=== PATIENT | female | born 1960 | race Caucasian/White ===

== ENCOUNTER → 2017-09-11 | Outpatient (CLI) | payer BC ==
[~2017-09-11] MED LIST: ADVIN25/60 INH; AMT25 PO; CLON1TAB PO; ERGO50002 PO; FLV1 PO; LXP/20 PO; NALT50TA16 PO; NCDT21 EXT; SNG10 PO; SPIR25TA89 PO; THIA100T14 PO; UMEC1INH PO; VST25HP PO
[2017-09-11 13:24] LABS: BASO % 0.2 %; BASO ABS # 0.01 K/uL (0-0.2); EOS % 0.7 %; EOS ABS # 0.04 K/uL (0-0.5); HEMATOCRIT 40.5 % (37-47); HEMOGLOBIN 13.8 g/dL (12.0-16.0); MEAN CELL VOLUME 95.3 fL (80-100); MEAN CORPUSCULAR HEMOGLOBIN 32.5 pg (25-34); MEAN CORPUSCULAR HGB CONC 34.1 g/dl (32-36); MEAN PLATELET VOLUME 9.2 fL (7.4-10.4); MONO ABS # 0.59 K/uL (0.11-0.59); NEUT % 67.1 %; NEUT ABS # 3.97 K/uL (1.4-6.5); PLATELET COUNT 106 K/uL (130-400); RED CELL DISTRIBUTION WIDTH CV 14.3 % (11.5-14.5); RED CELL DISTRIBUTION WIDTH SD 48.8 fL (36.4-46.3); WHITE BLOOD COUNT 5.91 K/uL (4.8-10.8)
[2017-09-11 13:31] LABS: HEMOGLOBIN A1C 5.1 % (4.5-5.6)
[2017-09-11 13:52] LABS: ALBUMIN 3.2 gm/dl (3.4-5.0); BLOOD UREA NITROGEN 11 mg/dl (7-18); CALCIUM 9.4 mg/dl (8.5-10.1); CARBON DIOXIDE 33 mmol/L (21-32); CREATININE 0.66 mg/dl (0.60-1.20); GLUCOSE 86 mg/dl (70-99); LIPASE 175 U/L (73-393); POTASSIUM 3.8 mmol/L (3.5-5.1); SODIUM 136 mmol/L (136-145)
[2017-09-11 14:03] LABS: ALKALINE PHOSPHATASE 83 U/L (45-117); ALT/SGPT 16 U/L (12-78); AST/SGOT 16 U/L (15-37); TOTAL PROTEIN 7.1 gm/dl (6.4-8.2)
== END | disposition home or self-care (01) ==
LOC: C.LAB 12:11
DX: R73.9 Hyperglycemia, unspecified (principal); E78.5 Hyperlipidemia, unspecified; J44.9 Chronic obstructive pulmonary disease, unspecified; Z79.899 Other long term (current) drug therapy

== ENCOUNTER 2018-08-13 15:14 | Inpatient (IN) ==
[2018-08-13] MEDS ORDERED: FOLIC ACID 1 MG in SYRINGE 9.8 ML IV STA (16:20)
[2018-08-13] MEDS ORDERED: THIAMINE HCL 100 MG in SYRINGE 9 ML IV STA (16:20)
[2018-08-13] MEDS ORDERED: SODIUM CHLORIDE 0.9% 1000ML 2,000 ML IV ONE (16:20)
[2018-08-13] MEDS ORDERED: HYDROCORTISONE SOD SUCCINATE 100 MG/2 ML VIAL IV STA (16:20)
[2018-08-13] MEDS ORDERED: ALBUTEROL 0.083% NEBU SOLN 3 ML VIAL NEB STA (16:22)
[2018-08-13] MEDS ORDERED: LEVOFLOXACIN/D5W 750 MG/150 ML BAG IV SCH (16:30)
[2018-08-13] MEDS ORDERED: MULTIVITAMIN TAB PO SCH (16:30)
[2018-08-13] MEDS ORDERED: VANCOMYCIN HCL 1,500 MG in SODIUM CHLORIDE 0.9% 500 ML IV ONE (16:45)
[2018-08-13] MEDS ORDERED: VANCOMYCIN CONSULT ACTIVE PRN ×2 (16:45→20:12)
[2018-08-13 16:47] LABS: Hematocrit (blood only) 38.9 % (37-47); Hemoglobin 13.5 g/dL (12.0-16.0); Mean Corpuscular Hgb Conc 34.7 g/dL (32-36); Mean Platelet Volume 10.3 fL (7.4-10.4); Platelet Count 154 K/uL (130-400); RDW Coefficient of Variation 13.7 % (11.5-14.5); RDW Standard Deviation 46.4 fL (36.4-46.3); Red Blood Count 4.14 M/uL (4.2-5.4); White Blood Count 23.52 K/uL (4.8-10.8)
[2018-08-13 16:47] LABS: iSTAT Creatinine 1.2 mg/dl (0.6-1.3); iSTAT Ionized Calcium 1.02 mmol/l (1.12-1.32); iSTAT Potassium 5.8 mEq/L (3.3-5.0)
--- NOTE | 2018-08-13 16:48 | XRay Report ---
XR chest 1V portable HISTORY: Sepsis COMPARISON: Chest 05/01/2016. FINDINGS: There is a new left lower lobe consolidation. Small focal consolidation also seen within th e left midlung zone. This likely represents a pneumonia. No pneumothorax. The heart is normal in size . The right lung is clear. IMPRESSION: There are new left mid to lower lung zone airspace opacities consistent with a pneumonia. This could be secondary to aspiration. Electronically signed by: Malvin Garcia M.D. 08/13/2018 4:47 PM
[2018-08-13 16:54] LABS: Base Excess VBG -0.5 mEq/L; HCO3 VBG 26 mmol/L; PCO2 VBG 52 mmHg (38-50); PO2 VBG 28 mmHg; pH VBG 7.32 (7.36-7.41)
[2018-08-13 16:56] LABS: Oxygen Saturation VBG < 60.0 %
[2018-08-13 17:09] LABS: Albumin Globulin Ratio 0.3 (0.9-2); Albumin Level 1.8 gm/dl (3.4-5.0); BUN Creatinine Ratio 24.2 (10-20); Bilirubin,Total 0.8 mg/dl (0.2-1); Calcium 9.1 mg/dl (8.5-10.1); Creatinine Clr Calc Pharmacy 33.3 ml/min; Est GFR (African American) 73.2; Est GFR (Non-African American) 63.1; Globulin 5.6 gm/dl (2.5-4.0); Total Protein 7.4 gm/dl (6.4-8.2)
[2018-08-13] MEDS ORDERED: OPTIRAY 320 125ml IV PRN (17:09)
[2018-08-13 17:14] LABS: Potassium 4.1 mmol/L (3.5-5.1)
[2018-08-13 17:24] LABS: ALC (manual) 1.22 K/uL (1.2-3.4); Lymphocytes # (manual) 1.22 K/uL (1.2-3.4); Lymphocytes % (manual) 5.2 %; Monocytes # (manual) 1.83 K/uL (0.11-0.59); Monocytes % (manual) 7.8 %; Polychromasia 1+; Toxic Granulation 2+
[2018-08-13] MEDS ORDERED: CEFEPIME 1,000 MG in SYRINGE 0 ML IV STA (17:28)
--- NOTE | 2018-08-13 17:40 | CT Scan Report ---
ABDOMEN AND PELVIS CT WITH IV CONTRAST CT DOSE: HISTORY: sepsis TECHNIQUE: Multiaxial CT images of the abdomen and pelvis were performed following the use of intrave nous contrast. A dose lowering technique was utilized adhering to the principles of ALARA. COMPARISON STUDY: Abdomen and pelvis CT 04/22/2014. FINDINGS: Dense consolidation within the lingula and left lower lobe with heterogeneous enhancement. There is a moderate hiatus hernia. Small patchy densities within the base the right lung base. A few small cavitary foci within the dense consolidation within the lingula. Therefore, this may represent a necrotizing pneumonia. No pneumoperitoneum. No pneumatosis. Bilateral femoral head avascular necros is no evidence for femoral head collapse. No suspicious lytic or blastic osseous lesions. Mild hepati c steatosis. Mild nodular contour to the liver consistent with cirrhosis. The spleen, adrenal glands, pancreas, and kidneys appear unremarkable. Of note, there is mild motion artifact within the abdomen resulting in suboptimal evaluation. No retroperitoneal lymphadenopathy. Mild calcified plaque within the normal caliber abdominal aorta. No hydronephrosis. The bladder, uterus, and bilateral adnexa are unremarkable. There is mild pelvic floor collapse. No bowel wall thickening or obstruction. Normal a ppendix. Extensive colonic diverticulosis. IMPRESSION: 1. No bowel wall thickening or obstruction. 2. Normal appendix. 3. Mild hepatic cirrhosis. 4. Dense heterogeneous consolidation within the left lung base containing a few small cavitary foci. This likely represents a necrotizing pneumonia. Follow-up is recommended to ensure resolution and to exclude the possibility of underlying mass. This is better appreciated on the same day chest CT. 5. Moderate hiatus hernia. Electronically signed by: Malvin Garcia M.D. 08/13/2018 5:39 PM
--- NOTE | 2018-08-13 17:45 | CT Scan Report ---
CT ANGIOGRAPHY OF THE CHEST, PULMONARY EMBOLUS PROTOCOL CLINICAL HISTORY: Hypotension. Tachycardia. COMPARISON STUDY: Chest radiograph May 01, 2016 and August 13, 2018. TECHNIQUE: Following IV administration of 117 mL of Optiray-320, helical axial images of the chest we re obtained utilizing the pulmonary embolus protocol. Maximal intensity projections and sagittal and coronal reformats were viewed on an independent 3D workstation. IV contrast was administered withou t complication. Automated exposure control was utilized for the study. A dose lowering technique wa s utilized adhering to the principles of ALARA. CT DOSE: 460.76 mGy.cm FINDINGS: No pulmonary emboli are identified. There is no thoracic aortic dissection. The size of th e heart is normal. There is a moderate sized hiatal hernia. There is dense consolidation within the l ingula and the left lower lobe. Scattered additional airspace opacities throughout the lungs are note d. There is a trace left pleural effusion. There is no pneumothorax. Moderate emphysema is present. S ecretions within the bilateral mainstem bronchi are noted. No suspicious osseous lesions within the b laury thorax are noted. The abdomen and pelvis will be reported separately. Minimally enlarged mediasti nal and left hilar lymph nodes are noted. These measure up to 1 cm in short axis diameter. IMPRESSION: 1. No pulmonary emboli identified. 2. Extensive lingular and left lower lobe consolidation consistent with pneumonia/aspiration pneumoni tis. Scattered airspace opacities throughout the lungs which are likely infectious as well. No centra l obstructing mass. Secretions within the airways. 3. Moderate emphysema. 4. Mildly enlarged mediastinal and left hilar lymph nodes which are likely reactive. However a follow -up chest CT in 2 months to ensure resolution is recommended. 5. Moderate-sized hiatal hernia. Electronically signed by: Jeffry Milian M.D. 08/13/2018 5:44 PM
[2018-08-13] MEDS ORDERED: SODIUM CHLORIDE 0.9% 1000ML 1,000 ML IV ONE (17:48)
[2018-08-13 17:52] LABS: INR 1.2 (0.9-1.1); Partial Thromboplastin Ratio 1.1; Partial Thromboplastin Time 29.2 Seconds (21.0-31.0); Prothrombin Time 11.8 Seconds (9.0-12.0)
[2018-08-13] MEDS ORDERED: cefTRIAXone SODIUM 1000MG/50ML D5W ONE (17:58)
--- NOTE | 2018-08-13 18:17 | Critical Care Consultation ---
Date of Consultation August 13, 2018 Assessment & Plan (1) Pneumonia: Neuro- awake alert. watch for signs of alcohol withdrawal CV- hypotension responded to fluids. still appears volume depleted. continue fluids. recheck lactate Pulmonary- acute hypoxic respiratory failure due to pneumonia. continue to titrate o2 for sat >90. if desatting would try high flow NC. ID- sepsis with evidence of end organ dysfunction due to pneumonia. follow cultures. vancomycin, ceftriaxone and azithromycin. check influenza Renal- cr ok. hyponatremia. potassium high on POC but ok on labs GI- diet as tolerated. LFTS increased likely related to alcohol abuse Heme- leukocytosis. heparin or enoxaparin proph Endocrine- blood sugar controlled Dispo- ok for admission to floor History of Present Illness Reason for Consultation: pneumonia, hypoxic respiratory failure History of Present Illness 58 y/o female with a history of COPD, alcohol abuse who presents with shortness of breath worse over the past 5 days. She says all winter she has been short of breath on and off and was given abx twice by PCP last in June. This time she has had a productive cough. denies fevers but has had chills. no sick contacts. Says has been drinking alcohol and smoking more the past month since she was started on adderal which has since been stopped. she has not been eat ing or drinking well for the last few days. Her last drink of alcohol was this morning. In the ED she was found to be hypotensive and hypoxic. after fluids her BP improved and her sat improved with simple face mask. Allergies Allergy/AdvReac Type Severity Reaction Status Date / Time RACIEL Inhibitors AdvReac Mild COUGH Verified 08/13/18 18:06 naltrexone [From Vivitrol] AdvReac Unknown Unverified 08/13/18 18:06 Home Medications Home Medications Medication Instructions Recorded Confirmed Type acamprosate 0 dose PO UNKNOWN 08/13/18 08/13/18 History budesonide-formoterol [Symbicort] 1 dose INHALATION DAILY 08/13/18 08/13/18 History dextroamphetamine-amphetamine 1.5 mg PO DIRECTED 08/13/18 08/13/18 History [Adderall] divalproex 500 mg PO DAILY 08/13/18 08/13/18 History escitalopram oxalate [Lexapro] 20 mg PO DAILY 08/13/18 08/13/18 History trazodone 0 mg PO DAILY PRN 08/13/18 08/13/18 History Patient History Medical History Tachycardia (Acute 08/17/13) Alcohol withdrawal syndrome (Acute) COPD (chronic obstructive pulmonary disease) (Chronic) Asthma (Chronic) Jaundice (Acute) Leukocytosis (Acute 04/21/14) Liver failure, acute (Acute 04/21/14) ETOH abuse (Resolved 08/17/13) Alcoholic hepatitis (Chronic) Social History marital status: Feels Safe at Home: Yes Smoking Status: Current every day smoker Hx Alcohol Use: Yes Review of Systems Constitutional: no fevers + chills no weight loss Eyes: no blurry or double vision EENT: no sore throat, no congestion Respiratory: + cough + shortness of breath Cardiovascular: + chest pain no palpitations GI: no abdominal pain, no nausea, no vomiting, no diarrhea, no constipation Gu: no dysuria, no frequency MSK: no joint pain, + muscle aches Skin: no rash Neuro: no headache, no dizziness, no focal weakness Endocrine: no heat or cold intolerance heme: no easy bruising, no lymphadenopathy Psych: + depression, no anxiety Physical Exam Vital Signs (Past 24 Hours): Last Vital Signs Temp 36.7 C 08/13/18 16:01 Pulse 99 H 08/13/18 17:53 Resp 22 08/13/18 17:53 BP 92/50 L 08/13/18 17:40 Pulse Ox 90 08/13/18 17:53 Physical Exam: Constitutional: Comfortable NAD on simple mask at 5L HEENT: normocephalic atraumatic. dry mucus membranes. no cervical lymphadenopathy CV: RRR nl s1,s2 no murmurs rubs or gallops Lungs: crackles bilaterally. no accessory muscle use Abd: soft nontender nondistended. normal bowel sounds Ext: no edema. no cyanosis, no clubbing Skin: warm dry Neuro: alert and oriented. moving all extremities Psych: normal mood and affect Results & Data Laboratory Results Laboratory Results - last 24 hr 08/13/18 08/13/18 08/13/18 16:28 16:28 16:28 WBC 23.52 H RBC 4.14 L Hgb 13.5 POC Hgb Hct 38.9 POC Hct MCV 94.0 MCH 32.6 MCHC 34.7 RDW Std Deviation 46.4 H RDW Coeff of Don 13.7 Plt Count 154 MPV 10.3 Neutrophils % (Manual) 87.0 Lymphocytes % (Manual) 5.2 Monocytes % (Manual) 7.8 Neutrophils # (Manual) 20.46 H Total Absolute Neuts 20.46 H Lymphocytes # (Manual) 1.22 Total Abs Lymphocytes 1.22 Monocytes # (Manual) 1.83 H Hyposegmented Neuts 1+ Toxic Granulation 2+ Polychromasia 1+ PT Cancelled INR Cancelled APTT Cancelled PTT Ratio Cancelled VBG pH VBG pCO2 VBG pO2 VBG HCO3 VBG O2 Saturation VBG Base Excess Barometric Pressure POC Sodium Sodium 132 L POC Potassium Potassium 4.1 POC Chloride Chloride 92 L Carbon Dioxide 26 POC Total CO2 Anion Gap 14.0 H POC Anion Gap POC BUN BUN 24 H Creatinine 0.98 POC Creatinine Est Cr Clr Drug Dosing 33.3 Est GFR ( Amer) 73.2 Est GFR (Non-Af Amer) 63.1 BUN/Creatinine Ratio 24.2 H Glucose 95 POC Glucose (other) POC Lactic Acid Amor Lactate Calcium 9.1 POC Ioniz Calcium Yann Total Bilirubin 0.8 AST 109 H ALT 95 H Alkaline Phosphatase 178 H Total Protein 7.4 Albumin 1.8 L Globulin 5.6 H Albumin/Globulin Ratio 0.3 L Specimen Hemolysis Ethyl Alcohol mg/dL 08/13/18 08/13/18 08/13/18 16:28 16:30 16:34 WBC RBC Hgb POC Hgb 15.0 Hct POC Hct 44 MCV MCH MCHC RDW Std Deviation RDW Coeff of Don Plt Count MPV Neutrophils % (Manual) Lymphocytes % (Manual) Monocytes % (Manual) Neutrophils # (Manual) Total Absolute Neuts Lymphocytes # (Manual) Total Abs Lymphocytes Monocytes # (Manual) Hyposegmented Neuts Toxic Granulation Polychromasia PT INR APTT PTT Ratio VBG pH VBG pCO2 VBG pO2 VBG HCO3 VBG O2 Saturation VBG Base Excess Barometric Pressure POC Sodium 129 L Sodium POC Potassium 5.8 H Potassium POC Chloride 92 L Chloride Carbon Dioxide POC Total CO2 28 Anion Gap POC Anion Gap 16.0 POC BUN 34 H BUN Creatinine POC Creatinine 1.2 Est Cr Clr Drug Dosing Est GFR ( Amer) Est GFR (Non-Af Amer) BUN/Creatinine Ratio Glucose POC Glucose (other) 104 H POC Lactic Acid Amor 3.50 H Lactate 3.7 H* Calcium POC Ioniz Calcium Yann 1.02 L Total Bilirubin AST ALT Alkaline Phosphatase Total Protein Albumin Globulin Albumin/Globulin Ratio Specimen Hemolysis Ethyl Alcohol mg/dL 08/13/18 08/13/18 08/13/18 16:36 16:49 17:32 WBC RBC Hgb POC Hgb Hct POC Hct MCV MCH MCHC RDW Std Deviation RDW Coeff of Don Plt Count MPV Neutrophils % (Manual) Lymphocytes % (Manual) Monocytes % (Manual) Neutrophils # (Manual) Total Absolute Neuts Lymphocytes # (Manual) Total Abs Lymphocytes Monocytes # (Manual) Hyposegmented Neuts Toxic Granulation Polychromasia PT 11.8 INR 1.2 H APTT 29.2 PTT Ratio 1.1 VBG pH 7.32 L VBG pCO2 52 H VBG pO2 28 VBG HCO3 26 VBG O2 Saturation < 60.0 VBG Base Excess -0.5 Barometric Pressure 734.4 POC Sodium Sodium POC Potassium Potassium POC Chloride Chloride Carbon Dioxide POC Total CO2 Anion Gap POC Anion Gap POC BUN BUN Creatinine POC Creatinine Est Cr Clr Drug Dosing Est GFR ( Amer) Est GFR (Non-Af Amer) BUN/Creatinine Ratio Glucose POC Glucose (other) POC Lactic Acid Amor Lactate Calcium POC Ioniz Calcium Yann Total Bilirubin AST ALT Alkaline Phosphatase Total Protein Albumin Globulin Albumin/Globulin Ratio Specimen Hemolysis Ethyl Alcohol mg/dL 105.[address] ANGIOGRAPHY OF THE CHEST, PULMONARY EMBOLUS PROTOCOL CLINICAL HISTORY: Hypotension. Tachycardia. COMPARISON STUDY: Chest radiograph May 01, 2016 and August 13, 2018. TECHNIQUE: Following IV administration of 117 mL of Optiray-320, helical axial images of the chest were obtained utilizing the pulmonary embolus protocol. Maximal intensity projections and sagittal and coronal reformats were viewed on an independent 3D workstation. IV contrast was administered without complication. Automated exposure control was utilized for the study. A dose lowering technique was utilized adhering to the principles of ALARA. CT DOSE: 460.76 mGy.cm FINDINGS: No pulmonary emboli are identified. There is no thoracic aortic dissection. The size of the heart is normal. There is a moderate sized hiatal hernia. There is dense consolidation within the lingula and the left lower lobe. Scattered additional airspace opacities throughout the lungs are noted. There is a trace left pleural effusion. There is no pneumothorax. Moderate emphysema is present. Secretions within the bilateral mainstem bronchi are noted. No suspicious osseous lesions within the bony thorax are noted. The abdomen and pelvis will be reported separately. Minimally enlarged mediastinal and left hilar lymph nodes are noted. These measure up to 1 cm in short axis diameter. IMPRESSION: 1. No pulmonary emboli identified. 2. Extensive lingular and left lower lobe consolidation consistent with pneumonia/aspiration pneumonitis. Scattered airspace opacities throughout the lungs which are likely infectious as well. No central obstructing mass. Secretions within the airways. 3. Moderate emphysema. 4. Mildly enlarged mediastinal and left hilar lymph nodes which are likely reactive. However a follow-up chest CT in 2 months to ensure resolution is recommended. 5. Moderate-sized hiatal hernia. Electronically signed by: Jeffry Milian M.D. 08/13/2018 5:44 PM
--- NOTE | 2018-08-13 18:48 | History & Physical Report ---
Date of Service August 13, 2018 Assessment & Plan (1) Left lower lobe pneumonia: Necrotizing pneumonia seen on CTA chest on 08/13. Concerning for aspiration; possibly due to intoxication. - Vanc/Zosyn/azithromycin - Pulmonary consult - MRSA swab - Sputum cx - DuoNebs standing and PRN - Prednisone - Supplemental O2 PRN - Consider high flow if needed - Low threshold for ICU transfer as patient is full code and has increased work of breathing (2) COPD (chronic obstructive pulmonary disease): Wheezing and tightness on exam. Pneumonia likely causing a COPD exacerbation as well. - Treatment as above - Continue home Symbicort (3) Severe sepsis: Hypotension and elevated lactate with known source of infection. SIRS 3/4 and qSOFA 2/3. - BP improved to 100/50 with 30 mL/kg IVF bolus - I performed a sepsis follow up exam at 6:00pm. Good cap refill. BP normalized. (4) Alcoholic hepatitis: AST/ALT were 109/95 on admission. Maddrey's DF was only 4, making steroids unneccesary. Has had multiple alcoholic hepatitis episodes during prior admission. CT a/p on 08/13 indicated possible mild cirrhosis. - Monitor LFTs - Defer GI consult unless LFTs rise or there is other, new concern (5) ETOH abuse: Per , drinks 1.75L/wk of vodka. Prior detox episodes in our hospital. No seizures or DTs per patient and . EtOH level was 106 on admission. - TAVO protocol - Vitamin repletion - Continue divalproex (6) DVT prophylaxis: SCDs - Low risk per calculator History of Present Illness Primary Care Provider: Bentley Childs Jr, DO 58yo F w/ hx of COPD and alcohol abuse who presents for shortness of breath, fevers, and chills and found to have a large left lower lobe pneumonia. Patient reports that she has had respiratory symptoms the entire winter. She has been o n 2 rounds of antibiotics and steroids through her PCP. She reports that over the last 2 weeks she has felt increasing shortness of breath, fevers, chills, and sputum production. She also notes that her sputum has gone from clear to white to dark in the last day. Finally she notes a severe frontal headache which began today, and has not improved with [id number] ibuprofen or aspirin. She went to her PCPs office today and was found to be hypoxemic to the 80s on room air, heart rate was 140, and she was hypotensive in the office. She was sent to the emergency department. After 2 L of IV fluid, her heart rate is down to the 90s and her blood pressure is up to 100/50. She is breathing with good O2 saturation on an oxygen mask. Her reports that she drinks 1.75 L of vodka per week. She has had withdrawals in the past, but denies history of DTs or seizures with alcohol withdrawal. Allergies Allergy/AdvReac Type Severity Reaction Status Date / Time RACIEL Inhibitors AdvReac Mild COUGH Verified 08/13/18 18:06 naltrexone [From Vivitrol] AdvReac Unknown Unverified 08/13/18 18:06 Home Medications Home Medications Medication Instructions Recorded Confirmed Type acamprosate 0 dose PO UNKNOWN 08/13/18 08/13/18 History budesonide-formoterol [Symbicort] 2 puff INHALATION BID 08/13/18 08/13/18 History dextroamphetamine-amphetamine 1.5 mg PO DIRECTED 08/13/18 08/13/18 History [Adderall] divalproex 500 mg PO DAILY 08/13/18 08/13/18 History escitalopram oxalate [Lexapro] 20 mg PO DAILY 08/13/18 08/13/18 History trazodone 0 mg PO DAILY PRN 08/13/18 08/13/18 History Past Med/Surg History Medical History Tachycardia (Acute 08/17/13) Alcohol withdrawal syndrome (Acute) COPD (chronic obstructive pulmonary disease) (Chronic) Asthma (Chronic) Jaundice (Acute) Leukocytosis (Acute 04/21/14) Liver failure, acute (Acute 04/21/14) ETOH abuse (Resolved 08/17/13) Alcoholic hepatitis (Chronic) Left lower lobe pneumonia Surgical History S/P removal of ovarian cyst Family History Father Hypertension Social History marital status: Feels Safe at Home: Yes Smoking Status: Current every day smoker Hx Alcohol Use: Yes Review of Systems Constitutional: + fever, + chills, + body aches, + fatigue and + weakness; no sweats Eyes: no diplopia Ear, Nose, Mouth, Throat: no ear trauma, no nasal discharge and no dental pain Respiratory: + cough, + chest congestion, + dyspnea and + wheezing Cardiovascular: no chest pain, no dyspnea on exertion, no palpitations and no syncope Gastrointestinal: no abdominal pain, no belching, no constipation, no diarrhea/loose stools, no blood in stools and no melena Musculoskeletal: no back pain, no joint pain and no muscle weakness Integumentary: no rash, no skin ulcer and no erythema Neurologic: no generalized weakness, no loss of sensation, no numbness and no paresthesia Psychiatric: no depression and no anxiety Endocrine: no fatigue, no polydipsia and no polyphagia Physical Exam Vital Signs (Past 24 Hours): Last Vital Signs Temp 36.7 C 08/13/18 16:01 Pulse 99 H 08/13/18 17:53 Resp 22 08/13/18 17:53 BP 92/50 L 08/13/18 17:40 Pulse Ox 90 08/13/18 17:53 Constitutional: WD/WN, vitals as above + acute distress, + intoxicated appearing, + frail appearing and cooperative; + not well nourished Eyes: EOM intact bilaterally; no conjunctival abnormality ENMT: external ear and nose normal, oropharynx normal Neck: trachea midline, no thyromegaly normal visual inspection Respiratory: normal respiratory effort, lungs clear to auscultation + respiratory distress, + labored breathing, + uses accessory muscles, + cough and + tachypneic Auscultation: + diminished lung sounds (Poor air movement) and + wheezes Cardiovascular: Rate/Rhythm: + tachycardic Heart Sounds: normal S1 and normal S2 Gastrointestinal (Abdomen): Inspection/Auscultation: abdomen normal to inspection; abdomen not distended Musculoskeletal: no cyanosis or clubbing, extremities motor strength 5/5 Skin: no rashes, warm and dry Neurologic: moves all extremities and awake Psychiatric: Orientation: alert, oriented to person and cooperative
[2018-08-13 19:28] LABS: Appearance Urine Clear (Clear); Bilirubin Urine Negative (Negative); Blood Urine Negative (Negative); Color Urine Yellow; Glucose Urine UA Negative (Negative); Ketones Urine Negative (Negative); Leukocyte Esterase Urine Negative (Negative); Nitrite Urine Negative (Negative); Protein Urine Negative (Negative); Specific Gravity Urine 1.023 (1.000-1.030); Urobilinogen Urine Negative (Negative); pH Urine 5.5 (4.5-7.5)
[2018-08-13] MEDS ORDERED: SODIUM CHLORIDE 0.9% 1000ML 1,000 ML IV SCH (20:12)
[2018-08-13] MEDS ORDERED: PIPERACILLIN/TAZOBACTAM 3.375 GM in DEXTROSE 5% 100 ML IV SCH (20:12)
[2018-08-13] MEDS ORDERED: PIPERACILL/TAZOBAC CONSULT ACTIVE PRN (20:12)
[2018-08-13] MEDS ORDERED: LORazepam 1 MG TAB PO PRN (20:12)
[2018-08-13] MEDS ORDERED: LORazepam 1 MG/2 ML VIAL IV PRN (20:12)
[2018-08-13] MEDS ORDERED: ACETAMINOPHEN 500 MG TAB PO PRN (20:12)
[2018-08-13] MEDS ORDERED: ONDANSETRON INJ 2 MG/ML 2 ML VIAL IV PRN (20:12)
[2018-08-13] MEDS: ALBUT/IPRATROP 3MG/0.5MG NEB 3 ML VIAL NEB SCH ×2 (20:28→23:32)
[2018-08-13] MEDS ORDERED: PIPERACILLIN/TAZOBACTAM 4.5 GM in DEXTROSE 5% 100 ML IV ONE (20:45)
[2018-08-13] MEDS: THIAMINE HCL 100 MG TAB PO SCH (21:02)
[2018-08-13] MEDS: AZITHROMYCIN 500 MG in DEXTROSE 5% 250 ML IV SCH (21:20)
[2018-08-13] MEDS: BUDESONIDE/FORMOTEROL FUMARATE 80/4.5 60 PUFFS/INHALER INH SCH (21:20)
[2018-08-13] MEDS: ESCITALOPRAM OXALATE 20 MG TAB PO SCH (21:21)
--- NOTE | 2018-08-13 22:45 | Emergency Department Note ---
Entered by Azeem Lewis acting as a scribe for Robby Flowers DO History of Present Illness General Chief complaint: Referred by Doctor Stated complaint: LACK OF OXYGEN-POSSIBLE PE Source: patient and family Limitations: no limitations History of Present Illness Provider complaint: SOB/Cough Onset (ago): week(s) (1 week) Location: chest Pain Consistency: + other (worsening) Maximum Pain Intensity: 10 Quality: + other (SOB/COUGH) Associated symptoms: + nausea/vomiting, + shortness of breath and + other (diarrhea); no headaches Treatments prior to arrival: other (steroids antibiotics) The patient is a 58 year old female who presents to the Emergency Room with complaints of an acute exacerbation of shortness of breath. The patient notes a significant history of COPD and bronchitis for "a long time." She states that her current exacerbation began 1 week ago. She has seen her primacy care physician 2-3 times for this exacerbation and notes that she was started on multiple antibiotics and steroids. She adds that she has a tendency to get bronchitis. The patient states that her symptoms started 1 week ago with pain in her left shoulder, which then radiated to the right shoulder as well. After the shoulder pain began she then began to develop the worsening cough and runny nose. She notes that the cough has been producing mucous, and does provoke some abdominal pain. Her abdominal pain is worsened by the cough. The patient adds that she has been having vomiting and diarrhea. She had 3 bouts of diarrhea today. She has not vomited today, but states that she has been "dry-heaving." She denies any additional urinary symptoms. The patient's at bedside adds that she wears 2L of oxygen at night, but does not wear oxygen throughout the day. He also notes that the patient has a history of alcohol abuse and dependancy. The patient admits that she began to drink heavily again about 8 mon ths ago. She adds that she had 2 drinks so far today. Home Medications Home Medications Medication Instructions Recorded Confirmed Type budesonide-formoterol [Symbicort] 2 puff INHALATION BID 08/13/18 08/13/18 History dextroamphetamine-amphetamine 1.5 mg PO DIRECTED 08/13/18 08/13/18 History [Adderall] divalproex 500 mg PO DAILY 08/13/18 08/13/18 History escitalopram oxalate [Lexapro] 20 mg PO DAILY 08/13/18 08/13/18 History trazodone 0 mg PO DAILY PRN 08/13/18 08/13/18 History Allergies Allergy/AdvReac Type Severity Reaction Status Date / Time RACIEL Inhibitors AdvReac Mild COUGH Verified 08/13/18 18:06 naltrexone [From Vivitrol] AdvReac Unknown Unverified 08/13/18 18:06 Past Med/Surg History Medical History Tachycardia (Acute 08/17/13) Alcohol withdrawal syndrome (Acute) COPD (chronic obstructive pulmonary disease) (Chronic) Asthma (Chronic) Jaundice (Acute) Leukocytosis (Acute 04/21/14) Liver failure, acute (Acute 04/21/14) ETOH abuse (Resolved 08/17/13) Alcoholic hepatitis (Chronic) Left lower lobe pneumonia Surgical History S/P removal of ovarian cyst Family History Father Hypertension Social History Preferred Language: Greenlandic Communication Ability: Effective Skewer Up Required: No Beliefs That Will Affect Care: None marital status: Current Living Situation: Spouse Other Information That Helps Us Care for You: No Feels Safe at Home: Yes Safety Concerns: Feels Safe At This Time Smoking Status: Current every day smoker Hx Alcohol Use: Yes Hx Substance Use: Yes Review of Systems See HPI for pertinent positives & negatives. and A total of 10 systems reviewed and were otherwise negative Physical Exam Vital Signs Vital Signs - 24 hr 08/13/18 16:01 08/13/18 16:19 08/13/18 16:20 Temperature 36.7 C Temperature Source Oral Sepsis Recent Fever Within 48 Hours No Sepsis New/Unexplained Change in Mental Status No Sepsis Action Taken by Nursing No Action Required Pulse Rate 141 H 136 H Pulse Rate [Right Finger] Pulse Rate from SpO2 Sensor 136 H Respiratory Rate 28 H 29 H Respiratory Effort / Characteristics Respiratory Depth Respiratory Pattern Blood Pressure 79/54 L 80/56 L Blood Pressure [Left Arm] Blood Pressure Mean 62 64 Blood Pressure Mean [Left Arm] Blood Pressure Position Sitting Blood Pressure Position [Left Arm] Pulse Oximetry 89 L 91 84 L Oxygen Delivery Method Nasal Cannula Nasal Cannula Oxygen Flow Rate 4 2 08/13/18 16:22 08/13/18 16:27 08/13/18 16:30 Temperature Temperature Source Sepsis Recent Fever Within 48 Hours Sepsis New/Unexplained Change in Mental Status Sepsis Action Taken by Nursing Pulse Rate 136 H 134 H 131 H Pulse Rate [Right Finger] Pulse Rate from SpO2 Sensor 137 H 135 H 130 H Respiratory Rate 28 H 30 H 31 H Respiratory Effort / Characteristics Respiratory Depth Respiratory Pattern Blood Pressure 91/52 L 77/60 L Blood Pressure [Left Arm] Blood Pressure Mean 65 65 Blood Pressure Mean [Left Arm] Blood Pressure Position Blood Pressure Position [Left Arm] Pulse Oximetry 90 89 L 91 Oxygen Delivery Method Oxygen Flow Rate 08/13/18 16:31 08/13/18 16:35 08/13/18 16:40 Temperature Temperature Source Sepsis Recent Fever Within 48 Hours Sepsis New/Unexplained Change in Mental Status Sepsis Action Taken by Nursing Pulse Rate 131 H 128 H 94 H Pulse Rate [Right Finger] Pulse Rate from SpO2 Sensor 132 H 127 H 95 H Respiratory Rate 26 H 28 H 25 H Respiratory Effort / Characteristics Respiratory Depth Respiratory Pattern Blood Pressure 76/61 L 91/53 L Blood Pressure [Left Arm] Blood Pressure Mean 66 65 Blood Pressure Mean [Left Arm] Blood Pressure Position Blood Pressure Position [Left Arm] Pulse Oximetry 92 93 89 L Oxygen Delivery Method Oxygen Flow Rate 08/13/18 16:41 08/13/18 16:50 08/13/18 16:52 Temperature Temperature Source Sepsis Recent Fever Within 48 Hours Sepsis New/Unexplained Change in Mental Status Sepsis Action Taken by Nursing Pulse Rate 92 H 97 H 96 H Pulse Rate [Right Finger] Pulse Rate from SpO2 Sensor 92 H 95 H 95 H Respiratory Rate 24 28 H 22 Respiratory Effort / Characteristics Respiratory Depth Respiratory Pattern Blood Pressure 95/72 L Blood Pressure [Left Arm] Blood Pressure Mean 79 Blood Pressure Mean [Left Arm] Blood Pressure Position Blood Pressure Position [Left Arm] Pulse Oximetry 91 73 L 94 Oxygen Delivery Method Oxygen Flow Rate 08/13/18 17:27 08/13/18 17:28 08/13/18 17:30 Temperature Temperature Source Sepsis Recent Fever Within 48 Hours Sepsis New/Unexplained Change in Mental Status Sepsis Action Taken by Nursing Pulse Rate 101 H 101 H 100 H Pulse Rate [Right Finger] Pulse Rate from SpO2 Sensor 102 H 102 H 101 H Respiratory Rate 19 25 H 27 H Respiratory Effort / Characteristics Respiratory Depth Respiratory Pattern Blood Pressure 97/74 L Blood Pressure [Left Arm] Blood Pressure Mean 81 Blood Pressure Mean [Left Arm] Blood Pressure Position Blood Pressure Position [Left Arm] Pulse Oximetry 83 L 83 L 88 L Oxygen Delivery Method Oxygen Flow Rate 08/13/18 17:36 08/13/18 17:40 08/13/18 17:41 Temperature Temperature Source Sepsis Recent Fever Within 48 Hours Sepsis New/Unexplained Change in Mental Status Sepsis Action Taken by Nursing Pulse Rate 101 H 99 H 101 H Pulse Rate [Right Finger] Pulse Rate from SpO2 Sensor 101 H 100 H 101 H Respiratory Rate 32 H 30 H 23 Respiratory Effort / Characteristics Respiratory Depth Respiratory Pattern Blood Pressure 84/61 L 92/50 L Blood Pressure [Left Arm] Blood Pressure Mean 68 64 Blood Pressure Mean [Left Arm] Blood Pressure Position Blood Pressure Position [Left Arm] Pulse Oximetry 88 L 89 L 90 Oxygen Delivery Method Oxygen Flow Rate 08/13/18 17:46 08/13/18 17:48 08/13/18 17:50 Temperature Temperature Source Sepsis Recent Fever Within 48 Hours Sepsis New/Unexplained Change in Mental Status Sepsis Action Taken by Nursing Pulse Rate 100 H 102 H 100 H Pulse Rate [Right Finger] Pulse Rate from SpO2 Sensor 100 H 102 H 100 H Respiratory Rate 29 H 27 H 27 H Respiratory Effort / Characteristics Respiratory Depth Respiratory Pattern Blood Pressure 91/70 L 100/65 98/63 L Blood Pressure [Left Arm] Blood Pressure Mean 77 76 74 Blood Pressure Mean [Left Arm] Blood Pressure Position Blood Pressure Position [Left Arm] Pulse Oximetry 91 91 89 L Oxygen Delivery Method Oxygen Flow Rate 08/13/18 17:51 08/13/18 17:53 08/13/18 17:55 Temperature Temperature Source Sepsis Recent Fever Within 48 Hours Sepsis New/Unexplained Change in Mental Status Sepsis Action Taken by Nursing Pulse Rate 99 H 98 H Pulse Rate [Right Finger] 99 H Pulse Rate from SpO2 Sensor 99 H 97 H Respiratory Rate 28 H 22 27 H Respiratory Effort / Characteristics Spontaneous Short of Breath Respiratory Depth Respiratory Pattern Blood Pressure 96/57 L Blood Pressure [Left Arm] Blood Pressure Mean 70 Blood Pressure Mean [Left Arm] Blood Pressure Position Blood Pressure Position [Left Arm] Pulse Oximetry 88 L 90 96 Oxygen Delivery Method Oxymask Oxygen Flow Rate 5 08/13/18 18:00 08/13/18 18:01 08/13/18 18:06 Temperature Temperature Source Sepsis Recent Fever Within 48 Hours Sepsis New/Unexplained Change in Mental Status Sepsis Action Taken by Nursing Pulse Rate 101 H 100 H 102 H Pulse Rate [Right Finger] Pulse Rate from SpO2 Sensor 100 H 100 H 101 H Respiratory Rate 23 26 H 28 H Respiratory Effort / Characteristics Respiratory Depth Respiratory Pattern Blood Pressure 104/57 L 102/70 Blood Pressure [Left Arm] Blood Pressure Mean 72 80 Blood Pressure Mean [Left Arm] Blood Pressure Position Blood Pressure Position [Left Arm] Pulse Oximetry 98 98 96 Oxygen Delivery Method Oxygen Flow Rate 08/13/18 18:10 08/13/18 18:12 08/13/18 18:20 Temperature Temperature Source Sepsis Recent Fever Within 48 Hours Sepsis New/Unexplained Change in Mental Status Sepsis Action Taken by Nursing Pulse Rate 105 H 105 H 107 H Pulse Rate [Right Finger] Pulse Rate from SpO2 Sensor 104 H 105 H 107 H Respiratory Rate 26 H 26 H 29 H Respiratory Effort / Characteristics Respiratory Depth Respiratory Pattern Blood Pressure 133/64 Blood Pressure [Left Arm] Blood Pressure Mean 87 Blood Pressure Mean [Left Arm] Blood Pressure Position Blood Pressure Position [Left Arm] Pulse Oximetry 98 95 90 Oxygen Delivery Method Oxygen Flow Rate 08/13/18 18:27 08/13/18 18:30 08/13/18 18:31 Temperature Temperature Source Sepsis Recent Fever Within 48 Hours Sepsis New/Unexplained Change in Mental Status Sepsis Action Taken by Nursing Pulse Rate 107 H 107 H 106 H Pulse Rate [Right Finger] Pulse Rate from SpO2 Sensor 107 H 107 H 106 H Respiratory Rate 28 H 28 H 29 H Respiratory Effort / Characteristics Respiratory Depth Respiratory Pattern Blood Pressure 100/54 L 97/56 L Blood Pressure [Left Arm] Blood Pressure Mean 69 69 Blood Pressure Mean [Left Arm] Blood Pressure Position Blood Pressure Position [Left Arm] Pulse Oximetry 90 88 L 87 L Oxygen Delivery Method Oxygen Flow Rate 08/13/18 18:35 08/13/18 18:40 08/13/18 18:41 Temperature Temperature Source Sepsis Recent Fever Within 48 Hours Sepsis New/Unexplained Change in Mental Status Sepsis Action Taken by Nursing Pulse Rate 107 H 106 H 106 H Pulse Rate [Right Finger] Pulse Rate from SpO2 Sensor 107 H 105 H 106 H Respiratory Rate 36 H 24 30 H Respiratory Effort / Characteristics Respiratory Depth Respiratory Pattern Blood Pressure 93/59 L 98/64 L Blood Pressure [Left Arm] Blood Pressure Mean 70 75 Blood Pressure Mean [Left Arm] Blood Pressure Position Blood Pressure Position [Left Arm] Pulse Oximetry 87 L 91 92 Oxygen Delivery Method Oxygen Flow Rate 08/13/18 18:45 08/13/18 18:50 08/13/18 18:52 Temperature Temperature Source Sepsis Recent Fever Within 48 Hours Sepsis New/Unexplained Change in Mental Status Sepsis Action Taken by Nursing Pulse Rate 105 H 106 H 103 H Pulse Rate [Right Finger] Pulse Rate from SpO2 Sensor 105 H 106 H 103 H Respiratory Rate 29 H 31 H 25 H Respiratory Effort / Characteristics Respiratory Depth Respiratory Pattern Blood Pressure 100/58 L 96/62 L Blood Pressure [Left Arm] Blood Pressure Mean 72 73 Blood Pressure Mean [Left Arm] Blood Pressure Position Blood Pressure Position [Left Arm] Pulse Oximetry 90 87 L 91 Oxygen Delivery Method Oxygen Flow Rate 08/13/18 18:56 08/13/18 19:00 08/13/18 19:01 Temperature Temperature Source Sepsis Recent Fever Within 48 Hours Sepsis New/Unexplained Change in Mental Status Sepsis Action Taken by Nursing Pulse Rate 100 H 98 H 100 H Pulse Rate [Right Finger] Pulse Rate from SpO2 Sensor 100 H 99 H 100 H Respiratory Rate 24 28 H 24 Respiratory Effort / Characteristics Respiratory Depth Respiratory Pattern Blood Pressure 83/46 L 79/48 L Blood Pressure [Left Arm] Blood Pressure Mean 58 58 Blood Pressure Mean [Left Arm] Blood Pressure Position Blood Pressure Position [Left Arm] Pulse Oximetry 92 93 93 Oxygen Delivery Method Oxygen Flow Rate 08/13/18 19:05 08/13/18 19:11 08/13/18 19:15 Temperature Temperature Source Sepsis Recent Fever Within 48 Hours Sepsis New/Unexplained Change in Mental Status Sepsis Action Taken by Nursing Pulse Rate 98 H 99 H 99 H Pulse Rate [Right Finger] Pulse Rate from SpO2 Sensor 98 H 100 H 99 H Respiratory Rate 23 26 H 30 H Respiratory Effort / Characteristics Respiratory Depth Respiratory Pattern Blood Pressure 81/50 L 92/57 L 83/46 L Blood Pressure [Left Arm] Blood Pressure Mean 60 68 58 Blood Pressure Mean [Left Arm] Blood Pressure Position Blood Pressure Position [Left Arm] Pulse Oximetry 92 86 L 93 Oxygen Delivery Method Oxygen Flow Rate 08/13/18 19:20 08/13/18 20:12 08/13/18 20:14 Temperature 36.7 C Temperature Source Oral Sepsis Recent Fever Within 48 Hours Sepsis New/Unexplained Change in Mental Status Sepsis Action Taken by Nursing Pulse Rate 98 H Pulse Rate [Right Finger] 96 H Pulse Rate from SpO2 Sensor 98 H Respiratory Rate 29 H 24 Respiratory Effort / Characteristics Spontaneous Grunting Labored SOB on Exertion Respiratory Depth Shallow Respiratory Pattern Tachypnea Blood Pressure 82/45 L Blood Pressure [Left Arm] 111/67 Blood Pressure Mean 57 Blood Pressure Mean [Left Arm] 81 Blood Pressure Position Blood Pressure Position [Left Arm] Lying Pulse Oximetry 94 92 92 Oxygen Delivery Method Oxymask Oxymask Oxygen Flow Rate 5 5 08/13/18 20:15 08/13/18 20:28 Temperature Temperature Source Sepsis Recent Fever Within 48 Hours Sepsis New/Unexplained Change in Mental Status Sepsis Action Taken by Nursing Pulse Rate Pulse Rate [Right Finger] 92 H Pulse Rate from SpO2 Sensor Respiratory Rate 20 Respiratory Effort / Characteristics Spontaneous Grunting Labored SOB on Exertion Non-Labored Spontaneous Respiratory Depth Normal Respiratory Pattern Tachypnea Blood Pressure Blood Pressure [Left Arm] Blood Pressure Mean Blood Pressure Mean [Left Arm] Blood Pressure Position Blood Pressure Position [Left Arm] Pulse Oximetry 90 Oxygen Delivery Method Oxymask Oxymask Oxygen Flow Rate 5 6 GENERAL: Sitting up in bed, ill and disheveled appearing, smell of alcohol on breath, non-toxic EYE EXAM: normal conjunctiva. OROPHARYNX: no exudate, no erythema, lips, buccal mucosa, and tongue normal and mucous membranes are dry. NECK: supple, no nuchal rigidity, no adenopathy, non-tender LUNGS: Diminished with bilateral wheezing. Normal chest wall mechanics HEART: Tachycardic. no murmurs, S1 normal and S2 normal ABDOMEN: abdomen soft, non-tender, normo-active bowel, sounds, no masses, no rebound or guarding. BACK: Back is symmetrical on inspection and there is no deformity, no midline tenderness, no CVA tenderness. SKIN: no rashes and no bruising UPPER EXTREMITIES: upper extremities are grossly normal. LOWER EXTREMITIES: No pitting edema. Calves equal bilaterally. NEURO EXAM: Normal sensorium, cranial nerves II-XII grossly intact, normal spee ch, no gross weakness of arms, no gross weakness of legs. Course ED COURSE: Vital signs were reviewed and showed hypotension, tachycardia, and hypoxia. The patients medical record was reviewed The above diagnostic studies were performed and reviewed. ED treatments and interventions as stated above. 1613: The patient was evaluated in room D9. A complete history and physical examination was performed. 1649: I checked on the patient. Her heart rate is down into the 90s. Blood pressure is 97/60. 1728: I discussed the case with Dr. Cool - [facility]. He will evaluate the patient for possible placement to ICU. 1732: I updated the patient at this time. Her blood pressure is 89 systolic. Will start a 3rd bag of fluid. 1741: Dr. Cool is at bedside at this time. 1751: I discussed the case with Dr. Cool, he suggests admitting to medicine. 1758: I reviewed the patient's case with Dr. Urias [facility]. He will evaluate the patient for further management. 1800: Upon reevaluation, the patient is resting in bed. I discussed my findings with the patient and she understands and agrees with the treatment plan. Based on the patients age, coexisting illnesses, exam and lab findings the decision to treat as an inpatient was made. The patient remained stable while under my care. The patient will be evaluated for further management. Administered Medications Albuterol (Duoneb) 3 ml NEB QIDR YASMANI Stop: 09/12/18 20:11 Last Admin: 08/13/18 20:28 Dose: 3 ml Documented by: [id number] Budesonide/Formoterol Fumarate (Symbicort 80mcg/4.5mcg) 2 puffs INH BID YASMANI Stop: 09/12/18 20:59 Last Admin: 08/13/18 21:20 Dose: 2 puffs Documented by: [id number] Divalproex Sodium (Depakote Extended Release) 500 mg PO DAILY YASMANI Stop: 09/13/18 08:59 Last Admin: 08/13/18 21:21 Dose: 500 mg Documented by: [id number] Escitalopram Oxalate (Lexapro) 20 mg PO DAILY YASMANI Stop: 09/13/18 08:59 Last Admin: 08/13/18 21:21 Dose: 20 mg Documented by: [id number] Azithromycin 500 mg/ Dextrose 255 mls @ 125 mls/hr IV DAILY@2100 YASMANI Stop: 08/20/18 20:59 Last Admin: 08/13/18 21:20 Dose: 125 mls/hr Documented by: [id number] Sodium Chloride (Nss 1000ml) 1,000 mls @ 80 mls/hr IV .[id number] YASMANI Stop: 09/12/18 20:11 Last Admin: 08/13/18 20:39 Dose: 80 mls/hr Documented by: [id number] Thiamine HCl (Vitamin B-1) 100 mg PO QAM YASMANI Stop: 09/12/18 20:44 Last Admin: 08/13/18 21:02 Dose: Not Given Documented by: [id number] Discontinued Medications Albuterol (Ventolin 0.083% 2.5mg/3ml) 7.5 mg NEB NOW STA Stop: 08/13/18 16:23 Last Admin: 08/13/18 17:51 Dose: 7.5 mg Documented by: [id number] Ceftriaxone Sodium (Rocephin) Confirm Administered Dose 1,000 mg .ROUTE .STK-MED ONE Stop: 08/13/18 17:59 Last Admin: 08/13/18 18:01 Dose: Not Given Documented by: [id number] Hydrocortisone Sodium Succinate (Solu-Cortef) 100 mg IV NOW STA Stop: 08/13/18 16:21 Last Admin: 08/13/18 17:59 Dose: 100 mg Documented by: [id number] Folic Acid 1 mg/ Syringe 10 mls @ 5 mls/min IV NOW STA Stop: 08/13/18 16:21 Last Admin: 08/13/18 19:11 Dose: 5 mls/min Documented by: [id number] Sodium Chloride (Nss 1000ml) 2,000 mls @ 999 mls/hr IV .Q2H1M ONE Stop: 08/13/18 18:20 Last Infusion: 08/13/18 18:00 Dose: 0 mls/hr Documented by: [id number] Admin: 08/13/18 16:20 Dose: 999 mls/hr Documented by: [id number] Thiamine HCl 100 mg/ Syringe 10 mls @ 2 mls/min IV NOW STA Stop: 08/13/18 16:24 Last Admin: 08/13/18 19:11 Dose: 2 mls/min Documented by: [id number] Levofloxacin/Dextrose (Levaquin/D5w) 750 mg in 150 mls @ 100 mls/hr IV Q24H YASMANI Stop: 08/27/18 16:29 Last Infusion: 08/13/18 19:37 Dose: 0 mls/hr Documented by: [id number] Admin: 08/13/18 17:59 Dose: 100 mls/hr Documented by: [id number] Vancomycin HCl 1,500 mg/ (Sodium Chloride) 530 mls @ 200 mls/hr IV NOW ONE Stop: 08/13/18 19:23 Last Infusion: 08/13/18 20:30 Dose: 0 mls/hr Documented by: [id number] Admin: 08/13/18 17:44 Dose: 200 mls/hr Documented by: [id number] Cefepime HCl 1,000 mg/ Syringe 11.3 mls @ 5.5 mls/min IV NOW STA Stop: 08/13/18 17:30 Last Admin: 08/13/18 18:10 Dose: 5.5 mls/min Documented by: [id number] Sodium Chloride (Nss 1000ml) 1,000 mls @ 999 mls/hr IV .Q1H1M ONE Stop: 08/13/18 18:48 Last Infusion: 08/13/18 18:51 Dose: 0 mls/hr Documented by: [id number] Admin: 08/13/18 18:01 Dose: 999 mls/hr Documented by: [id number] Piperacillin Sod/Tazobactam (Sod 4.5 gm/ Dextrose) 120 mls @ 200 mls/hr IV NOW ONE; Protocol Stop: 08/13/18 21:20 Last Infusion: 08/13/18 22:02 Dose: 0 mls/hr Documented by: [id number] Admin: 08/13/18 21:20 Dose: 200 mls/hr Documented by: [id number] Ioversol (Optiray 320 125ml) 117 ml IV ONCE PRN PRN Reason: Interaction Checking Stop: 08/17/18 17:08 Last Admin: 08/13/18 17:10 Dose: 1 ml Documented by: [id number] Multivitamins (Multivitamin Tab) 1 tab PO QAM YASMANI Stop: 09/12/18 16:29 Last Admin: 08/13/18 19:11 Dose: 1 tab Documented by: [id number] Medical Decision Making Differential Diagnosis Differential diagnosis: Etiologies such as sepsis, UTI, pneumonia, bacteremia, metabolic process, electrolyte abnormalities, cardiac sources, intracerebral event, intra-abdominal process, toxicological process, neurologic process, as well as others were entertained. Medical Records Attestation: I reviewed the patient's medical records. Home Medications Current Medication List: was personally reviewed by me Laboratory Data Attestation: I reviewed the patient's lab results. Result diagrams: 08/13/18 16:28 08/13/18 16:28 Lab Results 04/03/19 04/03/19 04/03/19 Range/Units 16:28 16:28 16:28 WBC 23.52 H (4.8-10.8) K/uL RBC 4.14 L (4.2-5.4) M/uL Hgb 13.5 (12.0-16.0) g/dL POC Hgb (12.0-16.0) g/dl Hct 38.9 (37-47) % POC Hct (37-47) % MCV 94.0 (80-100) fL MCH 32.6 (25-34) pg MCHC 34.7 (32-36) g/dL RDW Std Deviation 46.4 H (36.4-46.3) fL RDW Coeff of Don 13.7 (11.5-14.5) % Plt Count 154 (130-400) K/uL MPV 10.3 (7.4-10.4) fL Neutrophils % (Manual) 87.0 % Lymphocytes % (Manual) 5.2 % Monocytes % (Manual) 7.8 % Neutrophils # (Manual) 20.46 H (1.4-6.5) K/uL Total Absolute Neuts 20.46 H (1.4-6.5) K/uL Lymphocytes # (Manual) 1.22 (1.2-3.4) K/uL Total Abs Lymphocytes 1.22 (1.2-3.4) K/uL Monocytes # (Manual) 1.83 H (0.11-0.59) K/uL Hyposegmented Neuts 1+ Toxic Granulation 2+ Polychromasia 1+ PT Cancelled INR Cancelled APTT Cancelled PTT Ratio Cancelled VBG pH (7.36-7.41) VBG pCO2 (38-50) mmHg VBG pO2 mmHg VBG HCO3 mmol/L VBG O2 Saturation % VBG Base Excess mEq/L Barometric Pressure mm/Hg POC Sodium (135-144) mEq/L Sodium 132 L (136-145) mmol/L POC Potassium (3.3-5.0) mEq/L Potassium 4.1 (3.5-5.1) mmol/L POC Chloride (101-112) mEq/L Chloride 92 L (98-107) mmol/L Carbon Dioxide 26 (21-32) mmol/L POC Total CO2 (24-31) mEq/l Anion Gap 14.0 H (3-11) POC Anion Gap (16-25) mmol/L POC BUN (7-18) mg/dl BUN 24 H (7-18) mg/dl Creatinine 0.98 (0.6-1.2) mg/dl POC Creatinine (0.6-1.3) mg/dl Est Cr Clr Drug Dosing 33.3 ml/min Est GFR ( Amer) 73.2 Est GFR (Non-Af Amer) 63.1 BUN/Creatinine Ratio 24.2 H (10-20) Glucose 95 (70-99) mg/dl POC Glucose (other) (70-99) mg/dl POC Lactic Acid Amor (0.90-1.70) mmol/L Lactate (0.4-2.0) mmol/L Calcium 9.1 (8.5-10.1) mg/dl POC Ioniz Calcium Yann (1.12-1.32) mmol/l Total Bilirubin 0.8 (0.2-1) mg/dl AST 109 H (15-37) U/L ALT 95 H (12-78) U/L Alkaline Phosphatase 178 H (45-117) U/L Total Protein 7.4 (6.4-8.2) gm/dl Albumin 1.8 L (3.4-5.0) gm/dl Globulin 5.6 H (2.5-4.0) gm/dl Albumin/Globulin Ratio 0.3 L (0.9-2) Specimen Hemolysis Urine Color Urine Appearance (Clear) Urine pH (4.5-7.5) Ur Specific [place] (1.000-1.030) Urine Protein (Negative) Urine Glucose (UA) (Negative) Urine Ketones (Negative) Urine Blood (Negative) Urine Nitrite (Negative) Urine Bilirubin (Negative) Urine Urobilinogen (Negative) Ur Leukocyte Esterase (Negative) Nasal Screen MRSA (PCR) (Negative) Ethyl Alcohol mg/dL (0-3) mg/dl 08/13/18 08/13/18 08/13/18 Range/Units 16:28 16:30 16:34 WBC (4.8-10.8) K/uL RBC (4.2-5.4) M/uL Hgb (12.0-16.0) g/dL POC Hgb 15.0 (12.0-16.0) g/dl Hct (37-47) % POC Hct 44 (37-47) % MCV (80-100) fL MCH (25-34) pg MCHC (32-36) g/dL RDW Std Deviation (36.4-46.3) fL RDW Coeff of Don (11.5-14.5) % Plt Count (130-400) K/uL MPV (7.4-10.4) fL Neutrophils % (Manual) % Lymphocytes % (Manual) % Monocytes % (Manual) % Neutrophils # (Manual) (1.4-6.5) K/uL Total Absolute Neuts (1.4-6.5) K/uL Lymphocytes # (Manual) (1.2-3.4) K/uL Total Abs Lymphocytes (1.2-3.4) K/uL Monocytes # (Manual) (0.11-0.59) K/uL Hyposegmented Neuts Toxic Granulation Polychromasia PT INR APTT PTT Ratio VBG pH (7.36-7.41) VBG pCO2 (38-50) mmHg VBG pO2 mmHg VBG HCO3 mmol/L VBG O2 Saturation % VBG Base Excess mEq/L Barometric Pressure mm/Hg POC Sodium 129 L (135-144) mEq/L Sodium (136-145) mmol/L POC Potassium 5.8 H (3.3-5.0) mEq/L Potassium (3.5-5.1) mmol/L POC Chloride 92 L (101-112) mEq/L Chloride (98-107) mmol/L Carbon Dioxide (21-32) mmol/L POC Total CO2 28 (24-31) mEq/l Anion Gap (3-11) POC Anion Gap 16.0 (16-25) mmol/L POC BUN 34 H (7-18) mg/dl BUN (7-18) mg/dl Creatinine (0.6-1.2) mg/dl POC Creatinine 1.2 (0.6-1.3) mg/dl Est Cr Clr Drug Dosing ml/min Est GFR ( Amer) Est GFR (Non-Af Amer) BUN/Creatinine Ratio (10-20) Glucose (70-99) mg/dl POC Glucose (other) 104 H (70-99) mg/dl POC Lactic Acid Amor 3.50 H (0.90-1.70) mmol/L Lactate 3.7 H* (0.4-2.0) mmol/L Calcium (8.5-10.1) mg/dl POC Ioniz Calcium Yann 1.02 L (1.12-1.32) mmol/l Total Bilirubin (0.2-1) mg/dl AST (15-37) U/L ALT (12-78) U/L Alkaline Phosphatase (45-117) U/L Total Protein (6.4-8.2) gm/dl Albumin (3.4-5.0) gm/dl Globulin (2.5-4.0) gm/dl Albumin/Globulin Ratio (0.9-2) Specimen Hemolysis Urine Color Urine Appearance (Clear) Urine pH (4.5-7.5) Ur Specific [place] (1.000-1.030) Urine Protein (Negative) Urine Glucose (UA) (Negative) Urine Ketones (Negative) Urine Blood (Negative) Urine Nitrite (Negative) Urine Bilirubin (Negative) Urine Urobilinogen (Negative) Ur Leukocyte Esterase (Negative) Nasal Screen MRSA (PCR) (Negative) Ethyl Alcohol mg/dL (0-3) mg/dl 08/13/18 08/13/18 08/13/18 Range/Units 16:36 16:49 17:32 WBC (4.8-10.8) K/uL RBC (4.2-5.4) M/uL Hgb (12.0-16.0) g/dL POC Hgb (12.0-16.0) g/dl Hct (37-47) % POC Hct (37-47) % MCV (80-100) fL MCH (25-34) pg MCHC (32-36) g/dL RDW Std Deviation (36.4-46.3) fL RDW Coeff of Don (11.5-14.5) % Plt Count (130-400) K/uL MPV (7.4-10.4) fL Neutrophils % (Manual) % Lymphocytes % (Manual) % Monocytes % (Manual) % Neutrophils # (Manual) (1.4-6.5) K/uL Total Absolute Neuts (1.4-6.5) K/uL Lymphocytes # (Manual) (1.2-3.4) K/uL Total Abs Lymphocytes (1.2-3.4) K/uL Monocytes # (Manual) (0.11-0.59) K/uL Hyposegmented Neuts Toxic Granulation Polychromasia PT 11.8 INR 1.2 H APTT 29.2 PTT Ratio 1.1 VBG pH 7.32 L (7.36-7.41) VBG pCO2 52 H (38-50) mmHg VBG pO2 28 mmHg VBG HCO3 26 mmol/L VBG O2 Saturation < 60.0 % VBG Base Excess -0.5 mEq/L Barometric Pressure 734.4 mm/Hg POC Sodium (135-144) mEq/L Sodium (136-145) mmol/L POC Potassium (3.3-5.0) mEq/L Potassium (3.5-5.1) mmol/L POC Chloride (101-112) mEq/L Chloride (98-107) mmol/L Carbon Dioxide (21-32) mmol/L POC Total CO2 (24-31) mEq/l Anion Gap (3-11) POC Anion Gap (16-25) mmol/L POC BUN (7-18) mg/dl BUN (7-18) mg/dl Creatinine (0.6-1.2) mg/dl POC Creatinine (0.6-1.3) mg/dl Est Cr Clr Drug Dosing ml/min Est GFR ( Amer) Est GFR (Non-Af Amer) BUN/Creatinine Ratio (10-20) Glucose (70-99) mg/dl POC Glucose (other) (70-99) mg/dl POC Lactic Acid Amor (0.90-1.70) mmol/L Lactate (0.4-2.0) mmol/L Calcium (8.5-10.1) mg/dl POC Ioniz Calcium Yann (1.12-1.32) mmol/l Total Bilirubin (0.2-1) mg/dl AST (15-37) U/L ALT (12-78) U/L Alkaline Phosphatase (45-117) U/L Total Protein (6.4-8.2) gm/dl Albumin (3.4-5.0) gm/dl Globulin (2.5-4.0) gm/dl Albumin/Globulin Ratio (0.9-2) Specimen Hemolysis Urine Color Urine Appearance (Clear) Urine pH (4.5-7.5) Ur Specific [place] (1.000-1.030) Urine Protein (Negative) Urine Glucose (UA) (Negative) Urine Ketones (Negative) Urine Blood (Negative) Urine Nitrite (Negative) Urine Bilirubin (Negative) Urine Urobilinogen (Negative) Ur Leukocyte Esterase (Negative) Nasal Screen MRSA (PCR) (Negative) Ethyl Alcohol mg/dL 105.9 H (0-3) mg/dl 08/13/18 08/13/18 Range/Units 18:55 20:45 WBC (4.8-10.8) K/uL RBC (4.2-5.4) M/uL Hgb (12.0-16.0) g/dL POC Hgb (12.0-16.0) g/dl Hct (37-47) % POC Hct (37-47) % MCV (80-100) fL MCH (25-34) pg MCHC (32-36) g/dL RDW Std Deviation (36.4-46.3) fL RDW Coeff of Don (11.5-14.5) % Plt Count (130-400) K/uL MPV (7.4-10.4) fL Neutrophils % (Manual) % Lymphocytes % (Manual) % Monocytes % (Manual) % Neutrophils # (Manual) (1.4-6.5) K/uL Total Absolute Neuts (1.4-6.5) K/uL Lymphocytes # (Manual) (1.2-3.4) K/uL Total Abs Lymphocytes (1.2-3.4) K/uL Monocytes # (Manual) (0.11-0.59) K/uL Hyposegmented Neuts Toxic Granulation Polychromasia PT INR APTT PTT Ratio VBG pH (7.36-7.41) VBG pCO2 (38-50) mmHg VBG pO2 mmHg VBG HCO3 mmol/L VBG O2 Saturation % VBG Base Excess mEq/L Barometric Pressure mm/Hg POC Sodium (135-144) mEq/L Sodium (136-145) mmol/L POC Potassium (3.3-5.0) mEq/L Potassium (3.5-5.1) mmol/L POC Chloride (101-112) mEq/L Chloride (98-107) mmol/L Carbon Dioxide (21-32) mmol/L POC Total CO2 (24-31) mEq/l Anion Gap (3-11) POC Anion Gap (16-25) mmol/L POC BUN (7-18) mg/dl BUN (7-18) mg/dl Creatinine (0.6-1.2) mg/dl POC Creatinine (0.6-1.3) mg/dl Est Cr Clr Drug Dosing ml/min Est GFR ( Amer) Est GFR (Non-Af Amer) BUN/Creatinine Ratio (10-20) Glucose (70-99) mg/dl POC Glucose (other) (70-99) mg/dl POC Lactic Acid Amor (0.90-1.70) mmol/L Lactate (0.4-2.0) mmol/L Calcium (8.5-10.1) mg/dl POC Ioniz Calcium Yann (1.12-1.32) mmol/l Total Bilirubin (0.2-1) mg/dl AST (15-37) U/L ALT (12-78) U/L Alkaline Phosphatase (45-117) U/L Total Protein (6.4-8.2) gm/dl Albumin (3.4-5.0) gm/dl Globulin (2.5-4.0) gm/dl Albumin/Globulin Ratio (0.9-2) Specimen Hemolysis Urine Color Yellow Urine Appearance Clear (Clear) Urine pH 5.5 (4.5-7.5) Ur Specific [place] 1.023 (1.000-1.030) Urine Protein Negative (Negative) Urine Glucose (UA) Negative (Negative) Urine Ketones Negative (Negative) Urine Blood Negative (Negative) Urine Nitrite Negative (Negative) Urine Bilirubin Negative (Negative) Urine Urobilinogen Negative (Negative) Ur Leukocyte Esterase Negative (Negative) Nasal Screen MRSA (PCR) Negative (Negative) Ethyl Alcohol mg/dL (0-3) mg/dl Imaging Data Attestation: I personally reviewed and interpreted this imaging study as follows: Radiologist's Impression: ABDOMEN AND PELVIS CT WITH IV CONTRAST CT DOSE: HISTORY: sepsis TECHNIQUE: Multiaxial CT images of the abdomen and pelvis were performed following the use of intravenous contrast. A dose lowering technique was utilized adhering to the principles of ALARA. COMPARISON STUDY: Abdomen and pelvis CT 04/22/2014. FINDINGS: Dense consolidation within the lingula and left lower lobe with heterogeneous enhancement. There is a moderate hiatus hernia. Small patchy densities within the base the right lung base. A few small cavitary foci within the dense consolidation within the lingula. Therefore, this may represent a necrotizing pneumonia. No pneumoperitoneum. No pneumatosis. Bilateral femoral head avascular necrosis no evidence for femoral head collapse. No suspicious lytic or blastic osseous lesions. Mild hepatic steatosis. Mild nodular contour to the liver consistent with cirrhosis. The spleen, adrenal glands, pancreas, a nd kidneys appear unremarkable. Of note, there is mild motion artifact within the abdomen resulting in suboptimal evaluation. No retroperitoneal lymphadenopathy. Mild calcified plaque within the normal caliber abdominal aorta. No hydronephrosis. The bladder, uterus, and bilateral adnexa are unremark able. There is mild pelvic floor collapse. No bowel wall thickening or obstruction. Normal appendix. Extensive colonic diverticulosis. IMPRESSION: 1. No bowel wall thickening or obstruction. 2. Normal appendix. 3. Mild hepatic cirrhosis. 4. Dense heterogeneous consolidation within the left lung base containing a few small cavitary foci. This likely represents a necrotizing pneumonia. Follow-up is recommended to ensure resolution and to exclude the possibility of underlying mass. This is better appreciated on the same day chest CT. 5. Moderate hiatus hernia. Electronically signed by: Malvin Garcia M.D. 08/13/2018 5:[address] ANGIOGRAPHY OF THE CHEST, PULMONARY EMBOLUS PROTOCOL CLINICAL HISTORY: Hypotension. Tachycardia. COMPARISON STUDY: Chest radiograph May 01, 2016 and August 13, 2018. TECHNIQUE: Following IV administration of 117 mL of Optiray-320, helical axial images of the chest were obtained utilizing the pulmonary embolus protocol. Maximal intensity projections and sagittal and coronal reformats were viewed on an independent 3D workstation. IV contrast was administered without complication. Automated exposure control was utilized for the study. A dose lowering technique was utilized adhering to the principles of ALARA. CT DOSE: 460.76 mGy.cm FINDINGS: No pulmonary emboli are identified. There is no thoracic aortic dissection. The size of the heart is normal. There is a moderate sized hiatal hernia. There is dense consolidation within the lingula and the left lower lobe. Scattered additional airspace opacities throughout the lungs are noted. There is a trace left pleural effusion. There is no pneumothorax. Moderate emphysema is present. Secretions within the bilateral mainstem bronchi are noted. No suspic ious osseous lesions within the bony thorax are noted. The abdomen and pelvis will be reported separately. Minimally enlarged mediastinal and left hilar lymph nodes are noted. These measure up to 1 cm in short axis diameter. IMPRESSION: 1. No pulmonary emboli identified. 2. Extensive lingular and left lower lobe consolidation consistent with pneumonia/aspiration pneumonitis. Scattered airspace opacities throughout the lungs which are likely infectious as well. No central obstructing mass. S ecretions within the airways. 3. Moderate emphysema. 4. Mildly enlarged mediastinal and left hilar lymph nodes which are likely reactive. However a follow-up chest CT in 2 months to ensure resolution is recommended. 5. Moderate-sized hiatal hernia. Electronically signed by: Jeffry Milian M.D. 08/13/2018 5:44 PM XR chest 1V portable HISTORY: Sepsis COMPARISON: Chest 05/01/2016. FINDINGS: There is a new left lower lobe consolidation. Small focal conso lidation also seen within the left midlung zone. This likely represents a pneumonia. No pneumothorax. The heart is normal in size. The right lung is clear. IMPRESSION: There are new left mid to lower lung zone airspace opacities consistent with a pneumonia. This could be secondary to aspiration. Electronically signed by: Malvin Garcia M.D. 08/13/2018 4:47 PM ECG Data Attestation: I personally reviewed and interpreted this ECG as follows: Indication: SOB/dyspnea Rate (beats per minute): 100 Rhythm: sinus tachycardia Findings: + other (Normal axis) and + Q waves (septal); no PVC Blood Pressure Blood Pressure Findings: Low blood pressure Blood Pressure Disposition: further management by hospitalist BERNARDA Narrative Patient is a 58-year-old female who presents the ER for weakness and shortness of breath. Upon presentation blood pressures systolic are in the 60s-70s. Heart rate was in the 140s. Pulse ox was in the high 70s. Sepsis alert was called. IVs were established. Labs show leukocytosis of 23.5 thousand. No significant anemia. INR was unremarkable. VBG shows a pH of 7.3. CO2 slightly elevated at 52. Mild hyponatremia. Creatinine was unremarkable. Lactate was 3.7. Mild transaminitis. UA was unremarkable. Alcohol was positive. Chest x- ray showed a left lower lobe infiltrate. CT of the chest and abdomen confirms a necrotizing pneumonia. 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 Patient was updated bedside. Patient was given 3 L IV normal saline. She was given IV Levaquin, cefepime and vancomycin. He was updated and admitted on 6 L nasal cannula. Heart rate trended down from the 140s to the high 90s. Systolic blood pressures increased from the 60s to the low 100s. Impression & Plan Sepsis, Pneumonia, Hypoxia Critical Care Time I have personally spent greater than 75 minutes of critical care time in the direct management of this patient. This includes bedside care, interpretation of diagnostic studies, and testing, discussion with consultants, patient, and family members, and other required patient management activities. This 75 minutes is in excess of all separately billable procedures. Critical Care Time: Yes Total Critical Care Time: 75 Discharge Plan Visit Data *Final* Discharge Date/Time: 08/13/18 20:12 Chief Complaint: Referred by Doctor Stated Complaint: LACK OF OXYGEN-POSSIBLE PE ED Provider: Robby Flowers Discharge Problem: Sepsis, Pneumonia, Hypoxia Patient Disposition: Admitted As Inpatient Discharge Instructions Interventions: ED Discharge Assessment Last Done: 08/13/18 20:12 Discharge Problem: Sepsis Qualifiers: Sepsis type: sepsis due to unspecified organism Qualified Code(s): A41.9 - Sepsis, unspecified organism Pneumonia Qualifiers: Pneumonia type: due to unspecified organism Laterality: unspecified laterality Lung location: unspecified part of lung Qualified Code(s): J18.9 - Pneumonia, unspecified organism The scribe's documentation has been prepared under my direction and personally reviewed by me in its entirety. I confirm that the note above accurately reflects all work, treatment, procedures, and medical decision making performed by me.
[2018-08-14] MEDS ORDERED: PIPERACILLIN/TAZOBACTAM 4.5 GM in DEXTROSE 5% 100 ML IV SCH (02:00)
[2018-08-14] MEDS ORDERED: PNEUMOCOCCAL ADMINISTRATION CHARGE ONE (02:15)
[2018-08-14] MEDS ORDERED: PNEUMOCOCCAL POLYSACCHARIDES 25 MCG/0.5 ML VIAL/SYR IM ONE (02:15)
[2018-08-14] MEDS: PIPERACILLIN/TAZOBACTAM 3.375 GM in DEXTROSE 5% 100 ML IV SCH ×3 (02:55→17:59)
[2018-08-14 06:41] LABS: Hematocrit (blood only) 32.5 % (37-47); Hemoglobin 10.8 g/dL (12.0-16.0); Mean Corpuscular Hgb Conc 33.2 g/dL (32-36); Mean Corpuscular Volume 95.6 fL (80-100); Mean Platelet Volume 9.4 fL (7.4-10.4); Nucleated RBC # (auto) 0.03 K/uL (0-0); Nucleated RBC % (auto) 0.2 %; Platelet Count 110 K/uL (130-400); RDW Coefficient of Variation 13.9 % (11.5-14.5); RDW Standard Deviation 48.5 fL (36.4-46.3)
[2018-08-14 07:05] LABS: Albumin Level 1.4 gm/dl (3.4-5.0); BUN Creatinine Ratio 31.1 (10-20); Calcium 7.5 mg/dl (8.5-10.1); Creatinine Clr Calc Pharmacy 83.4 ml/min; Est GFR (African American) 115.6; Est GFR (Non-African American) 99.8; Magnesium 1.7 mg/dl (1.8-2.4)
[2018-08-14 07:09] LABS: Albumin Globulin Ratio 0.3 (0.9-2); Bilirubin,Total 0.5 mg/dl (0.2-1); Globulin 4.1 gm/dl (2.5-4.0); Total Protein 5.5 gm/dl (6.4-8.2)
[2018-08-14] MEDS: ALBUT/IPRATROP 3MG/0.5MG NEB 3 ML VIAL NEB SCH ×4 (07:13→19:11)
[2018-08-14 07:25] LABS: Basophils # (auto) 0.02 K/uL (0-0.2); Basophils % (auto) 0.1 %; Immature Granulocytes # (auto) 0.23 K/uL (0.00-0.02); Immature Granulocytes % (auto) 1.4 %; Lymphocytes % (auto) 4.4 %; Monocytes # (auto) 0.92 K/uL (0.11-0.59); Monocytes % (auto) 5.8 %; Neutrophils # (auto) 14.03 K/uL (1.4-6.5); Neutrophils % (auto) 88.3 %; Rouleaux 1+
[2018-08-14] MEDS: POTASSIUM CHLORIDE 40 MEQ in SODIUM CHLORIDE 0.9% 1000ML 1,000 ML IV SCH ×2 (08:17→20:37)
[2018-08-14] MEDS: BUDESONIDE/FORMOTEROL FUMARATE 80/4.5 60 PUFFS/INHALER INH SCH ×2 (08:19→20:23)
[2018-08-14] MEDS: predniSONE 50 MG TAB PO SCH (08:24)
[2018-08-14] MEDS: THIAMINE HCL 100 MG TAB PO SCH (08:24)
[2018-08-14] MEDS ORDERED: Nursing to Pharmacy Communication ONE (08:42)
[2018-08-14] MEDS ORDERED: DIVALPROEX EXTENDED RELEASE 500 MG TAB PO SCH (09:00)
[2018-08-14] MEDS ORDERED: VANCOMYCIN HCL 1,000 MG in SODIUM CHLORIDE 0.9% 250 ML IV SCH (10:00)
--- NOTE | 2018-08-14 10:58 | Pulmonology Progress Note ---
Date of Service August 14, 2018 Assessment & Plan (1) Pneumonia: Neuro- awake alert. watch for signs of alcohol withdrawal. has mild tremor CV- hypotension responded to fluids. continue fluids. Pulmonary- acute hypoxic respiratory failure due to pneumonia. continue to titrate o2 for sat >90. if desatting would try high flow NC. COPD on albuterol, symbicort, prednisone ID- sepsis with evidence of end organ dysfunction due to pneumonia and gram + bacteremia await speciation and sensitivities. continue abx. ok to stop azithromycin Renal- cr ok. hyponatremia improved with fluids. hypokalemia replace GI- diet as tolerated. LFTS increased likely related to alcohol abuse Heme- leukocytosis improved. SCD proph Endocrine- blood sugar controlled Subjective improving shortness of breath Physical Exam Vital Signs (Past 24 Hours): Last Vital Signs Temp 36.5 C 08/14/18 06:51 Pulse 75 08/14/18 07:13 Resp 18 08/14/18 07:13 BP 103/65 08/14/18 06:51 Pulse Ox 96 08/14/18 08:57 Physical Exam: Constitutional: Comfortable NAD on NC HEENT: normocephalic atraumatic. dry mucus membranes. no cervical lymphadenopathy CV: RRR nl s1,s2 no murmurs rubs or gallops Lungs: slight crackles bilaterally improved. no accessory muscle use Abd: soft nontender nondistended. normal bowel sounds Ext: no edema. no cyanosis, no clubbing Skin: warm dry Neuro: alert and oriented. moving all extremities. mild tremor Psych: normal mood and affect
--- NOTE | 2018-08-14 12:42 | Hospitalist Progress Note ---
Date of Service August 14, 2018 Assessment & Plan (1) Left lower lobe pneumonia: Necrotizing pneumonia seen on CTA chest on 08/13. Concerning for aspiration; possibly due to intoxication. - continue Zosyn, stop Vanco due to MRSA swab negative, stop Zithromax - blood cultures growing gram positive cocci, repeat tomorrow - Sputum cx shows no growth at this time - DuoNebs standing and PRN - Prednisone for COPD breathing much improved, down to 3L nasal canula WBC down to 15k keep on tele (2) COPD (chronic obstructive pulmonary disease): Wheezing and tightness on exam. Pneumonia likely causing a COPD exacerbation as well. - Treatment as above - Continue home Symbicort continue Prednisone, consider taper on discharge (3) Severe sepsis: Hypotension and elevated lactate with known source of infection. SIRS 3/4 and qSOFA 2/3 at time of admission BP responded well to IV fluid boluses, continue NSS at 80cc/hr, still with poor oral intake follow up on final results of blood cultures, preliminary growth shows gram positive cocci (4) Alcoholic hepatitis: AST/ALT were 109/95 on admission. Maddrey's DF was only 4, making steroids unneccesary. Has had multiple alcoholic hepatitis episodes during prior admission. CT a/p on 08/13 indicated possible mild cirrhosis. - AST and ALT normal today continue to follow (5) ETOH abuse: Per , drinks 1.75L/wk of vodka. Prior detox episodes in our hospital. No seizures or DTs per patient and . EtOH level was 106 on admission. - TAVO protocol - Vitamin repletion - Continue divalproex mild hand tremor today, feeling okay (6) Hypokalemia: low at 3.0, added 40mEq of K to IV fluids, repeat tomorrow (7) DVT prophylaxis: SCDs - Low risk per calculator Subjective patient feeling better this morning after fluids and antibiotics sleeping well appetite is not great but a little better having some mild hand tremors, no signs of significant withdrawal says she drinks 4-5 glasses of Vodka every night says she needs to be in [place] by Saturday morning for her disability hearing reviewed labs, WBC down to 15k, Hb 10 K low at 3.0, Cr stable at 0.6 blood cultures growing gram positive cocci, both sets discussed with Dr. Cool, appreciate his input Review of Systems All systems reviewed & are unremarkable except as noted in HPI & below Constitutional: + chills, + fatigue and + weakness Respiratory: + cough, + pain with cough and + sputum production Cardiovascular: no chest pain Physical Exam Vital Signs (Past 24 Hours): Last Vital Signs Temp 37.1 C 08/14/18 11:48 Pulse 83 08/14/18 11:48 Resp 24 08/14/18 11:48 BP 99/61 L 08/14/18 11:48 Pulse Ox 96 08/14/18 11:48 Constitutional: WD/WN, vitals as above Eyes: PERRL, conjunctivae normal, anicteric sclerae ENMT: external ear and nose normal, oropharynx normal Neck: trachea midline, no thyromegaly Respiratory: normal respiratory effort and + cough; no respiratory distress Auscultation: + crackles (left base) and + rhonchi (left side); no wheezes Cardiovascular: RRR, no murmur, no edema Gastrointestinal (Abdomen): normal bowel sounds, soft, nontender, no hepatosplenomegaly Musculoskeletal: no cyanosis or clubbing, extremities motor strength 5/5 Skin: no rashes, warm and dry Neurologic: patellar DTR's 2+ bilat, sensation intact and PERRL, EOMI, accommodation nl, no face palsy, no dysarthria Motor/Sensory: + tremor (hands bilaterally, mild) Psychiatric: A+Ox3, euthymic affect Lymphatic: no cervical or axillary lymphadenopathy Results & Data Laboratory Results Microbiology 08/14/18 08:35 Sputum, Expectorated Gram Stain - Final 08/13/18 16:34 Blood Blood Culture - Preliminary Gram positive cocci 08/13/18 16:28 Blood Blood Culture - Preliminary Gram positive cocci Laboratory Results - last 24 hr 08/13/18 08/13/18 08/13/18 16:28 16:28 16:28 WBC 23.52 H RBC 4.14 L Hgb 13.5 POC Hgb Hct 38.9 POC Hct MCV 94.0 MCH 32.6 MCHC 34.7 RDW Std Deviation 46.4 H RDW Coeff of Don 13.7 Plt Count 154 MPV 10.3 Immature Gran % (Auto) Neut % (Auto) Lymph % (Auto) [place] % (Auto) Eos % (Auto) Baso % (Auto) Immature Gran # (Auto) Neut # (Auto) Lymph # (Auto) [place] # (Auto) Eos # (Auto) Baso # (Auto) Absolute Nucleated RBC Nucleated RBC % (auto) Neutrophils % (Manual) 87.0 Lymphocytes % (Manual) 5.2 Monocytes % (Manual) 7.8 Neutrophils # (Manual) 20.46 H Total Absolute Neuts 20.46 H Lymphocytes # (Manual) 1.22 Total Abs Lymphocytes 1.22 Monocytes # (Manual) 1.83 H Hyposegmented Neuts 1+ Toxic Granulation 2+ Polychromasia 1+ Rouleaux PT Cancelled INR Cancelled APTT Cancelled PTT Ratio Cancelled VBG pH VBG pCO2 VBG pO2 VBG HCO3 VBG O2 Saturation VBG Base Excess Barometric Pressure POC Sodium Sodium 132 L POC Potassium Potassium 4.1 POC Chloride Chloride 92 L Carbon Dioxide 26 POC Total CO2 Anion Gap 14.0 H POC Anion Gap POC BUN BUN 24 H Creatinine 0.98 POC Creatinine Est Cr Clr Drug Dosing 33.3 Est GFR ( Amer) 73.2 Est GFR (Non-Af Amer) 63.1 BUN/Creatinine Ratio 24.2 H Glucose 95 POC Glucose (other) POC Lactic Acid Amor Lactate Calcium 9.1 POC Ioniz Calcium Yann Magnesium Total Bilirubin 0.8 AST 109 H ALT 95 H Alkaline Phosphatase 178 H Total Protein 7.4 Albumin 1.8 L Globulin 5.6 H Albumin/Globulin Ratio 0.3 L Folate Specimen Hemolysis Urine Color Urine Appearance Urine pH Ur Specific [place] Urine Protein Urine Glucose (UA) Urine Ketones Urine Blood Urine Nitrite Urine Bilirubin Urine Urobilinogen Ur Leukocyte Esterase Nasal Screen MRSA (PCR) Ethyl Alcohol mg/dL Hepatitis C Ab Screen 08/13/18 08/13/18 08/13/18 16:28 16:30 16:34 WBC RBC Hgb POC Hgb 15.0 Hct POC Hct 44 MCV MCH MCHC RDW Std Deviation RDW Coeff of Don Plt Count MPV Immature Gran % (Auto) Neut % (Auto) Lymph % (Auto) [place] % (Auto) Eos % (Auto) Baso % (Auto) Immature Gran # (Auto) Neut # (Auto) Lymph # (Auto) [place] # (Auto) Eos # (Auto) Baso # (Auto) Absolute Nucleated RBC Nucleated RBC % (auto) Neutrophils % (Manual) Lymphocytes % (Manual) Monocytes % (Manual) Neutrophils # (Manual) Total Absolute Neuts Lymphocytes # (Manual) Total Abs Lymphocytes Monocytes # (Manual) Hyposegmented Neuts Toxic Granulation Polychromasia Rouleaux PT INR APTT PTT Ratio VBG pH VBG pCO2 VBG pO2 VBG HCO3 VBG O2 Saturation VBG Base Excess Barometric Pressure POC Sodium 129 L Sodium POC Potassium 5.8 H Potassium POC Chloride 92 L Chloride Carbon Dioxide POC Total CO2 28 Anion Gap POC Anion Gap 16.0 POC BUN 34 H BUN Creatinine POC Creatinine 1.2 Est Cr Clr Drug Dosing Est GFR ( Amer) Est GFR (Non-Af Amer) BUN/Creatinine Ratio Glucose POC Glucose (other) 104 H POC Lactic Acid Amor 3.50 H Lactate 3.7 H* Calcium POC Ioniz Calcium Yann 1.02 L Magnesium Total Bilirubin AST ALT Alkaline Phosphatase Total Protein Albumin Globulin Albumin/Globulin Ratio Folate Specimen Hemolysis Urine Color Urine Appearance Urine pH Ur Specific [place] Urine Protein Urine Glucose (UA) Urine Ketones Urine Blood Urine Nitrite Urine Bilirubin Urine Urobilinogen Ur Leukocyte Esterase Nasal Screen MRSA (PCR) Ethyl Alcohol mg/dL Hepatitis C Ab Screen 08/13/18 08/13/18 08/13/18 16:36 16:49 17:32 WBC RBC Hgb POC Hgb Hct POC Hct MCV MCH MCHC RDW Std Deviation RDW Coeff of Don Plt Count MPV Immature Gran % (Auto) Neut % (Auto) Lymph % (Auto) [place] % (Auto) Eos % (Auto) Baso % (Auto) Immature Gran # (Auto) Neut # (Auto) Lymph # (Auto) [place] # (Auto) Eos # (Auto) Baso # (Auto) Absolute Nucleated RBC Nucleated RBC % (auto) Neutrophils % (Manual) Lymphocytes % (Manual) Monocytes % (Manual) Neutrophils # (Manual) Total Absolute Neuts Lymphocytes # (Manual) Total Abs Lymphocytes Monocytes # (Manual) Hyposegmented Neuts Toxic Granulation Polychromasia Rouleaux PT 11.8 INR 1.2 H APTT 29.2 PTT Ratio 1.1 VBG pH 7.32 L VBG pCO2 52 H VBG pO2 28 VBG HCO3 26 VBG O2 Saturation < 60.0 VBG Base Excess -0.5 Barometric Pressure 734.4 POC Sodium Sodium POC Potassium Potassium POC Chloride Chloride Carbon Dioxide POC Total CO2 Anion Gap POC Anion Gap POC BUN BUN Creatinine POC Creatinine Est Cr Clr Drug Dosing Est GFR ( Amer) Est GFR (Non-Af Amer) BUN/Creatinine Ratio Glucose POC Glucose (other) POC Lactic Acid Amor Lactate Calcium POC Ioniz Calcium Yann Magnesium Total Bilirubin AST ALT Alkaline Phosphatase Total Protein Albumin Globulin Albumin/Globulin Ratio Folate Specimen Hemolysis Urine Color Urine Appearance Urine pH Ur Specific [place] Urine Protein Urine Glucose (UA) Urine Ketones Urine Blood Urine Nitrite Urine Bilirubin Urine Urobilinogen Ur Leukocyte Esterase Nasal Screen MRSA (PCR) Ethyl Alcohol mg/dL 105.9 H Hepatitis C Ab Screen 08/13/18 08/13/18 08/14/18 18:55 20:45 05:47 WBC 15.90 H RBC 3.40 L Hgb 10.8 L POC Hgb Hct 32.5 L POC Hct MCV 95.6 MCH 31.8 MCHC 33.2 RDW Std Deviation 48.5 H RDW Coeff of Don 13.9 Plt Count 110 L MPV 9.4 Immature Gran % (Auto) 1.4 Neut % (Auto) 88.3 Lymph % (Auto) 4.4 [place] % (Auto) 5.8 Eos % (Auto) 0.0 Baso % (Auto) 0.1 Immature Gran # (Auto) 0.23 H Neut # (Auto) 14.03 H Lymph # (Auto) 0.70 L [place] # (Auto) 0.92 H Eos # (Auto) 0.00 Baso # (Auto) 0.02 Absolute Nucleated RBC 0.03 H Nucleated RBC % (auto) 0.2 Neutrophils % (Manual) Lymphocytes % (Manual) Monocytes % (Manual) Neutrophils # (Manual) Total Absolute Neuts Lymphocytes # (Manual) Total Abs Lymphocytes Monocytes # (Manual) Hyposegmented Neuts Toxic Granulation Polychromasia Rouleaux 1+ PT INR APTT PTT Ratio VBG pH VBG pCO2 VBG pO2 VBG HCO3 VBG O2 Saturation VBG Base Excess Barometric Pressure POC Sodium Sodium POC Potassium Potassium POC Chloride Chloride Carbon Dioxide POC Total CO2 Anion Gap POC Anion Gap POC BUN BUN Creatinine POC Creatinine Est Cr Clr Drug Dosing Est GFR ( Amer) Est GFR (Non-Af Amer) BUN/Creatinine Ratio Glucose POC Glucose (other) POC Lactic Acid Amor Lactate Calcium POC Ioniz Calcium Yann Magnesium Total Bilirubin AST ALT Alkaline Phosphatase Total Protein Albumin Globulin Albumin/Globulin Ratio Folate Specimen Hemolysis Urine Color Yellow Urine Appearance Clear Urine pH 5.5 Ur Specific [place] 1.023 Urine Protein Negative Urine Glucose (UA) Negative Urine Ketones Negative Urine Blood Negative Urine Nitrite Negative Urine Bilirubin Negative Urine Urobilinogen Negative Ur Leukocyte Esterase Negative Nasal Screen MRSA (PCR) Negative Ethyl Alcohol mg/dL Hepatitis C Ab Screen 08/14/18 08/14/18 08/14/18 05:47 05:47 05:47 WBC RBC Hgb POC Hgb Hct POC Hct MCV MCH MCHC RDW Std Deviation RDW Coeff of Don Plt Count MPV Immature Gran % (Auto) Neut % (Auto) Lymph % (Auto) [place] % (Auto) Eos % (Auto) Baso % (Auto) Immature Gran # (Auto) Neut # (Auto) Lymph # (Auto) [place] # (Auto) Eos # (Auto) Baso # (Auto) Absolute Nucleated RBC Nucleated RBC % (auto) Neutrophils % (Manual) Lymphocytes % (Manual) Monocytes % (Manual) Neutrophils # (Manual) Total Absolute Neuts Lymphocytes # (Manual) Total Abs Lymphocytes Monocytes # (Manual) Hyposegmented Neuts Toxic Granulation Polychromasia Rouleaux PT INR APTT PTT Ratio VBG pH VBG pCO2 VBG pO2 VBG HCO3 VBG O2 Saturation VBG Base Excess Barometric Pressure POC Sodium Sodium 141 D POC Potassium Potassium 3.0 L D POC Chloride Chloride 107 Carbon Dioxide 27 POC Total CO2 Anion Gap 7.0 POC Anion Gap POC BUN BUN 19 H Creatinine 0.60 D POC Creatinine Est Cr Clr Drug Dosing 83.4 Est GFR ( Amer) 115.6 Est GFR (Non-Af Amer) 99.8 BUN/Creatinine Ratio 31.1 H Glucose 144 H POC Glucose (other) POC Lactic Acid Amor Lactate Calcium 7.5 L D POC Ioniz Calcium Yann Magnesium 1.7 L Total Bilirubin 0.5 AST 57 H ALT 57 Alkaline Phosphatase 125 H Total Protein 5.5 L D Albumin 1.4 L Globulin 4.1 H Albumin/Globulin Ratio 0.3 L Folate 4.73 L Specimen Hemolysis Urine Color Urine Appearance Urine pH Ur Specific [place] Urine Protein Urine Glucose (UA) Urine Ketones Urine Blood Urine Nitrite Urine Bilirubin Urine Urobilinogen Ur Leukocyte Esterase Nasal Screen MRSA (PCR) Ethyl Alcohol mg/dL Hepatitis C Ab Screen Neg Medications Administered Current Inpatient Medications Acetaminophen (Tylenol) 500 mg PO Q4H PRN PRN Reason: pain/fever Stop: 09/12/18 20:11 Albuterol (Duoneb) 3 ml NEB QIDR YASMANI Stop: 09/12/18 20:11 Last Admin: 08/14/18 11:17 Dose: 3 ml Documented by: Budesonide/Formoterol Fumarate (Symbicort 80mcg/4.5mcg) 2 puffs INH BID [facility] Stop: 09/12/18 20:59 Last Admin: 08/14/18 08:19 Dose: 2 puffs Documented by: Divalproex Sodium (Depakote Extended Release) 500 mg PO HS [facility] Stop: 09/13/18 20:59 Escitalopram Oxalate (Lexapro) 20 mg PO HS [facility] Stop: 09/13/18 20:59 Azithromycin 500 mg/ Dextrose 255 mls @ 125 mls/hr IV DAILY@2100 [facility] Stop: 08/20/18 20:59 Last Infusion: 08/13/18 23:23 Dose: Infused Documented by: Lorazepam (Ativan) 1 mg in 2 mls @ 2 mls/min IV ONE PRN; Protocol PRN Reason: EtoH Withdrawal AWSS 6-10 Stop: 09/12/18 20:11 Piperacillin Sod/Tazobactam (Sod 3.375 gm/ Dextrose) 115 mls @ 28.75 mls/hr IV Q8H [facility]; Protocol Stop: 08/21/18 01:59 Last Admin: 08/14/18 10:00 Dose: 28.8 mls/hr Documented by: Potassium Chloride 40 meq/ (Sodium Chloride) 1,020 mls @ 80 mls/hr IV .[id number] [facility] Stop: 09/13/18 07:59 Last Admin: 08/14/18 08:17 Dose: 80 mls/hr Documented by: Lorazepam (Ativan) 1 mg PO ONE PRN; Protocol PRN Reason: EtoH Withdrawal AWSS 6-10 Miscellaneous Information (Consult) 1 ea N/A UD PRN PRN Reason: Consult Stop: 09/12/18 20:11 Ondansetron HCl (Zofran) 4 mg IV Q4H PRN PRN Reason: Nausea Stop: 09/12/18 20:11 Prednisone (Prednisone) 50 mg PO DAILY [facility] Stop: 09/13/18 08:59 Last Admin: 08/14/18 08:24 Dose: 50 mg Documented by: Thiamine HCl (Vitamin B-1) 100 mg PO QAM [facility] Stop: 09/12/18 20:44 Last Admin: 08/14/18 08:24 Dose: 100 mg Documented by:
[2018-08-14] MEDS: ESCITALOPRAM OXALATE 20 MG TAB PO SCH (20:24)
[2018-08-14] MEDS: DIVALPROEX EXTENDED RELEASE 500 MG TAB PO SCH (20:26)
[2018-08-14] MEDS: AZITHROMYCIN 500 MG in DEXTROSE 5% 250 ML IV SCH (20:37)
[2018-08-15] MEDS: PIPERACILLIN/TAZOBACTAM 3.375 GM in DEXTROSE 5% 100 ML IV SCH ×2 (03:03→10:22)
[2018-08-15] MEDS: ALBUT/IPRATROP 3MG/0.5MG NEB 3 ML VIAL NEB SCH ×4 (06:56→19:04)
[2018-08-15] MEDS: THIAMINE HCL 100 MG TAB PO SCH (08:12)
[2018-08-15] MEDS: BUDESONIDE/FORMOTEROL FUMARATE 80/4.5 60 PUFFS/INHALER INH SCH ×2 (08:12→20:25)
[2018-08-15] MEDS: predniSONE 50 MG TAB PO SCH (08:12)
[2018-08-15 08:53] LABS: Basophils # (auto) 0.03 K/uL (0-0.2); Basophils % (auto) 0.2 %; Hematocrit (blood only) 32.3 % (37-47); Hemoglobin 10.7 g/dL (12.0-16.0); Immature Granulocytes # (auto) 0.34 K/uL (0.00-0.02); Immature Granulocytes % (auto) 2.5 %; Lymphocytes # (auto) 0.77 K/uL (1.2-3.4); Lymphocytes % (auto) 5.7 %; Mean Corpuscular Hgb Conc 33.1 g/dL (32-36); Mean Corpuscular Volume 95.8 fL (80-100); Mean Platelet Volume 9.9 fL (7.4-10.4); Monocytes # (auto) 0.97 K/uL (0.11-0.59); Monocytes % (auto) 7.2 %; Neutrophils # (auto) 11.43 K/uL (1.4-6.5); Neutrophils % (auto) 84.4 %; Nucleated RBC # (auto) 0.07 K/uL (0-0); Nucleated RBC % (auto) 0.5 %; Platelet Count 126 K/uL (130-400); RDW Coefficient of Variation 14.4 % (11.5-14.5); RDW Standard Deviation 50.1 fL (36.4-46.3); Red Blood Count 3.37 M/uL (4.2-5.4); White Blood Count 13.54 K/uL (4.8-10.8)
[2018-08-15 09:31] LABS: BUN Creatinine Ratio 39.4 (10-20); Calcium 8.5 mg/dl (8.5-10.1); Creatinine Clr Calc Pharmacy 94.5 ml/min; Est GFR (African American) 119.7; Est GFR (Non-African American) 103.3; Potassium 3.5 mmol/L (3.5-5.1)
[2018-08-15] MEDS: POTASSIUM CHLORIDE 40 MEQ in SODIUM CHLORIDE 0.9% 1000ML 1,000 ML IV SCH ×2 (10:22→20:24)
[2018-08-15] MEDS ORDERED: GABAPENTIN 1200MG ALCOHOL WITHDRAWAL LOAD PO STA (11:30)
--- NOTE | 2018-08-15 11:36 | Hospitalist Progress Note ---
Date of Service August 15, 2018 Assessment & Plan (1) Left lower lobe pneumonia: Necrotizing pneumonia seen on CTA chest on 08/13. Concerning for aspiration; possibly due to intoxication. - treated with Zosyn, stop Vanco due to MRSA swab negative, stop Zithromax change to Rocephin 2gm IV daily with blood cultures positive for Strep pneumo - blood cultures growing Strep pneumo consistent with necrotizing pneumonia repeat blood cultures drawn on 08/15/18 - Sputum cx shows no growth at this time - DuoNebs standing and PRN - Prednisone for COPD breathing much improved, down to 1L nasal canula WBC down to 13k keep on tele for today, consider transfer tomorrow (2) COPD (chronic obstructive pulmonary disease): less wheezing on exam continue Prednisone and nebulizers (3) Severe sepsis: Hypotension and elevated lactate with known source of infection. SIRS 3/4 and qSOFA 2/3 at time of admission BP responded well to IV fluid boluses, continue NSS at 80cc/hr, still with poor oral intake likely stop fluids tomorrow blood culture: Strep pneumo, repeat cultures drawn on 08/15 (4) Alcoholic hepatitis: AST and ALT now normal, no signs of hepatitie (5) ETOH abuse: Per , drinks 1.75L/wk of vodka. Prior detox episodes in our hospital. No seizures or DTs per patient and . EtOH level was 106 on admission. - TAVO protocol, start Gabapentin today since she has more symptoms - Vitamin repletion - Continue divalproex Ativan PRN (6) Hypokalemia: K is 3.5 today (7) DVT prophylaxis: SCDs - Low risk per calculator Subjective patient feeling okay, less short of breath, still coughing, has left sided chest pain with cough appetite is a little improved WBC down to 13k, BMP is stable patient with increased tremors, some sweats, increased signs of withdrawal d/w RN, will start Gabapentin now discussed with patient's Social Security energy attorney to get her hearing on Saturday pushed back blood cultures from admission now growing Strep pneumo, awaiting sensitivities Review of Systems All systems reviewed & are unremarkable except as noted in HPI & below Constitutional: + fatigue and + weakness Respiratory: + cough, + dyspnea and + dyspnea on exertion Physical Exam Vital Signs (Past 24 Hours): Last Vital Signs Temp 36.6 C 08/15/18 10:55 Pulse 82 08/15/18 10:55 Resp 24 08/15/18 10:55 BP 129/77 08/15/18 10:55 Pulse Ox 90 08/15/18 10:55 Constitutional: WD/WN, vitals as above Eyes: PERRL, conjunctivae normal, anicteric sclerae ENMT: external ear and nose normal, oropharynx normal Neck: trachea midline, no thyromegaly Respiratory: normal respiratory effort and + cough; no respiratory distress Auscultation: + crackles (left base) and + rhonchi (left side); no wheezes Cardiovascular: RRR, no murmur, no edema Gastrointestinal (Abdomen): normal bowel sounds, soft, nontender, no hepatosplenomegaly Musculoskeletal: no cyanosis or clubbing, extremities motor strength 5/5 Skin: no rashes, warm and dry Neurologic: patellar DTR's 2+ bilat, sensation intact and PERRL, EOMI, accommodation nl, no face palsy, no dysarthria Motor/Sensory: + tremor (hands bilaterally, mild) Psychiatric: A+Ox3, euthymic affect Lymphatic: no cervical or axillary lymphadenopathy Results & Data Laboratory Results Laboratory Results - last 24 hr 08/15/18 08/15/18 08:28 08:28 WBC 13.54 H RBC 3.37 L Hgb 10.7 L Hct 32.3 L MCV 95.8 MCH 31.8 MCHC 33.1 RDW Std Deviation 50.1 H RDW Coeff of Don 14.4 Plt Count 126 L MPV 9.9 Immature Gran % (Auto) 2.5 Neut % (Auto) 84.4 Lymph % (Auto) 5.7 [place] % (Auto) 7.2 Eos % (Auto) 0.0 Baso % (Auto) 0.2 Immature Gran # (Auto) 0.34 H Neut # (Auto) 11.43 H Lymph # (Auto) 0.77 L [place] # (Auto) 0.97 H Eos # (Auto) 0.00 Baso # (Auto) 0.03 Absolute Nucleated RBC 0.07 H Nucleated RBC % (auto) 0.5 Sodium 144 Potassium 3.5 D Chloride 112 H Carbon Dioxide 27 Anion Gap 5.0 BUN 21 H Creatinine 0.54 L Est Cr Clr Drug Dosing 94.5 Est GFR ( Amer) 119.7 Est GFR (Non-Af Amer) 103.3 BUN/Creatinine Ratio 39.4 H Glucose 110 H Calcium 8.5 Microbiology 08/13/18 16:34 Blood Blood Culture - Preliminary Streptococcus pneumoniae 08/13/18 16:28 Blood Blood Culture - Preliminary Streptococcus pneumoniae 08/14/18 08:35 Sputum, Expectorated Gram Stain - Final Medications Administered Current Inpatient Medications Acetaminophen (Tylenol) 500 mg PO Q4H PRN PRN Reason: pain/fever Stop: 09/12/18 20:11 Albuterol (Duoneb) 3 ml NEB QIDR YASMANI Stop: 09/12/18 20:11 Last Admin: 08/15/18 06:56 Dose: 3 ml Documented by: Budesonide/Formoterol Fumarate (Symbicort 80mcg/4.5mcg) 2 puffs INH BID [facility] Stop: 09/12/18 20:59 Last Admin: 08/15/18 08:12 Dose: 2 puffs Documented by: Divalproex Sodium (Depakote Extended Release) 500 mg PO [facility] Stop: 09/13/18 20:59 Last Admin: 08/14/18 20:26 Dose: 500 mg Documented by: Escitalopram Oxalate (Lexapro) 20 mg PO [facility] Stop: 09/13/18 20:59 Last Admin: 08/14/18 20:24 Dose: 20 mg Documented by: Gabapentin (Gabapentin 1200mg Alcohol Withdrawal Load) 1 ea PO NOW STA; Protocol Stop: 08/15/18 11:31 Gabapentin (Neurontin) 1,200 mg PO TODAY@ [facility] Stop: 08/15/18 11:31 Gabapentin (Neurontin) 600 mg PO Q12H [facility] Stop: 08/17/18 23:32 Gabapentin (Neurontin) 600 mg PO Q24H [facility] Stop: 08/18/18 23:32 Gabapentin (Neurontin) 600 mg PO Q6H [facility] Stop: 08/15/18 23:32 Gabapentin (Neurontin) 600 mg PO Q8H [facility] Stop: 08/16/18 23:32 Azithromycin 500 mg/ Dextrose 255 mls @ 125 mls/hr IV DAILY@2100 [facility] Stop: 08/20/18 20:59 Last Infusion: 08/14/18 22:59 Dose: Infused Documented by: Piperacillin Sod/Tazobactam (Sod 3.375 gm/ Dextrose) 115 mls @ 28.75 mls/hr IV Q8H [facility]; Protocol Stop: 08/21/18 01:59 Last Admin: 08/15/18 10:22 Dose: 28.8 mls/hr Documented by: Potassium Chloride 40 meq/ (Sodium Chloride) 1,020 mls @ 80 mls/hr IV .[id number] [facility] Stop: 09/13/18 07:59 Last Admin: 08/15/18 10:22 Dose: 80 mls/hr Documented by: Lorazepam (Ativan) 1 mg PO ONE PRN; Protocol PRN Reason: EtoH Withdrawal AWSS 6-10 Miscellaneous Information (Consult) 1 ea N/A UD PRN PRN Reason: Consult Stop: 09/12/18 20:11 Ondansetron HCl (Zofran) 4 mg IV Q4H PRN PRN Reason: Nausea Stop: 09/12/18 20:11 Prednisone (Prednisone) 50 mg PO DAILY [facility] Stop: 09/13/18 08:59 Last Admin: 08/15/18 08:12 Dose: 50 mg Documented by: Thiamine HCl (Vitamin B-1) 100 mg PO QAM [facility] Stop: 09/12/18 20:44 Last Admin: 08/15/18 08:12 Dose: 100 mg Documented by:
--- NOTE | 2018-08-15 11:51 | Pulmonology Progress Note ---
Date of Service August 15, 2018 Assessment & Plan (1) Pneumonia: Neuro- awake alert. watch for signs of alcohol withdrawal. has mild tremor CV- HD stable Pulmonary- acute hypoxic respiratory failure due to pneumonia. continue to titrate o2 for sat >90. COPD on albuterol, symbicort, prednisone ID- sepsis with evidence of end organ dysfunction due to pneumonia and strep pneumonia bacteremia await sensitivities. can change to ceftriaxone Renal- cr ok. hyponatremia improved with fluids. hypokalemia replace GI- diet as tolerated. LFTS increased likely related to alcohol abuse Heme- leukocytosis improved. SCD proph Subjective improving shortness of breath Physical Exam Vital Signs (Past 24 Hours): Last Vital Signs Temp 36.6 C 08/15/18 03:01 Pulse 63 08/15/18 06:56 Resp 16 08/15/18 06:56 BP 121/72 08/15/18 03:01 Pulse Ox 93 08/15/18 06:56 Physical Exam: Constitutional: Comfortable NAD on NC HEENT: normocephalic atraumatic. MMM CV: RRR nl s1,s2 no murmurs rubs or gallops Lungs: slight crackles bilaterally improved. no accessory muscle use Abd: soft nontender nondistended. normal bowel sounds Ext: no edema. no cyanosis, no clubbing Skin: warm dry Neuro: alert and oriented. moving all extremities. mild tremor Psych: normal mood and affect
[2018-08-15] MEDS ORDERED: GABAPENTIN 600 MG TAB PO SCH (12:15)
[2018-08-15] MEDS: cefTRIAXone SODIUM 2,000 MG in DEXTROSE 5% 50 ML IV SCH (13:51)
[2018-08-15] MEDS: GABAPENTIN 600 MG TAB PO SCH (17:45)
[2018-08-15] MEDS: ESCITALOPRAM OXALATE 20 MG TAB PO SCH (20:25)
[2018-08-15] MEDS: DIVALPROEX EXTENDED RELEASE 500 MG TAB PO SCH (20:25)
[2018-08-16] MEDS: GABAPENTIN 600 MG TAB PO SCH ×3 (00:11→17:42)
[2018-08-16 05:53] LABS: Hematocrit (blood only) 33.4 % (37-47); Hemoglobin 11.1 g/dL (12.0-16.0); Mean Corpuscular Hgb Conc 33.2 g/dL (32-36); Mean Corpuscular Volume 96.5 fL (80-100); Mean Platelet Volume 9.7 fL (7.4-10.4); Nucleated RBC # (auto) 0.06 K/uL (0-0); Nucleated RBC % (auto) 0.5 %; Platelet Count 137 K/uL (130-400); RDW Coefficient of Variation 14.7 % (11.5-14.5); RDW Standard Deviation 51.7 fL (36.4-46.3); Red Blood Count 3.46 M/uL (4.2-5.4); White Blood Count 12.72 K/uL (4.8-10.8)
[2018-08-16 06:16] LABS: BUN Creatinine Ratio 42.3 (10-20); Calcium 8.4 mg/dl (8.5-10.1); Est GFR (African American) 126.2; Est GFR (Non-African American) 108.9; Potassium 4.7 mmol/L (3.5-5.1)
[2018-08-16 06:36] LABS: Basophils # (auto) 0.21 K/uL (0-0.2); Basophils % (auto) 1.7 %; Eosinophils # (auto) 0.01 K/uL (0-0.5); Eosinophils % (auto) 0.1 %; Immature Granulocytes % (auto) 6.3 %; Lymphocytes # (auto) 1.31 K/uL (1.2-3.4); Lymphocytes % (auto) 10.3 %; Monocytes # (auto) 1.25 K/uL (0.11-0.59); Monocytes % (auto) 9.8 %; Neutrophils # (auto) 9.14 K/uL (1.4-6.5); Neutrophils % (auto) 71.8 %
[2018-08-16] MEDS: ALBUT/IPRATROP 3MG/0.5MG NEB 3 ML VIAL NEB SCH ×4 (07:04→19:13)
[2018-08-16] MEDS ORDERED: Nursing to Pharmacy Communication ONE (08:22)
[2018-08-16] MEDS: predniSONE 50 MG TAB PO SCH (08:39)
[2018-08-16] MEDS: THIAMINE HCL 100 MG TAB PO SCH (08:40)
[2018-08-16] MEDS: BUDESONIDE/FORMOTEROL FUMARATE 80/4.5 60 PUFFS/INHALER INH SCH ×2 (08:41→20:19)
--- NOTE | 2018-08-16 09:16 | Hospitalist Progress Note ---
Date of Service August 16, 2018 Assessment & Plan (1) Left lower lobe pneumonia: Necrotizing pneumonia seen on CTA chest on 08/13. Concerning for aspiration; possibly due to intoxication. - treated with Zosyn, stop Vanco due to MRSA swab negative, stop Zithromax change to Rocephin 2gm IV daily with blood cultures positive for Strep pneumo - blood cultures growing Strep pneumo, sensitivities pending consistent with necrotizing pneumonia repeat blood cultures drawn on 08/15/18, these show no growth thus far - Sputum cx shows no growth at this time - DuoNebs standing and PRN - Prednisone for COPD, taper to 40mg daily breathing much improved, down to 1L nasal canula WBC down to 12k will transfer to medical floor encourage OOB in chair, ambulate in the hallway (2) COPD (chronic obstructive pulmonary disease): no wheezing on exam continue Prednisone and nebulizers taper Prednisone from 50mg to 40mg daily (3) Severe sepsis: Hypotension and elevated lactate with known source of infection. SIRS 3/4 and qSOFA 2/3 at time of admission BP responded well to IV fluid boluses, continue NSS at 80cc/hr, still with poor oral intake stop fluids today, K is stable, Na high blood culture: Strep pneumo, repeat cultures drawn on 08/15 (4) Alcoholic hepatitis: AST and ALT now normal, no signs of hepatitis (5) ETOH abuse: Per , drinks 1.75L/wk of vodka. Prior detox episodes in our hospital. No seizures or DTs per patient and . EtOH level was 106 on admission. - TAVO protocol, start Gabapentin on 08/15 since she has more symptoms slightly more lethargic today but no withdrawal symptoms - Vitamin repletion - Continue divalproex Ativan PRN (6) Hypokalemia: resolved today (7) DVT prophylaxis: SCDs - Low risk per calculator transfer to medical floor, PT/OT Subjective patient says she feels fatigued, wants to sleep a lot explained that it is likely the Gabapentin breathing is stable, cough is productive trying to sit up more often, she ambulated in the hallway WBC down to 12k, Cr stable, K is now normal still awaiting sensitivities on the Strep pneumo blood cultures Review of Systems All systems reviewed & are unremarkable except as noted in HPI & below Constitutional: + fatigue, + malaise and + weakness Respiratory: + cough, + dyspnea and + dyspnea on exertion Physical Exam Vital Signs (Past 24 Hours): Last Vital Signs Temp 37.0 C 08/16/18 07:25 Pulse 88 08/16/18 07:25 Resp 21 08/16/18 07:25 BP 127/77 08/16/18 07:25 Pulse Ox 88 L 08/16/18 08:00 Constitutional: WD/WN, vitals as above Eyes: PERRL, conjunctivae normal, anicteric sclerae ENMT: external ear and nose normal, oropharynx normal Neck: trachea midline, no thyromegaly Respiratory: normal respiratory effort and + cough; no respiratory distress Auscultation: + crackles (left base); no wheezes Cardiovascular: RRR, no murmur, no edema Gastrointestinal (Abdomen): normal bowel sounds, soft, nontender, no hepatosplenomegaly Musculoskeletal: no cyanosis or clubbing, extremities motor strength 5/5 Skin: no rashes, warm and dry Neurologic: patellar DTR's 2+ bilat, sensation intact and PERRL, EOMI, accommodation nl, no face palsy, no dysarthria Motor/Sensory: + tremor (hands bilaterally, mild) Psychiatric: A+Ox3, euthymic affect Lymphatic: no cervical or axillary lymphadenopathy Results & Data Laboratory Results Laboratory Results - last 24 hr 08/15/18 08/16/18 08/16/18 08:28 05:22 05:22 WBC 12.72 H RBC 3.46 L Hgb 11.1 L Hct 33.4 L MCV 96.5 MCH 32.1 MCHC 33.2 RDW Std Deviation 51.7 H RDW Coeff of Don 14.7 H Plt Count 137 MPV 9.7 Immature Gran % (Auto) 6.3 Neut % (Auto) 71.8 Lymph % (Auto) 10.3 [place] % (Auto) 9.8 Eos % (Auto) 0.1 Baso % (Auto) 1.7 Immature Gran # (Auto) 0.80 H Neut # (Auto) 9.14 H Lymph # (Auto) 1.31 [place] # (Auto) 1.25 H Eos # (Auto) 0.01 Baso # (Auto) 0.21 H Absolute Nucleated RBC 0.06 H Nucleated RBC % (auto) 0.5 Sodium 144 143 Potassium 3.5 D 4.7 D Chloride 112 H 111 H Carbon Dioxide 27 28 Anion Gap 5.0 4.0 BUN 21 H 19 H Creatinine 0.54 L 0.46 L Est Cr Clr Drug Dosing 94.5 112.0 Est GFR ( Amer) 119.7 126.2 Est GFR (Non-Af Amer) 103.3 108.9 BUN/Creatinine Ratio 39.4 H 42.3 H Glucose 110 H 71 Calcium 8.5 8.4 L Medications Administered Current Inpatient Medications Acetaminophen (Tylenol) 500 mg PO Q4H PRN PRN Reason: pain/fever Stop: 09/12/18 20:11 Albuterol (Duoneb) 3 ml NEB QIDR [facility] Stop: 09/12/18 20:11 Last Admin: 08/16/18 07:04 Dose: 3 ml Documented by: Budesonide/Formoterol Fumarate (Symbicort 80mcg/4.5mcg) 2 puffs INH BID [facility] Stop: 09/12/18 20:59 Last Admin: 08/16/18 08:41 Dose: 2 puffs Documented by: Divalproex Sodium (Depakote Extended Release) 500 mg PO [facility] Stop: 09/13/18 20:59 Last Admin: 08/15/18 20:25 Dose: 500 mg Documented by: Escitalopram Oxalate (Lexapro) 20 mg PO [facility] Stop: 09/13/18 20:59 Last Admin: 08/15/18 20:25 Dose: 20 mg Documented by: Gabapentin (Neurontin) 600 mg PO Q12H [facility] Stop: 08/18/18 00:01 Gabapentin (Neurontin) 600 mg PO Q24H [facility] Stop: 08/19/18 00:01 Gabapentin (Neurontin) 600 mg PO Q8H [facility] Stop: 08/17/18 00:01 Last Admin: 08/16/18 08:41 Dose: 600 mg Documented by: Ceftriaxone Sodium 2,000 mg/ (Dextrose) 70 mls @ 100 mls/hr IV Q24H [facility] Stop: 08/22/18 13:59 Last Infusion: 08/15/18 14:38 Dose: Infused Documented by: Lorazepam (Ativan) 1 mg PO ONE PRN; Protocol PRN Reason: EtoH Withdrawal AWSS 6-10 Ondansetron HCl (Zofran) 4 mg IV Q4H PRN PRN Reason: Nausea Stop: 09/12/18 20:11 Prednisone (Prednisone) 50 mg PO DAILY [facility] Stop: 09/13/18 08:59 Last Admin: 08/16/18 08:39 Dose: 50 mg Documented by: Thiamine HCl (Vitamin B-1) [facility] [place] Stop: 09/12/18 20:44 Last Admin: 08/16/18 08:40 Dose: 100 mg Documented by:
[2018-08-16] MEDS: cefTRIAXone SODIUM 2,000 MG in DEXTROSE 5% 50 ML IV SCH (14:48)
[2018-08-16] MEDS: ESCITALOPRAM OXALATE 20 MG TAB PO SCH (20:18)
[2018-08-16] MEDS: DIVALPROEX EXTENDED RELEASE 500 MG TAB PO SCH (20:18)
[2018-08-17] MEDS: GABAPENTIN 600 MG TAB PO SCH ×2 (00:09→12:26)
[2018-08-17] MEDS: ALBUT/IPRATROP 3MG/0.5MG NEB 3 ML VIAL NEB SCH ×4 (07:28→20:18)
[2018-08-17 07:29] LABS: Hematocrit (blood only) 36.7 % (37-47); Hemoglobin 12.3 g/dL (12.0-16.0); Mean Corpuscular Hgb Conc 33.5 g/dL (32-36); Mean Corpuscular Volume 95.6 fL (80-100); Mean Platelet Volume 9.6 fL (7.4-10.4); Nucleated RBC # (auto) 0.07 K/uL (0-0); Nucleated RBC % (auto) 0.6 %; Platelet Count 134 K/uL (130-400); RDW Coefficient of Variation 14.7 % (11.5-14.5); RDW Standard Deviation 51.2 fL (36.4-46.3); Red Blood Count 3.84 M/uL (4.2-5.4); White Blood Count 12.25 K/uL (4.8-10.8)
[2018-08-17 07:44] LABS: BUN Creatinine Ratio 33.3 (10-20); Creatinine Clr Calc Pharmacy 114.5 ml/min; Est GFR (African American) 127.1; Est GFR (Non-African American) 109.7; Potassium 4.6 mmol/L (3.5-5.1)
[2018-08-17] MEDS: BUDESONIDE/FORMOTEROL FUMARATE 80/4.5 60 PUFFS/INHALER INH SCH ×2 (08:05→20:29)
[2018-08-17] MEDS: predniSONE 20 MG TAB PO SCH (08:05)
[2018-08-17] MEDS: THIAMINE HCL 100 MG TAB PO SCH (08:05)
[2018-08-17 08:20] LABS: ALC (manual) 3.06 K/uL (1.2-3.4); Basophils # (manual) 0.11 K/uL (0-0.2); Basophils % (manual) 0.9 %; Giant Platelets 1+; Lymphocytes # (manual) 3.06 K/uL (1.2-3.4); Metamyelocytes # (manual) 0.21 K/uL (0-0); Metamyelocytes % (manual) 1.7 %; Monocytes # (manual) 0.21 K/uL (0.11-0.59); Monocytes % (manual) 1.7 %; Myelocytes # (manual) 0.64 K/uL (0-0); Myelocytes % (manual) 5.2 %; Neutrophils % (manual) 63.8 %; Promyelocytes # (manual) 0.21 K/uL (0-0); Promyelocytes % (manual) 1.7 %; Target Cells 1+; Toxic Granulation 1+
[2018-08-17] MEDS: ACETYLCYSTEINE 20% INHAL SOLN ***DISPENSED BY RESP. INH SCH ×3 (08:27→20:18)
--- NOTE | 2018-08-17 11:10 | Hospitalist Progress Note ---
Date of Service August 17, 2018 Assessment & Plan (1) Left lower lobe pneumonia: Necrotizing pneumonia seen on CTA chest on 08/13. Concerning for aspiration; possibly due to intoxication. - treated with Zosyn, stop Vanco due to MRSA swab negative, stop Zithromax change to Rocephin 2gm IV daily with blood cultures positive for Strep pneumo - blood cultures growing Strep pneumo, sensitivities pending consistent with necrotizing pneumonia repeat blood cultures drawn on 08/15/18, these show no growth thus far - Sputum cx shows no growth at this time - DuoNebs standing and PRN - Prednisone for COPD, taper to 40mg daily breathing a little worse this morning, difficult time coughing up sputum ordered Mucomyst 5mL TID and percussion therapy with flutter valve patient reported breathing a lot better after treatment consult infectious disease for guidance on duration on abx, also whether she should have IV antibiotics on discharge (2) Parapneumonic effusion: evident on repeat CXR on 08/17 there was small effusion at time of admission pulmonology plans to perform thoracentesis today (3) COPD (chronic obstructive pulmonary disease): no wheezing on exam continue Prednisone and nebulizers taper Prednisone from 50mg to 40mg daily can likely taper Prednisone quickly on discharge consider down by 10mg every 2 days (4) Severe sepsis: Hypotension and elevated lactate with known source of infection. SIRS 3/4 and qSOFA 2/3 at time of admission BP responded well to IV fluid boluses stop fluids on 08/16 blood culture: Strep pneumo, repeat cultures drawn on 08/15 (5) Alcoholic hepatitis: AST and ALT now normal, no signs of hepatitis (6) ETOH abuse: Per , drinks 1.75L/wk of vodka. Prior detox episodes in our hospital. No seizures or DTs per patient and . EtOH level was 106 on admission. - TAVO protocol, start Gabapentin on 08/15 since she has more symptoms patient is responding well to Gabapentin, no tremors, she is calm - Vitamin repletion - Continue divalproex Ativan PRN (7) Hypokalemia: resolved (8) DVT prophylaxis: SCDs - Low risk per calculator PT/OT ordered thoracentesis today anticipate her requiring IV antibiotics on discharge, consult ID for recomm endations likely here for a few more days, might be ready by Saturday Subjective woke up this morning and felt warm, had some diarrhea had a bad coughing spell, her chest hurt a lot getting up some sputum, less yellow than before, it is now more white with bubbles no hemoptysis eating well, breathing a little easier discussed getting chest PT with respiratory therapy as well as Mucomyst will get repeat CXR CXR with increased left sided effusion, d/w Dr. Cool, will get thoracentesis discussed with patient, she agrees with thoracentesis she reported that her breathing was a lot better after mucomyst, cough was more productive Review of Systems All systems reviewed & are unremarkable except as noted in HPI & below Constitutional: + fatigue, + malaise and + weakness Respiratory: + cough, + dyspnea, + dyspnea on exertion, + pain with cough and + sputum production; no hemoptysis Cardiovascular: + chest pain (with coughing) Gastrointestinal: + diarrhea/loose stools; no abdominal pain, no nausea, no vomiting and no constipation Neurologic: + tremor(s) (minimal) Physical Exam Vital Signs (Past 24 Hours): Last Vital Signs Temp 36.2 C L 08/17/18 07:28 Pulse 76 08/17/18 07:28 Resp 18 08/17/18 07:28 BP 133/79 08/17/18 07:28 Pulse Ox 93 08/17/18 07:28 Constitutional: WD/WN, vitals as above Eyes: PERRL, conjunctivae normal, anicteric sclerae ENMT: external ear and nose normal, oropharynx normal Neck: trachea midline, no thyromegaly Respiratory: normal respiratory effort and + cough; no respiratory distress Auscultation: + diminished lung sounds (left base), + crackles (left base) and + rhonchi (left side); no wheezes Cardiovascular: RRR, no murmur, no edema Gastrointestinal (Abdomen): normal bowel sounds, soft, nontender, no hepatosplenomegaly Musculoskeletal: no cyanosis or clubbing, extremities motor strength 5/5 Skin: no rashes, warm and dry Neurologic: patellar DTR's 2+ bilat, sensation intact and PERRL, EOMI, accommodation nl, no face palsy, no dysarthria Motor/Sensory: + tremor (hands bilaterally, mild) Psychiatric: A+Ox3, euthymic affect Lymphatic: no cervical or axillary lymphadenopathy Results & Data Laboratory Results Laboratory Results - last 24 hr 08/17/18 08/17/18 08/17/18 06:35 07:17 07:17 WBC 12.25 H RBC 3.84 L Hgb 12.3 Hct 36.7 L MCV 95.6 MCH 32.0 MCHC 33.5 RDW Std Deviation 51.2 H RDW Coeff of Don 14.7 H Plt Count 134 MPV 9.6 Absolute Nucleated RBC 0.07 H Nucleated RBC % (auto) 0.6 Neutrophils % (Manual) 63.8 Lymphocytes % (Manual) 25.0 Monocytes % (Manual) 1.7 Basophils % (Manual) 0.9 Metamyelocytes % (Man) 1.7 Myelocytes % (Man) 5.2 Promyelocytes % (Man) 1.7 Neutrophils # (Manual) 7.82 H Total Absolute Neuts 7.82 H Lymphocytes # (Manual) 3.06 Total Abs Lymphocytes 3.06 Monocytes # (Manual) 0.21 Basophils # (Manual) 0.11 Metamyelocytes # (Man) 0.21 H Myelocytes # (Manual) 0.64 H Promyelocytes # (Man) 0.21 H Toxic Granulation 1+ Giant Platelets 1+ Target Cells 1+ Sodium 138 Potassium 4.6 Chloride 104 Carbon Dioxide 30 Anion Gap 4.0 BUN 15 Creatinine 0.45 L Est Cr Clr Drug Dosing 114.5 Est GFR ( Amer) 127.1 Est GFR (Non-Af Amer) 109.7 BUN/Creatinine Ratio 33.3 H Glucose 80 POC Glucose 84 Calcium 9.0 Diagnostic Findings XR chest 2V routine CLINICAL HISTORY: 58 years-old Female presenting with Hypoxia. TECHNIQUE: PA and lateral views of the chest were obtained. COMPARISON: CTA and chest x-ray 08/13/2018. FINDINGS: Atherosclerosis of the aortic arch. Cardiac silhouette mildly enlarged. Mild hyperinflation of the right lung. Moderate left pleural effusion with poor aeration of the left lung base. Previously noted left basilar opacity persists with increased size of the effusion is increased. Several calcified granulomata noted bilaterally. Trace right pleural effusion. Osseous structures normal. Moderate hiatal hernia. IMPRESSION: 1. Increased size of the now moderate left pleural effusion with left basilar infiltrate. Worsening parapneumonic effusion suspected. 2. Trace right pleural effusion. Medications Administered Current Inpatient Medications Acetaminophen (Tylenol) 500 mg PO Q4H PRN PRN Reason: pain/fever Stop: 09/12/18 20:11 Acetylcysteine (Mucomyst 20%) 5 ml INH TIDR [facility] Stop: 09/16/18 08:59 Last Admin: 08/17/18 11:05 Dose: 5 ml Documented by: Albuterol (Duoneb) 3 ml NEB QIDR [facility] Stop: 09/12/18 20:11 Last Admin: 08/17/18 11:05 Dose: 3 ml Documented by: Budesonide/Formoterol Fumarate (Symbicort 80mcg/4.5mcg) 2 puffs INH BID [facility] Stop: 09/12/18 20:59 Last Admin: 08/17/18 08:05 Dose: 2 puffs Documented by: Divalproex Sodium (Depakote Extended Release) 500 mg PO HS [facility] Stop: 09/13/18 20:59 Last Admin: 08/16/18 20:18 Dose: 500 mg Documented by: Escitalopram Oxalate (Lexapro) 20 mg PO HS [facility] Stop: 09/13/18 20:59 Last Admin: 08/16/18 20:18 Dose: 20 mg Documented by: Gabapentin (Neurontin) 600 mg PO Q12H [facility] Stop: 08/18/18 00:01 Gabapentin (Neurontin) 600 mg PO Q24H [facility] Stop: 08/19/18 00:01 Ceftriaxone Sodium 2,000 mg/ (Dextrose) 70 mls @ 100 mls/hr IV Q24H [facility] Stop: 08/22/18 13:59 Last Infusion: 08/16/18 16:05 Dose: Infused Documented by: Lorazepam (Ativan) 1 mg PO ONE PRN; Protocol PRN Reason: EtoH Withdrawal AWSS 6-10 Ondansetron HCl (Zofran) 4 mg IV Q4H PRN PRN Reason: Nausea Stop: 09/12/18 20:11 Prednisone (Prednisone) 40 mg PO DAILY [facility] Stop: 09/16/18 08:59 Last Admin: 08/17/18 08:05 Dose: 40 mg Documented by: Thiamine HCl (Vitamin B-1) 100 mg PO QAM [facility] Stop: 09/12/18 20:44 Last Admin: 08/17/18 08:05 Dose: 100 mg Documented by:
--- NOTE | 2018-08-17 12:32 | XRay Report ---
XR chest 2V routine CLINICAL HISTORY: 58 years-old Female presenting with Hypoxia. TECHNIQUE: PA and lateral views of the chest were obtained. COMPARISON: CTA and chest x-ray 08/13/2018. FINDINGS: Atherosclerosis of the aortic arch. Cardiac silhouette mildly enlarged. Mild hyperinflation of the ri ght lung. Moderate left pleural effusion with poor aeration of the left lung base. Previously noted l eft basilar opacity persists with increased size of the effusion is increased. Several calcified gran ulomata noted bilaterally. Trace right pleural effusion. Osseous structures normal. Moderate hiatal h ernia. IMPRESSION: 1. Increased size of the now moderate left pleural effusion with left basilar infiltrate. Worsening parapneumonic effusion suspected. 2. Trace right pleural effusion. Electronically signed by: Akil Butcher M.D. 08/17/2018 12:31 PM
[2018-08-17] MEDS: cefTRIAXone SODIUM 2,000 MG in DEXTROSE 5% 50 ML IV SCH (14:08)
--- NOTE | 2018-08-17 15:29 | Pulmonology Progress Note ---
Date of Service August 17, 2018 Assessment & Plan (1) Pneumonia: acute hypoxic respiratory failure due to pneumonia. continue to titrate o2 for sat >90. COPD on albuterol, symbicort, prednisone sepsis with evidence of end organ dysfunction due to pneumonia and strep pneumonia bacteremia ceftriaxone new pleural effusion thoracentesis today 600 ml of slightly cloudy yellow fluid. by appearance not empyema. await studies Subjective more sob and coughing this morning better now Physical Exam Vital Signs (Past 24 Hours): Last Vital Signs Temp 36.2 C L 08/17/18 07:28 Pulse 84 08/17/18 14:25 Resp 18 08/17/18 14:25 BP 133/79 08/17/18 07:28 Pulse Ox 91 08/17/18 14:25 Physical Exam: Constitutional: Comfortable NAD HEENT: normocephalic atraumatic. MMM. CV: RRR nl s1,s2 no murmurs rubs or gallops Lungs: crackles bilaterally L>R. no accessory muscle use Abd: soft nontender nondistended. Ext: no edema. no cyanosis, no clubbing Skin: warm dry Neuro: alert and oriented. moving all extremities Psych: normal mood and affect
--- NOTE | 2018-08-17 15:36 | Procedure Note ---
Procedure Note Date of Service August 17, 2018 L thoracentesis after informed consent fluid pocket identified using ultrasound area anesthetized with lidocaine thoracentesis catheter inserted without difficulty and 600 ml of slightly cloudy yellow fluid obtained patient tolerated procedure well fluid sent for culture cell count, LDH glucose protein and cytology
[2018-08-17 16:07] LABS: Glucose Pleural Fluid 237 mg/dl
[2018-08-17 16:12] LABS: LDH Pleural Fluid 125 U/L; Total Protein Pleural Fluid 1.9 g/dl
[2018-08-17 16:33] LABS: Appearance Pleural Fluid CLOUDY; Color Pleural Fluid PALE YELLOW; Mononuclear WBC Pleural 7.9 %; Polynuclear WBC Pleural 92.1 %; RBC Pleural Fluid (A) < 3000 /uL; Source Pleural Fluid LEFT LUNG; WBC Pleural Fluid (A) 2700 /uL
[2018-08-17] MEDS: DIVALPROEX EXTENDED RELEASE 500 MG TAB PO SCH (20:29)
[2018-08-17] MEDS: ESCITALOPRAM OXALATE 20 MG TAB PO SCH (20:29)
[2018-08-18] MEDS: GABAPENTIN 600 MG TAB PO SCH
--- NOTE | 2018-08-18 03:46 | Infectious Disease Consult ---
Date of Consultation August 17, 2018 Assessment & Plan (1) Sepsis due to Streptococcus pneumoniae: 58-year-old female with strep pneumoniae sepsis with pneumonia and effusion now status post thoracentesis. Ceftriaxone appropriate antibiotics pending cultures from pleural fluid. Length of IV antibiotics yet to be determined, will be based on clinical response. Will follow. (2) Pneumonia: (3) Parapneumonic effusion: History of Present Illness Reason for Consultation: Necrotizing pneumonia, strep pneumoniae bacteremia Attending Physician: Dann Sanchez DO History of Present Illness 8-year-old female with history of COPD, alcohol abuse, prior history of alcoholic hepatitis, who states that she has been ill since winter with recurrent and persistent respiratory symptoms with cough, shortness of breath, sputum production, and occasional fevers. Is received courses of antibiotics and steroids with some improvement but with subsequent worsening. Over the last 1-2 weeks prior to her admission, she noted progressively worsening shortness of breath along with weakness, fatigue, fever and chills, and thick sputum production or with some blood tingeing. Was seen by primary care physician and sent to the emergency room where had evidence of sepsis. Chest x-ray showed what appeared to be necrotizing left lower lobe pneumonia with effusion. Has now been found to have positive blood cultures for Streptococcus pneumoniae. Currently on IV ceftriaxone with some clinical improvement. Was noted to have worsening effusion, and yesterday underwent left-sided thoracentesis with finding of 600 cc of slightly cloudy fluid. Gram stain is negative, cultures are pending. Follow-up blood cultures have been no growth. Currently complaining of some diarrhea. Allergies Allergy/AdvReac Type Severity Reaction Status Date / Time RACIEL Inhibitors AdvReac Mild COUGH Verified 08/13/18 18:06 naltrexone [From Vivitrol] AdvReac Unknown Unverified 08/13/18 18:06 Home Medications Home Medications Medication Instructions Recorded Confirmed Type budesonide-formoterol [Symbicort] 2 puff INHALATION BID 08/13/18 08/13/18 History dextroamphetamine-amphetamine 1.5 mg PO DIRECTED 08/13/18 08/13/18 History [Adderall] divalproex 500 mg PO DAILY 08/13/18 08/13/18 History escitalopram oxalate [Lexapro] 20 mg PO DAILY 08/13/18 08/13/18 History trazodone 0 mg PO DAILY PRN 08/13/18 08/13/18 History Patient History Medical History Tachycardia (Acute 08/17/13) Alcohol withdrawal syndrome (Acute) COPD (chronic obstructive pulmonary disease) (Chronic) Asthma (Chronic) Jaundice (Acute) Leukocytosis (Acute 04/21/14) Liver failure, acute (Acute 04/21/14) ETOH abuse (Resolved 08/17/13) Alcoholic hepatitis (Chronic) Left lower lobe pneumonia Surgical History S/P removal of ovarian cyst Family History Father Hypertension Social History Preferred Language: Tajik Communication Ability: Effective 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 Beliefs That Will Affect Care: None marital status: Current Living Situation: Spouse Other Information That Helps Us Care for You: No Feels Safe at Home: Yes Safety Concerns: Feels Safe At This Time Smoking Status: Current every day smoker Hx Alcohol Use: Yes Hx Substance Use: Yes Review of Systems All systems were reviewed and are negative except as per HPI Physical Exam Vital Signs (Past 24 Hours): Last Vital Signs Temp 37.0 C 08/17/18 23:56 Pulse 70 08/17/18 23:56 Resp 18 08/17/18 23:56 BP 105/66 08/17/18 23:56 Pulse Ox 95 08/17/18 23:56 Constitutional: WD/WN, vitals as above comfortable; no acute distress Eyes: PERRL, conjunctivae normal, anicteric sclerae ENMT: external ear and nose normal, oropharynx normal Neck: trachea midline, no thyromegaly neck nontender Respiratory: no respiratory distress and does not use accessory muscles Auscultation: + rhonchi (Left base) Cardiovascular: Rate/Rhythm: regular rate and regular rhythm Heart Sounds: normal S1 and normal S2; no gallop, no murmur and no cardiac rub Vessels: normal peripheral pulses; no JVD Gastrointestinal (Abdomen): normal bowel sounds, soft, nontender, no hepatosplenomegaly Musculoskeletal: no cyanosis or clubbing, extremities motor strength 5/5 Spine: thoracic spine normal to inspection and lumbar spine normal to inspection; no cervical spinal tenderness Skin: no rashes, warm and dry normal turgor; no lesions Neurologic: patellar DTR's 2+ bilat, sensation intact no focal motor deficits Psychiatric: A+Ox3, euthymic affect Orientation: cooperative Lymphatic: no cervical or axillary lymphadenopathy no inguinal lymphadenopathy Results & Data Laboratory Results Short CBC 08/17/18 Range/Units 07:17 WBC 12.25 H (4.8-10.8) K/uL Hgb 12.3 (12.0-16.0) g/dL Hct 36.7 L (37-47) % Plt Count 134 (130-400) K/uL BMP 08/17/18 07:17 Sodium 138 Potassium 4.6 Chloride 104 Carbon Dioxide 30 BUN 15 Creatinine 0.45 L Glucose 80 Calcium 9.0 Diagnostic Findings Microbiology 08/17/18 Unknown Pleural Fluid Gram Stain - Preliminary 08/13/18 16:28 Blood Blood Culture - Final Streptococcus pneumoniae 08/15/18 08:33 Blood Blood Culture - Preliminary No growth to date. 08/15/18 08:28 Blood Blood Culture - Preliminary No growth to date. 08/14/18 08:35 Sputum, Expectorated Gram Stain - Final 08/14/18 08:35 Sputum, Expectorated Sputum Culture - Final Moderate normal miguel. 08/13/18 16:34 Blood Blood Culture - Final Streptococcus pneumoniae XR chest 2V routine CLINICAL HISTORY: 58 years-old Female presenting with Hypoxia. TECHNIQUE: PA and lateral views of the chest were obtained. COMPARISON: CTA and chest x-ray 08/13/2018. FINDINGS: Atherosclerosis of the aortic arch. Cardiac silhouette mildly enlarged. Mild hyperinflation of the right lung. Moderate left pleural effusion with poor aeration of the left lung base. Previously noted left basilar opacity persists with increased size of the effusion is increased. Several calcified granulomata noted bilaterally. Trace right pleural effusion. Osseous structures normal. Moderate hiatal hernia. IMPRESSION: 1. Increased size of the now moderate left pleural effusion with left basilar infiltrate. Worsening parapneumonic effusion suspected. 2. Trace right pleural effusion. Electronically signed by: Akil Butcher M.D. 08/17/2018 12:31 PM (1) Pneumonia Laterality: unspecified laterality Lung location: unspecified part of lung Pneumonia type: due to unspecified organism Qualified Code(s): J18.9 - Pneumonia, unspecified organism
[2018-08-18] MEDS: ACETYLCYSTEINE 20% INHAL SOLN ***DISPENSED BY RESP. INH SCH ×3 (07:32→19:15)
[2018-08-18] MEDS: ALBUT/IPRATROP 3MG/0.5MG NEB 3 ML VIAL NEB SCH ×4 (07:32→19:15)
[2018-08-18] MEDS: BUDESONIDE/FORMOTEROL FUMARATE 80/4.5 60 PUFFS/INHALER INH SCH ×2 (08:21→20:28)
[2018-08-18] MEDS: predniSONE 20 MG TAB PO SCH (08:21)
[2018-08-18] MEDS: THIAMINE HCL 100 MG TAB PO SCH (08:21)
[2018-08-18] MEDS: cefTRIAXone SODIUM 2,000 MG in DEXTROSE 5% 50 ML IV SCH (13:26)
--- NOTE | 2018-08-18 16:36 | Progress Note ---
DATE: 08/18/2018 PULMONARY MEDICINE PROGRESS NOTE Chart reviewed, patient examined. SUBJECTIVE: [place] much improved following the left-sided thoracentesis performed by Dr. Cool yesterday, which was 600 mL, slightly cloudy, yellow, turbid fluid which was sent off for analysis. Dr. Simon has seen patient in consultation, but felt patient's presentation was consistent with sepsis from streptococcal pneumonia. The patient is currently on IV ceftriaxone and was felt to have a parapneumonic effusion. She has some right-sided pleuritic pain and prior to the thoracentesis had difficulty lying on either side without extreme dyspnea. She feels that there has been improvement in her breathing since the thoracentesis. OBJECTIVE: VITAL SIGNS: Current temperature 37, pulse 70 and regular, respiratory rate 18, blood pressure 105/66, pulse ox 95%. SKIN: Without lesion. HEENT: Atraumatic, normocephalic. PERRLA. LUNGS: Decreased breath sounds at left base greater than right. CARDIAC: Regular rate and rhythm. No murmurs or gallops. ABDOMEN: Soft, protuberant. EXTREMITIES: Trace pedal edema. No clubbing. Peripheral cyanosis. NEUROLOGIC: Intact. No lateralizing signs. LABORATORY DATA: CT scan on 08/13/2018 showed no evidence of pulmonary thromboembolic disease, but extensive lingular left lower lobe consolidation, possible aspiration. Moderate emphysema with mildly enlarged mediastinal and left hilar lymph nodes, and moderate size hiatal hernia. Chest x-ray yesterday shows a moderate left-sided pleural effusion. Blood cultures grew out strep pneumonia x2. So far, the pleural fluid was sterile. White count yesterday 12,000, H and H 12 and 36. White count on admission was 23,000 with a leftward shift. Fluids, pH was 7.45, 27,100 white count, positive on polymorphonuclear leukocytes. LDH is 125, protein was 1.9, surprised at the level of the protein and LDH in the fluid which suggested a transudate. OVERALL ASSESSMENT: A 58-year-old with severe chronic obstructive pulmonary disease, strep pneumonia with lingula, left lower lobe consolidation and effusion, presumptive diagnosis of left parapneumonic effusion. I have reviewed the CT scan, the level of consolidation is impressive and the patient may very well require bronchoscopic intervention. I see very little to virtually absent fluid on the right side. Will reimage patient and make additional recommendations.
--- NOTE | 2018-08-18 19:32 | Infectious Disease Progress Nt ---
Date of Service August 18, 2018 Assessment & Plan (1) Sepsis due to Streptococcus pneumoniae: 58-year-old female with strep pneumoniae sepsis with pneumonia and effusion now status post thoracentesis. Ceftriaxone appropriate antibiotics pending cultures from pleural fluid. Length of IV antibiotics yet to be determined, will be based on clinical response. Will follow. (2) Pneumonia: (3) Parapneumonic effusion: Subjective Patient seen in follow-up for pneumococcal sepsis and pneumonia. Feels slightly better today, breathing somewhat improved. No hemoptysis. Remains afebrile. Tolerating antibiotics without apparent difficulty. Review of Systems All systems reviewed & are unremarkable except as noted in HPI & below Physical Exam Vital Signs (Past 24 Hours): Last Vital Signs Temp 37.0 C 08/18/18 14:58 Pulse 88 08/18/18 19:16 Resp 14 08/18/18 19:16 BP 104/68 08/18/18 14:58 Pulse Ox 90 08/18/18 19:16 Constitutional: WD/WN, vitals as above comfortable; no acute distress Eyes: PERRL, conjunctivae normal, anicteric sclerae ENMT: external ear and nose normal, oropharynx normal Neck: trachea midline, no thyromegaly neck nontender Respiratory: no respiratory distress and does not use accessory muscles Auscultation: + rhonchi (Left base) Cardiovascular: Rate/Rhythm: regular rate and regular rhythm Heart Sounds: normal S1 and normal S2; no gallop, no murmur and no cardiac rub Vessels: normal peripheral pulses; no JVD Gastrointestinal (Abdomen): normal bowel sounds, soft, nontender, no hepatosplenomegaly Musculoskeletal: no cyanosis or clubbing, extremities motor strength 5/5 Spine: thoracic spine normal to inspection and lumbar spine normal to inspection; no cervical spinal tenderness Skin: no rashes, warm and dry normal turgor; no lesions Neurologic: patellar DTR's 2+ bilat, sensation intact no focal motor deficits Psychiatric: A+Ox3, euthymic affect Orientation: cooperative Lymphatic: no cervical or axillary lymphadenopathy no inguinal lymphadenopathy Results & Data Laboratory Results Laboratory Results - last 48 hr 08/17/18 08/17/18 08/17/18 06:35 07:17 07:17 WBC 12.25 H RBC 3.84 L Hgb 12.3 Hct 36.7 L MCV 95.6 MCH 32.0 MCHC 33.5 RDW Std Deviation 51.2 H RDW Coeff of Don 14.7 H Plt Count 134 MPV 9.6 Absolute Nucleated RBC 0.07 H Nucleated RBC % (auto) 0.6 Neutrophils % (Manual) 63.8 Lymphocytes % (Manual) 25.0 Monocytes % (Manual) 1.7 Basophils % (Manual) 0.9 Metamyelocytes % (Man) 1.7 Myelocytes % (Man) 5.2 Promyelocytes % (Man) 1.7 Neutrophils # (Manual) 7.82 H Total Absolute Neuts 7.82 H Lymphocytes # (Manual) 3.06 Total Abs Lymphocytes 3.06 Monocytes # (Manual) 0.21 Basophils # (Manual) 0.11 Metamyelocytes # (Man) 0.21 H Myelocytes # (Manual) 0.64 H Promyelocytes # (Man) 0.21 H Blood Smear Review Toxic Granulation 1+ Giant Platelets 1+ Target Cells 1+ Sodium 138 Potassium 4.6 Chloride 104 Carbon Dioxide 30 Anion Gap 4.0 BUN 15 Creatinine 0.45 L Est Cr Clr Drug Dosing 114.5 Est GFR ( Amer) 127.1 Est GFR (Non-Af Amer) 109.7 BUN/Creatinine Ratio 33.3 H Glucose 80 POC Glucose 84 Calcium 9.0 Lactate Dehydrogenase Total Protein Fluid Slide Review Pleural Fluid Source Pleural Color Pleural Appearance Pleural pH Pleural WBC Pleural RBC Pleural Polynuclear % Pleural Mononuclear % Pleural Total Protein Pleural LDH Pleural Glucose 08/17/18 08/17/18 08/17/18 15:54 15:54 Unknown WBC RBC Hgb Hct MCV MCH MCHC RDW Std Deviation RDW Coeff of Don Plt Count MPV Absolute Nucleated RBC Nucleated RBC % (auto) Neutrophils % (Manual) Lymphocytes % (Manual) Monocytes % (Manual) Basophils % (Manual) Metamyelocytes % (Man) Myelocytes % (Man) Promyelocytes % (Man) Neutrophils # (Manual) Total Absolute Neuts Lymphocytes # (Manual) Total Abs Lymphocytes Monocytes # (Manual) Basophils # (Manual) Metamyelocytes # (Man) Myelocytes # (Manual) Promyelocytes # (Man) Blood Smear Review Toxic Granulation Giant Platelets Target Cells Sodium Potassium Chloride Carbon Dioxide Anion Gap BUN Creatinine Est Cr Clr Drug Dosing Est GFR ( Amer) Est GFR (Non-Af Amer) BUN/Creatinine Ratio Glucose POC Glucose Calcium Lactate Dehydrogenase 182 Total Protein 5.6 L Fluid Slide Review Pleural Fluid Source LEFT LUNG Pleural Color PALE YELLOW Pleural Appearance CLOUDY Pleural pH Pleural WBC 2700 Pleural RBC < 3000 Pleural Polynuclear % 92.1 Pleural Mononuclear % 7.9 Pleural Total Protein 1.9 Pleural LDH 125 Pleural Glucose 237 08/17/18 Unknown WBC RBC Hgb Hct MCV MCH MCHC RDW Std Deviation RDW Coeff of Don Plt Count MPV Absolute Nucleated RBC Nucleated RBC % (auto) Neutrophils % (Manual) Lymphocytes % (Manual) Monocytes % (Manual) Basophils % (Manual) Metamyelocytes % (Man) Myelocytes % (Man) Promyelocytes % (Man) Neutrophils # (Manual) Total Absolute Neuts Lymphocytes # (Manual) Total Abs Lymphocytes Monocytes # (Manual) Basophils # (Manual) Metamyelocytes # (Man) Myelocytes # (Manual) Promyelocytes # (Man) Blood Smear Review Toxic Granulation Giant Platelets Target Cells Sodium Potassium Chloride Carbon Dioxide Anion Gap BUN Creatinine Est Cr Clr Drug Dosing Est GFR ( Amer) Est GFR (Non-Af Amer) BUN/Creatinine Ratio Glucose POC Glucose Calcium Lactate Dehydrogenase Total Protein Fluid Slide Review Pleural Fluid Source Pleural Color Pleural Appearance Pleural pH 7.45 H Pleural WBC Pleural RBC Pleural Polynuclear % Pleural Mononuclear % Pleural Total Protein Pleural LDH Pleural Glucose Diagnostic Findings Microbiology 08/17/18 Unknown Pleural Fluid Gram Stain - Final 08/17/18 Unknown Pleural Fluid Aerobic and Anaerobic Culture - Preliminary No growth to date. 08/13/18 16:28 Blood Blood Culture - Final Streptococcus pneumoniae 08/15/18 08:33 Blood Blood Culture - Preliminary No growth to date. 08/15/18 08:28 Blood Blood Culture - Preliminary No growth to date. 08/14/18 08:35 Sputum, Expectorated Gram Stain - Final 08/14/18 08:35 Sputum, Expectorated Sputum Culture - Final Moderate normal miguel. 08/13/18 16:34 Blood Blood Culture - Final Streptococcus pneumoniae (1) Pneumonia Laterality: unspecified laterality Lung location: unspecified part of lung Pneumonia type: due to unspecified organism Qualified Code(s): J18.9 - Pneumonia, unspecified organism
[2018-08-18] MEDS: ESCITALOPRAM OXALATE 20 MG TAB PO SCH (20:27)
[2018-08-18] MEDS: DIVALPROEX EXTENDED RELEASE 500 MG TAB PO SCH (20:27)
--- NOTE | 2018-08-18 22:52 | Hospitalist Progress Note ---
Date of Service August 18, 2018 Assessment & Plan (1) Left lower lobe pneumonia: Necrotizing pneumonia seen on CTA chest on 08/13. Concerning for aspiration; possibly due to intoxication. - treated with Zosyn, stop Vanco due to MRSA swab negative, stop Zithromax change to Rocephin 2gm IV daily with blood cultures positive for Strep pneumo - blood cultures growing Strep pneumo, sensitivities pending consistent with necrotizing pneumonia repeat blood cultures drawn on 08/15/18, these show no growth thus far - Sputum cx shows no growth at this time - DuoNebs standing and PRN - Prednisone for COPD, taper to 40mg daily Breathing better after thoracocenthesis. Awaiting patholgy. ordered Mucomyst 5mL TID and percussion therapy with flutter valve consult infectious disease for guidance on duration on abx, also whether she should have IV antibiotics on discharge (2) Parapneumonic effusion: evident on repeat CXR on 08/17 there was small effusion at time of admission thoracocenthesis was completed. (3) COPD (chronic obstructive pulmonary disease): no wheezing on exam continue Prednisone and nebulizers taper Prednisone from 50mg to 40mg daily can likely taper Prednisone quickly on discharge consider down by 10mg every 2 days (4) Severe sepsis: Hypotension and elevated lactate with known source of infection. SIRS 3/4 and qSOFA 2/3 at time of admission BP responded well to IV fluid boluses stop fluids on 08/16 blood culture: Strep pneumo, repeat cultures drawn on 08/15 (5) Alcoholic hepatitis: AST and ALT now normal, no signs of hepatitis (6) ETOH abuse: Per , drinks 1.75L/wk of vodka. Prior detox episodes in our hospital. No seizures or DTs per patient and . EtOH level was 106 on admission. - TAVO protocol, start Gabapentin on 08/15 since she has more symptoms patient is responding well to Gabapentin, no tremors, she is calm - Vitamin repletion - Continue divalproex Ativan PRN (7) Hypokalemia: resolved (8) DVT prophylaxis: SCDs - Low risk per calculator PT/OT ordered Spent 35 minutes in management of patient. anticipate her requiring IV antibiotics on discharge, consult ID for recommendations likely here for a few more days, might be ready by Saturday Subjective Patient reports breathing better and feeling better today. She also reports eating well. Constitutional: + fatigue, + malaise and + weakness Respiratory: + cough, + dyspnea, + dyspnea on exertion, + pain with cough and + sputum production; no hemoptysis Cardiovascular: + chest pain (with coughing) Gastrointestinal: + diarrhea/loose stools; no abdominal pain, no nausea, no vomiting and no constipation Neurologic: + tremor(s) (minimal) Physical Exam Vital Signs (Past 24 Hours): Last Vital Signs Temp 37.0 C 08/18/18 14:58 Pulse 88 08/18/18 19:16 Resp 14 08/18/18 19:16 BP 104/68 08/18/18 14:58 Pulse Ox 90 08/18/18 19:16 Physical Exam: Constitutional: WD/WN, vitals as above Eyes: PERRL, conjunctivae normal, anicteric sclerae ENMT: external ear and nose normal, oropharynx normal Neck: trachea midline, no thyromegaly Respiratory: normal respiratory effort and + cough; no respiratory distress Auscultation: + diminished lung sounds (left base); no wheezes Cardiovascular: RRR, no murmur, no edema Gastrointestinal (Abdomen): normal bowel sounds, soft, nontender, no hepatosplenomegaly Musculoskeletal: no cyanosis or clubbing, extremities motor strength 5/5 Skin: no rashes, warm and dry Neurologic: patellar DTR's 2+ bilat, sensation intact and PERRL, EOMI, accommodation nl, no face palsy, no dysarthria Motor/Sensory: + tremor (hands bilaterally, mild) Psychiatric: A+Ox3, euthymic affect Lymphatic: no cervical or axillary lymphadenopathy
[2018-08-19] MEDS ORDERED: GABAPENTIN 600 MG TAB PO SCH
[2018-08-19] MEDS: ALBUT/IPRATROP 3MG/0.5MG NEB 3 ML VIAL NEB SCH ×4 (07:20→19:40)
[2018-08-19] MEDS: ACETYLCYSTEINE 20% INHAL SOLN ***DISPENSED BY RESP. INH SCH ×3 (07:21→19:41)
[2018-08-19] MEDS: BUDESONIDE/FORMOTEROL FUMARATE 80/4.5 60 PUFFS/INHALER INH SCH ×2 (08:07→20:50)
[2018-08-19] MEDS: predniSONE 20 MG TAB PO SCH (08:07)
[2018-08-19] MEDS: THIAMINE HCL 100 MG TAB PO SCH (08:07)
--- NOTE | 2018-08-19 09:06 | XRay Report ---
XR chest 2V routine CLINICAL HISTORY: pneumonia dyspnea COMPARISON STUDY: 08/17/2018 FINDINGS: Parenchymal infiltrative change left base combined with a small left effusion. This appeara nce is similar as compared to the prior study. Unchanged trace effusion right base. Lungs otherwise a ppear clear. Scattered calcified granulomas are stable. IMPRESSION: 1. No change from the prior study. 2. Unchanging left basilar infiltrate and effusion. 3. Unchanging minimal right effusion. 4. Unchanging hiatal hernia. The above report was generated using voice recognition software. It may contain grammatical, syntax or spelling errors. Electronically signed by: Danny Aguillon M.D. 08/19/2018 9:04 AM
[2018-08-19] MEDS ORDERED: SODIUM CHLORIDE 0.9% 1000ML 1,000 ML IV SCH (09:45)
--- NOTE | 2018-08-19 09:58 | Progress Note ---
DATE: 08/19/2018 PULMONARY MEDICINE PROGRESS NOTE Chart reviewed, patient examined. SUBJECTIVE: The patient is improved today, can sleep on her left side, less dyspneic, not producing much phlegm. Pleuritic pain has improved. OBJECTIVE: VITAL SIGNS: Blood pressure 110/69, pulse 87 and regular, respiratory rate 18, temperature 37, O2 sat 97% on 4 liters. SKIN: Without lesion. HEENT: Atraumatic, normocephalic, PERRLA, EOMI. Conjunctivae pale. Sclerae nonicteric. Fundi poorly visualized. NECK: Neck veins are not distended at 45 degrees. No adenopathy in the supra or infraclavicular areas. LUNGS: Scattered rhonchi with egophony, left mid lung, left base. CARDIAC: Regular rate and rhythm. No murmurs or gallops. ABDOMEN: Soft, scaphoid. No evidence of hepatosplenomegaly. EXTREMITIES: No pedal edema, clubbing or cyanosis. NEUROLOGIC: Intact. No lateralizing signs. ASSESSMENT: A 58-year-old white female presents with strep pneumonia sepsis, bronchopneumonia involving the lingula and left lower lobe with probable parapneumonic effusion with persistent consolidation scheduled for bronchoscopic intervention tomorrow. We will re-ultrasound the residual left pleural fluid. I suspect it is not enough to warrant repeat thoracentesis, but will reevaluate. MTDD
--- NOTE | 2018-08-19 10:51 | Infectious Disease Progress Nt ---
Date of Service August 19, 2018 Assessment & Plan (1) Sepsis due to Streptococcus pneumoniae: 58-year-old female with strep pneumoniae sepsis with pneumonia and effusion now status post thoracentesis. Ceftriaxone appropriate for now, could consider transition to oral levofloxacin after bronchoscopy to complete course of therapy. Will follow. (2) Pneumonia: (3) Parapneumonic effusion: Subjective Patient seen in follow-up for pneumococcal sepsis and pneumonia. Feels slightly better today, breathing somewhat improved. No hemoptysis. Remains afebrile. Tolerating antibiotics without apparent difficulty. Plans for bronchoscopy noted. Review of Systems All systems reviewed & are unremarkable except as noted in HPI & below Physical Exam Vital Signs (Past 24 Hours): Last Vital Signs Temp 37.0 C 08/19/18 07:19 Pulse 87 08/19/18 10:44 Resp 18 08/19/18 10:44 BP 110/69 08/19/18 07:19 Pulse Ox 97 08/19/18 10:44 Constitutional: WD/WN, vitals as above comfortable; no acute distress Eyes: PERRL, conjunctivae normal, anicteric sclerae ENMT: external ear and nose normal, oropharynx normal Neck: trachea midline, no thyromegaly neck nontender Respiratory: no respiratory distress and does not use accessory muscles Auscultation: + rhonchi (Left base) Cardiovascular: Rate/Rhythm: regular rate and regular rhythm Heart Sounds: normal S1 and normal S2; no gallop, no murmur and no cardiac rub Vessels: normal peripheral pulses; no JVD Gastrointestinal (Abdomen): normal bowel sounds, soft, nontender, no hepatosplenomegaly Musculoskeletal: no cyanosis or clubbing, extremities motor strength 5/5 Spine: thoracic spine normal to inspection and lumbar spine normal to inspection; no cervical spinal tenderness Skin: no rashes, warm and dry normal turgor; no lesions Neurologic: patellar DTR's 2+ bilat, sensation intact no focal motor deficits Psychiatric: A+Ox3, euthymic affect Orientation: cooperative Lymphatic: no cervical or axillary lymphadenopathy no inguinal lymphadenopathy Results & Data Laboratory Results Laboratory Results - last 48 hr 08/17/18 08/17/18 08/17/18 07:17 15:54 15:54 Blood Smear Review Lactate Dehydrogenase 182 Total Protein 5.6 L Fluid Slide Review Pleural Fluid Source Pleural Color Pleural Appearance Pleural pH Pleural WBC Pleural RBC Pleural Polynuclear % Pleural Mononuclear % Pleural Total Protein Pleural LDH Pleural Glucose 08/17/18 08/17/18 Unknown Unknown Blood Smear Review Lactate Dehydrogenase Total Protein Fluid Slide Review Pleural Fluid Source LEFT LUNG Pleural Color PALE YELLOW Pleural Appearance CLOUDY Pleural pH 7.45 H Pleural WBC 2700 Pleural RBC < 3000 Pleural Polynuclear % 92.1 Pleural Mononuclear % 7.9 Pleural Total Protein 1.9 Pleural LDH 125 Pleural Glucose 237 Diagnostic Findings Microbiology 08/17/18 Unknown Pleural Fluid Gram Stain - Final 08/17/18 Unknown Pleural Fluid Aerobic and Anaerobic Culture - Preliminary No growth to date. 08/13/18 16:28 Blood Blood Culture - Final Streptococcus pneumoniae 08/15/18 08:33 Blood Blood Culture - Preliminary No growth to date. 08/15/18 08:28 Blood Blood Culture - Preliminary No growth to date. 08/14/18 08:35 Sputum, Expectorated Gram Stain - Final 08/14/18 08:35 Sputum, Expectorated Sputum Culture - Final Moderate normal miguel. 08/13/18 16:34 Blood Blood Culture - Final Streptococcus pneumoniae cc: ~ XR chest 2V routine CLINICAL HISTORY: pneumonia dyspnea COMPARISON STUDY: 08/17/2018 FINDINGS: Parenchymal infiltrative change left base combined with a small left effusion. This appearance is similar as compared to the prior study. Unchanged trace effusion right base. Lungs otherwise appear clear. Scattered calcified granulomas are stable. IMPRESSION: 1. No change from the prior study. 2. Unchanging left basilar infiltrate and effusion. 3. Unchanging minimal right effusion. 4. Unchanging hiatal hernia. The above report was generated using voice recognition software. (1) Pneumonia Laterality: unspecified laterality Lung location: unspecified part of lung Pneumonia type: due to unspecified organism Qualified Code(s): J18.9 - Pneumonia, unspecified organism
[2018-08-19] MEDS: cefTRIAXone SODIUM 2,000 MG in DEXTROSE 5% 50 ML IV SCH (13:35)
[2018-08-19] MEDS: ESCITALOPRAM OXALATE 20 MG TAB PO SCH (20:49)
[2018-08-19] MEDS: DIVALPROEX EXTENDED RELEASE 500 MG TAB PO SCH (20:50)
[2018-08-19] MEDS ORDERED: TRAZODONE HCL 50 MG TAB PO PRN (21:52)
--- NOTE | 2018-08-19 23:48 | Hospitalist Progress Note ---
Date of Service August 19, 2018 Assessment & Plan (1) Left lower lobe pneumonia: Necrotizing pneumonia seen on CTA chest on 08/13. Concerning for aspiration; possibly due to intoxication. - treated with Zosyn, stop Vanco due to MRSA swab negative, stop Zithromax change to Rocephin 2gm IV daily with blood cultures positive for Strep pneumo - blood cultures growing Strep pneumo, sensitivities pending consistent with necrotizing pneumonia repeat blood cultures drawn on 08/15/18, these show no growth thus far - Sputum cx shows no growth at this time - DuoNebs standing and PRN - Prednisone for COPD, taper to 40mg daily Breathing better after thoracocenthesis. Awaiting pathology. ordered Mucomyst 5mL TID and percussion therapy with flutter valve Patient is scheduled for bronchoscopy in AM. consult infectious disease for guidance on duration on abx, also whether she should have IV antibiotics on discharge. She has been on antibiotics for 7 days. (2) Parapneumonic effusion: evident on repeat CXR on 08/17 there was small effusion at time of admission thoracocenthesis was completed. (3) COPD (chronic obstructive pulmonary disease): no wheezing on exam continue Prednisone and nebulizers taper Prednisone from 50mg to 40mg daily can likely taper Prednisone quickly on discharge consider down by 10mg every 2 days (4) Severe sepsis: Hypotension and elevated lactate with known source of infection. SIRS 3/4 and qSOFA 2/3 at time of admission BP responded well to IV fluid boluses stop fluids on 08/16 blood culture: Strep pneumo, repeat cultures drawn on 08/15 (5) Alcoholic hepatitis: AST and ALT now normal, no signs of hepatitis (6) ETOH abuse: Per , drinks 1.75L/wk of vodka. Prior detox episodes in our hospital. No seizures or DTs per patient and . EtOH level was 106 on admission. - TAVO protocol, start Gabapentin on 08/15 since she has more symptoms patient is responding well to Gabapentin, no tremors, she is calm - Vitamin repletion - Continue divalproex Ativan PRN (7) Hypokalemia: resolved (8) DVT prophylaxis: SCDs - Low risk per calculator PT/OT ordered Spent 25 minutes in management of patient. May not need antibiotics IV on discharge as she has 7 days of antibiotics Subjective Patient reports feeling well. She wanted to be discharged however she understands she will be having a bronch tomorrow She also reports eating well. Review of Systems All systems reviewed & are unremarkable except as noted in HPI & below Respiratory: + cough, + dyspnea, + dyspnea on exertion, + pain with cough and + sputum production; no hemoptysis Gastrointestinal: no abdominal pain, no nausea, no vomiting and no constipation Physical Exam Vital Signs (Past 24 Hours): Last Vital Signs Temp 36.8 C 08/19/18 23:40 Pulse 79 08/19/18 23:40 Resp 17 08/19/18 23:40 BP 108/63 08/19/18 23:40 Pulse Ox 97 08/19/18 23:40 Physical Exam: Constitutional: WD/WN, vitals as above Eyes: PERRL, conjunctivae normal, anicteric sclerae ENMT: external ear and nose normal, oropharynx normal Neck: trachea midline, no thyromegaly Respiratory: normal respiratory effort and + cough; no respiratory distress Auscultation: + diminished lung sounds (left base); no wheezes Cardiovascular: RRR, no murmur, no edema Gastrointestinal (Abdomen): normal bowel sounds, soft, nontender, no hepatosplenomegaly Musculoskeletal: no cyanosis or clubbing, extremities motor strength 5/5 Skin: no rashes, warm and dry Neurologic: patellar DTR's 2+ bilat, sensation intact and PERRL, EOMI, accommodation nl, no face palsy, no dysarthria Motor/Sensory: + tremor (hands bilaterally, mild) Psychiatric: A+Ox3, euthymic affect Lymphatic: no cervical or axillary lymphadenopathy
[2018-08-20] MEDS: ACETYLCYSTEINE 20% INHAL SOLN ***DISPENSED BY RESP. INH SCH (07:29)
[2018-08-20] MEDS: ALBUT/IPRATROP 3MG/0.5MG NEB 3 ML VIAL NEB SCH ×2 (07:29→11:08)
[2018-08-20] MEDS: BUDESONIDE/FORMOTEROL FUMARATE 80/4.5 60 PUFFS/INHALER INH SCH (08:31)
[2018-08-20] MEDS ORDERED: SODIUM CHLORIDE 0.9% 1000ML 1,000 ML IV SCH (09:00)
[2018-08-20] MEDS ORDERED: OXYMETAZOLINE 0.05% 30 ML BTL ONE (12:21)
--- NOTE | 2018-08-20 12:26 | History & Physical Bridge Note ---
Date of Service August 20, 2018 History & Physical Bridge Note I have examined the patient, reviewed the History & Physical and in the interval since the performance of the History & Physical I have noted the following changes of clinical significance: no changes noted
--- NOTE | 2018-08-20 12:27 | Pre Anesthesia Assessment ---
Date of Service August 20, 2018 Pre Sedation Assessment Vital Signs Temp Pulse Pulse Pulse Resp BP BP 08/20/18 12:20 72 20 117/67 08/20/18 12:15 73 16 115/68 08/20/18 12:10 72 20 115/72 08/20/18 12:05 69 24 115/69 08/20/18 11:08 89 18 08/20/18 07:51 36.7 C 77 16 126/85 08/20/18 07:32 85 18 08/19/18 23:40 36.8 C 79 17 108/63 08/19/18 19:44 83 20 08/19/18 15:45 36.7 C 86 20 109/69 08/19/18 14:23 83 18 Pulse Ox 08/20/18 12:20 98 08/20/18 12:15 98 08/20/18 12:10 97 08/20/18 12:05 96 08/20/18 11:08 95 08/20/18 07:51 90 08/20/18 07:32 97 08/19/18 23:40 97 08/19/18 19:44 93 08/19/18 15:45 92 08/19/18 14:23 93 Cardiovascular RRR, no murmur, no edema + peripheral pulses normal Respiratory normal respiratory effort, lungs clear to auscultation Pre-Sedation Airway Assessment Smoking Status: Current every day smoker Hx Sleep Apnea: No Short, Thick Neck: No Thyromental Distance: > or= 3.5 Finger Breadths Oral Cavity: + WNL Mallampati Class: II ASA: ASA2 NPO Status Date of Last Intake of Fluids: 08/19/18 Time of Last Intake of Fluids: 23:00 Date of Last Intake of Solid Food: 08/19/18 Time of Last Intake of Solid Foods: 23:00 Notes The planned sedation has been discussed with the patient. Informed Consent was obtained. I have identified the patient, determined the appropriateness of sedation and have assessed the patient immediately prior to the procedure. All medicine(s) and interventions are by my order.
[2018-08-20] MEDS ORDERED: LIDOCAINE 4% INH SOLN 4 ML BTL INH SCH (12:30)
--- NOTE | 2018-08-20 12:49 | Post Anesthesia Assessment ---
Date of Service August 20, 2018 Post Sedation Assessment Vital Signs Temp Pulse Pulse Pulse Resp BP BP 08/20/18 12:44 88 24 118/76 08/20/18 12:39 88 24 96/71 L 08/20/18 12:35 88 18 128/81 08/20/18 12:30 74 18 115/73 08/20/18 12:25 69 18 123/77 08/20/18 12:20 72 20 117/67 08/20/18 12:15 73 16 115/68 08/20/18 12:10 72 20 115/72 08/20/18 12:05 69 24 115/69 08/20/18 11:08 89 18 08/20/18 07:51 36.7 C 77 16 126/85 08/20/18 07:32 85 18 08/19/18 23:40 36.8 C 79 17 108/63 08/19/18 19:44 83 20 08/19/18 15:45 36.7 C 86 20 109/69 08/19/18 14:23 83 18 Pulse Ox 08/20/18 12:44 93 08/20/18 12:39 90 08/20/18 12:35 96 08/20/18 12:30 95 08/20/18 12:25 98 08/20/18 12:20 98 08/20/18 12:15 98 08/20/18 12:10 97 08/20/18 12:05 96 08/20/18 11:08 95 08/20/18 07:51 90 08/20/18 07:32 97 08/19/18 23:40 97 08/19/18 19:44 93 08/19/18 15:45 92 08/19/18 14:23 93 Recovery Score Activity: Moves 4 extremities Respiration: Deep Breath/Cough Circulation: +/-20% PreAnes Value Consciousness: Fully Awake Oxygen Saturation: O2 needed for >90% Post Anesthesia Score: 9 Discharge Sedation Level of Care: Fast Track Phase II Post Sedation Plan On clinical assessment, the patient appears to have tolerated the sedation without complications. Patient is recovering as anticipated. Patient will continue to be monitored by nursing and may be discharged when sedation discharge criteria are met per below protocol. Upon Completions of procedure and additional 15 minutes continue every 5 minute vital signs and the P.A.R. score; then discharge to a Phase I or Fast Track to Phase II per the following guidelines: * Discharge Patient to appropriate Phase II area if PAR is 8 or greater or return to pre- procedure baseline. The post - procedure orders will be as directed. * If PAR score is less than 8 or not return to pre-procedure baseline then patient will follow Phase I monitoring till PAR is reached for Phase II. The Phase I may be done in procedure room or may call to secure a Phase I area. * If naloxone or flumazenil are used for reversal, hold in Phase I for continued monitoring from when last reversal dose was given for a minimum of 60 minutes or longer pending the nurse and/or physician discretion of patient condition before discharge to Phase II. Please call the Sedation Physician to re-evaluate and complete post-note for discharge to Phase II area. Do NOT discharge from procedure sedation or Phase 1 until post- sedation evaluation note is complete by procedure /sedation MD Sedation Discharge Instructions to be given to the patient at discharge to home.
--- NOTE | 2018-08-20 12:49 | Post Operative Brief Note ---
Immediate Post Op Note v1 Date of Surgery August 20, 2018 Pre & Post Diagnosis Operation Date: 08/20/18 11:00 Pre-Op Diagnosis: bronchopneumonia Post-Op Diagnosis: bronchopneumonia Procedure Operation Date: 08/20/18 11:00 Actual Procedures p Bronchoscopy (Bilateral) - Wilman Monreal MD Surgeon Wilman Monreal MD Clinical Manager Home Care none Estimated Blood Loss 0 Findings Consistent with Post-Op Diagnosis Multifocal pneumonia Complications none Disposition Accompanied Patient To Recovery: No Overlapping Procedure I was present for: the critical portions of procedure. I was immediately available: during the entire case. Back up surgeon: was not required during procedure.
[2018-08-20] MEDS ORDERED: LEVALBUTEROL HCL 1.25 MG/3 ML NEB NEB STA (12:50)
[2018-08-20] MEDS ORDERED: LIDOCAINE HCL VISCOUS SOLN 2% 15 ML UDC EXT ONE (12:50)
[2018-08-20] MEDS ORDERED: fentaNYL citrate 100 MCG/2 ML VIAL IV ONE (12:50)
[2018-08-20] MEDS ORDERED: MIDAZOLAM HCL 1 MG/ML 2ML VIAL IV ONE (12:52)
[2018-08-20] MEDS ORDERED: LIDOCAINE HCL 2% (LOCAL) INJ 50 ML VIAL INSTIL SCH (13:00)
--- NOTE | 2018-08-20 13:06 | XRay Report ---
XR chest 1V not portable HISTORY: 58 years-old Female bronchoscopy status post bronchoscopy. Follow-up study in a patient wit h reported pneumonia COMPARISON: Chest radiograph 08/19/2017, CTA chest 08/13/2017 TECHNIQUE: Portable AP view of the chest FINDINGS: Cardiac mediastinal and hilar silhouettes are unchanged. Emphysema with chronic interstitial coarseni ng. Scattered calcified granulomata redemonstrated. Small left and trace right pleural effusions with persistent bibasilar opacities. No postprocedural pneumothorax. No overt pulmonary edema. Degenerati ve changes of the shoulders and spine. IMPRESSION: 1. No postprocedural pneumothorax. 2. Persistent bibasilar opacities, left greater than right. 3. Emphysema. 4. Small left and trace right pleural effusions. 5. Prior granulomatous disease. The above report was generated using voice recognition software. It may contain grammatical, syntax o r spelling errors. Electronically signed by: Idris Lawrence M.D. 08/20/2018 1:05 PM
[2018-08-20] MEDS: cefTRIAXone SODIUM 2,000 MG in DEXTROSE 5% 50 ML IV SCH (13:41)
[2018-08-20] MEDS: THIAMINE HCL 100 MG TAB PO SCH (14:28)
[2018-08-20] MEDS: predniSONE 20 MG TAB PO SCH (14:28)
--- NOTE | 2018-08-20 17:47 | Progress Note ---
DATE: 08/20/2018 TIME: 14:00. Chart reviewed and the patient examined. SUBJECTIVE: The patient was seen post bronchoscopy, much less dyspneic than she was immediately post procedure. No endobronchial lesions were seen (see report) with inflammatory mucosal change seen at the takeoff of the lingula orifice and left lower lobe. These regions and lobar as well as segmental bronchi were copiously lavaged with Normosol and the aspirate sent for appropriate studies. I did speak with Dr. Garcia after the procedure and plans were made to discharge the patient this evening on a prednisone taper. A 6-minute ambulation study was to be done on room air to see if she qualifies for O2 supplementation. She was advised to try to curtail and hopefully cease smoking as there is no doubt contributed to this feeling necrotizing pneumonia. Certainly, the possibility of aspiration is there and there may be a significant alcohol consumption history. Strep pneumococcus was grown from the blood on time of admission and the patient was placed on appropriate antibiotic intravenously. The parapneumonic effusion was drained. The repeat ultrasound showed only minimal left pleural fluid residual. We will be happy to follow the patient as in the office and in the clinic in several weeks in followup to make sure that the infiltrate and pneumonitis has significantly cleared.
--- NOTE | 2018-08-20 23:21 | Operative Report ---
DATE OF OPERATION: 08/20/2018 PROCEDURE: Fiberoptic bronchoscopy with and without biopsy. INDICATIONS: Persistent left lingula and left lower lobe consolidation in a patient with severe chronic obstructive pulmonary disease and active smoking history. ANESTHESIA PREOPERATIVELY: None. ANESTHESIA DURING PROCEDURE: IV Versed 5 mg, IV fentanyl 100 mcg, 20 mL 2% Xylocaine spray above and below the cords, 4% viscous Xylocaine intranasally. DESCRIPTION OF PROCEDURE: Moderate conscious sedation was utilized implemented at 1229 and completed at 1242. Fiberoptic bronchoscope was inserted into the left naris with minimal difficulty and passed to the level of the true vocal cords. The cords appeared to approximate normally with phonation without evidence for lesions or paralysis. The area was anesthetized with 2% Xylocaine spray and the scope was introduced into the trachea and right and left tracheobronchial tree. The anirudh was sharp. The right main stem bronchus was explored initially and no endobronchial lesions were seen. Right upper lobe, the apical posterior and anterior segments, bronchus intermedius, right middle lobe, medial lateral segments and all basilar segments right lower lobe were found to be free of endobronchial lesions. A small amount of mucopurulent secretion was lavaged from right lower lobe to clear bronchial crypts and clefts, was seen throughout the right tracheobronchial tree consistent with diagnosis of chronic bronchitis. The scope was withdrawn to the anirudh and entered into the left mainstem bronchus. No endobronchial lesions were seen. Left lower lobe with all basilar segments were free of endobronchial lesions. The lingula subdivision and left upper lobe were explored. Left upper lobe, the apical posterior, anterior segments, lingual subdivision superior and inferior segments showed no endobronchial lesions, but they were copiously lavaged with normosol and the aspirate sent for appropriate studies. A moderate amount of mucopurulent secretion was lavaged until clear, moderately-severe inflammatory mucosal change was seen at the takeoff of the lingula orifice as well as on the left lower lobe orifice. Changes of mucus pitting consistent with chronic bronchitis were seen throughout the left tracheobronchial tree. No brushings or biopsies were attempted. Fluoroscopy was not utilized. The procedure was terminated. The patient did become mildly hypoxemic and mildly bronchospastic and did respond to a nebulizer treatment with Xopenex 1.25 mg and then was transferred back to the medical floor, hemodynamically stable, no signs of respiratory compromise. We will await microbiological and cytologic examination of the bronchial washings. I attest to the content of the Intraoperative Record and any orders documented therein. Any exception s are noted below.
[2018-08-24 20:32] LABS: CMV DNA Qnt Real Time PCR <200 IU/mL (<200); CMV DNA Quant PCR <2.30 log IU/mL (<2.30)
--- NOTE | 2018-08-26 21:25 | Discharge Summary ---
Date of Service August 20, 2018 Admission HPI Per Admitting Provider 58yo F w/ hx of COPD and alcohol abuse who presents for shortness of breath, fevers, and chills and found to have a large left lower lobe pneumonia. Patient reports that she has had respiratory symptoms the entire winter. She has been on 2 rounds of antibiotics and steroids through her PCP. She reports that over the last 2 weeks she has felt increasing shortness of breath, fevers, chills, and sputum production. She also notes that her sputum has gone from clear to white to dark in the last day. Finally she notes a severe frontal headache which began today, and has not improved with [id number] ibuprofen or aspirin. She went to her PCPs office today and was found to be hypoxemic to the 80s on room air, heart rate was 140, and she was hypotensive in the office. She was sent to the emergency department. After 2 L of IV fluid, her heart rate is down to the 90s and her blood pressure is up to 100/50. She is breathing with good O2 saturation on an oxygen mask. Her reports that she drinks 1.75 L of vodka per week. She has had withdrawals in the past, but denies history of DTs or seizures with alcohol withdrawal. Principal Diagnosis left lower lobe pneumonia Discharge Exam Constitutional: WD/WN, vitals as above Eyes: PERRL, conjunctivae normal, anicteric sclerae ENMT: external ear and nose normal, oropharynx normal Neck: trachea midline, no thyromegaly Respiratory: normal respiratory effort and + cough; no respiratory distress Auscultation: + diminished lung sounds (left base); no wheezes Cardiovascular: RRR, no murmur, no edema Gastrointestinal (Abdomen): normal bowel sounds, soft, nontender, no hepatosplenomegaly Musculoskeletal: no cyanosis or clubbing, extremities motor strength 5/5 Skin: no rashes, warm and dry Neurologic: patellar DTR's 2+ bilat, sensation intact and PERRL, EOMI, accommodation nl, no face palsy, no dysarthria Motor/Sensory: + tremor (hands bilaterally, mild) Psychiatric: A+Ox3, euthymic affect Lymphatic: no cervical or axillary lymphadenopathy Discharge Data Allergies Allergy/AdvReac Type Severity Reaction Status Date / Time RACIEL Inhibitors AdvReac Mild COUGH Verified 08/13/18 18:06 naltrexone [From Vivitrol] AdvReac Unknown Unverified 08/13/18 18:06 Consultations 08/13/18 17:48 ED Decision to Admit Stat 08/13/18 20:12 Consult Pulmonology Routine 08/17/18 10:59 Consult Infectious Diseases Routine Procedures Performed Operation Date: 08/20/18 11:00 Actual Procedures p Bronchoscopy (Bilateral) - Wilman Monreal MD Ordered Studies 08/13/18 16:33 CT angio chest PE protocol Stat 08/13/18 16:37 CT abd pelvis IV con only Stat 08/19/18 09:40 US point of care ultrasound Routine 08/20/18 10:01 US point of care ultrasound Routine Hospital Course (1) Left lower lobe pneumonia: Necrotizing pneumonia seen on CTA chest on 08/13. Concerning for aspiration; possibly due to intoxication. - treated with Zosyn, stop Vanco due to MRSA swab negative, stop Zithromax change to Rocephin 2gm IV daily with blood cultures positive for Strep pneumo - blood cultures growing Strep pneumo, sensitivities pending consistent with necrotizing pneumonia repeat blood cultures drawn on 08/15/18, these show no growth thus far - Sputum cx shows no growth at this time - DuoNebs standing and PRN - Prednisone for COPD, taper to 40mg daily Breathing better after thoracocenthesis. Awaiting pathology. ordered Mucomyst 5mL TID and percussion therapy with flutter valve Patient HAD bronchoscopy in AM. consult infectious disease for guidance on duration on abx, also whether she should have IV antibiotics on discharge. She has been on antibiotics for 8 days. I.D. states she completed her course. will conitnue prednisone taper as an outpatient. (2) Parapneumonic effusion: evident on repeat CXR on 08/17 there was small effusion at time of admission thoracocenthesis was completed. (3) COPD (chronic obstructive pulmonary disease): no wheezing on exam continue Prednisone and nebulizers taper Prednisone from 50mg to 40mg daily can likely taper Prednisone quickly on discharge consider down by 10mg every 2 days (4) Severe sepsis: Hypotension and elevated lactate with known source of infection. SIRS 3/4 and qSOFA 2/3 at time of admission BP responded well to IV fluid boluses stop fluids on 08/16 blood culture: Strep pneumo, repeat cultures drawn on 08/15 (5) Alcoholic hepatitis: AST and ALT now normal, no signs of hepatitis (6) ETOH abuse: Per , drinks 1.75L/wk of vodka. Prior detox episodes in our hospital. No seizures or DTs per patient and . EtOH level was 106 on admission. - TAVO protocol, start Gabapentin on 08/15 since she has more symptoms patient is responding well to Gabapentin, no tremors, she is calm - Vitamin repletion - Continue divalproex Ativan PRN (7) Hypokalemia: resolved (8) DVT prophylaxis: SCDs - Low risk per calculator PT/OT ordered Spent 25 minutes in management of patient. May not need antibiotics IV on discharge as she has 7 days of antibiotics Total Time Total Time Spent Total Time Spent (In Minutes): 31 Total Time Includes: Examination of the Patient, Discharge Planning and Medication Reconciliation Discharge Plan Discharge Items Patient Disposition: Home - Self-Care Reason For Visit: PNEUMONIA Discharge Diagnosis: Community acquired pneumonia Discharge Goals: Decrease discomfort and Diagnostic testing Activity: Resume your previous activity Non-emergency contact: Primary Care Provider Call non-emergency contact if: you have any medication questions Follow-up/Referrals: Bentley Childs Jr, DO [Primary Care Provider] - 08/26/18 11:00 am (Please, follow up with Dr. Childs on SaturdayAugust 26 at 11:00 am. *If you need to change this appointment, call the office at [phone].) Diet: Regular Addtl Provider Instructions: Followup wtih PCP in 1-2 weeks and followup with pulmonary in 1-2 weeks. Prescriptions: New prednisone 10 mg tablet 10 mg PO DAILY Qty: 20 RF: 0 thiamine HCl (vitamin B1) [Vitamin B-1] 100 mg Tablet 100 mg PO QAM Qty: 30 RF: 0 albuterol sulfate 90 mcg/actuation HFA aerosol inhaler 2 inha INH Q6H PRN (Reason: shortness of breath or wheezing) Qty: 8 RF: 0 nicotine 21 mg/24 hr patch 24 hour 1 patch TD DAILY Qty: 28 RF: 0 Continued trazodone 100 mg tablet PO DAILY PRN (Reason: Unknown) RF: 0 divalproex 500 mg tablet extended release 24 hr 500 mg PO DAILY RF: 0 dextroamphetamine-amphetamine [Adderall] 5 mg tablet 1.5 mg PO DIRECTED RF: 0 escitalopram oxalate [Lexapro] 20 mg tablet 20 mg PO DAILY RF: 0 Symbicort 80-4.5 mcg/actuation Hfa Aerosol Inhaler 2 puff INHALATION BID RF: 0 Stand-Alone Forms: [facility] Discharge Orders: Discharge Order (Routine); Ordered 08/20/18 Ordered By: Jonh Garcia Admission Data Admit Date/Time: 08/13/18 18:40 Attending Provider: Jonh Garcia Admit Provider: Leonel Urias Primary Care Provider: Bentley Childs Jr Other Providers: Toño Cool ; Freddy Simon Service: Telemetry Other Interventions: Discharge Summary Assessment (RN) Last Done: 08/20/18 15:13 DC Date/Time DO NOT enter until pt leaves facility: 08/20/18 17:51
== END 2018-08-20 17:51 | disposition home or self-care (01) | DRG 853 ==
LOC: ED 15:14 → SUATTDRO 18:40 → 2S 18:40 → 4E 08-16 10:24
DX: J44.1 Chronic obstructive pulmonary disease with (acute) exacerbation; A40.3 Sepsis due to Streptococcus pneumoniae; Z79.899 Other long term (current) drug therapy; J18.1 Lobar pneumonia, unspecified organism; J96.01 Acute respiratory failure with hypoxia; K70.10 Alcoholic hepatitis without ascites; F17.200 Nicotine dependence, unspecified, uncomplicated; R65.20 Severe sepsis without septic shock; E87.6 Hypokalemia; J44.0 Chronic obstructive pulmonary disease with (acute) lower respiratory infection

== ENCOUNTER 2018-11-24 21:38 | Inpatient (IN) ==
--- OUTSIDE RECORDS SUMMARY | 2018-11-24 21:40 | External Medical Summary | Continuity of Care Document ---
:1960 Author Name Vaibhav Caceres, Provider Address Unavailable Unavailable , Care Team Providers Name Role Phone Unavailable Unavailable Unavailable Wilman Barclay DO Unavailable [email or web address] Unavailable Unavailable Unavailable Unavailable Unavailable Problems Shortness of breath (786.05) (R06.02) Depression (311) (F32.9) Chronic obstructive pulmonary disease (496) (J44.9) Tricuspid regurgitation (397.0) (I07.1) Alcoholism (303.90) (F10.20) Cor pulmonale (416.9) (I27.81) Hypertension (401.9) (I10) Anxiety (300.00) (F41.9) Allergies and Adverse Reactions RACIEL Inhibitors (Allergy) Medications CeleXA 40 MG Oral Tablet; TAKE 1 TABLET DAILY. , M.D. Refills: 0 Spiriva HandiHaler 18 MCG Inhalation Capsule , M.D. Refills: 0 Ativan 1 MG Oral Tablet , M.D. Refills: 0 Nicoderm CQ 21 MG/24HR Transdermal Patch 24 Hour , M.D. Refills: 0 Spectazole 1 % CREA , M.D. Refills: 0 Proventil HFA AERS , M.D. Refills: 0 Advair Diskus 250-50 MCG/DOSE Inhalation Aerosol Powder Breath Activated; INHALE 1 PUFFS Twice daily , M.D. Refills: 0 Aldactone 25 MG Oral Tablet; TAKE 1 TABLET TWICE DAILY. , M. D. Refills: 0 Furosemide 20 MG Oral Tablet; TAKE 1 TABLET DAILY. DO Wilman Barclay Start: 09-Apr-2011 Quantity: 30 Refills: 12 Ergocalciferol CAPS , M.D. Refills: 0 cloNIDine HCl - 0.1 MG Oral Tablet , M.D. Refills: 0 Simvastatin 20 MG Oral Tablet , M.D. Refills: 0 Procedures History of Ovarian Cystectomy Status: Co mpleted Immunizations Immunizations not documented Family History Father Family history of Father At Age ___ Status: Active Mother Family history of Mother At Age ___ Status: Active Social History - Smoking Status Smoker. current status unknown Plan of Treatment Planned Observations Planned Goals not documented Results No Known Results Results not documented
[2018-11-24] MEDS ORDERED: ALBUT/IPRATROP 3MG/0.5MG NEB 3 ML VIAL NEB STA (22:21)
[2018-11-24] MEDS ORDERED: SODIUM CHLORIDE 0.9% 1000ML 1,000 ML IV SCH (22:30)
[2018-11-24 23:18] LABS: Basophils # (auto) 0.03 K/uL (0-0.2); Basophils % (auto) 0.6 %; Eosinophils # (auto) 0.07 K/uL (0-0.5); Eosinophils % (auto) 1.5 %; Hematocrit (blood only) 39.7 % (37-47); Hemoglobin 13.1 g/dL (12.0-16.0); Lymphocytes # (auto) 1.94 K/uL (1.2-3.4); Lymphocytes % (auto) 41.4 %; Mean Corpuscular Volume 91.9 fL (80-100); Mean Platelet Volume 9.5 fL (7.4-10.4); Monocytes # (auto) 0.53 K/uL (0.11-0.59); Monocytes % (auto) 11.3 %; Neutrophils # (auto) 2.12 K/uL (1.4-6.5); Neutrophils % (auto) 45.2 %; Platelet Count 132 K/uL (130-400); RDW Coefficient of Variation 13.5 % (11.5-14.5); RDW Standard Deviation 45.3 fL (36.4-46.3); Red Blood Count 4.32 M/uL (4.2-5.4); White Blood Count 4.69 K/uL (4.8-10.8)
[2018-11-24 23:29] LABS: INR 0.9 (0.9-1.1); Partial Thromboplastin Ratio 0.9; Partial Thromboplastin Time 24.4 Seconds (21.0-31.0); Prothrombin Time 9.6 Seconds (9.0-12.0)
[2018-11-24 23:35] LABS: Alanine Aminotransferase 71 U/L (12-78); Albumin Level 3.8 gm/dl (3.4-5.0); Aspartate Aminotransferase 139 U/L (15-37); BUN Creatinine Ratio 15.8 (10-20); Blood Urea Nitrogen 10 mg/dl (7-18); Calcium 9.5 mg/dl (8.5-10.1); Carbon Dioxide 27 mmol/L (21-32); Chloride 97 mmol/L (98-107); Creatinine Clr Calc Pharmacy 82.7 ml/min; Est GFR (African American) 115.6; Est GFR (Non-African American) 99.8; Glucose 82 mg/dl (70-99); Magnesium 1.7 mg/dl (1.8-2.4); Potassium 3.5 mmol/L (3.5-5.1); Sodium 136 mmol/L (136-145)
[2018-11-24 23:45] LABS: Albumin Globulin Ratio 0.9 (0.9-2); Alkaline Phosphatase 216 U/L (45-117); Bilirubin,Total 0.4 mg/dl (0.2-1); Globulin 4.4 gm/dl (2.5-4.0); NT Pro B Type Natriuretic Pept 45 pg/ml (0-900); Total Protein 8.2 gm/dl (6.4-8.2); Troponin I < 0.015 ng/ml (0-0.045)
[2018-11-24 23:56] LABS: Base Excess VBG 1.5 mEq/L; HCO3 VBG 27 mmol/L; PCO2 VBG 48 mmHg (38-50); PO2 VBG 56 mmHg; pH VBG 7.38 (7.36-7.41)
[2018-11-25] MEDS ORDERED: LEVOFLOXACIN/D5W 750 MG/150 ML BAG IV STA
[2018-11-25] MEDS ORDERED: PIPERACILLIN/TAZOBACTAM 4.5 GM/120 ML BAG IV ONE
[2018-11-25] MEDS ORDERED: OPTIRAY 320 125ml IV PRN (00:29)
--- NOTE | 2018-11-25 01:51 | Emergency Department Note ---
History of Present Illness General Chief complaint: Shortness of Breath/Dyspnea Stated complaint: SOB, LUNGS FILLING WITH FLUID Time Seen by Provider: 11/24/18 22:07 History of Present Illness This is a 58-year-old female presenting to the emergency department for evaluation of worsening shortness of breath over the past week. The patient was admitted to this facility roughly 3 months ago for a large left lower lobe pneumonia, where she stayed for 9 days. The patient was septic with strep pneumoniae, and ultimately improved with IV antibiotics. The patient states that she feels similar now to that episode of pneumonia. She is unsure if she has had a fever but has had chills. The patient does not use oxygen throughout the day, but does have a pulse ox at home, that has been reading in the low 80s for the past 2 days. The patient does have an oxygen concentrator at home that she uses to sleep, and she admits to needing to use this throughout the day because of her dyspnea. She does not have distinct chest pain, but has developed a worsening cough the past 48 hours. She does not report recent travel history, abdominal pain, nausea, vomiting, or lower extremity edema. She admits to being an alcoholic, and has been drinking all day, which is normal. She does smoke tobacco at least one pack per day "since I was a little girl". She rates her current discomfort a 4/10. Home Medications Home Medications Medication Instructions Recorded Confirmed Type Symbicort 2 puff INHALATION BID 08/13/18 11/24/18 History dextroamphetamine-amphetamine 7.5 mg PO BID 08/13/18 11/24/18 History [Adderall] divalproex 500 mg PO DAILY 08/13/18 11/24/18 History escitalopram oxalate [Lexapro] 20 mg PO DAILY 08/13/18 11/24/18 History trazodone 0 mg PO DAILY PRN 08/13/18 11/24/18 History albuterol sulfate 2 inha INH Q6H PRN #8 gm 08/20/18 11/24/18 Rx Allergies Allergy/AdvReac Type Severity Reaction Status Date / Time RACIEL Inhibitors AdvReac Mild COUGH Verified 11/24/18 22:37 naltrexone [From Vivitrol] AdvReac Unknown Unverified 11/24/18 22:37 Past Med/Surg History Medical History Tachycardia (Acute 08/17/13) Alcohol withdrawal syndrome (Acute) COPD (chronic obstructive pulmonary disease) (Chronic) Asthma (Chronic) Jaundice (Acute) Leukocytosis (Acute 04/21/14) Liver failure, acute (Acute 04/21/14) ETOH abuse (Resolved 08/17/13) Alcoholic hepatitis (Chronic) Left lower lobe pneumonia Surgical History S/P removal of ovarian cyst Social History Preferred Language: Pakistani Communication Ability: Effective Beliefs That Will Affect Care: None marital status: Current Living Situation: Spouse Feels Safe at Home: Yes Smoking Status: Current every day smoker Tobacco Type: cigarettes Cigarettes Per Day: 30 Hx Alcohol Use: Yes Alcohol type: hard liquor Alcohol Intake Frequency Comment: Drinking heavily for past 8 months, former alcohol dependent Hx Substance Use: No Review of Systems A total of 10 systems reviewed and were otherwise negative Physical Exam Vital Signs Vital Signs - 24 hr 11/24/18 21:38 11/24/18 21:40 11/24/18 21:51 Temperature 36.5 C Temperature Source Oral Sepsis Recent Fever Within 48 Hours No Sepsis New/Unexplained Change in Mental Status No Sepsis Action Taken by Nursing No Action Required Oxygen Flow Rate - Titration Pulse Oximetry Post Tiitration Pulse Rate 114 H 110 H Pulse Rate [Right Ear Lobe] Pulse Rate from SpO2 Sensor 101 H Pulse Rhythm Regular Pulse Strength Normal Respiratory Rate 30 H 25 H Respiratory Effort / Characteristics Spontaneous Accessory Muscle Use Labored Respiratory Depth Normal Respiratory Pattern Regular Blood Pressure 164/113 H Blood Pressure Mean 130 Blood Pressure Position Sitting Pulse Oximetry 93 87 L Oxygen Delivery Method Room Air Room Air Oxygen Flow Rate Fraction of Inspired Oxygen 11/24/18 22:00 11/24/18 22:21 11/24/18 23:00 Temperature Temperature Source Sepsis Recent Fever Within 48 Hours Sepsis New/Unexplained Change in Mental Status Sepsis Action Taken by Nursing Oxygen Flow Rate - Titration Pulse Oximetry Post Tiitration Pulse Rate 103 H 93 H Pulse Rate [Right Ear Lobe] Pulse Rate from SpO2 Sensor 104 H Pulse Rhythm Pulse Strength Respiratory Rate 22 20 Respiratory Effort / Characteristics Respiratory Depth Respiratory Pattern Blood Pressure Blood Pressure Mean Blood Pressure Position Pulse Oximetry 91 90 Oxygen Delivery Method Room Air Oxygen Flow Rate Fraction of Inspired Oxygen 11/24/18 23:02 11/24/18 23:11 11/24/18 23:15 Temperature Temperature Source Sepsis Recent Fever Within 48 Hours Sepsis New/Unexplained Change in Mental Status Sepsis Action Taken by Nursing Oxygen Flow Rate - Titration 3 Pulse Oximetry Post Tiitration 99 Pulse Rate 97 H Pulse Rate [Right Ear Lobe] Pulse Rate from SpO2 Sensor 97 H Pulse Rhythm Pulse Strength Respiratory Rate 23 Respiratory Effort / Characteristics Spontaneous Accessory Muscle Use Short of Breath SOB on Exertion Respiratory Depth Deep Respiratory Pattern Gasping Blood Pressure 134/96 Blood Pressure Mean 108 Blood Pressure Position Pulse Oximetry 88 L 88 L Oxygen Delivery Method Room Air Room Air Oxygen Flow Rate Fraction of Inspired Oxygen 11/24/18 23:18 11/24/18 23:30 11/25/18 00:00 Temperature Temperature Source Sepsis Recent Fever Within 48 Hours Sepsis New/Unexplained Change in Mental Status Sepsis Action Taken by Nursing Oxygen Flow Rate - Titration Pulse Oximetry Post Tiitration Pulse Rate 95 H 94 H Pulse Rate [Right Ear Lobe] 92 H Pulse Rate from SpO2 Sensor 91 H 94 H Pulse Rhythm Pulse Strength Respiratory Rate 20 27 H 21 Respiratory Effort / Characteristics Spontaneous Respiratory Depth Respiratory Pattern Blood Pressure Blood Pressure Mean Blood Pressure Position Pulse Oximetry 99 90 91 Oxygen Delivery Method Nasal Cannula Oxygen Flow Rate 3 Fraction of Inspired Oxygen 3 11/25/18 00:01 11/25/18 00:02 11/25/18 00:30 Temperature Temperature Source Sepsis Recent Fever Within 48 Hours Sepsis New/Unexplained Change in Mental Status Sepsis Action Taken by Nursing Oxygen Flow Rate - Titration Pulse Oximetry Post Tiitration Pulse Rate 94 H 91 H 88 Pulse Rate [Right Ear Lobe] Pulse Rate from SpO2 Sensor 93 H 91 H 89 Pulse Rhythm Pulse Strength Respiratory Rate 28 H 30 H 25 H Respiratory Effort / Characteristics Respiratory Depth Respiratory Pattern Blood Pressure 126/83 136/78 Blood Pressure Mean 97 97 Blood Pressure Position Pulse Oximetry 92 92 95 Oxygen Delivery Method Oxygen Flow Rate Fraction of Inspired Oxygen 11/25/18 00:31 11/25/18 01:00 11/25/18 01:01 Temperature Temperature Source Sepsis Recent Fever Within 48 Hours Sepsis New/Unexplained Change in Mental Status Sepsis Action Taken by Nursing Oxygen Flow Rate - Titration Pulse Oximetry Post Tiitration Pulse Rate 87 83 82 Pulse Rate [Right Ear Lobe] Pulse Rate from SpO2 Sensor 87 83 82 Pulse Rhythm Pulse Strength Respiratory Rate 24 24 18 Respiratory Effort / Characteristics Respiratory Depth Respiratory Pattern Blood Pressure 127/80 Blood Pressure Mean 95 Blood Pressure Position Pulse Oximetry 94 97 96 Oxygen Delivery Method Oxygen Flow Rate Fraction of Inspired Oxygen 11/25/18 01:30 11/25/18 01:31 11/25/18 01:32 Temperature Temperature Source Sepsis Recent Fever Within 48 Hours Sepsis New/Unexplained Change in Mental Status Sepsis Action Taken by Nursing Oxygen Flow Rate - Titration Pulse Oximetry Post Tiitration Pulse Rate 79 89 91 H Pulse Rate [Right Ear Lobe] Pulse Rate from SpO2 Sensor 82 88 91 H Pulse Rhythm Pulse Strength Respiratory Rate 19 21 18 Respiratory Effort / Characteristics Respiratory Depth Respiratory Pattern Blood Pressure 132/72 Blood Pressure Mean 92 Blood Pressure Position Pulse Oximetry 96 100 100 Oxygen Delivery Method Oxygen Flow Rate Fraction of Inspired Oxygen 11/25/18 02:00 11/25/18 02:01 11/25/18 02:30 Temperature Temperature Source Sepsis Recent Fever Within 48 Hours Sepsis New/Unexplained Change in Mental Status Sepsis Action Taken by Nursing Oxygen Flow Rate - Titration Pulse Oximetry Post Tiitration Pulse Rate 90 89 80 Pulse Rate [Right Ear Lobe] Pulse Rate from SpO2 Sensor 90 89 78 Pulse Rhythm Pulse Strength Respiratory Rate 21 22 22 Respiratory Effort / Characteristics Respiratory Depth Respiratory Pattern Blood Pressure 120/68 134/73 Blood Pressure Mean 85 93 Blood Pressure Position Pulse Oximetry 98 98 100 Oxygen Delivery Method Oxygen Flow Rate Fraction of Inspired Oxygen 11/25/18 03:00 11/25/18 03:01 Temperature Temperature Source Sepsis Recent Fever Within 48 Hours Sepsis New/Unexplained Change in Mental Status Sepsis Action Taken by Nursing Oxygen Flow Rate - Titration Pulse Oximetry Post Tiitration Pulse Rate 92 H 87 Pulse Rate [Right Ear Lobe] Pulse Rate from SpO2 Sensor 92 H 88 Pulse Rhythm Pulse Strength Respiratory Rate 22 22 Respiratory Effort / Characteristics Respiratory Depth Respiratory Pattern Blood Pressure 132/85 Blood Pressure Mean 100 Blood Pressure Position Pulse Oximetry 98 97 Oxygen Delivery Method Oxygen Flow Rate Fraction of Inspired Oxygen VITALS: Vitals are noted on the nurse's note and reviewed by myself. Vital signs with tachypnea and hypoxia GENERAL: Chronically ill-appearing female who appears older than stated age. She does smell of alcohol. HEAD: Normocephalic atraumatic. MOUTH: Mucous membranes moist. Tonsils are not enlarged. Pharynx without erythema, blood, or exudate. Uvula midline. Airway patent. NECK: Supple without nuchal rigidity. No lymphadenopathy. No thyromegaly. Cervical spine is nontender. HEART: Regular rate and rhythm without murmurs gallops or rubs. LUNGS: Scattered wheezing and rhonchi throughout without distinct crackles ABDOMEN: Positive normal bowel sounds x 4. Soft, nontender, without masses or organomegaly. No guarding or rebound tenderness. MUSCULOSKELETAL: No muscle atrophy, erythema, or edema noted. Full range of motion in all extremities. NEURO: Patient was alert and oriented to person place and time. CN II through XII grossly intact. SKIN: The skin was without rashes, erythema, edema, or bruising. Capillary refill less than 2 seconds. Course Administered Medications Ioversol (Optiray 320 125ml) 125 ml IV ONCE PRN PRN Reason: Interaction Checking Stop: 11/29/18 00:28 Last Admin: 11/25/18 00:29 Dose: 111 ml Documented by: [id number] Discontinued Medications Albuterol (Duoneb) 3 ml NEB NOW STA Stop: 11/24/18 22:22 Last Admin: 11/24/18 23:18 Dose: 3 ml Documented by: [id number] Sodium Chloride (Nss 1000ml) 1,000 mls @ 999 mls/hr IV .Q1H1M YASMANI Stop: 11/24/18 23:30 Last Infusion: 11/25/18 01:18 Dose: 0 mls/hr Documented by: [id number] Admin: 11/25/18 00:13 Dose: 999 mls/hr Documented by: [id number] Levofloxacin/Dextrose (Levaquin/D5w) 750 mg in 150 mls @ 100 mls/hr IV NOW STA Stop: 11/25/18 01:29 Last Admin: 11/25/18 01:17 Dose: 100 mls/hr Documented by: [id number] Multivitamins 10 ml/ Thiamine HCl 100 mg/ Folic Acid 1 mg/Sodium Chloride 1,011.2 mls @ 1,011.2 mls/hr IV .Q1H YASMANI Stop: 11/25/18 00:59 Last Admin: 11/25/18 01:17 Dose: 1,011.2 mls/hr Documented by: [id number] Piperacillin Sod/Tazobactam Sod (Zosyn) 4.5 gm in 120 mls @ 240 mls/hr IV NOW ONE Stop: 11/25/18 00:29 Last Infusion: 11/25/18 01:18 Dose: 0 mls/hr Documented by: [id number] Admin: 11/25/18 00:32 Dose: 240 mls/hr Documented by: [id number] Medical Decision Making Differential Diagnosis Differential diagnosis: Etiologies such as infections, reactive airway disease, COPD, pneumonia, pleural effusion, pulmonary edema, ARDS, pneumothorax, CHF, cardiac ischemia, cardiac tamponade, dysrhythmia, anemia, pulmonary embolism, musculoskeletal, gastrointestinal process, as well as others were entertained. Laboratory Data Result diagrams: 11/24/18 23:08 11/24/18 23:08 Lab Results 11/24/18 11/24/18 11/24/18 Range/Units 23:08 23:08 23:08 WBC 4.69 L (4.8-10.8) K/uL RBC 4.32 (4.2-5.4) M/uL Hgb 13.1 (12.0-16.0) g/dL Hct 39.7 (37-47) % MCV 91.9 (80-100) fL MCH 30.3 (25-34) pg MCHC 33.0 (32-36) g/dL RDW Std Deviation 45.3 (36.4-46.3) fL RDW Coeff of Don 13.5 (11.5-14.5) % Plt Count 132 (130-400) K/uL MPV 9.5 (7.4-10.4) fL Immature Gran % (Auto) 0.0 % Neut % (Auto) 45.2 % Lymph % (Auto) 41.4 % Prentiss % (Auto) 11.3 % Eos % (Auto) 1.5 % Baso % (Auto) 0.6 % Immature Gran # (Auto) 0.00 (0.00-0.02) K/uL Neut # (Auto) 2.12 (1.4-6.5) K/uL Lymph # (Auto) 1.94 (1.2-3.4) K/uL Prentiss # (Auto) 0.53 (0.11-0.59) K/uL Eos # (Auto) 0.07 (0-0.5) K/uL Baso # (Auto) 0.03 (0-0.2) K/uL PT (9.0-12.0) Seconds INR (0.9-1.1) APTT (21.0-31.0) Seconds PTT Ratio VBG pH (7.36-7.41) VBG pCO2 (38-50) mmHg VBG pO2 mmHg VBG HCO3 mmol/L VBG O2 Saturation % VBG Base Excess mEq/L Sodium 136 (136-145) mmol/L Potassium 3.5 (3.5-5.1) mmol/L Chloride 97 L (98-107) mmol/L Carbon Dioxide 27 (21-32) mmol/L Anion Gap 12.0 H (3-11) BUN 10 (7-18) mg/dl Creatinine 0.60 (0.6-1.2) mg/dl Est Cr Clr Drug Dosing 82.7 ml/min Est GFR ( Amer) 115.6 Est GFR (Non-Af Amer) 99.8 BUN/Creatinine Ratio 15.8 (10-20) Glucose 82 (70-99) mg/dl Lactate 3.2 H* (0.4-2.0) mmol/L Calcium 9.5 (8.5-10.1) mg/dl Magnesium 1.7 L (1.8-2.4) mg/dl Total Bilirubin 0.4 (0.2-1) mg/dl AST 139 H (15-37) U/L ALT 71 (12-78) U/L Alkaline Phosphatase 216 H (45-117) U/L Troponin I < 0.015 (0-0.045) ng/ml NT-Pro-B Natriuret Pep 45 (0-900) pg/ml Total Protein 8.2 (6.4-8.2) gm/dl Albumin 3.8 (3.4-5.0) gm/dl Globulin 4.4 H (2.5-4.0) gm/dl Albumin/Globulin Ratio 0.9 (0.9-2) Lipase 269 (73-393) U/L Procalcitonin (0-0.5) ng/ml TSH 1.970 (0.300-4.500) uIu/ml Ethyl Alcohol mg/dL (0-3) mg/dl 11/24/18 11/24/18 11/24/18 Range/Units 23:08 23:08 23:33 WBC (4.8-10.8) K/uL RBC (4.2-5.4) M/uL Hgb (12.0-16.0) g/dL Hct (37-47) % MCV (80-100) fL MCH (25-34) pg MCHC (32-36) g/dL RDW Std Deviation (36.4-46.3) fL RDW Coeff of Don (11.5-14.5) % Plt Count (130-400) K/uL MPV (7.4-10.4) fL Immature Gran % (Auto) % Neut % (Auto) % Lymph % (Auto) % Prentiss % (Auto) % Eos % (Auto) % Baso % (Auto) % Immature Gran # (Auto) (0.00-0.02) K/uL Neut # (Auto) (1.4-6.5) K/uL Lymph # (Auto) (1.2-3.4) K/uL Prentiss # (Auto) (0.11-0.59) K/uL Eos # (Auto) (0-0.5) K/uL Baso # (Auto) (0-0.2) K/uL PT 9.6 (9.0-12.0) Seconds INR 0.9 (0.9-1.1) APTT 24.4 (21.0-31.0) Seconds PTT Ratio 0.9 VBG pH (7.36-7.41) VBG pCO2 (38-50) mmHg VBG pO2 mmHg VBG HCO3 mmol/L VBG O2 Saturation % VBG Base Excess mEq/L Sodium (136-145) mmol/L Potassium (3.5-5.1) mmol/L Chloride (98-107) mmol/L Carbon Dioxide (21-32) mmol/L Anion Gap (3-11) BUN (7-18) mg/dl Creatinine (0.6-1.2) mg/dl Est Cr Clr Drug Dosing ml/min Est GFR ( Amer) Est GFR (Non-Af Amer) BUN/Creatinine Ratio (10-20) Glucose (70-99) mg/dl Lactate (0.4-2.0) mmol/L Calcium (8.5-10.1) mg/dl Magnesium (1.8-2.4) mg/dl Total Bilirubin (0.2-1) mg/dl AST (15-37) U/L ALT (12-78) U/L Alkaline Phosphatase (45-117) U/L Troponin I (0-0.045) ng/ml NT-Pro-B Natriuret Pep (0-900) pg/ml Total Protein (6.4-8.2) gm/dl Albumin (3.4-5.0) gm/dl Globulin (2.5-4.0) gm/dl Albumin/Globulin Ratio (0.9-2) Lipase (73-393) U/L Procalcitonin < 0.05 (0-0.5) ng/ml TSH (0.300-4.500) uIu/ml Ethyl Alcohol mg/dL 295.7 H (0-3) mg/dl 11/24/18 Range/Units 23:33 WBC (4.8-10.8) K/uL RBC (4.2-5.4) M/uL Hgb (12.0-16.0) g/dL Hct (37-47) % MCV (80-100) fL MCH (25-34) pg MCHC (32-36) g/dL RDW Std Deviation (36.4-46.3) fL RDW Coeff of Dno (11.5-14.5) % Plt Count (130-400) K/uL MPV (7.4-10.4) fL Immature Gran % (Auto) % Neut % (Auto) % Lymph % (Auto) % Prentiss % (Auto) % Eos % (Auto) % Baso % (Auto) % Immature Gran # (Auto) (0.00-0.02) K/uL Neut # (Auto) (1.4-6.5) K/uL Lymph # (Auto) (1.2-3.4) K/uL Prentiss # (Auto) (0.11-0.59) K/uL Eos # (Auto) (0-0.5) K/uL Baso # (Auto) (0-0.2) K/uL PT (9.0-12.0) Seconds INR (0.9-1.1) APTT (21.0-31.0) Seconds PTT Ratio VBG pH 7.38 (7.36-7.41) VBG pCO2 48 (38-50) mmHg VBG pO2 56 mmHg VBG HCO3 27 mmol/L VBG O2 Saturation 85.0 % VBG Base Excess 1.5 mEq/L Sodium (136-145) mmol/L Potassium (3.5-5.1) mmol/L Chloride (98-107) mmol/L Carbon Dioxide (21-32) mmol/L Anion Gap (3-11) BUN (7-18) mg/dl Creatinine (0.6-1.2) mg/dl Est Cr Clr Drug Dosing ml/min Est GFR ( Amer) Est GFR (Non-Af Amer) BUN/Creatinine Ratio (10-20) Glucose (70-99) mg/dl Lactate (0.4-2.0) mmol/L Calcium (8.5-10.1) mg/dl Magnesium (1.8-2.4) mg/dl Total Bilirubin (0.2-1) mg/dl AST (15-37) U/L ALT (12-78) U/L Alkaline Phosphatase (45-117) U/L Troponin I (0-0.045) ng/ml NT-Pro-B Natriuret Pep (0-900) pg/ml Total Protein (6.4-8.2) gm/dl Albumin (3.4-5.0) gm/dl Globulin (2.5-4.0) gm/dl Albumin/Globulin Ratio (0.9-2) Lipase (73-393) U/L Procalcitonin (0-0.5) ng/ml TSH (0.300-4.500) uIu/ml Ethyl Alcohol mg/dL (0-3) mg/dl Imaging Data Radiologist's Impression: Preliminary Findings Only See Final Report For Complete Findings CTA CHEST: Comparison /3 Mild artifact. No evidence for PE. Hiatal hernia again noted. Small nodes, decreased in size compared to the previous. Emphysematous changes again noted. Improved aeration compared to the previous. No pleural effusions on the current examination. Secretions with some airways, example trachea and anirudh/left mainstem bronchus. There is some persistent lung opacity most confluent in the lingula. A component of mild pneumonia, possibly residual from the previous exam not excluded, though aeration is significantly improved compared to the prior with no significant consolidation seen in the left lower lobe on current examination. Emphysema, calcified granulomas, similar-appearing micronodules without definite calcification, prominent size liver with suspected hepatic steatosis, adrenal thickening and other nonemergent/incidental findings. See final report. MDM Narrative Physical exam and history were performed. Nursing notes, EMR, and Medication List were personally reviewed. Patient appears to have shortness of breath worsening over the past several days. On my arrival to the room the patient does appear short of breath. She does drop to 84 to 85% on room air with simple conversation. She is mildly tachycardic but afebrile. IV access was established and labs were obtained. The patient was given a DuoNeb and started on nasal cannula oxygen. Blood cultures were gathered. The patient's blood work is as above and was reviewed. She does not have a significantly elevated white blood cell count, gross anemia, bandemia, or s ignificant electrolyte imbalance. INR is 0.9. Lactic acid is elevated at 3.2. Magnesium is 1.7. Troponin x1 is negative. Procalcitonin is negative. Blood cultures are pending. Alcohol is 295 and she does not appear in withdrawal. The patient was given a banana bag. The case was discussed with my attending physician, Dr. Riggins, and following review of her previous cultures from a few months ago we did start her on Levaquin and Zosyn IV. The patient chest x-ray does not appear with gross infection as it has in the past, however it is also somewhat atypical appearing. Because of her symptoms and ill appearance, CT scan of the chest was performed. CT scan does not show acute PE, but does suggest possible persistent pneumonia. Overall the patient does not appear well for discharge home. I suspect that she does have a blossoming pneumonia contributing to her feeling poorly. The case was discussed with the on-call hospitalist, who agreed to evaluate the patient here in the department. Please see their dictation for further patient course, plan, and disposition The chart was completed utilizing [employer] Voice Recognition Software. Grammatical errors, random word insertions, pronoun errors, and incomplete sentences are an occasional consequence of this system due to software limitations, ambient noise, and hardware issues. Any formal questions or concerns about the content, text, or information contained within the body of this dictation should be directly addressed to the provider for clarification. . Impression & Plan Pneumonia, Shortness of breath, Alcohol use with intoxication Discharge Plan Visit Data Chief Complaint: Shortness of Breath/Dyspnea Stated Complaint: SOB, LUNGS FILLING WITH FLUID ED Provider: Nico Riggins ED Midlevel Provider: Wily Rivera Discharge Problem: Pneumonia, Shortness of breath, Alcohol use with intoxication Discharge Problem: Pneumonia Qualifiers: Pneumonia type: due to unspecified organism Laterality: unspecified laterality Lung location: unspecified part of lung Qualified Code(s): J18.9 - Pneumonia, unspecified organism
--- NOTE | 2018-11-25 03:53 | History & Physical Report ---
Date of Service November 25, 2018 Assessment & Plan (1) Pneumonia: 58 y/o F Hx ETOH abuse, COPD, smoker, depression. Presents with progressive SOB and a productive cough for 2-3 weeks. The pt was hypoxic on arrival to the ER, requiring 3L 02. Initial labs are notable for an elevated lactic acid, low magnesium and an alcohol level of 247. A CT of the chest shows lingular and left lower lobe opacities. On 08/13/18 she was admitted to the ICU with strep pneumonia and severe sepsis. It is not clear how much of the current findings on imaging are residual. 1) PNM - as her symptoms began lesss than 3 month out from her critical strep pnm admission, we will place her on Vanc, Zosyn, Doxy penidng culture results. 2) COPD exacerbation - 02 protocol, scheduled nebs, IV steroids provided. 3) ETOH intoxication - expects to withdraw - IVF, thiamine, folic - ringers + glu, lorazepam 4) Depression - cont Depakote, Lexapro 5) Has not shown initerest in cessation Full code - SCDs Total time for this admit including review of labs, meds, imaging, records - discussion with pt and ER attending - 38 min (2) Shortness of breath: (3) Alcohol use with intoxication: History of Present Illness Chief Complaint: SOB, productive cough Primary Care Provider: Bentley Childs Jr, DO 58 y/o F Hx ETOH abuse, COPD, smoker, depression. Presents with progressive SOB and a productive cough for 2-3 weeks. The pt was hypoxic on arrival to the ER, requiring 3L 02. Initial labs are notable for an elevated lactic acid, low magnesium and an alcohol level of 247. A CT of the chest shows lingular and left lower lobe opacities. On 08/13/18 she was admitted to the ICU with strep pneumonia and severe sepsis. It is not clear how much of the current findings on imaging are residual. PMH: 1) ETOH abuse 2) COPD 3) Depression 4) Smoker 5) Alcoholic hepatitis 6) Strep pneumonia Surgical: 1) Ovarian cyst 2) Surgery for retained placenta Social: Smokes a pack of cigarettes daily. Drinks Vodka daily - 2L/wk reported previously Family: Father due to an DC Mother at age 94 Allergies Allergy/AdvReac Type Severity Reaction Status Date / Time RACIEL Inhibitors AdvReac Mild COUGH Verified 11/24/18 22:37 naltrexone [From Vivitrol] AdvReac Unknown Unverified 11/24/18 22:37 Home Medications Home Medications Medication Instructions Recorded Confirmed Type Symbicort 2 puff INHALATION BID 08/13/18 11/24/18 History dextroamphetamine-amphetamine 7.5 mg PO BID 08/13/18 11/24/18 History [Adderall] divalproex 500 mg PO DAILY 08/13/18 11/24/18 History escitalopram oxalate [Lexapro] 20 mg PO DAILY 08/13/18 11/24/18 History trazodone 0 mg PO DAILY PRN 08/13/18 11/24/18 History albuterol sulfate 2 inha INH Q6H PRN #8 gm 08/20/18 11/24/18 Rx Past Med/Surg History Medical History Tachycardia (Acute 08/17/13) Alcohol withdrawal syndrome (Acute) COPD (chronic obstructive pulmonary disease) (Chronic) Asthma (Chronic) Jaundice (Acute) Leukocytosis (Acute 04/21/14) Liver failure, acute (Acute 04/21/14) ETOH abuse (Resolved 08/17/13) Alcoholic hepatitis (Chronic) Left lower lobe pneumonia Surgical History S/P removal of ovarian cyst Social History Preferred Language: [place] Communication Ability: Effective Beliefs That Will Affect Care: None marital status: Current Living Situation: Spouse Feels Safe at Home: Yes Smoking Status: Current every day smoker Tobacco Type: cigarettes Cigarettes Per Day: 30 Hx Alcohol Use: Yes Alcohol type: hard liquor Alcohol Intake Frequency Comment: Drinking heavily for past 8 months, former alcohol dependent Hx Substance Use: No Review of Systems Review of Systems: Gen: Denies fevers, night sweats, rigors, fatigue, malaise, weight loss/gain ENT: Denies congestion, throat pain, hearing loss Eyes: Denies acute visual changes CV: Denies CP, palpitations Pulmonary: SOB and productive cough x 2-3 weeks GI: Denies N/V, diarrhea, constipation Neuro: Denies acute or unilateral weakness, acute gait impairment, headache or acute visual changes Musculoskeletal: Denies joint pain, inflammation Endocrine: Denies polydipsia, polyuria Skin: Denies acute rashes or ulcers Physical Exam Physical Exam: General: AAO x 3, no distress ENT: No erythema or exudates, no thrush Eyes: ALEXIS, EOMI Head and neck: Normocephalic, atraumatic, No JVD, neck is supple. Chest/heart: Nontender, S1,2, RRR, no murmurs, no gallops Lungs: Very poor BL air movement - cannot discern crackles or wheezing Abdomen: Nontender, nondistended, BS+ Neuro: AAO x 3, speech is clear, no unilateral weakness or loss of sensation, coordination intact Musculoskeletal: No joint inflammation, muscle tenderness, FROM Skin: No acute rashes or ulcers Extremities: No clubbing, cyanosis, edema Results & Data Vital Signs (Past 12 Hours) Vital Signs Temp Pulse Pulse Resp BP Pulse Ox 11/25/18 02:30 80 22 134/73 100 11/25/18 02:01 89 22 98 11/25/18 02:00 90 21 120/68 98 11/25/18 01:32 91 H 18 100 11/25/18 01:31 89 21 132/72 100 11/25/18 01:30 79 19 96 11/25/18 01:01 82 18 96 11/25/18 01:00 83 24 127/80 97 11/25/18 00:31 87 24 94 11/25/18 00:30 88 25 H 136/78 95 11/25/18 00:02 91 H 30 H 92 11/25/18 00:01 94 H 28 H 126/83 92 11/25/18 00:00 94 H 21 91 11/24/18 23:30 95 H 27 H 90 11/24/18 23:18 92 H 20 99 11/24/18 23:15 88 L 11/24/18 23:11 97 H 23 134/96 88 L 11/24/18 23:00 93 H 20 11/24/18 22:21 90 11/24/18 22:00 103 H 22 91 11/24/18 21:51 110 H 25 H 87 L 11/24/18 21:40 97.7 F 114 H 30 H 164/[address] H [address] chest: opacities in the lingula and LLL EKG: NSR PG Care Time/CCT Total # of Minutes Spent Total Time Spent with Patient: Total time spent is greater than 50% in coordination of care (as documented) at patient's floor/unit and/or counseling patient: (1) Pneumonia Laterality: unspecified laterality Lung location: unspecified part of lung Pneumonia type: due to unspecified organism Qualified Code(s): J18.9 - Pneumonia, unspecified organism
[2018-11-25] MEDS ORDERED: PIPERACILL/TAZOBAC CONSULT ACTIVE PRN ×3 (04:15→04:48)
[2018-11-25] MEDS ORDERED: ALBUTEROL 0.083% NEBU SOLN 3 ML VIAL NEB PRN (04:15)
[2018-11-25] MEDS ORDERED: MAGNESIUM SULFATE / D5W 1 GM/100 ML BAG IV ONE (04:17)
[2018-11-25] MEDS ORDERED: ALUMINUM/MAGNESIUM SUSP 30 ML UDC PO PRN (04:48)
[2018-11-25] MEDS ORDERED: POLYETHYLENE (MIRALAX) 17 GM PACK PO PRN (04:48)
[2018-11-25] MEDS ORDERED: MAGNESIUM HYDROXIDE SUSP 30 ML UDC PO PRN (04:48)
[2018-11-25] MEDS ORDERED: ONDANSETRON INJ 2 MG/ML 2 ML VIAL IV PRN (04:48)
[2018-11-25] MEDS ORDERED: LORazepam 2 MG/4 ML VIAL IV PRN (04:48)
[2018-11-25] MEDS ORDERED: PIPERACILLIN/TAZOBACTAM 3.375 GM in DEXTROSE 5% 100 ML IV SCH (04:48)
[2018-11-25] MEDS ORDERED: ACETAMINOPHEN 325 MG TAB PO PRN (04:48)
[2018-11-25] MEDS ORDERED: VANCOMYCIN CONSULT ACTIVE PRN (04:48)
[2018-11-25] MEDS ORDERED: LORazepam 1 MG/2 ML VIAL IV PRN (04:48)
[2018-11-25] MEDS ORDERED: VANCOMYCIN HCL 1,500 MG in SODIUM CHLORIDE 0.9% 500 ML IV ONE (05:00)
[2018-11-25] MEDS: methylPREDNISolone 60 MG in SYRINGE 0 ML IV SCH ×4 (05:43→22:16)
[2018-11-25] MEDS: PIPERACILLIN/TAZOBACTAM 3.375 GM in DEXTROSE 5% 100 ML IV SCH ×3 (06:01→19:51)
[2018-11-25] MEDS: D5W AND LACTATED RINGERS 1,000 ML IV SCH ×2 (06:13→12:00)
[2018-11-25 06:46] LABS: Appearance Urine Clear (Clear); Bacteria Urine Automated 1+ (Negative); Bilirubin Urine Negative (Negative); Blood Urine Negative (Negative); Color Urine Yellow; Epithelial Cell Urine Auto >30 /lpf (0-5); Glucose Urine UA Negative (Negative); Ketones Urine Negative (Negative); Leukocyte Esterase Urine Negative (Negative); Nitrite Urine Negative (Negative); Protein Urine Trace (Negative); RBC Urine Automated 0-4 /hpf (0-4); Specific Gravity Urine > 1.045 (1.000-1.030); Urobilinogen Urine Negative (Negative); pH Urine 5.5 (4.5-7.5)
--- NOTE | 2018-11-25 06:48 | CT Scan Report ---
CT ANGIOGRAM OF THE CHEST CLINICAL HISTORY: Shortness of breath COUGH. POSSIBLE PULMONARY EMBOLISM. COMPARISON STUDY: August 13, 2018 TECHNIQUE: Following the IV administration of 111 mL of Optiray-320, CT angiogram of the thorax was p erformed from the thoracic inlet to the lung bases utilizing the pulmonary embolus protocol. Images a re reviewed in the axial, sagittal, and coronal planes. IV contrast was administered without complica tion. MIP imaging was performed. A dose lowering technique was utilized adhering to the principles o f ALARA. CT DOSE: 257.06 mGy.cm FINDINGS: There is hepatic steatosis. There is a moderate to large hiatal hernia. No pathologically enlarged axillary mediastinal or hilar lymph nodes were visualized. There was no evidence of thoracic aortic dilatation. There were no pulmonary artery filling defects to indicate acute pulmonary embolism. There are no pleural effusions. There is pulmonary emphysema. There are multiple scattered granulomatous calcifications. There are ai rspace opacities within the lingula, likely atelectatic. There are small amount of secretions within the trachea and left mainstem bronchus IMPRESSION: 1. No evidence of acute pulmonary embolism 2. Small amount of secretions within the trachea and left mainstem bronchus 3. Emphysema 4. Multiple calcified granulomas 5. Lingular airspace opacities, likely atelectatic 6. Hiatal hernia 7. Hepatic steatosis Electronically signed by: Dariel Rangel M.D. 11/25/2018 6:46 AM
[2018-11-25 07:03] LABS: Amphetamines+Metham, Urine Pos (Neg); Barbiturates, Urine Neg (Neg); Benzodiazepine, Urine Neg (Neg); Cocaine, Urine Neg (Neg); MDMA (Ecstacy), Urine Neg (Neg); Methadone, Urine Neg (Neg); Opiate, Urine Neg (Neg); Phencyclidine, Urine Neg (Neg)
--- NOTE | 2018-11-25 07:13 | XRay Report ---
XR chest 2V routine CLINICAL HISTORY: SOB. Cough. COMPARISON STUDY: 08/20/2018 FINDINGS: There is radiographic evidence of emphysema. The patient is hyperinflated. There are scatte red postinflammatory granulomas present. There is no acute parenchymal consolidation. There is no dinorah lure. There are no pleural effusions. There is a retrocardiac opacity consistent with a hiatal hernia . Left infrahilar opacities, likely represent atelectasis versus residual pneumonitis. [ IMPRESSION: Emphysema and postinflammatory changes. Left infrahilar opacities, statistically atelecta tic Electronically signed by: Dariel Rangel M.D. 11/25/2018 7:11 AM
[2018-11-25] MEDS: ALBUT/IPRATROP 3MG/0.5MG NEB 3 ML VIAL NEB SCH ×4 (07:23→19:04)
[2018-11-25 08:17] LABS: Creatinine Clr Calc Pharmacy 81.2 ml/min; Est GFR (African American) 114.4; Est GFR (Non-African American) 98.7
[2018-11-25] MEDS: DOXYCYCLINE HYCLATE 100 MG in DEXTROSE 5% 100 ML IV SCH ×2 (08:44→19:51)
[2018-11-25] MEDS: DIVALPROEX EXTENDED RELEASE 500 MG TAB PO SCH (08:45)
[2018-11-25] MEDS: THIAMINE HCL 100 MG in SYRINGE 9 ML IV SCH (08:45)
[2018-11-25] MEDS: ESCITALOPRAM OXALATE 20 MG TAB PO SCH (08:45)
[2018-11-25] MEDS: FOLIC ACID 1 MG TAB PO SCH (08:47)
--- NOTE | 2018-11-25 08:56 | Family Medicine Progress Note ---
Date of Service November 25, 2018 Assessment & Plan (1) Pneumonia: 58 y/o F Hx ETOH abuse, COPD, smoker, depression. Presents with progressive SOB and a productive cough for 2-3 weeks. The pt was hypoxic on arrival to the ER, requiring 3L 02. Initial labs are notable for an elevated lactic acid, low magnesium and an alcohol level of 247. A CT of the chest shows lingular and left lower lobe opacities. On 08/13/18 she was admitted to the ICU with strep pneumonia and severe sepsis. It is not clear how much of the current findings on imaging are residual. #)Pneumonia. Patient recently admitted to the ICU with strep pneumonia and severe sepsis approximately 3 months ago. Initially in the ED she was given Vanco Zosyn, doxy pending culture results and out of concern for H CAP MRSA results came back negative DC'd Vanco is doxy will cover MRSA as well. Continue Zosyn and doxy pending culture results out of concern for H CAP Trend daily CBC Follow-up cultures #) COPD exacerbation Patient is a history of COPD not on oxygen at home. Continue O2 protocol Continue scheduled nebs Continue IV methylprednisolone 60 mgs every 6 hours plan to taper tomorrow versus quick pulse dose depending on clinical improvement #) Alcohol withdrawal Patient is a history of chronic alcoholism, has been admitted to [facility] for this several times before. Patient does appear motivated to change this time. Will continue counseling over the coming week Placed on AW SS protocol, with gabapentin, and PRN Ativan for severe withdrawal symptoms Provided multivitamin with thiamine folic acid Monitor for signs and symptoms of seizure development Continue positive reinforcement and encouragement #) Depression Continue home meds Diet: Normal Full code DVT PPX lovenox Dispo: medsurg (2) Shortness of breath: (3) Alcohol use with intoxication: Supervising Physician Co-Signing Physician Notes Patient seen and examined independently of Dr. Hernandez. Agree with history, exam findings, assessment and plan of care as outlined. In brief, Ms Aguirre is a 58 year old female with hx of recent pneumonia admission, COPD, ETOH abuse with hx of DTs, depression admitted for pneumonia with new O2 requirement. Tremulous today. At times tearful. Breathing comfortably on room air. Crackles in the left lower lobe. Minimal end expiratory wheeze, fair air movement throughout. 1. pneumonia with hypoxia - no longer needs supplemental O2 - continue IV vanc, zosyn - CCM 2. COPD exacerbation - continue doxy, methylpred, and duonebs 3. ETOH withdrawal with prior hx of DTs - AWAS protocol. gabapentin, ativan PRN. - careful monitoring of vital signs, CCM - not interested in going to rehab for ETOH after hospital stay. CM consult for assistance with other community resources to help her maintain her sobriety following discharge. Dispo: clinical improvement Subjective Patient laying in bed this morning in no acute distress. Patient reports doing well overnight, reporting increasing withdrawal symptoms as she gets further and further away from her alcohol use. Patient reports significant improvement in her breathing. I question the patient about what where the symptoms of brought her into the hospital. She was unable to recall what these were however was aware that she was in the hospital for pneumonia and that she was not feeling very well yesterday. Patient's breathing is increased significantly, she was shaky for me. Patient reports tolerating her diet, voiding, stooling, sleeping. Patient did endorse a strong desire to stop drinking alcohol. She stated "I need to change or I will "we had us a quick discussion regarding strategies and think she is tried the past and potential strategies for the future. Unfortunately her current office the patient had to go to the bathroom. We will continue counseling over the course of her admission All questions answered no acute concerns Physical Exam Physical Exam: General: Female who appears older than stated age, shaky, tremor, and the beginning of alcohol withdrawal HEENT: Normocephalic atraumatic Neck: Normal to visual inspection Cardiac: Regular rate and rhythm, I did not appreciate any murmurs rubs or gallops, normal S1, normal S2, negative calf tenderness Respiratory: Restricted air movement bilaterally, coarse breath sounds, rhonchi clear with coughing GI: Obese abdomen, soft, nontender, nondistended MSK: Moves all extremities no current complaints Neuro: Alert and oriented x4 Psych: calm, cooperative, appears motivated to change Results & Data Vital Signs (Past 12 Hours) Vital Signs Temp Pulse Pulse Pulse Pulse Resp BP 11/25/18 07:36 37.0 C 91 H 20 11/25/18 07:25 92 H 18 11/25/18 05:11 91 H 11/25/18 04:48 11/25/18 04:25 36.7 C 84 22 11/25/18 04:01 90 23 11/25/18 04:00 86 16 126/70 11/25/18 03:31 91 H 22 11/25/18 03:30 94 H 16 110/63 11/25/18 03:01 87 22 11/25/18 03:00 92 H 22 132/85 11/25/18 02:30 80 22 134/73 11/25/18 02:01 89 22 11/25/18 02:00 90 21 120/68 11/25/18 01:32 91 H 18 11/25/18 01:31 89 21 132/72 11/25/18 01:30 79 19 11/25/18 01:01 82 18 11/25/18 01:00 83 24 127/80 11/25/18 00:31 87 24 11/25/18 00:30 88 25 H 136/78 11/25/18 00:02 91 H 30 H 11/25/18 00:01 94 H 28 H 126/83 11/25/18 00:00 94 H 21 11/24/18 23:30 95 H 27 H 11/24/18 23:18 92 H 20 11/24/18 23:15 11/24/18 23:11 97 H 23 134/96 11/24/18 23:00 93 H 20 11/24/18 22:21 11/24/18 22:00 103 H 22 11/24/18 21:51 110 H 25 H 11/24/18 21:40 36.5 C 114 H 30 H 164/113 H BP Pulse Ox Pulse Ox 11/25/18 07:36 155/99 H 95 11/25/18 07:25 95 11/25/18 05:11 11/25/18 04:48 94 11/25/18 04:25 139/83 94 11/25/18 04:01 95 11/25/18 04:00 93 11/25/18 03:31 92 11/25/18 03:30 93 11/25/18 03:01 97 11/25/18 03:00 98 11/25/18 02:30 100 11/25/18 02:01 98 11/25/18 02:00 98 11/25/18 01:32 100 11/25/18 01:31 100 11/25/18 01:30 96 11/25/18 01:01 96 11/25/18 01:00 97 11/25/18 00:31 94 11/25/18 00:30 95 11/25/18 00:02 92 11/25/18 00:01 92 11/25/18 00:00 91 11/24/18 23:30 90 11/24/18 23:18 99 11/24/18 23:15 88 L 11/24/18 23:11 88 L 11/24/18 23:00 11/24/18 22:21 90 11/24/18 22:00 91 11/24/18 21:51 87 L 11/24/18 21:40 93 Laboratory Results 11/25/18 11/25/18 11/24/18 Range/Units 05:24 05:24 23:33 WBC (4.8-10.8) K/uL RBC (4.2-5.4) M/uL Hgb (12.0-16.0) g/dL Hct (37-47) % MCV (80-100) fL MCH (25-34) pg MCHC (32-36) g/dL RDW Std Deviation (36.4-46.3) fL RDW Coeff of Don (11.5-14.5) % Plt Count (130-400) K/uL MPV (7.4-10.4) fL Immature Gran % (Auto) % Neut % (Auto) % Lymph % (Auto) % [place] % (Auto) % Eos % (Auto) % Baso % (Auto) % Immature Gran # (Auto) (0.00-0.02) K/uL Neut # (Auto) (1.4-6.5) K/uL Lymph # (Auto) (1.2-3.4) K/uL [place] # (Auto) (0.11-0.59) K/uL Eos # (Auto) (0-0.5) K/uL Baso # (Auto) (0-0.2) K/uL PT (9.0-12.0) Seconds INR (0.9-1.1) APTT (21.0-31.0) Seconds PTT Ratio VBG pH 7.38 (7.36-7.41) VBG pCO2 48 (38-50) mmHg VBG pO2 56 mmHg VBG HCO3 27 mmol/L VBG O2 Saturation 85.0 % VBG Base Excess 1.5 mEq/L Sodium (136-145) mmol/L Potassium (3.5-5.1) mmol/L Chloride (98-107) mmol/L Carbon Dioxide (21-32) mmol/L Anion Gap (3-11) BUN (7-18) mg/dl Creatinine 0.62 (0.6-1.2) mg/dl Est Cr Clr Drug Dosing 81.2 ml/min Est GFR ( Amer) 114.4 Est GFR (Non-Af Amer) 98.7 BUN/Creatinine Ratio (10-20) Glucose (70-99) mg/dl Lactate 3.2 H* (0.4-2.0) mmol/L Calcium (8.5-10.1) mg/dl Magnesium (1.8-2.4) mg/dl Total Bilirubin (0.2-1) mg/dl AST (15-37) U/L ALT (12-78) U/L Alkaline Phosphatase (45-117) U/L Troponin I (0-0.045) ng/ml NT-Pro-B Natriuret Pep (0-900) pg/ml Total Protein (6.4-8.2) gm/dl Albumin (3.4-5.0) gm/dl Globulin (2.5-4.0) gm/dl Albumin/Globulin Ratio (0.9-2) Lipase (73-393) U/L Procalcitonin (0-0.5) ng/ml TSH (0.300-4.500) uIu/ml Urine Color Urine Appearance (Clear) Urine pH (4.5-7.5) Ur Specific [place] (1.000-1.030) Urine Protein (Negative) Urine Glucose (UA) (Negative) Urine Ketones (Negative) Urine Blood (Negative) Urine Nitrite (Negative) Urine Bilirubin (Negative) Urine Urobilinogen (Negative) Ur Leukocyte Esterase (Negative) Urine WBC (Auto) (0-5) /hpf Urine RBC (Auto) (0-4) /hpf U Hyaline Cast (Auto) (0-5) /lpf U Epithel Cells (Auto) (0-5) /lpf Urine Bacteria (Auto) (Negative) Urine Opiates Screen (Neg) Ur Methadone, Qual (Neg) Urine Barbiturates (Neg) Ur Phencyclidine (PCP) (Neg) U Amphetamines Confirm U Amphetamin/Meth Scrn (Neg) U Methamphetamin Confrm MDMA (Ecstasy) Screen (Neg) U Benzodiazepines Scrn (Neg) Ur Cocaine Metabolite (Neg) U Marijuana (THC) Screen (Neg) Ethyl Alcohol mg/dL (0-3) mg/dl 11/24/18 11/24/18 11/24/18 Range/Units 23:33 23:08 23:08 WBC (4.8-10.8) K/uL RBC (4.2-5.4) M/uL Hgb (12.0-16.0) g/dL Hct (37-47) % MCV (80-100) fL MCH (25-34) pg MCHC (32-36) g/dL RDW Std Deviation (36.4-46.3) fL RDW Coeff of Don (11.5-14.5) % Plt Count (130-400) K/uL MPV (7.4-10.4) fL Immature Gran % (Auto) % Neut % (Auto) % Lymph % (Auto) % [place] % (Auto) % Eos % (Auto) % Baso % (Auto) % Immature Gran # (Auto) (0.00-0.02) K/uL Neut # (Auto) (1.4-6.5) K/uL Lymph # (Auto) (1.2-3.4) K/uL [place] # (Auto) (0.11-0.59) K/uL Eos # (Auto) (0-0.5) K/uL Baso # (Auto) (0-0.2) K/uL PT 9.6 (9.0-12.0) Seconds INR 0.9 (0.9-1.1) APTT 24.4 (21.0-31.0) Seconds PTT Ratio 0.9 VBG pH (7.36-7.41) VBG pCO2 (38-50) mmHg VBG pO2 mmHg VBG HCO3 mmol/L VBG O2 Saturation % VBG Base Excess mEq/L Sodium (136-145) mmol/L Potassium (3.5-5.1) mmol/L Chloride (98-107) mmol/L Carbon Dioxide (21-32) mmol/L Anion Gap (3-11) BUN (7-18) mg/dl Creatinine (0.6-1.2) mg/dl Est Cr Clr Drug Dosing ml/min Est GFR ( Amer) Est GFR (Non-Af Amer) BUN/Creatinine Ratio (10-20) Glucose (70-99) mg/dl Lactate (0.4-2.0) mmol/L Calcium (8.5-10.1) mg/dl Magnesium (1.8-2.4) mg/dl Total Bilirubin (0.2-1) mg/dl AST (15-37) U/L ALT (12-78) U/L Alkaline Phosphatase (45-117) U/L Troponin I (0-0.045) ng/ml NT-Pro-B Natriuret Pep (0-900) pg/ml Total Protein (6.4-8.2) gm/dl Albumin (3.4-5.0) gm/dl Globulin (2.5-4.0) gm/dl Albumin/Globulin Ratio (0.9-2) Lipase (73-393) U/L Procalcitonin < 0.05 (0-0.5) ng/ml TSH (0.300-4.500) uIu/ml Urine Color Urine Appearance (Clear) Urine pH (4.5-7.5) Ur Specific [place] (1.000-1.030) Urine Protein (Negative) Urine Glucose (UA) (Negative) Urine Ketones (Negative) Urine Blood (Negative) Urine Nitrite (Negative) Urine Bilirubin (Negative) Urine Urobilinogen (Negative) Ur Leukocyte Esterase (Negative) Urine WBC (Auto) (0-5) /hpf Urine RBC (Auto) (0-4) /hpf U Hyaline Cast (Auto) (0-5) /lpf U Epithel Cells (Auto) (0-5) /lpf Urine Bacteria (Auto) (Negative) Urine Opiates Screen (Neg) Ur Methadone, Qual (Neg) Urine Barbiturates (Neg) Ur Phencyclidine (PCP) (Neg) U Amphetamines Confirm U Amphetamin/Meth Scrn (Neg) U Methamphetamin Confrm MDMA (Ecstasy) Screen (Neg) U Benzodiazepines Scrn (Neg) Ur Cocaine Metabolite (Neg) U Marijuana (THC) Screen (Neg) Ethyl Alcohol mg/dL 295.7 H (0-3) mg/dl 11/24/18 11/24/18 11/24/18 Range/Units 23:08 23:08 23:08 WBC 4.69 L (4.8-10.8) K/uL RBC 4.32 (4.2-5.4) M/uL Hgb 13.1 (12.0-16.0) g/dL Hct 39.7 (37-47) % MCV 91.9 (80-100) fL MCH 30.3 (25-34) pg MCHC 33.0 (32-36) g/dL RDW Std Deviation 45.3 (36.4-46.3) fL RDW Coeff of Don 13.5 (11.5-14.5) % Plt Count 132 (130-400) K/uL MPV 9.5 (7.4-10.4) fL Immature Gran % (Auto) 0.0 % Neut % (Auto) 45.2 % Lymph % (Auto) 41.4 % [place] % (Auto) 11.3 % Eos % (Auto) 1.5 % Baso % (Auto) 0.6 % Immature Gran # (Auto) 0.00 (0.00-0.02) K/uL Neut # (Auto) 2.12 (1.4-6.5) K/uL Lymph # (Auto) 1.94 (1.2-3.4) K/uL [place] # (Auto) 0.53 (0.11-0.59) K/uL Eos # (Auto) 0.07 (0-0.5) K/uL Baso # (Auto) 0.03 (0-0.2) K/uL PT (9.0-12.0) Seconds INR (0.9-1.1) APTT (21.0-31.0) Seconds PTT Ratio VBG pH (7.36-7.41) VBG pCO2 (38-50) mmHg VBG pO2 mmHg VBG HCO3 mmol/L VBG O2 Saturation % VBG Base Excess mEq/L Sodium 136 (136-145) mmol/L Potassium 3.5 (3.5-5.1) mmol/L Chloride 97 L (98-107) mmol/L Carbon Dioxide 27 (21-32) mmol/L Anion Gap 12.0 H (3-11) BUN 10 (7-18) mg/dl Creatinine 0.60 (0.6-1.2) mg/dl Est Cr Clr Drug Dosing 82.7 ml/min Est GFR ( Amer) 115.6 Est GFR (Non-Af Amer) 99.8 BUN/Creatinine Ratio 15.8 (10-20) Glucose 82 (70-99) mg/dl Lactate 3.2 H* (0.4-2.0) mmol/L Calcium 9.5 (8.5-10.1) mg/dl Magnesium 1.7 L (1.8-2.4) mg/dl Total Bilirubin 0.4 (0.2-1) mg/dl AST 139 H (15-37) U/L ALT 71 (12-78) U/L Alkaline Phosphatase 216 H (45-117) U/L Troponin I < 0.015 (0-0.045) ng/ml NT-Pro-B Natriuret Pep 45 (0-900) pg/ml Total Protein 8.2 (6.4-8.2) gm/dl Albumin 3.8 (3.4-5.0) gm/dl Globulin 4.4 H (2.5-4.0) gm/dl Albumin/Globulin Ratio 0.9 (0.9-2) Lipase 269 (73-393) U/L Procalcitonin (0-0.5) ng/ml TSH 1.970 (0.300-4.500) uIu/ml Urine Color Urine Appearance (Clear) Urine pH (4.5-7.5) Ur Specific [place] (1.000-1.030) Urine Protein (Negative) Urine Glucose (UA) (Negative) Urine Ketones (Negative) Urine Blood (Negative) Urine Nitrite (Negative) Urine Bilirubin (Negative) Urine Urobilinogen (Negative) Ur Leukocyte Esterase (Negative) Urine WBC (Auto) (0-5) /hpf Urine RBC (Auto) (0-4) /hpf U Hyaline Cast (Auto) (0-5) /lpf U Epithel Cells (Auto) (0-5) /lpf Urine Bacteria (Auto) (Negative) Urine Opiates Screen (Neg) Ur Methadone, Qual (Neg) Urine Barbiturates (Neg) Ur Phencyclidine (PCP) (Neg) U Amphetamines Confirm U Amphetamin/Meth Scrn (Neg) U Methamphetamin Confrm MDMA (Ecstasy) Screen (Neg) U Benzodiazepines Scrn (Neg) Ur Cocaine Metabolite (Neg) U Marijuana (THC) Screen (Neg) Ethyl Alcohol mg/dL (0-3) mg/dl 11/24/18 11/24/18 11/24/18 Range/Units 05:30 05:30 05:30 WBC (4.8-10.8) K/uL RBC (4.2-5.4) M/uL Hgb (12.0-16.0) g/dL Hct (37-47) % MCV (80-100) fL MCH (25-34) pg MCHC (32-36) g/dL RDW Std Deviation (36.4-46.3) fL RDW Coeff of Don (11.5-14.5) % Plt Count (130-400) K/uL MPV (7.4-10.4) fL Immature Gran % (Auto) % Neut % (Auto) % Lymph % (Auto) % [place] % (Auto) % Eos % (Auto) % Baso % (Auto) % Immature Gran # (Auto) (0.00-0.02) K/uL Neut # (Auto) (1.4-6.5) K/uL Lymph # (Auto) (1.2-3.4) K/uL [place] # (Auto) (0.11-0.59) K/uL Eos # (Auto) (0-0.5) K/uL Baso # (Auto) (0-0.2) K/uL PT (9.0-12.0) Seconds INR (0.9-1.1) APTT (21.0-31.0) Seconds PTT Ratio VBG pH (7.36-7.41) VBG pCO2 (38-50) mmHg VBG pO2 mmHg VBG HCO3 mmol/L VBG O2 Saturation % VBG Base Excess mEq/L Sodium (136-145) mmol/L Potassium (3.5-5.1) mmol/L Chloride (98-107) mmol/L Carbon Dioxide (21-32) mmol/L Anion Gap (3-11) BUN (7-18) mg/dl Creatinine (0.6-1.2) mg/dl Est Cr Clr Drug Dosing ml/min Est GFR ( Amer) Est GFR (Non-Af Amer) BUN/Creatinine Ratio (10-20) Glucose (70-99) mg/dl Lactate (0.4-2.0) mmol/L Calcium (8.5-10.1) mg/dl Magnesium (1.8-2.4) mg/dl Total Bilirubin (0.2-1) mg/dl AST (15-37) U/L ALT (12-78) U/L Alkaline Phosphatase (45-117) U/L Troponin I (0-0.045) ng/ml NT-Pro-B Natriuret Pep (0-900) pg/ml Total Protein (6.4-8.2) gm/dl Albumin (3.4-5.0) gm/dl Globulin (2.5-4.0) gm/dl Albumin/Globulin Ratio (0.9-2) Lipase (73-393) U/L Procalcitonin (0-0.5) ng/ml TSH (0.300-4.500) uIu/ml Urine Color Yellow Urine Appearance Clear (Clear) Urine pH 5.5 (4.5-7.5) Ur Specific [place] > 1.045 H (1.000-1.030) Urine Protein Trace H (Negative) Urine Glucose (UA) Negative (Negative) Urine Ketones Negative (Negative) Urine Blood Negative (Negative) Urine Nitrite Negative (Negative) Urine Bilirubin Negative (Negative) Urine Urobilinogen Negative (Negative) Ur Leukocyte Esterase Negative (Negative) Urine WBC (Auto) 1-5 (0-5) /hpf Urine RBC (Auto) 0-4 (0-4) /hpf U Hyaline Cast (Auto) 1-5 (0-5) /lpf U Epithel Cells (Auto) >30 H (0-5) /lpf Urine Bacteria (Auto) 1+ H (Negative) Urine Opiates Screen Neg (Neg) Ur Methadone, Qual Neg (Neg) Urine Barbiturates Neg (Neg) Ur Phencyclidine (PCP) Neg (Neg) U Amphetamines Confirm Pending U Amphetamin/Meth Scrn Pos H (Neg) U Methamphetamin Confrm Pending MDMA (Ecstasy) Screen Neg (Neg) U Benzodiazepines Scrn Neg (Neg) Ur Cocaine Metabolite Neg (Neg) U Marijuana (THC) Screen Neg (Neg) Ethyl Alcohol mg/dL (0-3) mg/dl Medications Administered Current Inpatient Medications Acetaminophen (Tylenol) 650 mg PO Q4H PRN PRN Reason: Pain or Fever Stop: 12/25/18 04:47 Al Hydrox/Mg Hydrox/Simethicone (Maalox) 15 ml PO Q4H PRN PRN Reason: Dyspepsia Stop: 12/25/18 04:47 Albuterol (Ventolin 0.083% 2.5mg/3ml) 2.5 mg NEB Q4H PRN PRN Reason: Dyspnea Stop: 12/25/18 04:14 Albuterol (Duoneb) 3 ml NEB QIDR [facility] Stop: 12/25/18 07:59 Last Admin: 11/25/18 07:23 Dose: 3 ml Documented by: Divalproex Sodium (Depakote Extended Release) 500 mg PO DAILY [facility] Stop: 12/25/18 08:59 Last Admin: 11/25/18 08:45 Dose: 500 mg Documented by: Escitalopram Oxalate (Lexapro Tab) 20 mg PO DAILY [facility] Stop: 12/25/18 08:59 Last Admin: 11/25/18 08:45 Dose: 20 mg Documented by: Folic Acid (Folvite) 1 mg PO QAM [facility] Stop: 12/25/18 08:59 Last Admin: 11/25/18 08:47 Dose: 1 mg Documented by: Methylprednisolone 60 mg/ (Syringe) 0.96 mls @ 1.5 mls/min IV Q6H [facility] Stop: 12/25/18 04:59 Last Admin: 11/25/18 05:43 Dose: 1.5 mls/min Documented by: Piperacillin Sod/Tazobactam (Sod 3.375 gm/ Dextrose) 115 mls @ 28.75 mls/hr IV Q8H [facility]; Protocol Stop: 12/02/18 05:59 Last Infusion: 11/25/18 08:52 Dose: Infused Documented by: Dextrose/Lactated Ringer's (D5w And Lactated Ringers) 1,000 mls @ 150 mls/hr IV .[id number] [facility] Stop: 11/25/18 18:07 Last Admin: 11/25/18 06:13 Dose: 150 mls/hr Documented by: Lorazepam (Ativan) 1 mg in 2 mls @ 2 mls/min IV Q4H PRN PRN Reason: moderate withdrawal Stop: 12/25/18 04:47 Lorazepam (Ativan) 2 mg in 4 mls @ 4 mls/min IV Q4H PRN PRN Reason: severe withdrawal Stop: 12/25/18 04:47 Last Admin: 11/25/18 08:41 Dose: 4 mls/min Documented by: Doxycycline Hyclate 100 mg/ (Dextrose) 110 mls @ 50 mls/hr IV BID YASMANI; Protocol Stop: 12/02/18 08:59 Last Admin: 11/25/18 08:44 Dose: 50 mls/hr Documented by: Thiamine HCl 100 mg/ Syringe 10 mls @ 2 mls/min IV QAM [facility]ASMANI Stop: 12/25/18 08:59 Last Admin: 11/25/18 08:45 Dose: 2 mls/min Documented by: Ioversol (Optiray 320 125ml) 125 ml IV ONCE PRN PRN Reason: Interaction Checking Stop: 11/29/18 00:28 Last Admin: 11/25/18 00:29 Dose: 111 ml Documented by: Magnesium Hydroxide (Milk Of Magnesia) 30 ml PO Q12H PRN PRN Reason: Constipation Stop: 12/25/18 04:47 Miscellaneous Information (Consult) 1 ea N/A UD PRN PRN Reason: Consult Stop: 12/25/18 04:14 Miscellaneous Information (Consult) 1 ea N/A UD PRN PRN Reason: Consult Stop: 12/25/18 04:47 Ondansetron HCl (Zofran) 4 mg IV Q6H PRN PRN Reason: Nausea Stop: 12/25/18 04:47 Polyethylene Glycol (Miralax Powder Packet) 17 gm PO DAILY PRN PRN Reason: Constipation Stop: 12/25/18 04:47 PG Care Time/CCT Total # of Minutes Spent Total Time Spent with Patient: Total time spent is greater than 50% in coordination of care (as documented) at patient's floor/unit and/or counseling patient: Resident Activity Tracking Resident Involvement: Resident Care Provided Care Provided: Adult Hospital Medicine (1) Pneumonia Laterality: unspecified laterality Lung location: unspecified part of lung Pneumonia type: due to unspecified organism Qualified Code(s): J18.9 - Pneumonia, unspecified organism
[2018-11-25] MEDS ORDERED: LORazepam 1 MG TAB PO PRN (10:24)
[2018-11-25] MEDS ORDERED: GABAPENTIN 1200MG ALCOHOL WITHDRAWAL LOAD PO STA (10:28)
[2018-11-25] MEDS ORDERED: MULTI-VITAMIN INFUSION 10 ML, THIAMINE HCL 100 MG, FOLIC ACID 1 MG in SODIUM CHLORIDE 0... IV SCH ×2 (10:45)
[2018-11-25] MEDS ORDERED: GABAPENTIN 600 MG TAB PO SCH (11:00)
[2018-11-25] MEDS: GABAPENTIN 600 MG TAB PO SCH ×2 (18:14→22:16)
[2018-11-25] MEDS: ENOXAPARIN INJ 40 MG/0.4 ML SYR SQ SCH (19:51)
[2018-11-25] MEDS: LORazepam 1 MG/2 ML VIAL IV PRN (20:05)
[2018-11-26] MEDS: PIPERACILLIN/TAZOBACTAM 3.375 GM in DEXTROSE 5% 100 ML IV SCH ×3 (05:11→22:33)
[2018-11-26] MEDS: LORazepam 1 MG/2 ML VIAL IV PRN ×3 (05:35→20:31)
[2018-11-26] MEDS: methylPREDNISolone 60 MG in SYRINGE 0 ML IV SCH ×3 (05:35→15:50)
[2018-11-26] MEDS: ALBUT/IPRATROP 3MG/0.5MG NEB 3 ML VIAL NEB SCH ×4 (06:58→19:40)
[2018-11-26 07:31] LABS: Creatinine Clr Calc Pharmacy 79.5 ml/min; Est GFR (African American) 113.2; Est GFR (Non-African American) 97.7
[2018-11-26 07:40] LABS: Hematocrit (blood only) 34.5 % (37-47); Hemoglobin 10.9 g/dL (12.0-16.0); Immature Granulocytes # (auto) 0.01 K/uL (0.00-0.02); Immature Granulocytes % (auto) 0.3 %; Lymphocytes # (auto) 0.31 K/uL (1.2-3.4); Lymphocytes % (auto) 7.8 %; Mean Corpuscular Hgb Conc 31.6 g/dL (32-36); Mean Corpuscular Volume 93.5 fL (80-100); Monocytes # (auto) 0.29 K/uL (0.11-0.59); Monocytes % (auto) 7.3 %; Neutrophils # (auto) 3.38 K/uL (1.4-6.5); Neutrophils % (auto) 84.6 %; Platelet Count 104 K/uL (130-400); RDW Coefficient of Variation 13.5 % (11.5-14.5); RDW Standard Deviation 46.4 fL (36.4-46.3); Red Blood Count 3.69 M/uL (4.2-5.4); White Blood Count 3.99 K/uL (4.8-10.8)
--- NOTE | 2018-11-26 07:44 | Family Medicine Progress Note ---
Date of Service November 26, 2018 Assessment & Plan (1) Pneumonia: 58 y/o F Hx ETOH abuse, COPD, smoker, depression. Presents with progressive SOB and a productive cough for 2-3 weeks. The pt was hypoxic on arrival to the ER, requiring 3L 02. Initial labs are notable for an elevated lactic acid, low magnesium and an alcohol level of 247. A CT of the chest shows lingular and left lower lobe opacities. On 08/13/18 she was admitted to the ICU with strep pneumonia and severe sepsis. It is not clear how much of the current findings on imaging are residual. #)Pneumonia. Patient recently admitted to the ICU with strep pneumonia and severe sepsis approximately 3 months ago. Initially in the ED she was given Vanco Zosyn, doxy pending culture results and out of concern for H CAP MRSA results came back negative DC'd Vanco is doxy will cover MRSA as well. Continue Zosyn and doxy pending culture results out of concern for H CAP -> plan to DC Zosyn and transition to oral doxy over the next day or 2 Trend daily CBC Follow-up cultures no growth to date #) COPD exacerbation Patient is a history of COPD not on oxygen at home. Continue O2 protocol Continue scheduled nebs Continue IV methylprednisolone 60 mgs every 6 hours plan to taper tomorrow versus quick pulse dose depending on clinical improvement #) Alcohol withdrawal Patient is a history of chronic alcoholism, has been admitted to [facility] for this several times before. Patient does appear motivated to change this time. Will continue counseling over the coming week Placed on AW SS protocol, with gabapentin, and PRN Ativan for severe withdrawal symptoms Provided multivitamin with thiamine folic acid Monitor for signs and symptoms of seizure development the next 2 days is when delirium tremens would traditionally present Continue positive reinforcement and encouragement #) Depression Continue home meds #)DVT prophylaxis Initiated Lovenox yesterday, overnight patient required increasing oxygen and her hemoglobin decreased. Temporarily held Lovenox and obtain repeat hemoglobin demonstrating stabilized being at 10.8, upon review of her records this appears to be her normal. No longer requiring additional oxygen satting 90% on room air Resumed Lovenox for DVT prophylaxis Diet: Normal Full code DVT PPX lovenox Dispo: medsurg (2) Shortness of breath: (3) Alcohol use with intoxication: Subjective Patient sleeping this morning when I arrived for examination. Patient reports no significant interval history overnight, reporting that her shaking has been decreasing and that she believes she is getting over the withdrawal. We had a lengthy discussion about what her plans were after discharge. She stated that she does not believe the rehab would be of significant help I do not necessarily disagree with this. However I did explicitly state of the patient that I believe it is important that she removes herself from the current pathological environment that she sent. We discussed her friends and how the vast majority of them drinking, how her sister drinks. We also discussed that if she goes back to the same environment around these individuals is only setting herself up for failure. Patient appeared to be understanding of this this morning, however this afternoon was asking for discharge. Given the fact that she is close to delirium tremens we will continue monitoring her for the next day or 2 and continue our counseling. No acute concerns at present, all questions answered. Physical Exam Physical Exam: General: Female who appears older than stated age, shaky, tremor, and the beginning of alcohol withdrawal HEENT: Normocephalic atraumatic Neck: Normal to visual inspection Cardiac: Regular rate and rhythm, I did not appreciate any murmurs rubs or gallops, normal S1, normal S2, negative calf tenderness Respiratory: Restricted air movement bilaterally, coarse breath sounds, no longer rhonchorous GI: Obese abdomen, soft, nontender, nondistended MSK: Moves all extremities no current complaints Neuro: Alert and oriented x4 Psych: calm, cooperative, Results & Data Vital Signs (Past 12 Hours) Vital Signs Temp Pulse Pulse Resp BP Pulse Ox 11/26/18 07:20 36.7 C 73 20 138/88 93 11/26/18 06:58 66 18 90 11/26/18 03:10 36.4 C L 80 16 160/97 H 92 11/25/18 23:39 93 H 11/25/18 23:14 36.4 C L 100 H 18 160/90 H 93 11/25/18 19:53 37.4 C 92 H 18 137/86 92 Laboratory Results 11/26/18 11/26/18 11/26/18 Range/Units 14:03 06:38 06:38 WBC (4.8-10.8) K/uL RBC (4.2-5.4) M/uL Hgb 10.8 L (12.0-16.0) g/dL Hct 33.9 L (37-47) % MCV (80-100) fL MCH (25-34) pg MCHC (32-36) g/dL RDW Std Deviation (36.4-46.3) fL RDW Coeff of Don (11.5-14.5) % Plt Count (130-400) K/uL MPV (7.4-10.4) fL Immature Gran % (Auto) % Neut % (Auto) % Lymph % (Auto) % [place] % (Auto) % Eos % (Auto) % Baso % (Auto) % Immature Gran # (Auto) (0.00-0.02) K/uL Neut # (Auto) (1.4-6.5) K/uL Lymph # (Auto) (1.2-3.4) K/uL [place] # (Auto) (0.11-0.59) K/uL Eos # (Auto) (0-0.5) K/uL Baso # (Auto) (0-0.2) K/uL Giant Platelets Sodium 139 (136-145) mmol/L Potassium 3.5 (3.5-5.1) mmol/L Chloride 102 (98-107) mmol/L Carbon Dioxide 30 (21-32) mmol/L Anion Gap 7.0 (3-11) BUN 11 (7-18) mg/dl Creatinine 0.64 (0.6-1.2) mg/dl Est Cr Clr Drug Dosing 79.5 ml/min Est GFR ( Amer) 113.2 Est GFR (Non-Af Amer) 97.7 BUN/Creatinine Ratio 16.7 (10-20) Glucose 167 H (70-99) mg/dl Calcium 9.1 (8.5-10.1) mg/dl Magnesium 1.7 L (1.8-2.4) mg/dl Total Bilirubin 0.4 (0.2-1) mg/dl AST 114 H (15-37) U/L ALT 59 (12-78) U/L Alkaline Phosphatase 190 H (45-117) U/L Total Protein 6.8 (6.4-8.2) gm/dl Albumin 3.0 L (3.4-5.0) gm/dl Globulin 3.8 (2.5-4.0) gm/dl Albumin/Globulin Ratio 0.8 L (0.9-2) 11/26/18 11/26/18 Range/Units 06:38 06:33 WBC 3.99 L (4.8-10.8) K/uL RBC 3.69 L (4.2-5.4) M/uL Hgb 10.9 L (12.0-16.0) g/dL Hct 34.5 L (37-47) % MCV 93.5 (80-100) fL MCH 29.5 (25-34) pg MCHC 31.6 L (32-36) g/dL RDW Std Deviation 46.4 H (36.4-46.3) fL RDW Coeff of Don 13.5 (11.5-14.5) % Plt Count 104 L (130-400) K/uL MPV 10.0 (7.4-10.4) fL Immature Gran % (Auto) 0.3 % Neut % (Auto) 84.6 % Lymph % (Auto) 7.8 % [place] % (Auto) 7.3 % Eos % (Auto) 0.0 % Baso % (Auto) 0.0 % Immature Gran # (Auto) 0.01 (0.00-0.02) K/uL Neut # (Auto) 3.38 (1.4-6.5) K/uL Lymph # (Auto) 0.31 L (1.2-3.4) K/uL [place] # (Auto) 0.29 (0.11-0.59) K/uL Eos # (Auto) 0.00 (0-0.5) K/uL Baso # (Auto) 0.00 (0-0.2) K/uL [place] Plate[place] 1+ Sodium (136-145) mmol/L Potassium (3.5-5.1) mmol/L Chloride (98-107) mmol/L Carbon Dioxide (21-32) mmol/L Anion Gap (3-11) BUN (7-18) mg/dl Creatinine 0.64 (0.6-1.2) mg/dl Est Cr Clr Drug Dosing 79.5 ml/min Est GFR ( Amer) 113.2 Est GFR (Non-Af Amer) 97.7 BUN/Creatinine Ratio (10-20) Glucose (70-99) mg/dl Calcium (8.5-10.1) mg/dl Magnesium (1.8-2.4) mg/dl Total Bilirubin (0.2-1) mg/dl AST (15-37) U/L ALT (12-78) U/L Alkaline Phosphatase (45-117) U/L Total Protein (6.4-8.2) gm/dl Albumin (3.4-5.0) gm/dl Globulin (2.5-4.0) gm/dl Albumin/Globulin Ratio (0.9-2) Medications Administered Current Inpatient Medications Acetaminophen (Tylenol) 650 mg PO Q4H PRN PRN Reason: Pain or Fever Stop: 12/25/18 04:47 Al Hydrox/Mg Hydrox/Simethicone (Maalox) 15 ml PO Q4H PRN PRN Reason: Dyspepsia Stop: 12/25/18 04:47 Albuterol (Ventolin 0.083% 2.5mg/3ml) 2.5 mg NEB Q4H PRN PRN Reason: Dyspnea Stop: 12/25/18 04:14 Albuterol (Duoneb) 3 ml NEB QIDR [facility] Stop: 12/25/18 07:59 Last Admin: 11/26/18 15:03 Dose: 3 ml Documented by: Divalproex Sodium (Depakote Extended Release) 500 mg PO DAILY [facility] Stop: 12/25/18 08:59 Last Admin: 11/26/18 07:46 Dose: 500 mg Documented by: Enoxaparin Sodium (Lovenox) 40 mg SQ Q24H [facility] Stop: 12/25/18 20:59 Last Admin: 11/25/18 19:51 Dose: 40 mg Documented by: Escitalopram Oxalate (Lexapro Tab) 20 mg PO DAILY [facility] Stop: 12/25/18 08:59 Last Admin: 11/26/18 07:46 Dose: 20 mg Documented by: Folic Acid (Folvite) 1 mg PO QAM [facility] Stop: 12/25/18 08:59 Last Admin: 11/26/18 07:46 Dose: 1 mg Documented by: Gabapentin (Neurontin) 600 mg PO Q12H [facility] Stop: 11/27/18 23:01 Gabapentin (Neurontin) 600 mg PO Q24H [facility] Stop: 11/28/18 23:01 Gabapentin (Neurontin) 600 mg PO Q8H [facility] Stop: 11/26/18 23:01 Last Admin: 11/26/18 15:50 Dose: 600 mg Documented by: Methylprednisolone 60 mg/ (Syringe) 0.96 mls @ 1.5 mls/min IV Q6H [facility] Stop: 12/25/18 04:59 Last Admin: 11/26/18 15:50 Dose: 1.5 mls/min Documented by: Piperacillin Sod/Tazobactam (Sod 3.375 gm/ Dextrose) 115 mls @ 28.75 mls/hr IV Q8H [facility]; Protocol Stop: 12/02/18 05:59 Last Admin: 11/26/18 14:03 Dose: 28.8 mls/hr Documented by: Doxycycline Hyclate 100 mg/ (Dextrose) 110 mls @ 50 mls/hr IV BID [facility]; Protocol Stop: 12/02/18 08:59 Last Infusion: 11/26/18 10:01 Dose: Infused Documented by: Thiamine HCl 100 mg/ Syringe 10 mls @ 2 mls/min IV QAM [facility] Stop: 12/25/18 08:59 Last Admin: 11/26/18 07:46 Dose: 2 mls/min Documented by: Lorazepam (Ativan) 1 mg in 2 mls @ 2 mls/min IV ONE PRN; Protocol PRN Reason: EtoH Withdrawal AWSS 6-10 Stop: 12/25/18 19:29 Last Admin: 11/26/18 14:09 Dose: 2 mls/min Documented by: Ioversol (Optiray 320 125ml) 125 ml IV ONCE PRN PRN Reason: Interaction Checking Stop: 11/29/18 00:28 Last Admin: 11/25/18 00:29 Dose: 111 ml Documented by: Magnesium Hydroxide (Milk Of Magnesia) 30 ml PO Q12H PRN PRN Reason: Constipation Stop: 12/25/18 04:47 Miscellaneous Information (Consult) 1 ea N/A UD PRN PRN Reason: Consult Stop: 12/25/18 04:14 Ondansetron HCl (Zofran) 4 mg IV Q6H PRN PRN Reason: Nausea Stop: 12/25/18 04:47 Polyethylene Glycol (Miralax Powder Packet) 17 gm PO DAILY PRN PRN Reason: Constipation Stop: 12/25/18 04:47 PG Care Time/CCT Total # of Minutes Spent Total Time Spent with Patient: Total time spent is greater than 50% in coordination of care (as documented) at patient's floor/unit and/or counseling patient: Resident Activity Tracking Resident Involvement: Resident Care Provided Care Provided: Adult Hospital Medicine (1) Pneumonia Laterality: unspecified laterality Lung location: unspecified part of lung Pneumonia type: due to unspecified organism Qualified Code(s): J18.9 - Pneumonia, unspecified organism
[2018-11-26] MEDS: DIVALPROEX EXTENDED RELEASE 500 MG TAB PO SCH (07:46)
[2018-11-26] MEDS: FOLIC ACID 1 MG TAB PO SCH (07:46)
[2018-11-26] MEDS: THIAMINE HCL 100 MG in SYRINGE 9 ML IV SCH (07:46)
[2018-11-26] MEDS: GABAPENTIN 600 MG TAB PO SCH ×3 (07:46→22:33)
[2018-11-26] MEDS: ESCITALOPRAM OXALATE 20 MG TAB PO SCH (07:46)
[2018-11-26] MEDS: DOXYCYCLINE HYCLATE 100 MG in DEXTROSE 5% 100 ML IV SCH ×2 (07:50→20:30)
[2018-11-26 07:51] LABS: BUN Creatinine Ratio 16.7 (10-20); Calcium 9.1 mg/dl (8.5-10.1); Creatinine Clr Calc Pharmacy 79.5 ml/min; Est GFR (African American) 113.2; Est GFR (Non-African American) 97.7; Potassium 3.5 mmol/L (3.5-5.1)
[2018-11-26 08:00] LABS: Albumin Globulin Ratio 0.8 (0.9-2); Bilirubin,Total 0.4 mg/dl (0.2-1); Globulin 3.8 gm/dl (2.5-4.0); Total Protein 6.8 gm/dl (6.4-8.2)
[2018-11-26 08:14] LABS: Giant Platelets 1+
[2018-11-26] MEDS: POTASSIUM CHLORIDE 20 MEQ TABCR PO SCH ×2 (08:51→11:59)
[2018-11-26] MEDS: MAGNESIUM SULFATE / D5W 1 GM/100 ML BAG IV SCH ×2 (10:01→11:04)
[2018-11-26 14:19] LABS: Hematocrit (blood only) 33.9 % (37-47); Hemoglobin 10.8 g/dL (12.0-16.0)
[2018-11-26] MEDS ORDERED: methylPREDNISolone 60 MG in SYRINGE 0 ML IV SCH (21:00)
[2018-11-26] MEDS: ENOXAPARIN INJ 40 MG/0.4 ML SYR SQ SCH (22:33)
[2018-11-27] MEDS: PIPERACILLIN/TAZOBACTAM 3.375 GM in DEXTROSE 5% 100 ML IV SCH ×2 (05:51→14:14)
[2018-11-27 06:22] LABS: Hematocrit (blood only) 31.9 % (37-47); Hemoglobin 10.4 g/dL (12.0-16.0); Immature Granulocytes # (auto) 0.04 K/uL (0.00-0.02); Immature Granulocytes % (auto) 0.5 %; Lymphocytes # (auto) 0.44 K/uL (1.2-3.4); Lymphocytes % (auto) 5.8 %; Mean Corpuscular Hgb Conc 32.6 g/dL (32-36); Mean Corpuscular Volume 93.8 fL (80-100); Mean Platelet Volume 10.2 fL (7.4-10.4); Monocytes # (auto) 0.48 K/uL (0.11-0.59); Monocytes % (auto) 6.3 %; Neutrophils # (auto) 6.62 K/uL (1.4-6.5); Neutrophils % (auto) 87.4 %; Platelet Count 107 K/uL (130-400); RDW Coefficient of Variation 13.6 % (11.5-14.5); White Blood Count 7.58 K/uL (4.8-10.8)
[2018-11-27] MEDS: LORazepam 1 MG/2 ML VIAL IV PRN ×2 (06:28→21:47)
[2018-11-27 07:01] LABS: BUN Creatinine Ratio 30.3 (10-20); Calcium 8.8 mg/dl (8.5-10.1); Creatinine Clr Calc Pharmacy 74.6 ml/min; Est GFR (Non-African American) 95.7; Potassium 3.9 mmol/L (3.5-5.1)
[2018-11-27] MEDS: ALBUT/IPRATROP 3MG/0.5MG NEB 3 ML VIAL NEB SCH ×4 (07:07→19:29)
[2018-11-27 07:33] LABS: Amphetamine Urine, Confirm 7570 NG/ML (CUTOFF=250); Methamphetamine, Ur Confirm NEGATIVE NG/ML (CUTOFF=250)
--- NOTE | 2018-11-27 07:57 | Family Medicine Progress Note ---
Date of Service November 27, 2018 Assessment & Plan (1) Pneumonia: 58 y/o F Hx ETOH abuse, COPD, smoker, depression. Presents with progressive SOB and a productive cough for 2-3 weeks. The pt was hypoxic on arrival to the ER, requiring 3L 02. Initial labs are notable for an elevated lactic acid, low magnesium and an alcohol level of 247. A CT of the chest shows lingular and left lower lobe opacities. On 08/13/18 she was admitted to the ICU with strep pneumonia and severe sepsis. It is not clear how much of the current findings on imaging are residual. #)Pneumonia. Patient recently admitted to the ICU with strep pneumonia and severe sepsis approximately 3 months ago. Initially in the ED she was given Vanco Zosyn, doxy pending culture results and out of concern for H CAP MRSA results came back negative DC'd Vanco is doxy will cover MRSA as well. Discontinued Zosyn -> transitioned to oral doxy Trend daily CBC Follow-up cultures no growth to date #) COPD exacerbation Patient is a history of COPD not on oxygen at home. Continue O2 protocol Continue scheduled nebs Continue IV methylprednisolone 40 mgs BID #) Alcohol withdrawal Patient is a history of chronic alcoholism, has been admitted to [facility] for this several times before. Patient does appear motivated to change this time. Will continue counseling over the coming week Placed on AW SS protocol, with gabapentin, and PRN Ativan for severe withdrawal symptoms Provided multivitamin with thiamine folic acid Monitor for signs and symptoms of seizure development the next 2 days is when delirium tremens would traditionally present Continue positive reinforcement and encouragement -Clinically appears to be doing better #) Depression Continue home meds #)DVT prophylaxis Initiated Lovenox yesterday, overnight patient required increasing oxygen and her hemoglobin decreased. Temporarily held Lovenox and obtain repeat hemoglobin demonstrating stabilized being at 10.8, upon review of her records this appears to be her normal. No longer requiring additional oxygen satting 90% on room air Resumed Lovenox for DVT prophylaxis Diet: Normal Full code DVT PPX: lovenox Dispo: Discharge pending clinical improvement (2) Shortness of breath: (3) Alcohol use with intoxication: Supervising Physician Co-Signing Physician Notes Patient seen and examined independently of Dr. Hernandez. Agree with history, exam findings, assessment and plan of care as outlined. In brief, Ms Aguirre is a 58 year old female with hx of recent pneumonia admission, COPD, ETOH abuse with hx of DTs, depression admitted for pneumonia with new O2 requirement. Breathing comfortably on 2L. Crackles in the left lower lobe. Minimal end expiratory wheeze, fair air movement throughout. 1. pneumonia with hypoxia -wean O2 and if unable, 2-step - continue IV zosyn - CCM 2. COPD exacerbation - continue doxy, methylpred, and duonebs 3. ETOH withdrawal with prior hx of DTs - AWAS protocol. gabapentin, ativan PRN. - careful monitoring of vital signs, CCM - not interested in going to rehab for ETOH after hospital stay. CM consult for assistance with other community resources to help her maintain her sobriety following discharge. Dispo: clinical improvement Subjective Patient's sitting up in bed this morning in no acute distress. Patient reports doing better and her withdrawal symptoms are subsiding. Decreased tremor, decreased tachycardia, not as anxious. We continued to have a discussion regarding the patient's alcohol addiction today. Her plan is upon discharge to go home and "make changes". When I asked her what specific changes she was referring to she could not identify them. I continue to encourage her to change her home environment and her social contacts. I am concerned if she goes back to the same home environment with the same social contacts history of self and that she will return to alcohol use. Patient reports pulmonary symptoms are improved as well. During the exam the patient was not on oxygen and her room was satting 87% on room air. She likely requires oxygen [id number] now. We will need 2 step prior to discharge. We will continue to monitor her withdr awal out of concurrent concern for delirium tremens likely for discharge over the next day or 2. Patient is tolerating her diet, voiding, stooling, sleeping. No acute concerns, all questions answered. Physical Exam Physical Exam: General: Female who appears older than stated age, shaky, tremor, and the beginning of alcohol withdrawal although improving when compared to yesterday HEENT: Normocephalic atraumatic Neck: Normal to visual inspection Cardiac: Regular rate and rhythm, I did not appreciate any murmurs rubs or gallops, normal S1, normal S2, negative calf tenderness Respiratory: Restricted air movement bilaterally, coarse breath sounds, no longer rhonchorous GI: Obese abdomen, soft, nontender, nondistended MSK: Moves all extremities no current complaints Neuro: Alert and oriented x4 Psych: calm, cooperative, Results & Data Vital Signs (Past 12 Hours) Vital Signs Temp Pulse Resp BP BP Pulse Ox 11/27/18 07:07 78 17 95 11/27/18 07:00 36.7 C 70 22 132/75 94 11/27/18 02:56 36.3 C L 78 20 136/81 92 11/26/18 23:38 37 C 92 H 22 138/77 94 Laboratory Results 11/27/18 11/27/18 11/26/18 Range/Units 05:47 05:47 14:03 WBC 7.58 (4.8-10.8) K/uL RBC 3.40 L (4.2-5.4) M/uL Hgb 10.4 L 10.8 L (12.0-16.0) g/dL Hct 31.9 L 33.9 L (37-47) % MCV 93.8 (80-100) fL MCH 30.6 (25-34) pg MCHC 32.6 (32-36) g/dL RDW Std Deviation 47.0 H (36.4-46.3) fL RDW Coeff of Don 13.6 (11.5-14.5) % Plt Count 107 L (130-400) K/uL MPV 10.2 (7.4-10.4) fL Immature Gran % (Auto) 0.5 % Neut % (Auto) 87.4 % Lymph % (Auto) 5.8 % [place] % (Auto) 6.3 % Eos % (Auto) 0.0 % Baso % (Auto) 0.0 % Immature Gran # (Auto) 0.04 H (0.00-0.02) K/uL Neut # (Auto) 6.62 H (1.4-6.5) K/uL Lymph # (Auto) 0.44 L (1.2-3.4) K/uL [place] # (Auto) 0.48 (0.11-0.59) K/uL Eos # (Auto) 0.00 (0-0.5) K/uL Baso # (Auto) 0.00 (0-0.2) K/uL Giant Platelets Sodium 138 (136-145) mmol/L Potassium 3.9 (3.5-5.1) mmol/L Chloride 102 (98-107) mmol/L Carbon Dioxide 32 (21-32) mmol/L Anion Gap 4.0 (3-11) BUN 21 H D (7-18) mg/dl Creatinine 0.68 (0.6-1.2) mg/dl Est Cr Clr Drug Dosing 74.6 ml/min Est GFR ( Amer) 111.0 Est GFR (Non-Af Amer) 95.7 BUN/Creatinine Ratio 30.3 H (10-20) Glucose 173 H (70-99) mg/dl Calcium 8.8 (8.5-10.1) mg/dl Magnesium (1.8-2.4) mg/dl Total Bilirubin (0.2-1) mg/dl Alkaline Phosphatase (45-117) U/L Total Protein (6.4-8.2) gm/dl Globulin (2.5-4.0) gm/dl Albumin/Globulin Ratio (0.9-2) U Amphetamines Confirm (ECEYOB=252) NG/ML U Methamphetamin Confrm (RJXKNI=594) NG/ML 11/26/18 11/26/18 11/26/18 Range/Units 06:38 06:38 06:38 WBC (4.8-10.8) K/uL RBC (4.2-5.4) M/uL Hgb (12.0-16.0) g/dL Hct (37-47) % MCV (80-100) fL MCH (25-34) pg MCHC (32-36) g/dL RDW Std Deviation (36.4-46.3) fL RDW Coeff of Don (11.5-14.5) % Plt Count (130-400) K/uL MPV (7.4-10.4) fL Immature Gran % (Auto) % Neut % (Auto) % Lymph % (Auto) % [place] % (Auto) % Eos % (Auto) % Baso % (Auto) % Immature Gran # (Auto) (0.00-0.02) K/uL Neut # (Auto) (1.4-6.5) K/uL Lymph # (Auto) (1.2-3.4) K/uL [place] # (Auto) (0.11-0.59) K/uL Eos # (Auto) (0-0.5) K/uL Baso # (Auto) (0-0.2) K/uL Giant Platelets 1+ Sodium (136-145) mmol/L Potassium (3.5-5.1) mmol/L Chloride (98-107) mmol/L Carbon Dioxide (21-32) mmol/L Anion Gap (3-11) BUN (7-18) mg/dl Creatinine (0.6-1.2) mg/dl Est Cr Clr Drug Dosing ml/min Est GFR ( Amer) Est GFR (Non-Af Amer) BUN/Creatinine Ratio (10-20) Glucose (70-99) mg/dl Calcium (8.5-10.1) mg/dl Magnesium 1.7 L (1.8-2.4) mg/dl Total Bilirubin 0.4 (0.2-1) mg/dl Alkaline Phosphatase 190 H (45-117) U/L Total Protein 6.8 (6.4-8.2) gm/dl Globulin 3.8 (2.5-4.0) gm/dl Albumin/Globulin Ratio 0.8 L (0.9-2) U Amphetamines Confirm (FFVIDX=667) NG/ML U Methamphetamin Confrm (BKAZBT=424) NG/ML 11/24/18 Range/Units 05:30 WBC (4.8-10.8) K/uL RBC (4.2-5.4) M/uL Hgb (12.0-16.0) g/dL Hct (37-47) % MCV (80-100) fL MCH (25-34) pg MCHC (32-36) g/dL RDW Std Deviation (36.4-46.3) fL RDW Coeff of Don (11.5-14.5) % Plt Count (130-400) K/uL MPV (7.4-10.4) fL Immature Gran % (Auto) % Neut % (Auto) % Lymph % (Auto) % [place] % (Auto) % Eos % (Auto) % Baso % (Auto) % Immature Gran # (Auto) (0.00-0.02) K/uL Neut # (Auto) (1.4-6.5) K/uL Lymph # (Auto) (1.2-3.4) K/uL [place] # (Auto) (0.11-0.59) K/uL Eos # (Auto) (0-0.5) K/uL Baso # (Auto) (0-0.2) K/uL Giant Platelets Sodium (136-145) mmol/L Potassium (3.5-5.1) mmol/L Chloride (98-107) mmol/L Carbon Dioxide (21-32) mmol/L Anion Gap (3-11) BUN (7-18) mg/dl Creatinine (0.6-1.2) mg/dl Est Cr Clr Drug Dosing ml/min Est GFR ( Amer) Est GFR (Non-Af Amer) BUN/Creatinine Ratio (10-20) Glucose (70-99) mg/dl Calcium (8.5-10.1) mg/dl Magnesium (1.8-2.4) mg/dl Total Bilirubin (0.2-1) mg/dl Alkaline Phosphatase (45-117) U/L Total Protein (6.4-8.2) gm/dl Globulin (2.5-4.0) gm/dl Albumin/Globulin Ratio (0.9-2) U Amphetamines Confirm 7570 A (UTPQUV=708) NG/ML U Methamphetamin Confrm NEGATIVE (LJTDHD=277) NG/ML Medications Administered Current Inpatient Medications Acetaminophen (Tylenol) 650 mg PO Q4H PRN PRN Reason: Pain or Fever Stop: 12/25/18 04:47 Al Hydrox/Mg Hydrox/Simethicone (Maalox) 15 ml PO Q4H PRN PRN Reason: Dyspepsia Stop: 12/25/18 04:47 Albuterol (Ventolin 0.083% 2.5mg/3ml) 2.5 mg NEB Q4H PRN PRN Reason: Dyspnea Stop: 12/25/18 04:14 Albuterol (Duoneb) 3 ml NEB QIDR [facility] Stop: 12/25/18 07:59 Last Admin: 11/27/18 07:07 Dose: 3 ml Documented by: Divalproex Sodium (Depakote Extended Release) 500 mg PO DAILY [facility] Stop: 12/25/18 08:59 Last Admin: 11/26/18 07:46 Dose: 500 mg Documented by: Enoxaparin Sodium (Lovenox) 40 mg SQ Q24H [facility] Stop: 12/25/18 20:59 Last Admin: 11/26/18 22:33 Dose: 40 mg Documented by: Escitalopram Oxalate (Lexapro Tab) 20 mg PO DAILY [facility] Stop: 12/25/18 08:59 Last Admin: 11/26/18 07:46 Dose: 20 mg Documented by: Folic Acid (Folvite) 1 mg PO QAM [facility] Stop: 12/25/18 08:59 Last Admin: 11/26/18 07:46 Dose: 1 mg Documented by: Gabapentin (Neurontin) 600 mg PO Q12H [facility] Stop: 11/27/18 23:01 Gabapentin (Neurontin) 600 mg PO Q24H [facility] Stop: 11/28/18 23:01 Piperacillin Sod/Tazobactam (Sod 3.375 gm/ Dextrose) 115 mls @ 28.75 mls/hr IV Q8H [facility]; Protocol Stop: 12/02/18 05:59 Last Admin: 11/27/18 05:51 Dose: 28.8 mls/hr Documented by: Doxycycline Hyclate 100 mg/ (Dextrose) 110 mls @ 50 mls/hr IV BID [facility]; Protocol Stop: 12/02/18 08:59 Last Infusion: 11/26/18 22:35 Dose: Infused Documented by: Thiamine HCl 100 mg/ Syringe 10 mls @ [facility] Stop: 12/25/18 08:59 Last Admin: 11/26/18 07:46 Dose: 2 mls/min Documented by: Lorazepam (Ativan) 1 mg in 2 mls @ 2 mls/min IV ONE PRN; Protocol PRN Reason: EtoH Withdrawal AWSS 6-10 Stop: 12/25/18 19:29 Last Admin: 11/27/18 06:28 Dose: 2 mls/min Documented by: Methylprednisolone 40 mg/ (Syringe) 0.64 mls @ 1.5 mls/min IV BID [facility] Stop: 12/27/18 08:59 Ioversol (Optiray 320 125ml) 125 ml IV ONCE PRN PRN Reason: Interaction Checking Stop: 11/29/18 00:28 Last Admin: 11/25/18 00:29 Dose: 111 ml Documented by: Magnesium Hydroxide (Milk Of Magnesia) 30 ml PO Q12H PRN PRN Reason: Constipation Stop: 12/25/18 04:47 Miscellaneous Information (Consult) 1 ea N/A UD PRN PRN Reason: Consult Stop: 12/25/18 04:14 Ondansetron HCl (Zofran) 4 mg IV Q6H PRN PRN Reason: Nausea Stop: 12/25/18 04:47 Polyethylene Glycol (Miralax Powder Packet) 17 gm PO DAILY PRN PRN Reason: Constipation Stop: 12/25/18 04:47 Potassium Chloride (Klor-Con M20) 20 meq PO Q2H [facility] Stop: 11/27/18 10:01 PG Care Time/CCT Total # of Minutes Spent Total Time Spent with Patient: Total time spent is greater than 50% in coordination of care (as documented) at patient's floor/unit and/or counseling patient: Resident Activity Tracking Resident Involvement: Resident Care Provided Care Provided: Adult Hospital Medicine (1) Pneumonia Laterality: unspecified laterality Lung location: unspecified part of lung Pneumonia type: due to unspecified organism Qualified Code(s): J18.9 - Pneumonia, unspecified organism
[2018-11-27] MEDS: ESCITALOPRAM OXALATE 20 MG TAB PO SCH (08:24)
[2018-11-27] MEDS: DIVALPROEX EXTENDED RELEASE 500 MG TAB PO SCH (08:24)
[2018-11-27] MEDS: FOLIC ACID 1 MG TAB PO SCH (08:24)
[2018-11-27] MEDS: POTASSIUM CHLORIDE 20 MEQ TABCR PO SCH ×2 (08:28→10:49)
[2018-11-27] MEDS: DOXYCYCLINE HYCLATE 100 MG in DEXTROSE 5% 100 ML IV SCH (08:28)
[2018-11-27] MEDS: THIAMINE HCL 100 MG in SYRINGE 9 ML IV SCH (08:29)
[2018-11-27] MEDS: methylPREDNISolone 40 MG in SYRINGE 0 ML IV SCH ×2 (08:29→20:06)
[2018-11-27] MEDS: GABAPENTIN 600 MG TAB PO SCH ×2 (10:49→23:41)
[2018-11-27] MEDS: ENOXAPARIN INJ 40 MG/0.4 ML SYR SQ SCH (20:05)
[2018-11-27] MEDS: DOXYCYCLINE HYCLATE 100 MG CAP PO SCH (20:06)
[2018-11-27] MEDS ORDERED: TRAZODONE HCL 100 MG TAB PO PRN (23:52)
[2018-11-28 05:47] LABS: Hematocrit (blood only) 32.3 % (37-47); Hemoglobin 10.4 g/dL (12.0-16.0); Mean Corpuscular Hgb Conc 32.2 g/dL (32-36); Mean Corpuscular Volume 94.7 fL (80-100); RDW Coefficient of Variation 13.7 % (11.5-14.5); RDW Standard Deviation 47.4 fL (36.4-46.3); Red Blood Count 3.41 M/uL (4.2-5.4)
[2018-11-28 06:18] LABS: BUN Creatinine Ratio 38.6 (10-20); Calcium 8.9 mg/dl (8.5-10.1); Creatinine Clr Calc Pharmacy 89.4 ml/min; Est GFR (African American) 117.6; Est GFR (Non-African American) 101.5; Potassium 4.2 mmol/L (3.5-5.1)
[2018-11-28 06:32] LABS: Basophils # (auto) 0.01 K/uL (0-0.2); Basophils % (auto) 0.2 %; Giant Platelets 2+; Immature Granulocytes # (auto) 0.03 K/uL (0.00-0.02); Immature Granulocytes % (auto) 0.6 %; Lymphocytes # (auto) 0.56 K/uL (1.2-3.4); Lymphocytes % (auto) 11.9 %; Monocytes # (auto) 0.38 K/uL (0.11-0.59); Monocytes % (auto) 8.1 %; Neutrophils # (auto) 3.72 K/uL (1.4-6.5); Neutrophils % (auto) 79.2 %; Platelet Count 94 K/uL (130-400); Platelet Estimate Decreased (Normal)
[2018-11-28] MEDS: ALBUT/IPRATROP 3MG/0.5MG NEB 3 ML VIAL NEB SCH ×4 (07:12→18:51)
--- NOTE | 2018-11-28 07:46 | Family Medicine Progress Note ---
Date of Service November 28, 2018 Assessment & Plan (1) Pneumonia: 58 y/o F Hx ETOH abuse, COPD, smoker, depression. Presents with progressive SOB and a productive cough for 2-3 weeks. The pt was hypoxic on arrival to the ER, requiring 3L 02. Initial labs are notable for an elevated lactic acid, low magnesium and an alcohol level of 247. A CT of the chest shows lingular and left lower lobe opacities. On 08/13/18 she was admitted to the ICU with strep pneumonia and severe sepsis. It is not clear how much of the current findings on imaging are residual. #)Pneumonia. Patient recently admitted to the ICU with strep pneumonia and severe sepsis approximately 3 months ago. Initially in the ED she was given Vanco Zosyn, doxy pending culture results and out of concern for H CAP MRSA results came back negative DC'd Vanco is doxy will cover MRSA as well. Discontinued Zosyn -> transitioned to oral doxy Trend daily CBC Follow-up cultures no growth to date #) COPD exacerbation Patient is a history of COPD not on oxygen at home. Continue O2 protocol Continue scheduled nebs Continue IV methylprednisolone 40 mgs BID #) Alcohol withdrawal Patient is a history of chronic alcoholism, has been admitted to [facility] for this several times before. Patient does appear motivated to change this time. Will continue counseling over the coming week Placed on AW SS protocol, with gabapentin, and PRN Ativan for severe withdrawal symptoms Provided multivitamin with thiamine folic acid Monitor for signs and symptoms of seizure development the next 2 days is when delirium tremens would traditionally present Continue positive reinforcement and encouragement -Clinically appears to be doing better #) Depression Continue home meds #)DVT prophylaxis Initiated Lovenox yesterday, overnight patient required increasing oxygen and her hemoglobin decreased. Temporarily held Lovenox and obtain repeat hemoglobin demonstrating stabilized being at 10.8, upon review of her records this appears to be her normal. No longer requiring additional oxygen satting 90% on room air Resumed Lovenox for DVT prophylaxis Diet: Normal Full code DVT PPX: lovenox Dispo: Discharge pending clinical improvement (2) Shortness of breath: (3) Alcohol use with intoxication: Supervising Physician Co-Signing Physician Notes Attending attestation Pt seen and examined in concert with Dr. Hernandez. In agreement with the documented findings as noted in the resident documentation with any exceptions or additions as noted here. Gradually improving shortness of breath subjectively, tolerating NC at rest well with desaturation with ambulation. Fair air movement on exmaination with scattered wheezing throughout Pneumonia with acute hypoxic respiratory failure in the setting of COPD with exacerbation - complete course of PO doxycycline and prednisone with taper. Continue outpatient albuterol therapy. Alcohol abuse with withdrawal and h/o DT - despite counseling, defers rehab referral inpatient. Case management resources provided. Else see resident documentation as noted. Results & Data Vital Signs (Past 12 Hours) Vital Signs Temp Pulse Resp BP BP Pulse Ox 11/28/18 07:27 36.4 C L 77 19 117/74 94 11/28/18 07:12 70 16 90 11/28/18 04:37 36.4 C L 88 24 133/80 90 11/27/18 23:39 36.8 C 86 20 125/72 94 PG Care Time/CCT Total # of Minutes Spent Total Time Spent with Patient: Total time spent is greater than 50% in coordination of care (as documented) at patient's floor/unit and/or counseling patient: (1) Pneumonia Laterality: unspecified laterality Lung location: unspecified part of lung Pneumonia type: due to unspecified organism Qualified Code(s): J18.9 - Pneumonia, unspecified organism
[2018-11-28] MEDS ORDERED: predniSONE 20 MG TAB PO SCH (09:00)
[2018-11-28] MEDS: FOLIC ACID 1 MG TAB PO SCH (11:53)
[2018-11-28] MEDS: ESCITALOPRAM OXALATE 20 MG TAB PO SCH (11:53)
[2018-11-28] MEDS: DOXYCYCLINE HYCLATE 100 MG CAP PO SCH (11:53)
[2018-11-28] MEDS: DIVALPROEX EXTENDED RELEASE 500 MG TAB PO SCH (11:53)
[2018-11-28] MEDS: THIAMINE HCL 100 MG in SYRINGE 9 ML IV SCH (11:54)
[2018-11-28] MEDS: LORazepam 1 MG/2 ML VIAL IV PRN (17:00)
--- NOTE | 2018-11-28 18:53 | Discharge Summary ---
Date of Service November 28, 2018 Admission HPI Per Admitting Provider 58 y/o F Hx ETOH abuse, COPD, smoker, depression. Presents with progressive SOB and a productive cough for 2-3 weeks. The pt was hypoxic on arrival to the ER, requiring 3L 02. Initial labs are notable for an elevated lactic acid, low magnesium and an alcohol level of 247. A CT of the chest shows lingular and left lower lobe opacities. On 08/13/18 she was admitted to the ICU with strep pneumonia and severe sepsis. It is not clear how much of the current findings on imaging are residual. PMH: 1) ETOH abuse 2) COPD 3) Depression 4) Smoker 5) Alcoholic hepatitis 6) Strep pneumonia Surgical: 1) Ovarian cyst 2) Surgery for retained placenta Social: Smokes a pack of cigarettes daily. Drinks Vodka daily - 2L/wk reported previously Family: Father due to an [place] Mother at age 94 Admission Exam Per Admitting Provider Gen: Denies fevers, night sweats, rigors, fatigue, malaise, weight loss/gain ENT: Denies congestion, throat pain, hearing loss Eyes: Denies acute visual changes CV: Denies CP, palpitations Pulmonary: SOB and productive cough x 2-3 weeks GI: Denies N/V, diarrhea, constipation Neuro: Denies acute or unilateral weakness, acute gait impairment, headache or acute visual changes Musculoskeletal: Denies joint pain, inflammation Endocrine: Denies polydipsia, polyuria Skin: Denies acute rashes or ulcers Principal Diagnosis Acute on chronic COPD exacerbation, alcohol withdrawal, pneumonia Discharge Exam General: Female who appears older than stated age, no longer shaking appears to have made it through withdrawal HEENT: Normocephalic atraumatic Neck: Normal to visual inspection Cardiac: Regular rate and rhythm, I did not appreciate any murmurs rubs or gallops, normal S1, normal S2, negative calf tenderness Respiratory: Restricted air movement bilaterally, coarse breath sounds, GI: Obese abdomen, soft, nontender, nondistended MSK: Moves all extremities no current complaints Neuro: Alert and oriented x4 Psych: calm, cooperative, Discharge Data Allergies Allergy/AdvReac Type Severity Reaction Status Date / Time RACIEL Inhibitors AdvReac Mild COUGH Verified 11/24/18 22:37 naltrexone [From Vivitrol] AdvReac Unknown Unverified 11/24/18 22:37 Consultations 11/25/18 01:46 ED Decision to Admit Stat 11/25/18 10:30 Consult Case Management - Discharge Planning Routine Ordered Studies 11/25/18 00:00 CT angio chest PE protocol Urgent Hospital Course (1) Pneumonia: 58 y/o F Hx ETOH abuse, COPD, smoker, depression. Presents with progressive SOB and a productive cough for 2-3 weeks. The pt was hypoxic on arrival to the ER, requiring 3L 02. Initial labs are notable for an elevated lactic acid, low magnesium and an alcohol level of 247. A CT of the chest shows lingular and left lower lobe opacities. On 08/13/18 she was admitted to the ICU with strep pneumonia and severe sepsis. It is not clear how much of the current findings on imaging are residual. #)Pneumonia. Patient recently admitted to the ICU with strep pneumonia and severe sepsis approximately 3 months ago. Initially in the ED she was given Vanco Zosyn, doxy pending culture results and out of concern for H CAP. MRSA results came back negative DC'd Vanco is doxy will cover MRSA as well. Discontinued Zosyn -> transitioned to oral doxy to complete the remaining 4 days as an outpatient Daily CBC was trended unremarkable Follow-up cultures no growth to date #) COPD exacerbation Patient is a history of COPD not on oxygen at home. Continue O2 protocol Continue scheduled nebs Continue IV methylprednisolone 40 mgs BID converted to po for d/c -Utilize had increasing oxygen requirements, two-step was performed. Patient now on continuous 2 L O2 as outpatient #) Alcohol withdrawal Patient is a history of chronic alcoholism, has been admitted to [facility] for this several times before. Patient does appear motivated to change this time. Will continue counseling over the coming week Placed on AW SS protocol, with gabapentin, and PRN Ativan for severe withdrawal symptoms Provided multivitamin with thiamine folic acid Patient was monitored for signs and symptoms of seizure development/delirium tremens Continue positive reinforcement and encouragement -Throughout her admission we spent a great deal of time counseling on alcohol addiction, strategies to avoid relapse. We strongly advised the patient be discharged directly to rehab, the patient firmly denied this. She stated she had to go home first. She states after going home she will then proceed to rehab #) Depression Continue home meds #)DVT prophylaxis Initiated Lovenox day 2 of hospitalization, overnight patient required increasing oxygen and her hemoglobin decreased. Temporarily held Lovenox and obtain repeat hemoglobin demonstrating stabilized being at 10.8, upon review of her records this appears to be her normal. No longer requiring additional oxygen satting 90% on room air Resumed Lovenox for DVT prophylaxis Diet: Normal Full code DVT PPX: lovenox Dispo: Discharge pending clinical improvement Total Time Total Time Spent Total Time Spent (In Minutes): >30 Discharge Plan Discharge Items Patient Disposition: Home - Self-Care Reason For Visit: PNM, INTOXICATION Discharge Diagnosis: Acute on chronic COPD exacerbation, pneumonia, and alcohol withdrawal Discharge Goals: Therapeutic intervention Activity: As commented below Activity Comment: Do not drink alcohol!!!! Non-emergency contact: Primary Care Provider Call non-emergency contact if: you have any medication questions, your symptoms worsen and your temperature is above 101.5 Follow-up/Referrals: Bentley Childs Jr, [Primary Care Provider] - 12/02/18 10:30 am (Please, follow up with Dr. Childs on SaturdayDecember 02 at 10:30 am. If you have any questions, call the office at [phone].) Diet: Heart Healthy Addtl Provider Instructions: Care instructions: You were admitted to [facility] for treatment of COPD exacerbation, pneumonia, alcohol withdrawal. I congratulate you on making it through alcohol withdrawal, and strongly urged you to avoid the people and situations that led to drinking initially. Please do not consume alcohol!!! A discharge summary will be sent to your primary care physician to ensure continuity of care.Please bring this discharge summary with you to your next office appointment so that your provider can review it at that time. Follow-up appointments: - Keep all your follow-up appointments as already scheduled. If you cannot make an appointment, notify your provider. - Please call to request a follow-up appointment with your primary care physician within one week of discharge. Please let us know if you are unable to obtain an appointment Medications: - Your medication list has been reviewed and reconciled upon discharge to ensure accuracy and continuity of care. - You are provided with a list of all your current medications at this time. Please review this list closely and make note of any changes. - Please take all of your medications exactly as prescribed. - Tell your primary care provider if you cannot afford your medications. - Call your primary care provider if you are having any side effects or any other problems. - Call your primary care provider before taking any over the counter medications or supplements, including herbals and vitamins, because some of these may interact with your current medications and/or make your symptoms worse. Your medications have been called into the [facility] Please continue to take doxycycline for 4 more days 2 times per day Please continue to take prednisone for 4 more days 20 mg 2 times a day You have been prescribed Combivent is the equivalent of DuoNeb's which she received in the hospital, please take this up to 4 times a day and spaced evenly throughout the day Her oxygen requirements have been increased to 2 L continuously throughout the day please use oxygen. Do not smoke while using oxygen the oxygen tank will blow up and you could be seriously harmed Symptoms: Please call your primary care provider for symptoms including, but not limited to: fevers (temperatures greater than 100.4), chills, intractable nausea or vomiting, diarrhea, rash, shortness of breath, bleeding, pain, or if you experience any worsening of the symptoms that brought you to the hospital. For EMERGENCY and VERY SERIOUS health-related issues, such as chest pain, shortness of breath, or sudden onset of the symptoms that brought you to the hospital, you may need to call 911 or go directly to the Emergency Room It has been our privilege to take care of you during your hospital stay. And Above All Else Fell Better! Best Wishes, Juan Hernandez MD PGY1 Resident, Family & Community Medicine [facility] Residency at [facility] - [address], [address] : [place] [address] Prescriptions: New doxycycline hyclate 100 mg Capsule 100 mg PO BID 4 Days Qty: 8 RF: 0 Combivent Respimat 20-100 mcg/actuation mist 1 puffs INH QID Qty: 4 RF: 3 prednisone 20 mg Tablet 20 mg PO BID 4 Days Qty: 8 RF: 0 Continued trazodone 100 mg tablet PO DAILY PRN (Reason: Unknown) RF: 0 divalproex 500 mg tablet extended release 24 hr 500 mg PO DAILY RF: 0 dextroamphetamine-amphetamine [Adderall] 5 mg tablet 7.5 mg PO BID RF: 0 escitalopram oxalate [Lexapro] 20 mg tablet 20 mg PO DAILY RF: 0 Symbicort 80-4.5 mcg/actuation Hfa Aerosol Inhaler 2 puff INHALATION BID RF: 0 albuterol sulfate 90 mcg/actuation HFA aerosol inhaler 2 inha INH Q6H PRN (Reason: shortness of breath or wheezing) Qty: 8 RF: 0 Stand-Alone Forms: [employer]/Other Patient Handouts: Addiction Alcohol, Quit Smoking Get Support Discharge Orders: Discharge Order (Routine); Ordered 11/28/18 Ordered By: Juan Hernandez Admission Data Admit Date/Time: 11/25/18 03:24 Attending Provider: Abel Bean Admit Provider: Ezequiel Karimi Primary Care Provider: Bentley Childs Jr Other Providers: Ezequiel Karimi Service: Telemetry Other Interventions: Discharge Summary Assessment (RN) Last Done: 11/28/18 19:32 DC Date/Time DO NOT enter until pt leaves facility: 11/28/18 19:55 Supervising Physician Co-Signing Physician Notes Attending attestation Pt seen and examined in concert with Dr. Hernandez. In agreement with the documented findings as noted in the resident documentation with any exceptions or additions as noted here. Shortness of breath persists but is improved at rest on 2L NC with mild nonproductive cough. On examination, diffusely decreased breath sounds with fair air movement and mild wheeze without rales. Pneumonia in the setting of COPD with exacerbation - complete course of doxycycline and prednisone with continued home Combivent and ICS therapy. Home on 2LNC (now continuous from qHS) Alcohol abuse with withdrawal - thiamine/MVI replete with hydration and treatment for withdrawal with ativan and gabapentin with resolution. Deferred rehabilitation services after extensive counseling. Else see resident documentation as noted. Resident Activity Tracking Resident Involvement: Resident Care Provided Care Provided: Adult Hospital Medicine
[2018-11-28] MEDS ORDERED: GABAPENTIN 600 MG TAB PO SCH (23:00)
== END 2018-11-28 19:55 | disposition home or self-care (01) | DRG 194 ==
LOC: ED 21:38 → SUATTDRO 11-25 03:24 → 2S 11-25 03:24

== ENCOUNTER 2019-01-21 19:36 | Inpatient (IN) ==
[2019-01-21] MEDS ORDERED: ALBUT/IPRATROP 3MG/0.5MG NEB 3 ML VIAL NEB ONE (19:50)
[2019-01-21] MEDS ORDERED: MAGNESIUM SULFATE / D5W 1 GM/100 ML BAG IV ONE (19:50)
[2019-01-21] MEDS ORDERED: methylPREDNISolone 60 MG in SYRINGE 1 ML IV STA (19:50)
[2019-01-21] MEDS ORDERED: MULTI-VITAMIN INFUSION 10 ML, THIAMINE HCL 100 MG, FOLIC ACID 1 MG in SODIUM CHLORIDE 0... IV ONE (19:50)
[2019-01-21 20:37] LABS: Alanine Aminotransferase 28 U/L (12-78); Albumin Level 3.1 gm/dl (3.4-5.0); Aspartate Aminotransferase 38 U/L (15-37); BUN Creatinine Ratio 15.4 (10-20); Blood Urea Nitrogen 9 mg/dl (7-18); Calcium 9.5 mg/dl (8.5-10.1); Carbon Dioxide 31 mmol/L (21-32); Chloride 102 mmol/L (98-107); Est GFR (African American) 116.3; Est GFR (Non-African American) 100.3; Glucose 88 mg/dl (70-99); Potassium 3.9 mmol/L (3.5-5.1); Sodium 142 mmol/L (136-145)
[2019-01-21 20:42] LABS: Albumin Globulin Ratio 0.7 (0.9-2); Alkaline Phosphatase 158 U/L (45-117); Bilirubin,Total 0.3 mg/dl (0.2-1); Creatine Kinase 30 U/L (26-192); Creatine Kinase MB < 1.0 ng/ml (0.5-3.6); Globulin 4.7 gm/dl (2.5-4.0); Hematocrit (blood only) 35.2 % (37-47); Hemoglobin 11.1 g/dL (12.0-16.0); Mean Corpuscular Hgb Conc 31.5 g/dL (32-36); Mean Platelet Volume 9.4 fL (7.4-10.4); Platelet Count 197 K/uL (130-400); RDW Coefficient of Variation 14.2 % (11.5-14.5); RDW Standard Deviation 46.8 fL (36.4-46.3); Red Blood Count 3.87 M/uL (4.2-5.4); Total Protein 7.8 gm/dl (6.4-8.2); Troponin I < 0.015 ng/ml (0-0.045); White Blood Count 8.96 K/uL (4.8-10.8)
[2019-01-21 20:44] LABS: Basophils # (auto) 0.02 K/uL (0-0.2); Basophils % (auto) 0.2 %; Eosinophils # (auto) 0.03 K/uL (0-0.5); Eosinophils % (auto) 0.3 %; Immature Granulocytes # (auto) 0.03 K/uL (0.00-0.02); Immature Granulocytes % (auto) 0.3 %; Lymphocytes # (auto) 1.88 K/uL (1.2-3.4); Monocytes # (auto) 0.67 K/uL (0.11-0.59); Monocytes % (auto) 7.5 %; Neutrophils # (auto) 6.33 K/uL (1.4-6.5); Neutrophils % (auto) 70.7 %; Platelet Estimate Normal (Normal)
[2019-01-21] MEDS ORDERED: methylPREDNISolone 125 MG/2 ML VIAL ONE (20:45)
--- NOTE | 2019-01-21 21:36 | XRay Report ---
XR chest 1V portable CLINICAL HISTORY: 58 years-old Female presenting with Chest Pain. TECHNIQUE: Portable upright AP view of the chest was obtained. COMPARISON: 11/24/2018. FINDINGS: Atherosclerosis of the aortic arch. Cardiac silhouette borderline enlarged. Numerous calcified granul omata. Left basilar opacity suggested, new from prior. No pleural effusion or pneumothorax. Degenerat germania changes of the thoracic spine. Upper abdomen normal. IMPRESSION: 1. Findings suspicious for a left basilar or lingular pneumonia. Consider PA and lateral views for b traci assessment and localization. 2. Borderline cardiomegaly. No volume overload. Electronically signed by: Akil Butcher M.D. 01/21/2019 9:35 PM
[2019-01-21] MEDS ORDERED: LEVOFLOXACIN/D5W 750 MG/150 ML BAG IV STA (21:40)
[2019-01-21] MEDS ORDERED: VANCOMYCIN HCL 1,000 MG/270 ML BAG IV STA (21:40)
[2019-01-21] MEDS ORDERED: PIPERACILLIN/TAZOBACTAM 4.5 GM/120 ML BAG IV ONE (21:40)
[2019-01-21] MEDS ORDERED: PIPERACILL/TAZOBAC CONSULT ACTIVE PRN (21:40)
[2019-01-21] MEDS ORDERED: VANCOMYCIN CONSULT ACTIVE PRN (21:40)
--- NOTE | 2019-01-21 22:30 | History & Physical Report ---
Date of Service January 21, 2019 Assessment & Plan (1) Shortness of breath: Ms. Aguirre is a 58yo with a PMHx significant for alcohol abuse, COPD, ADHD, Anxiety/Depression and sleep disturbance who presents with SOB for the past few days and was found to have a pneumonia. Aspiration Pneumonia -pt with SOB of 4 days duration with increasing use of oxygen concentrator of 4L during the day -At baseline uses oxygen concentrator at home at night. -Noted home pulse ox <90 with activity, afebrile, no WBC but chest XR with left basilar/lingular opacity suggestive of an aspiration pneumonia. -pt on admission requiring 5L of oxygen, currently on biPAP. -will treat with Unasyn 1.5g q6h. -Pt s/p doses of Levaquin, vancomycin and zosyn in the ED. Can consider treating for HAP/HCAP given recent November hosp. -will get a speech therapy eval -will trend CBC, monitor oxygen requirements. COPD exacerbation -Pt with increased cough and sputum production -will hold home albuterol; start on scheduled nebs here -will start on methylpred 80mg q8h -can consider adding azithromycin for antiinflammatory effect and further atypical coverage -continue home symbicort, combivent -continue to monitor Alcohol abuse -Pt ambivalent about whether she will be going to rehab upon discharge -However, opts for AWSS instead of alcohol while hospitalized -Last drink tonight before admission; drinks about 1/2L vodka per day. -Placed on AWSS protocol with Ativan -Daily banana bags with thiamine and folate -Case management consulted for discharge planning Hx of ADHD -continue home adderall Hx of Depression -continue home Lexapro, depakote Hx of sleep disturbance -continue home trazodone FEN/GI: Regular diet CODE STATUS: Full DVT prophylaxis: Lovenox, SCDs Dispo: Med/Surg with tele History of Present Illness Primary Care Provider: Bentley Childs Jr, DO Ms. Aguirre is a 58yo with a PMHx significant for alcohol abuse, COPD, ADHD, Anxiety/Depression and sleep disturbance who presents with SOB for the past few days and was found to have a pneumonia. Pt's also in the room and states she started having this SOB about 3-4 days ago where he noted the increased need for the oxygen concentrator during the day. States she usually uses it only at night. Her SOB has also been associated with an increase in cough and clear sputum production. Has also been having fevers, chills and night sweats at home. States that her breathing is better when she lays down and worse on exertion as noted by the home pulse ox which gave readings less than 90 with exertion. also noted that she was a bit confused at home as well. PMHx: COPD, depression, alcohol abuse, ADHD, sleep disturbance. Allergies: RACIEL inhibitors SH: lives at home with in [address] home; smoked for 44years 1.5ppd at her heaviest. Drinks 0.5L of vodka a day. No recreational drug use. Not sure if she would like to go to rehab after this hospital stay. Allergies Allergy/AdvReac Type Severity Reaction Status Date / Time RACIEL Inhibitors AdvReac Mild COUGH Verified 11/24/18 22:37 naltrexone [From Vivitrol] AdvReac Unknown Unverified 11/24/18 22:37 Home Medications Home Medications Medication Instructions Recorded Confirmed Type Symbicort 2 puff INHALATION BID 08/13/18 01/21/19 History dextroamphetamine-amphetamine 7.5 mg PO BID 08/13/18 01/21/19 History [Adderall] divalproex 500 mg PO DAILY 08/13/18 01/21/19 History escitalopram oxalate [Lexapro] 20 mg PO HS 08/13/18 01/21/19 History trazodone 100 mg PO DAILY PRN 08/13/18 01/21/19 History albuterol sulfate 2 inha INH Q6H PRN #8 gm 08/20/18 01/21/19 Rx ipratropium-albuterol [Combivent 1 puffs INH QID #4 gm 11/28/18 01/21/19 Rx Respimat] Past Med/Surg History Medical History Tachycardia (Acute 08/17/13) Alcohol withdrawal syndrome (Acute) COPD (chronic obstructive pulmonary disease) (Chronic) Asthma (Chronic) Jaundice (Acute) Leukocytosis (Acute 04/21/14) Liver failure, acute (Acute 04/21/14) ETOH abuse (Resolved 08/17/13) Alcoholic hepatitis (Chronic) Left lower lobe pneumonia Surgical History S/P removal of ovarian cyst Family History Father Hypertension Social History Preferred Language: Slovenian Communication Ability: Effective Experience Designer Required: No Beliefs That Will Affect Care: None marital status: Current Living Situation: Spouse Other Information That Helps Us Care for You: No Feels Safe at Home: Yes Safety Concerns: Feels Safe At This Time Smoking Status: Current every day smoker Tobacco Type: cigarettes ; Cigarettes Per Day: 20 ; Second Hand Exposure: Yes ; Tobacco Cessation Education Requested by Patient: No Hx Alcohol Use: Yes Alcohol type: hard liquor Alcohol Intake Frequency Comment: Drinking heavily for past 8 months, former alcohol dependent Hx Substance Use: Yes substance use type: marijuana Last Used Substance: Days (ago) Review of Systems Constitutional: + fever, + chills, + sweats and + fatigue Eyes: no worsening vision Ear, Nose, Mouth, Throat: no nasal congestion and no sore throat Respiratory: + cough, + dyspnea, + dyspnea on exertion and + wheezing Cardiovascular: + dyspnea and + dyspnea on exertion; no chest pain, no palpitations, no lightheadedness, no edema and no calf pain Gastrointestinal: no abdominal pain, no nausea, no vomiting, no constipation and no diarrhea/loose stools Genitourinary: no dysuria and no hematuria Integumentary: no rash Neurologic: + confusion; no headache(s) Physical Exam Constitutional: cooperative and + in distress Eyes: PERRL, conjunctivae normal, anicteric sclerae ENMT: external ear and nose normal, oropharynx normal Neck: normal visual inspection Respiratory: + labored breathing (with oxygen mask on face) Auscultation: + diminished lung sounds (and coarse) Cardiovascular: Rate/Rhythm: regular rate and regular rhythm Heart Sounds: normal S1 and normal S2 Gastrointestinal (Abdomen): normal bowel sounds, soft, nontender, no hepatosplenomegaly Musculoskeletal: no cyanosis or clubbing, extremities motor strength 5/5 Skin: no rashes, warm and dry Neurologic: PERRL, EOMI, accommodation nl, no face palsy, no dysarthria (AAOx3) Results & Data Vital Signs (Past 12 Hours) Vital Signs Temp Pulse Pulse Resp BP Pulse Ox 01/21/19 21:30 92 H 37 H 135/62 99 01/21/19 21:00 91 H 18 126/63 100 01/21/19 20:59 96 H 18 100 01/21/19 20:56 98 H 16 121/79 100 01/21/19 20:32 100 H 25 H 100 01/21/19 20:08 92 H 22 93 01/21/19 19:45 89 L 01/21/19 19:41 37 C 103 H 28 H 131/72 83 L Laboratory Results Laboratory Results - last 24 hr 01/21/19 01/21/19 01/21/19 19:57 19:57 20:03 WBC 8.96 RBC 3.87 L Hgb 11.1 L Hct 35.2 L MCV 91.0 MCH 28.7 MCHC 31.5 L RDW Std Deviation 46.8 H RDW Coeff of Don 14.2 Plt Count 197 MPV 9.4 Immature Gran % (Auto) 0.3 Neut % (Auto) 70.7 Lymph % (Auto) 21.0 [place] % (Auto) 7.5 Eos % (Auto) 0.3 Baso % (Auto) 0.2 Immature Gran # (Auto) 0.03 H Neut # (Auto) 6.33 Lymph # (Auto) 1.88 [place] # (Auto) 0.67 H Eos # (Auto) 0.03 Baso # (Auto) 0.02 Platelet Estimate Normal Sodium 142 Potassium 3.9 Chloride 102 Carbon Dioxide 31 Anion Gap 9.0 BUN 9 Creatinine 0.59 L Est Cr Clr Drug Dosing Not Reportable Est GFR ( Amer) 116.3 Est GFR (Non-Af Amer) 100.3 BUN/Creatinine Ratio 15.4 Glucose 88 Calcium 9.5 Total Bilirubin 0.3 AST 38 H ALT 28 Alkaline Phosphatase 158 H Total Creatine Kinase 30 CK-MB (CK-2) < 1.0 CK/CKMB % Calc TNP Troponin I < 0.015 Total Protein 7.8 Albumin 3.1 L Globulin 4.7 H Albumin/Globulin Ratio 0.7 L Lipase 243 Ethyl Alcohol mg/dL 176.0 H Medications Administered Home Medications Symbicort 2 puff INHALATION BID 08/13/18 [History Confirmed 01/21/19] dextroamphetamine-amphetamine [Adderall] 7.5 mg PO BID 08/13/18 [History Confirmed 01/21/19] divalproex 500 mg PO DAILY 08/13/18 [History Confirmed 01/21/19] escitalopram oxalate [Lexapro] 20 mg PO HS 08/13/18 [History Confirmed 01/21/19] trazodone 100 mg PO DAILY PRN 08/13/18 [History Confirmed 01/21/19] albuterol sulfate 2 inha INH Q6H PRN #8 gm 08/20/18 [Rx Confirmed 01/21/19] ipratropium-albuterol [Combivent Respimat] 1 puffs INH QID #4 gm 11/28/18 [Rx Confirmed 01/21/19] Active Medications Vancomycin HCl (Vancomycin Hcl) 1,000 mg in 270 mls @ 125 mls/hr IV NOW STA Stop: 01/21/19 23:49 Miscellaneous Information (Consult) 1 ea N/A UD PRN PRN Reason: Consult Stop: 02/20/19 21:39 Miscellaneous Information (Consult) 1 ea N/A UD PRN PRN Reason: Consult Stop: 02/20/19 21:39 Supervising Physician Co-Signing Physician Notes Patient was seen and examined by me personally. I reviewed the chart, the orders and discussed the case in detail with Dr. Melissa Meneses MD. I read this H&P and agree with its contents to entirety. PG Care Time/CCT Total # of Minutes Spent Total Time Spent with Patient: Total time spent is greater than 50% in coordination of care (as documented) at patient's floor/unit and/or counseling patient: Resident Activity Tracking Resident Involvement: Resident Care Provided Care Provided: Adult Hospital Medicine
[2019-01-21] MEDS ORDERED: ATIVAN IV ALCOHOL WITHDRAWL IV SCH (23:58)
[2019-01-21] MEDS ORDERED: MULTI-VITAMIN INFUSION 10 ML, THIAMINE HCL 100 MG, FOLIC ACID 1 MG in SODIUM CHLORIDE 0... IV SCH (23:58)
[2019-01-21] MEDS ORDERED: LORazepam 2 MG/4 ML VIAL IV PRN (23:58)
[2019-01-21] MEDS ORDERED: LORazepam 3 MG/6 ML VIAL IV PRN (23:58)
[2019-01-22 00:57] LABS: Folate (Folic Acid) > 24.00 ng/ml (>5.38); Vitamin B12 500 pg/ml (211-911)
[2019-01-22] MEDS: PATIENT'S HEIGHT AND/OR WEIGHT NEEDED SCH ×2 (01:25→02:57)
--- NOTE | 2019-01-22 01:36 | Emergency Department Note ---
Entered by Italia Sahni acting as a scribe for Bright Morrison MD History of Present Illness General Chief complaint: Respiratory Problems Stated complaint: can't breathe Time Seen by Provider: 01/21/19 19:45 Source: patient History of Present Illness Provider complaint: Respiratory problems Onset (ago): week(s) 2 Location: chest Pain Consistency: + constant Maximum Pain Intensity: 5 Quality: + constant Associated symptoms: + cough, + shortness of breath and + other (Positive: trouble breathing) The patient is a 58 year old female with past medical history of pneumonia, sepsis, SOB, hypoxia, DVT prophylaxis, who presents to the ED with complaints of constant trouble breathing that started two weeks ago. The patient reports she has shortness of breath and cough. She notes this is what happens when she drinks. The patient states her last alcoholic drink was this morning. Home Medications Home Medications Medication Instructions Recorded Confirmed Type Symbicort 2 puff INHALATION BID 08/13/18 01/21/19 History dextroamphetamine-amphetamine 7.5 mg PO BID 08/13/18 01/21/19 History [Adderall] divalproex 500 mg PO DAILY 08/13/18 01/21/19 History escitalopram oxalate [Lexapro] 20 mg PO HS 08/13/18 01/21/19 History trazodone 100 mg PO DAILY PRN 08/13/18 01/21/19 History albuterol sulfate 2 inha INH Q6H PRN #8 gm 08/20/18 01/21/19 Rx ipratropium-albuterol [Combivent 1 puffs INH QID #4 gm 11/28/18 01/21/19 Rx Respimat] Allergies Allergy/AdvReac Type Severity Reaction Status Date / Time RACIEL Inhibitors AdvReac Mild COUGH Verified 11/24/18 22:37 naltrexone [From Vivitrol] AdvReac Unknown Unverified 11/24/18 22:37 Past Med/Surg History Medical History Tachycardia (Acute 08/17/13) Alcohol withdrawal syndrome (Acute) COPD (chronic obstructive pulmonary disease) (Chronic) Asthma (Chronic) Jaundice (Acute) Leukocytosis (Acute 04/21/14) Liver failure, acute (Acute 04/21/14) ETOH abuse (Resolved 08/17/13) Alcoholic hepatitis (Chronic) Left lower lobe pneumonia Surgical History S/P removal of ovarian cyst Family History Father Hypertension Social History Preferred Language: Croatian Communication Ability: Effective Marketing Agent Required: No Beliefs That Will Affect Care: None marital status: Current Living Situation: Spouse Other Information That Helps Us Care for You: No Feels Safe at Home: Yes Safety Concerns: Feels Safe At This Time Smoking Status: Current every day smoker Tobacco Type: cigarettes ; Cigarettes Per Day: 20 ; Second Hand Exposure: Yes ; Tobacco Cessation Education Requested by Patient: No Hx Alcohol Use: Yes Alcohol type: hard liquor Alcohol Intake Frequency Comment: Drinking heavily for past 8 months, former alcohol dependent Hx Substance Use: Yes substance use type: marijuana Last Used Substance: Days (ago) Review of Systems See HPI for pertinent positives & negatives. and A total of 10 systems reviewed and were otherwise negative Physical Exam Vital Signs Vital Signs - 24 hr 01/21/19 19:41 01/21/19 19:45 01/21/19 20:08 Temperature 37 C Temperature Source Oral Sepsis Recent Fever Within 48 Hours No Sepsis Action Taken by Nursing No Action Required Pulse Rate 103 H Pulse Rate [Right Finger] 92 H Pulse Rate from SpO2 Sensor Respiratory Rate 28 H 22 Respiratory Effort / Characteristics Spontaneous Labored Spontaneous Short of Breath SOB on Exertion Respiratory Depth Normal Respiratory Pattern Blood Pressure 131/72 Blood Pressure Mean 91 Pulse Oximetry 83 L 89 L 93 Oxygen Delivery Method Room Air Nasal Cannula Nasal Cannula Oxygen Flow Rate 4 5 Fraction of Inspired Oxygen 01/21/19 20:32 01/21/19 20:56 01/21/19 20:59 Temperature Temperature Source Sepsis Recent Fever Within 48 Hours Sepsis Action Taken by Nursing Pulse Rate 100 H 98 H 96 H Pulse Rate [Right Finger] Pulse Rate from SpO2 Sensor 96 H 96 H Respiratory Rate 25 H 16 18 Respiratory Effort / Characteristics Spontaneous SOB on Exertion Respiratory Depth Normal Respiratory Pattern Regular Blood Pressure 121/79 Blood Pressure Mean 93 Pulse Oximetry 100 100 100 Oxygen Delivery Method Oxygen Flow Rate Fraction of Inspired Oxygen 40 01/21/19 21:00 01/21/19 21:30 01/21/19 22:00 Temperature Temperature Source Sepsis Recent Fever Within 48 Hours Sepsis Action Taken by Nursing Pulse Rate 91 H 92 H 90 Pulse Rate [Right Finger] Pulse Rate from SpO2 Sensor 92 H 92 H 91 H Respiratory Rate 18 37 H 16 Respiratory Effort / Characteristics Respiratory Depth Respiratory Pattern Blood Pressure 126/63 135/62 120/73 Blood Pressure Mean 84 86 88 Pulse Oximetry 100 99 100 Oxygen Delivery Method BiPAP Oxygen Flow Rate Fraction of Inspired Oxygen GENERAL: Awake, alert, well-appearing, in no acute distress HENT: Normocephalic, atraumatic. Oropharynx unremarkable. EYES: Normal conjunctiva. Sclera non-icteric. NECK: Supple. No nuchal rigidity. FROM. No JVD. RESPIRATORY: Bilateral wheezing present. CARDIAC: Regular rate, normal rhythm. Extremities warm and well perfused. Pulses equal. ABDOMEN: Soft, non-distended. No tenderness to palpation. No rebound or guarding. No masses. RECTAL: Deferred. MUSCULOSKELETAL: Chest examination reveals no tenderness. The back is symmetrical on inspection without obvious abnormality. There is no CVA tenderness to palpation. No joint edema. LOWER EXTREMITIES: Calves are equal size bilaterally and non-tender. No edema. No discoloration. NEURO: Normal sensorium. No sensory or motor deficits noted. SKIN: No rash or jaundice noted. Course 1944: The patient was evaluated in room C10. A complete history and physical exam was performed. 2134: I discussed the patient's case with Dr. Wadsworth, [facility] Hospitalist. He will evaluate the patient for further management. 2139: Upon reevaluation, the patient is resting comfortably. I discussed laboratory and radiographic results with her. The patient verbalized agreement of the treatment plan. The patient will be evaluated for further management and care. Administered Medications Miscellaneous (Patient's Height And/Or Weight Needed) 1 ea N/A Q2H YASMANI Stop: 01/22/19 06:00 Last Admin: 01/22/19 01:25 Dose: 1 ea Documented by: [id number] Discontinued Medications Albuterol (Duoneb) 12 ml NEB ONE ONE Stop: 01/21/19 19:51 Last Admin: 01/21/19 20:00 Dose: 12 ml Documented by: [id number] Magnesium Sulfate/Dextrose (Magnesium Sulfate / D5w) 1 gm in 100 mls @ 100 mls/hr IV ONE ONE Stop: 01/21/19 20:49 Last Infusion: 01/21/19 21:46 Dose: 0 mls/hr Documented by: [id number] Admin: 01/21/19 20:46 Dose: 100 mls/hr Documented by: [id number] Methylprednisolone 60 mg/ (Syringe) 1.96 mls @ 1.5 mls/min IV NOW STA Stop: 01/21/19 19:51 Last Admin: 01/21/19 20:46 Dose: Not Given Documented by: [id number] Multivitamins 10 ml/ Thiamine HCl 100 mg/ Folic Acid 1 mg/Sodium Chloride 1,011.2 mls @ 1,011.2 mls/hr IV .Q1H ONE Stop: 01/21/19 20:49 Last Infusion: 01/21/19 22:30 Dose: 0 mls/hr Documented by: [id number] Admin: 01/21/19 21:24 Dose: 1,011.2 mls/hr Documented by: [id number] Levofloxacin/Dextrose (Levaquin/D5w) 750 mg in 150 mls @ 100 mls/hr IV NOW STA Stop: 01/21/19 23:09 Last Infusion: 01/22/19 01:25 Dose: 0 mls/hr Documented by: [id number] Admin: 01/21/19 22:37 Dose: 100 mls/hr Documented by: [id number] Piperacillin Sod/Tazobactam Sod (Zosyn) 4.5 gm in 120 mls @ 240 mls/hr IV NOW ONE Stop: 01/21/19 22:09 Last Infusion: 01/21/19 22:32 Dose: 0 mls/hr Documented by: [id number] Admin: 01/21/19 22:01 Dose: 240 mls/hr Documented by: [id number] Vancomycin HCl (Vancomycin Hcl) 1,000 mg in 270 mls @ 125 mls/hr IV NOW STA Stop: 01/21/19 23:49 Last Admin: 01/22/19 01:25 Dose: Not Given Documented by: [id number] Methylprednisolone (Solumedrol) Confirm Administered Dose 125 mg .ROUTE .STK-MED ONE Stop: 01/21/19 20:46 Last Admin: 01/21/19 20:46 Dose: 60 mg Documented by: [id number] Medical Decision Making Differential Diagnosis Differential diagnosis: Etiologies such as infections, reactive airway disease, pneumonia, pneumothorax, COPD, CHF, cardiac ischemia, pulmonary embolism, musculoskeletal, gastrointestinal, as well as others were entertained. Medical Records Attestation: I reviewed the patient's medical records. Home Medications Current Medication List: was personally reviewed by me Laboratory Data Attestation: I reviewed the patient's lab results. Result diagrams: 01/21/19 19:57 01/21/19 19:57 Lab Results 01/21/19 01/21/19 01/21/19 Range/Units 19:57 19:57 20:03 WBC 8.96 (4.8-10.8) K/uL RBC 3.87 L (4.2-5.4) M/uL Hgb 11.1 L (12.0-16.0) g/dL Hct 35.2 L (37-47) % MCV 91.0 (80-100) fL MCH 28.7 (25-34) pg MCHC 31.5 L (32-36) g/dL RDW Std Deviation 46.8 H (36.4-46.3) fL RDW Coeff of Don 14.2 (11.5-14.5) % Plt Count 197 (130-400) K/uL MPV 9.4 (7.4-10.4) fL Immature Gran % (Auto) 0.3 % Neut % (Auto) 70.7 % Lymph % (Auto) 21.0 % [place] % (Auto) 7.5 % Eos % (Auto) 0.3 % Baso % (Auto) 0.2 % Immature Gran # (Auto) 0.03 H (0.00-0.02) K/uL Neut # (Auto) 6.33 (1.4-6.5) K/uL Lymph # (Auto) 1.88 (1.2-3.4) K/uL [place] # (Auto) 0.67 H (0.11-0.59) K/uL Eos # (Auto) 0.03 (0-0.5) K/uL Baso # (Auto) 0.02 (0-0.2) K/uL Platelet Estimate Normal (Normal) Sodium 142 (136-145) mmol/L Potassium 3.9 (3.5-5.1) mmol/L Chloride 102 (98-107) mmol/L Carbon Dioxide 31 (21-32) mmol/L Anion Gap 9.0 (3-11) BUN 9 (7-18) mg/dl Creatinine 0.59 L (0.6-1.2) mg/dl Est Cr Clr Drug Dosing Not Reportable Est GFR ( Amer) 116.3 Est GFR (Non-Af Amer) 100.3 BUN/Creatinine Ratio 15.4 (10-20) Glucose 88 (70-99) mg/dl Calcium 9.5 (8.5-10.1) mg/dl Total Bilirubin 0.3 (0.2-1) mg/dl AST 38 H (15-37) U/L ALT 28 (12-78) U/L Alkaline Phosphatase 158 H (45-117) U/L Total Creatine Kinase 30 (26-192) U/L CK-MB (CK-2) < 1.0 (0.5-3.6) ng/ml CK/CKMB % Calc TNP Troponin I < 0.015 (0-0.045) ng/ml Total Protein 7.8 (6.4-8.2) gm/dl Albumin 3.1 L (3.4-5.0) gm/dl Globulin 4.7 H (2.5-4.0) gm/dl Albumin/Globulin Ratio 0.7 L (0.9-2) Lipase 243 (73-393) U/L Ethyl Alcohol mg/dL 176.0 H (0-3) mg/dl Imaging Data Radiologist's Impression: Radiology results as stated below per my review and the radiologist's interpretation: XR chest 1V portable CLINICAL HISTORY: 58 years-old Female presenting with Chest Pain. TECHNIQUE: Portable upright AP view of the chest was obtained. COMPARISON: 11/24/2018. FINDINGS: Atherosclerosis of the aortic arch. Cardiac silhouette borderline enlarged. Numerous calcified granulomata. Left basilar opacity suggested, new from prior. No pleural effusion or pneumothorax. Degenerative changes of the thoracic spine. Upper abdomen normal. IMPRESSION: 1. Findings suspicious for a left basilar or lingular pneumonia. Consider PA and lateral views for better assessment and localization. 2. Borderline cardiomegaly. No volume overload. Electronically signed by: Akil Butcher M.D. 01/21/2019 9:35 PM ECG Data Attestation: I personally reviewed and interpreted this ECG as follows: Indication: SOB/dyspnea Rate (beats per minute): 94 Rhythm: normal sinus Findings: + other (Normal axis and intervals ); no ST depression and no ST elevation Blood Pressure Blood Pressure Findings: Low blood pressure Blood Pressure Disposition: further management by hospitalist BERNARDA Narrative This is a 58-year-old female who presents emergency department complaining of hypoxia. The patient is not normally on oxygen at home. The patient reports she was drinking alcohol today and reports that she normally has issues breathing after drinking. I strongly suspect that the patient may have aspirated. Her chest x-ray is concerning for pneumonia. She was given an hour- long breathing treatment here in the emergency department and started on BiPAP. She was also started on Solu-Medrol. She was pancultured and started on Zosyn Levaquin as well as vancomycin. I did discuss the case with the hospitalist service who agreed to admit the patient. Patient was given a banana bag in the emergency department her alcohol levels found to be elevated at 0.170. Patient family were in agreement with the treatment plan. Impression & Plan Alcohol use with intoxication, Hypokalemia, Pneumonia Critical Care Time I have personally spent greater than 30 minutes of critical care time in the direct management of this patient. This includes bedside care, interpretation of diagnostic studies, and testing, discussion with consultants, patient, and family members, and other required patient management activities. This 30 minutes is in excess of all separately billable procedures. Discharge Plan Visit Data *Final* Discharge Date/Time: 01/21/19 22:43 Chief Complaint: Respiratory Problems Stated Complaint: can't breathe ED Provider: Bright Morrison Discharge Problem: Alcohol use with intoxication, Hypokalemia, Pneumonia Patient Disposition: Admitted As Inpatient Discharge Instructions Interventions: ED Discharge Assessment Last Done: 01/21/19 22:43 Discharge Problem: Pneumonia Qualifiers: Pneumonia type: due to unspecified organism Laterality: left Lung location: lower lobe of lung Qualified Code(s): J18.1 - Lobar pneumonia, unspecified organism The scribe's documentation has been prepared under my direction and personally reviewed by me in its entirety. I confirm that the note above accurately reflects all work, treatment, procedures, and medical decision making performed by me.
[2019-01-22] MEDS: methylPREDNISolone 80 MG in SYRINGE 0 ML IV SCH ×3 (03:55→20:18)
[2019-01-22] MEDS ORDERED: PNEUMOCOCCAL ADMINISTRATION CHARGE ONE (04:45)
[2019-01-22] MEDS ORDERED: PNEUMOCOCCAL POLYSACCHARIDES 25 MCG/0.5 ML VIAL/SYR IM ONE (04:45)
[2019-01-22] MEDS: AMPICILLIN/SULBACTAM SOD 1,500 MG in 0.9 % SODIUM CHLORIDE 100 ML IV SCH ×4 (04:48→21:45)
[2019-01-22] MEDS: ENOXAPARIN INJ 40 MG/0.4 ML SYR SQ SCH (06:10)
[2019-01-22] MEDS: ALBUT/IPRATROP 3MG/0.5MG NEB 3 ML VIAL NEB SCH ×4 (07:10→19:25)
[2019-01-22 07:17] LABS: Immature Granulocytes # (auto) 0.01 K/uL (0.00-0.02); Immature Granulocytes % (auto) 0.2 %; Lymphocytes % (auto) 7.1 %; Mean Corpuscular Hgb Conc 31.3 g/dL (32-36); Mean Corpuscular Volume 91.7 fL (80-100); Mean Platelet Volume 9.2 fL (7.4-10.4); Monocytes # (auto) 0.07 K/uL (0.11-0.59); Monocytes % (auto) 1.7 %; Neutrophils # (auto) 3.82 K/uL (1.4-6.5); Platelet Count 151 K/uL (130-400); RDW Coefficient of Variation 14.2 % (11.5-14.5); RDW Standard Deviation 47.5 fL (36.4-46.3); Red Blood Count 3.49 M/uL (4.2-5.4)
[2019-01-22] MEDS: DIVALPROEX EXTENDED RELEASE 500 MG TAB PO SCH (07:49)
[2019-01-22] MEDS: BUDESONIDE/FORMOTEROL FUMARATE 80/4.5 60 PUFFS/INHALER INH SCH ×2 (07:50→20:19)
[2019-01-22] MEDS: IPRATROPIUM BROMIDE/ALBUTEROL respimat INH INH SCH ×4 (07:51→20:18)
[2019-01-22 07:52] LABS: Albumin Level 2.7 gm/dl (3.4-5.0); BUN Creatinine Ratio 17.6 (10-20); Calcium 8.6 mg/dl (8.5-10.1); Creatinine Clr Calc Pharmacy 80.2 ml/min; Est GFR (African American) 113.8; Est GFR (Non-African American) 98.2; Potassium 4.1 mmol/L (3.5-5.1)
[2019-01-22 07:55] LABS: Albumin Globulin Ratio 0.6 (0.9-2); Bilirubin,Total 0.4 mg/dl (0.2-1); Globulin 4.3 gm/dl (2.5-4.0)
[2019-01-22] MEDS: LORazepam 1 MG/2 ML VIAL IV PRN ×3 (08:02→16:35)
--- NOTE | 2019-01-22 08:52 | Family Medicine Progress Note ---
Date of Service January 22, 2019 Assessment & Plan (1) Pneumonia: CAP vs. Aspiration PNA - covering G-/G+ with Zosyn 1.5g Q6 - s/p 1 dose of levaquin vanc, zosyn in ED - CBC shows low white count (4.82) - ED CXR showed L basilar/lingula PNA. Reordered 2 view CXR. - Blood Cx pending. - Speech therapy eval pending for aspiration, if significant will add unasyn. Present on Admission?: Yes (2) Shortness of breath: Like COPD exacerbation 2/2 PNA. - Home symbicort, combivent continued - methylprednisolone IV Q8 to reduce bronchiole inflammation - ipra/alb duonebs ordered Q2 - monitoring O2 sats and oxygen requirements; currently improving. Present on Admission?: Yes (3) COPD (chronic obstructive pulmonary disease): (4) Alcohol withdrawal syndrome: - Last drink yesterday - TAVO of 6 this morning - received ativan once this AM - daily banana bags with Thiamine 100mg, Folate 1 g - B12 and Folate levels in ED were normal - blood alcohol in ED was 176 FEN/GI: regular diet DVT PPX: lovenox, SCDs Code status: full code Dispo: med/surg with tele. To go home. Present on Admission?: Yes (5) Orthostatic hypotension: - describes being dizzy upon rising out of bed quickly (6) ADHD: Holding adderall while in hospital (7) Sleep disturbance: continue home dose of trazodone (8) Depression: Questionable Depression vs. Bipolar II considering patient is on depakote and lexapro continue home doses Supervising Physician Co-Signing Physician Notes Attending attestation Pt seen and examined in concert with Dr. Chao. In agreement with the documented findings as noted in the resident documentation with any exceptions or additions as noted here. Patient reports feeling tremulous and intermittently chilled but with improvement in overall SOB and chest tightness. On examination, S1/S2 nl RRR no MCG. CTAB. Abd NT/ND BS+ve, visible resting tremor. Aspiration pneumonitis v. aPNA in the setting of COPD - responding well to neds, steroids and unasyn. Would taper solumedrol quickly starting in AM. Continue inhaler regimen. f/u BCx. Concur that pt's aspiration is likely etOH related. Avoid oversedation. Alcohol withdrawal - ativan protocol to avoid oversedation in the setting of potential aspiration. Daily banana bag/folate x 5 day total Else see resident documentation as noted. Subjective Pt is a 58 yo F with a PMH of alcoholism (0.5 L vodka/day), COPD, ADHD, Anxiety /depression here for SOB for the past few days. Found to have PNA of L lingula/L lower lobe on CXR. This morning is breathing better, denies pleurisy, breathing comfortably on 3L NC which is down from 6L overnight. Pt is also being treated for alcohol withdrawal. Last drink was yesterday. Review of Systems Constitutional: + fever and + chills Respiratory: + cough (nonproductive, worse than normal COPD cough); no change in sputum, no dyspnea, no pain on inspiration and no pain with cough Cardiovascular: no chest pain, no dyspnea, no palpitations and no edema Gastrointestinal: no abdominal pain, no nausea, no vomiting, no constipation and no diarrhea/loose stools Physical Exam Constitutional: + ill appearing, + physical limitations, + disheveled, + let hargic and + overweight Eyes: PERRL, reactive pupils, + pinpoint pupils and + EOM movement deficit (mild horizontal nystagmus on exam, no vertical nystagmus); no photophobia Respiratory: normal respiratory effort and + cough; no respiratory distress and no audible wheezes Auscultation: no crackles, no rhonchi and no wheezes Cardiovascular: Rate/Rhythm: regular rate and regular rhythm Heart Sounds: no click, no gallop, no murmur and no cardiac rub Extremities: no edema Gastrointestinal (Abdomen): Inspection/Auscultation: abdomen normal to inspection and normal bowel sounds; abdomen not distended Percussion/Palpation: abdomen soft; abdomen nontender and no guarding Neurologic: Motor/Sensory: + tremor (resting tremor of hands and arms); no pronator drift and no asterixis Psychiatric: A+Ox3, euthymic affect Results & Data Vital Signs (Past 12 Hours) Vital Signs Temp Pulse Pulse Resp BP BP Pulse Ox 01/22/19 07:44 72 01/22/19 07:30 37.0 C 72 21 116/72 97 01/22/19 07:11 81 20 98 09/12/19 05:17 18 96 01/22/19 04:00 37.0 C 83 21 109/63 100 01/22/19 01:56 97 01/22/19 01:49 97 01/22/19 00:15 99 H 01/21/19 23:40 37.1 C 96 H 22 132/77 92 01/21/19 22:30 94 H 12 106/57 L 96 01/21/19 22:00 90 16 120/73 100 01/21/19 21:30 92 H 37 H 135/62 99 01/21/19 21:00 91 H 18 126/63 100 01/21/19 20:59 96 H 18 100 01/21/19 20:56 98 H 16 121/79 100 Laboratory Results WBC 4.20 K/uL (4.8-10.8) L 01/22/19 06:57 RBC 3.49 M/uL (4.2-5.4) L 01/22/19 06:57 Hgb 10.0 g/dL (12.0-16.0) L 01/22/19 06:57 Hct 32.0 % (37-47) L 01/22/19 06:57 MCV 91.7 fL (80-100) 01/22/19 06:57 MCH 28.7 pg (25-34) 01/22/19 06:57 MCHC 31.3 g/dL (32-36) L 01/22/19 06:57 RDW Std Deviation 47.5 fL (36.4-46.3) H 01/22/19 06:57 RDW Coeff of Don 14.2 % (11.5-14.5) 01/22/19 06:57 Plt Count 151 K/uL (130-400) 01/22/19 06:57 MPV 9.2 fL (7.4-10.4) 01/22/19 06:57 Immature Gran % (Auto) 0.2 % 01/22/19 06:57 Neut % (Auto) 91.0 % 01/22/19 06:57 Lymph % (Auto) 7.1 % 01/22/19 06:57 [place] % (Auto) 1.7 % 01/22/19 06:57 Eos % (Auto) 0.0 % 01/22/19 06:57 Baso % (Auto) 0.0 % 01/22/19 06:57 Immature Gran # (Auto) 0.01 K/uL (0.00-0.02) 01/22/19 06:57 Neut # (Auto) 3.82 K/uL (1.4-6.5) 01/22/19 06:57 Lymph # (Auto) 0.30 K/uL (1.2-3.4) L 01/22/19 06:57 [place] # (Auto) 0.07 K/uL (0.11-0.59) L 01/22/19 06:57 Eos # (Auto) 0.00 K/uL (0-0.5) 01/22/19 06:57 Baso # (Auto) 0.00 K/uL (0-0.2) 01/22/19 06:57 Platelet Estimate Normal (Normal) 01/21/19 19:57 PT 10.0 Seconds (9.0-12.0) 01/22/19 06:57 INR 1.0 (0.9-1.1) 01/22/19 06:57 Sodium 141 mmol/L (136-145) 01/22/19 06:57 Potassium 4.1 mmol/L (3.5-5.1) 01/22/19 06:57 Chloride 103 mmol/L (98-107) 01/22/19 06:57 Carbon Dioxide 30 mmol/L (21-32) 01/22/19 06:57 Anion Gap 8.0 (3-11) 01/22/19 06:57 BUN 11 mg/dl (7-18) 01/22/19 06:57 Creatinine 0.63 mg/dl (0.6-1.2) 01/22/19 06:57 Est Cr Clr Drug Dosing 80.2 ml/min 01/22/19 06:57 Est GFR ( Amer) 113.8 01/22/19 06:57 Est GFR (Non-Af Amer) 98.2 01/22/19 06:57 BUN/Creatinine Ratio 17.6 (10-20) 01/22/19 06:57 Glucose 187 mg/dl (70-99) H 01/22/19 06:57 Calcium 8.6 mg/dl (8.5-10.1) 01/22/19 06:57 Total Bilirubin 0.4 mg/dl (0.2-1) 01/22/19 06:57 AST 30 U/L (15-37) 01/22/19 06:57 ALT 24 U/L (12-78) 01/22/19 06:57 Alkaline Phosphatase 132 U/L (45-117) H 01/22/19 06:57 Total Creatine Kinase 30 U/L (26-192) 01/21/19 19:57 CK-MB (CK-2) < 1.0 ng/ml (0.5-3.6) 01/21/19 19:57 CK/CKMB % Calc TNP 01/21/19 19:57 Troponin I < 0.015 ng/ml (0-0.045) 01/21/19 19:57 Total Protein 7.0 gm/dl (6.4-8.2) 01/22/19 06:57 Albumin 2.7 gm/dl (3.4-5.0) L 01/22/19 06:57 Globulin 4.3 gm/dl (2.5-4.0) H 01/22/19 06:57 Albumin/Globulin Ratio 0.6 (0.9-2) L 01/22/19 06:57 Lipase 243 U/L (73-393) 01/21/19 19:57 Vitamin B12 500 pg/ml (211-911) 01/22/19 00:08 Folate > 24.00 ng/ml (>5.38) 01/22/19 00:08 Ethyl Alcohol mg/dL 176.0 mg/dl (0-3) H 01/21/19 20:03 Hepatitis C Ab Screen Neg (Neg) 01/22/19 06:57 PG Care Time/CCT Total # of Minutes Spent Total Time Spent with Patient: Total time spent is greater than 50% in coordination of care (as documented) at patient's floor/unit and/or counseling patient: Resident Activity Tracking Resident Involvement: Resident Care Provided Care Provided: Adult Hospital Medicine (1) Pneumonia Laterality: left Lung location: lower lobe of lung Pneumonia type: due to unspecified organism Qualified Code(s): J18.1 - Lobar pneumonia, unspecified organism
[2019-01-22] MEDS ORDERED: AMPHETAMINE ASP/SULF/DEXTRAMPH 5 MG TAB PO SCH (09:00)
--- NOTE | 2019-01-22 09:20 | XRay Report ---
XR chest 2V routine CLINICAL HISTORY: Pneumonia. COMPARISON STUDY: Chest CT November 25, 2018. Chest radiograph January 21, 2019. FINDINGS: Lung volumes are normal. There is no pneumothorax or pleural effusion. There is no evidence for pulmonary edema. Calcified granulomas within the lungs are incidentally noted. Mild left basilar opacity is noted. This is similar to prior exam. Cardiomediastinal silhouette is stable. A hiatal he rnia is again noted. IMPRESSION: No change in left lower lung opacity which may reflect atelectasis or pneumonia. Electronically signed by: Jeffry Milian M.D. 01/22/2019 9:19 AM
[2019-01-22] MEDS: MULTI-VITAMIN INFUSION 10 ML, THIAMINE HCL 100 MG, FOLIC ACID 1 MG in SODIUM CHLORIDE 0... IV SCH (10:49)
[2019-01-22] MEDS: NICOTINE 21 MG/24 HR TDSY TD SCH (20:18)
[2019-01-22] MEDS: ESCITALOPRAM OXALATE 20 MG TAB PO SCH (20:43)
[2019-01-22] MEDS: TRAZODONE HCL 100 MG TAB PO PRN (20:43)
[2019-01-23] MEDS: methylPREDNISolone 80 MG in SYRINGE 0 ML IV SCH (04:13)
[2019-01-23] MEDS: AMPICILLIN/SULBACTAM SOD 1,500 MG in 0.9 % SODIUM CHLORIDE 100 ML IV SCH ×4 (04:14→21:46)
[2019-01-23] MEDS: ENOXAPARIN INJ 40 MG/0.4 ML SYR SQ SCH (05:57)
[2019-01-23 07:00] LABS: Hemoglobin 8.5 g/dL (12.0-16.0); Immature Granulocytes # (auto) 0.02 K/uL (0.00-0.02); Immature Granulocytes % (auto) 0.3 %; Lymphocytes # (auto) 0.31 K/uL (1.2-3.4); Lymphocytes % (auto) 4.5 %; Mean Corpuscular Hgb Conc 31.5 g/dL (32-36); Mean Corpuscular Volume 91.2 fL (80-100); Mean Platelet Volume 9.1 fL (7.4-10.4); Monocytes # (auto) 0.28 K/uL (0.11-0.59); Monocytes % (auto) 4.1 %; Neutrophils # (auto) 6.24 K/uL (1.4-6.5); Neutrophils % (auto) 91.1 %; Platelet Count 152 K/uL (130-400); RDW Coefficient of Variation 14.4 % (11.5-14.5); RDW Standard Deviation 47.9 fL (36.4-46.3); Red Blood Count 2.96 M/uL (4.2-5.4); White Blood Count 6.85 K/uL (4.8-10.8)
[2019-01-23] MEDS: ALBUT/IPRATROP 3MG/0.5MG NEB 3 ML VIAL NEB SCH ×2 (07:02→11:17)
[2019-01-23 07:35] LABS: Albumin Level 2.3 gm/dl (3.4-5.0); BUN Creatinine Ratio 26.6 (10-20); Creatinine Clr Calc Pharmacy 87.3 ml/min; Est GFR (African American) 116.3; Est GFR (Non-African American) 100.3
[2019-01-23 07:45] LABS: Albumin Globulin Ratio 0.7 (0.9-2); Bilirubin,Total 0.1 mg/dl (0.2-1); Globulin 3.5 gm/dl (2.5-4.0); Total Protein 5.8 gm/dl (6.4-8.2)
--- NOTE | 2019-01-23 07:59 | Family Medicine Progress Note ---
Date of Service January 23, 2019 Assessment & Plan (1) Acute respiratory failure with hypoxia: CAP vs. Aspiration Pneumonitis - covering G-/G+ with Unasyn 1.5g Q6 - s/p 1 dose of levaquin vanc, zosyn in ED - CBC shows normal white count - ED CXR showed L basilar/lingula PNA. Reordered 2 view CXR which wasn't impressive for lobar pneumonia. Some diffuse infiltrative changes more suggestive of COPD exacerbation or aspiration pneumonitis. - Blood Cx pending. - Speech therapy commented patient is low risk for aspiration while in hospital, is more likely to aspirate while intoxicated. (2) COPD exacerbation: Likely COPD exacerbation 2/2 pneumonitis. - Home symbicort, combivent continued - Reduced methylpred to 60 IV Q8H today. Patient is improving quickly with oxygenation and breathing status, will consider changing dosage to 40 IV tonight and conversion to PO tomorrow morning. - ipra/alb duonebs ordered; has been taking every 4 hours. - monitoring O2 sats and oxygen requirements; currently improving. On oxygen concentrator at home of 2L. (3) Alcohol withdrawal syndrome: - Last drink yesterday - TAVO of 6 this morning - received ativan twice yesterday (noon and 4 pm) - daily banana bags with Thiamine 100mg, Folate 1 g - B12 and Folate levels in ED were normal - blood alcohol in ED was 176 FEN/GI: regular diet DVT PPX: lovenox, SCDs Code status: full code Dispo: med/surg with tele. To go home. (4) Orthostatic hypotension: - describes being dizzy upon rising out of bed quickly (5) ADHD: Holding adderall while in hospital (6) Sleep disturbance: continue home dose of trazodone (7) Depression: Questionable Depression vs. Bipolar II considering patient is on depakote and lexapro continue home doses Supervising Physician Co-Signing Physician Notes Attending attestation I saw the patient with the resident physician and confirmed l[place]ardo portions of the history and physical exam. I agree with the impression and plan as noted above with the following additions. Overall, the patient reports feeling better. She denies any shortness of breath - she is maintaining oxygen saturations on room air. She denies abdominal pain. Denies any gastric reflux type symptoms. She denies a history of black or tarry stools. She does tell me that she has a remote history of anemia requiring iron transfusion, although this was in the setting of an obstetrical bleed secondary to a retained placenta nearly 30 years ago. On examination, she is alert and oriented. She does not appear anxious. She has a mild tremor. Heart is regular rate and rhythm. Lungs are fairly clear; good air exchange. Lab work shows hemoglobin of 8.5 PLAN 1) continue current care. Can likely transition to Augmentin. 2) convert to p.o. steroids tomorrow. This may help her tremors as well. 3) recheck hemoglobin in a.m. and heme check stools. Also check iron studies. Subjective 58 yo F feeling well this morning. Was able to sleep all night without nasal cannula. No complaints of shortness of breath, trouble breathing, chest pain, chest tightness at this time. Cough still present, no change in productivity. Feels like she is in control of withdrawal, but wants to go home sooner rather than later so she can start attending school again. Review of Systems Constitutional: + sweats; no fever and no chills Eyes: no diplopia and no worsening vision Respiratory: + cough; no change in sputum, no dyspnea, no hemoptysis and no pain on inspiration Cardiovascular: no chest pain, no dyspnea on exertion, no palpitations and no edema Gastrointestinal: no abdominal pain, no nausea, no vomiting, no constipation and no diarrhea/loose stools Neurologic: no gait abnormality, no localized weakness and no headache(s) Physical Exam Constitutional: + ill appearing, + disheveled, cooperative and + overweight comfortable sitting in bed but diaphoretic with a baseline tremor of the hands at rest. Respiratory: normal respiratory effort, + cough and able to speak in complete sentences; no respiratory distress Auscultation: no crackles, no rales and no wheezes Cardiovascular: Rate/Rhythm: regular rate and regular rhythm Heart Sounds: no click, no gallop, no murmur and no cardiac rub Extremities: normal capillary refill; no calf tenderness Gastrointestinal (Abdomen): normal bowel sounds, soft, nontender, no hepatosplenomegaly Results & Data Vital Signs (Past 12 Hours) Vital Signs Temp Pulse Pulse Resp BP BP Pulse Ox 01/23/19 07:49 83 01/23/19 07:27 37.2 C 76 18 122/76 90 01/23/19 07:03 82 16 97 01/23/19 03:49 36.8 C 89 23 131/69 93 01/23/19 00:00 101 H 01/22/19 23:13 36.5 C 94 H 18 132/70 95 Laboratory Results WBC 6.85 K/uL (4.8-10.8) 01/23/19 06:51 RBC 2.96 M/uL (4.2-5.4) L 01/23/19 06:51 Hgb 8.5 g/dL (12.0-16.0) L 01/23/19 06:51 Hct 27.0 % (37-47) L 01/23/19 06:51 MCV 91.2 fL (80-100) 01/23/19 06:51 MCH 28.7 pg (25-34) 01/23/19 06:51 MCHC 31.5 g/dL (32-36) L 01/23/19 06:51 RDW Std Deviation 47.9 fL (36.4-46.3) H 01/23/19 06:51 RDW Coeff of Don 14.4 % (11.5-14.5) 01/23/19 06:51 Plt Count 152 K/uL (130-400) 01/23/19 06:51 MPV 9.1 fL (7.4-10.4) 01/23/19 06:51 Immature Gran % (Auto) 0.3 % 01/23/19 06:51 Neut % (Auto) 91.1 % 01/23/19 06:51 Lymph % (Auto) 4.5 % 01/23/19 06:51 [place] % (Auto) 4.1 % 01/23/19 06:51 Eos % (Auto) 0.0 % 01/23/19 06:51 Baso % (Auto) 0.0 % 01/23/19 06:51 Immature Gran # (Auto) 0.02 K/uL (0.00-0.02) 01/23/19 06:51 Neut # (Auto) 6.24 K/uL (1.4-6.5) 01/23/19 06:51 Lymph # (Auto) 0.31 K/uL (1.2-3.4) L 01/23/19 06:51 [place] # (Auto) 0.28 K/uL (0.11-0.59) 01/23/19 06:51 Eos # (Auto) 0.00 K/uL (0-0.5) 01/23/19 06:51 Baso # (Auto) 0.00 K/uL (0-0.2) 01/23/19 06:51 Platelet Estimate Normal (Normal) 01/21/19 19:57 PT 10.0 Seconds (9.0-12.0) 01/22/19 06:57 INR 1.0 (0.9-1.1) 01/22/19 06:57 Sodium 145 mmol/L (136-145) 01/23/19 06:51 Potassium 4.0 mmol/L (3.5-5.1) 01/23/19 06:51 Chloride 110 mmol/L (98-107) H 01/23/19 06:51 Carbon Dioxide 31 mmol/L (21-32) 01/23/19 06:51 Anion Gap 4.0 (3-11) 01/23/19 06:51 BUN 16 mg/dl (7-18) 01/23/19 06:51 Creatinine 0.59 mg/dl (0.6-1.2) L 01/23/19 06:51 Est Cr Clr Drug Dosing 87.3 ml/min 01/23/19 06:51 Est GFR ( Amer) 116.3 01/23/19 06:51 Est GFR (Non-Af Amer) 100.3 01/23/19 06:51 BUN/Creatinine Ratio 26.6 (10-20) H 01/23/19 06:51 Glucose 188 mg/dl (70-99) H 01/23/19 06:51 Calcium 9.0 mg/dl (8.5-10.1) 01/23/19 06:51 Total Bilirubin 0.1 mg/dl (0.2-1) L 01/23/19 06:51 AST 35 U/L (15-37) 01/23/19 06:51 ALT 27 U/L (12-78) 01/23/19 06:51 Alkaline Phosphatase 120 U/L (45-117) H 01/23/19 06:51 Total Creatine Kinase 30 U/L (26-192) 09/11/19 19:57 CK-MB (CK-2) < 1.0 ng/ml (0.5-3.6) 01/21/19 19:57 CK/CKMB % Calc TNP 01/21/19 19:57 Troponin I < 0.015 ng/ml (0-0.045) 01/21/19 19:57 Total Protein 5.8 gm/dl (6.4-8.2) L 01/23/19 06:51 Albumin 2.3 gm/dl (3.4-5.0) L 01/23/19 06:51 Globulin 3.5 gm/dl (2.5-4.0) 01/23/19 06:51 Albumin/Globulin Ratio 0.7 (0.9-2) L 01/23/19 06:51 Lipase 243 U/L (73-393) 01/21/19 19:57 Vitamin B12 500 pg/ml (211-911) 01/22/19 00:08 Folate > 24.00 ng/ml (>5.38) 01/22/19 00:08 Ethyl Alcohol mg/dL 176.0 mg/dl (0-3) H 01/21/19 20:03 Hepatitis C Ab Screen Neg (Neg) 01/22/19 06:57 PG Care Time/CCT Total # of Minutes Spent Total Time Spent with Patient: Total time spent is greater than 50% in coordination of care (as documented) at patient's floor/unit and/or counseling patient: Resident Activity Tracking Resident Involvement: Resident Care Provided Care Provided: Adult Hospital Medicine
[2019-01-23] MEDS: IPRATROPIUM BROMIDE/ALBUTEROL respimat INH INH SCH ×4 (09:30→20:50)
[2019-01-23] MEDS: BUDESONIDE/FORMOTEROL FUMARATE 80/4.5 60 PUFFS/INHALER INH SCH ×2 (09:30→20:50)
[2019-01-23] MEDS: DIVALPROEX EXTENDED RELEASE 500 MG TAB PO SCH (09:31)
[2019-01-23] MEDS: NICOTINE 21 MG/24 HR TDSY TD SCH (09:31)
[2019-01-23 10:18] LABS: iSTAT Creatinine 0.8 mg/dl (0.6-1.3); iSTAT Potassium 3.9 mEq/L (3.3-5.0)
[2019-01-23 10:19] LABS: iSTAT Hemoglobin 11.9 g/dl (12.0-16.0); iSTAT Ionized Calcium 1.1 mmol/l (1.12-1.32)
[2019-01-23 10:20] LABS: iSTAT Arterial Blood Gas HCO3 31 meg/L (19-24); iSTAT Arterial Blood Gas pCO2 50 mmHg (35-46); iSTAT Carbon Dioxide 32 mEq/l (24-31)
[2019-01-23] MEDS: MULTI-VITAMIN INFUSION 10 ML, THIAMINE HCL 100 MG, FOLIC ACID 1 MG in SODIUM CHLORIDE 0... IV SCH (10:38)
[2019-01-23] MEDS ORDERED: ALBUT/IPRATROP 3MG/0.5MG NEB 3 ML VIAL NEB PRN (11:07)
[2019-01-23] MEDS ORDERED: methylPREDNISolone 60 MG in SYRINGE 0 ML IV SCH (12:00)
[2019-01-23] MEDS: LORazepam 1 MG/2 ML VIAL IV PRN (16:02)
[2019-01-23] MEDS: ESCITALOPRAM OXALATE 20 MG TAB PO SCH (20:50)
[2019-01-23] MEDS: TRAZODONE HCL 100 MG TAB PO PRN (21:16)
[2019-01-24] MEDS: AMPICILLIN/SULBACTAM SOD 1,500 MG in 0.9 % SODIUM CHLORIDE 100 ML IV SCH ×2 (03:26→10:34)
[2019-01-24] MEDS: ENOXAPARIN INJ 40 MG/0.4 ML SYR SQ SCH (05:48)
[2019-01-24] MEDS ORDERED: predniSONE 20 MG TAB PO SCH (06:00)
[2019-01-24 06:05] LABS: Basophils # (auto) 0.01 K/uL (0-0.2); Basophils % (auto) 0.1 %; Hematocrit (blood only) 30.3 % (37-47); Hemoglobin 9.3 g/dL (12.0-16.0); Immature Granulocytes # (auto) 0.06 K/uL (0.00-0.02); Immature Granulocytes % (auto) 0.9 %; Lymphocytes # (auto) 0.94 K/uL (1.2-3.4); Mean Corpuscular Hgb Conc 30.7 g/dL (32-36); Mean Corpuscular Volume 92.7 fL (80-100); Mean Platelet Volume 9.1 fL (7.4-10.4); Monocytes # (auto) 0.59 K/uL (0.11-0.59); Monocytes % (auto) 8.8 %; Neutrophils # (auto) 5.11 K/uL (1.4-6.5); Neutrophils % (auto) 76.2 %; Platelet Count 156 K/uL (130-400); RDW Coefficient of Variation 14.6 % (11.5-14.5); RDW Standard Deviation 49.3 fL (36.4-46.3); Red Blood Count 3.27 M/uL (4.2-5.4); White Blood Count 6.71 K/uL (4.8-10.8)
[2019-01-24 06:35] LABS: BUN Creatinine Ratio 24.7 (10-20); Calcium 8.5 mg/dl (8.5-10.1); Creatinine Clr Calc Pharmacy 85.8 ml/min; Est GFR (African American) 115.6; Est GFR (Non-African American) 99.8; Potassium 3.5 mmol/L (3.5-5.1)
[2019-01-24] MEDS: BUDESONIDE/FORMOTEROL FUMARATE 80/4.5 60 PUFFS/INHALER INH SCH (08:58)
[2019-01-24] MEDS: DIVALPROEX EXTENDED RELEASE 500 MG TAB PO SCH (08:58)
[2019-01-24] MEDS: NICOTINE 21 MG/24 HR TDSY TD SCH (08:58)
[2019-01-24] MEDS: IPRATROPIUM BROMIDE/ALBUTEROL respimat INH INH SCH ×2 (09:00→12:14)
--- NOTE | 2019-01-24 10:43 | Family Medicine Progress Note ---
Date of Service January 24, 2019 Assessment & Plan (1) Acute respiratory failure with hypoxia: Patient is a 58 year old female presenting initially with shortness of breath and increasing O2 requirements. Acute Respiratory Failure with Hypoxia - CAP vs. Aspiration Pneumonitis - covering G-/G+ with Unasyn 1.5g Q6h - s/p 1 dose of levaquin vanc, zosyn while in ED - ED CXR showed L basilar/lingula PNA. Reordered 2 view CXR was not impressive for lobar pneumonia. Some diffuse infiltrative changes more suggestive of COPD exacerbation or aspiration pneumonitis. - CBC continues to show normal white count - Blood cultures negative. - Speech therapy commented patient is low risk for aspiration while in hospital, is more likely to aspirate while intoxicated. COPD Exacerbation - Likely COPD exacerbation 2/2 pneumonitis. - Home symbicort, combivent continued - Steroid use at Prednisone 40mg PO Q8H, will continue to monitor patient as steroids reduced. - ipra/alb duonebs ordered; has been taking every 4 hours. - monitoring O2 sats and oxygen requirements -On oxygen concentrator at home of 2L. -On Room Air throughout the day and 2L at night currently. Alcohol Withdrawal Syndrome - TAVO of 3 this morning - No need for Ativan at this time. - daily banana bags with Thiamine 100mg, Folate 1 g - B12 and Folate levels in ED were normal - blood alcohol in ED was 176 ADHD -Has home Adderall, currently holding while inpatient Sleep Disturbance -Continue home dose Trazodone Depression - Questionable Depression vs. Bipolar II considering patient is on depakote and lexapro - continue home doses FEN/GI: regular diet DVT PPX: lovenox, SCDs Code status: full code Dispo: med/surg with tele. (2) COPD exacerbation: (3) Alcohol withdrawal syndrome: (4) ADHD: (5) Sleep disturbance: (6) Depression: Supervising Physician Co-Signing Physician Notes Please see my attestation in the discharge summary of the same date. Subjective Patient is a 58 year old female PMHx Alcohol abuse syndrome, COPD, ADHD who presented with SOB and increasing O2 needs. Patient states that she is feeling much better today and is requesting to go home. 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 She does state that if she is unable to go back to school due to missing too much time, that she would seek rehab on her own. She notes she has a counselor and psychiatrist that would both assist her. She has no other complaints at this time. Review of Systems Constitutional: no fever and no chills Eyes: no eye pain and no worsening vision Ear, Nose, Mouth, Throat: no ear pain, no tinnitus, no dizziness, no nasal congestion and no nasal discharge Respiratory: + cough and + dyspnea on exertion; no change in sputum, no dyspnea, no hemoptysis, no pain on inspiration and no wheezing Cardiovascular: + dyspnea on exertion; no chest pain, no chest pain at rest, no dyspnea and no palpitations Gastrointestinal: no abdominal pain, no nausea, no vomiting, no constipation and no diarrhea/loose stools Genitourinary: no dysuria and no hematuria Integumentary: no rash Physical Exam Constitutional: WD/WN, vitals as above Eyes: normal visual partida by confrontation, + anicteric sclerae, EOM intact bilaterally and reactive pupils; no photophobia ENMT: Ears: no hearing impairment Neck: normal visual inspection Respiratory: normal respiratory effort and + cough; not tachypneic and no audible wheezes Auscultation: lungs clear to auscultation bilaterally; no crackles, no rales, no rhonchi and no wheezes Cardiovascular: RRR, no murmur, no edema Heart Sounds: normal S1 and normal S2 Gastrointestinal (Abdomen): normal bowel sounds, soft, nontender, no hepatosplenomegaly Skin: no rashes, warm and dry no jaundice Results & Data Vital Signs (Past 12 Hours) Vital Signs Temp Pulse Pulse Resp BP BP Pulse Ox 01/24/19 08:48 76 01/24/19 07:40 37.1 C 84 20 154/91 H 98 01/24/19 05:46 36.7 C 79 16 167/95 H 96 01/24/19 04:00 36.7 C 73 18 131/74 98 01/24/19 02:00 36.9 C 82 18 137/72 92 01/23/19 23:33 36.8 C 82 20 129/74 96 01/23/19 23:25 91 H Laboratory Results Abnormal lab results 01/24/19 01/24/19 Range/Units 05:39 05:39 RBC 3.27 L (4.2-5.4) M/uL Hgb 9.3 L (12.0-16.0) g/dL Hct 30.3 L (37-47) % MCHC 30.7 L (32-36) g/dL RDW Std Deviation 49.3 H (36.4-46.3) fL RDW Coeff of Don 14.6 H (11.5-14.5) % Immature Gran # (Auto) 0.06 H (0.00-0.02) K/uL Lymph # (Auto) 0.94 L (1.2-3.4) K/uL Chloride 109 H (98-107) mmol/L Carbon Dioxide 33 H (21-32) mmol/L BUN/Creatinine Ratio 24.7 H (10-20) Glucose 102 H (70-99) mg/dl Medications Administered Current Inpatient Medications Albuterol (Combivent Respimat) 1 puffs INH QID YASMANI Stop: 02/21/19 08:59 Last Admin: 01/24/19 09:00 Dose: 1 puffs Documented by: Albuterol (Duoneb) 3 ml NEB QIDR PRN PRN Reason: Shortness Of Breath Stop: 02/21/19 06:59 Amphetamine/Dextroamphetamine (Adderall) 7.5 mg PO BID [facility] Stop: 02/21/19 08:59 Budesonide/Formoterol Fumarate (Symbicort 80mcg/4.5mcg) 2 puffs INH BID YASMANI Stop: 02/21/19 08:59 Last Admin: 01/24/19 08:58 Dose: 2 puffs Documented by: Divalproex Sodium (Depakote Extended Release) 500 mg PO DAILY YASMANI Stop: 02/21/19 08:59 Last Admin: 01/24/19 08:58 Dose: 500 mg Documented by: Enoxaparin Sodium (Lovenox) 40 mg SQ Q24H YASMANI Stop: 02/21/19 05:59 Last Admin: 01/24/19 05:48 Dose: 40 mg Documented by: Escitalopram Oxalate (Lexapro Tab) 20 mg PO HS YASMANI Stop: 02/21/19 20:59 Last Admin: 01/23/19 20:50 Dose: 20 mg Documented by: Ampicillin Sodium/Sulbactam Sodium 1,500 mg/ Sodium Chloride 104 mls @ 200 mls/hr IV Q6H [facility]; Protocol Stop: 01/29/19 03:59 Last Admin: 01/24/19 10:34 Dose: 200 mls/hr Documented by: Lorazepam (Ativan) 1 mg in 2 mls @ 2 mls/min IV ONE PRN; Protocol PRN Reason: EtoH Withdrawal AWSS 6-10 Stop: 02/20/19 23:57 Last Admin: 01/22/19 12:24 Dose: 2 mls/min Documented by: Lorazepam (Ativan) 1 mg in 2 mls @ 2 mls/min IV UD PRN; Protocol PRN Reason: EtOH Withdrawl AWSS Score 6,7 Stop: 02/20/19 23:57 Last Admin: 01/23/19 16:02 Dose: 2 mls/min Documented by: Lorazepam (Ativan) 2 mg in 4 mls @ 4 mls/min IV UD PRN; Protocol PRN Reason: EtOH Withdrawl AWSS Score 8,9 Stop: 02/20/19 23:57 Lorazepam (Ativan) 3 mg in 6 mls @ 4 mls/min IV ONCE PRN; Protocol PRN Reason: EtOH Withdrawl AWSS Score >=10 Stop: 02/20/19 23:57 Multivitamins 10 ml/ Thiamine HCl 100 mg/ Folic Acid 1 mg/Sodium Chloride 1,011.2 mls @ 1,011.2 mls/hr IV Q24H [facility] Stop: 01/26/19 11:59 Last Infusion: 01/23/19 12:07 Dose: Infused Documented by: Miscellaneous (Remove Nicoderm Patch) 1 ea N/A HS [facility] Stop: 02/22/19 20:59 Last Admin: 01/23/19 20:51 Dose: 1 ea Documented by: Nicotine (Nicoderm Cq) 21 mg TD QAM [facility] Stop: 02/21/19 19:59 Last Admin: 01/24/19 08:58 Dose: 21 mg Documented by: Prednisone (Prednisone) 40 mg PO Q8H [facility] Stop: 01/25/19 22:14 Last Admin: 01/24/19 05:48 Dose: 40 mg Documented by: Trazodone HCl (Desyrel) 100 mg PO DAILY PRN PRN Reason: Unknown Stop: 02/20/19 23:57 Last Admin: 01/23/19 21:16 Dose: 100 mg Documented by: PG Care Time/CCT Total # of Minutes Spent Total Time Spent with Patient: Total time spent is greater than 50% in coordination of care (as documented) at patient's floor/unit and/or counseling patient: Resident Activity Tracking Resident Involvement: Resident Care Provided Care Provided: Adult Hospital Medicine
[2019-01-24] MEDS: MULTI-VITAMIN INFUSION 10 ML, THIAMINE HCL 100 MG, FOLIC ACID 1 MG in SODIUM CHLORIDE 0... IV SCH (11:07)
--- NOTE | 2019-01-24 13:35 | Discharge Summary ---
Date of Service January 24, 2019 Admission HPI Per Admitting Provider Ms. Aguirre is a 58yo with a PMHx significant for alcohol abuse, COPD, ADHD, Anxiety/Depression and sleep disturbance who presents with SOB for the past few days and was found to have a pneumonia. Pt's also in the room and states she started having this SOB about 3-4 days ago where he noted the increased need for the oxygen concentrator during the day. States she usually uses it only at night. Her SOB has also been associated with an increase in cough and clear sputum production. Has also been having fevers, chills and night sweats at home. States that her breathing is better when she lays down and worse on exertion as noted by the home pulse ox which gave readings less than 90 with exertion. also noted that she was a bit confused at home as well. PMHx: COPD, depression, alcohol abuse, ADHD, sleep disturbance. Allergies: RACIEL inhibitors SH: lives at home with in 1 shadia home; smoked for 44years 1.5ppd at her heaviest. Drinks 0.5L of vodka a day. No recreational drug use. Not sure if she would like to go to rehab after this hospital stay. Admission Exam Per Admitting Provider Constitutional: cooperative and + in distress Eyes: PERRL, conjunctivae normal, anicteric sclerae ENMT: external ear and nose normal, oropharynx normal Neck: normal visual inspection Respiratory: + labored breathing (with oxygen mask on face) Auscultation: + diminished lung sounds (and coarse) Cardiovascular: Rate/Rhythm: regular rate and regular rhythm Heart Sounds: normal S1 and normal S2 Gastrointestinal (Abdomen): normal bowel sounds, soft, nontender, no hepatosplenomegaly Musculoskeletal: no cyanosis or clubbing, extremities motor strength 5/5 Skin: no rashes, warm and dry Neurologic: PERRL, EOMI, accommodation nl, no face palsy, no dysarthria (AAOx3) Principal Diagnosis Aspiration Pneumonia Discharge Exam Constitutional WD/WN, vitals as above Eyes normal visual partida by confrontation, + anicteric sclerae, EOM intact b ilaterally and reactive pupils; no photophobia ENMT Ears: no hearing impairment Neck normal visual inspection Respiratory normal respiratory effort and + cough; not tachypneic and no audible wheezes Auscultation: lungs clear to auscultation bilaterally; no crackles, no rales, no rhonchi and no wheezes Cardiovascular RRR, no murmur, no edema Heart Sounds: normal S1 and normal S2 Gastrointestinal (Abdomen) normal bowel sounds, soft, nontender, no hepatosplenomegaly Skin no rashes, warm and dry no jaundice Discharge Data Allergies Allergy/AdvReac Type Severity Reaction Status Date / Time RACIEL Inhibitors AdvReac Mild COUGH Verified 11/24/18 22:37 naltrexone [From Vivitrol] AdvReac Unknown Unverified 11/24/18 22:37 Consultations 01/21/19 21:40 ED Decision to Admit Stat 01/21/19 23:58 Consult Case Management - Discharge Planning Routine Hospital Course (1) Acute respiratory failure with hypoxia: Patient is a 58 year old female presenting initially with shortness of breath and increasing O2 requirements. Acute Respiratory Failure with Hypoxia - CAP vs. Aspiration Pneumonitis - Covered G-/G+ with Unasyn 1.5g Q6h - s/p 1 dose of levaquin vanc, zosyn while in ED - ED CXR showed L basilar/lingula PNA. Reordered 2 view CXR was not impressive for lobar pneumonia. Some diffuse infiltrative changes more suggestive of COPD exacerbation or aspiration pneumonitis. - CBC continued to show normal white count - Blood cultures were negative. - Speech therapy commented patient is low risk for aspiration while in hospital, is more likely to aspirate while intoxicated. COPD Exacerbation - Likely COPD exacerbation 2/2 pneumonitis. - Home symbicort, combivent continued - Initially IV steroids, patient was converted to oral Prednisone and will be discharged on a Prednisone taper. - ipra/alb duonebs q4h - monitored O2 sats and oxygen requirements -On oxygen concentrator at home of 2L. -On Room Air throughout the day and 2L at night. Alcohol Withdrawal Syndrome - TAVO of 3 this morning prior to discharge. - No need for Ativan at this time. - daily banana bags with Thiamine 100mg, Folate 1 g were given - B12 and Folate levels in ED were normal - blood alcohol in ED was 176 ADHD -Has home Adderall, was held while inpatient Sleep Disturbance -Continued home dose Trazodone Depression -Continued Home Lexapro and Depakote (2) COPD exacerbation: (3) Alcohol withdrawal syndrome: (4) ADHD: (5) Sleep disturbance: (6) Depression: Total Time Total Time Spent Total Time Spent (In Minutes): >30 Discharge Plan Discharge Items Patient Disposition: Home - Self-Care Reason For Visit: SOB Discharge Diagnosis: Respiratory failure secondary to Aspiration Pneumonitis COPD Exacerbation Condition on Discharge: Good Activity: Resume your previous activity Non-emergency contact: Primary Care Provider Call non-emergency contact if: you have any medication questions, your symptoms worsen and your rectal temperature is above 100.4 Follow-up/Referrals: Bentley Childs Jr, [Primary Care Provider] - Diet: Regular Addtl Attending Provider Instructions: Ms. Aguirre you were seen in the hospital when you started to notice increasing difficulty breathing and required more Oxygen than usual for yourself. While in the hospital you had imaging studies completed which indicated that you may have had a pneumonia caused by aspiration (swallowing food/fluids down the wrong tube) which also led to an exacerbation of your COPD. You were treated with IV antibiotics and IV steroids, including your home inhalers and you improved to require oxygen only while sleeping. You were also under an alcohol withdrawal protocol while in the hospital to prevent you from going into alcohol withdrawal and having symptoms that could complicate your situation. We had discussed the option of discharging you to a alcohol rehab facility, but you stated you would prefer to go home so that you could figure out your schooling situation and would seek rehab on your own in the near future. You are being discharged today due to your improved respiratory status and baseline oxygen use. Please do the following upon discharge today: -Follow up with your PCP within the next 1-3 days -Please take your antibiotic as prescribed: Augmentin 875mg 1 tablet by mouth two times a day for the next 6 days. -Please take your Prednisone (steroid) as prescribed: 40mg (2 tab) by mouth daily for 4 days followed by 20mg (1 tab) by mouth daily for 4 more days. -If you have any questions or concerns please notify your PCP or return to the ED. Pending Studies at Discharge: No Stand-Alone Forms: My [facility] Medications and DC Order Prescriptions: New amoxicillin-pot clavulanate 875-125 mg tablet 1 tab PO BID 6 Days Qty: 12 RF: 0 prednisone 20 mg tablet 20 mg PO DAILY 8 Days Qty: 12 RF: 0 Continued trazodone 100 mg tablet 100 mg PO DAILY PRN (Reason: Unknown) RF: 0 divalproex 500 mg tablet extended release 24 hr 500 mg PO DAILY RF: 0 dextroamphetamine-amphetamine [Adderall] 5 mg tablet 7.5 mg PO BID RF: 0 escitalopram oxalate [Lexapro] 20 mg tablet 20 mg PO HS RF: 0 Symbicort 80-4.5 mcg/actuation Hfa Aerosol Inhaler 2 puff INHALATION BID RF: 0 albuterol sulfate 90 mcg/actuation HFA aerosol inhaler 2 inha INH Q6H PRN (Reason: shortness of breath or wheezing) Qty: 8 RF: 0 Combivent Respimat 20-100 mcg/actuation mist 1 puffs INH QID Qty: 4 RF: 3 Discharge Orders: Discharge Order (Routine); Ordered 01/24/19 Ordered By: Daniel Calles Admission Data Admit Date/Time: 01/21/19 22:20 Attending Provider: Palomo Livingston Admit Provider: Melissa Meneses Primary Care Provider: Bentley Childs Jr Other Providers: Kevin Ochoa ; Janet Chao Other Interventions: Discharge Summary Assessment (RN) Last Done: 01/24/19 13:23 DC Date/Time DO NOT enter until pt leaves facility: 01/24/19 14:12 Supervising Physician Co-Signing Physician Notes I saw the patient with the resident physician and confirmed lombardo portions of the history and physical exam. I agree with the impression and plan as noted above with the following additions. Overall, the patient reports feeling well. She denies chest pain, shortness of breath, nausea vomiting, or abdominal pain. On examination, she is alert and oriented. She does not appear anxious. She again has a mild tremor. Heart is regular rate and rhythm. Lungs are clear; good air exchange. Lab work shows hemoglobin of 9.3. She is afebrile. PLAN 1) discharged on Augmentin and p.o. prednisone 2) follow-up with PCP for further evaluation of anemia. 3) discussed rehabilitation for her alcoholism; she declines; discussed cessation of alcohol will improve her health. Resident Activity Tracking Resident Involvement: Resident Care Provided Care Provided: Adult [facility] Medicine
== END 2019-01-24 14:12 | disposition home or self-care (01) | DRG 177 ==
LOC: ED 19:36 → SUATTDRO 22:20 → 2W 22:20

== ENCOUNTER 2019-03-31 10:17 | Inpatient (IN) ==
[2019-03-31] MEDS ORDERED: THIAMINE HCL 100 MG in SYRINGE 9 ML IV STA (10:43)
[2019-03-31] MEDS ORDERED: MULTI-VITAMIN INFUSION 10 ML, THIAMINE HCL 100 MG, FOLIC ACID 1 MG in SODIUM CHLORIDE 0... IV ONE ×2 (10:43→14:32)
[2019-03-31] MEDS ORDERED: ALBUT/IPRATROP 3MG/0.5MG NEB 3 ML VIAL NEB ONE (10:43)
[2019-03-31] MEDS ORDERED: PROCHLORPERAZINE 1 ML IV ONE (10:47)
[2019-03-31] MEDS ORDERED: FAMOTIDINE 20MG IV PUSH 20 MG/5 ML SYR IV STA (10:47)
[2019-03-31] MEDS ORDERED: methylPREDNISolone 125 MG/2 ML VIAL IV STA (10:48)
[2019-03-31] MEDS ORDERED: SODIUM CHLORIDE 0.9% 500 ML IV ONE (10:48)
--- NOTE | 2019-03-31 11:09 | XRay Report ---
XR chest 1V portable CLINICAL HISTORY: Sepsis dyspnea COMPARISON STUDY: 03/25/2019 FINDINGS: Emphysematous change considered unaltered. Slight accentuation of the basilar parenchymal m arkings considered improved from the prior exam. No current evidence for an acute infiltrate. Upper lungs are considered clear. No significant cardiac enlargement. Scattered small benign calcified granulomas bilaterally unchanged. IMPRESSION: Improved exam compared to the prior study. Emphysematous change. No acute process. The above report was generated using voice recognition software. It may contain grammatical, syntax or spelling errors. Electronically signed by: Danny Aguillon M.D. 03/31/2019 11:07 AM
[2019-03-31 11:13] LABS: iSTAT Creatinine 1.1 mg/dl (0.6-1.3); iSTAT Hemoglobin 12.2 g/dl (12.0-16.0); iSTAT Ionized Calcium 1.03 mmol/l (1.12-1.32); iSTAT Potassium 4.3 mEq/L (3.3-5.0)
[2019-03-31 11:21] LABS: Basophils # (auto) 0.04 K/uL (0-0.2); Basophils % (auto) 0.7 %; Eosinophils # (auto) 0.12 K/uL (0-0.5); Hemoglobin 10.5 g/dL (12.0-16.0); Immature Granulocytes # (auto) 0.01 K/uL (0.00-0.02); Immature Granulocytes % (auto) 0.2 %; Lymphocytes # (auto) 1.56 K/uL (1.2-3.4); Lymphocytes % (auto) 25.7 %; Mean Corpuscular Hemoglobin 26.3 pg (25-34); Mean Corpuscular Hgb Conc 29.2 g/dL (32-36); Mean Platelet Volume 9.6 fL (7.4-10.4); Monocytes # (auto) 0.76 K/uL (0.11-0.59); Monocytes % (auto) 12.5 %; Neutrophils # (auto) 3.59 K/uL (1.4-6.5); Neutrophils % (auto) 58.9 %; Platelet Count 193 K/uL (130-400); RDW Standard Deviation 51.2 fL (36.4-46.3); White Blood Count 6.08 K/uL (4.8-10.8)
[2019-03-31] MEDS ORDERED: DOXYCYCLINE HYCLATE 100 MG in DEXTROSE 5% 100 ML IV STA (11:28)
[2019-03-31 11:30] LABS: Base Excess VBG 3.2 mEq/L; pH VBG 7.44 (7.36-7.41)
[2019-03-31 11:35] LABS: Alanine Aminotransferase 35 U/L (12-78); Albumin Level 3.3 gm/dl (3.4-5.0); Aspartate Aminotransferase 68 U/L (15-37); Bilirubin Direct 0.1 mg/dl (0-0.2); Blood Urea Nitrogen 10 mg/dl (7-18); Calcium 8.9 mg/dl (8.5-10.1); Carbon Dioxide 36 mmol/L (21-32); Chloride 91 mmol/L (98-107); Est GFR (Non-African American) 102.7; Glucose 76 mg/dl (70-99); Magnesium 1.9 mg/dl (1.8-2.4); Potassium 4.2 mmol/L (3.5-5.1); Sodium 134 mmol/L (136-145)
[2019-03-31 11:36] LABS: INR 0.9 (0.9-1.1); Partial Thromboplastin Ratio 0.8; Partial Thromboplastin Time 22.7 Seconds (21.0-31.0); Prothrombin Time 9.4 Seconds (9.0-12.0)
[2019-03-31 11:46] LABS: Albumin Globulin Ratio 0.7 (0.9-2); Alkaline Phosphatase 153 U/L (45-117); Bilirubin,Total 0.2 mg/dl (0.2-1); Globulin 4.4 gm/dl (2.5-4.0); NT Pro B Type Natriuretic Pept 33 pg/ml (0-900); Phosphorus 3.4 mg/dl (2.5-4.9); Thyroid Stimulating Hormone 0.673 uIu/ml (0.300-4.500); Total Protein 7.7 gm/dl (6.4-8.2)
--- NOTE | 2019-03-31 13:33 | History & Physical Report ---
Date of Service March 31, 2019 Assessment & Plan (1) Acute respiratory failure with hypoxia: As noted below Has home O2 monitor Baseline home O2 use is 2L HS only via NC Noted on sleep study (2) Pneumonia: CXR noted for L sided PNA on 03/16, neg CXR on 03/25 and 03/31 Pt finished a course of omnicef and azithro several days prior to admission, however sx have been worse since that time Started on doxy in the ED, will continue for now given pt's risk and worsening sx s/p abx course WBC WNL, afebrile Desats requiring BIPAP Blood cx pending Lactic acid WNL (3) COPD exacerbation: Improved with nebs Will continue with mucomyst for upper airway congestion Prednisone, likely short course Does not have a home neb, CM to assist (4) Alcohol dependence: Last EtOH was prior to ED, around 9a Hx of tremors around 12 hours s/p last drink, no hx of seizures AWAS protocol with proph gabapentin Banana bag, thiamine, folate Pt is accepted to [facility] rehab, however cannot go if she needs continuous O2 (5) Alcohol use with intoxication: EtOH level + in ED (6) Hyponatremia: 134 on admission, has been WNL recently Monitor (7) Liver failure, acute: Hx of elevated LFTs WNL on admission Monitor (8) Anemia: Hb is not consistent Has been 8.5-11 over the last few months Monitor B12 pending, although likely to be elevated given banana bag in the ED (9) Depression: continue home meds (10) DVT prophylaxis: SCDs History of Present Illness Primary Care Provider: Bentley Childs Jr, DO 58 y/o F c/o worsening SOB and EtOH detox. Pt has been having issues with her breathing for the last few weeks. She was seen in the ED on 03/16 and dx with L PNA. She was started on omnicef and azithro at that time. She initially felt much better, but then states that she plateaued towards the end of the abx. She was seen in the ED again on 03/25 for similar sx. CXR neg at that time. No further abx prescribed. Since finishing abx about 3 days ago, pt has had worsening of her sx. She is SOB, both at rest and with activity. Her nausea w/o emesis has returned. She had been having diarrhea prior, however this stopped once she started taking Immodium. Pt uses HS only O2 2L via NC at baseline. She has been using it continuous at 4L for the last few weeks. Pt denies fever, chest pain, abd pain, v/c, LE pain or swelling. Pt does not have a home neb. She has not been eating much due to nausea and decreased appetite. She does feel like should would like to try PO now. Pt has been trying to d/c alcohol use for some time. She was accepted to [facility] recently, but they could not take her over the last few weeks due to the increased O2 requirement. She can go there with HS only use, but not if she needs the O2 to ambulate. Per , if she needs to have a higher O2 requirement, she could go to [place], however her preference is [place]. Pt's last alcohol was around 9a today, prior to coming to the ED. She has a hx of tremors as soon as the next day after alcohol use. She drinks a 500ml bottle of vodka daily generally. No certain hx of seizures related to withdrawal, however she states that she might have had "a small one" many years ago at work. Pt has been trying to quit smoking as well using nicotine patches. Allergies Allergy/AdvReac Type Severity Reaction Status Date / Time RACIEL Inhibitors AdvReac Mild COUGH Verified 03/31/19 12:00 naltrexone [From Vivitrol] AdvReac Unknown Unverified 03/31/19 12:00 Home Medications Home Medications Medication Instructions Recorded Confirmed Type Symbicort 2 puff INHALATION BID 08/13/18 03/31/19 History divalproex 500 mg PO DAILY 08/13/18 03/31/19 History escitalopram oxalate [Lexapro] 20 mg PO HS 08/13/18 03/31/19 History trazodone 100 mg PO DAILY PRN 08/13/18 03/31/19 History albuterol sulfate 2 inha INH Q6H PRN #8 gm 08/20/18 03/31/19 Rx Combivent Respimat 1 puffs INH QID #4 gm 11/28/18 03/31/19 Rx Past Med/Surg History Medical History Alcohol withdrawal syndrome (Acute) Alcoholic hepatitis (Chronic) Ascites (Acute) Asthma (Chronic) Constipation (Acute) COPD (chronic obstructive pulmonary disease) (Chronic) Depression Emphysema of lung ETOH abuse (Resolved 08/17/13) Jaundice (Acute) Left lower lobe pneumonia Leukocytosis (Acute 04/21/14) Liver failure, acute (Acute 04/21/14) Parapneumonic effusion Pneumonia (Acute) Sepsis due to Streptococcus pneumoniae Tachycardia (Acute 08/17/13) Surgical History S/P removal of ovarian cyst Family History (Updated 03/31/19 @ 13:30 by Herlinda Gruber DO) Father Hypertension Myocardial infarction Social History Preferred Language: Mongolian Communication Ability: Effective Gas Pipe Layer Required: No Beliefs That Will Affect Care: None marital status: Current Living Situation: Spouse Feels Safe at Home: Yes Smoking Status: Current every day smoker Tobacco Type: cigarettes ; Cigarettes Per Day: 20 ; Second Hand Exposure: Yes ; Hx Alcohol Use: Yes Alcohol type: hard liquor Alcohol Intake Frequency Comment: 500 ml a day Hx Substance Use: Yes substance use type: marijuana Last Used Substance: Days (ago) Review of Systems Review of Systems: Pertinent positives and negatives reviewed in HPI--all others negative Physical Exam Constitutional: WD/WN, vitals as above + ill appearing, + disheveled and cooperative Eyes: normal visual partida by confrontation and + anicteric sclerae Neck: normal visual inspection and trachea midline Respiratory: normal respiratory effort; no respiratory distress Auscultation: + diminished lung sounds; no crackles and no wheezes upper airway congestion noted Cardiovascular: Rate/Rhythm: regular rhythm and + tachycardic Gastrointestinal (Abdomen): Inspection/Auscultation: abdomen not distended Percussion/Palpation: abdomen soft; abdomen nontender Musculoskeletal: Head/Neck/Chest: normocephalic and head atraumatic negative for edema, peripheral pulses intact Skin: no rashes, warm and dry Neurologic: awake; not confused Speech / Cognition: normal speech Psychiatric: A+Ox3, euthymic affect Results & Data Vital Signs (Past 12 Hours) Vital Signs Temp Pulse Pulse Resp BP BP Pulse Ox 03/31/19 12:15 102 H 22 131/74 92 03/31/19 10:51 89 22 98 03/31/19 10:22 36.7 C 92 H 22 126/78 92 Diagnostic Findings CXR: neg for acute ECG Rhythm: normal sinus Code Status & VTE Plan Code Status Full code, although pt states no prolonged mechanical life support, feeding tu bes, etc VTE Prophylaxis Plan VTE Prophylaxis will be ordered: Yes PG Care Time/CCT Total # of Minutes Spent Total Time Spent with Patient: Total time spent is greater than 50% in coordination of care (as documented) at patient's floor/unit and/or counseling patient: (1) Pneumonia Laterality: unspecified laterality Lung location: unspecified part of lung Pneumonia type: due to unspecified organism Qualified Code(s): J18.9 - Pneumonia, unspecified organism (2) Alcohol dependence Substance use status: unspecified alcohol-induced disorder Qualified Code(s): F10.29 - Alcohol dependence with unspecified alcohol-induced disorder (3) Anemia Anemia type: unspecified type Qualified Code(s): D64.9 - Anemia, unspecified
[2019-03-31 13:43] LABS: Appearance Urine Clear (Clear); Bilirubin Urine Negative (Negative); Blood Urine Negative (Negative); Color Urine Yellow; Glucose Urine UA Negative (Negative); Ketones Urine 1+ (Negative); Leukocyte Esterase Urine Negative (Negative); Nitrite Urine Negative (Negative); Protein Urine Negative (Negative); Specific Gravity Urine 1.011 (1.000-1.030); Urobilinogen Urine Negative (Negative)
[2019-03-31] MEDS ORDERED: ONDANSETRON INJ 2 MG/ML 2 ML VIAL IV PRN (14:32)
[2019-03-31] MEDS ORDERED: GABAPENTIN 1200MG ALCOHOL WITHDRAWAL LOAD PO STA (14:32)
[2019-03-31] MEDS ORDERED: MAGNESIUM HYDROXIDE SUSP 30 ML UDC PO PRN (14:32)
[2019-03-31] MEDS ORDERED: ACETAMINOPHEN 325 MG TAB PO PRN (14:32)
[2019-03-31] MEDS ORDERED: LORazepam 1 MG TAB PO PRN (14:32)
[2019-03-31] MEDS ORDERED: ALBUTEROL HFA 8 GM INHALER INH PRN (14:45)
[2019-03-31] MEDS: ALBUT/IPRATROP 3MG/0.5MG NEB 3 ML VIAL NEB SCH ×3 (15:02→23:17)
[2019-03-31 15:25] LABS: Folate (Folic Acid) > 24.00 ng/ml (>5.38); Vitamin B12 883 pg/ml (211-911)
[2019-03-31] MEDS: THIAMINE HCL 100 MG TAB PO SCH (15:49)
[2019-03-31] MEDS ORDERED: GABAPENTIN 600 MG TAB PO SCH (16:00)
[2019-03-31] MEDS ORDERED: IPRATROPIUM BROMIDE/ALBUTEROL respimat INH INH SCH (17:00)
--- NOTE | 2019-03-31 18:54 | Emergency Department Note ---
Entered by Marlena Montes acting as a scribe for Toy Escobar MD History of Present Illness General Chief complaint: Detox Request Stated complaint: ALCOHOL DETOX, BREATHING ISSUE, DOUBLE VISION Time Seen by Provider: 03/31/19 10:42 Source: patient History of Present Illness Onset (ago): day(s) (today) Location: chest Pain Consistency: + other (episode) Maximum Pain Intensity: 4 Quality: + other (request for detox) Associated symptoms: + cough, + loss of appetite, + nausea/vomiting (nausea), + shortness of breath, + weakness and + other (random bleeding sores on her skin, dark brown stool) The patient is a 58 year old female who presents to the Emergency Room with complaints of an episode of a request for detox occurring today. The patient states 2 weeks ago she came to the ED for an increased cough. She states that it was making her short of breath, but they sent her home as her pneumonia had cleared from her previous stay of 8 days. She notes that they diagnosed her with emphysema at that time. She states that since then she has continued to be short of breath and had to bump her oxygen from what she is typically on at 2L up to 5L. She notes that she has also been using her inhalers with no relief. The pa rizwan states that she wanted to come to the ED though for a detox as she drinks about 500 ml of vodka a day. She notes that she last drank right before coming. She reports that she starts to withdraw after 8 hours and gets the shakes. She notes that she has been to rehab for her alcoholism 4 times in the past. The patient complains of nausea, loss of appetite, weakness, random bleeding sores on her skin, and dark, dark brown stool. Home Medications Home Medications Medication Instructions Recorded Confirmed Type Symbicort 2 puff INHALATION BID 08/13/18 03/31/19 History divalproex 500 mg PO DAILY 08/13/18 03/31/19 History escitalopram oxalate [Lexapro] 20 mg PO HS 08/13/18 03/31/19 History trazodone 100 mg PO DAILY PRN 08/13/18 03/31/19 History albuterol sulfate 2 inha INH Q6H PRN #8 gm 08/20/18 03/31/19 Rx Combivent Respimat 1 puffs INH QID #4 gm 11/28/18 03/31/19 Rx Allergies Allergy/AdvReac Type Severity Reaction Status Date / Time RACIEL Inhibitors AdvReac Mild COUGH Verified 03/31/19 12:00 naltrexone [From Vivitrol] AdvReac Unknown Unverified 03/31/19 12:00 Past Med/Surg History Medical History Alcohol withdrawal syndrome (Acute) Alcoholic hepatitis (Chronic) Ascites (Acute) Asthma (Chronic) Constipation (Acute) COPD (chronic obstructive pulmonary disease) (Chronic) Depression Emphysema of lung ETOH abuse (Resolved 08/17/13) Jaundice (Acute) Left lower lobe pneumonia Leukocytosis (Acute 04/21/14) Liver failure, acute (Acute 04/21/14) Parapneumonic effusion Pneumonia (Acute) Sepsis due to Streptococcus pneumoniae Tachycardia (Acute 08/17/13) Surgical History S/P removal of ovarian cyst Family History Father Hypertension Myocardial infarction Social History Preferred Language: Italian Communication Ability: Effective Theater Manager Required: No Beliefs That Will Affect Care: None marital status: Current Living Situation: Spouse Feels Safe at Home: Yes Smoking Status: Current every day smoker Tobacco Type: cigarettes ; Cigarettes Per Day: 20 ; Second Hand Exposure: Yes ; Hx Alcohol Use: Yes Alcohol type: hard liquor Alcohol Intake Frequency Comment: 500 ml a day Hx Substance Use: Yes substance use type: marijuana Last Used Substance: Days (ago) Review of Systems See HPI for pertinent positives & negatives. and A total of 10 systems reviewed and were otherwise negative Physical Exam Vital Signs Vital Signs - 24 hr 03/31/19 10:22 03/31/19 10:51 03/31/19 12:15 Temperature 36.7 C Temperature Source Oral Pulse Rate 92 H 89 Pulse Rate [Right Finger] 102 H Respiratory Rate 22 22 22 Respiratory Effort / Characteristics Spontaneous Short of Breath Respiratory Depth Normal Respiratory Pattern Regular Blood Pressure 126/78 Blood Pressure [Right Arm] 131/74 Blood Pressure Mean 94 Blood Pressure Mean [Right Arm] 93 Blood Pressure Position Sitting Blood Pressure Position [Right Arm] Lying Pulse Oximetry 92 98 92 Oxygen Delivery Method Room Air BiPAP Nasal Cannula Oxygen Flow Rate 3 Fraction of Inspired Oxygen 40 Sepsis Recent Fever Within 48 Hours No Sepsis New/Unexplained Change in Mental Status No Sepsis Action Taken by Nursing No Action Required GENERAL: Awake, alert, ill-appearing, in moderate respiratory distress HENT: Normocephalic, atraumatic. Oropharynx with dry mucous membranes and otherwise unremarkable. EYES: Normal conjunctiva. Sclera non-icteric. NECK: Supple. No nuchal rigidity. FROM. No JVD. RESPIRATORY: Moderate respiratory distress. Scattered wheezes. CARDIAC: Regular rate, normal rhythm. Extremities warm and well perfused. Pulses equal. ABDOMEN: Soft, non-distended. No tenderness to palpation. No rebound or guardi ng. No masses. RECTAL: Deferred. MUSCULOSKELETAL: Chest examination reveals no tenderness. The back is symmetrical on inspection without obvious abnormality. There is no CVA tenderness to palpation. No joint edema. LOWER EXTREMITIES: Calves are equal size bilaterally and non-tender. No edema. No discoloration. NEURO: Normal sensorium. No sensory or motor deficits noted. SKIN: No rash or jaundice noted. Course Course 1040: The patient was evaluated in room C7. A complete history and physical exam was performed. 1043: I paged respiratory at this time. 1049: The patient was started on Bi-PAP at this time. 1143: I discussed the patient's case with Dr. Gruber- [facility]. She will evaluate the patient for further management. 1236: I reevaluated the patient and updated her and her on her test results. I discussed the treatment plan with her. She verbally agrees and understands. Administered Medications Acetylcysteine (Mucomyst 20%) 5 ml INH BIDR [facility] Stop: 04/30/19 18:59 Last Admin: 03/31/19 20:03 Dose: 5 ml Documented by: [id number] Albuterol (Duoneb) 3 ml NEB Q4R [facility] Stop: 04/30/19 14:59 Last Admin: 03/31/19 20:03 Dose: 3 ml Documented by: [id number] Admin: 03/31/19 15:02 Dose: 3 ml Documented by: [id number] Budesonide/Formoterol Fumarate (Symbicort 80mcg/4.5mcg) 2 puffs INH BID [facility] Stop: 04/30/19 20:59 Last Admin: 03/31/19 21:11 Dose: 2 puffs Documented by: [id number] Escitalopram Oxalate (Lexapro Tab) 20 mg PO HS [facility] Stop: 04/30/19 20:59 Last Admin: 03/31/19 21:11 Dose: 20 mg Documented by: [id number] Gabapentin (Neurontin) 600 mg PO Q6H [facility]MAN[facility] Stop: 04/01/19 06:01 Last Admin: 03/31/19 21:11 Dose: 600 mg Documented by: [id number] Doxycycline Hyclate 100 mg/ (Dextrose) 110 mls @ 50 mls/hr IV BID [facility] Stop: 04/07/19 20:59 Last Admin: 03/31/19 21:13 Dose: 50 mls/hr Documented by: [id number] Prednisone (Prednisone) 40 mg PO BID [facility] Stop: 04/30/19 20:59 Last Admin: 03/31/19 21:11 Dose: 40 mg Documented by: [id number] Thiamine HCl (Vitamin B-1) 100 mg PO QAM [facility]MAN[facility] Stop: 04/30/19 14:59 Last Admin: 03/31/19 15:49 Dose: 100 mg Documented by: [id number] Discontinued Medications Albuterol (Duoneb) 12 ml NEB ONE ONE Stop: 03/31/19 10:44 Last Admin: 03/31/19 10:50 Dose: 12 ml Documented by: [id number] Gabapentin (Neurontin) 1,200 mg PO TODAY@1600 [facility]MANI Stop: 03/31/19 16:01 Last Admin: 03/31/19 15:48 Dose: 1,200 mg Documented by: [id number] Multivitamins 10 ml/ Thiamine HCl 100 mg/ Folic Acid 1 mg/Sodium Chloride 1,011.2 mls @ 1,011.2 mls/hr IV .Q1H ONE Stop: 03/31/19 11:42 Last Infusion: 03/31/19 13:00 Dose: 0 mls/hr Documented by: [id number] Admin: 03/31/19 11:38 Dose: 1,011.2 mls/hr Documented by: [id number] Thiamine HCl 100 mg/ Syringe 10 mls @ 2 mls/min IV NOW STA Stop: 03/31/19 10:47 Last Admin: 03/31/19 11:38 Dose: 2 mls/min Documented by: [id number] Prochlorperazine (Compazine) 1 mls @ 1 mls/min IV ONE ONE Stop: 03/31/19 10:48 Last Admin: 03/31/19 11:05 Dose: 1 mls/min Documented by: [id number] Famotidine (Pepcid 20mg Iv Push) 20 mg in 5 mls @ 2.5 mls/min IV NOW STA Stop: 03/31/19 10:48 Last Admin: 03/31/19 11:05 Dose: 2.5 mls/min Documented by: [id number] Sodium Chloride (Nss) 500 mls @ 999 mls/hr IV .Q31M ONE Stop: 03/31/19 11:18 Last Infusion: 03/31/19 11:39 Dose: 0 mls/hr Documented by: [id number] Admin: 03/31/19 11:05 Dose: 999 mls/hr Documented by: [id number] Doxycycline Hyclate 100 mg/ (Dextrose) 110 mls @ 50 mls/hr IV NOW STA Stop: 03/31/19 13:39 Last Infusion: 03/31/19 14:43 Dose: 0 mls/hr Documented by: [id number] Admin: 03/31/19 12:27 Dose: 50 mls/hr Documented by: [id number] Methylprednisolone (Solumedrol) 125 mg IV NOW STA Stop: 03/31/19 10:49 Last Admin: 03/31/19 11:05 Dose: 125 mg Documented by: [id number] Critical Care Time Critical Care Time: Yes Total Critical Care Time: 45 I have personally spent greater than 45 minutes of critical care time in the direct management of this patient. This includes bedside care, interpretation of diagnostic studies, and testing, discussion with consultants, patient, and family members, and other required patient management activities. This 45 minutes is in excess of all separately billable procedures. Medical Decision Making Differential Diagnosis Differential diagnoses includes but is not limited to pneumonia, bronchitis, COPD/Asthma exacerbation, pneumothorax, pulmonary embolism, congestive heart failure, acute coronary syndrome Medical Records Attestation: I reviewed the patient's medical records. Home Medications Current Medication List: was personally reviewed by me Laboratory Data Attestation: I reviewed the patient's lab results. Result diagrams: 03/31/19 10:48 03/31/19 10:48 Lab Results 03/31/19 03/31/19 03/31/19 Range/Units 10:48 10:48 10:48 WBC 6.08 (4.8-10.8) K/uL RBC 4.00 L (4.2-5.4) M/uL Hgb 10.5 L (12.0-16.0) g/dL POC Hgb (12.0-16.0) g/dl Hct 36.0 L (37-47) % POC Hct (37-47) % MCV 90.0 (80-100) fL MCH 26.3 (25-34) pg MCHC 29.2 L (32-36) g/dL RDW Std Deviation 51.2 H (36.4-46.3) fL RDW Coeff of Don 16.0 H (11.5-14.5) % Plt Count 193 (130-400) K/uL MPV 9.6 (7.4-10.4) fL Immature Gran % (Auto) 0.2 % Neut % (Auto) 58.9 % Lymph % (Auto) 25.7 % [place] % (Auto) 12.5 % Eos % (Auto) 2.0 % Baso % (Auto) 0.7 % Immature Gran # (Auto) 0.01 (0.00-0.02) K/uL Neut # (Auto) 3.59 (1.4-6.5) K/uL Lymph # (Auto) 1.56 (1.2-3.4) K/uL [place] # (Auto) 0.76 H (0.11-0.59) K/uL Eos # (Auto) 0.12 (0-0.5) K/uL Baso # (Auto) 0.04 (0-0.2) K/uL PT 9.4 (9.0-12.0) Seconds INR 0.9 (0.9-1.1) APTT 22.7 (21.0-31.0) Seconds PTT Ratio 0.8 VBG pH (7.36-7.41) VBG pCO2 (38-50) mmHg VBG pO2 mmHg VBG HCO3 mmol/L VBG O2 Saturation % VBG Base Excess mEq/L Barometric Pressure mm/Hg POC Sodium (135-144) mEq/L Sodium 134 L (136-145) mmol/L POC Potassium (3.3-5.0) mEq/L Potassium 4.2 (3.5-5.1) mmol/L POC Chloride (101-112) mEq/L Chloride 91 L (98-107) mmol/L Carbon Dioxide 36 H (21-32) mmol/L POC Total CO2 (24-31) mEq/l Anion Gap 7.0 (3-11) POC Anion Gap (16-25) mmol/L POC BUN (7-18) mg/dl BUN 10 (7-18) mg/dl Creatinine 0.55 L (0.6-1.2) mg/dl POC Creatinine (0.6-1.3) mg/dl Est Cr Clr Drug Dosing Not Reportable Est GFR ( Amer) 119.0 Est GFR (Non-Af Amer) 102.7 BUN/Creatinine Ratio 18.0 (10-20) Glucose 76 (70-99) mg/dl POC Glucose (other) (70-99) mg/dl Lactate (0.4-2.0) mmol/L Calcium 8.9 (8.5-10.1) mg/dl POC Ioniz Calcium Yann (1.12-1.32) mmol/l Phosphorus 3.4 (2.5-4.9) mg/dl Magnesium 1.9 (1.8-2.4) mg/dl Total Bilirubin 0.2 (0.2-1) mg/dl Direct Bilirubin 0.1 (0-0.2) mg/dl AST 68 H (15-37) U/L ALT 35 (12-78) U/L Alkaline Phosphatase 153 H (45-117) U/L NT-Pro-B Natriuret Pep 33 (0-900) pg/ml Total Protein 7.7 (6.4-8.2) gm/dl Albumin 3.3 L (3.4-5.0) gm/dl Globulin 4.4 H (2.5-4.0) gm/dl Albumin/Globulin Ratio 0.7 L (0.9-2) TSH 0.673 (0.300-4.500) uIu/ml Urine Color Urine Appearance (Clear) Urine pH (4.5-7.5) Ur Specific [place] (1.000-1.030) Urine Protein (Negative) Urine Glucose (UA) (Negative) Urine Ketones (Negative) Urine Blood (Negative) Urine Nitrite (Negative) Urine Bilirubin (Negative) Urine Urobilinogen (Negative) Ur Leukocyte Esterase (Negative) Ethyl Alcohol mg/dL (0-3) mg/dl Blood Type Antibody Screen 03/31/19 03/31/19 03/31/19 Range/Units 11:00 11:16 11:16 WBC (4.8-10.8) K/uL RBC (4.2-5.4) M/uL Hgb (12.0-16.0) g/dL POC Hgb 12.2 (12.0-16.0) g/dl Hct (37-47) % POC Hct 36 L (37-47) % MCV (80-100) fL MCH (25-34) pg MCHC (32-36) g/dL RDW Std Deviation (36.4-46.3) fL RDW Coeff of Don (11.5-14.5) % Plt Count (130-400) K/uL MPV (7.4-10.4) fL Immature Gran % (Auto) % Neut % (Auto) % Lymph % (Auto) % [place] % (Auto) % Eos % (Auto) % Baso % (Auto) % Immature Gran # (Auto) (0.00-0.02) K/uL Neut # (Auto) (1.4-6.5) K/uL Lymph # (Auto) (1.2-3.4) K/uL [place] # (Auto) (0.11-0.59) K/uL Eos # (Auto) (0-0.5) K/uL Baso # (Auto) (0-0.2) K/uL PT (9.0-12.0) Seconds INR (0.9-1.1) APTT (21.0-31.0) Seconds PTT Ratio VBG pH (7.36-7.41) VBG pCO2 (38-50) mmHg VBG pO2 mmHg VBG HCO3 mmol/L VBG O2 Saturation % VBG Base Excess mEq/L Barometric Pressure mm/Hg POC Sodium 134 L (135-144) mEq/L Sodium (136-145) mmol/L POC Potassium 4.3 (3.3-5.0) mEq/L Potassium (3.5-5.1) mmol/L POC Chloride 88 L (101-112) mEq/L Chloride (98-107) mmol/L Carbon Dioxide (21-32) mmol/L POC Total CO2 37 H (24-31) mEq/l Anion Gap (3-11) POC Anion Gap 15.0 L (16-25) mmol/L POC BUN 9 (7-18) mg/dl BUN (7-18) mg/dl Creatinine (0.6-1.2) mg/dl POC Creatinine 1.1 (0.6-1.3) mg/dl Est Cr Clr Drug Dosing Est GFR ( Amer) Est GFR (Non-Af Amer) BUN/Creatinine Ratio (10-20) Glucose (70-99) mg/dl POC Glucose (other) 79 (70-99) mg/dl Lactate 2.0 (0.4-2.0) mmol/L Calcium (8.5-10.1) mg/dl POC Ioniz Calcium Yann 1.03 L (1.12-1.32) mmol/l Phosphorus (2.5-4.9) mg/dl Magnesium (1.8-2.4) mg/dl Total Bilirubin (0.2-1) mg/dl Direct Bilirubin (0-0.2) mg/dl AST (15-37) U/L ALT (12-78) U/L Alkaline Phosphatase (45-117) U/L NT-Pro-B Natriuret Pep (0-900) pg/ml Total Protein (6.4-8.2) gm/dl Albumin (3.4-5.0) gm/dl Globulin (2.5-4.0) gm/dl Albumin/Globulin Ratio (0.9-2) TSH (0.300-4.500) uIu/ml Urine Color Urine Appearance (Clear) Urine pH (4.5-7.5) Ur Specific [place] (1.000-1.030) Urine Protein (Negative) Urine Glucose (UA) (Negative) Urine Ketones (Negative) Urine Blood (Negative) Urine Nitrite (Negative) Urine Bilirubin (Negative) Urine Urobilinogen (Negative) Ur Leukocyte Esterase (Negative) Ethyl Alcohol mg/dL (0-3) mg/dl Blood Type B Positive Antibody Screen NEGATIVE 03/31/19 03/31/19 03/31/19 Range/Units 11:16 11:16 13:15 WBC (4.8-10.8) K/uL RBC (4.2-5.4) M/uL Hgb (12.0-16.0) g/dL POC Hgb (12.0-16.0) g/dl Hct (37-47) % POC Hct (37-47) % MCV (80-100) fL MCH (25-34) pg MCHC (32-36) g/dL RDW Std Deviation (36.4-46.3) fL RDW Coeff of Don (11.5-14.5) % Plt Count (130-400) K/uL MPV (7.4-10.4) fL Immature Gran % (Auto) % Neut % (Auto) % Lymph % (Auto) % [place] % (Auto) % Eos % (Auto) % Baso % (Auto) % Immature Gran # (Auto) (0.00-0.02) K/uL Neut # (Auto) (1.4-6.5) K/uL Lymph # (Auto) (1.2-3.4) K/uL [place] # (Auto) (0.11-0.59) K/uL Eos # (Auto) (0-0.5) K/uL Baso # (Auto) (0-0.2) K/uL PT (9.0-12.0) Seconds INR (0.9-1.1) APTT (21.0-31.0) Seconds PTT Ratio VBG pH 7.44 H (7.36-7.41) VBG pCO2 42 (38-50) mmHg VBG pO2 64 mmHg VBG HCO3 28 mmol/L VBG O2 Saturation 91.0 % VBG Base Excess 3.2 mEq/L Barometric Pressure 726.3 mm/Hg POC Sodium (135-144) mEq/L Sodium (136-145) mmol/L POC Potassium (3.3-5.0) mEq/L Potassium (3.5-5.1) mmol/L POC Chloride (101-112) mEq/L Chloride (98-107) mmol/L Carbon Dioxide (21-32) mmol/L POC Total CO2 (24-31) mEq/l Anion Gap (3-11) POC Anion Gap (16-25) mmol/L POC BUN (7-18) mg/dl BUN (7-18) mg/dl Creatinine (0.6-1.2) mg/dl POC Creatinine (0.6-1.3) mg/dl Est Cr Clr Drug Dosing Est GFR ( Amer) Est GFR (Non-Af Amer) BUN/Creatinine Ratio (10-20) Glucose (70-99) mg/dl POC Glucose (other) (70-99) mg/dl Lactate (0.4-2.0) mmol/L Calcium (8.5-10.1) mg/dl POC Ioniz Calcium Yann (1.12-1.32) mmol/l Phosphorus (2.5-4.9) mg/dl Magnesium (1.8-2.4) mg/dl Total Bilirubin (0.2-1) mg/dl Direct Bilirubin (0-0.2) mg/dl AST (15-37) U/L ALT (12-78) U/L Alkaline Phosphatase (45-117) U/L NT-Pro-B Natriuret Pep (0-900) pg/ml Total Protein (6.4-8.2) gm/dl Albumin (3.4-5.0) gm/dl Globulin (2.5-4.0) gm/dl Albumin/Globulin Ratio (0.9-2) TSH (0.300-4.500) uIu/ml Urine Color Yellow Urine Appearance Clear (Clear) Urine pH 6.0 (4.5-7.5) Ur Specific [place] 1.011 (1.000-1.030) Urine Protein Negative (Negative) Urine Glucose (UA) Negative (Negative) Urine Ketones 1+ H (Negative) Urine Blood Negative (Negative) Urine Nitrite Negative (Negative) Urine Bilirubin Negative (Negative) Urine Urobilinogen Negative (Negative) Ur Leukocyte Esterase Negative (Negative) Ethyl Alcohol mg/dL 243.7 H (0-3) mg/dl Blood Type Antibody Screen Imaging Data Radiologist's Impression: Radiology results as stated below per my review and the radiologist's interpretation: XR chest 1V portable CLINICAL HISTORY: Sepsis dyspnea COMPARISON STUDY: 03/25/2019 FINDINGS: Emphysematous change considered unaltered. Slight accentuation of the basilar parenchymal markings considered improved from the prior exam. No current evidence for an acute infiltrate. Upper lungs are considered clear. N o significant cardiac enlargement. Scattered small benign calcified granulomas bilaterally unchanged. IMPRESSION: Improved exam compared to the prior study. Emphysematous change. No acute process. The above report was generated using voice recognition software. It may contain grammatical, syntax or spelling errors. Electronically signed by: Danny Aguillon M.D. 03/31/2019 11:07 AM ECG Data Attestation: I personally reviewed and interpreted this ECG as follows: Indication: + SOB/dyspnea Rate (beats per minute): 88 Rhythm: + normal sinus ECG [place]: + Normal ECG ST segments: no ST depression and no ST elevation ECG Findings: + Other (QT-c 459, QRS 72); no PACs and no PVCs Blood Pressure Blood Pressure Findings: Elevated blood pressure Blood Pressure Disposition: further management by hospitalist [facility] Narrative The patient is a pleasant 58-year-old woman with a past medical history of alcohol abuse, COPD on home O2 who presents emergency department with respiratory failure in the setting of having progressive worsening respiratory symptoms over the past 2 weeks per hpi. On arrival the patient is in moderate to severe respiratory distress with tachypnea and pursed lip/increased work of breathing with scattered wheezes and diminished breath sounds throughout. Patient was placed on BiPAP and provided continuous nebulizer with improvement/stabilization and respiratory status. Patient given steroids and treated with doxycycline for likely component of his COPD flare. The patient reports history of alcohol dependence and starts to withdrawal after 8 hours. Her alcohol today was 248 with her last drink this morning. Patient was given IV thiamine and banana bag. WBC and platelets wnl. H/H 10.5/36 similar to prior. Lactate 2.0. Chemistry without acidosis. VBG with pH 7.44. LFTs and electrolytes unremarkable. BNP wnl. UA negative for infection. Case was discussed with Dr. Herlinda Gruber, [facility] hospitalist, who evaluate the patient for admission. Impression & Plan Acute and chronic respiratory failure with hypoxia, Alcohol dependence, COPD exacerbation, Nausea Discharge Plan Visit Data *Final* Discharge Date/Time: 03/31/19 14:03 Chief Complaint: Detox Request Stated Complaint: ALCOHOL DETOX, BREATHING ISSUE, DOUBLE VISION ED Provider: Toy Escobar Discharge Problem: Acute and chronic respiratory failure with hypoxia, Alcohol dependence, COPD exacerbation, Nausea Patient Disposition: Admitted As Inpatient Discharge Instructions Interventions: ED Discharge Assessment Last Done: 03/31/19 14:03 The scribe's documentation has been prepared under my direction and personally reviewed by me in its entirety. I confirm that the note above accurately re flects all work, treatment, procedures, and medical decision making performed by me.
[2019-03-31] MEDS: ACETYLCYSTEINE 20% INHAL SOLN ***DISPENSED BY RESP. INH SCH (20:03)
[2019-03-31] MEDS: ESCITALOPRAM OXALATE 20 MG TAB PO SCH (21:11)
[2019-03-31] MEDS: BUDESONIDE/FORMOTEROL FUMARATE 80/4.5 60 PUFFS/INHALER INH SCH (21:11)
[2019-03-31] MEDS: GABAPENTIN 600 MG TAB PO SCH (21:11)
[2019-03-31] MEDS: predniSONE 20 MG TAB PO SCH (21:11)
[2019-03-31] MEDS: DOXYCYCLINE HYCLATE 100 MG in DEXTROSE 5% 100 ML IV SCH (21:13)
[2019-04-01] MEDS: ALBUT/IPRATROP 3MG/0.5MG NEB 3 ML VIAL NEB SCH ×6 (02:44→22:57)
[2019-04-01] MEDS: GABAPENTIN 600 MG TAB PO SCH ×3 (05:52→20:59)
[2019-04-01] MEDS: ACETYLCYSTEINE 20% INHAL SOLN ***DISPENSED BY RESP. INH SCH ×2 (07:09→18:55)
[2019-04-01 07:34] LABS: Albumin Level 2.8 gm/dl (3.4-5.0); Aspartate Aminotransferase 44 U/L (15-37); BUN Creatinine Ratio 23.9 (10-20); Bilirubin Direct < 0.1 mg/dl (0-0.2); Blood Urea Nitrogen 15 mg/dl (7-18); Calcium 9.3 mg/dl (8.5-10.1); Carbon Dioxide 36 mmol/L (21-32); Chloride 97 mmol/L (98-107); Creatinine Clr Calc Pharmacy 79.9 ml/min; Est GFR (African American) 113.8; Est GFR (Non-African American) 98.2; Glucose 203 mg/dl (70-99); Magnesium 1.9 mg/dl (1.8-2.4); Potassium 4.2 mmol/L (3.5-5.1); Sodium 137 mmol/L (136-145)
[2019-04-01 07:37] LABS: Alanine Aminotransferase 28 U/L (12-78); Alkaline Phosphatase 144 U/L (45-117); Bilirubin,Total 0.2 mg/dl (0.2-1); Phosphorus 3.3 mg/dl (2.5-4.9); Total Protein 6.9 gm/dl (6.4-8.2)
[2019-04-01] MEDS: NICOTINE 21 MG/24 HR TDSY TD SCH (08:58)
[2019-04-01] MEDS: DIVALPROEX EXTENDED RELEASE 500 MG TAB PO SCH (08:59)
[2019-04-01] MEDS ORDERED: FOLIC ACID 1 MG in SYRINGE 9.8 ML IV SCH (09:00)
[2019-04-01] MEDS: predniSONE 20 MG TAB PO SCH ×2 (09:00→20:45)
[2019-04-01] MEDS: FOLIC ACID 1 MG TAB PO SCH (09:01)
[2019-04-01] MEDS: BUDESONIDE/FORMOTEROL FUMARATE 80/4.5 60 PUFFS/INHALER INH SCH ×2 (09:02→20:45)
[2019-04-01] MEDS: THIAMINE HCL 100 MG TAB PO SCH (09:02)
[2019-04-01] MEDS: DOXYCYCLINE HYCLATE 100 MG in DEXTROSE 5% 100 ML IV SCH ×2 (09:07→20:46)
[2019-04-01] MEDS ORDERED: LORazepam 1 MG/2 ML VIAL IV PRN (09:19)
[2019-04-01] MEDS ORDERED: LORazepam 3 MG/6 ML VIAL IV PRN (09:19)
[2019-04-01] MEDS ORDERED: ATIVAN IV ALCOHOL WITHDRAWL IV PRN (09:19)
[2019-04-01] MEDS ORDERED: LORazepam 2 MG/4 ML VIAL IV PRN (09:19)
[2019-04-01] MEDS ORDERED: MULTI-VITAMIN INFUSION 10 ML, THIAMINE HCL 100 MG, FOLIC ACID 1 MG in SODIUM CHLORIDE 0... IV ONE (10:00)
[2019-04-01] MEDS: cefTRIAXone SODIUM 2,000 MG in DEXTROSE 5% 50 ML IV SCH (16:10)
--- NOTE | 2019-04-01 18:26 | Hospitalist Progress Note ---
Date of Service April 01, 2019 Assessment & Plan (1) Acute respiratory failure with hypoxia: As noted below Has home O2 monitor Baseline home O2 use is 2L HS only via NC Noted on sleep study (2) Pneumonia: CXR noted for L sided PNA on 03/16, neg CXR on 03/25 and 03/31 Pt finished a course of omnicef and azithro several days prior to admission, however sx have been worse since that time Started on doxy in the ED, will continue for now given pt's risk and worsening sx s/p abx course WBC WNL, afebrile Desats requiring BIPAP Blood cx pending Lactic acid WNL (3) COPD exacerbation: Improved with nebs Will continue with mucomyst for upper airway congestion Prednisone, likely short course Does not have a home neb, CM to assist (4) Alcohol dependence: Last EtOH was prior to ED, around 9a Hx of tremors around 12 hours s/p last drink, no hx of seizures AWAS protocol with proph gabapentin Banana bag, thiamine, folate Pt is accepted to [facility], however cannot go if she needs continuous O2 (5) Alcohol use with intoxication: EtOH level + in ED (6) Hyponatremia: 134 on admission, has been WNL recently Monitor (7) Liver failure, acute: Hx of elevated LFTs WNL on admission Monitor (8) Anemia: Hb is not consistent Has been 8.5-11 over the last few months Monitor B12 pending, although likely to be elevated given banana bag in the ED (9) Depression: continue home meds (10) DVT prophylaxis: SCDs Subjective Patient seen and examined at the bedside. Patient is going to go to [facility] for rehabilitation for alcohol abuse. She is right now on 2 L of oxygen due to COPD exacerbation and requirement to be accepted there is only oxygen during the night. Patient still requires oxygen during the day approximately 2 L. She accepted nicotine patch. She is willing to quit smoking. Patient denies fever, chills, chest pain, abdominal pain, frequency, urgency. Review of Systems Review of Systems: All systems reviewed & are unremarkable except as noted in HPI & below Results & Data Vital Signs (Past 12 Hours) Vital Signs Temp Pulse Resp BP Pulse Ox 04/01/19 16:00 37.4 C 114 H 20 122/64 91 04/01/19 15:12 109 H 20 94 04/01/19 11:45 37.4 C 106 H 18 150/75 H 89 L 04/01/19 11:10 101 H 18 89 L 04/01/19 07:45 36.7 C 80 19 149/83 H 93 04/01/19 07:11 76 18 94 PG Care Time/CCT Total # of Minutes Spent Total Time Spent with Patient: Total time spent is greater than 50% in coordination of care (as documented) at patient's floor/unit and/or counseling patient: (1) Pneumonia Laterality: unspecified laterality Lung location: unspecified part of lung Pneumonia type: due to unspecified organism Qualified Code(s): J18.9 - Pneumonia, unspecified organism (2) Alcohol dependence Substance use status: unspecified alcohol-induced disorder Qualified Code(s): F10.29 - Alcohol dependence with unspecified alcohol-induced disorder (3) Anemia Anemia type: unspecified type Qualified Code(s): D64.9 - Anemia, unspecified
[2019-04-01] MEDS: ESCITALOPRAM OXALATE 20 MG TAB PO SCH (20:44)
[2019-04-01] MEDS: TRAZODONE HCL 100 MG TAB PO PRN (22:42)
[2019-04-02] MEDS: ALBUT/IPRATROP 3MG/0.5MG NEB 3 ML VIAL NEB SCH ×6 (02:57→23:09)
[2019-04-02] MEDS: GABAPENTIN 600 MG TAB PO SCH ×2 (05:31→18:05)
[2019-04-02] MEDS: ACETYLCYSTEINE 20% INHAL SOLN ***DISPENSED BY RESP. INH SCH ×2 (06:48→19:39)
[2019-04-02 07:22] LABS: Hematocrit (blood only) 30.8 % (37-47); Hemoglobin 9.2 g/dL (12.0-16.0); Immature Granulocytes # (auto) 0.02 K/uL (0.00-0.02); Immature Granulocytes % (auto) 0.4 %; Lymphocytes # (auto) 0.32 K/uL (1.2-3.4); Lymphocytes % (auto) 5.6 %; Mean Corpuscular Hemoglobin 26.5 pg (25-34); Mean Corpuscular Hgb Conc 29.9 g/dL (32-36); Mean Corpuscular Volume 88.8 fL (80-100); Mean Platelet Volume 9.2 fL (7.4-10.4); Monocytes # (auto) 0.44 K/uL (0.11-0.59); Monocytes % (auto) 7.7 %; Neutrophils # (auto) 4.93 K/uL (1.4-6.5); Neutrophils % (auto) 86.3 %; Platelet Count 153 K/uL (130-400); RDW Coefficient of Variation 17.3 % (11.5-14.5); RDW Standard Deviation 55.5 fL (36.4-46.3); Red Blood Count 3.47 M/uL (4.2-5.4); White Blood Count 5.71 K/uL (4.8-10.8)
[2019-04-02 07:33] LABS: Partial Thromboplastin Ratio 0.7; Partial Thromboplastin Time 20.3 Seconds (21.0-31.0); Prothrombin Time 9.9 Seconds (9.0-12.0)
[2019-04-02] MEDS: DIVALPROEX EXTENDED RELEASE 500 MG TAB PO SCH (08:26)
[2019-04-02] MEDS: BUDESONIDE/FORMOTEROL FUMARATE 80/4.5 60 PUFFS/INHALER INH SCH ×2 (08:27→20:25)
[2019-04-02] MEDS: FOLIC ACID 1 MG TAB PO SCH (08:27)
[2019-04-02] MEDS: NICOTINE 21 MG/24 HR TDSY TD SCH (08:27)
[2019-04-02] MEDS: THIAMINE HCL 100 MG TAB PO SCH (08:27)
[2019-04-02] MEDS: predniSONE 20 MG TAB PO SCH ×2 (08:27→20:23)
[2019-04-02] MEDS ORDERED: FOLIC ACID 1 MG TAB PO SCH (09:00)
[2019-04-02] MEDS: cefTRIAXone SODIUM 2,000 MG in DEXTROSE 5% 50 ML IV SCH (10:00)
[2019-04-02] MEDS: DOXYCYCLINE HYCLATE 100 MG in DEXTROSE 5% 100 ML IV SCH (10:48)
--- NOTE | 2019-04-02 11:17 | Hospitalist Progress Note ---
Date of Service April 02, 2019 Assessment & Plan (1) Acute respiratory failure with hypoxia: Patient feels better. Will do ambulatory pulse oximetry. The patient does not need oxygen during the day she can be discharged to [facility] and use oxygen only at night. Has home O2 monitor Noted on sleep study (2) Pneumonia: CXR noted for L sided PNA on 03/16, neg CXR on 03/25 and 03/31 Pt finished a course of omnicef and azithro several days prior to admission, however sx have been worse since that time Continue doxycycline for COPD exacerbation for 7 more days. Blood cx pending Lactic acid WNL (3) COPD exacerbation: Improving with nebs Will continue with mucomyst for upper airway congestion Prednisone, likely short course Does not have a home neb, CM to assist Pt now insisting to be discharged home. (4) Alcohol dependence: Last EtOH was prior to ED, around 9a Hx of tremors around 12 hours s/p last drink, no hx of seizures AWAS protocol with proph gabapentin Banana bag, thiamine, folate Pt is accepted to [facility], however cannot go if she needs continuous O2 (5) Alcohol use with intoxication: EtOH level + in ED (6) Hyponatremia: 134 on admission, has been WNL recently Monitor (7) Liver failure, acute: Hx of elevated LFTs WNL on admission Monitor (8) Anemia: Hb is not consistent Has been 8.5-11 over the last few months Monitor B12 pending, although likely to be elevated given banana bag in the ED (9) Depression: continue home meds (10) DVT prophylaxis: SCDs Subjective Patient seen and examined at the bedside. Patient is doing much better today she was with out of oxygen in the morning and above 92%. Patient is now back to 1 L of nasal cannula and she is above 93%. Home patient usually uses oxygen only at night. She continued nicotine patch. She is willing to quit smoking. Patient denies fever, chills, chest pain, abdominal pain, frequency, urgency. Review of Systems Review of Systems: All systems reviewed & are unremarkable except as noted in HPI & below Physical Exam Constitutional: WD/WN, vitals as above + ill appearing, + disheveled and cooperative Eyes: normal visual partida by confrontation and + anicteric sclerae Neck: normal visual inspection and trachea midline Respiratory: normal respiratory effort; no respiratory distress Auscultation: + diminished lung sounds; no crackles and no wheezes Cardiovascular: Rate/Rhythm: regular rhythm and + tachycardic Gastrointestinal (Abdomen): Inspection/Auscultation: abdomen not distended Percussion/Palpation: abdomen soft; abdomen nontender Musculoskeletal: Head/Neck/Chest: normocephalic and head atraumatic Skin: no rashes, warm and dry Neurologic: awake; not confused Speech / Cognition: normal speech Psychiatric: A+Ox3, euthymic affect Results & Data Vital Signs (Past 12 Hours) Vital Signs Temp Pulse Pulse Resp BP Pulse Ox 04/02/19 11:07 97 H 20 88 L 04/02/19 07:42 36.5 C 92 H 18 161/92 H 93 04/02/19 06:49 22 98 04/02/19 03:37 37 C 83 18 148/83 H 94 04/02/19 03:29 81 81 20 91 04/02/19 01:39 83 20 93 04/02/19 00:29 93 H 04/01/19 23:41 36.9 C 95 H 20 161/80 H 91 04/01/19 23:21 99 H 24 92 PG Care Time/CCT Total # of Minutes Spent Total Time Spent with Patient: Total time spent is greater than 50% in coordination of care (as documented) at patient's floor/unit and/or counseling patient: (1) Alcohol dependence Substance use status: unspecified alcohol-induced disorder Qualified Code(s): F10.29 - Alcohol dependence with unspecified alcohol-induced disorder (2) Anemia Anemia type: unspecified type Qualified Code(s): D64.9 - Anemia, unspecified (3) Pneumonia Laterality: unspecified laterality Lung location: unspecified part of lung Pneumonia type: due to unspecified organism Qualified Code(s): J18.9 - Pneumonia, unspecified organism
[2019-04-02] MEDS: LORazepam 1 MG/2 ML VIAL IV PRN ×3 (13:57→20:12)
[2019-04-02] MEDS: DOXYCYCLINE HYCLATE 100 MG CAP PO SCH (20:25)
[2019-04-02] MEDS: ESCITALOPRAM OXALATE 20 MG TAB PO SCH (20:25)
[2019-04-02] MEDS: TRAZODONE HCL 100 MG TAB PO PRN (21:58)
[2019-04-03] MEDS: ALBUT/IPRATROP 3MG/0.5MG NEB 3 ML VIAL NEB SCH ×6 (03:03→22:59)
[2019-04-03] MEDS: GABAPENTIN 600 MG TAB PO SCH (06:01)
[2019-04-03] MEDS: ACETYLCYSTEINE 20% INHAL SOLN ***DISPENSED BY RESP. INH SCH ×2 (07:10→19:15)
[2019-04-03 07:25] LABS: Hematocrit (blood only) 29.7 % (37-47); Hemoglobin 8.7 g/dL (12.0-16.0); Immature Granulocytes # (auto) 0.03 K/uL (0.00-0.02); Immature Granulocytes % (auto) 0.7 %; Lymphocytes # (auto) 0.39 K/uL (1.2-3.4); Mean Corpuscular Hemoglobin 26.4 pg (25-34); Mean Corpuscular Hgb Conc 29.3 g/dL (32-36); Mean Corpuscular Volume 90.3 fL (80-100); Mean Platelet Volume 9.5 fL (7.4-10.4); Monocytes # (auto) 0.24 K/uL (0.11-0.59); Monocytes % (auto) 5.5 %; Neutrophils # (auto) 3.68 K/uL (1.4-6.5); Neutrophils % (auto) 84.8 %; Platelet Count 149 K/uL (130-400); RDW Coefficient of Variation 17.4 % (11.5-14.5); RDW Standard Deviation 56.9 fL (36.4-46.3); Red Blood Count 3.29 M/uL (4.2-5.4); White Blood Count 4.34 K/uL (4.8-10.8)
[2019-04-03 07:38] LABS: Partial Thromboplastin Ratio 0.7; Partial Thromboplastin Time < 20.0 Seconds (21.0-31.0); Prothrombin Time 10.3 Seconds (9.0-12.0)
[2019-04-03] MEDS: DOXYCYCLINE HYCLATE 100 MG CAP PO SCH ×2 (08:12→20:33)
[2019-04-03] MEDS: predniSONE 20 MG TAB PO SCH ×2 (08:12→20:32)
[2019-04-03] MEDS: DIVALPROEX EXTENDED RELEASE 500 MG TAB PO SCH (08:13)
[2019-04-03] MEDS: BUDESONIDE/FORMOTEROL FUMARATE 80/4.5 60 PUFFS/INHALER INH SCH ×2 (08:13→20:32)
[2019-04-03] MEDS: NICOTINE 21 MG/24 HR TDSY TD SCH (08:13)
[2019-04-03] MEDS: THIAMINE HCL 100 MG TAB PO SCH (08:13)
[2019-04-03] MEDS: FOLIC ACID 1 MG TAB PO SCH (08:13)
[2019-04-03] MEDS ORDERED: LORazepam 1 MG/2 ML VIAL IV STA (18:37)
--- NOTE | 2019-04-03 19:07 | Hospitalist Progress Note ---
Date of Service April 03, 2019 Assessment & Plan (1) Acute respiratory failure with hypoxia: Slowly improving. Patient now requires 2 L of oxygen to be above 93%.While she was ambulating she was dropping to 86% without oxygen Has supplemental home O2 monitor. Noted on sleep study Recent is now resistant to going to [facility] for alcohol dependence rehabilitation. She wants to be discharged home when she is clinically improved. Anticipate discharge in 1 to 2 days. I would recommend family meeting with her on her discharge. (2) Pneumonia: CXR noted for L sided PNA on 03/16, neg CXR on 03/25 and 03/31 Pt finished a course of omnicef and azithro several days prior to admission, however sx have been worse since that time Continue doxycycline for COPD exacerbation for 7 more days. Blood cx negative in 48 hours x 2 Lactic acid WNL (3) COPD exacerbation: Improving with nebs Will continue with mucomyst for upper airway congestion Prednisone, likely short course Does not have a home neb, CM to assist (4) Alcohol dependence: Last EtOH was prior to ED, around 9a Hx of tremors around 12 hours s/p last drink, no hx of seizures AWAS protocol with proph gabapentin Banana bag, thiamine, folate Pt is accepted to [facility] rehab, however cannot go if she needs continuous O2 Now patient change her mind about going back to [facility]. (5) Alcohol use with intoxication: EtOH level + in ED (6) Hyponatremia: 134 on admission, has been WNL recently Today 137 Continue monitoring (7) Liver failure, acute: Hx of elevated LFTs WNL on admission Monitor (8) Anemia: Hb is not consistent Has been 8.5-11 over the last few months Monitor B12 833 within normal limits, folate over 24. (9) Depression: continue home meds (10) DVT prophylaxis: SCDs Subjective Patient seen and examined at the bedside. Patient is slowly improving. She requires 2 L of supplemental oxygen to be above 93%. She is hemodynamically stable. Home patient usually uses oxygen only at night. She continued nicotine patch. She is willing to quit smoking. Patient denies fever, chills, chest pain, abdominal pain, frequency, urgency. Review of Systems Review of Systems: All systems reviewed & are unremarkable except as noted in HPI & below Physical Exam Constitutional: WD/WN, vitals as above + ill appearing, + disheveled and cooperative Eyes: normal visual partida by confrontation and + anicteric sclerae Neck: normal visual inspection and trachea midline Respiratory: normal respiratory effort; no respiratory distress Auscultation: + diminished lung sounds; no crackles and no wheezes Cardiovascular: Rate/Rhythm: regular rhythm and + tachycardic Gastrointestinal (Abdomen): Inspection/Auscultation: abdomen not distended Percussion/Palpation: abdomen soft; abdomen nontender Musculoskeletal: Head/Neck/Chest: normocephalic and head atraumatic Skin: no rashes, warm and dry Neurologic: awake; not confused Speech / Cognition: normal speech Psychiatric: A+Ox3, euthymic affect Results & Data Vital Signs (Past 12 Hours) Vital Signs Temp Pulse Pulse Resp BP BP Pulse Ox 04/03/19 18:52 36.8 C 93 H 22 152/82 H 93 04/03/19 15:45 36.7 C 89 20 125/71 90 04/03/19 15:03 81 18 97 04/03/19 11:39 37.1 C 89 20 144/80 H 96 04/03/19 11:06 89 18 96 04/03/19 08:03 36.6 C 70 18 125/76 97 04/03/19 08:00 77 04/03/19 07:18 72 20 97 PG Care Time/CCT Total # of Minutes Spent Total Time Spent with Patient: Total time spent is greater than 50% in coordination of care (as documented) at patient's floor/unit and/or counseling patient: (1) Pneumonia Laterality: unspecified laterality Lung location: unspecified part of lung Pneumonia type: due to unspecified organism Qualified Code(s): J18.9 - Pneumonia, unspecified organism (2) Alcohol dependence Substance use status: unspecified alcohol-induced disorder Qualified Code(s): F10.29 - Alcohol dependence with unspecified alcohol-induced disorder (3) Anemia Anemia type: unspecified type Qualified Code(s): D64.9 - Anemia, unspecified
[2019-04-03] MEDS: ESCITALOPRAM OXALATE 20 MG TAB PO SCH (20:32)
[2019-04-03] MEDS: TRAZODONE HCL 100 MG TAB PO PRN (23:30)
[2019-04-04] MEDS: ALBUT/IPRATROP 3MG/0.5MG NEB 3 ML VIAL NEB SCH ×6 (03:20→22:54)
[2019-04-04] MEDS ORDERED: GABAPENTIN 600 MG TAB PO SCH (06:00)
[2019-04-04 06:42] LABS: Basophils # (auto) 0.01 K/uL (0-0.2); Basophils % (auto) 0.2 %; Hematocrit (blood only) 30.4 % (37-47); Hemoglobin 9.1 g/dL (12.0-16.0); Immature Granulocytes # (auto) 0.02 K/uL (0.00-0.02); Immature Granulocytes % (auto) 0.4 %; Lymphocytes # (auto) 0.55 K/uL (1.2-3.4); Lymphocytes % (auto) 12.4 %; Mean Corpuscular Hemoglobin 26.5 pg (25-34); Mean Corpuscular Hgb Conc 29.9 g/dL (32-36); Mean Corpuscular Volume 88.4 fL (80-100); Mean Platelet Volume 9.1 fL (7.4-10.4); Monocytes # (auto) 0.24 K/uL (0.11-0.59); Monocytes % (auto) 5.4 %; Neutrophils # (auto) 3.63 K/uL (1.4-6.5); Neutrophils % (auto) 81.6 %; Platelet Count 131 K/uL (130-400); RDW Coefficient of Variation 17.6 % (11.5-14.5); RDW Standard Deviation 56.4 fL (36.4-46.3); Red Blood Count 3.44 M/uL (4.2-5.4); White Blood Count 4.45 K/uL (4.8-10.8)
[2019-04-04 06:52] LABS: Partial Thromboplastin Ratio 0.7; Partial Thromboplastin Time < 20.0 Seconds (21.0-31.0); Prothrombin Time 10.3 Seconds (9.0-12.0)
[2019-04-04] MEDS: ACETYLCYSTEINE 20% INHAL SOLN ***DISPENSED BY RESP. INH SCH ×2 (07:04→20:25)
[2019-04-04] MEDS: THIAMINE HCL 100 MG TAB PO SCH (07:53)
[2019-04-04] MEDS: DOXYCYCLINE HYCLATE 100 MG CAP PO SCH ×2 (07:53→20:05)
[2019-04-04] MEDS: predniSONE 20 MG TAB PO SCH (07:53)
[2019-04-04] MEDS: NICOTINE 21 MG/24 HR TDSY TD SCH (07:53)
[2019-04-04] MEDS: FOLIC ACID 1 MG TAB PO SCH (07:53)
[2019-04-04] MEDS: BUDESONIDE/FORMOTEROL FUMARATE 80/4.5 60 PUFFS/INHALER INH SCH ×2 (07:54→20:05)
[2019-04-04] MEDS: DIVALPROEX EXTENDED RELEASE 500 MG TAB PO SCH (07:54)
[2019-04-04] MEDS: guaiFENesin 600 MG TABCR PO SCH ×2 (12:33→20:06)
[2019-04-04] MEDS: LORazepam 1 MG/2 ML VIAL IV PRN ×2 (12:34→16:57)
--- NOTE | 2019-04-04 17:35 | Hospitalist Progress Note ---
Date of Service April 04, 2019 Assessment & Plan (1) Acute respiratory failure with hypoxia: 2nd to COPD exacerbation. Improving. Attempting to d/c or at least wean the NC O2. Cont steroids - wean today. Cont pulmonary toilet, nebs, abx, etc. (2) COPD exacerbation: Improving. Wean steroids today. Add flutter valve. Cont inhalers and nebs. Add mucinex. Cont mucomyst mixed in w/ nebs. Wean NC O2 as tolerated. Finish doxycycline course. (3) Pneumonia: Recent left-sided community-acquired pneumonia earlier this month. Radiographically resolved. (4) Alcohol dependence: Likely mild alcohol withdrawal at this time. Cont AWAS protocol with prophylactic gabapentin. Cont thiamine, folate supplementation. Pt initially was interested in going to [facility] alcohol rehab however she has changed her mind - she confirmed again today she wishes to return home with her at discharge instead. (5) Alcohol use with intoxication: Intoxication was at admission. Resolved. Now in etoh withdrawal. (6) Hyponatremia: resolved (7) Anemia: H/H stable since admission. 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 (8) Depression: continue home meds no issues (9) Acute alcoholic hepatitis: recent LFTs elevated but on last check were improving. repeat the LFTs prior to discharge to ensure normalization. (10) Pancytopenia: Likely due to direct effects of etoh on bone marrow and liver. TSH, B12, Folate levels all wnl. CBC in 1-2 days for stability. (11) DVT prophylaxis: SCDs updated at bedside anticipated d/c date - next 48 hours? Subjective Overall feeling better. at bedside and agrees she is much improved on all levels. Cough is minimal. No sputum production. No orthopnea. Some JARVIS but improved from admission. Walked multiple laps in hallway yesterday without significant limitation. Still requiring NC O2 - only uses such at HS at home. Etoh dependence - last drink was on Saturday of this week. Has some shakes but improved relative to a few days ago. Denies significant anxiety. Telemetry normal overnight. Review of Systems Constitutional: no fever, no chills and no anorexia Respiratory: + wheezing; no hemoptysis and no sputum production Cardiovascular: no chest pain Gastrointestinal: no abdominal pain, no nausea and no vomiting Physical Exam Constitutional: average body habitus; no acute distress and no altered mental status Eyes: no EOM movement deficit and no nystagmus ENMT: external ear and nose normal, oropharynx normal Respiratory: no respiratory distress, no labored breathing and not tachypneic Auscultation: + rales (fine, bases - posteriorly) and + wheezes (anteriorly but none posteriorly) Cardiovascular: Rate/Rhythm: regular rate and regular rhythm Heart Sounds: normal S1 and normal S2; no murmur Vessels: posterior tibial pulses present and dorsalis pedis pulses present; no JVD Extremities: no edema Gastrointestinal (Abdomen): normal bowel sounds, soft, nontender, no hepatosplenomegaly Neurologic: Motor/Sensory: + tremor Psychiatric: Orientation: alert and oriented x 3 Results & Data Vital Signs (Past 12 Hours) Vital Signs Temp Pulse Pulse Resp BP BP Pulse Ox 04/04/19 16:35 37.3 C 100 H 22 141/84 H 96 04/04/19 15:56 100 H 04/04/19 15:07 92 H 16 90 04/04/19 11:42 78 18 91 04/04/19 08:40 36.3 C L 78 20 147/87 H 93 04/04/19 08:00 81 04/04/19 07:11 73 16 94 04/04/19 07:09 73 16 95 Laboratory Results Laboratory Results - last 24 hr 04/04/19 04/04/19 06:27 06:27 WBC 4.45 L RBC 3.44 L Hgb 9.1 L Hct 30.4 L MCV 88.4 MCH 26.5 MCHC 29.9 L RDW Std Deviation 56.4 H RDW Coeff of Don 17.6 H Plt Count 131 MPV 9.1 Immature Gran % (Auto) 0.4 Neut % (Auto) 81.6 Lymph % (Auto) 12.4 [place] % (Auto) 5.4 Eos % (Auto) 0.0 Baso % (Auto) 0.2 Immature Gran # (Auto) 0.02 Neut # (Auto) 3.63 Lymph # (Auto) 0.55 L [place] # (Auto) 0.24 Eos # (Auto) 0.00 Baso # (Auto) 0.01 PT 10.3 INR 1.0 APTT < 20.0 L PTT Ratio 0.7 PG Care Time/CCT Total # of Minutes Spent Total Time Spent with Patient: Total time spent is greater than 50% in coordination of care (as documented) at patient's floor/unit and/or counseling patient: (1) Pneumonia Laterality: unspecified laterality Lung location: unspecified part of lung Pneumonia type: due to unspecified organism Qualified Code(s): J18.9 - Pneumonia, unspecified organism (2) Alcohol dependence Substance use status: unspecified alcohol-induced disorder Qualified Code(s): F10.29 - Alcohol dependence with unspecified alcohol-induced disorder (3) Anemia Anemia type: unspecified type Qualified Code(s): D64.9 - Anemia, unspecified (4) Depression Depression Type: other depression Qualified Code(s): F32.89 - Other specified depressive episodes
[2019-04-04] MEDS: predniSONE 10 MG TABLET PO SCH (20:04)
[2019-04-04] MEDS: ESCITALOPRAM OXALATE 20 MG TAB PO SCH (20:06)
[2019-04-04] MEDS: TRAZODONE HCL 100 MG TAB PO PRN (22:37)
[2019-04-05] MEDS: ALBUT/IPRATROP 3MG/0.5MG NEB 3 ML VIAL NEB SCH ×6 (02:13→23:04)
[2019-04-05] MEDS: ACETYLCYSTEINE 20% INHAL SOLN ***DISPENSED BY RESP. INH SCH ×2 (07:27→20:10)
[2019-04-05 07:35] LABS: BUN Creatinine Ratio 50.9 (10-20); Calcium 8.9 mg/dl (8.5-10.1); Creatinine Clr Calc Pharmacy 97.3 ml/min; Est GFR (Non-African American) 102.7; Potassium 4.3 mmol/L (3.5-5.1)
[2019-04-05] MEDS: BUDESONIDE/FORMOTEROL FUMARATE 80/4.5 60 PUFFS/INHALER INH SCH ×2 (08:13→20:56)
[2019-04-05] MEDS: guaiFENesin 600 MG TABCR PO SCH ×2 (08:13→20:56)
[2019-04-05] MEDS: predniSONE 10 MG TABLET PO SCH ×2 (08:14→20:56)
[2019-04-05] MEDS: DOXYCYCLINE HYCLATE 100 MG CAP PO SCH ×2 (08:14→20:57)
[2019-04-05] MEDS: DIVALPROEX EXTENDED RELEASE 500 MG TAB PO SCH (08:14)
[2019-04-05] MEDS: THIAMINE HCL 100 MG TAB PO SCH (08:14)
[2019-04-05] MEDS: NICOTINE 21 MG/24 HR TDSY TD SCH (08:14)
[2019-04-05] MEDS: FOLIC ACID 1 MG TAB PO SCH (08:14)
[2019-04-05] MEDS ORDERED: chlordiazePOXIDE HCl 25 MG CAP PO ONE (13:16)
--- NOTE | 2019-04-05 20:12 | Hospitalist Progress Note ---
Date of Service April 05, 2019 Assessment & Plan (1) Acute respiratory failure with hypoxia: 2nd to COPD exacerbation. Resolved. She states she ambulated multiple laps in hallway (without O2) and upon return to the room her O2 sats were >90%. With that said she needs 2-step prior to discharge (she already has O2 at home, but doesn't use during the day or outside the home). Cont steroids 30mg BID; would cut dose to 50mg/day starting tomorrow. Cont pulmonary toilet, nebs, abx, etc. (2) COPD exacerbation: Improving. Wean steroids tomorrow from 30mg BID to 50mg/day. Cont to wean every 2 days or so. Cont flutter valve. Cont inhalers and nebs. Cont mucinex. Stop mucomyst. Change nebs from q4h dosing to q6h dosing. Finish doxycycline course (last dose tomorrow). 2-step prior to d/c home. (3) Pneumonia: Recent left-sided community-acquired pneumonia earlier this month. Radiographically resolved. (4) Alcohol dependence: Conts with alcohol withdrawal at this time. Cont AWAS protocol. She received gabapentin protocol previously but that has completed. She continues with severe tremors, anxiety, tachycardia, etc. She has needed IV ativan. To help transition her home - start librium today. She drinks 1/5 vodka each day. Go with librium 50mg BID. If this keeps her comfortable overnight and she uses no IV ativan then would consider d/c home on Saturday with librium taper. Last etoh beverage was 6 days ago; thus, suspect we have 3-4 more days of mild withdrawal ahead. Cont thiamine, folate supplementation. Pt initially was interested in going to [facility] alcohol rehab however she has changed her mind - she confirmed again today she wishes to return home with her at discharge instead. He is supportive of that. (5) Alcohol use with intoxication: Intoxication was at admission. Resolved. Now in etoh withdrawal. (6) Hyponatremia: resolved (7) Anemia: H/H stable since admission. 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 (8) Depression: continue home meds no issues (9) Acute alcoholic hepatitis: LFTs cont to improve. (10) Pancytopenia: Likely due to direct effects of etoh on bone marrow and liver. TSH, B12, Folate levels all wnl. Would check another CBC prior to discharge home for stability. (11) DVT prophylaxis: SCDs updated at bedside again today anticipated d/c date - tomorrow depending on status of etoh withdrawal (see above) Subjective tele stable overnight; occasional episode of tachycardia. she is walking the hallways with minimal JARVIS. cough is minimal. breathing "Feels 100% better." she needed 2 doses of IV ativan yesterday for etoh withdrawal symptoms. she remains very shaky with tremors. she mentions she has had "pheno" (phenobarbital) and librium in the past for etoh withdrawal with good success. she continues to remain focused on the plan of returning home rather than going to [facility] rehab. - who was at bedside today - supports that plan. he agrees her breathing is MUCH better. Review of Systems Constitutional: no fever, no chills and no anorexia Respiratory: + dyspnea on exertion; no cough, no dyspnea and no wheezing Cardiovascular: no chest pain Gastrointestinal: no abdominal pain, no nausea, no vomiting and no constipation Physical Exam Constitutional: average body habitus; no acute distress and no altered mental status ENMT: external ear and nose normal, oropharynx normal Respiratory: no respiratory distress, no labored breathing and not tachypneic Auscultation: + wheezes (minimal today ); no rales Cardiovascular: Rate/Rhythm: regular rate and regular rhythm Heart Sounds: normal S1 and normal S2; no murmur Vessels: posterior tibial pulses present and dorsalis pedis pulses present; no JVD Extremities: no edema Gastrointestinal (Abdomen): normal bowel sounds, soft, nontender, no hepatosplenomegaly Neurologic: Motor/Sensory: + tremor Psychiatric: Orientation: alert and oriented x 3 Affect: + tearful affect (started crying when she realized d/c would not happen today) Results & Data Vital Signs (Past 12 Hours) Vital Signs Temp Pulse Pulse Resp BP Pulse Ox 04/05/19 19:51 36.9 C 89 18 131/76 92 04/05/19 15:40 36.6 C 100 H 18 164/84 H 90 04/05/19 15:14 77 19 97 04/05/19 12:35 37.0 C 101 H 16 163/94 H 90 04/05/19 11:13 87 18 97 Laboratory Results Laboratory Results - last 24 hr 04/05/19 06:27 Sodium 141 Potassium 4.3 Chloride 106 Carbon Dioxide 32 Anion Gap 3.0 BUN 28 H Creatinine 0.55 L Est Cr Clr Drug Dosing 97.3 Est GFR ( Amer) 119.0 Est GFR (Non-Af Amer) 102.7 BUN/Creatinine Ratio 50.9 H Glucose 138 H Calcium 8.9 PG Care Time/CCT Total # of Minutes Spent Total Time Spent with Patient: Total time spent is greater than 50% in coordination of care (as documented) at patient's floor/unit and/or counseling patient: (1) Alcohol dependence Substance use status: unspecified alcohol-induced disorder Qualified Code(s): F10.29 - Alcohol dependence with unspecified alcohol-induced disorder (2) Anemia Anemia type: unspecified type Qualified Code(s): D64.9 - Anemia, unspecified (3) Depression Depression Type: other depression Qualified Code(s): F32.89 - Other specified depressive episodes (4) Pneumonia Laterality: unspecified laterality Lung location: unspecified part of lung Pneumonia type: due to unspecified organism Qualified Code(s): J18.9 - Pneumonia, unspecified organism
[2019-04-05] MEDS: chlordiazePOXIDE HCl 25 MG CAP PO SCH (20:55)
[2019-04-05] MEDS: ESCITALOPRAM OXALATE 20 MG TAB PO SCH (20:58)
[2019-04-05] MEDS: TRAZODONE HCL 100 MG TAB PO PRN (22:04)
[2019-04-06] MEDS: ALBUT/IPRATROP 3MG/0.5MG NEB 3 ML VIAL NEB SCH ×3 (02:20→13:54)
[2019-04-06 06:40] LABS: Hematocrit (blood only) 28.1 % (37-47); Hemoglobin 8.7 g/dL (12.0-16.0); Mean Corpuscular Hemoglobin 27.2 pg (25-34); Mean Corpuscular Volume 87.8 fL (80-100); Mean Platelet Volume 9.1 fL (7.4-10.4); Platelet Count 150 K/uL (130-400); RDW Coefficient of Variation 17.4 % (11.5-14.5); RDW Standard Deviation 55.8 fL (36.4-46.3); White Blood Count 4.67 K/uL (4.8-10.8)
[2019-04-06 07:14] LABS: Albumin Level 2.6 gm/dl (3.4-5.0); Creatinine Clr Calc Pharmacy 99.2 ml/min; Est GFR (African American) 119.7; Est GFR (Non-African American) 103.3; Potassium 4.2 mmol/L (3.5-5.1)
[2019-04-06 07:17] LABS: Albumin Globulin Ratio 0.8 (0.9-2); Bilirubin,Total 0.1 mg/dl (0.2-1); Globulin 3.3 gm/dl (2.5-4.0); Total Protein 5.9 gm/dl (6.4-8.2)
[2019-04-06] MEDS: THIAMINE HCL 100 MG TAB PO SCH (08:42)
[2019-04-06] MEDS: chlordiazePOXIDE HCl 25 MG CAP PO SCH (08:42)
[2019-04-06] MEDS: DIVALPROEX EXTENDED RELEASE 500 MG TAB PO SCH (08:42)
[2019-04-06] MEDS: guaiFENesin 600 MG TABCR PO SCH (08:43)
[2019-04-06] MEDS: DOXYCYCLINE HYCLATE 100 MG CAP PO SCH (08:43)
[2019-04-06] MEDS: FOLIC ACID 1 MG TAB PO SCH (08:43)
[2019-04-06] MEDS: BUDESONIDE/FORMOTEROL FUMARATE 80/4.5 60 PUFFS/INHALER INH SCH (08:44)
[2019-04-06] MEDS: NICOTINE 21 MG/24 HR TDSY TD SCH (08:44)
[2019-04-06] MEDS ORDERED: predniSONE 50 MG TAB PO SCH (09:00)
[2019-04-06] MEDS ORDERED: INFLUENZA ADMINISTRATION CHARGE ONE (11:59)
[2019-04-06] MEDS ORDERED: PNEUMOCOCCAL ADMINISTRATION CHARGE ONE (11:59)
[2019-04-06] MEDS ORDERED: PNEUMOCOCCAL POLYSACCHARIDES 25 MCG/0.5 ML VIAL/SYR IM ONE (11:59)
[2019-04-06] MEDS ORDERED: INFLUENZA VACCINE HIGH DOSE 65+ 0.5 ML SYR IM ONE (11:59)
[2019-04-06] MEDS ORDERED: Nursing to Pharmacy Communication ONE (13:43)
[2019-04-06] MEDS ORDERED: chlordiazePOXIDE HCl 25 MG CAP PO SCH (14:00)
--- NOTE | 2019-04-06 15:29 | Discharge Summary ---
Date of Service April 06, 2019 Admission HPI Per Admitting Provider 58 y/o F c/o worsening SOB and EtOH detox. Pt has been having issues with her breathing for the last few weeks. She was seen in the ED on 03/16 and dx with L PNA. She was started on omnicef and azithro at that time. She initially felt much better, but then states that she plateaued towards the end of the abx. She was seen in the ED again on 03/25 for similar sx. CXR neg at that time. No further abx prescribed. Since finishing abx about 3 days ago, pt has had worsening of her sx. She is SOB, both at rest and with activity. Her nausea w/o emesis has returned. She had been having diarrhea prior, however this stopped once she started taking Immodium. Pt uses HS only O2 2L via NC at baseline. She has been using it continuous at 4L for the last few weeks. Pt denies fever, chest pain, abd pain, v/c, LE pain or swelling. Pt does not have a home neb. She has not been eating much due to nausea and decreased appetite. She does feel like should would like to try PO now. Pt has been trying to d/c alcohol use for some time. She was accepted to [facility] recently, but they could not take her over the last few weeks due to the increased O2 requirement. She can go there with HS only use, but not if she needs the O2 to ambulate. Per , if she needs to have a higher O2 requirement, she could go to [place], however her preference is . Pt's last alcohol was around 9a today, prior to coming to the ED. She has a hx of tremors as soon as the next day after alcohol use. She drinks a 500ml bottle of vodka daily generally. No certain hx of seizures related to withdrawal, however she states that she might have had "a small one" many years ago at work. Pt has been trying to quit smoking as well using nicotine patches. Principal Diagnosis COPD exacerbation Discharge Exam Constitutional WD/WN, vitals as above Eyes PERRL, conjunctivae normal, anicteric sclerae ENMT external ear and nose normal, oropharynx normal Neck trachea midline, no thyromegaly Respiratory normal respiratory effort, lungs clear to auscultation (decreased breath sounds overall) Cardiovascular RRR, no murmur, no edema Gastrointestinal (Abdomen) normal bowel sounds, soft, nontender, no hepatosplenomegaly Musculoskeletal no cyanosis or clubbing, extremities motor strength 5/5 Skin no rashes, warm and dry Neurologic patellar DTR's 2+ bilat, sensation intact and PERRL, EOMI, accommodation nl, no face palsy, no dysarthria Psychiatric Orientation: alert and oriented x 3 Affect: + anxious affect and + tearful affect Lymphatic no cervical or axillary lymphadenopathy Discharge Data Allergies Allergy/AdvReac Type Severity Reaction Status Date / Time RACIEL Inhibitors AdvReac Mild COUGH Verified 03/31/19 12:00 naltrexone [From Vivitrol] AdvReac Unknown Unverified 03/31/19 12:00 Consultations 03/31/19 11:51 ED Decision to Admit Stat 03/31/19 14:32 Consult Case Management - Discharge Planning Routine 04/01/19 09:21 Consult Case Management - Discharge Planning Routine Hospital Course (1) Acute respiratory failure with hypoxia: 2nd to COPD exacerbation. Resolved. 2 step performed, no need for home oxygen (2) COPD exacerbation: Improved dramatically with Prednsione, nebulizers finished course of Doxycycline while admitted will d/c on Prednisone, 40mg daily, taper by 10mg every 3 days Cont inhalers and nebs. Cont mucinex. (3) Pneumonia: Recent left-sided community-acquired pneumonia earlier this month. Radiographically resolved. completed 7 days of Doxycycline while admitted for COPD exacerbation (4) Alcohol dependence: Conts with alcohol withdrawal at this time. Cont AWAS protocol. She received gabapentin protocol previously but that has completed. She continues with severe tremors, anxiety, tachycardia, etc. she needed several dose of Ativan IV but none within 24 hours of discharge will d/c home on prolonged Librium taper as the Librium helped her greatly she has been to alcohol / drug rehab several times, she knows all the recommendations she has a supportive family, confirmed there is no alcohol in her home, her does not drink she has information on AA group meetings locally Cont thiamine, folate supplementation. follow up with PCP (5) Alcohol use with intoxication: Intoxication was at admission. Resolved. Now in etoh withdrawal. (6) Hyponatremia: resolved (7) Anemia: H/H stable since admission. 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 (8) Depression: continue home meds no issues (9) Acute alcoholic hepatitis: LFTs improved dramatically, no further signs of hepatitis (10) Pancytopenia: Likely due to direct effects of etoh on bone marrow and liver. TSH, B12, Folate levels all wnl. can be followed outpatient (11) DVT prophylaxis: SCDs (12) Tobacco abuse: smokes 1 ppd motivated to quit will prescribe Nicoderm 21mcg x week, 14mcg x week, 7mcg x week then stop Total Time Total Time Spent Total Time Spent (In Minutes): 45 minutes Total Time Includes: Examination of the Patient, Discharge Planning and Medication Reconciliation Discharge Plan Discharge Items Patient Disposition: Home - Self-Care Reason For Visit: COPD EXCERBATION Discharge Diagnosis: COPD Exacerbation Alcohol dependency with signs of withdrawal Tobacco dependency Hypoxia Condition on Discharge: Good Goals: complete treatment of COPD exacerbation continue to abstain from alcohol and tobacco utilize family, support groups, counseling and psychiatry to help stay sober Activity: Resume your previous activity Non-emergency contact: Primary Care Provider Call non-emergency contact if: you have any medication questions, your symptoms worsen and you have a fever Follow-up/Referrals: Bentley Childs Jr, [Primary Care Provider] - 04/13/19 11:00 am (Please, follow up with Dr. Childs on SaturdayApril 13 at 11:00 am. *If you need to change this appointment, call the office at [phone].) Diet: Regular Addtl Attending Provider Instructions: Medications: - PREDNISONE: taper as instructed, starting tomorrow, 40mg daily x 3, 30mg daily x 3, 20mg daily x 3, 10mg daily x 3 then stop - LIBRIUM: 50mg (2 caps) twice a day for a week, 25mg twice a day for a week, 25mg daily for a week then stop - NICODERM CQ: 21mcg patch for a week, 14mcg patch for a week, 7mcg patch for a week then stop - FOLIC ACID and THIAMINE: take for the next month as prescribed - MUCINEX: take for the next week to help mobilize sputum COPD exacerbation: resolving with steroids and you completed course of antibiotics complete Prednisone taper as prescribed Alcohol abuse, withdrawal use Librium as prescribed, taper slowly over next three weeks, DO NOT DRINK WITH LIBRIUM you have the information for support groups such as AA you know the importance of self help, healthy life choices, family supports, avoiding triggers for alcohol do not keep alcohol in the house follow up with counseling, psychiatry as needed Tobacco abuse: use Nicoderm patches as prescribed FOLLOW UP - call for appointment with Dr. Childs next week Pending Studies at Discharge: No Stand-Alone Forms: My [facility], Smoking Cessation, Suicide Prevention Resources Medications and DC Order Prescriptions: New nicotine [Nicoderm CQ] 21 mg/24 hr Patch 24 Hour 21 mg transdermal QAM 7 Days Qty: 7 RF: 0 thiamine HCl (vitamin B1) [Vitamin B-1] 100 mg Tablet 100 mg PO QAM 30 Days Qty: 30 RF: 0 chlordiazepoxide HCl 25 mg Capsule 50 mg PO UD 21 Days Qty: 42 RF: 0 folic acid 1 mg Tablet 1 mg PO QAM 30 Days Qty: 30 RF: 0 guaifenesin [Mucinex] 600 mg Tablet Extended Release 12hr 1,200 mg PO Q12 7 Days Qty: 28 RF: 0 prednisone 10 mg tablet 10 mg PO UD 12 Days Qty: 30 RF: 0 nicotine [Nicoderm CQ] 7 mg/24 hr patch 24 hour 1 patch TD DAILY Qty: 7 RF: 0 nicotine [Nicoderm CQ] 14 mg/24 hr patch 24 hour 1 patch TD DAILY Qty: 7 RF: 0 Continued trazodone 100 mg tablet 100 mg PO DAILY PRN (Reason: Unknown) RF: 0 divalproex 500 mg tablet extended release 24 hr 500 mg PO DAILY RF: 0 escitalopram oxalate [Lexapro] 20 mg tablet 20 mg PO HS RF: 0 Symbicort 80-4.5 mcg/actuation Hfa Aerosol Inhaler 2 puff INHALATION BID RF: 0 albuterol sulfate 90 mcg/actuation HFA aerosol inhaler 2 inha INH Q6H PRN (Reason: shortness of breath or wheezing) Qty: 8 RF: 0 Combivent Respimat 20-100 mcg/actuation mist 1 puffs INH QID Qty: 4 RF: 3 Discharge Orders: Discharge Order (Routine); Ordered 04/06/19 Ordered By: Dann Sanchez Admission Data Admit Date/Time: 03/31/19 13:22 Attending Provider: Dann Sanchez Admit Provider: Herlinda Gruber Primary Care Provider: Bentley Childs Jr Other Providers: Herlinda Gruber Other Interventions: Discharge Summary Assessment (RN) Last Done: 04/06/19 13:02 DC Date/Time DO NOT enter until pt leaves facility: 04/06/19 14:36
== END 2019-04-06 14:36 | disposition home or self-care (01) | DRG 193 ==
LOC: ED 10:17 → 2N 13:22 → SUATTDRO 13:22 → 2N 14:03

== ENCOUNTER 2019-07-16 18:49 | Inpatient (IN) ==
[2019-07-16] MEDS ORDERED: ALBUT/IPRATROP 3MG/0.5MG NEB 3 ML VIAL INH STA (19:06)
--- NOTE | 2019-07-16 19:20 | XRay Report ---
XR chest 1V portable HISTORY: 59 years-old Female Dyspnea acute shortness of breath COMPARISON: Chest radiograph 03/31/2019, CTA chest 11/25/2018 TECHNIQUE: Portable AP view of the chest FINDINGS: Cardiomediastinal and hilar silhouettes are unchanged. Emphysema with chronic fibrotic changes. Scatt ered calcified granulomata redemonstrated. Reticular nodular densities of the left lung base redemons trated with 8 mm nodular opacity. There is no pneumothorax, pleural effusion or overt pulmonary edema . Hiatal hernia. Bones of the chest appear grossly intact. IMPRESSION: 1. Mild reticular nodular opacities of the left lung base are unchanged suggestive of atelectasis/sca rring with chronic pneumonitis considered less likely. 2. Emphysema. 3. Chronic granulomatous disease. 4. Hiatal hernia. ACT 112: Negative or not required by law. The above report was generated using voice recognition software. It may contain grammatical, syntax o r spelling errors. Results electronically sent 07/16/2019 7:19 PM to: Bright Augustine DO Electronically signed by: Idris Lawrence M.D. 07/16/2019 7:19 PM
--- NOTE | 2019-07-16 19:31 | Emergency Department Note ---
Entered by Sloane Lee acting as a scribe for Bright Augustine DO History of Present Illness General Chief complaint: Detox Request Stated complaint: DETOX, COPD Time Seen by Provider: 07/16/19 18:57 Source: patient and family () Limitations: no limitations History of Present Illness Onset (ago): hour(s) 1 Location: chest Severity: similar to prior episodes Pain Consistency: + other (constant) Maximum Pain Intensity: 0 Quality: + other (SOB) Associated symptoms: + denies other symptoms (abdominal pain) The patient is a 59 year old female who presents to the Emergency Room with complaints of constant SOB that began about one hour ago. Her , at bedside, states that this is similar to her past episodes of COPD exacerbation. The patient's notes that she had vodka to drink about one hour ago. She denies any abdominal pain. Her notes that she smokes cigarettes when she drinks, causing the COPD exacerbation. The patient requested a detox, stating that she has done that at this hospital before. The patient notes a history of COPD, alcoholism, and alcohol withdrawal. She states that she uses an inhaler at home. Home Medications Home Medications Medication Instructions Recorded Confirmed Type budesonide-formoterol [Symbicort] 2 puff INHALATION BID 08/13/18 07/16/19 History trazodone 100 mg PO HS PRN 08/13/18 07/16/19 History Combivent Respimat 1 puffs INH QID #4 gm 11/28/18 07/16/19 Rx albuterol sulfate 2 puff INH Q6H PRN 07/16/19 07/16/19 History Allergies Allergy/AdvReac Type Severity Reaction Status Date / Time RACIEL Inhibitors AdvReac Mild COUGH Verified 07/16/19 20:39 naltrexone [From Vivitrol] AdvReac Hair Verified 07/16/19 20:39 loss/ingrown hairs over body Past Med/Surg History Medical History Alcohol withdrawal syndrome (Acute) Alcoholic hepatitis (Chronic) Ascites (Acute) Asthma (Chronic) Constipation (Acute) COPD (chronic obstructive pulmonary disease) (Chronic) Depression Emphysema of lung ETOH abuse (Resolved 08/17/13) Jaundice (Acute) Left lower lobe pneumonia Leukocytosis (Acute 04/21/14) Liver failure, acute (04/21/14) Parapneumonic effusion Pneumonia Sepsis due to Streptococcus pneumoniae Tachycardia (Acute 08/17/13) Surgical History S/P removal of ovarian cyst Family History Father Hypertension Myocardial infarction Social History Preferred Language: Slovak Communication Ability: Effective Food Safety Coordinator Required: No Beliefs That Will Affect Care: None marital status: Current Living Situation: Spouse Feels Safe at Home: Yes Smoking Status: Current every day smoker Tobacco Type: cigarettes ; Cigarettes Per Day: 20 ; Second Hand Exposure: Yes ; Hx Alcohol Use: Yes Alcohol type: hard liquor Alcohol Intake Frequency Comment: 500 ml a day Hx Substance Use: Yes substance use type: marijuana Last Used Substance: Days (ago) Review of Systems See HPI for pertinent positives & negatives. and A total of 10 systems reviewed and were otherwise negative Physical Exam Vital Signs Vital Signs - 24 hr 07/16/19 18:53 07/16/19 19:46 07/16/19 19:50 Temperature 36.5 C Temperature Source Oral Pulse Rate 102 H 106 H Pulse Rate [Apical] 106 H Pulse Rhythm Regular Pulse Rhythm [Apical] Regular Respiratory Rate 30 H 20 20 Respiratory Effort / Characteristics SOB on Exertion Respiratory Depth Shallow Respiratory Pattern Regular Blood Pressure 116/84 Blood Pressure [Right Arm] 122/88 Blood Pressure Mean 94 Blood Pressure Mean [Right Arm] 99 Blood Pressure Position Sitting Blood Pressure Position [Right Arm] Lying Pulse Oximetry 100 91 91 Oxygen Delivery Method Nasal Cannula Nasal Cannula Nasal Cannula Oxygen Flow Rate 3 2 2 Sepsis Recent Fever Within 48 Hours No Sepsis New/Unexplained Change in Mental Status No Sepsis Action Taken by Nursing No Action Required 07/16/19 19:51 07/16/19 20:44 07/16/19 21:10 Temperature Temperature Source Pulse Rate Pulse Rate [Apical] 94 H 106 H 104 H Pulse Rhythm Pulse Rhythm [Apical] Regular Respiratory Rate 20 20 18 Respiratory Effort / Characteristics Non-Labored Spontaneous Respiratory Depth Respiratory Pattern Blood Pressure Blood Pressure [Right Arm] 122/68 119/62 Blood Pressure Mean Blood Pressure Mean [Right Arm] 86 81 Blood Pressure Position Blood Pressure Position [Right Arm] Sitting Pulse Oximetry 92 100 95 Oxygen Delivery Method Nasal Cannula Nebulizer Nasal Cannula Oxygen Flow Rate 1 2 Sepsis Recent Fever Within 48 Hours Sepsis New/Unexplained Change in Mental Status Sepsis Action Taken by Nursing CONSTITUTIONAL/VITAL SIGNS: Reviewed / noted above. GENERAL: Non-toxic in appearance. INTEGUMENTARY: Warm, dry, and [place]. HEAD: Normocephalic. EYES: without scleral icterus or trauma. ENT/OROPHARYNX: clear and moist. LYMPHADENOPATHY/NECK: Is supple without lymphadenopathy or meningismus. RESPIRATORY: Lungs clear and equal. Diminished breaths sounds bilaterally. Increased work of breathing. Conversational dyspnea. CARDIOVASCULAR: Regular rate and rhythm. GI/ABDOMEN: Soft and nontender. No organomegaly or pulsatile mass. No rebound or guarding. Normal bowel sounds. EXTREMITIES: Warm and well perfused. BACK: No CVA tenderness. NEUROLOGICAL: Intact without focal deficits. PSYCHIATRIC: normal affect. MUSCULOSKELETAL: Normally developed with good muscle tone. Course Course 1858: The patient was evaluated in room C09. A complete history and physical exam was performed. 1935: I updated the patient on her results and she was in agreement with the treatment plan. 2119: I spoke with Dr. Mederos, [facility] hospitalist, about the patient's case. He will further evaluate the patient. Administered Medications Discontinued Medications Albuterol (Duoneb) 12 ml INH ONE STA Stop: 07/16/19 19:07 Last Admin: 07/16/19 19:51 Dose: 12 ml Documented by: [id number] Medical Decision Making Differential Diagnosis Differential diagnoses includes but is not limited to pneumonia, bronchitis, COPD/Asthma exacerbation, pneumothorax, pulmonary embolism, congestive heart failure, acute coronary syndrome Medical Records Attestation: I reviewed the patient's medical records. Home Medications Current Medication List: was personally reviewed by me Laboratory Data Attestation: I reviewed the patient's lab results. Result diagrams: 07/16/19 19:26 07/16/19 19:26 Lab Results 07/16/19 07/16/19 07/16/19 Range/Units 19:26 19:26 19:26 WBC 5.44 (4.8-10.8) K/uL RBC 4.04 L (4.2-5.4) M/uL Hgb 8.9 L (12.0-16.0) g/dL Hct 31.9 L (37-47) % MCV 79.0 L (80-100) fL MCH 22.0 L (25-34) pg MCHC 27.9 L (32-36) g/dL RDW Std Deviation 52.0 H (36.4-46.3) fL RDW Coeff of Don 18.0 H (11.5-14.5) % Plt Count 220 (130-400) K/uL MPV 9.4 (7.4-10.4) fL Immature Gran % (Auto) 0.2 % Neut % (Auto) 53.8 % Lymph % (Auto) 34.2 % Clarke % (Auto) 9.9 % Eos % (Auto) 1.3 % Baso % (Auto) 0.6 % Immature Gran # (Auto) 0.01 (0.00-0.02) K/uL Neut # (Auto) 2.93 (1.4-6.5) K/uL Lymph # (Auto) 1.86 (1.2-3.4) K/uL Clarke # (Auto) 0.54 (0.11-0.59) K/uL Eos # (Auto) 0.07 (0-0.5) K/uL Baso # (Auto) 0.03 (0-0.2) K/uL PT 9.6 (9.0-12.0) Seconds INR 0.9 (0.9-1.1) APTT 22.5 (21.0-31.0) Seconds PTT Ratio 0.8 VBG pH (7.36-7.41) VBG pCO2 (38-50) mmHg VBG pO2 mmHg VBG HCO3 mmol/L VBG O2 Saturation % VBG Base Excess mEq/L Barometric Pressure mm/Hg Sodium 138 (136-145) mmol/L Potassium 3.5 (3.5-5.1) mmol/L Chloride 98 (98-107) mmol/L Carbon Dioxide 30 (21-32) mmol/L Anion Gap 10.0 (3-11) BUN 7 (7-18) mg/dl Creatinine 0.55 L (0.6-1.2) mg/dl Est Cr Clr Drug Dosing Not Reportable Est GFR ( Amer) 118.2 Est GFR (Non-Af Amer) 101.9 BUN/Creatinine Ratio 12.7 (10-20) Glucose 96 (70-99) mg/dl Calcium 9.3 (8.5-10.1) mg/dl Magnesium 1.7 L (1.8-2.4) mg/dl Total Bilirubin 0.2 (0.2-1) mg/dl AST 41 H (15-37) U/L ALT 22 (12-78) U/L Alkaline Phosphatase 153 H (45-117) U/L Troponin I < 0.015 (0-0.045) ng/ml Total Protein 7.9 (6.4-8.2) gm/dl Albumin 3.5 (3.4-5.0) gm/dl Globulin 4.4 H (2.5-4.0) gm/dl Albumin/Globulin Ratio 0.8 L (0.9-2) Ethyl Alcohol mg/dL (0-3) mg/dl Influenza Type A (PCR) (Neg) Influenza Type B (PCR) (Neg) 07/16/19 07/16/19 07/16/19 Range/Units 19:26 19:26 19:40 WBC (4.8-10.8) K/uL RBC (4.2-5.4) M/uL Hgb (12.0-16.0) g/dL Hct (37-47) % MCV (80-100) fL MCH (25-34) pg MCHC (32-36) g/dL RDW Std Deviation (36.4-46.3) fL RDW Coeff of Don (11.5-14.5) % Plt Count (130-400) K/uL MPV (7.4-10.4) fL Immature Gran % (Auto) % Neut % (Auto) % Lymph % (Auto) % Clarke % (Auto) % Eos % (Auto) % Baso % (Auto) % Immature Gran # (Auto) (0.00-0.02) K/uL Neut # (Auto) (1.4-6.5) K/uL Lymph # (Auto) (1.2-3.4) K/uL Clarke # (Auto) (0.11-0.59) K/uL Eos # (Auto) (0-0.5) K/uL Baso # (Auto) (0-0.2) K/uL PT (9.0-12.0) Seconds INR (0.9-1.1) APTT (21.0-31.0) Seconds PTT Ratio VBG pH 7.42 H (7.36-7.41) VBG pCO2 51 H (38-50) mmHg VBG pO2 44 mmHg VBG HCO3 32 mmol/L VBG O2 Saturation 75.0 % VBG Base Excess 6.9 mEq/L Barometric Pressure 731.4 mm/Hg Sodium (136-145) mmol/L Potassium (3.5-5.1) mmol/L Chloride (98-107) mmol/L Carbon Dioxide (21-32) mmol/L Anion Gap (3-11) BUN (7-18) mg/dl Creatinine (0.6-1.2) mg/dl Est Cr Clr Drug Dosing Est GFR ( Amer) Est GFR (Non-Af Amer) BUN/Creatinine Ratio (10-20) Glucose (70-99) mg/dl Calcium (8.5-10.1) mg/dl Magnesium (1.8-2.4) mg/dl Total Bilirubin (0.2-1) mg/dl AST (15-37) U/L ALT (12-78) U/L Alkaline Phosphatase (45-117) U/L Troponin I (0-0.045) ng/ml Total Protein (6.4-8.2) gm/dl Albumin (3.4-5.0) gm/dl Globulin (2.5-4.0) gm/dl Albumin/Globulin Ratio (0.9-2) Ethyl Alcohol mg/dL 329.5 H (0-3) mg/dl Influenza Type A (PCR) Neg for Influ A (Neg) Influenza Type B (PCR) Neg for Influ B (Neg) Imaging Data Radiologist's Impression: Radiology results as stated below per my review and the radiologist's interpretation: XR chest 1V portable HISTORY: 59 years-old Female Dyspnea acute shortness of breath COMPARISON: Chest radiograph 03/31/2019, CTA chest 11/25/2018 TECHNIQUE: Portable AP view of the chest FINDINGS: Cardiomediastinal and hilar silhouettes are unchanged. Emphysema with chronic fibrotic changes. Scattered calcified granulomata redemonstrated. Reticular nodular densities of the left lung base redemonstrated with 8 mm nodular opacity. There is no pneumothorax, pleural effusion or overt pulmonary edema. Hiatal hernia. Bones of the chest appear grossly intact. IMPRESSION: 1. Mild reticular nodular opacities of the left lung base are unchanged suggestive of atelectasis/scarring with chronic pneumonitis considered less likely. 2. Emphysema. 3. Chronic granulomatous disease. 4. Hiatal hernia. ACT 112: Negative or not required by law. The above report was generated using voice recognition software. It may contain grammatical, syntax or spelling errors. Results electronically sent 07/16/2019 7:19 PM to: Bright Augustine DO Electronically signed by: Idris Lawrence M.D. 07/16/2019 7:19 PM ECG Data Attestation: I personally reviewed and interpreted this ECG as follows: Indication: + SOB/dyspnea Rate (beats per minute): 92 Rhythm: + normal sinus ECG Intervals/blocks: + Normal QT-c ECG ST segments: no ST elevation ECG Findings: no PVCs Blood Pressure Blood Pressure Findings: Elevated blood pressure Blood Pressure Disposition: further management by hospitalist MDM Narrative This is a 59-year-old female who presents to the ED with a chief complaint of "detox". The patient states that she is an alcoholic. She smokes heavily when she drinks. She recently has been drinking vodka. Her last drink was 1 hour ago. She presents short of breath. The patient states that she has been adm itted for detox in the past, however, reviewing the records it appears she has been admitted for pneumonia and respiratory issues and hypoxia. The patient has conversational dyspnea. She has increased work of breathing. She does use oxygen at home at 2 L but is requiring 3 L here. She appears weak and tired. She is afebrile. Her heart rate was 102. Respiratory rate is 30. She is diminished breath sounds bilaterally. The patient's chest x-ray reveals findings suggesting COPD. Complete metabolic panel was unremarkable. CBC reveals chronic anemia. Alcohol level is 329. Flu swab was negative. A VBG shows a normal acid-base status with a PCO2 of 51 and a PO2 of 44. The patient was told the results. Because of her increased work of breathing, COPD history, the patient will be seen by the hospitalist for further evaluation and care. Impression & Plan COPD exacerbation Discharge Plan Visit Data Chief Complaint: Detox Request Stated Complaint: DETOX, COPD ED Provider: Bright Augustine Discharge Problem: COPD exacerbation Patient Disposition: Being Evaluated by Hospitalist Forms Stand Alone Forms: [facility], Suicide Prevention Resources Prescriptions Prescriptions: No Action trazodone 100 mg tablet 100 mg PO HS PRN (Reason: Sleep) RF: 0 budesonide-formoterol [Symbicort] 80-4.5 mcg/actuation Hfa Aerosol Inhaler 2 puff INHALATION BID RF: 0 Combivent Respimat 20-100 mcg/actuation mist 1 puffs INH QID Qty: 4 RF: 3 albuterol sulfate 90 mcg/actuation HFA aerosol inhaler 2 puff INH Q6H PRN (Reason: Shortness Of Breath Or Wheezing) RF: 0 Referrals Referrals: Bentley Childs Jr, DO [Primary Care Provider] - The scribe's documentation has been prepared under my direction and personally reviewed by me in its entirety. I confirm that the note above accurately reflects all work, treatment, procedures, and medical decision making performed by me.
[2019-07-16 19:52] LABS: Base Excess VBG 6.9 mEq/L; pH VBG 7.42 (7.36-7.41)
[2019-07-16 20:04] LABS: Alanine Aminotransferase 22 U/L (12-78); Albumin Level 3.5 gm/dl (3.4-5.0); Aspartate Aminotransferase 41 U/L (15-37); BUN Creatinine Ratio 12.7 (10-20); Blood Urea Nitrogen 7 mg/dl (7-18); Calcium 9.3 mg/dl (8.5-10.1); Carbon Dioxide 30 mmol/L (21-32); Chloride 98 mmol/L (98-107); Est GFR (African American) 118.2; Est GFR (Non-African American) 101.9; Glucose 96 mg/dl (70-99); Magnesium 1.7 mg/dl (1.8-2.4); Potassium 3.5 mmol/L (3.5-5.1); Sodium 138 mmol/L (136-145)
[2019-07-16 20:08] LABS: Albumin Globulin Ratio 0.8 (0.9-2); Alkaline Phosphatase 153 U/L (45-117); Bilirubin,Total 0.2 mg/dl (0.2-1); Globulin 4.4 gm/dl (2.5-4.0); INR 0.9 (0.9-1.1); Partial Thromboplastin Ratio 0.8; Partial Thromboplastin Time 22.5 Seconds (21.0-31.0); Prothrombin Time 9.6 Seconds (9.0-12.0); Total Protein 7.9 gm/dl (6.4-8.2); Troponin I < 0.015 ng/ml (0-0.045)
[2019-07-16 20:22] LABS: Influenza A virus by PCR Neg for Influ A (Neg); Influenza B virus by PCR Neg for Influ B (Neg)
[2019-07-16 20:44] LABS: Basophils # (auto) 0.03 K/uL (0-0.2); Basophils % (auto) 0.6 %; Eosinophils # (auto) 0.07 K/uL (0-0.5); Eosinophils % (auto) 1.3 %; Hematocrit (blood only) 31.9 % (37-47); Hemoglobin 8.9 g/dL (12.0-16.0); Immature Granulocytes # (auto) 0.01 K/uL (0.00-0.02); Immature Granulocytes % (auto) 0.2 %; Lymphocytes # (auto) 1.86 K/uL (1.2-3.4); Lymphocytes % (auto) 34.2 %; Mean Corpuscular Hgb Conc 27.9 g/dL (32-36); Mean Platelet Volume 9.4 fL (7.4-10.4); Monocytes # (auto) 0.54 K/uL (0.11-0.59); Monocytes % (auto) 9.9 %; Neutrophils # (auto) 2.93 K/uL (1.4-6.5); Neutrophils % (auto) 53.8 %; Platelet Count 220 K/uL (130-400); Red Blood Count 4.04 M/uL (4.2-5.4); White Blood Count 5.44 K/uL (4.8-10.8)
[2019-07-16] MEDS ORDERED: ACETAMINOPHEN 325 MG TAB PO PRN (22:39)
[2019-07-16] MEDS ORDERED: MAGNESIUM HYDROXIDE SUSP 30 ML UDC PO PRN (22:39)
[2019-07-16] MEDS ORDERED: ONDANSETRON INJ 2 MG/ML 2 ML VIAL IV PRN (22:39)
[2019-07-16] MEDS ORDERED: POLYETHYLENE (MIRALAX) 17 GM PACK PO PRN (22:39)
[2019-07-16] MEDS ORDERED: TRAZODONE HCL 100 MG TAB PO PRN (22:39)
[2019-07-16] MEDS ORDERED: ALUMINUM/MAGNESIUM SUSP 30 ML UDC PO PRN (22:39)
--- NOTE | 2019-07-16 22:40 | History & Physical Report ---
Date of Service July 16, 2019 Assessment & Plan (1) COPD exacerbation: Admit to monitored bed. Solu-Medrol 40 mg IV every 8 hours Duonebs every 4 hours while awake and every 2 hours when necessary. Doxycycline 100 mg p.o. twice daily Guaifenesin extended release 600 mg p.o. twice daily Nasal cannula 2 L oxygen as which she wears at home, titrate to keep pulse ox 92 to 94%. Present on Admission?: Yes (2) Tobacco abuse: Tobacco cessation counseling. NicoDerm patch Present on Admission?: Yes (3) Alcohol withdrawal syndrome: AWSS protocol. Counseling Present on Admission?: Yes (4) Depression: Depression/sleep disturbance- Continue trazodone 100 mg p.o. at bedtime as needed Present on Admission?: Yes (5) Sleep disturbance: See above Present on Admission?: Yes History of Present Illness Chief Complaint: The patient presents to the emergency department with complaint of worsening shortness of breath, that initially began 4 days ago, and is worsened over the past few hours prior to arrival. Primary Care Provider: Bentley Childs Jr, DO Patient is a 59-year-old female with a past medical history including COPD, alcohol dependence, alcohol withdrawal, ascites, parapneumonic effusion, sepsis due to strep pneumoniae, depression, ADHD, sepsis, left lower lobe pneumonia, jaundice, alcohol abuse, alcoholic hepatitis and bronchitis. She presents to [facility] emergency department with worsening shortness of breath over the past 4 days, which she notes is aggravated by her tobacco use, and her recent resumption of alcohol use. She is concerned about her alcohol use, and is afraid to go through withdrawal. Allergies Allergy/AdvReac Type Severity Reaction Status Date / Time RACIEL Inhibitors AdvReac Mild COUGH Verified 07/16/19 20:39 naltrexone [From Vivitrol] AdvReac Hair Verified 07/16/19 20:39 loss/ingrown hairs over body Home Medications Home Medications Medication Instructions Recorded Confirmed Type budesonide-formoterol [Symbicort] 2 puff INHALATION BID 08/13/18 07/16/19 History trazodone 100 mg PO HS PRN 08/13/18 07/16/19 History Combivent Respimat 1 puffs INH QID #4 gm 11/28/18 07/16/19 Rx albuterol sulfate 2 puff INH Q6H PRN 07/16/19 07/16/19 History Past Med/Surg History Medical History Alcohol withdrawal syndrome (Acute) Alcoholic hepatitis (Chronic) Ascites (Acute) Asthma (Chronic) Constipation (Acute) COPD (chronic obstructive pulmonary disease) (Chronic) Depression Emphysema of lung ETOH abuse (Resolved 08/17/13) Jaundice (Acute) Left lower lobe pneumonia Leukocytosis (Acute 04/21/14) Liver failure, acute (04/21/14) Parapneumonic effusion Pneumonia Sepsis due to Streptococcus pneumoniae Tachycardia (Acute 08/17/13) Surgical History S/P removal of ovarian cyst Family History Father Hypertension Myocardial infarction Social History Preferred Language: Serbian Communication Ability: Effective Youth Nutritional Monitor Required: No Beliefs That Will Affect Care: None marital status: Current Living Situation: Spouse Feels Safe at Home: Yes Smoking Status: Current every day smoker Tobacco Type: cigarettes ; Cigarettes Per Day: 20 ; Second Hand Exposure: Yes ; Tobacco Cessation Education Requested by Patient: No Hx Alcohol Use: Yes Alcohol type: hard liquor Alcohol Intake Frequency Comment: 500 ml a day Hx Substance Use: No Review of Systems Review of Systems: The patient denies chest pain, palpitations, lower extremity swelling, sore throat, fevers, chills, sweats, fatigue, nausea, vomiting, diarrhea , constipation, abdominal pain, pelvic pain, blood in urine or stool, dysuria, urinary frequency or urgency, loss of consciousness, rash, abnormal bruising or bleeding, imbalance, focal or generalized weakness, numbness or tingling in arms or legs, generalized arthralgias or myalgias, back or neck pain, or night sweats. The review of systems is otherwise negative other than for that already noted above, and at least 10 systems have been reviewed. Physical Exam Physical Exam: The patient is awake, alert and oriented 3, normocephalic and atraumatic, lying in bed and in no acute distress. HEENT--PERRL, EOMI, mucous membranes and oropharynx dry. Neck--supple. No JVD. No bruits. Thyroid normal, trachea midline, no adenopathy. Heart--normal S1 and S2. No murmurs, rubs or gallops. Lungs--coarse breath sounds with wheezes bilaterally. No respiratory distress, no accessory muscle use. Abdomen--normal bowel sounds and soft. Nontender. Nondistended. Extremities--no cyanosis or clubbing. No edema. There are good distal pulses b/l. Dermatologic--normal skin turgor, normal color, no abnormal lymph nodes, no rash. Neurologic--cranial nerves II through XII grossly intact. Rheumatologic--normal range of motion. Psychiatric--normal affect. Results & Data Vital Signs (Past 12 Hours) Vital Signs Temp Pulse Pulse Resp BP BP Pulse Ox 07/16/19 22:23 110 H 20 108/60 91 07/16/19 21:10 104 H 18 119/62 95 07/16/19 20:44 106 H 20 122/68 100 07/16/19 19:51 94 H 20 92 07/16/19 19:50 106 H 20 122/88 91 07/16/19 19:46 106 H 20 91 07/16/19 18:53 97.7 F 102 H 30 H 116/84 100 Laboratory Results Laboratory Results WBC 5.44 K/uL (4.8-10.8) 07/16/19 19: RBC 4.04 M/uL (4.2-5.4) L 07/16/19 19:26 Hgb 8.9 g/dL (12.0-16.0) L 07/16/19 19: Hct 31.9 % (37-47) L 07/16/19 19: MCV 79.0 fL (80-100) L 07/16/19 19: MCH 22.0 pg (25-34) L 07/16/19 19: MCHC 27.9 g/dL (32-36) L 07/16/19 19: RDW Std Deviation 52.0 fL (36.4-46.3) H 07/16/19 19: RDW Coeff of Don 18.0 % (11.5-14.5) H 07/16/19 19: Plt Count 220 K/uL (130-400) 07/16/19 19: MPV 9.4 fL (7.4-10.4) 07/16/19: Immature Gran % (Auto) 0.2 % 07/16/19 19: Neut % (Auto) 53.8 % 07/16/19 19: Lymph % (Auto) 34.2 % 07/16/19 19: Newton % (Auto) 9.9 % 07/16/19: Eos % (Auto) 1.3 % 07/16/19: Baso % (Auto) 0.6 % 07/16/19: Immature Gran # (Auto) 0.01 K/uL (0.00-0.02) 07/16/19: Neut # (Auto) 2.93 K/uL (1.4-6.5) 07/16/19: Lymph # (Auto) 1.86 K/uL (1.2-3.4) 07/16/19: Newton # (Auto) 0.54 K/uL (0.11-0.59) 07/16/19: Eos # (Auto) 0.07 K/uL (0-0.5) 07/16/19: Baso # (Auto) 0.03 K/uL (0-0.2) 07/16/19: PT 9.6 Seconds (9.0-12.0) 07/16/19: INR 0.9 (0.9-1.1) 07/16/19: APTT 22.5 Seconds (21.0-31.0) 07/16/19: PTT Ratio 0.8 07/16/19: VBG pH 7.42 (7.36-7.41) H 07/16/19: VBG pCO2 51 mmHg (38-50) H 07/16/19: VBG pO2 44 mmHg 07/16/19: VBG HCO3 32 mmol/L 07/16/19: VBG O2 Saturation 75.0 % 07/16/19: VBG Base Excess 6.9 mEq/L 07/16/19: Barometric Pressure 731.4 mm/Hg 07/16/19: Sodium 138 mmol/L (136-145) 07/16/19:26 Potassium 3.5 mmol/L (3.5-5.1) 07/16/19 19:26 Chloride 98 mmol/L (98-107) 07/16/19 19:26 Carbon Dioxide 30 mmol/L (21-32) 07/16/19 19:26 Anion Gap 10.0 (3-11) 07/16/19 19:26 BUN 7 mg/dl (7-18) 07/16/19 19:26 Creatinine 0.55 mg/dl (0.6-1.2) L 07/16/19 19:26 Est Cr Clr Drug Dosing Not Reportable 07/16/19 19:26 Est GFR ( Amer) 118.2 07/16/19 19:26 Est GFR (Non-Af Amer) 101.9 07/16/19 19:26 BUN/Creatinine Ratio 12.7 (10-20) 07/16/19 19:26 Glucose 96 mg/dl (70-99) 07/16/19 19:26 Calcium 9.3 mg/dl (8.5-10.1) 07/16/19 19:26 Magnesium 1.7 mg/dl (1.8-2.4) L 07/16/19 19:26 Total Bilirubin 0.2 mg/dl (0.2-1) 07/16/19 19:26 AST 41 U/L (15-37) H 07/16/19 19:26 ALT 22 U/L (12-78) 07/16/19 19:26 Alkaline Phosphatase 153 U/L (45-117) H 07/16/19 19:26 Troponin I < 0.015 ng/ml (0-0.045) 07/16/19 19:26 Total Protein 7.9 gm/dl (6.4-8.2) 07/16/19 19:26 Albumin 3.5 gm/dl (3.4-5.0) 07/16/19 19:26 Globulin 4.4 gm/dl (2.5-4.0) H 07/16/19 19:26 Albumin/Globulin Ratio 0.8 (0.9-2) L 07/16/19 19:26 Ethyl Alcohol mg/dL 329.5 mg/dl (0-3) H 07/16/19 19:26 Influenza Type A (PCR) Neg for Influ A (Neg) 03/05/20 19:40 Influenza Type B (PCR) Neg for Influ B (Neg) 07/16/19 19:40 Diagnostic Findings [place], [place] [phone] XRay Report Patient: CHET ZAVALETA Date: 07/16/19 MR#: [id number] [facility] Acct ID:[id number]: Date: 1960City Zip: [place] [address] Age: 59Location: ED Sex: F Room/Bed: Att Phy:Diagnosis: ALCOHOL DETOX REQUEST, COPD Rajani Phy: Bentley Childs Jr, DOService Date: 07/16/19 Fam Phy:Interpreting Phy: Bk Lawrence Admit Phy: Ordering Phy: Bright Augustine D.O. cc: ~ XR chest 1V portable HISTORY: 59 years-old Female Dyspnea acute shortness of breath COMPARISON: Chest radiograph 03/31/2019, CTA chest 11/25/2018 TECHNIQUE: Portable AP view of the chest FINDINGS: Cardiomediastinal and hilar silhouettes are unchanged. Emphysema with chronic fibrotic changes. Scattered calcified granulomata redemonstrated. Reticular nodular densities of the left lung base redemonstrated with 8 mm nodular opacity. There is no pneumothorax, pleural effusion or overt pulmonary edema. Hiatal hernia. Bones of the chest appear grossly intact. IMPRESSION: 1. Mild reticular nodular opacities of the left lung base are unchanged suggestive of atelectasis/scarring with chronic pneumonitis considered less likely. 2. Emphysema. 3. Chronic granulomatous disease. 4. Hiatal hernia. ACT 112: Negative or not required by law. The above report was generated using voice recognition software. It may contain grammatical, syntax or spelling errors. Results electronically sent 07/16/2019 7:19 PM to: Bright Augustine DO Electronically signed by: Idris Lawrence M.D. 07/16/2019 7:19 PM Dictated: 07/16/191915 Transcribed: 07/16/191915 Code Status & VTE Plan Code Status Full code VTE Prophylaxis Plan VTE Prophylaxis will be ordered: Yes PG Care Time/CCT Total # of Minutes Spent Total Time Spent with Patient: Total time spent is greater than 50% in coordination of care (as documented) at patient's floor/unit and/or counseling patient: Coding Level of Care Code 88695 Initial Inpt Care Lvl 3 Diagnoses COPD exacerbation J44.1 Tobacco abuse Z72.0 Alcohol withdrawal syndrome F10.239 Depression F32.89 Depression Type: other depression Sleep disturbance G47.9 (1) Depression Depression Type: other depression Qualified Code(s): F32.89 - Other specified depressive episodes
[2019-07-16] MEDS ORDERED: PATIENT'S HEIGHT AND/OR WEIGHT NEEDED SCH (23:00)
[2019-07-17] MEDS: FOLIC ACID 1 MG TAB PO SCH ×2 (00:23→08:01)
[2019-07-17] MEDS: THIAMINE HCL 100 MG TAB PO SCH ×2 (00:23→08:01)
[2019-07-17] MEDS: NICOTINE 14 MG/24 HR PATCH TD SCH ×2 (01:32→08:00)
[2019-07-17] MEDS: TRAZODONE HCL 50 MG TAB PO PRN (01:46)
[2019-07-17] MEDS ORDERED: VANCOMYCIN TROUGH ONE (03:30)
[2019-07-17] MEDS: LORazepam 1 MG TAB PO PRN ×4 (05:40→20:09)
--- NOTE | 2019-07-17 06:52 | CT Scan Report ---
CT chest wo con CLINICAL HISTORY: 59 years-old Female presenting with abnormal CXR, tobacco use. TECHNIQUE: Multidetector CT imaging of the chest was performed without the use of intravenous contras t. IV contrast: None. One or more dose lowering techniques were used consistent with the principles o f ALARA (as low as reasonably achievable), including automatic exposure control, mA or kV adjustment to individual patient size, and/or use of iterative reconstruction. COMPARISON: 11/25/2018. CT DOSE (mGy.cm): The estimated cumulative dose is 229.19 mGy.cm. FINDINGS: [employer] topogram: Unremarkable. Soft tissues: Normal thyroid and thoracic inlet. No axillary, supraclavicular, or mediastinal lymphad enopathy. Evaluation of the fatou limited without intravenous contrast. Atherosclerosis of the aorta. Normal heart size. Trace aortic valve calcification. No pericardial or pleural effusion. Severe hepat ic steatosis. Moderate sliding type hiatal hernia. Lungs and airways: No pneumothorax. Layering secretions or debris in the mid to lower trachea and lef t mainstem bronchus. Trace central necrosis may be present diffusely as well as minimal bronchial wal l thickening. Scattered calcified granulomata. Cicatrizing atelectasis in the medial segment of the r ight middle lobe and lingula. Mild upper lobe predominant centrilobular emphysema. Pulmonary arteries are not significantly enlarged relative to adjacent bronchi. No interlobular septal thickening. No o ther focal infiltrate or nodule. Musculoskeletal: Degenerative changes of the spine. IMPRESSION: 1. Extensive secretions or debris in the mid to lower trachea and left mainstem bronchus. 2. No other evidence of acute intrathoracic pathology. 3. Emphysema and bronchitis, evidence of smoking related lung injury. 4. Evidence of old granulomatous disease. 5. Moderate hiatal hernia. ACT 112: Negative or not required by law. Results electronically sent 07/17/2019 6:50 AM to: Zev Mederos MD Electronically signed by: Akil Butcher M.D. 07/17/2019 6:50 AM
[2019-07-17] MEDS: NEPHROCAPS PO SCH (08:01)
[2019-07-17] MEDS: FERROUS SULFATE 325 MG TAB PO SCH ×2 (08:01→17:34)
[2019-07-17] MEDS: ENOXAPARIN INJ 40 MG/0.4 ML SYR SQ SCH (08:03)
[2019-07-17] MEDS ORDERED: NICOTINE 14 MG/24 HR PATCH TD SCH (09:00)
[2019-07-17] MEDS ORDERED: chlordiazePOXIDE ALCOHOL WITHDRAWL 25MG PO STA (10:32)
[2019-07-17] MEDS ORDERED: methylPREDNISolone 40 MG in SYRINGE 0 ML IV SCH (11:00)
[2019-07-17] MEDS ORDERED: chlordiazePOXIDE HCl 25 MG CAP PO SCH (12:00)
[2019-07-17] MEDS: ALBUT/IPRATROP 3MG/0.5MG NEB 3 ML VIAL NEB SCH ×3 (13:07→20:19)
[2019-07-17] MEDS: chlordiazePOXIDE HCl 25 MG CAP PO SCH ×2 (14:52→17:34)
--- NOTE | 2019-07-17 15:48 | Electrocardiogram Report ---
Test Reason : Blood Pressure : / mmHG Vent. Rate : 092 BPM Atrial Rate : 092 BPM P-R Int : 152 ms QRS Dur : 084 ms QT Int : 368 ms P-R-T Axes : 067 063 053 degrees QTc Int : 455 ms Normal sinus rhythm Nonspecific T wave abnormality Abnormal ECG When compared with ECG of 31-MAR-2019 11:18, No significant change was found Confirmed by Wilman De La Rosa ([id number]) on 07/17/2019 3:47:57 PM Referred By: REFERRED SELF Confirmed By:Wilman De La Rosa
--- NOTE | 2019-07-17 16:02 | Hospitalist Progress Note ---
Date of Service July 17, 2019 Assessment & Plan (1) COPD exacerbation: - Mild - possibly some from bronchitis/smoking - but also anxious/concern for withdrawal - H/O parapneumonic effusion/sepsis from strep pneumoniae - Reports she has been using 2 L NC at baseline - was requiring 3 L in ED but currently back at baseline - can wean as tolerated - CT - extensive secretions or debris in mid to lower trachea/left mainstem bronchus; emphysema and bronchitis; old granulomatous disease; moderate hiatal hernia - Appears on previous CT scans there were secretions in the bronchus as well - but remains afebrile and no leukocytosis - but also given hiatal hernia could be at risk for aspiration -- CT also mentions trace central necrosis may be present? review of abd/pelvis CT from Aug 2018 suggested possible necrotizing pneumonia then - similar findings? will discuss with Pulm - Will implement Prednisone 40 mg daily and monitor; hold on antibiotics at this current time; Duonebs YASMANI and PRN - She states she tried to [facility] after a previous hospital stay but wasn't able to get an appointment - would benefit from establishment (2) Alcohol withdrawal syndrome: - H/O Alcoholic hepatitis/cirrhosis - CT shows mild hepatic cirrhosis in August 2018 - AWSS protocol; No history of withdrawal seizure per patient report; last drink was prior to coming to the hospital; ETOH level 329 on arrival - Tremors/anxiety noted; mentation is appropriate; mildly tachy - Librium taper and monitor; Folic acid/thiamine supplementation - Appreciate case management assistance in rehab options; limitations due to insurance and O2 needs -- She does see a weekly counselor (3) Tobacco abuse: - Continue to encourage cessation; Nicotine patch (4) Depression: - Depression/sleep disturbance- - Continue trazodone 100 mg HS PRN Admission and Anticipated Discharge Date Admission Date: July 16, 2019 Subjective Reports feeling okay today. Just having a lot of tremors and anxiety. She feels that her breathing is doing okay and that she normally utilizes about 2 L O2 continuously. She states she is trying to quit drinking but having difficulty finding a place because of her oxygen. Review of previous admissions for detox and seems Librium helped the most. Will institute with PRN Ativan if needed. She denies H/O withdrawal seizure. Will de-escalate steroids and try to taper quickly given this can add to tremors/anxiety. Review of Systems Constitutional: no fever and no chills Ear, Nose, Mouth, Throat: no sore throat and no dysphagia Respiratory: + cough; no dyspnea Cardiovascular: no chest pain, no palpitations and no lightheadedness Gastrointestinal: no abdominal pain, no nausea, no vomiting, no constipation and no diarrhea/loose stools Genitourinary: no dysuria Integumentary: no rash Neurologic: + tremor(s) Psychiatric: + anxiety Physical Exam Constitutional: no acute distress and no altered mental status Eyes: + anicteric sclerae ENMT: Ears: no hearing impairment Neck: trachea midline Respiratory: normal respiratory effort Auscultation: + diminished lung sounds Cardiovascular: Rate/Rhythm: regular rate and + tachycardic Heart Sounds: no murmur Vessels: no JVD Extremities: no edema Gastrointestinal (Abdomen): Inspection/Auscultation: normal bowel sounds Percussion/Palpation: abdomen soft; abdomen nontender Musculoskeletal: Head/Neck/Chest: normocephalic and head atraumatic Skin: no rashes, warm and dry Neurologic: moves all extremities Motor/Sensory: + tremor Psychiatric: Orientation: alert and oriented x 3 Motor Behavior: + tremor Affect: + anxious affect Results & Data ([facility]) Vital Signs (Past 12 Hours) Vital Signs Temp Pulse Pulse Resp BP BP Pulse Ox 07/17/19 15:55 106 H 07/17/19 15:31 37.4 C 78 19 132/80 97 07/17/19 15:01 79 20 96 07/17/19 13:07 106 H 18 96 07/17/19 11:22 37.0 C 111 H 20 139/83 99 07/17/19 07:37 37.3 C 103 H 20 111/69 93 07/17/19 07:07 86 07/17/19 04:05 37 C 111 H 18 108/63 93 PG Care Time/CCT Total # of Minutes Spent Total Time Spent with Patient: Total time spent is greater than 50% in coordination of care (as documented) at patient's floor/unit and/or counseling patient: Coding Level of Care Code 78218 Subseq Hosp Care Lvl 3 Diagnoses COPD exacerbation J44.1 Alcohol withdrawal syndrome F10.239 Tobacco abuse Z72.0 Depression F32.89 Depression Type: other depression (1) Depression Depression Type: other depression Qualified Code(s): F32.89 - Other specified depressive episodes
[2019-07-17] MEDS ORDERED: VANCOMYCIN CONSULT ACTIVE PRN (18:31)
[2019-07-17] MEDS ORDERED: VANCOMYCIN HCL 1,500 MG in SODIUM CHLORIDE 0.9% 500 ML IV ONE (19:00)
--- NOTE | 2019-07-17 19:32 | Pharmacy Report ---
Pharmacy Abx Initial Consult - Date of Service July 17, 2019 - Pharmacy Dosing Scope Date of Consult: 07/17/19 Consultation requested by: Tierra Iniguez PA-C Pharmacy is consulted to initiate vancomycin IV dosing therapy, order appropriate labs and adjust drug dose/frequency. - Subjective The patient is a 59 year old F admitted on 07/16/19 22:06. - Objective Height: 5 ft Weight: 62.3 kg Vital Signs (Past 12hrs): Vital Signs Temp Pulse Pulse Resp BP Pulse Ox 07/17/19 17:19 37.4 C 113 H 18 128/70 93 07/17/19 15:55 106 H 07/17/19 15:31 37.4 C 78 19 132/80 97 07/17/19 15:01 79 20 96 07/17/19 13:07 106 H 18 96 07/17/19 11:22 37.0 C 111 H 20 139/83 99 07/17/19 07:37 37.3 C 103 H 20 111/69 93 Lab Results (24hrs): Laboratory Tests (24 Hours) 07/16/19 07/16/19 19:26 19:26 WBC 5.44 Neut # (Auto) 2.93 Creatinine 0.55 L Est Cr Clr Drug Dosing Not Reportable Micro Results: 07/16/19 19:30 Aerobic Blood Culture - Pending Blood 07/16/19 19:26 Aerobic Blood Culture - Pending Blood Anaerobic Blood Culture - Pending - Assessment & Plan Assessment 59 year old F ordered empiric vancomycin for 1 of 2 positive blood cultures (gram positive cocci - probable skin contaminant, but will cover with antibiotics for now). Currently receiving treatment for COPD exacerbation with history of possible necrotizing pneumonia in August 2018. Patient currently afebrile, WBC of 5.4, SCr: 0.55 mg/dL. Will follow renal function and vital signs Plan Vancomycin for treatment of possible bacteremia (unknown source) Vancomycin IV * Estimated PK Parameters: Vd 0.7 L/kg, Jaret 0.079 hr-1, t1/2 8.8 hr * Loading dose: 1500 mg (24 mg/kg) * Maintenance dose: 750 mg IV (12 mg/kg) every 8 hours * Goal trough level empirically : 15 to 20 mcg/mL * Trough level ordered for 07/19/19 Pharmacy will continue to follow and will adjust dose/frequency as necessary. Thank you.
[2019-07-18] MEDS: chlordiazePOXIDE HCl 25 MG CAP PO SCH ×4 (02:03→21:15)
[2019-07-18] MEDS ORDERED: VANCOMYCIN HCL 750 MG in SODIUM CHLORIDE 0.9% 250 ML IV SCH (03:00)
[2019-07-18] MEDS: VANCOMYCIN HCL 750 MG in SODIUM CHLORIDE 0.9% 250 ML IV SCH ×3 (03:43→20:21)
[2019-07-18] MEDS: ALBUT/IPRATROP 3MG/0.5MG NEB 3 ML VIAL NEB SCH ×4 (07:27→19:13)
[2019-07-18] MEDS: THIAMINE HCL 100 MG TAB PO SCH (07:46)
[2019-07-18] MEDS: FOLIC ACID 1 MG TAB PO SCH (07:46)
[2019-07-18] MEDS: NEPHROCAPS PO SCH (07:47)
[2019-07-18] MEDS: PANTOprazole 40 MG TAB PO SCH (07:47)
[2019-07-18] MEDS: NICOTINE 14 MG/24 HR PATCH TD SCH (07:48)
[2019-07-18] MEDS: ENOXAPARIN INJ 40 MG/0.4 ML SYR SQ SCH (07:49)
[2019-07-18] MEDS: FERROUS SULFATE 325 MG TAB PO SCH ×2 (08:18→17:38)
[2019-07-18] MEDS ORDERED: predniSONE 20 MG TAB PO SCH (09:00)
[2019-07-18 09:38] LABS: Creatinine Clr Calc Pharmacy 69.6 ml/min; Est GFR (African American) 107.3; Est GFR (Non-African American) 92.6
[2019-07-18] MEDS ORDERED: LORazepam 0.5 MG TAB PO STA (10:59)
--- NOTE | 2019-07-18 16:17 | Hospitalist Progress Note ---
Date of Service July 18, 2019 Assessment & Plan (1) COPD exacerbation: - Mild - possibly some from bronchitis/smoking - but also anxious/concern for withdrawal - H/O parapneumonic effusion/sepsis from strep pneumoniae - Reports she has been using 2 L NC at baseline - was requiring 3 L in ED but currently back at baseline - can wean as tolerated/has had moments without O2 but mostly needing it when exerting or anxious - CT - extensive secretions or debris in mid to lower trachea/left mainstem bronchus; emphysema and bronchitis; old granulomatous disease; moderate hiatal hernia -- Appears on previous CT scans there were secretions in the bronchus as well - but remains afebrile and no leukocytosis - but also given hiatal hernia could be at risk for aspiration -- CT also mentions trace central necrosis may be present? review of abd/pelvis CT from Aug 2018 suggested possible necrotizing pneumonia then - similar findings? discussed with pulm and feels this can be monitored without active treatment - Prednisone 20 mg daily and monitor; hold on antibiotics at this current time; Duonebs YASMANI and PRN - She states she tried to [facility] after a previous hospital stay but wasn't able to get an appointment - would benefit from establishment (2) Alcohol withdrawal syndrome: - H/O Alcoholic hepatitis/cirrhosis - CT shows mild hepatic cirrhosis in August 2018 - AWSS protocol; No history of withdrawal seizure per patient report; last drink was prior to coming to the hospital; ETOH level 329 on arrival - Tremors/anxiety noted; mentation is appropriate; mildly tachy - Librium taper and monitor; Folic acid/thiamine supplementation - Appreciate case management assistance in rehab options; limitations due to insurance and O2 needs -- She does see a weekly counselor (3) Positive blood culture: - Suspect skin contamination - coag neg staph; awaiting gram pos bacilli identification - Will cover with empiric Vanc but low suspicion for true infection; new BCx are pending (4) Tobacco abuse: - Continue to encourage cessation; Nicotine patch - will increase dosing (5) Depression: - Depression/sleep disturbance- - Continue trazodone 100 mg HS PRN Admission and Anticipated Discharge Date Admission Date: July 16, 2019 Subjective Visited on a couple occasions today. Was more anxious and tearful this morning but seemed to improve later in the morning/early afternoon. Discussed with at bedside with patient permission. Will continue librium taper. Can use PRN Ativan as needed. Mentation continues to be stable. She does verbalize some anxiety from not being able to smoke and drink which is a lot to quit at once. She has been ambulating the halls with her and she states that helps to keep her mind occupied. Review of Systems Constitutional: no fever and no chills Respiratory: + cough; no dyspnea States she only gets SOB when anxious Cardiovascular: no chest pain, no palpitations and no lightheadedness Gastrointestinal: no abdominal pain, no nausea, no vomiting, no constipation and no diarrhea/loose stools Genitourinary: no dysuria Integumentary: no rash Neurologic: + tremor(s) Psychiatric: + anxiety and + substance abuse; no hallucinations Physical Exam Constitutional: no acute distress and no altered mental status Eyes: + anicteric sclerae ENMT: Ears: no hearing impairment Neck: trachea midline Respiratory: normal respiratory effort Auscultation: + diminished lung sounds Cardiovascular: Rate/Rhythm: regular rate and + tachycardic Heart Sounds: no murmur Vessels: no JVD Extremities: no edema Gastrointestinal (Abdomen): Inspection/Auscultation: normal bowel sounds Percussion/Palpation: abdomen soft; abdomen nontender Musculoskeletal: Head/Neck/Chest: normocephalic and head atraumatic Skin: no rashes, warm and dry Neurologic: moves all extremities Motor/Sensory: + tremor Psychiatric: Orientation: alert and oriented x 3 Motor Behavior: + tremor Affect: + anxious affect Results & Data ([facility]) Vital Signs (Past 12 Hours) Vital Signs Temp Pulse Pulse Resp BP Pulse Ox 07/18/19 15:28 37.1 C 103 H 20 144/81 H 97 07/18/19 15:24 97 H 16 99 07/18/19 14:53 110 H 07/18/19 11:49 36.8 C 96 H 18 111/68 96 07/18/19 11:30 103 H 22 95 07/18/19 10:22 75 07/18/19 08:00 36.8 C 87 18 99/63 L 95 07/18/19 07:27 83 18 94 07/18/19 04:13 36.8 C 20 115/69 90 PG Care Time/CCT Total # of Minutes Spent Total Time Spent with Patient: Total time spent is greater than 50% in coordination of care (as documented) at patient's floor/unit and/or counseling patient: Coding Level of Care Code 04852 Subseq Hosp Care Lvl 3 Diagnoses COPD exacerbation J44.1 Alcohol withdrawal syndrome F10.239 Positive blood culture R78.81 Tobacco abuse Z72.0 Depression F32.89 Depression Type: other depression (1) Depression Depression Type: other depression Qualified Code(s): F32.89 - Other specified depressive episodes
[2019-07-18] MEDS: LORazepam 0.5 MG TAB PO PRN (18:28)
[2019-07-18] MEDS: TRAZODONE HCL 50 MG TAB PO PRN (22:34)
[2019-07-19] MEDS ORDERED: VANCOMYCIN TROUGH ONE ×2 (03:30→04:30)
[2019-07-19 03:53] LABS: Creatinine Clr Calc Pharmacy 70.6 ml/min; Est GFR (African American) 109.1; Est GFR (Non-African American) 94.2
[2019-07-19] MEDS: VANCOMYCIN HCL 750 MG in SODIUM CHLORIDE 0.9% 250 ML IV SCH (04:00)
[2019-07-19] MEDS ORDERED: COUGH DROP (SUGAR FREE) LOZ 24 LOZ/1 BOX BUCCAL ONE (04:15)
[2019-07-19] MEDS: LORazepam 0.5 MG TAB PO PRN ×2 (04:17→13:02)
[2019-07-19] MEDS: chlordiazePOXIDE HCl 25 MG CAP PO SCH (06:32)
[2019-07-19] MEDS: ALBUT/IPRATROP 3MG/0.5MG NEB 3 ML VIAL NEB SCH ×3 (07:26→15:10)
[2019-07-19] MEDS: NEPHROCAPS PO SCH (08:42)
[2019-07-19] MEDS: THIAMINE HCL 100 MG TAB PO SCH (08:42)
[2019-07-19] MEDS: FOLIC ACID 1 MG TAB PO SCH (08:42)
[2019-07-19] MEDS: FERROUS SULFATE 325 MG TAB PO SCH (08:43)
[2019-07-19] MEDS: ENOXAPARIN INJ 40 MG/0.4 ML SYR SQ SCH (08:43)
[2019-07-19] MEDS: PANTOprazole 40 MG TAB PO SCH (08:43)
[2019-07-19] MEDS ORDERED: predniSONE 20 MG TAB PO SCH (09:00)
[2019-07-19] MEDS ORDERED: NICOTINE 21 MG/24 HR TDSY TD SCH (09:00)
--- NOTE | 2019-07-19 16:28 | Discharge Summary ---
Date of Service July 19, 2019 Admission HPI Per Admitting Provider Patient is a 59-year-old female with a past medical history including COPD, alcohol dependence, alcohol withdrawal, ascites, parapneumonic effusion, sepsis due to strep pneumoniae, depression, ADHD, sepsis, left lower lobe pneumonia, jaundice, alcohol abuse, alcoholic hepatitis and bronchitis. She presents to the emergency department with worsening shortness of breath over the past 4 days, which she notes is aggravated by her tobacco use, and her recent resumption of alcohol use. She is concerned about her alcohol use, and is afraid to go through withdrawal. Principal Diagnosis Mild COPD Exacerbation; Alcohol Withdrawal; Anxiety Discharge Exam Constitutional no acute distress and no altered mental status Eyes + anicteric sclerae ENMT Ears: no hearing impairment Neck trachea midline Respiratory normal respiratory effort Auscultation: + diminished lung sounds Cardiovascular Rate/Rhythm: regular rate and regular rhythm Heart Sounds: no murmur Vessels: no JVD Extremities: no edema Gastrointestinal (Abdomen) Inspection/Auscultation: normal bowel sounds Percussion/Palpation: abdomen soft; abdomen nontender Musculoskeletal Head/Neck/Chest: normocephalic and head atraumatic Skin no rashes, warm and dry Neurologic moves all extremities Motor/Sensory: + tremor (reducing) Psychiatric Orientation: alert and oriented x 3 Motor Behavior: + tremor Affect: + anxious affect Discharge Data Allergies Allergy/AdvReac Type Severity Reaction Status Date / Time RACIEL Inhibitors AdvReac Mild COUGH Verified 07/16/19 20:39 naltrexone [From Vivitrol] AdvReac Hair Verified 07/16/19 20:39 loss/ingrown hairs over body Consultations 07/16/19 20:59 ED Decision to Admit Stat 07/16/19 22:39 Consult Case Management - Discharge Planning Routine Ordered Studies 07/16/19 22:39 CT chest wo con Urgent Hospital Course (1) COPD exacerbation: - Mild - possibly some from bronchitis/smoking - but also anxious/concern for withdrawal - H/O parapneumonic effusion/sepsis from strep pneumoniae - Reports she has been using 2 L NC at baseline at home - was requiring 3 L in ED but currently back at baseline - can wean as tolerated/has had moments without O2 but mostly needing it when exerting or anxious but no actual documented desaturations - CT - extensive secretions or debris in mid to lower trachea/left mainstem bronchus; emphysema and bronchitis; old granulomatous disease; moderate hiatal hernia -- Appears on previous CT scans there were secretions in the bronchus as well - but remains afebrile and no leukocytosis - but also given hiatal hernia could be at risk for aspiration -- CT also mentions trace central necrosis may be present? review of abd/pelvis CT from Aug 2018 suggested possible necrotizing pneumonia then - similar findings? discussed with pulm and feels this can be monitored without active treatment - Prednisone 20 mg daily x 2 more days; hold on antibiotics at this current time - She states she tried to F/U with [facility] after a previous hospital stay but wasn't able to get an appointment - would benefit from establishment - Suspect her SOB was more acutely related to anxiety (2) Alcohol withdrawal syndrome: - H/O Alcoholic hepatitis/cirrhosis - CT shows mild hepatic cirrhosis in August 2018 - AWSS protocol ordered; No history of withdrawal seizure per patient report; last drink was prior to coming to the hospital; ETOH level 329 on arrival - Tremors/anxiety noted but improved today; mentation is appropriate; mildly tachy but HRs improving - Folic acid/thiamine supplementation; Utilized Librium taper and will complete a 7 day taper -- is a non-drinker and supportive and this was discussed with him - Appreciate case management assistance in rehab options; limitations due to insurance and O2 needs? -- She does see a weekly counselor - Patient and family will continue to seek treatment options - Rx given for Thiamine and Folic acid supplementation (3) Positive blood culture: - Coag neg staph and Cornebacterium - suspect skin contamination as this one 1 of 2; did obtain a new set which again 1 of 2 with gram + cocci - Covered with Vanc empircally when first obtained - afebrile and no leukocystosis; Skin looks well and no obvious concerning infectious findings - Do suspect this is skin contamination but did advise verbally and in writing signs and symptoms to monitor for and to come back if this would be an issue (4) Tobacco abuse: - Continue to encourage cessation; Nicotine patch used in house - Discussed with her whether to send her with a patch - she feels that she will likely smoke when she goes home -- Given her presentation and her anxiety expressed by quitting both it may be more successful to focus on when and slowly tapering the other. Of course it was discussed that cessation of both are important however it may ultimately be too bothersome resulting in failure quitting either substance -- Recommend to continue abstaining from alcohol; advised to try to cut down each day on cigarette use and avoid places/activities that she associates with smoking (5) Depression: - Depression/sleep disturbance- - Continue trazodone 100 mg HS PRN (6) Hiatal hernia: - Found on imaging - Discussed with patient as she does endorse reflux issues - granted with alcohol use this is not helping. Also discussed how this plays a role in sphincter relaxation. Especially if drinking she would be at higher risk of aspiration - Rx given for Protonix 40 mg daily and advised to sit upright for meals and at least 30 minutes after meals. Total Time Total Time Spent Total Time Spent (In Minutes): Greater than 30 minutes Discharge Plan Discharge Items Patient Disposition: Home - Self-Care Reason For Visit: COPD EXACERBATION,ALCOHOL WITHDRAWAL Discharge Diagnosis: COPD Exacerbation and Alcohol Withdrawal Activity: Resume your previous activity Non-emergency contact: Primary Care Provider Call non-emergency contact if: you have any medication questions and your symptoms worsen Follow-up/Referrals: Bentley Childs Jr, DO [Primary Care Provider] - Diet: Regular Addtl Attending Provider Instructions: COPD Exacerbation: - This seems rather mild and may have more been caused by anxiety. It seems when you are calm your breathing is better and your oxygen levels stay well. - Recommend to continue your oxygen checks at home and maybe if you are more relaxed at home that will allow you to be off oxygen even longer. - Will finish out a couple more days of a steroid to make sure the bronchitis is taken care of - you had a dose today so you can start this tomorrow -- Prednisone 20 mg x 2 more days - Continue your inhalers. Alcohol Withdrawal: - Recommend to stay away from alcohol. This can be difficult to do but you can do it. You have a very supportive spouse and a counselor that can help. - Keep doing your part on trying to get into a rehab. We can discuss with case management on saturday to have a follow-up call to see if there is anything we can help arrange. Also talk with your family doctor about this as well. - Will continue to taper down on Librium to help with feelings of alcohol withdrawal. It is important to not drink alcohol when taking this medication as it can be life threatening due to sedation (sleepiness) and affects on your breathing Blood Culture: - Your blood culture is growing two skin bacteria. This is only in one blood culture. We did treat you with some antibiotics temporarily but again this is skin organisms. - No other signs of infection noted. Just keep an eye out for fevers, chills, or feeling like your getting sick. If you do please get evaluated. As well, it is flu time and other respiratory illnesses are going around so if you feel like you are getting worse, please see a doctor. Tobacco Use: - Recommend ultimately to quit smoking. As we discussed today it may be hard to quit drinking and smoking at the same time. If you feel you can do it that is great, if not the best approach to try try and cut down. - Maybe jot down how many cigarettes you have and then try the next day to have one or two less. Distraction can help so try and keep busy and avoid the typical things that would make you want to have a cigarrette. Again like anything quitting is hard but you can definitely do it. Anxiety: - Some of your anxiety may be from alcohol or not having cigarettes. However, you may benefit from medications to help reduce your anxiety. - The best approach is actually using anti-depressants as they can also reduce your anxiety. These medications take a few weeks to work and sometimes you have to try a couple different ones to see what works for you. However, it is important to not be drinking if you would go onto these medications. Given that they also take time and need monitoring, it may be best to discuss with your family doctor on which one to use or what the best approach may be for you. You may even benefit from getting established with a psychiatrist to help get a good plan in place. Hiatal Hernia/Reflux - You have a hiatal hernia on imaging. This is when the stomach pushes up into the lung areas and can cause a lot of reflux or heartburn. It can also put you at risk for stomach acids to come up and possibly aspirate (inhale the contents into the lungs). - Recommend to take a daily acid reducing medication to reduce the amount of stomach acid. - Also recommend to sit up for all meals and to remain in an upright position f or at least 30 minutes after meals to prevent reflux issues. - Ultimately the only way to fix a hiatal hernia is surgery but that is quite extensive and its avoided when possible. Pending Studies at Discharge: No Stand-Alone Forms: [facility], Smoking Cessation, Suicide Prevention Resources Medications and DC Order Prescriptions: New prednisone 20 mg Tablet 20 mg PO DAILY 2 Days Qty: 2 RF: 0 thiamine HCl (vitamin B1) [Vitamin B-1] 100 mg Tablet 100 mg PO QAM 30 Days Qty: 30 RF: 0 pantoprazole 40 mg Tablet,Delayed Release (Dr/Ec) 40 mg PO QAM 30 Days Qty: 30 RF: 0 folic acid 1 mg Tablet 1 mg PO QAM 30 Days Qty: 30 RF: 0 chlordiazepoxide HCl 5 mg capsule 5 mg PO UD Qty: 18 RF: 0 Continued trazodone 100 mg tablet 100 mg PO HS PRN (Reason: Sleep) RF: 0 budesonide-formoterol [Symbicort] 80-4.5 mcg/actuation Hfa Aerosol Inhaler 2 puff INHALATION BID RF: 0 Combivent Respimat 20-100 mcg/actuation mist 1 puffs INH QID Qty: 4 RF: 3 albuterol sulfate 90 mcg/actuation HFA aerosol inhaler 2 puff INH Q6H PRN (Reason: Shortness Of Breath Or Wheezing) RF: 0 Discharge Orders: Discharge Order (Routine); Ordered 07/19/19 Ordered By: Tierra Iniguez Admission Data Admit Date/Time: 07/16/19 22:06 Attending Provider: Dann Sanchez Admit Provider: Zev Mederos Primary Care Provider: Bentley Childs Jr Other Providers: Zev Mederos Other Interventions: Discharge Summary Assessment (RN) Last Done: 07/19/19 15:15 DC Date/Time DO NOT enter until pt leaves facility: 07/19/19 16:02 Supervising Physician Co-Signing Physician Notes Attending note: patient seen and examined with Tierra Iniguez PA-C. I agree with her discharge summary. I personally reviewed the labs and imaging findings. patient is breathing better, says she is ready to go home, can't stay here a minute longer she is eating okay, thinks she'll eat better at home minimal cough, non-productive on her home level of oxygen she is requesting to be on the Librium for a taper on discharge, helps her anxiety incredibly - COPD exacerbation: resolved, d/c on a few more days of Prednisone, no antibiotics indicated - Alcohol withdrawal, anxiety will d/c on Librium taper over 7 days she is committed to not drinking, no interest in alcohol rehab, they won't accept her anyway due to oxygen needs Coding Level of Care Code D/C Day Management >30 mins Diagnoses COPD exacerbation J44.1 Alcohol withdrawal syndrome F10.239 Positive blood culture R78.81 Tobacco abuse Z72.0 Depression F32.89 Depression Type: other depression Hiatal hernia K44.9
[2019-07-20] MEDS ORDERED: chlordiazePOXIDE HCl 5 MG CAP PO SCH (18:00)
== END 2019-07-19 16:02 | disposition home or self-care (01) | DRG 191 ==
LOC: ED 18:49 → 2W 22:06 → SUATTDRO 22:06 → 2W 22:23

== ENCOUNTER 2019-11-22 18:31 | Inpatient (IN) ==
[~2019-11-22 18:31] MED LIST changes: -ADVIN25/60 INH; -AMT25 PO; -CLON1TAB PO; -ERGO50002 PO; -FLV1 PO; -LXP/20 PO; -NALT50TA16 PO; -NCDT21 EXT; -SNG10 PO; -SPIR25TA89 PO; +SUCCINYLCHOLINE CHLORIDE 20 MG/ML 10 ML VIAL IV ONE; -THIA100T14 PO; -UMEC1INH PO; +VECURONIUM BROMIDE 10 MG VIAL IV ONE; -VST25HP PO
[2019-11-22] MEDS ORDERED: FOLIC ACID 1 MG in SYRINGE 9.8 ML IV STA (18:54)
[2019-11-22] MEDS ORDERED: THIAMINE HCL 100 MG in SYRINGE 9 ML IV STA (18:54)
--- NOTE | 2019-11-22 18:59 | Emergency Department Note ---
History of Present Illness General Chief complaint: Unresponsive Stated complaint: UNRESPONSIVE, IN THE MIDDLE OF DETOX Time Seen by Provider: 11/22/19 18:45 Source: patient and family Limitations: altered mental status History of Present Illness Provider complaint: Change in mental status Onset (ago): hour(s) Location: head Severity: severe Pain Consistency: + constant Maximum Pain Intensity: 7 Quality: + other (Confusion) Relieved By: + none Associated symptoms: + cough (Chronic cough) and + shortness of breath; no chest pain, no fever/chills, no headaches and no nausea/vomiting This is a 59-year-old female who presents with change in mental status. I did obtain history from the patient as well as her who is at the bedside. The patient has been trying to detox off of alcohol since November 12. She has been taking Librium which was prescribed by her PCP. Today she seemed very confused per her . She got up this morning and then sat down on a [place] basket where her found her confused. She had an O2 saturation of 87% on her regular oxygen although the states that she has trouble keeping it on. Her pulse was high at the time as well. He states that she did not fall or have any recent injury. She complains of pain to her legs where she has swelling. Her states that her swelling started 5 days ago. She had an ultrasound of the right leg the day after which showed no evidence of DVT. She was placed on spironolactone by her doctor. The patient denies any headache, chest pain or fever. She has had a chronic cough which is normal for her due to her COPD. She states that she has had intermittent abdominal pain. She is not vomiting. Home Medications Home Medications Medication Instructions Recorded Confirmed Type budesonide-formoterol [Symbicort] 2 puff INHALATION BID 08/13/18 11/22/19 His tory Combivent Respimat 1 puffs INH QID #4 gm 11/28/18 11/22/19 Rx ergocalciferol (vitamin D2) 50,000 unit PO MONTHLY 11/03/19 11/22/19 History prednisone 5 mg PO DAILY 11/03/19 11/22/19 History chlordiazepoxide HCl See Rx Instructions .ROUTE .COMPLEX 11/22/19 11/22/19 History clonidine 1 patch TOPICAL WK 11/22/19 11/22/19 History spironolactone 25 mg PO BID 11/22/19 11/22/19 History Allergies Allergy/AdvReac Type Severity Reaction Status Date / Time RACIEL Inhibitors AdvReac Mild COUGH Verified 07/16/19 20:39 naltrexone [From Vivitrol] AdvReac Hair Verified 07/16/19 20:39 loss/ingrown hairs over body Past Med/Surg History Medical History Alcohol withdrawal syndrome Alcoholic hepatitis (Chronic) Ascites (Acute) Asthma (Chronic) Constipation (Acute) COPD (chronic obstructive pulmonary disease) (Chronic) Depression Emphysema of lung ETOH abuse (Resolved 08/17/13) Jaundice (Acute) Left lower lobe pneumonia Leukocytosis (Acute 04/21/14) Liver failure, acute (04/21/14) Parapneumonic effusion Pneumonia Sepsis due to Streptococcus pneumoniae Tachycardia (Acute 08/17/13) Surgical History S/P removal of ovarian cyst Family History Father Hypertension Myocardial infarction Social History Preferred Language: Turkmen Communication Ability: Effective 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 and A total of 10 systems reviewed and were otherwise negative (Somewhat limited reliability due to altered mental status) Physical Exam Vital Signs Vital Signs - 24 hr 11/22/19 18:33 11/22/19 18:54 11/22/19 18:57 Temperature 37.1 C Temperature Source Oral Pulse Rate 101 H 96 H 102 H Pulse Rate from SpO2 Sensor 95 H 94 H Respiratory Rate 30 H 43 H 43 H Respiratory Effort / Characteristics Non-Labored Spontaneous Respiratory Depth Normal Respiratory Pattern Regular Blood Pressure 136/79 124/92 Blood Pressure Mean 98 103 Pulse Oximetry 92 93 93 Oxygen Delivery Method Nasal Cannula Oxygen Flow Rate 5 Fraction of Inspired Oxygen Sepsis Recent Fever Within 48 Hours No Sepsis New/Unexplained Change in Mental Status No Sepsis Action Taken by Nursing No Action Required End-Tidal CO2 11/22/19 19:00 11/22/19 19:03 11/22/19 19:05 Temperature Temperature Source Pulse Rate 107 H 100 H Pulse Rate from SpO2 Sensor 107 H 105 H Respiratory Rate 34 H 39 H Respiratory Effort / Characteristics Respiratory Depth Respiratory Pattern Blood Pressure 154/75 H Blood Pressure Mean 96 Pulse Oximetry 94 94 89 L Oxygen Delivery Method Nasal Cannula Oxygen Flow Rate 2 Fraction of Inspired Oxygen Sepsis Recent Fever Within 48 Hours Sepsis New/Unexplained Change in Mental Status Sepsis Action Taken by Nursing End-Tidal CO2 11/22/19 19:10 11/22/19 19:15 11/22/19 19:17 Temperature Temperature Source Pulse Rate 116 H 107 H 108 H Pulse Rate from SpO2 Sensor 110 H 109 H Respiratory Rate 39 H 41 H 41 H Respiratory Effort / Characteristics Respiratory Depth Respiratory Pattern Blood Pressure 186/105 H Blood Pressure Mean 129 Pulse Oximetry 83 L 97 Oxygen Delivery Method Oxygen Flow Rate Fraction of Inspired Oxygen Sepsis Recent Fever Within 48 Hours Sepsis New/Unexplained Change in Mental Status Sepsis Action Taken by Nursing End-Tidal CO2 11/22/19 19:20 11/22/19 19:25 11/22/19 19:26 Temperature Temperature Source Pulse Rate 102 H 95 H 105 H Pulse Rate from SpO2 Sensor 103 H 97 H 105 H Respiratory Rate 31 H 14 19 Respiratory Effort / Characteristics Respiratory Depth Respiratory Pattern Blood Pressure 189/131 H Blood Pressure Mean 147 Pulse Oximetry 100 99 96 Oxygen Delivery Method Oxygen Flow Rate Fraction of Inspired Oxygen Sepsis Recent Fever Within 48 Hours Sepsis New/Unexplained Change in Mental Status Sepsis Action Taken by Nursing End-Tidal CO2 11/22/19 19:30 11/22/19 19:31 11/22/19 19:35 Temperature Temperature Source Pulse Rate 99 H 97 H Pulse Rate from SpO2 Sensor 99 H 99 H 98 H Respiratory Rate 17 23 Respiratory Effort / Characteristics Respiratory Depth Respiratory Pattern Blood Pressure 157/85 H Blood Pressure Mean 126 Pulse Oximetry 100 100 97 Oxygen Delivery Method Oxygen Flow Rate Fraction of Inspired Oxygen Sepsis Recent Fever Within 48 Hours Sepsis New/Unexplained Change in Mental Status Sepsis Action Taken by Nursing End-Tidal CO2 76 11/22/19 19:36 11/22/19 19:53 11/22/19 19:55 Temperature Temperature Source Pulse Rate 99 H 93 H Pulse Rate from SpO2 Sensor 99 H 96 H 93 H Respiratory Rate Respiratory Effort / Characteristics Respiratory Depth Respiratory Pattern Blood Pressure 117/69 157/73 H Blood Pressure Mean 99 105 Pulse Oximetry 97 89 L 97 Oxygen Delivery Method Oxygen Flow Rate Fraction of Inspired Oxygen Sepsis Recent Fever Within 48 Hours Sepsis New/Unexplained Change in Mental Status Sepsis Action Taken by Nursing End-Tidal CO2 73 58 71 11/22/19 19:57 11/22/19 20:00 11/22/19 20:01 Temperature Temperature Source Pulse Rate 92 H 90 Pulse Rate from SpO2 Sensor 92 H 91 H Respiratory Rate Respiratory Effort / Characteristics Respiratory Depth Respiratory Pattern Blood Pressure 136/87 Blood Pressure Mean 114 Pulse Oximetry 97 94 96 Oxygen Delivery Method Mechanical Vent Oxygen Flow Rate Fraction of Inspired Oxygen Sepsis Recent Fever Within 48 Hours Sepsis New/Unexplained Change in Mental Status Sepsis Action Taken by Nursing End-Tidal CO2 71 71 11/22/19 20:05 11/22/19 20:10 11/22/19 20:15 Temperature Temperature Source Pulse Rate 92 H 92 H 93 H Pulse Rate from SpO2 Sensor 92 H 92 H 93 H Respiratory Rate Respiratory Effort / Characteristics Respiratory Depth Respiratory Pattern Blood Pressure 170/97 H Blood Pressure Mean 115 Pulse Oximetry 97 97 97 Oxygen Delivery Method Oxygen Flow Rate Fraction of Inspired Oxygen Sepsis Recent Fever Within 48 Hours Sepsis New/Unexplained Change in Mental Status Sepsis Action Taken by Nursing End-Tidal CO2 62 57 57 11/22/19 20:16 11/22/19 20:20 11/22/19 20:25 Temperature Temperature Source Pulse Rate 91 H 88 88 Pulse Rate from SpO2 Sensor 91 H 89 87 Respiratory Rate Respiratory Effort / Characteristics Respiratory Depth Respiratory Pattern Blood Pressure Blood Pressure Mean Pulse Oximetry 96 94 87 L Oxygen Delivery Method Oxygen Flow Rate Fraction of Inspired Oxygen Sepsis Recent Fever Within 48 Hours Sepsis New/Unexplained Change in Mental Status Sepsis Action Taken by Nursing End-Tidal CO2 66 63 63 11/22/19 20:30 11/22/19 20:31 11/22/19 20:35 Temperature Temperature Source Pulse Rate 91 H 88 87 Pulse Rate from SpO2 Sensor 90 92 H Respiratory Rate Respiratory Effort / Characteristics Respiratory Depth Respiratory Pattern Blood Pressure 127/89 Blood Pressure Mean 109 Pulse Oximetry 93 92 Oxygen Delivery Method Oxygen Flow Rate Fraction of Inspired Oxygen 60 Sepsis Recent Fever Within 48 Hours Sepsis New/Unexplained Change in Mental Status Sepsis Action Taken by Nursing End-Tidal CO2 66 62 59 11/22/19 20:40 11/22/19 20:45 11/22/19 20:50 Temperature Temperature Source Pulse Rate 88 90 90 Pulse Rate from SpO2 Sensor 88 90 90 Respiratory Rate Respiratory Effort / Characteristics Respiratory Depth Respiratory Pattern Blood Pressure 133/92 Blood Pressure Mean 101 Pulse Oximetry 96 94 92 Oxygen Delivery Method Oxygen Flow Rate Fraction of Inspired Oxygen Sepsis Recent Fever Within 48 Hours Sepsis New/Unexplained Change in Mental Status Sepsis Action Taken by Nursing End-Tidal CO2 56 61 55 11/22/19 20:55 11/22/19 21:00 11/22/19 21:01 Temperature Temperature Source Pulse Rate 88 88 87 Pulse Rate from SpO2 Sensor 88 88 87 Respiratory Rate Respiratory Effort / Characteristics Respiratory Depth Respiratory Pattern Blood Pressure 104/77 Blood Pressure Mean 92 Pulse Oximetry 92 94 91 Oxygen Delivery Method Oxygen Flow Rate Fraction of Inspired Oxygen Sepsis Recent Fever Within 48 Hours Sepsis New/Unexplained Change in Mental Status Sepsis Action Taken by Nursing End-Tidal CO2 54 53 55 11/22/19 21:05 11/22/19 21:10 11/22/19 21:15 Temperature Temperature Source Pulse Rate 85 85 85 Pulse Rate from SpO2 Sensor 86 85 85 Respiratory Rate Respiratory Effort / Characteristics Respiratory Depth Respiratory Pattern Blood Pressure 88/66 L Blood Pressure Mean 72 Pulse Oximetry 92 92 92 Oxygen Delivery Method Oxygen Flow Rate Fraction of Inspired Oxygen Sepsis Recent Fever Within 48 Hours Sepsis New/Unexplained Change in Mental Status Sepsis Action Taken by Nursing End-Tidal CO2 49 50 48 11/22/19 21:20 Temperature Temperature Source Pulse Rate 83 Pulse Rate from SpO2 Sensor 83 Respiratory Rate Respiratory Effort / Characteristics Respiratory Depth Respiratory Pattern Blood Pressure Blood Pressure Mean Pulse Oximetry 92 Oxygen Delivery Method Oxygen Flow Rate Fraction of Inspired Oxygen Sepsis Recent Fever Within 48 Hours Sepsis New/Unexplained Change in Mental Status Sepsis Action Taken by Nursing End-Tidal CO2 50 The physical exam is limited due to the patient's condition. Constitutional: Vital signs reviewed. Eyes: Pupils are equal round reactive to light. Conjunctiva are noninjected. HENT: Normocephalic atraumatic. Mucous membranes are dry. Respiratory: Scattered rhonchi bilaterally. Breath sounds are equal bilaterally. Tachypneic. Cardiovascular: Regular rate and rhythm. No murmurs, rubs or gallops. GI: Soft, nondistended and nontender. Bowel sounds are present. Musculoskeletal: Bilateral lower extremity edema greater on the right side. Mild tenderness anteriorly to the ankles without erythema or increased warmth. Integumentary: No cyanosis. Neurological: The patient is somnolent but arousable. Speech is very slurred. She does follow commands and moves all extremities. Psychiatric: Unable to assess. Procedures Intubation Time out performed: Yes sedative: none paralytic: Succinylcholine Mg Given: 140 Laryngoscope: fiber optic video scope ET Tube Size: 8 ET Tube Uncuffed: No Tube Secured Depth (cm): 25 Tube Secured Location: lips Tube Placement Confirmation: visualized tube passing through cords, equal breath sounds bilaterally and no breath sounds over epigastrium Patient Tolerated Procedure: well Additional Comments: Chest x-ray/CT scan reveals the ET tube is in the right mainstem bronchus. It was pulled back 2-1/2 cm Course Administered Medications Ioversol (Optiray 320 125ml) 101 ml IV ONCE PRN PRN Reason: Interaction Checking Stop: 11/26/19 19:51 Last Admin: 11/22/19 19:53 Dose: 101 ml Documented by: [id number] Discontinued Medications Albuterol (Duoneb) 12 ml NEB ONE ONE Stop: 11/22/19 20:09 Last Admin: 11/22/19 20:17 Dose: 12 ml Documented by: [id number] Folic Acid 1 mg/ Syringe 10 mls @ 5 mls/min IV NOW STA Stop: 11/22/19 18:55 Last Admin: 11/22/19 20:17 Dose: 5 mls/min Documented by: [id number] Thiamine HCl 100 mg/ Syringe 10 mls @ 2 mls/min IV NOW STA Stop: 11/22/19 18:58 Last Admin: 11/22/19 20:16 Dose: 2 mls/min Documented by: [id number] Methylprednisolone (Solumedrol) 125 mg IV NOW STA Stop: 11/22/19 20:09 Last Admin: 11/22/19 20:13 Dose: 125 mg Documented by: [id number] Miscellaneous () Confirm Administered Dose 1 ea .ROUTE .STK-MED ONE Stop: 11/22/19 19:18 Last Admin: 11/22/19 20:24 Dose: Not Given Documented by: [id number] Propofol (Diprivan) Confirm Administered Dose 1,000 mg IV .STK-MED ONE Stop: 11/22/19 20:54 Last Admin: 11/22/19 20:54 Dose: 1,000 mg Documented by: [id number] Cosigned by: [id number] Critical Care Time Critical Care Time: Yes Total Critical Care Time: 50 I have personally spent approximately 50 minutes of critical care time in the direct management of this patient. This includes bedside care, interpretation of diagnostic studies, and testing, discussion with consultants, patient, and family members, and other required patient management activities. These minutes are in excess of all separately billable procedures. Medical Decision Making Differential Diagnosis Alcohol intoxication, alcohol withdrawal syndrome, ICH, COPD exacerbation, hypercapnia, hepatic encephalopathy, pneumonia, benzodiazepine overdose, CHF Medical Records Attestation: I reviewed the patient's medical records. I did perform a limited focused review of portions of the patient's old chart on the electronic medical record. The patient was seen here late last month for COPD exacerbation. Home Medications Current Medication List: was personally reviewed by me Laboratory Data Attestation: I reviewed the patient's lab results. Result diagrams: 11/22/19 19:26 11/22/19 19:26 Lab Results 11/22/19 11/22/19 11/22/19 Range/Units 19:26 19:26 19:26 WBC (4.8-10.8) K/uL RBC (4.2-5.4) M/uL Hgb (12.0-16.0) g/dL POC Hgb (12.0-16.0) g/dl Hct (37-47) % POC Hct (37-47) % MCV (80-100) fL MCH (25-34) pg MCHC (32-36) g/dL RDW Std Deviation (36.4-46.3) fL RDW Coeff of Don (11.5-14.5) % Plt Count (130-400) K/uL MPV (7.4-10.4) fL Immature Gran % (Auto) % Neut % (Auto) % Lymph % (Auto) % Coal % (Auto) % Eos % (Auto) % Baso % (Auto) % Neut # (Auto) (1.4-6.5) K/uL Lymph # (Auto) (1.2-3.4) K/uL Coal # (Auto) (0.11-0.59) K/uL Eos # (Auto) (0-0.5) K/uL Baso # (Auto) (0-0.2) K/uL Immature Gran # (Auto) (0.00-0.02) K/uL Absolute Nucleated RBC (0-0) K/uL Nucleated RBC % (auto) % Polychromasia Hypochromasia Basophilic Stippling Anisocytosis Macrocytosis PT INR APTT PTT Ratio POC pH (7.35-7.45) POC pCO2 (35-46) mmHg POC pO2 (80-95) mmHg POC HCO3 (19-24) rissa/L POC Total CO2 (24-31) mmol/L POC Base Excess (-9-1.8) rissa/L POC ABG O2 Sat (90-95) % POC Sodium (135-144) mmol/L Sodium (136-145) mmol/L POC Potassium (3.3-5.0) mmol/L Potassium (3.5-5.1) mmol/L Chloride (98-107) mmol/L Carbon Dioxide (21-32) mmol/L Anion Gap (3-11) BUN (7-18) mg/dl Creatinine (0.6-1.2) mg/dl Est Cr Clr Drug Dosing ml/min Est GFR ( Amer) Est GFR (Non-Af Amer) BUN/Creatinine Ratio (10-20) Glucose (70-99) mg/dl Calcium (8.5-10.1) mg/dl Magnesium (1.8-2.4) mg/dl Total Bilirubin (0.2-1) mg/dl AST (15-37) U/L ALT (12-78) U/L Alkaline Phosphatase (45-117) U/L Ammonia 31.0 (11-32) umol/L Troponin I 0.267 H* (0-0.045) ng/ml NT-Pro-B Natriuret Pep 2005 H (0-900) pg/ml Total Protein (6.4-8.2) gm/dl Albumin (3.4-5.0) gm/dl Globulin (2.5-4.0) gm/dl Albumin/Globulin Ratio (0.9-2) Folate (>5.38) ng/ml Specimen Hemolysis Urine Color Urine Appearance (Clear) Urine pH (4.5-7.5) Ur Specific R[place] (1.000-1.030) Urine Protein (Negative) Urine Glucose (UA) (Negative) Urine Ketones (Negative) Urine Blood (Negative) Urine Nitrite (Negative) Urine Bilirubin (Negative) Urine Urobilinogen (Negative) Ur Leukocyte Esterase (Negative) Urine WBC (Auto) (0-5) /hpf Urine RBC (Auto) (0-4) /hpf U Hyaline Cast (Auto) (0-5) /lpf U Epithel Cells (Auto) (0-5) /lpf Urine Bacteria (Auto) (Negative) Urine Opiates Screen (Neg) Ur Methadone, Qual (Neg) Urine Barbiturates (Neg) Ur Phencyclidine (PCP) (Neg) U Amphetamin/Meth Scrn (Neg) MDMA (Ecstasy) Screen (Neg) U Benzodiazepines Scrn (Neg) Ur Cocaine Metabolite (Neg) U Marijuana (THC) Screen (Neg) Ethyl Alcohol mg/dL < 3.0 (0-3) mg/dl 11/22/19 11/22/19 11/22/19 Range/Units 19:26 19:26 19:26 WBC 8.41 (4.8-10.8) K/uL RBC 3.35 L (4.2-5.4) M/uL Hgb 9.1 L (12.0-16.0) g/dL POC Hgb (12.0-16.0) g/dl Hct 35.1 L (37-47) % POC Hct (37-47) % MCV 104.8 H (80-100) fL MCH 27.2 (25-34) pg MCHC 25.9 L (32-36) g/dL RDW Std Deviation 76.7 H (36.4-46.3) fL RDW Coeff of Don 19.8 H (11.5-14.5) % Plt Count 308 (130-400) K/uL MPV 9.4 (7.4-10.4) fL Immature Gran % (Auto) 1.7 % Neut % (Auto) 65.3 % Lymph % (Auto) 17.4 % Coal % (Auto) 12.8 % Eos % (Auto) 1.1 % Baso % (Auto) 1.7 % Neut # (Auto) 5.50 (1.4-6.5) K/uL Lymph # (Auto) 1.46 (1.2-3.4) K/uL Coal # (Auto) 1.08 H (0.11-0.59) K/uL Eos # (Auto) 0.09 (0-0.5) K/uL Baso # (Auto) 0.14 (0-0.2) K/uL Immature Gran # (Auto) 0.14 H (0.00-0.02) K/uL Absolute Nucleated RBC 0.15 H (0-0) K/uL Nucleated RBC % (auto) 1.8 % Polychromasia 1+ Hypochromasia Present Basophilic Stippling 1+ Anisocytosis Present Macrocytosis Present PT Cancelled INR Cancelled APTT Cancelled PTT Ratio Cancelled POC pH (7.35-7.45) POC pCO2 (35-46) mmHg POC pO2 (80-95) mmHg POC HCO3 (19-24) rissa/L POC Total CO2 (24-31) mmol/L POC Base Excess (-9-1.8) rissa/L POC ABG O2 Sat (90-95) % POC Sodium (135-144) mmol/L Sodium 142 (136-145) mmol/L POC Potassium (3.3-5.0) mmol/L Potassium 5.2 H (3.5-5.1) mmol/L Chloride 100 (98-107) mmol/L Carbon Dioxide 40 H (21-32) mmol/L Anion Gap 2.0 L (3-11) BUN 14 (7-18) mg/dl Creatinine 0.54 L (0.6-1.2) mg/dl Est Cr Clr Drug Dosing 98.0 ml/min Est GFR ( Amer) 118.9 Est GFR (Non-Af Amer) 102.6 BUN/Creatinine Ratio 26.6 H (10-20) Glucose 111 H (70-99) mg/dl Calcium 9.1 (8.5-10.1) mg/dl Magnesium 1.7 L (1.8-2.4) mg/dl Total Bilirubin 0.3 (0.2-1) mg/dl AST 214 H (15-37) U/L ALT 171 H (12-78) U/L Alkaline Phosphatase 291 H (45-117) U/L Ammonia (11-32) umol/L Troponin I (0-0.045) ng/ml NT-Pro-B Natriuret Pep (0-900) pg/ml Total Protein 6.6 (6.4-8.2) gm/dl Albumin 2.5 L (3.4-5.0) gm/dl Globulin 4.1 H (2.5-4.0) gm/dl Albumin/Globulin Ratio 0.6 L (0.9-2) Folate (>5.38) ng/ml Specimen Hemolysis Urine Color Urine Appearance (Clear) Urine pH (4.5-7.5) Ur Specific R[place] (1.000-1.030) Urine Protein (Negative) Urine Glucose (UA) (Negative) Urine Ketones (Negative) Urine Blood (Negative) Urine Nitrite (Negative) Urine Bilirubin (Negative) Urine Urobilinogen (Negative) Ur Leukocyte Esterase (Negative) Urine WBC (Auto) (0-5) /hpf Urine RBC (Auto) (0-4) /hpf U Hyaline Cast (Auto) (0-5) /lpf U Epithel Cells (Auto) (0-5) /lpf Urine Bacteria (Auto) (Negative) Urine Opiates Screen (Neg) Ur Methadone, Qual (Neg) Urine Barbiturates (Neg) Ur Phencyclidine (PCP) (Neg) U Amphetamin/Meth Scrn (Neg) MDMA (Ecstasy) Screen (Neg) U Benzodiazepines Scrn (Neg) Ur Cocaine Metabolite (Neg) U Marijuana (THC) Screen (Neg) Ethyl Alcohol mg/dL (0-3) mg/dl 11/22/19 11/22/19 11/22/19 Range/Units 19:26 19:26 19:26 WBC (4.8-10.8) K/uL RBC (4.2-5.4) M/uL Hgb (12.0-16.0) g/dL POC Hgb (12.0-16.0) g/dl Hct (37-47) % POC Hct (37-47) % MCV (80-100) fL MCH (25-34) pg MCHC (32-36) g/dL RDW Std Deviation (36.4-46.3) fL RDW Coeff of Don (11.5-14.5) % Plt Count (130-400) K/uL MPV (7.4-10.4) fL Immature Gran % (Auto) % Neut % (Auto) % Lymph % (Auto) % Coal % (Auto) % Eos % (Auto) % Baso % (Auto) % Neut # (Auto) (1.4-6.5) K/uL Lymph # (Auto) (1.2-3.4) K/uL Coal # (Auto) (0.11-0.59) K/uL Eos # (Auto) (0-0.5) K/uL Baso # (Auto) (0-0.2) K/uL Immature Gran # (Auto) (0.00-0.02) K/uL Absolute Nucleated RBC (0-0) K/uL Nucleated RBC % (auto) % Polychromasia Hypochromasia Basophilic Stippling Anisocytosis Macrocytosis PT INR APTT PTT Ratio POC pH (7.35-7.45) POC pCO2 (35-46) mmHg POC pO2 (80-95) mmHg POC HCO3 (19-24) rissa/L POC Total CO2 (24-31) mmol/L POC Base Excess (-9-1.8) rissa/L POC ABG O2 Sat (90-95) % POC Sodium (135-144) mmol/L Sodium (136-145) mmol/L POC Potassium (3.3-5.0) mmol/L Potassium (3.5-5.1) mmol/L Chloride (98-107) mmol/L Carbon Dioxide (21-32) mmol/L Anion Gap (3-11) BUN (7-18) mg/dl Creatinine (0.6-1.2) mg/dl Est Cr Clr Drug Dosing ml/min Est GFR ( Amer) Est GFR (Non-Af Amer) BUN/Creatinine Ratio (10-20) Glucose (70-99) mg/dl Calcium (8.5-10.1) mg/dl Magnesium (1.8-2.4) mg/dl Total Bilirubin (0.2-1) mg/dl AST (15-37) U/L ALT (12-78) U/L Alkaline Phosphatase (45-117) U/L Ammonia (11-32) umol/L Troponin I (0-0.045) ng/ml NT-Pro-B Natriuret Pep (0-900) pg/ml Total Protein (6.4-8.2) gm/dl Albumin (3.4-5.0) gm/dl Globulin (2.5-4.0) gm/dl Albumin/Globulin Ratio (0.9-2) Folate 21.02 (>5.38) ng/ml Specimen Hemolysis Urine Color Dark Yellow Urine Appearance Clear (Clear) Urine pH 5.5 (4.5-7.5) Ur Specific [place] 1.022 (1.000-1.030) Urine Protein 1+ H (Negative) Urine Glucose (UA) Negative (Negative) Urine Ketones Negative (Negative) Urine Blood Negative (Negative) Urine Nitrite Negative (Negative) Urine Bilirubin Negative (Negative) Urine Urobilinogen Negative (Negative) Ur Leukocyte Esterase Negative (Negative) Urine WBC (Auto) 1-5 (0-5) /hpf Urine RBC (Auto) 0-4 (0-4) /hpf U Hyaline Cast (Auto) 1-5 (0-5) /lpf U Epithel Cells (Auto) 5-10 H (0-5) /lpf Urine Bacteria (Auto) Negative (Negative) Urine Opiates Screen Neg (Neg) Ur Methadone, Qual Neg (Neg) Urine Barbiturates Neg (Neg) Ur Phencyclidine (PCP) Neg (Neg) U Amphetamin/Meth Scrn Neg (Neg) MDMA (Ecstasy) Screen Neg (Neg) U Benzodiazepines Scrn Pos H (Neg) Ur Cocaine Metabolite Neg (Neg) U Marijuana (THC) Screen Pos H (Neg) Ethyl Alcohol mg/dL (0-3) mg/dl 11/22/19 11/22/19 Range/Units 20:02 20:23 WBC (4.8-10.8) K/uL RBC (4.2-5.4) M/uL Hgb (12.0-16.0) g/dL POC Hgb 9.9 L (12.0-16.0) g/dl Hct (37-47) % POC Hct 29 L (37-47) % MCV (80-100) fL MCH (25-34) pg MCHC (32-36) g/dL RDW Std Deviation (36.4-46.3) fL RDW Coeff of Don (11.5-14.5) % Plt Count (130-400) K/uL MPV (7.4-10.4) fL Immature Gran % (Auto) % Neut % (Auto) % Lymph % (Auto) % Coal % (Auto) % Eos % (Auto) % Baso % (Auto) % Neut # (Auto) (1.4-6.5) K/uL Lymph # (Auto) (1.2-3.4) K/uL Coal # (Auto) (0.11-0.59) K/uL Eos # (Auto) (0-0.5) K/uL Baso # (Auto) (0-0.2) K/uL Immature Gran # (Auto) (0.00-0.02) K/uL Absolute Nucleated RBC (0-0) K/uL Nucleated RBC % (auto) % Polychromasia Hypochromasia Basophilic Stippling Anisocytosis Macrocytosis PT 10.3 INR 1.0 APTT 20.3 L PTT Ratio 0.7 POC pH 7.28 L (7.35-7.45) POC pCO2 90 H (35-46) mmHg POC pO2 76 L (80-95) mmHg POC HCO3 42 H (19-24) rissa/L POC Total CO2 > 40 H* (24-31) mmol/L POC Base Excess 15.0 H (-9-1.8) rissa/L POC ABG O2 Sat 92.0 (90-95) % POC Sodium 139 (135-144) mmol/L Sodium (136-145) mmol/L POC Potassium 4.3 (3.3-5.0) mmol/L Potassium (3.5-5.1) mmol/L Chloride (98-107) mmol/L Carbon Dioxide (21-32) mmol/L Anion Gap (3-11) BUN (7-18) mg/dl Creatinine (0.6-1.2) mg/dl Est Cr Clr Drug Dosing ml/min Est GFR ( Amer) Est GFR (Non-Af Amer) BUN/Creatinine Ratio (10-20) Glucose (70-99) mg/dl Calcium (8.5-10.1) mg/dl Magnesium (1.8-2.4) mg/dl Total Bilirubin (0.2-1) mg/dl AST (15-37) U/L ALT (12-78) U/L Alkaline Phosphatase (45-117) U/L Ammonia (11-32) umol/L Troponin I (0-0.045) ng/ml NT-Pro-B Natriuret Pep (0-900) pg/ml Total Protein (6.4-8.2) gm/dl Albumin (3.4-5.0) gm/dl Globulin (2.5-4.0) gm/dl Albumin/Globulin Ratio (0.9-2) Folate (>5.38) ng/ml Specimen Hemolysis Urine Color Urine Appearance (Clear) Urine pH (4.5-7.5) Ur Specific [place] (1.000-1.030) Urine Protein (Negative) Urine Glucose (UA) (Negative) Urine Ketones (Negative) Urine Blood (Negative) Urine Nitrite (Negative) Urine Bilirubin (Negative) Urine Urobilinogen (Negative) Ur Leukocyte Esterase (Negative) Urine WBC (Auto) (0-5) /hpf Urine RBC (Auto) (0-4) /hpf U Hyaline Cast (Auto) (0-5) /lpf U Epithel Cells (Auto) (0-5) /lpf Urine Bacteria (Auto) (Negative) Urine Opiates Screen (Neg) Ur Methadone, Qual (Neg) Urine Barbiturates (Neg) Ur Phencyclidine (PCP) (Neg) U Amphetamin/Meth Scrn (Neg) MDMA (Ecstasy) Screen (Neg) U Benzodiazepines Scrn (Neg) Ur Cocaine Metabolite (Neg) U Marijuana (THC) Screen (Neg) Ethyl Alcohol mg/dL (0-3) mg/dl Imaging Data Radiologist's Impression: CT ANGIOGRAM OF THE CHEST CLINICAL HISTORY: Shortness of breath. Possible acute pulmonary embolism. COMPARISON STUDY: Chest x-ray dated 11/22/2019 TECHNIQUE: Following the IV administration of 101 mL of Optiray-320, CT angiogram of the thorax was performed from the thoracic inlet to the lung bases utilizing the pulmonary embolus protocol. Images are reviewed in the axial, sagittal, and coronal planes. IV contrast was administered without complication. MIP imaging was performed. A dose lowering technique was utilized adhering to the principles of ALARA. CT DOSE: 1026.63 mGy.cm FINDINGS: There is hepatic steatosis. There is a hiatal hernia. No pathologically enlarged axillary mediastinal or hilar lymph nodes were visualized. There was no evidence of thoracic aortic dilatation. There were no pulmonary artery filling defects to indicate acute pulmonary embolism. No pleural effusions are visualized. There is an endotracheal tube within the right mainstem bronchus orifice. There is left lung volume loss and parenchymal opacity likely secondary to atelectatic change given the endotracheal tube position. There is fluid within the left yady nstem bronchus, and proximal left upper lobe and left lower lobe bronchi. Reevaluation of the left lung can be performed on subsequent chest x-rays following endotracheal tube repositioning. There are multiple scattered calcified granulomas. IMPRESSION: 1. No evidence of acute pulmonary embolism 2. Endotracheal tube positioned with its tip just distal to the level of the right mainstem bronchus orifice. Endotracheal tube repositioning is recommended. This finding was called to Dr. Patterson at 7:52 PM 3. Left lung volume loss. Fluid within the distal left mainstem bronchus and proximal left upper lobe and left lower lobe bronchi. 3. Hepatic steatosis 4. Hiatal hernia ACT 112: Negative or not required by law. Electronically signed by: Dariel Rangel M.D. 11/22/2019 7:[address] head/brain wo con CLINICAL HISTORY: Acute change in mental status. COMPARISON STUDY: May 10, 2014 TECHNIQUE: Axial CT of the brain is performed from the vertex to the skull base. IV contrast was not administered for this examination. A dose lowering technique was utilized adhering to the principles of ALARA. CT DOSE: FINDINGS: No intra or extra-axial mass lesions are visualized. There is no CT evidence of acute cortical infarction. There is no evidence of midline shift. There is no acute hemorrhage. No calvarial fractures are visualized. There are minor white matter hypodensities likely on a small vessel basis. There is no evidence of pathologic ventricular dilatation. There is no evidence of acute sinusitis IMPRESSION: No acute intracranial findings ACT 112: Negative or not required by law. Electronically signed by: Dariel Rangel M.D. 11/22/2019 7:56 PM XR chest 1V portable CLINICAL HISTORY: Dyspnea COMPARISON STUDY: 11/03/2019 FINDINGS: Study is rotated. There is an endotracheal tube at the level of the anirudh. There is mild left lung volume loss and there are left lower lung zone airspace opacities. There is no overt failure.[ IMPRESSION: 1. Endotracheal tube at the level the anirudh. This should be repositioned. 2. Left lung volume loss with left lower lung zone airspace opacities ACT 112: Negative or not required by law. Electronically signed by: Dariel Rangel M.D. 11/22/2019 7:41 PM ECG Data Attestation: I personally reviewed and interpreted this ECG as follows: Indication: + SOB/dyspnea Rate (beats per minute): 98 Rhythm: + normal sinus ECG Intervals/blocks: no Left bundle branch block ECG ST segments: no ST elevation ECG Findings: no PVCs Blood Pressure Blood Pressure Findings: Elevated blood pressure Blood Pressure Disposition: further management by hospitalist BERNARDA Fields I did evaluate the patient as noted above. I did obtain history from the patient as well as her due to her mental status. IV access was established. I did treat her with IV folate and thiamine. I did place an order for continuous cardiac monitoring. The monitor showed normal sinus rhythm at a rate of 99. I did order and personally review the patient's 12-lead EKG as described above. After initial evaluation of the patient the nurses came back to me and stated that the patient was in significant respiratory distress. She was no longer conscious and had agonal breathing with a drop in her pulse ox into the 50s. An oral airway was placed. She was ventilated using a bag valve mask. I talked to the who was agreeable to rapid sequence intubation. I did perform RSI as described above. I did order and personally reviewed the images of the patient's chest x-ray as described above. The ET tube is advanced too far. I did order a CT of the head and CT angiogram of the chest. I did r eview the images myself as well as the radiology report as described above. She has no evidence of PE or consolidation. The ET tube is in the right mainstem bronchus. It was pulled back 2-1/2 cm. I did order a urine analysis. There is no evidence of pneumonia. I did order and review the patient's blood work as noted in the electronic medical record. Blood gas shows a respiratory acidosis with a PaCO2 of 90 and a PaO2 of 26. LFTs are abnormal consistent with alcoholic hepatitis. Her bilirubin is within normal limits. Ammonia is 31. Troponin is elevated as well but she does not have any acute ischemia on her twelve-lead EKG. I did reassess her multiple times. I did discuss the results with her . I did treat her with Solu-Medrol 125 mg IV and an hour-long continuous DuoNeb. I did discuss the case with the hospitalist and wrapper caser for admission to the ICU. Impression & Plan Respiratory failure, Abnormal LFTs, Acute alteration in mental status, Elevated troponin Discharge Plan Visit Data Chief Complaint: Unresponsive Stated Complaint: UNRESPONSIVE, IN THE MIDDLE OF DETOX ED Provider: Daniel Ann Discharge Problem: Respiratory failure, Abnormal LFTs, Acute alteration in mental status, Elevated troponin Patient Disposition: Admitted As Inpatient Discharge Instructions Interventions: ED Discharge Assessment Last Done: 11/22/19 21:42 Discharge Problem: Respiratory failure Qualifiers: Chronicity: acute Respiratory failure complication: hypoxia and hypercapnia Qualified Code(s): J96.01 - Acute respiratory failure with hypoxia
[2019-11-22] MEDS ORDERED: RAPID SEQUENCE INDUCTION BAG ONE (19:17)
--- NOTE | 2019-11-22 19:42 | XRay Report ---
XR chest 1V portable CLINICAL HISTORY: Dyspnea COMPARISON STUDY: 11/03/2019 FINDINGS: Study is rotated. There is an endotracheal tube at the level of the anirudh. There is mild l eft lung volume loss and there are left lower lung zone airspace opacities. There is no overt failure .[ IMPRESSION: 1. Endotracheal tube at the level the anirudh. This should be repositioned. 2. Left lung volume loss with left lower lung zone airspace opacities ACT 112: Negative or not required by law. Electronically signed by: Dariel Rangel M.D. 11/22/2019 7:41 PM
[2019-11-22] MEDS ORDERED: OPTIRAY 320 125ml IV PRN (19:52)
[2019-11-22 19:53] LABS: Appearance Urine Clear (Clear); Bacteria Urine Automated Negative (Negative); Bilirubin Urine Negative (Negative); Blood Urine Negative (Negative); Color Urine Dark Yellow; Glucose Urine UA Negative (Negative); Ketones Urine Negative (Negative); Leukocyte Esterase Urine Negative (Negative); Nitrite Urine Negative (Negative); Protein Urine 1+ (Negative); RBC Urine Automated 0-4 /hpf (0-4); Specific Gravity Urine 1.022 (1.000-1.030); Urobilinogen Urine Negative (Negative); pH Urine 5.5 (4.5-7.5)
--- NOTE | 2019-11-22 19:57 | CT Scan Report ---
CT head/brain wo con CLINICAL HISTORY: Acute change in mental status. COMPARISON STUDY: May 10, 2014 TECHNIQUE: Axial CT of the brain is performed from the vertex to the skull base. IV contrast was not administered for this examination. A dose lowering technique was utilized adhering to the principles of ALARA. CT DOSE: FINDINGS: No intra or extra-axial mass lesions are visualized. There is no CT evidence of acute cortical infarc tion. There is no evidence of midline shift. There is no acute hemorrhage. No calvarial fractures ar e visualized. There are minor white matter hypodensities likely on a small vessel basis. There is no evidence of pathologic ventricular dilatation. There is no evidence of acute sinusitis IMPRESSION: No acute intracranial findings ACT 112: Negative or not required by law. Electronically signed by: Dariel Rangel M.D. 11/22/2019 7:56 PM
--- NOTE | 2019-11-22 20:00 | CT Scan Report ---
CT ANGIOGRAM OF THE CHEST CLINICAL HISTORY: Shortness of breath. Possible acute pulmonary embolism. COMPARISON STUDY: Chest x-ray dated 11/22/2019 TECHNIQUE: Following the IV administration of 101 mL of Optiray-320, CT angiogram of the thorax was p erformed from the thoracic inlet to the lung bases utilizing the pulmonary embolus protocol. Images a re reviewed in the axial, sagittal, and coronal planes. IV contrast was administered without complica tion. MIP imaging was performed. A dose lowering technique was utilized adhering to the principles o f ALARA. CT DOSE: 1026.63 mGy.cm FINDINGS: There is hepatic steatosis. There is a hiatal hernia. No pathologically enlarged axillary mediastinal or hilar lymph nodes were visualized. There was no evidence of thoracic aortic dilatation. There were no pulmonary artery filling defects to indicate acute pulmonary embolism. No pleural effusions are visualized. There is an endotracheal tube within the right mainstem bronchus orifice. There is left lung volume l oss and parenchymal opacity likely secondary to atelectatic change given the endotracheal tube positi on. There is fluid within the left mainstem bronchus, and proximal left upper lobe and left lower lob e bronchi. Reevaluation of the left lung can be performed on subsequent chest x-rays following endotr acheal tube repositioning. There are multiple scattered calcified granulomas. IMPRESSION: 1. No evidence of acute pulmonary embolism 2. Endotracheal tube positioned with its tip just distal to the level of the right mainstem bronchus orifice. Endotracheal tube repositioning is recommended. This finding was called to Dr. Patterson at 7:52 P M 3. Left lung volume loss. Fluid within the distal left mainstem bronchus and proximal left upper lobe and left lower lobe bronchi. 3. Hepatic steatosis 4. Hiatal hernia ACT 112: Negative or not required by law. Electronically signed by: Dariel Rangel M.D. 11/22/2019 7:59 PM
[2019-11-22] MEDS ORDERED: ALBUT/IPRATROP 3MG/0.5MG NEB 3 ML VIAL NEB ONE (20:08)
[2019-11-22] MEDS ORDERED: methylPREDNISolone 125 MG/2 ML VIAL IV STA (20:08)
[2019-11-22 20:09] LABS: Albumin Globulin Ratio 0.6 (0.9-2); Albumin Level 2.5 gm/dl (3.4-5.0); BUN Creatinine Ratio 26.6 (10-20); Bilirubin,Total 0.3 mg/dl (0.2-1); Calcium 9.1 mg/dl (8.5-10.1); Est GFR (African American) 118.9; Est GFR (Non-African American) 102.6; Globulin 4.1 gm/dl (2.5-4.0); Magnesium 1.7 mg/dl (1.8-2.4); Potassium 5.2 mmol/L (3.5-5.1); Total Protein 6.6 gm/dl (6.4-8.2)
[2019-11-22 20:13] LABS: Amphetamines+Metham, Urine Neg (Neg); Barbiturates, Urine Neg (Neg); Benzodiazepine, Urine Pos (Neg); Cocaine, Urine Neg (Neg); MDMA (Ecstacy), Urine Neg (Neg); Methadone, Urine Neg (Neg); Opiate, Urine Neg (Neg); Phencyclidine, Urine Neg (Neg)
[2019-11-22 20:16] LABS: iSTAT Arterial Blood Gas HCO3 42 meg/L (19-24); iSTAT Arterial Blood Gas pCO2 90 mmHg (35-46); iSTAT Arterial Blood Gas pH 7.28 (7.35-7.45); iSTAT Arterial Blood Gas pO2 76 mmHg (80-95); iSTAT Carbon Dioxide > 40 mmol/L (24-31); iSTAT Hematocrit 29 % (37-47); iSTAT Hemoglobin 9.9 g/dl (12.0-16.0); iSTAT Potassium 4.3 mmol/L (3.3-5.0); iSTAT Sodium 139 mmol/L (135-144)
[2019-11-22 20:20] LABS: Troponin I 0.267 ng/ml (0-0.045)
[2019-11-22 20:28] LABS: Hematocrit (blood only) 35.1 % (37-47); Hemoglobin 9.1 g/dL (12.0-16.0); Mean Corpuscular Hemoglobin 27.2 pg (25-34); Mean Corpuscular Hgb Conc 25.9 g/dL (32-36); Mean Corpuscular Volume 104.8 fL (80-100); Mean Platelet Volume 9.4 fL (7.4-10.4); Nucleated RBC # (auto) 0.15 K/uL (0-0); Nucleated RBC % (auto) 1.8 %; Platelet Count 308 K/uL (130-400); RDW Coefficient of Variation 19.8 % (11.5-14.5); RDW Standard Deviation 76.7 fL (36.4-46.3); Red Blood Count 3.35 M/uL (4.2-5.4); White Blood Count 8.41 K/uL (4.8-10.8)
[2019-11-22 20:36] LABS: Anisocytosis Present; Basophilic Stippling 1+; Basophils # (auto) 0.14 K/uL (0-0.2); Basophils % (auto) 1.7 %; Eosinophils # (auto) 0.09 K/uL (0-0.5); Eosinophils % (auto) 1.1 %; Hypochromasia Present; Immature Granulocytes # (auto) 0.14 K/uL (0.00-0.02); Immature Granulocytes % (auto) 1.7 %; Lymphocytes # (auto) 1.46 K/uL (1.2-3.4); Lymphocytes % (auto) 17.4 %; Macrocytosis Present; Monocytes # (auto) 1.08 K/uL (0.11-0.59); Monocytes % (auto) 12.8 %; Neutrophils % (auto) 65.3 %; Polychromasia 1+
[2019-11-22 20:40] LABS: Partial Thromboplastin Ratio 0.7; Partial Thromboplastin Time 20.3 Seconds (21.0-31.0); Prothrombin Time 10.3 Seconds (9.0-12.0)
[2019-11-22] MEDS ORDERED: PROPOFOL BOLUS FROM BAG IV PRN (20:51)
[2019-11-22] MEDS ORDERED: STAT IV Infusion **Titration per Protocol STA (20:51)
[2019-11-22] MEDS ORDERED: PROPOFOL IV EMULSION 10 MG/ML 100 ML VIAL IV ONE (20:53)
--- NOTE | 2019-11-22 20:57 | History & Physical Report ---
Date of Service November 22, 2019 Assessment & Plan (1) Respiratory failure: 59yo female with history of O2 dependent COPD, EtOH abuse currently undergoing outpatient detoxification presenting to the ER with 1-2 days of SOB, confusion, slurred speech. Patient became unresponsive and hypoxic in the ER requiring urgent intubation for hypoxic/hypercarbic respiratory failure. ABG with acute on chronic respiratory acidosis. Elevated troponin at 0.267 and BNP at 2005, elevated AST/ALT/AP. CXR with fluid filled left bronchus and LLL airspace opacity Neuro: patient intubated, sedated. History of EtOH abuse currently undergoing outpatient detox with Librium. History of depression -Admit to MICU -Propofol gtt for sedation -Fentanyl gtt for pain control -Propofol gtt should cover for alcohol withdrawal -Continue thiamine daily Cardiovascular: Patient hemodynamically stable. Elevated troponin and BNP as well as complaint of BL LE edema -Hold spironolactone for now given mildly elevated K -Lasix 20mg IV x 1 -Trend troponin -Consider 2D echo Pulmonary: Patient with O2 dependent COPD presenting with acute on chronic hypoxic/hypercarbic respiratory failure requiring intubation and mechanical ventilation. Suspect acute exacerbation of COPD, possible component of CHF as cause for hypoxia. LLL airspace opacity and fluid filled bronchus ?aspiration -AC 400/22/50/5, rate increased from 18 to 22 based on ABG results of pCO2 of 90. Repeat ABG on arrival to MICU -Ventilator management with daily weaning trials -Solumedrol 30mg IV q 8 -DuoNeb q 4 hours -Check Procalcitonin -Ceftriaxone and Azithromycin for empiric pulmonary coverage GI: Patient with history of EtOH abuse, hepatitis, cirrhosis. Does not appear to be in decompensated cirrhosis at this time. Ammonia WNL -Repeat LFTs -Check INR -Lasix as above, holding Spironolactone for now : BUN and Cr within normal limits. Edmondson in place. Mild hyperkalemia with K=5.2 after intubation. No EKG changes -Routine Edmondson care q shift -Monitor I/Os -Monitor BUN/Cr/electrolytes Heme: Patient with stable macrocytic anemia, OCX=231.8. Folate level normal at 21.02 -Check B12 level -Folic acid 1mg po daily ID: Patient afebrile, HD stable, no leukocytosis. Does not clinically appear to have PNA, although CXR read as LLL airspace opacity, ?aspiration event -Check Procalcitonin -Check blood cultures x 2 sets -Empiric coverage with Ceftriaxone and Azithro Endocrine: No active issues F/E/N - Gentle diuresis with Lasix 20mg IV x 1 dose, monitor strict I/Os, replet Mg with 2gm IV, NPO for now Ppx - Protonix 40mg po daily while intubated, Lovenox daily Code - Full Code per discussion with Dispo -Admit to MICU (2) Acute alteration in mental status: (3) Abnormal LFTs: (4) Elevated troponin: (5) COPD exacerbation: (6) Depression: (7) Alcohol dependence: (8) Tobacco abuse: History of Present Illness Chief Complaint: Hypoxic respiratory failure, Altered mental status Primary Care Provider: Bentley Childs Jr, DO Lakeisha Aguirre is a 59yo female with history of COPD on 2L O2 qHS and PRN, EtOH abuse with alcoholic hepatitis and cirrhosis presenting with hypoxic/hypercarbic respiratory failure. History obtained through discussion with and ER staff as well as chart review. Patient intubated and sedated at time of encounter. Patient has be detoxifying at home with scheduled Librium since November 12. Overall she has been doing well with that. Over the last two weeks she has been complaining of increased lower extremity edema, R>L. She had an outpatient venous doppler of the RLE performed on 11/11/19 which was negative for DVT. She was started on Spironolactone. She reports decreased UOP over the last two day s. Patient was behaving strangely today, confused, possible hallucinations about bears in her home with some shortness of breath. She became somnolent earlier today and took a nap. Her reports HR of 110 and oxygen saturation of 87% despite being on her home oxygen. Upon arrival to the ER she ws found to be afebrile, tachycardic at 101, BP 136/79, RR of 30 saturating 92 on 5L NC. Patient was initially somnolent but arousable with slurred speech. She was following commands and moving all extremities. Patient then became minimally responsive, hypoxic with saturations reportedly in the 50's and apneic episodes. She was intubated for hypoxic/hypercarbic respiratory failure. ER Course: Thiamine 100mg, Folic acid 1mg, Albuterol 12mL/neb, Solumedrol 125mg IV Allergies Allergy/AdvReac Type Severity Reaction Status Date / Time RACIEL Inhibitors AdvReac Mild COUGH Verified 07/16/19 20:39 naltrexone [From Vivitrol] AdvReac Hair Verified 07/16/19 20:39 loss/ingrown hairs over body Home Medications Home Medications Medication Instructions Recorded Confirmed Type budesonide-formoterol [Symbicort] 2 puff INHALATION BID 08/13/18 11/03/19 History Combivent Respimat 1 puffs INH QID #4 gm 11/28/18 11/03/19 Rx ergocalciferol (vitamin D2) 50,000 unit PO WK 11/03/19 11/03/19 History prednisone 5 mg PO DAILY 11/03/19 11/03/19 History chlordiazepoxide HCl See Rx Instructions .ROUTE .COMPLEX 11/22/19 11/22/19 History clonidine 1 patch TOPICAL WK 11/22/19 11/22/19 History spironolactone 25 mg PO BID 11/22/19 11/22/19 History Past Med/Surg History Medical History Alcohol withdrawal syndrome Alcoholic hepatitis (Chronic) Ascites (Acute) Asthma (Chronic) Constipation (Acute) COPD (chronic obstructive pulmonary disease) (Chronic) Depression Emphysema of lung ETOH abuse (Resolved 08/17/13) Jaundice (Acute) Left lower lobe pneumonia Leukocytosis (Acute 04/21/14) Liver failure, acute (04/21/14) Parapneumonic effusion Pneumonia Sepsis due to Streptococcus pneumoniae Tachycardia (Acute 08/17/13) Surgical History S/P removal of ovarian cyst Family History Father Hypertension Myocardial infarction Social History Preferred Language: Chinese Communication Ability: Effective Trouble Tracer Required: No Beliefs That Will Affect Care: None marital status: Current Living Situation: Spouse Feels Safe at Home: Yes Smoking Status: Current every day smoker Tobacco Type: cigarettes ; Cigarettes Per Day: 20 ; Second Hand Exposure: Yes ; Hx Alcohol Use: Yes Alcohol type: hard liquor Alcohol Intake Frequency Comment: 500 ml a day Hx Substance Use: No Review of Systems Review of Systems: Unobtainable due to endotracheal tube Physical Exam Physical Exam: General: patient intubated, sedated, not following commands at this time Skin: warm, dry, intact, mottling of bilateral knees HEENT: NC/AT, pupils constricted, equal, round and sluggish, anicteric sclera, left conjunctivitis with crusting, external ear normal to inspection and nontender, nares patent, moist mucus membranes, dentition intact, no oropharyngeal lesions, neck supple, trachea midline, no LAD, no thyromegaly, no JVD, ETT and OGT in place Heart: +S1/S2, regular, no m/r/g Lungs: equal air entry bilaterally, diminished breath sounds, no rales/rhonchi/wheezes Abd: +BS, soft, NT/ND, no masses/organomegaly/ascites Ext: warm, 2+ pulses in UE/LE bilaterally, no clubbing/cyanosis, 2+ edema RLE, 1+ edema in left foot Neuro: intubated, sedated Results & Data Results & Data ([facility]) Vital Signs (Past 12 Hours) Vital Signs Temp Pulse Resp BP Pulse Ox 11/22/19 20:25 88 87 L 11/22/19 20:20 88 94 11/22/19 20:16 91 H 96 11/22/19 20:15 93 H 170/97 H 97 11/22/19 20:10 92 H 97 11/22/19 20:05 92 H 97 11/22/19 20:01 90 136/87 96 11/22/19 20:00 92 H 94 11/22/19 19:57 97 11/22/19 19:55 93 H 157/73 H 97 11/22/19 19:53 89 L 11/22/19 19:36 99 H 117/69 97 11/22/19 19:35 97 H 97 11/22/19 19:31 99 H 23 157/85 H 100 11/22/19 19:30 17 100 11/22/19 19:26 105 H 19 189/131 H 96 11/22/19 19:25 95 H 14 99 11/22/19 19:20 102 H 31 H 100 11/22/19 19:17 108 H 41 H 11/22/19 19:15 107 H 41 H 186/105 H 97 11/22/19 19:10 116 H 39 H 83 L 11/22/19 19:05 100 H 39 H 89 L 11/22/19 19:03 94 11/22/19 19:00 107 H 34 H 154/75 H 94 11/22/19 18:57 102 H 43 H 93 11/22/19 18:54 96 H 43 H 124/92 93 11/22/19 18:33 37.1 C 101 H 30 H 136/79 92 Laboratory Results Lab Results 11/22/19 11/22/19 11/22/19 Range/Units 19:26 19:26 19:26 WBC (4.8-10.8) K/uL RBC (4.2-5.4) M/uL Hgb (12.0-16.0) g/dL POC Hgb (12.0-16.0) g/dl Hct (37-47) % POC Hct (37-47) % MCV (80-100) fL MCH (25-34) pg MCHC (32-36) g/dL RDW Std Deviation (36.4-46.3) fL RDW Coeff of Don (11.5-14.5) % Plt Count (130-400) K/uL MPV (7.4-10.4) fL Immature Gran % (Auto) % Neut % (Auto) % Lymph % (Auto) % [place] % (Auto) % Eos % (Auto) % Baso % (Auto) % Neut # (Auto) (1.4-6.5) K/uL Lymph # (Auto) (1.2-3.4) K/uL [place] # (Auto) (0.11-0.59) K/uL Eos # (Auto) (0-0.5) K/uL Baso # (Auto) (0-0.2) K/uL Immature Gran # (Auto) (0.00-0.02) K/uL Absolute Nucleated RBC (0-0) K/uL Nucleated RBC % (auto) % Polychromasia Hypochromasia Basophilic Stippling Anisocytosis Macrocytosis PT INR APTT PTT Ratio POC pH (7.35-7.45) POC pCO2 (35-46) mmHg POC pO2 (80-95) mmHg POC HCO3 (19-24) rissa/L POC Total CO2 (24-31) mmol/L POC Base Excess (-9-1.8) rissa/L POC ABG O2 Sat (90-95) % POC Sodium (135-144) mmol/L Sodium (136-145) mmol/L POC Potassium (3.3-5.0) mmol/L Potassium (3.5-5.1) mmol/L Chloride (98-107) mmol/L Carbon Dioxide (21-32) mmol/L Anion Gap (3-11) BUN (7-18) mg/dl Creatinine (0.6-1.2) mg/dl Est Cr Clr Drug Dosing ml/min Est GFR ( Amer) Est GFR (Non-Af Amer) BUN/Creatinine Ratio (10-20) Glucose (70-99) mg/dl Calcium (8.5-10.1) mg/dl Magnesium (1.8-2.4) mg/dl Total Bilirubin (0.2-1) mg/dl AST (15-37) U/L ALT (12-78) U/L Alkaline Phosphatase (45-117) U/L Ammonia 31.0 (11-32) umol/L Troponin I 0.267 H* (0-0.045) ng/ml NT-Pro-B Natriuret Pep 2005 H (0-900) pg/ml Total Protein (6.4-8.2) gm/dl Albumin (3.4-5.0) gm/dl Globulin (2.5-4.0) gm/dl Albumin/Globulin Ratio (0.9-2) Folate (>5.38) ng/ml Specimen Hemolysis Urine Color Urine Appearance (Clear) Urine pH (4.5-7.5) Ur Specific [place] (1.000-1.030) Urine Protein (Negative) Urine Glucose (UA) (Negative) Urine Ketones (Negative) Urine Blood (Negative) Urine Nitrite (Negative) Urine Bilirubin (Negative) Urine Urobilinogen (Negative) Ur Leukocyte Esterase (Negative) Urine WBC (Auto) (0-5) /hpf Urine RBC (Auto) (0-4) /hpf U Hyaline Cast (Auto) (0-5) /lpf U Epithel Cells (Auto) (0-5) /lpf Urine Bacteria (Auto) (Negative) Urine Opiates Screen (Neg) Ur Methadone, Qual (Neg) Urine Barbiturates (Neg) Ur Phencyclidine (PCP) (Neg) U Amphetamin/Meth Scrn (Neg) MDMA (Ecstasy) Screen (Neg) U Benzodiazepines Scrn (Neg) Ur Cocaine Metabolite (Neg) U Marijuana (THC) Screen (Neg) Ethyl Alcohol mg/dL < 3.0 (0-3) mg/dl 11/22/19 11/22/19 11/22/19 Range/Units 19:26 19:26 19:26 WBC 8.41 (4.8-10.8) K/uL RBC 3.35 L (4.2-5.4) M/uL Hgb 9.1 L (12.0-16.0) g/dL POC Hgb (12.0-16.0) g/dl Hct 35.1 L (37-47) % POC Hct (37-47) % MCV 104.8 H (80-100) fL MCH 27.2 (25-34) pg MCHC 25.9 L (32-36) g/dL RDW Std Deviation 76.7 H (36.4-46.3) fL RDW Coeff of Don 19.8 H (11.5-14.5) % Plt Count 308 (130-400) K/uL MPV 9.4 (7.4-10.4) fL Immature Gran % (Auto) 1.7 % Neut % (Auto) 65.3 % Lymph % (Auto) 17.4 % [place] % (Auto) 12.8 % Eos % (Auto) 1.1 % Baso % (Auto) 1.7 % Neut # (Auto) 5.50 (1.4-6.5) K/uL Lymph # (Auto) 1.46 (1.2-3.4) K/uL [place] # (Auto) 1.08 H (0.11-0.59) K/uL Eos # (Auto) 0.09 (0-0.5) K/uL Baso # (Auto) 0.14 (0-0.2) K/uL Immature Gran # (Auto) 0.14 H (0.00-0.02) K/uL Absolute Nucleated RBC 0.15 H (0-0) K/uL Nucleated RBC % (auto) 1.8 % Polychromasia 1+ Hypochromasia Present Basophilic Stippling 1+ Anisocytosis Present Macrocytosis Present PT Cancelled INR Cancelled APTT Cancelled PTT Ratio Cancelled POC pH (7.35-7.45) POC pCO2 (35-46) mmHg POC pO2 (80-95) mmHg POC HCO3 (19-24) rissa/L POC Total CO2 (24-31) mmol/L POC Base Excess (-9-1.8) rissa/L POC ABG O2 Sat (90-95) % POC Sodium (135-144) mmol/L Sodium 142 (136-145) mmol/L POC Potassium (3.3-5.0) mmol/L Potassium 5.2 H (3.5-5.1) mmol/L Chloride 100 (98-107) mmol/L Carbon Dioxide 40 H (21-32) mmol/L Anion Gap 2.0 L (3-11) BUN 14 (7-18) mg/dl Creatinine 0.54 L (0.6-1.2) mg/dl Est Cr Clr Drug Dosing 98.0 ml/min Est GFR ( Amer) 118.9 Est GFR (Non-Af Amer) 102.6 BUN/Creatinine Ratio 26.6 H (10-20) Glucose 111 H (70-99) mg/dl Calcium 9.1 (8.5-10.1) mg/dl Magnesium 1.7 L (1.8-2.4) mg/dl Total Bilirubin 0.3 (0.2-1) mg/dl AST 214 H (15-37) U/L ALT 171 H (12-78) U/L Alkaline Phosphatase 291 H (45-117) U/L Ammonia (11-32) umol/L Troponin I (0-0.045) ng/ml NT-Pro-B Natriuret Pep (0-900) pg/ml Total Protein 6.6 (6.4-8.2) gm/dl Albumin 2.5 L (3.4-5.0) gm/dl Globulin 4.1 H (2.5-4.0) gm/dl Albumin/Globulin Ratio 0.6 L (0.9-2) Folate (>5.38) ng/ml Specimen Hemolysis Urine Color Urine Appearance (Clear) Urine pH (4.5-7.5) Ur Specific [place] (1.000-1.030) Urine Protein (Negative) Urine Glucose (UA) (Negative) Urine Ketones (Negative) Urine Blood (Negative) Urine Nitrite (Negative) Urine Bilirubin (Negative) Urine Urobilinogen (Negative) Ur Leukocyte Esterase (Negative) Urine WBC (Auto) (0-5) /hpf Urine RBC (Auto) (0-4) /hpf U Hyaline Cast (Auto) (0-5) /lpf U Epithel Cells (Auto) (0-5) /lpf Urine Bacteria (Auto) (Negative) Urine Opiates Screen (Neg) Ur Methadone, Qual (Neg) Urine Barbiturates (Neg) Ur Phencyclidine (PCP) (Neg) U Amphetamin/Meth Scrn (Neg) MDMA (Ecstasy) Screen (Neg) U Benzodiazepines Scrn (Neg) Ur Cocaine Metabolite (Neg) U Marijuana (THC) Screen (Neg) Ethyl Alcohol mg/dL (0-3) mg/dl 11/22/19 11/22/19 11/22/19 Range/Units 19:26 19:26 19:26 WBC (4.8-10.8) K/uL RBC (4.2-5.4) M/uL Hgb (12.0-16.0) g/dL POC Hgb (12.0-16.0) g/dl Hct (37-47) % POC Hct (37-47) % MCV (80-100) fL MCH (25-34) pg MCHC (32-36) g/dL RDW Std Deviation (36.4-46.3) fL RDW Coeff of Don (11.5-14.5) % Plt Count (130-400) K/uL MPV (7.4-10.4) fL Immature Gran % (Auto) % Neut % (Auto) % Lymph % (Auto) % [place] % (Auto) % Eos % (Auto) % Baso % (Auto) % Neut # (Auto) (1.4-6.5) K/uL Lymph # (Auto) (1.2-3.4) K/uL [place] # (Auto) (0.11-0.59) K/uL Eos # (Auto) (0-0.5) K/uL Baso # (Auto) (0-0.2) K/uL Immature Gran # (Auto) (0.00-0.02) K/uL Absolute Nucleated RBC (0-0) K/uL Nucleated RBC % (auto) % Polychromasia Hypochromasia Basophilic Stippling Anisocytosis Macrocytosis PT INR APTT PTT Ratio POC pH (7.35-7.45) POC pCO2 (35-46) mmHg POC pO2 (80-95) mmHg POC HCO3 (19-24) rissa/L POC Total CO2 (24-31) mmol/L POC Base Excess (-9-1.8) rissa/L POC ABG O2 Sat (90-95) % POC Sodium (135-144) mmol/L Sodium (136-145) mmol/L POC Potassium (3.3-5.0) mmol/L Potassium (3.5-5.1) mmol/L Chloride (98-107) mmol/L Carbon Dioxide (21-32) mmol/L Anion Gap (3-11) BUN (7-18) mg/dl Creatinine (0.6-1.2) mg/dl Est Cr Clr Drug Dosing ml/min Est GFR ( Amer) Est GFR (Non-Af Amer) BUN/Creatinine Ratio (10-20) Glucose (70-99) mg/dl Calcium (8.5-10.1) mg/dl Magnesium (1.8-2.4) mg/dl Total Bilirubin (0.2-1) mg/dl AST (15-37) U/L ALT (12-78) U/L Alkaline Phosphatase (45-117) U/L Ammonia (11-32) umol/L Troponin I (0-0.045) ng/ml NT-Pro-B Natriuret Pep (0-900) pg/ml Total Protein (6.4-8.2) gm/dl Albumin (3.4-5.0) gm/dl Globulin (2.5-4.0) gm/dl Albumin/Globulin Ratio (0.9-2) Folate 21.02 (>5.38) ng/ml Specimen Hemolysis Urine Color Dark Yellow Urine Appearance Clear (Clear) Urine pH 5.5 (4.5-7.5) Ur Specific [place] 1.022 (1.000-1.030) Urine Protein 1+ H (Negative) Urine Glucose (UA) Negative (Negative) Urine Ketones Negative (Negative) Urine Blood Negative (Negative) Urine Nitrite Negative (Negative) Urine Bilirubin Negative (Negative) Urine Urobilinogen Negative (Negative) Ur Leukocyte Esterase Negative (Negative) Urine WBC (Auto) 1-5 (0-5) /hpf Urine RBC (Auto) 0-4 (0-4) /hpf U Hyaline Cast (Auto) 1-5 (0-5) /lpf U Epithel Cells (Auto) 5-10 H (0-5) /lpf Urine Bacteria (Auto) Negative (Negative) Urine Opiates Screen Neg (Neg) Ur Methadone, Qual Neg (Neg) Urine Barbiturates Neg (Neg) Ur Phencyclidine (PCP) Neg (Neg) U Amphetamin/Meth Scrn Neg (Neg) MDMA (Ecstasy) Screen Neg (Neg) U Benzodiazepines Scrn Pos H (Neg) Ur Cocaine Metabolite Neg (Neg) U Marijuana (THC) Screen Pos H (Neg) Ethyl Alcohol mg/dL (0-3) mg/dl 11/22/19 11/22/19 Range/Units 20:02 20:23 WBC (4.8-10.8) K/uL RBC (4.2-5.4) M/uL Hgb (12.0-16.0) g/dL POC Hgb 9.9 L (12.0-16.0) g/dl Hct (37-47) % POC Hct 29 L (37-47) % MCV (80-100) fL MCH (25-34) pg MCHC (32-36) g/dL RDW Std Deviation (36.4-46.3) fL RDW Coeff of Don (11.5-14.5) % Plt Count (130-400) K/uL MPV (7.4-10.4) fL Immature Gran % (Auto) % Neut % (Auto) % Lymph % (Auto) % [place] % (Auto) % Eos % (Auto) % Baso % (Auto) % Neut # (Auto) (1.4-6.5) K/uL Lymph # (Auto) (1.2-3.4) K/uL [place] # (Auto) (0.11-0.59) K/uL Eos # (Auto) (0-0.5) K/uL Baso # (Auto) (0-0.2) K/uL Immature Gran # (Auto) (0.00-0.02) K/uL Absolute Nucleated RBC (0-0) K/uL Nucleated RBC % (auto) % Polychromasia Hypochromasia Basophilic Stippling Anisocytosis Macrocytosis PT 10.3 INR 1.0 APTT 20.3 L PTT Ratio 0.7 POC pH 7.28 L (7.35-7.45) POC pCO2 90 H (35-46) mmHg POC pO2 76 L (80-95) mmHg POC HCO3 42 H (19-24) rissa/L POC Total CO2 > 40 H* (24-31) mmol/L POC Base Excess 15.0 H (-9-1.8) rissa/L POC ABG O2 Sat 92.0 (90-95) % POC Sodium 139 (135-144) mmol/L Sodium (136-145) mmol/L POC Potassium 4.3 (3.3-5.0) mmol/L Potassium (3.5-5.1) mmol/L Chloride (98-107) mmol/L Carbon Dioxide (21-32) mmol/L Anion Gap (3-11) BUN (7-18) mg/dl Creatinine (0.6-1.2) mg/dl Est Cr Clr Drug Dosing ml/min Est GFR ( Amer) Est GFR (Non-Af Amer) BUN/Creatinine Ratio (10-20) Glucose (70-99) mg/dl Calcium (8.5-10.1) mg/dl Magnesium (1.8-2.4) mg/dl Total Bilirubin (0.2-1) mg/dl AST (15-37) U/L ALT (12-78) U/L Alkaline Phosphatase (45-117) U/L Ammonia (11-32) umol/L Troponin I (0-0.045) ng/ml NT-Pro-B Natriuret Pep (0-900) pg/ml Total Protein (6.4-8.2) gm/dl Albumin (3.4-5.0) gm/dl Globulin (2.5-4.0) gm/dl Albumin/Globulin Ratio (0.9-2) Folate (>5.38) ng/ml Specimen Hemolysis Urine Color Urine Appearance (Clear) Urine pH (4.5-7.5) Ur Specific [place] (1.000-1.030) Urine Protein (Negative) Urine Glucose (UA) (Negative) Urine Ketones (Negative) Urine Blood (Negative) Urine Nitrite (Negative) Urine Bilirubin (Negative) Urine Urobilinogen (Negative) Ur Leukocyte Esterase (Negative) Urine WBC (Auto) (0-5) /hpf Urine RBC (Auto) (0-4) /hpf U Hyaline Cast (Auto) (0-5) /lpf U Epithel Cells (Auto) (0-5) /lpf Urine Bacteria (Auto) (Negative) Urine Opiates Screen (Neg) Ur Methadone, Qual (Neg) Urine Barbiturates (Neg) Ur Phencyclidine (PCP) (Neg) U Amphetamin/Meth Scrn (Neg) MDMA (Ecstasy) Screen (Neg) U Benzodiazepines Scrn (Neg) Ur Cocaine Metabolite (Neg) U Marijuana (THC) Screen (Neg) Ethyl Alcohol mg/dL (0-3) mg/dl Diagnostic Findings XR chest 1V portable CLINICAL HISTORY: Dyspnea COMPARISON STUDY: 11/03/2019 FINDINGS: Study is rotated. There is an endotracheal tube at the level of the anirudh. There is mild left lung volume loss and there are left lower lung zone airspace opacities. There is no overt failure.[ IMPRESSION: 1. Endotracheal tube at the level the anirudh. This should be repositioned. 2. Left lung volume loss with left lower lung zone airspace opacities ACT 112: Negative or not required by law. Electronically signed by: Dariel Rangel M.D. 11/22/2019 7:41 PM Dictated: 11/22/191938 Transcribed: 11/22/191938 CT head/brain wo con CLINICAL HISTORY: Acute change in mental status. COMPARISON STUDY: May 10, 2014 TECHNIQUE: Axial CT of the brain is performed from the vertex to the skull base. IV contrast was not administered for this examination. A dose lowering technique was utilized adhering to the principles of ALARA. CT DOSE: FINDINGS: No intra or extra-axial mass lesions are visualized. There is no CT evidence of acute cortical infarction. There is no evidence of midline shift. There is no acute hemorrhage. No calvarial fractures are visualized. There are minor white matter hypodensities likely on a small vessel basis. There is no evidence of pathologic ventricular dilatation. There is no evidence of acute sinusitis IMPRESSION: No acute intracranial findings ACT 112: Negative or not required by law. Electronically signed by: Dariel Rangel M.D. 11/22/2019 7:56 PM Dictated: 11/22/191949 Transcribed: 11/22/191950 - -------- CT ANGIOGRAM OF THE CHEST CLINICAL HISTORY: Shortness of breath. Possible acute pulmonary embolism. COMPARISON STUDY: Chest x-ray dated 11/22/2019 TECHNIQUE: Following the IV administration of 101 mL of Optiray-320, CT angiogram of the thorax was performed from the thoracic inlet to the lung bases utilizing the pulmonary embolus protocol. Images are reviewed in the axial, sagittal, and coronal planes. IV contrast was administered without complication. MIP imaging was performed. A dose lowering technique was utilized adhering to the principles of ALARA. CT DOSE: 1026.63 mGy.cm FINDINGS: There is hepatic steatosis. There is a hiatal hernia. No pathologically enlarged axillary mediastinal or hilar lymph nodes were visualized. There was no evidence of thoracic aortic dilatation. There were no pulmonary artery filling defects to indicate acute pulmonary embolism. No pleural effusions are visualized. There is an endotracheal tube within the right mainstem bronchus orifice. There is left lung volume loss and parenchymal opacity likely secondary to atelectatic change given the endotracheal tube position. There is fluid within the left mainstem bronchus, and proximal left upper lobe and left lower lobe bronchi. Reevaluation of the left lung can be performed on subsequent chest x-rays f ollowing endotracheal tube repositioning. There are multiple scattered calcified granulomas. IMPRESSION: 1. No evidence of acute pulmonary embolism 2. Endotracheal tube positioned with its tip just distal to the level of the right mainstem bronchus orifice. Endotracheal tube repositioning is recommended. This finding was called to Dr. Patterson at 7:52 PM 3. Left lung volume loss. Fluid within the distal left mainstem bronchus and proximal left upper lobe and left lower lobe bronchi. 3. Hepatic steatosis 4. Hiatal hernia ACT 112: Negative or not required by law. Electronically signed by: Dariel Rangel M.D. 11/22/2019 7:59 PM Dictated: 11/22/191950 Transcribed: 11/22/191955 ECG Additional Comments: NSR with sinus arrhythmia at 98bpm, normal axis, KO=317, QRS=86, DCa=772 Code Status & VTE Plan Code Status Full Code VTE Prophylaxis Plan VTE Prophylaxis will be ordered: Yes Critical Care Time Critical Care Time: Yes Total Critical Care Time: 65 PG Care Time/CCT Total # of Minutes Spent Total Time Spent with Patient: Total time spent is greater than 50% in coordination of care (as documented) at patient's floor/unit and/or counseling patient: Critical Care Time: Yes Total Critical Care Time: 65 Coding Level of Care Code None Diagnoses Respiratory failure J96.01; J96.02 Chronicity: acute Respiratory failure complication: hypoxia and hypercapnia Acute alteration in mental status R41.82 Abnormal LFTs R94.5 Elevated troponin R79.89 COPD exacerbation J44.1 Depression F32.89 Depression Type: other depression Alcohol dependence F10.29 Substance use status: unspecified alcohol-induced disorder Tobacco abuse Z72.0 Additional Codes Critical Care Time - Critical Care Time: Yes ([id number]) Time Spent (min) 65 Comment 65 Minutes of Critical Care time spent (1) Alcohol dependence Substance use status: unspecified alcohol-induced disorder Qualified Code(s): F10.29 - Alcohol dependence with unspecified alcohol-induced disorder (2) Depression Depression Type: other depression Qualified Code(s): F32.89 - Other specified depressive episodes (3) Respiratory failure Chronicity: acute Respiratory failure complication: hypoxia and hypercapnia Qualified Code(s): J96.01 - Acute respiratory failure with hypoxia; J96.02 - Acute respiratory failure with hypercapnia
[2019-11-22] MEDS ORDERED: MAGNESIUM SULFATE / D5W 1 GM/100 ML BAG IV STA (22:20)
[2019-11-22] MEDS ORDERED: ICU PROTOCOL FOR HYPERGLYCEMIA PRN (22:20)
[2019-11-22] MEDS ORDERED: FUROSEMIDE 40 MG/4 ML VIAL IV STA (22:20)
[2019-11-22] MEDS ORDERED: ALBUTEROL 0.5% NEB SOLN 2.5 MG/0.5 ML VIAL NEB PRN (22:20)
[2019-11-22] MEDS ORDERED: fentaNYL citrate 100 MCG/2 ML VIAL IV PRN (22:45)
[2019-11-22 23:00] LABS: Base Excess ABG 4.8 mEq/L (-9-1.8); HCO3 ABG 30 mmol/L (19-24); Oxygen Saturation ABG 92.3 % (90-95); PCO2 ABG 46 mmHg (35-46); PO2 ABG 62 mmHg (80-95); pH ABG 7.43 (7.35-7.45)
[2019-11-22] MEDS ORDERED: AZITHROMYCIN 500 MG in DEXTROSE 5% 250 ML IV ONE (23:00)
[2019-11-22 23:01] LABS: Allen Test POS (Pos)
[2019-11-22] MEDS: NORMOSOL-R 1,000 ML IV SCH (23:05)
[2019-11-22] MEDS: MAGNESIUM SULFATE / D5W 1 GM/100 ML BAG IV SCH (23:06)
[2019-11-22] MEDS: TRIMETHOPRIM/POLYMYXIN B OPL SCH (23:06)
[2019-11-22] MEDS: ENOXAPARIN INJ 40 MG/0.4 ML SYR SQ SCH (23:06)
[2019-11-22] MEDS: cefTRIAXone SODIUM 2,000 MG in DEXTROSE 5% 50 ML IV SCH (23:07)
[2019-11-22] MEDS: propofoL 1,000 MG/100 ML VIAL IV SCH (23:08)
[2019-11-22] MEDS: ALBUT/IPRATROP 3MG/0.5MG NEB 3 ML VIAL NEB SCH (23:16)
[2019-11-22 23:17] LABS: Acetaminophen < 2 ug/ml (10-30); Salicylate 2.6 mg/dl (2.8-20)
[2019-11-22 23:28] LABS: Thyroid Stimulating Hormone 2.48 uIu/ml (0.300-4.500)
[2019-11-22 23:50] LABS: iSTAT Allen Test Pass; iSTAT Art Bld Gas pCO2 Correct 51 mmHg (35-46); iSTAT Arterial Blood Gas HCO3 41 meg/L (19-24); iSTAT Arterial Blood Gas pCO2 48 mmHg (35-46); iSTAT Arterial Blood Gas pH 7.54 (7.35-7.45); iSTAT Arterial Blood Gas pO2 49 mmHg (80-95); iSTAT Arterial Blood Gas pO2 C 53; iSTAT Carbon Dioxide > 40 mmol/L (24-31); iSTAT FiO2 50 %; iSTAT Hematocrit 24 % (37-47); iSTAT Hemoglobin 8.2 g/dl (12.0-16.0); iSTAT Potassium 4.5 mmol/L (3.3-5.0); iSTAT Site L Radial; iSTAT Sodium 135 mmol/L (135-144)
[2019-11-23] MEDS ORDERED: methylPREDNISolone 30 MG in SYRINGE 0 ML IV SCH
[2019-11-23] MEDS: MAGNESIUM SULFATE / D5W 1 GM/100 ML BAG IV SCH (00:36)
[2019-11-23] MEDS: ALBUT/IPRATROP 3MG/0.5MG NEB 3 ML VIAL NEB SCH ×6 (02:11→23:31)
[2019-11-23] MEDS: TRIMETHOPRIM/POLYMYXIN B OPL SCH ×8 (04:49→21:48)
[2019-11-23 04:50] LABS: Prothrombin Time 10.4 Seconds (9.0-12.0)
[2019-11-23 05:08] LABS: Anisocytosis Present; Basophils # (auto) 0.01 K/uL (0-0.2); Basophils % (auto) 0.1 %; Hemoglobin 8.5 g/dL (12.0-16.0); Immature Granulocytes # (auto) 0.03 K/uL (0.00-0.02); Immature Granulocytes % (auto) 0.4 %; Lymphocytes # (auto) 0.66 K/uL (1.2-3.4); Lymphocytes % (auto) 8.3 %; Mean Corpuscular Hemoglobin 28.4 pg (25-34); Mean Corpuscular Hgb Conc 28.3 g/dL (32-36); Mean Corpuscular Volume 100.3 fL (80-100); Mean Platelet Volume 9.8 fL (7.4-10.4); Monocytes % (auto) 8.8 %; Neutrophils # (auto) 6.55 K/uL (1.4-6.5); Neutrophils % (auto) 82.4 %; Nucleated RBC # (auto) 0.24 K/uL (0-0); Platelet Count 255 K/uL (130-400); Polychromasia 1+; RDW Standard Deviation 73.5 fL (36.4-46.3); Red Blood Count 2.99 M/uL (4.2-5.4); Stomatocytes 1+; White Blood Count 7.95 K/uL (4.8-10.8)
[2019-11-23 05:32] LABS: Albumin Globulin Ratio 0.5 (0.9-2); Albumin Level 2.1 gm/dl (3.4-5.0); BUN Creatinine Ratio 26.8 (10-20); Bilirubin,Total 0.3 mg/dl (0.2-1); Calcium 8.7 mg/dl (8.5-10.1); Creatinine Clr Calc Pharmacy 88.4 ml/min; Est GFR (African American) 115.5; Est GFR (Non-African American) 99.6; Globulin 4.3 gm/dl (2.5-4.0); Potassium 3.8 mmol/L (3.5-5.1); Total Protein 6.4 gm/dl (6.4-8.2)
[2019-11-23 05:47] LABS: iSTAT Allen Test Pass; iSTAT Art Bld Gas pCO2 Correct 69 mmHg (35-46); iSTAT Art Bld Gas pH Corrected 7.411 (7.35-7.45); iSTAT Arterial Blood Gas HCO3 43 meg/L (19-24); iSTAT Arterial Blood Gas pCO2 62 mmHg (35-46); iSTAT Arterial Blood Gas pH 7.45 (7.35-7.45); iSTAT Arterial Blood Gas pO2 62 mmHg (80-95); iSTAT Arterial Blood Gas pO2 C 73; iSTAT Carbon Dioxide > 40 mmol/L (24-31); iSTAT FiO2 60 %; iSTAT Hematocrit 30 % (37-47); iSTAT Hemoglobin 10.2 g/dl (12.0-16.0); iSTAT Potassium 3.9 mmol/L (3.3-5.0); iSTAT Site L Radial; iSTAT Sodium 138 mmol/L (135-144)
--- NOTE | 2019-11-23 07:55 | Critical Care Consultation ---
Date of Consultation November 23, 2019 Assessment & Plan (1) Respiratory failure: Impression: 59-year-old female with history of COPD and alcohol dependence detoxing at home admitted with altered mental status, hypoxemic and hypercarbic respiratory failure, lower extremity edema, and metabolic alkalosis with respiratory acidosis. 24-hour events: Patient was admitted to the intensive care unit. She is been stable on minimal vent settings. Bronchoscopy was accomplished this morning. There were copious secretions noted throughout the tracheobronchial tree which appeared purulent in nature. The endotracheal tube was repositioned. Recommendations: 1. Acute on chronic hypoxemic and hypercarbic respiratory failure: Multifac torial. The patient had significant volume loss with combination of atelectasis versus pneumonia in the left lung. Unclear if this was related to endotracheal tube placement or potentially atelectasis. Bronchoscopy was completed this morning. We will follow-up chest x-ray and follow-up arterial blood gas. Keep sedated and intubated today given the purulent nature of her secretions and until acid-base status is regulated. History of COPD but does not appear bronchospastic currently. No indication for steroids. Bronchodilators as needed. 2. Metabolic alkalosis: Unclear etiology. The patient was on diuretics at home but appears slightly volume up so contraction alkalosis appears less likely. No history of significant GI losses. Will dose Diamox and follow. Previous blood gases showed PCO2 to be running in the 50 range. Kelsi and Gettleman syndromes appear less likely although still possible. No history of mineralocorticoid excess. She was not hyperkalemic on presentation. 3. Elevated troponin: Suspect supply demand mismatch. Patient did have lower extremity edema prior to presentation. Troponin is decreasing. No obvious EKG changes. Await echocardiogram. No indication for systemic anticoagulation currently. 4. History of alcohol abuse: Continue high-dose thiamine and folate. Will initiate Precedex and try and wean propofol as tolerated. 5. Lower extremity edema: Await echocardiogram. Diamox and follow I's and O's. Will check right upper quadrant ultrasound to ensure there is no portal vein thrombosis causing her lower extremity edema given her history of cirrhosis. 6. Probable pneumonia: Await bronchoscopy cultures. Continue Rocephin and az ithromycin (day #2). 7. Anemia: Possibly due to effects of alcohol. No indication for transfusion currently. Will check iron stores as well as retic count. 8. Abnormal LFTs: Continue to trend at this point time. Likely sequelae of prior alcohol use. Again await ultrasound as well. 9. There was some difficulty passing an orogastric tube yesterday. We will try again this morning. She does have a significant hiatal hernia. Will likely have nutrition consult once we have enteric access for initiation of tube feeding DVT and GI prophylaxis are appropriate and have been initiated. (2) Acute alteration in mental status: (3) Metabolic alkalosis: History of Present Illness Attending Physician: Indy Hernandez DO History of Present Illness Asked by hospitalist service to assist with management of this patient intubated for hypoxemic hypercarbic respiratory failure and metabolic alkalosis. History is obtained from review electronic medical record. The patient is intubated and sedated and unable to provide any history. Patient is a 59-year-old female with a history of COPD and alcoholic cirrhosis. Apparently she was detoxing at home on Librium and has been doing so for the last 10 days. She was brought into the emergency room yesterday with acute confusion. She deteriorated in the emergency room requiring intubation. She received antibiotics for possible pneumonia (Rocephin and azithromycin) and was admitted to the ICU for further care. Blood gas showed a marked metabolic alkalosis with concomitant respiratory acidosis of unclear etiology. Salicylates were negative. Urine tox was positive for benzodiazepines. Overnight in the ICU she is remained sedated on propofol. She has required higher vent settings PEEP of 10 and FiO2 of 60%. Allergies Allergy/AdvReac Type Severity Reaction Status Date / Time RACIEL Inhibitors AdvReac Mild COUGH Verified 07/16/19 20:39 naltrexone [From Vivitrol] AdvReac Hair Verified 07/16/19 20:39 loss/ingrown hairs over body Home Medications Home Medications Medication Instructions Recorded Confirmed Type budesonide-formoterol [Symbicort] 2 puff INHALATION BID 08/13/18 11/22/19 History Combivent Respimat 1 puffs INH QID #4 gm 11/28/18 11/22/19 Rx ergocalciferol (vitamin D2) 50,000 unit PO MONTHLY 11/03/19 11/22/19 History prednisone 5 mg PO DAILY 11/03/19 11/22/19 History chlordiazepoxide HCl See Rx Instructions .ROUTE .COMPLEX 11/22/19 11/22/19 History clonidine 1 patch TOPICAL WK 11/22/19 11/22/19 History spironolactone 25 mg PO BID 11/22/19 11/22/19 History Patient History Medical History Alcohol withdrawal syndrome Alcoholic hepatitis (Chronic) Ascites (Acute) Asthma (Chronic) Constipation (Acute) COPD (chronic obstructive pulmonary disease) (Chronic) Depression Emphysema of lung ETOH abuse (Resolved 08/17/13) Jaundice (Acute) Left lower lobe pneumonia Leukocytosis (Acute 04/21/14) Liver failure, acute (04/21/14) Parapneumonic effusion Pneumonia Sepsis due to Streptococcus pneumoniae Tachycardia (Acute 08/17/13) Surgical History S/P removal of ovarian cyst Family History Father Hypertension Myocardial infarction Social History Preferred Language: [place] Communication Ability: Effective [employer] Insurance Required: No Beliefs That Will Affect Care: None marital status: Current Living Situation: Spouse Other Information That Helps Us Care for You: No Feels Safe at Home: Yes Smoking Status: Current every day smoker Tobacco Type: cigarettes ; Cigarettes Per Day: 20 ; Do You Dip or Chew Tobacco: No ; Second Hand Exposure: Yes ; Hx Alcohol Use: Yes Alcohol type: hard liquor Alcohol Intake Frequency Comment: 500 ml a day Hx Substance Use: Yes substance use type: marijuana Last Used Substance: Days (ago) Review of Systems Review of Systems: Unobtainable due to endotracheal tube Physical Exam Constitutional: + mechanically ventilated intubated and sedated Eyes: Pinpoint pupils bilaterally. Sclera anicteric. ENMT: Endotracheal tube in place Neck: trachea midline, no thyromegaly Respiratory: normal respiratory effort Coarse breath sounds bilaterally without wheezing Cardiovascular: Rate/Rhythm: regular rate Heart Sounds: normal S1 and normal S2 Extremities: + edema Gastrointestinal (Abdomen): normal bowel sounds, soft, nontender, no hepatosplenomegaly Musculoskeletal: Extremities: extremities normal to inspection Skin: no rashes, warm and dry Neurologic: Sedated and intubated Lymphatic: no cervical lymphadenopathy Results & Data Results & Data ([facility]) Vital Signs (Past 12 Hours) Vital Signs Temp Pulse Pulse Resp BP BP Pulse Ox 11/23/19 06:16 92 H 19 92 11/23/19 02:37 79 18 93 11/23/19 00:07 18 11/23/19 00:00 80 11/22/19 23:30 38.3 C H 85 84 L 11/22/19 23:00 78 22 92 11/22/19 22:52 79 102/58 L 92 11/22/19 22:34 78 72/47 L 94 11/22/19 22:32 78 67/42 L 95 11/22/19 22:31 78 94 11/22/19 22:30 77 69/39 L 95 11/22/19 22:26 86 110/71 85 L 11/22/19 22:23 82 88/71 L 88 L 11/22/19 22:21 38.4 C H 81 22 105/64 95 11/22/19 22:20 82 176/149 H 87 L 11/22/19 22:13 81 99/80 L 94 11/22/19 22:10 82 105/64 94 11/22/19 21:35 83 93 11/22/19 21:31 84 93 11/22/19 21:30 83 94/66 L 93 11/22/19 21:25 83 92 11/22/19 21:20 83 92 11/22/19 21:15 85 88/66 L 92 11/22/19 21:10 85 92 11/22/19 21:05 85 92 11/22/19 21:01 87 104/77 91 11/22/19 21:00 88 94 11/22/19 20:55 88 92 11/22/19 20:50 90 92 11/22/19 20:45 90 133/92 94 11/22/19 20:40 88 96 11/22/19 20:38 88 22 96 11/22/19 20:35 87 11/22/19 20:31 88 127/89 92 11/22/19 20:30 91 H 93 11/22/19 20:25 88 87 L 11/22/19 20:20 88 94 11/22/19 20:16 91 H 96 11/22/19 20:15 93 H 170/97 H 97 11/22/19 20:10 92 H 97 11/22/19 20:05 92 H 97 11/22/19 20:01 90 136/87 96 11/22/19 20:00 92 H 94 11/22/19 19:57 97 11/22/19 19:55 93 H 157/73 H 97 11/22/19 19:53 89 L Laboratory Results 11/23/19 04:20 11/23/19 04:20 Initial troponin was 0.26 decreased to 0.22 this morning. BNP elevated 2000 LFTs remarkable for AST and ALT of 147 and 137 respectively decreased from admission. Alk phos down to 254. Ammonia 31 11/22/19 22:49 ABG pH 7.43 ABG pCO2 46 ABG pO2 62 L ABG HCO3 30 H ABG O2 Saturation 92.3 ABG Base Excess 4.[address] angiogram was independently reviewed from last evening and compared to prior CT scans from several months ago. There is marked left shift of the mediastinal structures. Patient appears to have a right mainstem intubation. There is debris filling the left mainstem bronchus distally. A large hiatal hernia is noted. There is some atelectatic/infiltrative process present within the left lung. Emphysematous changes are again noted. No follow-up chest x-ray obtained. Coding Level of Care Code Critical Care 1st 30-74 mins Diagnoses Respiratory failure J96.01; J96.02 Chronicity: acute Respiratory failure complication: hypoxia and hypercapnia Acute alteration in mental status R41.82 Metabolic alkalosis E87.3 Time Spent (min) 50 Comment 50 minutes critical care time managing life-threatening illness exclusive of procedures (1) Respiratory failure Chronicity: acute Respiratory failure complication: hypoxia and hypercapnia Qualified Code(s): J96.01 - Acute respiratory failure with hypoxia; J96.02 - Acute respiratory failure with hypercapnia
[2019-11-23] MEDS ORDERED: STAT IV Infusion **Titration per Protocol STA ×2 (08:07→11:41)
[2019-11-23] MEDS ORDERED: DEXMEDETOMIDINE HCL 200 MCG in SODIUM CHLORIDE 0.9% 48 ML IV SCH (08:15)
--- NOTE | 2019-11-23 08:33 | Procedure Note ---
Procedure Note: Bronchoscopy Procedure Procedure: Fiberoptic bronchoscopy Therapeutic aspiration of secretions, initial Sedation: Patient was maintained on a propofol infusion Provider: Gabino Noland MD Consent: Procedure was emergent. Patient unable to sign consent due to being intubated and on the mechanical ventilator. No family immediately available. Procedure: Patient was in the intensive care unit intubated and on the mechanical ventilator. She was placed on 100% FiO2. Appropriate radiographic studies had been reviewed prior to the procedure. Standard monitoring was applied. The bronchoscope was advanced through the existing endotracheal tube via the adapter. The tube was sounded and found to be at the junction of the main anirudh. The tube was withdrawn and an additional 2 cm and bronchoscopy was completed. There were copious mucopurulent secretions in the trachea and emanating from the bilateral lower lobes. These were aspirated free and collected with saline lavage for microbiologic analysis. Once the secretions were cleared, is systemic inspection of the airways were conducted. The main anirudh was sharp. The right-sided airways were patent with erythematous mucosa. Left-sided airways also patent with some erythematous mucosa but no evidence of endobronchial lesions. The bronchoscope was then removed from the airways. The patient tolerated the procedure well without obvious complication. Patient will be maintained in the intensive care unit on the mechanical ventilator for now Impression: 1. Endotracheal tube at the main anirudh, withdrawn 2 cm. 2. Copious mucopurulent secretions in the bilateral mainstem bronchi extending into the lower lobes. Status post saline lavage. Await microbiologic analysis.
[2019-11-23] MEDS: acetaZOLAMIDE 500 MG in SYRINGE 0 ML IV SCH (08:34)
[2019-11-23] MEDS: THIAMINE HCL 200 MG in SODIUM CHLORIDE 0.9% 50 ML IV SCH ×2 (08:34→21:48)
[2019-11-23] MEDS ORDERED: THIAMINE HCL 100 MG in SYRINGE 9 ML IV SCH (09:00)
[2019-11-23 09:26] LABS: Ferritin 174.8 ng/ml (8-388)
[2019-11-23 09:31] LABS: Reticulocytes # 0.15 10^6/uL (0.02-0.10)
--- NOTE | 2019-11-23 10:17 | Hospitalist Progress Note ---
Date of Service November 23, 2019 Assessment & Plan (1) Acute on chronic respiratory failure with hypoxia and hypercapnia: Lakeisha is a 59yo female with history of O2 dependent COPD, EtOH abuse currently undergoing outpatient detoxification who presented with 1-2 days of SOB, confusion, slurred speech. Patient became unresponsive and hypoxic in the ER requiring urgent intubation for hypoxic/hypercarbic respiratory failure. ABG with acute on chronic respiratory acidosis. On admission elevated troponin at 0.267 and BNP at 2004, elevated AST/ALT/AP. CXR with fluid filled left bronchus and LLL airspace opacity Acute Hypoxic, Hypercarbic Respiratory Failure 2/2 PNA vs AoC COPD w/ baseline O2 dependence - XR shows LLL opacity and fluid filled bronchus. Bronch performed 11/22, cultures pending - BC x2 pending. Procal pending - Empiric ceftriaxone 2g daily + Azithromycin 250mg daily (started 11/21 just before midnight) - Intubated. Vent @ rr18/TV400/PEEP10/FiO2 0.6 ACVC 400/22/50/5. ABG with primary metabolic alkalosis with secondary respiratory acidosis (7.45/62/62/43/40) -Ventilator management per ICU with daily weaning trials -Solumedrol 30mg IV q 8 -DuoNeb q 4 hours Sedation/Analgesia - Patient intubated - Propofol d/kae 2/2 hypotension. Pressodex initiated, titrate per protocol - Ativan 1mg IV YASMANI started to cover for EtOH withdrawal patient intubated, sedated. History of EtOH abuse currently undergoing outpatient detox with Librium. History of depression -Admit to MICU -Fentanyl gtt for pain control -Continue thiamine daily Elevated troponin/BNP - Trop Downtrending, peaked at 0.267. Suspect demand in setting of respiratory failure - BNP 2k, ECHO pending for ?CHF - Lasix held for metabolic alkalosis - EKG nsr with no ST changes - MAP 55-65 percent this AM EtOH Abuse - Patient has be detoxifying at home with scheduled Librium since November 12 - Propofol d.kae, ativan 1mg IV YASMANI, follow RASS scoreing Q4H History of ETOH abuse with hepatitis/cirrhosis/transaminitis - Transaminitis to low 100s on admis. - Mild abdominal ascities on exam - Trend LFTs, downtrending at this time - INR 1.0 - Lasix/jeffery held - Ab US pending, eval for venous thrombosis Hyperkalemia - Resolved - Edmondson in place - Cr normal - BMP daily Macrocytic Anemia 2/2 EtOH use - Patient with stable macrocytic anemia, ECX=328.8. - Folate level normal at 21.02 - B12 wnl - Folic acid 1mg po daily FEN/GI: NPO, lasix held. NG/OG difficulty placement 2/2 hiatal hernia, to be reattempted this AM DVT Ppx: Lovenox daily Ulcer PPx: Protonix 40mg daily Code - Full Code Dispo - MICU (2) Metabolic alkalosis: (3) Elevated troponin: (4) Acute alteration in mental status: (5) Abnormal LFTs: (6) Hiatal hernia: (7) Tobacco abuse: (8) Pancytopenia: (9) COPD exacerbation: (10) Alcohol dependence: (11) Emphysema of lung: (12) Depression: (13) Sleep disturbance: (14) ADHD: (15) Pneumonia: (16) Left lower lobe pneumonia: (17) Severe sepsis: Admission and Anticipated Discharge Date Admission Date: November 22, 2019 Supervising Physician Co-Signing Physician Notes I also saw the patient with the resident physician and confirmed lombardo portions of the history and examination. Agree with impression and plan as noted above. Upon examination this morning, she remains sedated and ventilated. Acute on chronic hypoxemic/hypercarbic respiratory failure History of alcohol abuse Metabolic alkalosis, uncertain etiology Question pneumonia Anemia Transaminitis Patient remains under care of ICU team We will continue to follow daily Subjective Limited by sediation, ETT. Pt with mixed primary metabolic alkalosis with resp alkalosis, vent per ICU/resp Propol to be switched to pressodex 2/2 hypotension ECHO pending Review of Systems Review of Systems: Unobtainable due to endotracheal tube Physical Exam Physical Exam: General: Intubated, sedated. Does not arouse to verbal/tactcile stimuli. HEENT: Atraumatic, normocephalic. ETT in place. PERLAA. Pulm: LLL diminished, breath sounds appreciated bilaterally. [facility]. Cardiac: RRR, -mrg. Radial pulses intact and symmetrical. Abdominal: Softly distended, ?mild asicites/dullness to percussion. Ext: Warm, dry. PT intact bilaterally. Results & Data Results & Data ([facility]) Vital Signs (Past 12 Hours) Vital Signs Temp Pulse Pulse Resp BP BP Pulse Ox 11/23/19 09:14 39.2 C H 90 87/50 L 92 11/23/19 09:00 39.2 C H 92 H 93/53 L 89 L 11/23/19 08:44 39.2 C H 90 94/55 L 91 11/23/19 08:29 39.1 C H 94 H 76/58 L 89 L 11/23/19 08:14 39.1 C H 90 97/59 L 92 11/23/19 08:12 39.1 C H 82 95/49 L 95 11/23/19 08:09 39.1 C H 87 88/43 L 97 11/23/19 08:06 39.1 C H 88 96/57 L 98 11/23/19 08:04 39.1 C H 96 H 121/78 96 11/23/19 07:54 39.0 C H 89 97/58 L 90 11/23/19 07:38 39.0 C H 87 96/51 L 90 11/23/19 07:23 38.9 C H 82 113/63 91 11/23/19 07:10 83 18 92 11/23/19 07:08 38.9 C H 83 83/49 L 92 11/23/19 06:16 92 H 19 92 11/23/19 02:37 79 18 93 11/23/19 00:07 18 11/23/19 00:00 80 11/22/19 23:30 38.3 C H 85 84 L 11/22/19 23:00 78 22 92 11/22/19 22:52 79 102/58 L 92 11/22/19 22:34 78 72/47 L 94 11/22/19 22:32 78 67/42 L 95 11/22/19 22:31 78 94 11/22/19 22:30 77 69/39 L 95 11/22/19 22:26 86 110/71 85 L 11/22/19 22:23 82 88/71 L 88 L 11/22/19 22:21 38.4 C H 81 22 105/64 95 11/22/19 22:20 82 176/149 H 87 L 11/22/19 22:13 81 99/80 L 94 11/22/19 22:10 82 105/64 94 Resident Activity Tracking Resident Involvement: Resident Care Provided Care Provided: Adult Hospital Medicine (1) Alcohol dependence Substance use status: unspecified alcohol-induced disorder Qualified Code(s): F10.29 - Alcohol dependence with unspecified alcohol-induced disorder (2) Depression Depression Type: other depression Qualified Code(s): F32.89 - Other specified depressive episodes (3) Left lower lobe pneumonia Pneumonia type: due to unspecified organism Qualified Code(s): J18.1 - Lobar pneumonia, unspecified organism (4) Pneumonia Laterality: left Lung location: lower lobe of lung Pneumonia type: due to unspecified organism Qualified Code(s): J18.1 - Lobar pneumonia, unspecified organism
[2019-11-23] MEDS ORDERED: FENTANYL BOLUS FROM BAG IV PRN (11:41)
[2019-11-23] MEDS ORDERED: fentaNYL DRIP 1,250 MCG/250 ML BAG IV SCH (11:45)
[2019-11-23] MEDS: NORMOSOL-R 1,000 ML IV SCH ×2 (11:50→20:24)
[2019-11-23] MEDS: propofoL 1,000 MG/100 ML VIAL IV SCH (12:00)
[2019-11-23] MEDS ORDERED: NORMOSOL-R 1,000 ML IV ONE (12:51)
[2019-11-23] MEDS: ALBUMIN 25% 50 ML IV SCH ×4 (12:58→15:28)
--- NOTE | 2019-11-23 13:11 | XRay Report ---
KUB CLINICAL HISTORY: Enteric tube placement. FINDINGS: An AP, portable, supine view of the lower chest and upper abdomen is compared to study date d 05/10/2014 and correlated with abdominal CT dated 08/13/2018. An enteric tube has been placed. The ti p projects below the diaphragm over the distal stomach. There is no radiographic evidence of bowel ob struction. Moderate fecal retention is noted in the visualized right colon. There is no evidence of i ntraperitoneal free air on this supine image. Airspace consolidation is noted at the left lung base. The bony structures appear intact. IMPRESSION: An enteric tube has been placed as above. Electronically signed by: Alexis Angel M.D. 11/23/2019 1:10 PM
--- NOTE | 2019-11-23 13:29 | XCELERA ---
[id number] \\[id number]
[2019-11-23] MEDS: LANSOPRAZOLE 30 MG SOLTAB NG SCH (13:40)
[2019-11-23] MEDS: FOLIC ACID 1 MG TAB PO SCH (13:40)
[2019-11-23] MEDS: LORazepam 1 MG TAB PO SCH ×2 (13:40→17:42)
--- NOTE | 2019-11-23 13:59 | Ultrasound Report ---
US duplex portal hepatic veins CLINICAL HISTORY: CHECK FOR PORTAL VEIN THROMBOSIS cirrhosis COMPARISON STUDY: August 2013 FINDINGS: The portal vein is patent with normal directional flow. The hepatic veins are patent with n ormal directional flow. IMPRESSION: No evidence of portal or hepatic vein thrombosis. ACT 112: Negative or not required by law. Electronically signed by: Dariel Rangel M.D. 11/23/2019 1:58 PM
--- NOTE | 2019-11-23 14:09 | Ultrasound Report ---
US liver CLINICAL HISTORY: cirrhosis, portal vein thrombosis? COMPARISON STUDY: No previous studies for comparison. FINDINGS: Fatty infiltration of the liver. Normal gallbladder. Common bile duct 5 mm. Pancreas poorly seen. Right kidney is negative for hydronephrosis. IMPRESSION: 1. Fatty infiltration of liver. 2. Otherwise negative study. ACT 112: Negative or not required by law. The above report was generated using voice recognition software. It may contain grammatical, syntax or spelling errors. Electronically signed by: Danny Aguillon M.D. 11/23/2019 2:08 PM
--- NOTE | 2019-11-23 14:16 | Electrocardiogram Report ---
Test Reason : Blood Pressure : / mmHG Vent. Rate : 098 BPM Atrial Rate : 098 BPM P-R Int : 146 ms QRS Dur : 086 ms QT Int : 322 ms P-R-T Axes : 077 070 038 degrees QTc Int : 411 ms Normal sinus rhythm with sinus arrhythmia Normal ECG When compared with ECG of 03-NOV-2019 21:14, Nonspecific T wave abnormality now evident in Inferior leads Confirmed by Maksim Blanco ([id number]) on 11/23/2019 2:16:23 PM Referred By: REFERRED SELF Confirmed By:Ed Blanco
[2019-11-23] MEDS: IMPACT LIQD 1.0 CAL 1,000 ML BAG OG SCH (15:34)
--- NOTE | 2019-11-23 16:49 | Procedure Note ---
Procedure Note Date of Service November 23, 2019 ARTERIAL LINE PROCEDURE NOTE: Procedure: Arterial Line Placement Provider: Gabino Noland MD Indication: Borderline hypotension requiring invasive monitoring Procedure was emergent. Patient intubated and sedated and unable to provide consent. No family immediately available A time-out was completed verifying correct patient, procedure, site, positioning, and implant(s) or special equipment if applicable. Allens test was performed to ensure adequate perfusion. Patients left wrist was prepped and draped in the usual sterile fashion. Ultrasound guidance was used to aid needle placement. A 20g Arrow arterial line was introduced into the left radial artery. Catheter was threaded, and the needle was removed with appropriate blood return. Good waveform was observed. The patient tolerated the procedure well. Blood Loss: Minimal Complications: None Coding CPT Codes Tubes, Drains, and Vasc Access - Tubes, Drains, and Vasc Access: [id number] Insertion Catheter, Artery ([id number]) [facility] [place] Procedure Codes (Charges) Tubes, Drains, and Vasc Access Procedure 1: Tubes, Drains, and Vasc Access: [id number] Insertion Catheter, Artery
[2019-11-23] MEDS: MIDAZOLAM HCL 1 MG/ML 2ML VIAL IV PRN (17:56)
[2019-11-23] MEDS ORDERED: fentaNYL citrate 100 MCG/2 ML VIAL IV PRN (19:31)
[2019-11-23] MEDS: AZITHROMYCIN 250 MG in DEXTROSE 5% 250 ML IV SCH (21:47)
[2019-11-23] MEDS: cefTRIAXone SODIUM 2,000 MG in DEXTROSE 5% 50 ML IV SCH (21:47)
[2019-11-23] MEDS: ENOXAPARIN INJ 40 MG/0.4 ML SYR SQ SCH (21:49)
[2019-11-24] MEDS: ALBUT/IPRATROP 3MG/0.5MG NEB 3 ML VIAL NEB SCH ×6 (02:24→22:51)
[2019-11-24] MEDS: TRIMETHOPRIM/POLYMYXIN B OPL SCH ×8 (02:59→23:29)
[2019-11-24 05:10] LABS: Hematocrit (blood only) 23.5 % (37-47); Hemoglobin 6.8 g/dL (12.0-16.0); Mean Corpuscular Hemoglobin 28.1 pg (25-34); Mean Corpuscular Hgb Conc 28.9 g/dL (32-36); Mean Corpuscular Volume 97.1 fL (80-100); Mean Platelet Volume 8.9 fL (7.4-10.4); Nucleated RBC # (auto) 0.02 K/uL (0-0); Nucleated RBC % (auto) 0.3 %; Platelet Count 227 K/uL (130-400); RDW Standard Deviation 74.5 fL (36.4-46.3); Red Blood Count 2.42 M/uL (4.2-5.4); White Blood Count 8.13 K/uL (4.8-10.8)
[2019-11-24] MEDS ORDERED: SODIUM CHLORIDE 0.9% 250 ML IV PRN (05:19)
[2019-11-24 05:32] LABS: iSTAT Art Bld Gas pCO2 Correct 55 mmHg (35-46); iSTAT Art Bld Gas pH Corrected 7.412 (7.35-7.45); iSTAT Arterial Blood Gas HCO3 35 meg/L (19-24); iSTAT Arterial Blood Gas pCO2 52 mmHg (35-46); iSTAT Arterial Blood Gas pH 7.43 (7.35-7.45); iSTAT Arterial Blood Gas pO2 83 mmHg (80-95); iSTAT Arterial Blood Gas pO2 C 92; iSTAT Carbon Dioxide 36 mmol/L (24-31); iSTAT FiO2 55 %; iSTAT Hematocrit 22 % (37-47); iSTAT Hemoglobin 7.5 g/dl (12.0-16.0); iSTAT Potassium 3.1 mmol/L (3.3-5.0); iSTAT Site Art Line; iSTAT Sodium 137 mmol/L (135-144)
[2019-11-24 05:41] LABS: Anisocytosis Present; Basophils # (auto) 0.02 K/uL (0-0.2); Basophils % (auto) 0.2 %; Eosinophils # (auto) 0.02 K/uL (0-0.5); Eosinophils % (auto) 0.2 %; Immature Granulocytes # (auto) 0.04 K/uL (0.00-0.02); Immature Granulocytes % (auto) 0.5 %; Lymphocytes # (auto) 0.82 K/uL (1.2-3.4); Lymphocytes % (auto) 10.1 %; Monocytes # (auto) 0.85 K/uL (0.11-0.59); Monocytes % (auto) 10.5 %; Neutrophils # (auto) 6.38 K/uL (1.4-6.5); Neutrophils % (auto) 78.5 %; Polychromasia 1+
[2019-11-24 05:45] LABS: Albumin Globulin Ratio 0.7 (0.9-2); Albumin Level 2.4 gm/dl (3.4-5.0); BUN Creatinine Ratio 37.3 (10-20); Bilirubin,Total 0.3 mg/dl (0.2-1); Calcium 7.3 mg/dl (8.5-10.1); Creatinine Clr Calc Pharmacy 114.6 ml/min; Est GFR (African American) 126.2; Est GFR (Non-African American) 108.9; Globulin 3.4 gm/dl (2.5-4.0); Magnesium 2.1 mg/dl (1.8-2.4); Phosphorus 2.7 mg/dl (2.5-4.9); Potassium 2.9 mmol/L (3.5-5.1); Total Protein 5.8 gm/dl (6.4-8.2)
[2019-11-24] MEDS ORDERED: POTASSIUM PHOS 3 MMOL/1 ML INFUSION IV STA (05:48)
[2019-11-24] MEDS ORDERED: POTASSIUM CHLORIDE 20 MEQ/15 ML UDC PO STA (05:48)
[2019-11-24] MEDS ORDERED: CALCIUM GLUCONATE 10% 1,000 MG in SODIUM CHLORIDE 0.9% 50 ML IV STA (05:56)
[2019-11-24] MEDS: POTASSIUM CHLORIDE / WTR 10 MEQ/100 ML PLCT IV SCH ×2 (06:06→07:58)
[2019-11-24] MEDS ORDERED: POTASSIUM PHOSPHATE 15 MMOL in SODIUM CHLORIDE 0.9% 250 ML IV ONE (06:30)
--- NOTE | 2019-11-24 07:07 | XRay Report ---
XR chest 1V portable CLINICAL HISTORY: resp failure dyspnea COMPARISON STUDY: 11/22/2019 FINDINGS: Endotracheal tube 4 cm above the anirudh. Increased consolidative and/or fusion type change left lung base. Lungs otherwise appear clear. Right hemidiaphragm is smooth. IMPRESSION: 1. Endotracheal tube 4 cm above the anirudh. 2. Progressive consolidative and/or fusion type change left lung base. ACT 112: Negative or not required by law. The above report was generated using voice recognition software. It may contain grammatical, syntax or spelling errors. Electronically signed by: Danny Aguillon M.D. 11/24/2019 7:06 AM
[2019-11-24] MEDS: MIDAZOLAM HCL 1 MG/ML 2ML VIAL IV PRN ×5 (07:57→22:42)
[2019-11-24] MEDS: NORMOSOL-R 1,000 ML IV SCH ×2 (07:58→22:20)
[2019-11-24] MEDS: acetaZOLAMIDE 500 MG in SYRINGE 0 ML IV SCH (07:58)
[2019-11-24] MEDS: THIAMINE HCL 200 MG in SODIUM CHLORIDE 0.9% 50 ML IV SCH ×2 (08:00→19:37)
[2019-11-24] MEDS: LANSOPRAZOLE 30 MG SOLTAB NG SCH (08:00)
[2019-11-24] MEDS: FOLIC ACID 1 MG TAB PO SCH (08:00)
--- NOTE | 2019-11-24 09:06 | Hospitalist Progress Note ---
Date of Service November 24, 2019 Assessment & Plan (1) Acute on chronic respiratory failure with hypoxia and hypercapnia: Lakeisha is a 59yo female with history of O2 dependent COPD, EtOH abuse currently undergoing outpatient detoxification who presented with 1-2 days of SOB, confusion, slurred speech. Patient became unresponsive and hypoxic in the ER requiring urgent intubation for hypoxic/hypercarbic respiratory failure. ABG with acute on chronic respiratory acidosis. On admission elevated troponin at 0.267 and BNP at 2004, elevated AST/ALT/AP. CXR with fluid filled left bronchus and LLL airspace opacity Acute Hypoxic, Hypercarbic Respiratory Failure 2/2 PNA vs AoC COPD w/ baseline O2 dependence - Pt continues to be febrile overnight. - XR shows LLL opacity and fluid filled bronchus. Bronch performed 11/22, cultures pending - BC x2 pending. - Empiric ceftriaxone 2g daily + Azithromycin 250mg daily (started 11/21 just before midnight) - Intubated. Vent @ rr18/TV400/PEEP10/FiO2 0.55 ACVC - ABG previously with primary metabolic alkalosis with secondary respiratory acidosis (7.45/62/62/43/40), repeat today shows primary metabolic alkalosis, w/ appropriately compensated respiratory acidosis -Ventilator management per ICU. Anticipate FiO2 wean, then PEEP wean, then SBT if doing well -Solumedrol 30mg IV q 8 -DuoNeb q 4 hours Macrocytic Anemia 2/2 EtOH use - Patient with macrocytic anemia, MCV=>100 on admit - Hgb decreased, 6.8g/dL overnight with no active bleeding. Recheck 7.5g/dL, transfusion held for threshold of 7.0. - Folate level normal at 21.02 - B12 wnl - Folic acid 1mg po daily Sedation/Analgesia - Patient intubated - Propofol d/kae 2/2 hypotension. Pressodex off since midnight. Versed and fentanyl pushes PRN for pain/agitation. - CAM negative this morning. Pt responding appropriately to quesitons, able to follow 2 step commands. - Ativan 1mg IV YASMANI started to cover for EtOH withdrawal patient intubated, sedated. History of EtOH abuse currently undergoing outpatient detox with Librium. History of depression -Admit to MICU -Fentanyl gtt for pain control -Continue thiamine daily Elevated troponin/BNP - Trop Downtrending, peaked at 0.267. Suspect demand in setting of respiratory failure - BNP 2k, ECHO hyperdynamic with no akinesis/hypokinesis - Lasix held for metabolic alkalosis - EKG nsr with no ST changes - MAP greatly improved today. Not requiring pressors. EtOH Abuse - Patient has be detoxifying at home with scheduled Librium since November 12 - Propofol d.kae, ativan 1mg IV YASMANI, follow RASS scoreing Q4H History of ETOH abuse with hepatitis/cirrhosis/transaminitis - Transaminitis to low 100s on admis. - Mild abdominal ascities on exam - Trend LFTs, downtrending at this time - INR 1.0 - Lasix/jeffery held - Ab US pending, eval for venous thrombosis Electrolyte Dereangement - Hyperkalemic on admit, pt hypokalemic today - ICU repletion protocol. - Edmondson in place - Cr normal - BMP daily FEN/GI: NPO, lasix held. NG/OG difficulty placement 2/2 hiatal hernia, to be reattempted this AM DVT Ppx: Lovenox daily Ulcer PPx: Protonix 40mg daily Code - Full Code Dispo - MICU Admission and Anticipated Discharge Date Admission Date: November 22, 2019 Supervising Physician Co-Signing Physician Notes I also saw the patient concur with the resident physician and confirmed lombardo portions of the history physical examination. I agree with the impression and plan as noted above. Since the initial that was completed, subsequent hemoglobin less than 7 so we consented the patient for 1 unit of packed red blood cells this afternoon. She continues with a slow wean -FiO2 down to 40 - hopefully be able to extubate tomorrow morning. Subjective Seen at bedside this morning. Pt with ETT in place, but able to follow 1 and 2 step commands. Endorses throat and breathing discomfort due to the ETT, denies CP. Review of Systems Review of Systems: Unobtainable due to endotracheal tube Physical Exam Physical Exam: General: Intubated, aroses to verbal stimuli. Blinks eyes/squeezes fingers to reply to questions and follows 2 step commands (squeeze my right then left hand). HEENT: Atraumatic, normocephalic. ETT in place. PERLAA. Pulm: LLL diminished, breath sounds appreciated bilaterally. On mech vent AC/VC. Cardiac: RRR, -mrg. Radial pulses intact and symmetrical. Abdominal: Softly distended Ext: Warm, dry. PT intact bilaterally. Results & Data Results & Data ([facility]) Vital Signs (Past 12 Hours) Vital Signs Temp Pulse Resp Pulse Ox 11/24/19 07:15 84 18 97 11/24/19 05:08 83 20 97 11/24/19 02:15 84 22 97 11/24/19 00:30 38.2 C H 85 94 11/24/19 00:00 38.1 C H 86 96 11/23/19 23:30 38.1 C H 88 93 11/23/19 23:09 80 20 98 11/23/19 23:00 38.1 C H 79 98 11/23/19 22:30 38.0 C H 80 96 11/23/19 22:20 79 11/23/19 22:00 37.9 C H 80 96 11/23/19 21:30 38.0 C H 81 96 11/23/19 21:00 37.9 C H 78 95 Resident Activity Tracking Resident Involvement: Resident Care Provided Care Provided: Adult Hospital Medicine
[2019-11-24] MEDS ORDERED: PHARMACY GLYCEMIC MGMT CONSULT PRN (10:21)
[2019-11-24] MEDS ORDERED: INSULIN GLARGINE SOLOSTAR 100 UNITS/ML 3 ML PEN SC ONE (10:30)
--- NOTE | 2019-11-24 11:13 | Pharmacy Report ---
Pharmacy Glycemic Short Note 2 - Date of Service November 24, 2019 - Glycemic Short BSG Results (Last 24 hours): 11/23/19 11/23/19 11/24/19 11:56 18:00 00:35 Glucose POC Glucose 135 H 142 H 191 H 11/24/19 04:26 Glucose 119 H POC Glucose OUTPATIENT ANTIDIABETIC REGIMEN: * n/a - no prior dx of dm * A1c = ? ASSESSMENT: * Patient admitted to ICU for acute hypoxic, hypercarbic resp failure in the setting of pneumonia * Lakeisha is currently intubated, receiving IV abx therapy, tube feeds running at this time and near goal * Patient met criteria to begin basal/bolus SQ regimen per ICU protocol last evening. * Will initiate basal/bolus regimen at this time based upon patient weight and "moderate" stress level. Lantus doses will be scaled to lessen risk of hypoglycemia. PLAN FOR INPATIENT GLYCEMIC CONTROL: * Check A1c with next lab draw * Basal insulin * Lantus 13 units SQ x 1 now, then BID per scale 0-18 units depending on BSG (please refer to EMR) * Bolus insulin * NovoLog per scale Q4hrs * Goal Range: Low 110 mg/dL - High 160 mg/dL * Correction Factor: 30 mg/dL/unit * Nutritional / Prandial insulin per carb ratio of 1 unit per 10 grams CHO consumed
--- NOTE | 2019-11-24 12:05 | Critical Care Progress Note ---
Date of Service November 24, 2019 Assessment & Plan (1) Respiratory failure: Impression: 59-year-old female with history of COPD and alcohol dependence detoxing at home admitted with altered mental status, hypoxemic and hypercarbic respiratory failure, lower extremity edema, and metabolic alkalosis with respiratory acidosis. 24-hour events: Arterial line was placed in the left wrist due to concerns about potential hypotension. She received 1 L of crystalloid and some albumin last night with improvement in her blood pressure. Vasopressor agents were not required. Recommendations: 1. Acute on chronic hypoxemic and hypercarbic respiratory failure: Multifactorial. Suspect pneumonia. Await cultures. We will work on trying to wean FiO2 down to 0.4 and if she does well will then work on weaning PEEP. Once PEEP is down below 8 and FiO2 of 0.4, can consider SBT trials. Her neurological issues appear to have resolved. She has a history of obstructive lung disease but does not appear bronchospastic and there is no indication for systemic steroids currently. 2. Metabolic alkalosis: Unclear etiology. The patient was on diuretics at home but appears slightly volume up so contraction alkalosis appears less likely. No history of significant GI losses. Continue Diamox for an additional day, bicarb is decreasing. Previous blood gases showed PCO2 to be running in the 50 range. Kelsi and Gettleman syndromes appear less likely although still possible. No history of mineralocorticoid excess. She was not hyperkalemic on presentation. Improving chemistry. 3. Elevated troponin: Suspect supply demand mismatch. Patient did have lower extremity edema prior to presentation. Troponin is decreasing. No obvious EKG changes. With normal echocardiogram, suspect this was supply demand mismatch. No indication for serial imaging at this point time. Continue to follow clinically 4. History of alcohol abuse: Continue high-dose thiamine and folate. Patient became significantly hypotensive with Precedex. Continue judicious boluses of fentanyl and Versed for now. 5. Lower extremity edema: Eechocardiogram unrevealing. Diamox and follow I's and O's. Right upper quadrant ultrasound performed and demonstrated fatty infiltration of the liver but there was no comment on portal vein patency. May need to do a limited vascular study to evaluate for portal vein thrombosis 6. Probable pneumonia: Await bronchoscopy cultures, negative to date. Continue Rocephin and azithromycin (day #3). 7. Anemia: Possibly due to effects of alcohol. Reticulocyte count and ferritin were normal however total iron was low. She had a spurious decreased hemoglobin and hematocrit last night but did not require transfusion. Continue to follow for now. I do not see any signs of active bleeding currently. 8. Abnormal LFTs: Continue to trend at this point time. Likely sequelae of prior alcohol use. Again await ultrasound as well. 9. Orogastric tube is in place and tube feedings have been initiated and a dvance to goal. Continue for now until ready to wean from ventilator DVT and GI prophylaxis are appropriate and have been initiated. (2) Acute alteration in mental status: (3) Metabolic alkalosis: Admission and Anticipated Discharge Date Admission Date: November 22, 2019 Subjective Patient remains intubated but mental status is much improved. When sedation is lightened she is able to follow commands and move all 4 extremities. Denies any complaints. Working on weaning vent settings. Review of Systems Review of Systems: Unobtainable due to endotracheal tube Physical Exam Constitutional: + mechanically ventilated Neck: trachea midline, no thyromegaly Respiratory: normal respiratory effort Cardiovascular: Rate/Rhythm: regular rate Heart Sounds: normal S1 and normal S2 Extremities: + edema Gastrointestinal (Abdomen): normal bowel sounds, soft, nontender, no hepatosplenomegaly Musculoskeletal: Extremities: extremities normal to inspection Skin: no rashes, warm and dry Lymphatic: no cervical lymphadenopathy Results & Data Results & Data ([facility]) Vital Signs (Past 12 Hours) Vital Signs Temp Pulse Resp Pulse Ox 11/24/19 11:00 38.7 C H 89 93 11/24/19 10:46 86 19 94 11/24/19 10:00 38.6 C H 86 94 11/24/19 09:00 38.7 C H 90 99 11/24/19 08:00 38.7 C H 90 94 11/24/19 07:15 84 18 97 11/24/19 07:00 38.7 C H 84 98 11/24/19 05:08 83 20 97 11/24/19 02:15 84 22 97 11/24/19 00:30 38.2 C H 85 94 11/24/19 00:00 38.1 C H 86 96 Laboratory Results 11/24/19 04:26 11/24/19 04:26 Respiratory cultures have shown no growth to date Diagnostic Findings Chest x-ray from today was independently reviewed. It demonstrates better aeration on the left with improvement in the mediastinal shift. There is some left lower lobe atelectasis. Tubes and support lines in good position. Echocardiogram demonstrated an ejection fraction of 65 to 70% with grade 1 diastolic dysfunction. Hyperdynamic left ventricle. No wall motion abnormalities. Right ventricle was borderline dilated with normal systolic function. Atrial sizes were normal. No significant valvular pathology. No evidence of pulmonary hypertension. Coding Level of Care Code 70604 Subseq Hosp Care Lvl 3 Diagnoses Respiratory failure J96.01; J96.02 Chronicity: acute Respiratory failure complication: hypoxia and hypercapnia Acute alteration in mental status R41.82 Metabolic alkalosis E87.3 (1) Respiratory failure Chronicity: acute Respiratory failure complication: hypoxia and hypercapnia Qualified Code(s): J96.01 - Acute respiratory failure with hypoxia; J96.02 - Acute respiratory failure with hypercapnia
[2019-11-24] MEDS: fentaNYL citrate 100 MCG/2 ML VIAL IV PRN ×2 (12:23→19:14)
[2019-11-24] MEDS: ACETAMINOPHEN SOLN 500 MG/15.62 ML UDP OG PRN (12:24)
[2019-11-24] MEDS: INSULIN ASPART 100 UNITS/ML 3 ML PEN SC SCH ×4 (12:27→23:14)
[2019-11-24 12:41] LABS: Estimated Average Glucose 85 mg/dl; Hemoglobin A1C 4.6 % (4.5-5.6)
[2019-11-24 14:14] LABS: Hematocrit (blood only) 23.2 % (37-47)
[2019-11-24 14:17] LABS: Hemoglobin 6.8 g/dL (12.0-16.0)
[2019-11-24 14:30] LABS: BUN Creatinine Ratio 33.6 (10-20); Est GFR (African American) 121.1; Est GFR (Non-African American) 104.5; Potassium 3.3 mmol/L (3.5-5.1)
[2019-11-24] MEDS: ICU ELECTROLYTE REPLACEMENT PROTOCOL SCH (15:32)
[2019-11-24] MEDS: POTASSIUM CHLORIDE 20 MEQ/15 ML UDC PO SCH ×3 (15:32→23:16)
[2019-11-24] MEDS: INSULIN GLARGINE SOLOSTAR 100 UNITS/ML 3 ML PEN SC SCH (19:35)
[2019-11-24] MEDS: AZITHROMYCIN 250 MG in DEXTROSE 5% 250 ML IV SCH (19:36)
[2019-11-24] MEDS: IMPACT LIQD 1.0 CAL 1,000 ML BAG OG SCH (19:38)
[2019-11-24] MEDS: cefTRIAXone SODIUM 2,000 MG in DEXTROSE 5% 50 ML IV SCH (23:13)
[2019-11-25] MEDS: ALBUT/IPRATROP 3MG/0.5MG NEB 3 ML VIAL NEB SCH ×6 (02:19→22:13)
[2019-11-25] MEDS: TRIMETHOPRIM/POLYMYXIN B OPL SCH ×8 (03:29→23:44)
[2019-11-25] MEDS: INSULIN ASPART 100 UNITS/ML 3 ML PEN SC SCH ×6 (03:47→23:59)
[2019-11-25 04:43] LABS: Basophils # (auto) 0.04 K/uL (0-0.2); Basophils % (auto) 0.6 %; Eosinophils # (auto) 0.08 K/uL (0-0.5); Eosinophils % (auto) 1.1 %; Hematocrit (blood only) 27.5 % (37-47); Hemoglobin 8.5 g/dL (12.0-16.0); Immature Granulocytes # (auto) 0.07 K/uL (0.00-0.02); Lymphocytes # (auto) 0.88 K/uL (1.2-3.4); Lymphocytes % (auto) 12.5 %; Mean Corpuscular Hemoglobin 29.6 pg (25-34); Mean Corpuscular Hgb Conc 30.9 g/dL (32-36); Mean Corpuscular Volume 95.8 fL (80-100); Mean Platelet Volume 9.2 fL (7.4-10.4); Monocytes # (auto) 0.97 K/uL (0.11-0.59); Monocytes % (auto) 13.7 %; Neutrophils # (auto) 5.02 K/uL (1.4-6.5); Neutrophils % (auto) 71.1 %; Nucleated RBC # (auto) 0.02 K/uL (0-0); Nucleated RBC % (auto) 0.2 %; Platelet Count 200 K/uL (130-400); RDW Coefficient of Variation 20.1 % (11.5-14.5); RDW Standard Deviation 70.4 fL (36.4-46.3); Red Blood Count 2.87 M/uL (4.2-5.4); White Blood Count 7.06 K/uL (4.8-10.8)
[2019-11-25 05:11] LABS: Anisocytosis Present; Polychromasia 1+
[2019-11-25 05:30] LABS: iSTAT Art Bld Gas pCO2 Correct 51 mmHg (35-46); iSTAT Art Bld Gas pH Corrected 7.346 (7.35-7.45); iSTAT Arterial Blood Gas HCO3 27 meg/L (19-24); iSTAT Arterial Blood Gas pCO2 47 mmHg (35-46); iSTAT Arterial Blood Gas pH 7.37 (7.35-7.45); iSTAT Arterial Blood Gas pO2 59 mmHg (80-95); iSTAT Arterial Blood Gas pO2 C 67; iSTAT Carbon Dioxide 28 mmol/L (24-31); iSTAT FiO2 40 %; iSTAT Hematocrit 26 % (37-47); iSTAT Hemoglobin 8.8 g/dl (12.0-16.0); iSTAT Potassium 4.2 mmol/L (3.3-5.0); iSTAT Site Art Line; iSTAT Sodium 138 mmol/L (135-144)
[2019-11-25 05:37] LABS: Creatinine Clr Calc Pharmacy 117.5 ml/min; Est GFR (African American) 125.3; Est GFR (Non-African American) 108.1; Magnesium 2.1 mg/dl (1.8-2.4); Phosphorus 2.2 mg/dl (2.5-4.9); Potassium 4.2 mmol/L (3.5-5.1)
[2019-11-25] MEDS ORDERED: POTASSIUM PHOS 3 MMOL/1 ML INFUSION IV STA (06:23)
[2019-11-25] MEDS ORDERED: POTASSIUM PHOSPHATE 15 MMOL in SODIUM CHLORIDE 0.9% 250 ML IV ONE (06:45)
--- NOTE | 2019-11-25 08:13 | XRay Report ---
XR chest 1V portable HISTORY: Respiratory failure. Dyspnea. COMPARISON: Chest 11/24/2019. FINDINGS: Endotracheal tube terminates approximately 3.6 cm in the anirudh. Nasogastric tube terminate s below the diaphragm. The tip is not included on this study. No pneumothorax. Left basilar airspace opacity persists. The right lung remains clear. No evidence for pulmonary edema. Moderate hiatus kacie ia is again noted. IMPRESSION: 1. Satisfactory support line placement. 2. No change in the left base airspace opacity. ACT 112: Negative or not required by law. Electronically signed by: Malvin Garcia M.D. 11/25/2019 8:12 AM
[2019-11-25] MEDS: THIAMINE HCL 200 MG in SODIUM CHLORIDE 0.9% 50 ML IV SCH ×2 (09:30→19:45)
[2019-11-25] MEDS: NORMOSOL-R 1,000 ML IV SCH (09:30)
[2019-11-25] MEDS: acetaZOLAMIDE 500 MG in SYRINGE 0 ML IV SCH (09:30)
[2019-11-25] MEDS: ACETAMINOPHEN SOLN 500 MG/15.62 ML UDP OG PRN (09:30)
[2019-11-25] MEDS: FOLIC ACID 1 MG TAB PO SCH (09:31)
[2019-11-25] MEDS: fentaNYL citrate 100 MCG/2 ML VIAL IV PRN ×3 (09:31→22:07)
[2019-11-25] MEDS: MIDAZOLAM HCL 1 MG/ML 2ML VIAL IV PRN ×4 (09:31→22:07)
[2019-11-25] MEDS: LANSOPRAZOLE 30 MG SOLTAB NG SCH (09:31)
[2019-11-25] MEDS: ICU ELECTROLYTE REPLACEMENT PROTOCOL SCH ×2 (09:32→10:46)
[2019-11-25] MEDS: INSULIN GLARGINE SOLOSTAR 100 UNITS/ML 3 ML PEN SC SCH ×2 (09:36→19:44)
[2019-11-25] MEDS: [UNRECOGNIZED DRUG - REMARK] GT SCH ×3 (10:45→22:50)
--- NOTE | 2019-11-25 11:02 | Hospitalist Progress Note ---
Date of Service November 25, 2019 Assessment & Plan (1) Acute on chronic respiratory failure with hypoxia and hypercapnia: Lakeisha is a 59yo female with history of O2 dependent COPD, EtOH abuse currently undergoing outpatient detoxification who presented with 1-2 days of SOB, confusion, slurred speech. Patient became unresponsive and hypoxic in the ER requiring urgent intubation for hypoxic/hypercarbic respiratory failure. ABG with acute on chronic respiratory acidosis. On admission elevated troponin at 0.267 and BNP at 2004, elevated AST/ALT/AP. CXR with fluid filled left bronchus and LLL airspace opacity Acute Hypoxic, Hypercarbic Respiratory Failure 2/2 PNA vs AoC COPD w/ baseline O2 dependence - Pt continues to be febrile overnight. - XR continues to show LLL opacity and fluid filled bronchus. Bronch performed 11/22, cultures neg. Repeat pending. - BC x2 ng. Bronch samples ngtd - Empiric ceftriaxone 2g daily + Azithromycin 250mg daily (started 11/21 just before midnight). No pseudomonus coverage at this time - Intubated. Vent @ rr18/TV400/PEEP6/FiO2 0.4 ACVC - ABG improving -Ventilator management per ICU. Tolerated FiO2 wean well, PEEP down to 6 -DuoNeb q 4 hours Macrocytic Anemia 2/2 EtOH use - Patient with macrocytic anemia, MCV=>100 on admit - Hgb decreased, appropriate rise with 1x RBC yesterday, no active bleeding. Discussed with pt and . - Folate level normal at 21.02 - B12 wnl - Folic acid 1mg po daily Sedation/Analgesia - Patient intubated - Versed and fentanyl pushes PRN for pain/agitation. - CAM negative this morning. Pt responding appropriately to quesitons, able to follow 2 step commands. - Ativan 1mg IV YASMANI started to cover for EtOH withdrawal patient intubated, sedated. History of EtOH abuse currently undergoing outpatient detox with Librium. History of depression -Admit to MICU -Continue thiamine daily Elevated troponin/BNP - Trop Downtrended, peaked at 0.267. Suspect demand in setting of respiratory failure - BNP 2k on admit, ECHO hyperdynamic with no akinesis/hypokinesis - Lasix held for metabolic alkalosis - EKG nsr with no ST changes - MAP wnl EtOH Abuse - Patient has be detoxifying at home with scheduled Librium since November 12 - follow RASS scoreing Q4H History of ETOH abuse with hepatitis/cirrhosis/transaminitis - Transaminitis to low 100s on admit. - Trend LFTs - INR wnl - Ab US pending, negative for venous thrombosis Electrolyte Dereangement - ICU repletion protocol. - Edmondson in place - Cr normal - BMP daily FEN/GI: Enteral Feeds DVT Ppx: Lovenox daily Ulcer PPx: Protonix 40mg daily Code - Full Code Dispo - MICU Admission and Anticipated Discharge Date Admission Date: November 22, 2019 Supervising Physician Co-Signing Physician Notes I also saw the patient with the resident physician and confirmed lombardo portions of the history and physical examination. I agree with the impression and plan as noted above. Patient remains vented, in the ICU, under the care of the hatchery helper team. Some progress in wean. She remains febrile although her pro calcitonin and white blood cell count are normal, and cultures subsequent to bronchoscopy nonrevealing. COVID testing this morning was negative. Subjective Seen at bedside. ETT in place, history limited. Doing well, PEEP weaned to 6. Continues to have fevers, pending repeat resp cultures. Review of Systems Review of Systems: Unobtainable due to endotracheal tube Physical Exam Physical Exam: General: Intubated, aroses to verbal stimuli. Blinks eyes/squeezes fingers to reply to questions and follows 2 step commands (squeeze my right then left hand). HEENT: Atraumatic, normocephalic. ETT in place. PERLAA. Pulm: LLL diminished, breath sounds appreciated bilaterally. [facility]. Cardiac: RRR, -mrg. Radial pulses intact and symmetrical. Abdominal: Softly distended Ext: Warm, dry. PT intact bilaterally. Results & Data Results & Data ([facility]) Vital Signs (Past 12 Hours) Vital Signs Temp Pulse Resp BP Pulse Ox 11/25/19 10:01 38.7 C H 92 H 103/69 90 11/25/19 09:01 38.6 C H 94 H 114/55 L 89 L 11/25/19 08:01 38.7 C H 98 H 112/55 L 92 11/25/19 07:18 89 25 H 93 11/25/19 07:11 89 36 H 93 11/25/19 07:01 38.8 C H 80 96/56 L 90 11/25/19 06:00 39.0 C H 86 97 11/25/19 05:57 38.9 C H 89 126/68 89 L 11/25/19 05:01 38.9 C H 87 118/64 94 11/25/19 05:00 38.9 C H 87 95 11/25/19 04:52 86 23 95 11/25/19 04:01 38.8 C H 87 116/69 89 L 11/25/19 04:00 38.8 C H 88 90 11/25/19 03:01 38.7 C H 85 108/59 L 92 11/25/19 03:00 38.7 C H 86 93 11/25/19 02:15 86 25 H 93 11/25/19 02:01 38.7 C H 87 109/53 L 94 11/25/19 02:00 38.7 C H 86 93 11/25/19 01:01 38.6 C H 90 102/53 L 92 11/25/19 01:00 38.6 C H 89 92 11/25/19 00:01 38.6 C H 95 H 109/58 L 92 11/25/19 00:00 38.6 C H 95 H 92 11/24/19 23:01 38.6 C H 89 100/52 L 90 11/24/19 23:00 38.6 C H 89 90 Resident Activity Tracking Resident Involvement: Resident Care Provided Care Provided: [facility] Medicine
--- NOTE | 2019-11-25 11:22 | Pharmacy Report ---
Pharmacy Glycemic Short Note 2 - Date of Service November 25, 2019 - Glycemic Short BSG Results (Last 24 hours): 11/24/19 11/24/19 11/24/19 12:26 14:01 19:18 Glucose 133 H POC Glucose 156 H 113 H 11/24/19 11/25/19 11/25/19 23:10 03:45 04:33 Glucose 114 H POC Glucose 143 H 128 H 11/25/19 09:34 Glucose POC Glucose 112 H OUTPATIENT ANTIDIABETIC REGIMEN: * n/a - no prior dx of dm * A1c = 4.6% 11/24/19 ASSESSMENT: 11/24 * BSGs well controlled over last 24 hrs * 40 units of SQ insulin have been administered in last 24 hrs and BSGs have ranged 113-156 * Patient remains intubated, abx continue, tube feeds are running at goal * A1c returned 4.6%, patient may be displaying stress-induced hyperglycemia or perhaps pt may have slower glycosylation leading to inaccuracy. Will lessen insulin doses as stressors decrease. 11/23 * Patient admitted to ICU for acute hypoxic, hypercarbic resp failure in the setting of pneumonia * Lakeisha is currently intubated, receiving IV abx therapy, tube feeds running at this time and near goal * Patient met criteria to begin basal/bolus SQ regimen per ICU protocol last evening. * Will initiate basal/bolus regimen at this time based upon patient weight and "moderate" stress level. Lantus doses will be scaled to lessen risk of hypoglycemia. PLAN FOR INPATIENT GLYCEMIC CONTROL: * Check A1c with next lab draw * Basal insulin * Lantus BID per scale 0-18 units depending on BSG (please refer to EMR) * Bolus insulin * NovoLog per scale Q4hrs * Goal Range: Low 110 mg/dL - High 160 mg/dL * Correction Factor: 30 mg/dL/unit * Nutritional / Prandial insulin per carb ratio of 1 unit per 10 grams CHO consumed
[2019-11-25 12:33] LABS: 7-Aminoclonaz, Confirm NEGATIVE ng/mL (<25); Hydro-Alp Ur, GC/MS NEGATIVE ng/mL (<25); Hydroxyethylflurazepam, Conf NEGATIVE ng/mL (<50); Hydroxymidazolam Ur, GC/MS NEGATIVE ng/mL (<50); Hydroxytriazolam NEGATIVE ng/mL (<50); Lorazepam, Ur GC/MS NEGATIVE ng/mL (<50); Marijuana Quant, GCMS Urine 27 ng/mL (<5); Nordiazepam, Confirm 51 ng/mL (<50); Oxazepam Ur, GC/MS 1520 ng/mL (<50); Temazepam, Confirm NEGATIVE ng/mL (<50)
[2019-11-25] MEDS: IMPACT LIQD 1.0 CAL 1,000 ML BAG OG SCH (13:29)
--- NOTE | 2019-11-25 15:15 | Ultrasound Report ---
US venous doppler LE BI HISTORY: Pain. Edema. dvt eval COMPARISON STUDY: 11/11/2019 FINDINGS: There is normal compressibility, flow, and augmentation within the bilateral lower extremit y deep venous systems. IMPRESSION: No DVT within the right or left lower extremity. ACT 112: Negative or not required by law. The above report was generated using voice recognition software. It may contain grammatical, syntax or spelling errors. Electronically signed by: Danny Aguillon M.D. 11/25/2019 3:14 PM
--- NOTE | 2019-11-25 15:38 | Critical Care Progress Note ---
Date of Service November 25, 2019 Assessment & Plan (1) Respiratory failure: Impression: 59-year-old female with history of COPD and alcohol dependence detoxing at home admitted with altered mental status, hypoxemic and hypercarbic respiratory failure, lower extremity edema, and metabolic alkalosis with respiratory acidosis. 24-hour events: Significant progress weaning the patient's FiO2 and PEEP. She was placed on a spontaneous breathing trial this morning but this was terminated due to tachypnea after about 5 or 10 minutes. She continues to remain febrile with an unclear source. She is hemodynamically stable. She was transfused 1 unit of packed cells in the last 24 hours. Patient making some clinical progress Recommendations: 1. Acute on chronic hypoxemic and hypercarbic respiratory failure: Multifactorial. Suspect pneumonia, but cultures negative to date and assay for coronavirus negative. She has made progress in her vent requirements and will continue to pursue spontaneous breathing trials. Patient requesting a nicotine replacement patch which will be provided. Given her history of sleep disordered breathing and chronic hypercarbic respiratory failure baseline, she may require extubation to noninvasive positive pressure ventilation. 2. Metabolic alkalosis: Unclear etiology. The patient was on diuretics at home but appears slightly volume up so contraction alkalosis appears less likely. No history of significant GI losses. Continue Diamox for an additional day, bicarb is decreasing. Previous blood gases showed PCO2 to be running in the 50 range. Kelsi and Gettleman syndromes appear less likely although still possible. No history of mineralocorticoid excess. She was not hyperkalemic on presentation. Improving chemistry. 3. Elevated troponin: Suspect supply demand mismatch. Patient did have lower extremity edema prior to presentation. Troponin is decreasing. No obvious EKG changes. With normal echocardiogram, suspect this was supply demand mismatch. No indication for serial imaging at this point time. Continue to follow clinically 4. History of alcohol abuse: Continue high-dose thiamine and folate. Continue judicious boluses of fentanyl and Versed for now. 5. Lower extremity edema: echocardiogram unrevealing. Try to maintain I's and O's slightly negative. Right upper quadrant ultrasound performed and demonstrated fatty infiltration of the liver but there was no comment on portal vein patency. May need to do a limited vascular study to evaluate for portal vein thrombosis 6. Probable pneumonia: Await bronchoscopy cultures, negative to date. Continue Rocephin and azithromycin (day #4/5). 7. Anemia: Possibly due to effects of alcohol. Reticulocyte count and ferritin were normal however total iron was low. Review of her outpatient clinical notes indicate that this was a problem before and she had been referred for consideration of GI evaluation with endoscopy. Will hold off for now but she may require repeat evaluation 8. Abnormal LFTs: Continue to trend at this point time. Likely sequelae of prior alcohol use. 9. Continue tube feeding at goal. 10. Persistent fevers: Etiology is somewhat unclear. Her white blood cell coun t is always been normal. She has been treated with a course of antimicrobial agents for potential lung infection however no pathogens were identified on bronchoscopy. 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 Will also check urinalysis and repeat blood cultures. DVT possible so will duplex lower extremities to ensure no evidence of clot. Procalcitonin is 0.3 which would argue against a bacterial source. No reason to suspect central fevers. No drugs known to cause febrile responses that the patient is receiving currently DVT and GI prophylaxis are appropriate and have been initiated. (2) Acute alteration in mental status: (3) Metabolic alkalosis: Admission and Anticipated Discharge Date Admission Date: November 22, 2019 Subjective Patient intubated and sedated. She is able to follow commands with sedation lightened. Review of Systems Review of Systems: Unobtainable due to endotracheal tube Physical Exam Constitutional: + mechanically ventilated Neck: trachea midline, no thyromegaly Respiratory: normal respiratory effort Cardiovascular: Rate/Rhythm: regular rate Heart Sounds: normal S1 and normal S2 Extremities: + edema Gastrointestinal (Abdomen): normal bowel sounds, soft, nontender, no hepatosplenomegaly Musculoskeletal: Extremities: extremities normal to inspection Skin: no rashes, warm and dry Lymphatic: no cervical lymphadenopathy Results & Data Results & Data ([facility]) Vital Signs (Past 12 Hours) Vital Signs Temp Pulse Resp BP Pulse Ox 11/25/19 14:42 81 93 11/25/19 14:01 38.0 C H 81 107/61 97 11/25/19 13:22 84 19 95 11/25/19 13:01 38.0 C H 84 107/55 L 96 11/25/19 12:02 38.0 C H 86 96/50 L 95 11/25/19 11:01 38.3 C H 88 93/49 L 96 11/25/19 10:55 84 24 95 11/25/19 10:01 38.7 C H 92 H 103/69 90 11/25/19 09:01 38.6 C H 94 H 114/55 L 89 L 11/25/19 08:01 38.7 C H 98 H 112/55 L 92 11/25/19 07:18 89 25 H 93 11/25/19 07:11 89 36 H 93 11/25/19 07:01 38.8 C H 80 96/56 L 90 11/25/19 06:00 39.0 C H 86 97 11/25/19 05:57 38.9 C H 89 126/68 89 L 11/25/19 05:01 38.9 C H 87 118/64 94 11/25/19 05:00 38.9 C H 87 95 11/25/19 04:52 86 23 95 11/25/19 04:01 38.8 C H 87 116/69 89 L 11/25/19 04:00 38.8 C H 88 90 Laboratory Results 11/25/19 04:33 11/25/19 04:33 Novel coronavirus test negative Respiratory cultures no growth to date Diagnostic Findings Chest x-ray from today was independently reviewed. There is some increased nodular density in the right upper lobe. The left lower lobe remains somewhat atelectatic. Tubes and lines in good position. Coding Level of Care Code 86200 Subseq Hosp Care Lvl 3 Diagnoses Respiratory failure J96.01; J96.02 Chronicity: acute Respiratory failure complication: hypoxia and hypercapnia Acute alteration in mental status R41.82 Metabolic alkalosis E87.3 (1) Respiratory failure Chronicity: acute Respiratory failure complication: hypoxia and hypercapnia Qualified Code(s): J96.01 - Acute respiratory failure with hypoxia; J96.02 - Acute respiratory failure with hypercapnia
[2019-11-25] MEDS: NICOTINE 14 MG/24 HR PATCH TD SCH (16:08)
[2019-11-25] MEDS: AZITHROMYCIN 250 MG in DEXTROSE 5% 250 ML IV SCH (19:46)
[2019-11-25] MEDS: cefTRIAXone SODIUM 2,000 MG in DEXTROSE 5% 50 ML IV SCH (22:06)
[2019-11-26] MEDS: ALBUT/IPRATROP 3MG/0.5MG NEB 3 ML VIAL NEB SCH ×6 (03:11→23:17)
[2019-11-26] MEDS: TRIMETHOPRIM/POLYMYXIN B OPL SCH ×8 (03:32→23:21)
[2019-11-26] MEDS: INSULIN ASPART 100 UNITS/ML 3 ML PEN SC SCH ×5 (04:04→23:25)
[2019-11-26] MEDS: [UNRECOGNIZED DRUG - REMARK] GT SCH ×3 (04:04→15:56)
[2019-11-26 05:34] LABS: Basophils # (auto) 0.06 K/uL (0-0.2); Basophils % (auto) 0.9 %; Eosinophils # (auto) 0.18 K/uL (0-0.5); Eosinophils % (auto) 2.8 %; Hematocrit (blood only) 28.3 % (37-47); Hemoglobin 8.5 g/dL (12.0-16.0); Immature Granulocytes # (auto) 0.14 K/uL (0.00-0.02); Immature Granulocytes % (auto) 2.1 %; Lymphocytes # (auto) 0.77 K/uL (1.2-3.4); Lymphocytes % (auto) 11.8 %; Mean Corpuscular Hemoglobin 29.2 pg (25-34); Mean Corpuscular Volume 97.3 fL (80-100); Mean Platelet Volume 9.6 fL (7.4-10.4); Monocytes # (auto) 0.79 K/uL (0.11-0.59); Monocytes % (auto) 12.1 %; Neutrophils # (auto) 4.59 K/uL (1.4-6.5); Neutrophils % (auto) 70.3 %; Nucleated RBC # (auto) 0.02 K/uL (0-0); Nucleated RBC % (auto) 0.3 %; Platelet Count 237 K/uL (130-400); RDW Coefficient of Variation 19.8 % (11.5-14.5); Red Blood Count 2.91 M/uL (4.2-5.4); White Blood Count 6.53 K/uL (4.8-10.8)
[2019-11-26 06:01] LABS: iSTAT Art Bld Gas pCO2 Correct 49 mmHg (35-46); iSTAT Arterial Blood Gas HCO3 24 meg/L (19-24); iSTAT Arterial Blood Gas pCO2 46 mmHg (35-46); iSTAT Arterial Blood Gas pH 7.33 (7.35-7.45); iSTAT Arterial Blood Gas pO2 64 mmHg (80-95); iSTAT Arterial Blood Gas pO2 C 70; iSTAT Carbon Dioxide 26 mmol/L (24-31); iSTAT FiO2 30 %; iSTAT Hematocrit 27 % (37-47); iSTAT Hemoglobin 9.2 g/dl (12.0-16.0); iSTAT Potassium 4.2 mmol/L (3.3-5.0); iSTAT Site Art Line; iSTAT Sodium 138 mmol/L (135-144)
[2019-11-26 06:06] LABS: BUN Creatinine Ratio 49.6 (10-20); Calcium 8.4 mg/dl (8.5-10.1); Creatinine Clr Calc Pharmacy 145.1 ml/min; Est GFR (African American) 133.4; Est GFR (Non-African American) 115.1; Potassium 4.1 mmol/L (3.5-5.1)
[2019-11-26 06:09] LABS: Phosphorus 3.5 mg/dl (2.5-4.9)
--- NOTE | 2019-11-26 07:29 | Hospitalist Progress Note ---
Date of Service November 26, 2019 Assessment & Plan (1) Acute on chronic respiratory failure with hypoxia and hypercapnia: Lakeisha is a 59yo female with history of O2 dependent COPD, EtOH abuse currently undergoing outpatient detoxification who presented with 1-2 days of SOB, confusion, slurred speech. Patient became unresponsive and hypoxic in the ER requiring urgent intubation for hypoxic/hypercarbic respiratory failure. ABG with acute on chronic respiratory acidosis. On admission elevated troponin at 0.267 and BNP at 2005, elevated AST/ALT/AP. CXR with fluid filled left bronchus and LLL airspace opacity Acute Hypoxic, Hypercarbic Respiratory Failure 2/2 PNA vs AoC COPD w/ baseline O2 dependence - Pt continues to be febrile overnight, although curve improving - XR continues to show LLL opacity and fluid filled bronchus. Bronch performed 11/22, cultures neg. Repeat pending. - BC x2 ng. Bronch samples ngtd - Empiric ceftriaxone 2g daily + Azithromycin 250mg daily (started 11/21 just before midnight). Procalcitonin negative, patient completing day 5/5 antibiotics. Anticipate discontinuation of antibiotics after day 5, fever curve improving. - Intubated. Vent with peep weaned to 5, SpO2 down to .3. Patient following commands, RSBI less than 100 today, anticipate extubation today if continuing to do well and sats adequate - ABG with respiratory acidosis today -DuoNeb q 4 hours Macrocytic Anemia 2/2 EtOH use - Patient with macrocytic anemia, MCV=>100 on admit - Hgb 8.5, stable today. s/p 1x RBC transufsion with appropriate rise during admission. - Folate level normal at 21.02 - B12 wnl - Folic acid 1mg po daily Sedation/Analgesia - Patient intubated, anticipate trial and extubation as above - Versed and fentanyl pushes PRN for pain/agitation. - CAM negative this morning. Pt responding appropriately to questions, able to follow 2 step commands. - Ativan 1mg IV YASMANI started to cover for EtOH withdrawal patient intubated, sedated. History of EtOH abuse currently undergoing outpatient detox with Librium. History of depression -Admit to MICU -Continue thiamine daily Elevated troponin/BNP - Trop Downtrended, peaked at 0.267. Suspect demand in setting of respiratory failure - BNP 2k on admit, ECHO hyperdynamic with no akinesis/hypokinesis - Lasix held for metabolic alkalosis - EKG nsr with no ST changes - MAP wnl EtOH Abuse - Patient has be detoxifying at home with scheduled Librium since November 12. On propofol then ativan Q6H during admission, currently held. - follow RASS scoring Q4H History of ETOH abuse with hepatitis/cirrhosis/transaminitis - Transaminitis to low 100s on admit. - Trend LFTs - INR wnl - Ab US pending, negative for venous thrombosis Electrolyte Dereangement - ICU repletion protocol. - Edmondson in place - Cr normal - BMP daily FEN/GI: Enteral Feeds held in anticipation of potential extubation DVT Ppx: Lovenox daily. Lower extremity Dopplers negative Ulcer PPx: Protonix 40mg daily Code - Full Code Dispo - MICU Admission and Anticipated Discharge Date Admission Date: November 22, 2019 Supervising Physician Co-Signing Physician Notes I also saw the patient with the resident physician and confirmed lombardo portions of the history and physical examination. I agree with the impression and plan as noted above. Patient remains vented, in the ICU, under the care of the therapeutic activities services worker team. The expectation is that they will extubate her later this morning. Lead care continues provided by the ICU team. We will continue to follow for continuity in anticipation of eventual transfer to the floor. Subjective Seen at bedside this morning. Patient breathing well, on pressure support trial. Alert, responds to 1 and two-step commands. Indicates that she is eager to have her ETT tube removed. Discussed case with nursing, updated with respiratory. Patient doing well on pressure support trial, acceptable R SBI. Anticipate vent wean this morning. Antibiotics to be discontinued, pro-Mike negative, and has received a full course of antibiotics while also having a negative series of sputum/bronc specimens and blood cultures. Review of Systems Review of Systems: Unobtainable due to endotracheal tube Physical Exam Physical Exam: General: Intubated, aroses to verbal stimuli. Blinks eyes/squeezes fingers to reply to questions and follows 2 step commands (squeeze my right then left hand). HEENT: Atraumatic, normocephalic. ETT in place. PERLAA. Pulm: LLL diminished, breath sounds appreciated bilaterally. On mech vent AC/VC. Cardiac: RRR, -mrg. Radial pulses intact and symmetrical. Abdominal: Softly distended Ext: Warm, dry. PT intact bilaterally. Results & Data Results & Data ([facility]) Vital Signs (Past 12 Hours) Vital Signs Temp Pulse Resp BP Pulse Ox 11/26/19 06:02 88 24 92 11/26/19 05:30 88 18 94 11/26/19 05:01 38.3 C H 87 103/55 L 90 11/26/19 04:02 38.2 C H 92 H 99/59 L 89 L 11/26/19 04:00 38.2 C H 92 H 90 11/26/19 03:12 86 24 94 11/26/19 03:01 38.2 C H 80 108/63 94 11/26/19 03:00 38.2 C H 80 94 11/26/19 02:01 38.1 C H 80 103/61 94 11/26/19 02:00 38.1 C H 80 94 11/26/19 01:30 81 22 96 11/26/19 01:01 38.0 C H 84 114/63 96 11/26/19 01:00 38.0 C H 84 96 11/26/19 00:01 38.0 C H 84 103/59 L 92 11/26/19 00:00 38.0 C H 84 91 11/25/19 23:01 38.1 C H 87 103/55 L 96 11/25/19 22:10 82 18 93 11/25/19 22:01 38.2 C H 84 106/63 96 11/25/19 21:02 38.3 C H 85 107/65 95 11/25/19 21:01 38.3 C H 85 95 11/25/19 20:01 38.2 C H 87 119/78 95 11/25/19 20:00 38.2 C H 88 94 Resident Activity Tracking Resident Involvement: Resident Care Provided Care Provided: Adult Hospital Medicine
--- NOTE | 2019-11-26 07:51 | XRay Report ---
XR chest 1V portable HISTORY: Shortness of breath. COMPARISON: Chest 11/25/2019. FINDINGS: The endotracheal tube terminates 3.8 cm from the anirudh. Nasogastric tube terminates below the diaphragm. The tip is not included on this study. No pneumothorax. Left basilar opacity/effusion persists. The right lung is essentially clear. The heart is stable in size. IMPRESSION: 1. Satisfactory support line placement. 2. No change in the left basilar opacity/effusion. ACT 112: Negative or not required by law. Electronically signed by: Malvin Garcia M.D. 11/26/2019 7:49 AM
[2019-11-26] MEDS: fentaNYL citrate 100 MCG/2 ML VIAL IV PRN (08:00)
[2019-11-26] MEDS: FOLIC ACID 1 MG TAB PO SCH (08:01)
--- NOTE | 2019-11-26 08:12 | Critical Care Progress Note ---
Date of Service November 26, 2019 Assessment & Plan (1) Respiratory failure: Impression: 59-year-old female with history of COPD and alcohol dependence detoxing at home admitted with altered mental status, hypoxemic and hypercarbic respiratory failure, lower extremity edema, and metabolic alkalosis with respiratory acidosis. 24-hour events: Patient did well over the last 24 hours with minimal vent settings. She is remained hemodynamically stable. She was placed on an SBT this morning however blood gases demonstrated chronic respiratory acidosis and the trial was aborted. Her RSB I reportedly at that time was around 50. Recommendations: 1. Acute on chronic hypoxemic and hypercarbic respiratory failure: Multifactorial. Suspect pneumonia, but cultures negative to date and assay for coronavirus negative. Procalcitonin negative. She is tolerating pressure support this morning and will complete a spontaneous breathing trial and if she does well anticipate proceeding with extubation. Continue transdermal nicotine replacement given her history of sleep disordered breathing and chronic hypercarbic respiratory failure baseline, she may require extubation to noninvasive positive pressure ventilation. 2. Metabolic alkalosis: Unclear etiology. Previous blood gases showed PCO2 to be running in the 50 range. Kelsi and Gettleman syndromes appear less likely although still possible. No history of mineralocorticoid excess. She was not hyperkalemic on presentation. Improving chemistry. Now mild respiratory a cidosis potentially driven by lowering her bicarb below her previous threshold. 3. Elevated troponin: Suspect supply demand mismatch. Patient did have lower extremity edema prior to presentation. Troponin is decreasing. No obvious EKG changes. With normal echocardiogram, suspect this was supply demand mismatch. No indication for serial imaging at this point time. Continue to follow clinica lly 4. History of alcohol abuse: Continue high-dose thiamine and folate. Continue judicious boluses of fentanyl and Versed for now. 5. Lower extremity edema: echocardiogram unrevealing. Try to maintain I's and O's slightly negative. Right upper quadrant ultrasound performed and demonstrated fatty infiltration of the liver but there was no comment on portal vein patency. 6. Probable pneumonia: Await bronchoscopy cultures, negative to date. Continue Rocephin and azithromycin (day #5/5). 7. Anemia: Possibly due to effects of alcohol. Reticulocyte count and ferritin were normal however total iron was low. Review of her outpatient clinical notes indicate that this was a problem before and she had been referred for consideration of GI evaluation with endoscopy. Hemoglobin currently stable but if she has continued losses, will consult gastroenterology for consideration of endoscopy. 8. Abnormal LFTs: Continue to trend at this point time. Likely sequelae of prior alcohol use. 9. Hold tube feeds currently in anticipation of possible extubation and vent liberation 10. Persistent fevers: Fever curve better. Urine culture pending. Repeat blood cultures pending. No evidence of DVT. White count remains normal and procalcitonin was negative. Query possible viral etiology. COVID testing negative DVT and GI prophylaxis are appropriate and have been initiated. (2) Acute alteration in mental status: (3) Metabolic alkalosis: Admission and Anticipated Discharge Date Admission Date: November 22, 2019 Subjective Remains intubated. Minimal sedation. She is awake and following commands this morning. Review of Systems Review of Systems: Unobtainable due to endotracheal tube Physical Exam Constitutional: + mechanically ventilated Neck: trachea midline, no thyromegaly Respiratory: normal respiratory effort Cardiovascular: Rate/Rhythm: regular rate Heart Sounds: normal S1 and normal S2 Extremities: + edema Gastrointestinal (Abdomen): normal bowel sounds, soft, nontender, no hepatosplenomegaly Musculoskeletal: Extremities: extremities normal to inspection Skin: no rashes, warm and dry Lymphatic: no cervical lymphadenopathy Results & Data Results & Data ([facility]) Vital Signs (Past 12 Hours) Vital Signs Temp Pulse Resp BP Pulse Ox 11/26/19 06:02 88 24 92 11/26/19 05:30 88 18 94 11/26/19 05:01 38.3 C H 87 103/55 L 90 11/26/19 04:02 38.2 C H 92 H 99/59 L 89 L 11/26/19 04:00 38.2 C H 92 H 90 11/26/19 03:12 86 24 94 11/26/19 03:01 38.2 C H 80 108/63 94 11/26/19 03:00 38.2 C H 80 94 11/26/19 02:01 38.1 C H 80 103/61 94 11/26/19 02:00 38.1 C H 80 94 11/26/19 01:30 81 22 96 11/26/19 01:01 38.0 C H 84 114/63 96 11/26/19 01:00 38.0 C H 84 96 11/26/19 00:01 38.0 C H 84 103/59 L 92 11/26/19 00:00 38.0 C H 84 91 11/25/19 23:01 38.1 C H 87 103/55 L 96 11/25/19 22:10 82 18 93 11/25/19 22:01 38.2 C H 84 106/63 96 11/25/19 21:02 38.3 C H 85 107/65 95 11/25/19 21:01 38.3 C H 85 95 Laboratory Results 11/26/19 04:43 11/26/19 04:43 Procal 0.30 Blood, urine, bronch cultures all negative to date. Coding Level of Care Code 46855 Subseq Hosp Care Lvl 3 Diagnoses Respiratory failure J96.01; J96.02 Chronicity: acute Respiratory failure complication: hypoxia and hypercapnia Acute alteration in mental status R41.82 Metabolic alkalosis E87.3 (1) Respiratory failure Chronicity: acute Respiratory failure complication: hypoxia and hypercapnia Qualified Code(s): J96.01 - Acute respiratory failure with hypoxia; J96.02 - Acute respiratory failure with hypercapnia
[2019-11-26] MEDS: NICOTINE 14 MG/24 HR PATCH TD SCH (08:21)
[2019-11-26] MEDS: INSULIN GLARGINE SOLOSTAR 100 UNITS/ML 3 ML PEN SC SCH ×2 (08:24→21:08)
[2019-11-26] MEDS: LANSOPRAZOLE 30 MG SOLTAB NG SCH (08:25)
[2019-11-26] MEDS: THIAMINE HCL 200 MG in SODIUM CHLORIDE 0.9% 50 ML IV SCH ×2 (08:26→21:05)
[2019-11-26] MEDS: ACETAMINOPHEN SOLN 500 MG/15.62 ML UDP OG PRN (09:00)
[2019-11-26] MEDS ORDERED: NURSING DECISION MEDICATION ONE (10:44)
[2019-11-26] MEDS ORDERED: COUGH DROP (SUGAR FREE) LOZ 24 LOZ/1 BOX BUCCAL PRN (10:49)
[2019-11-26] MEDS: ICU ELECTROLYTE REPLACEMENT PROTOCOL SCH (11:11)
[2019-11-26] MEDS ORDERED: MAGNESIUM SULFATE / D5W 1 GM/100 ML BAG IV ONE (12:00)
[2019-11-26] MEDS: HEPARIN SOD 5,000 UNIT/0.5 ML VIAL SQ SCH ×2 (12:21→23:21)
--- NOTE | 2019-11-26 13:08 | Pharmacy Report ---
Pharmacy Glycemic Short Note 2 - Date of Service November 26, 2019 - Glycemic Short BSG Results (Last 24 hours): 11/25/19 11/25/19 11/25/19 16:19 19:39 23:56 Glucose POC Glucose 107 H 111 H 123 H 11/26/19 11/26/19 11/26/19 04:02 04:43 08:22 Glucose 119 H POC Glucose 114 H 116 H 11/26/19 12:17 Glucose POC Glucose 88 OUTPATIENT ANTIDIABETIC REGIMEN: * n/a - no prior dx of dm * A1c = 4.6% 11/24/19 ASSESSMENT: 11/25 * BSGs well controlled over last 24 hrs * 30 units SQ insulin administered over last 24 hrs and BSGs have ranged 88-123 * Patient has now been extubated, abx have been d/c'd and tube feeds stopped. PO intake today uncertain, pending swallow eval results. * Will scale back both basal and bolus insulin doses at this time. Basal will not be administered unless BSG > 140. Prandial insulin dose will be reduced by 50%. 11/24 * BSGs well controlled over last 24 hrs * 40 units of SQ insulin have been administered in last 24 hrs and BSGs have ranged 113-156 * Patient remains intubated, abx continue, tube feeds are running at goal * A1c returned 4.6%, patient may be displaying stress-induced hyperglycemia or perhaps pt may have slower glycosylation leading to inaccuracy. Will lessen insulin doses as stressors decrease. 11/23 * Patient admitted to ICU for acute hypoxic, hypercarbic resp failure in the setting of pneumonia * Lakeisha is currently intubated, receiving IV abx therapy, tube feeds running at this time and near goal * Patient met criteria to begin basal/bolus SQ regimen per ICU protocol last evening. * Will initiate basal/bolus regimen at this time based upon patient weight and "moderate" stress level. Lantus doses will be scaled to lessen risk of hypoglycemia. PLAN FOR INPATIENT GLYCEMIC CONTROL: * Check A1c with next lab draw * Basal insulin * Lantus BID per scale 0-12 units depending on BSG (please refer to EMR) * Bolus insulin * NovoLog per scale Q4hrs * Goal Range: Low 120 mg/dL - High 160 mg/dL * Correction Factor: 40 mg/dL/unit * Nutritional / Prandial insulin per carb ratio of 1 unit per 20 grams CHO consumed
[2019-11-27] MEDS: TRIMETHOPRIM/POLYMYXIN B OPL SCH ×8 (01:54→23:58)
[2019-11-27] MEDS: ALBUT/IPRATROP 3MG/0.5MG NEB 3 ML VIAL NEB SCH ×6 (03:08→23:02)
[2019-11-27 04:44] LABS: Basophils # (auto) 0.06 K/uL (0-0.2); Basophils % (auto) 0.7 %; Eosinophils # (auto) 0.18 K/uL (0-0.5); Hemoglobin 10.2 g/dL (12.0-16.0); Immature Granulocytes # (auto) 0.09 K/uL (0.00-0.02); Lymphocytes # (auto) 0.58 K/uL (1.2-3.4); Lymphocytes % (auto) 6.3 %; Mean Corpuscular Hemoglobin 29.7 pg (25-34); Mean Corpuscular Volume 99.1 fL (80-100); Mean Platelet Volume 9.1 fL (7.4-10.4); Monocytes # (auto) 1.12 K/uL (0.11-0.59); Monocytes % (auto) 12.1 %; Neutrophils % (auto) 77.9 %; Platelet Count 225 K/uL (130-400); RDW Coefficient of Variation 19.4 % (11.5-14.5); RDW Standard Deviation 70.5 fL (36.4-46.3); Red Blood Count 3.43 M/uL (4.2-5.4); White Blood Count 9.23 K/uL (4.8-10.8)
[2019-11-27 05:01] LABS: BUN Creatinine Ratio 37.9 (10-20); Calcium 9.1 mg/dl (8.5-10.1); Creatinine Clr Calc Pharmacy 145.6 ml/min; Est GFR (African American) 133.4; Est GFR (Non-African American) 115.1; Magnesium 1.9 mg/dl (1.8-2.4); Potassium 4.3 mmol/L (3.5-5.1)
[2019-11-27] MEDS ORDERED: MAGNESIUM SULFATE / D5W 1 GM/100 ML BAG IV ONE (05:07)
[2019-11-27] MEDS: INSULIN ASPART 100 UNITS/ML 3 ML PEN SC SCH ×3 (05:11→18:49)
--- NOTE | 2019-11-27 07:59 | Critical Care Progress Note ---
Date of Service November 27, 2019 Assessment & Plan (1) Respiratory failure: Impression: 59-year-old female with history of COPD and alcohol dependence detoxing at home admitted with altered mental status, hypoxemic and hypercarbic respiratory failure, lower extremity edema, and metabolic alkalosis with respiratory acidosis. 24-hour events: Patient extubated without significant difficulty yesterday. She did have some post extubation hoarseness. No stridor. She is had her arterial line and Edmondson catheter removed and is out of bed to chair. She is pending speech therapy evaluations as well as PT and OT is been well maintained on nasal cannula. Antibiotics were discontinued. Recommendations: 1. Acute on chronic hypoxemic and hypercarbic respiratory failure: Multifactorial. Suspect pneumonia, but cultures negative to date and assay for coronavirus negative. Procalcitonin negative. Continue to wean oxygen as tracy ated. Pulmonary toilet. Incentive spirometry. Maintain saturation at or above 88%. 2. Metabolic alkalosis: Unclear etiology. Previous blood gases showed PCO2 to be running in the 50 range. Now appears resolved. Follow clinically 3. Elevated troponin: Suspect supply demand mismatch. Patient did have lower extremity edema prior to presentation. Troponin is decreasing. No obvious EKG changes. With normal echocardiogram, suspect this was supply demand mismatch. No indication for serial imaging at this point time. Continue to follow clinically 4. History of alcohol abuse: Continue high-dose thiamine and folate. Doing well clinically 5. Lower extremity edema: echocardiogram unrevealing. Right upper quadrant ultrasound with fatty infiltration of the liver. Enzymes are normal. Will touch with diuretics today 6. Probable pneumonia: Await bronchoscopy cultures, negative to date. Completed course of Rocephin and azithromycin (#5/5). 7. Anemia: Possibly due to effects of alcohol. Reticulocyte count and ferritin were normal however total iron was low. Review of her outpatient clinical notes indicate that this was a problem before and she had been referred for cons ideration of GI evaluation with endoscopy. Hemoglobin currently stable but if she has continued losses, will consult gastroenterology for consideration of endoscopy. 8. Abnormal LFTs: Continue to trend at this point time. Likely sequelae of prior alcohol use. 9. Diet per speech therapy 10. Persistent fevers: Fever curve better. Urine culture pending. Repeat blood cultures pending. No evidence of DVT. White count remains normal and procalcitonin was negative. Query possible viral etiology. COVID testing negative. Follow clinically. Unclear if this may have been related to probably related to proving fever curve Patient is significantly improving at this point time and is need of continued rehab. Okay to transfer out of the intensive care unit at this point in time under the care of the hospitalist. Will sign off once she leaves the ICU. Feel free to contact us if we can be of additional assistance. (2) Acute alteration in mental status: (3) Metabolic alkalosis: Admission and Anticipated Discharge Date Admission Date: November 22, 2019 Subjective Patient extubated without difficulty. She was seen this morning and discussed on multidisciplinary rounds as well as with the bedside ICU nurse. She continues to make steady progress. She is out of bed to the chair. She continues to experience some hoarseness of her voice but this is improving. She is pending a swallow study evaluation to advance diet. She denies chest pain or shortness of breath. She does have an intermittently productive cough. Review of Systems Review of Systems: All systems reviewed & are unremarkable except as noted in HPI & below Physical Exam Constitutional: well developed; no acute distress and not ill appearing Neck: trachea midline, no thyromegaly Respiratory: normal respiratory effort Cardiovascular: Rate/Rhythm: regular rate Heart Sounds: normal S1 and normal S2 Extremities: + edema Gastrointestinal (Abdomen): normal bowel sounds, soft, nontender, no hepatosplenomegaly Musculoskeletal: Extremities: extremities normal to inspection Skin: no rashes, warm and dry Lymphatic: no cervical lymphadenopathy Results & Data Results & Data ([facility]) Vital Signs (Past 12 Hours) Vital Signs Temp Pulse Pulse Resp BP Pulse Ox 11/27/19 07:19 85 30 H 95 11/27/19 06:02 82 28 H 159/100 H 93 11/27/19 06:01 85 22 93 11/27/19 05:03 74 24 98 11/27/19 05:02 36.9 C 76 32 H 124/69 97 11/27/19 04:02 76 28 H 107/63 93 11/27/19 04:01 75 25 H 92 11/27/19 03:09 84 82 20 98 11/27/19 03:02 76 28 H 117/71 11/27/19 02:02 78 25 H 114/60 100 11/27/19 02:00 79 28 H 99 11/27/19 01:02 73 19 118/71 100 11/27/19 01:00 76 22 11/27/19 00:02 79 21 112/57 L 11/27/19 00:00 79 24 11/26/19 23:58 78 11/26/19 23:26 83 21 95 11/26/19 23:20 80 21 95 11/26/19 23:02 36.8 C 78 20 125/73 100 11/26/19 22:02 77 21 113/69 99 11/26/19 21:01 36.8 C 73 16 98/51 L 99 11/26/19 20:16 81 24 91 11/26/19 20:01 79 16 Laboratory Results 11/27/19 04:25 11/27/19 04:25 Diagnostic Findings No new films. Coding Level of Care Code 48891 Subseq Hosp Care Lvl 3 Diagnoses Respiratory failure J96.01; J96.02 Chronicity: acute Respiratory failure complication: hypoxia and hypercapnia Acute alteration in mental status R41.82 Metabolic alkalosis E87.3 (1) Respiratory failure Chronicity: acute Respiratory failure complication: hypoxia and hypercapnia Qualified Code(s): J96.01 - Acute respiratory failure with hypoxia; J96.02 - Acute respiratory failure with hypercapnia
--- NOTE | 2019-11-27 08:03 | Hospitalist Progress Note ---
Date of Service November 27, 2019 Assessment & Plan (1) Acute on chronic respiratory failure with hypoxia and hypercapnia: Lakeisha is a 59yo female with history of O2 dependent COPD, EtOH abuse currently undergoing outpatient detoxification who presented with 1-2 days of SOB, confusion, slurred speech. Patient became unresponsive and hypoxic in the ER requiring urgent intubation for hypoxic/hypercarbic respiratory failure. ABG with acute on chronic respiratory acidosis. On admission elevated troponin at 0.267 and BNP at 2004, elevated AST/ALT/AP. CXR with fluid filled left bronchus and LLL airspace opacity. Acute Hypoxic, Hypercarbic Respiratory Failure 2/2 PNA vs AoC COPD w/ baseline O2 dependence - Pt afebrile today, no leukocytosis. - XR continues to show LLL opacity and fluid filled bronchus. Bronch performed 11/22, cultures neg. Repeat pending. - BC x2 ng. Bronch samples ngtd. Had therapeutic aspiration of secretions today (11/26) - Empiric ceftriaxone 2g daily + Azithromycin 250mg daily (started 11/21 just before midnight). Procalcitonin negative, patient completing day 5/5 antibiotics. Antibiotics d/c'ed after day 5, fever curve improving. - Extubated today. Currently on Oxymask and saturating well. - DuoNeb q 4 hours. Macrocytic Anemia 2/2 EtOH use - Patient with macrocytic anemia, MCV=>100 on admit - Hgb 10.2, improved today. s/p 1x RBC transfusion with appropriate rise during admission. - Folate level normal at 21.02. - B12 wnl. - Folic acid 1mg po daily. Sedation/Analgesia - No longer on sedation due to extubation. Elevated troponin/BNP - Trop Downtrended, peaked at 0.267. Suspect demand in setting of respiratory failure. - BNP 2k on admit, ECHO hyperdynamic with no akinesis/hypokinesis. - Lasix held for metabolic alkalosis. - EKG nsr with no ST changes. - MAP wnl. EtOH Abuse - Patient has be detoxifying at home with scheduled Librium since November 12. On propofol then ativan Q6H during admission, currently held. - Doing well and without symptoms of withdrawal. History of ETOH abuse with hepatitis/cirrhosis/transaminitis - Transaminitis to low 100s on admit. - Trend LFTs. - INR wnl. Electrolyte Derangement - ICU repletion protocol. - Edmondson in place. - Cr normal. - BMP daily. FEN/GI: NPO at this time. DVT Ppx: Heparin SQ q12. Lower extremity Dopplers negative Ulcer PPx: Protonix 40mg daily Code - Full Code Dispo - MICU Admission and Anticipated Discharge Date Admission Date: November 22, 2019 Supervising Physician Co-Signing Physician Notes Patient seen and examined with PGY-2 Dr. Ochoa. Agree with history, exam findings, assessment and plan of care. In brief, Ms. Aguirre is a 59 year old female with history of COPD (on chronic O2), ETOH use disorder admitted with confusion and became unresponsive and hypoxic in the ED. Today, she remains extubated. She was briefly on BiPAP and had a therapeutic bronch with aspiration of secretions with improvement in her oxygenation. She is now on 6L oxymask. She feels that she is improving. Feeling a bit uncomfortable with the oxymask as it blows oxygen into her eyes. Throat is a bit sore. On exam, she is breathing comfortably without use of accessory muscles. Oxymask on. Diminished breath sounds throughout with scattered wheezes. No lower extremity edema. 1. Acute, hypoxic, hypercarbic respiratory failure secondary to pneumonia and acute COPD exacerbation. Blood cultures neg. Completed 5 days of ceftriaxone and azithromycin. Extubated on 11/25. O2 support as indicated. Monitor in the ICU overnight. If she does well, anticipate transfer to the floor tomorrow. 2. macrocytic anemia. s/p 1 unit PRBCs. 3. elevated trop and BNP. Demand in nature. Echo with hyperdynamic motion but no akinesis or hypokinesis. 4. Severe alcohol use disorder. Motivated to work towards cessation. She was previously doing an outpatient Librium taper. Will plan to discuss outpatient vs inpatient therapy/rehab. 5. ETOH cirrhosis. Trending LFTs. INR normal. 6. Electrolyte derangement. Repleting. Dispo: pending clinical improvement. Subjective Patient was extubated early this AM. Still with SOB and on 6L Oxymask. Endorses a sensation of tiredness, but otherwise feels well given her recent extubation. No chest pain, abdominal pain, nausea or vomiting, dizziness or headaches. Review of Systems Review of Systems: All systems reviewed & are unremarkable except as noted in Subjective Physical Exam Constitutional: WD/WN, vitals as above Eyes: PERRL, conjunctivae normal, anicteric sclerae Neck: normal visual inspection Respiratory: normal respiratory effort Auscultation: no crackles intermittent wheeze Cardiovascular: RRR, no murmur, no edema Gastrointestinal (Abdomen): normal bowel sounds, soft, nontender, no hepatosplenomegaly Skin: no rashes, warm and dry Psychiatric: A+Ox3, euthymic affect Results & Data Results & Data ([facility]) Vital Signs (Past 12 Hours) Vital Signs Temp Pulse Pulse Resp BP Pulse Ox 11/27/19 07:19 85 30 H 95 11/27/19 06:02 82 28 H 159/100 H 93 11/27/19 06:01 85 22 93 11/27/19 05:03 74 24 98 11/27/19 05:02 36.9 C 76 32 H 124/69 97 11/27/19 04:02 76 28 H 107/63 93 11/27/19 04:01 75 25 H 92 11/27/19 03:09 84 82 20 98 11/27/19 03:02 76 28 H 117/71 11/27/19 02:02 78 25 H 114/60 100 11/27/19 02:00 79 28 H 99 11/27/19 01:02 73 19 118/71 100 11/27/19 01:00 76 22 11/27/19 00:02 79 21 112/57 L 11/27/19 00:00 79 24 11/26/19 23:58 78 11/26/19 23:26 83 21 95 11/26/19 23:20 80 21 95 11/26/19 23:02 36.8 C 78 20 125/73 100 11/26/19 22:02 77 21 113/69 99 11/26/19 21:01 36.8 C 73 16 98/51 L 99 11/26/19 20:16 81 24 91 Resident Activity Tracking Resident Involvement: Resident Care Provided Care Provided: Adult Hospital Medicine
[2019-11-27] MEDS ORDERED: FUROSEMIDE 20 MG in SYRINGE 0 ML IV ONE (08:15)
[2019-11-27] MEDS: INSULIN GLARGINE SOLOSTAR 100 UNITS/ML 3 ML PEN SC SCH ×2 (08:32→20:46)
[2019-11-27] MEDS: FOLIC ACID 1 MG TAB PO SCH ×2 (09:27→10:18)
[2019-11-27] MEDS: ICU ELECTROLYTE REPLACEMENT PROTOCOL SCH (09:31)
[2019-11-27] MEDS: LANSOPRAZOLE 30 MG SOLTAB NG SCH (09:32)
[2019-11-27] MEDS: NICOTINE 14 MG/24 HR PATCH TD SCH (09:32)
--- NOTE | 2019-11-27 10:23 | XRay Report ---
XR chest 1V portable CLINICAL HISTORY: resp failrue dyspnea COMPARISON STUDY: 11/26/2019 FINDINGS: Considerable increase in opacification left hemithorax. Small component of residual aerated lung left pulmonary apex. Right lung remains clear. IMPRESSION: Considerable increase in opacification left hemithorax. Right lung remains clear. Cardio mediastinal shift to the left presumably related to left lung consolidative change. ACT 112: Negative or not required by law. The above report was generated using voice recognition software. It may contain grammatical, syntax or spelling errors. Electronically signed by: Danny Aguillon M.D. 11/27/2019 10:21 AM
[2019-11-27] MEDS ORDERED: MIDAZOLAM HCL 5 MG/ML 1 ML VIAL ONE (11:14)
[2019-11-27] MEDS ORDERED: fentaNYL citrate 100 MCG/2 ML VIAL ONE (11:14)
[2019-11-27] MEDS: HEPARIN SOD 5,000 UNIT/0.5 ML VIAL SQ SCH ×2 (12:38→23:59)
--- NOTE | 2019-11-27 12:51 | Procedure Note ---
Procedure Note: Bronchoscopy Procedure Procedure: Therapeutic aspiration of secretions, initial/subsequent Conscious sedation Provider: Gabino Noland MD Consent: Signed by patient and timeout verified prior to procedure. Sedation start: 1235 Sedation end: 1250 Conscious sedation: 100 mcg fentanyl, 3 mg Versed EBL: 0 Procedure: Patient was in the intensive care unit. She had been extubated. She developed progressive respiratory distress today and chest x-ray demonstrated volume loss in the left hemithorax. She was transitioned to BiPAP but there was suspicion of a mucous plug and bronchoscopy was indicated. Verbal consent was obtained from the patient. Timeout was performed and consent was verified The fiberoptic bronchoscope was advanced through the BiPAP mask via the adapter after the patient was placed on 100% FiO2. The scope was passed through the right nares without difficulty. Vocal cords were visualized and found to be normal in function and appearance with the exception of some small ulcers likely secondary to the endotracheal tube. Topical anesthesia of the cords was achieved with instillation of lidocaine through the scope. The scope was passed through the cords. A small area of anterior ulceration was identified in the trachea consistent with prior intubation. The trachea was somewhat tortuous. The scope was advanced to the level of the main anirudh. There were copious thick whitish secretions which occluded the left mainstem bronchus. These were aspirated with saline lavage. Once the mainstem was cleared, systematic inspection of the airways was conducted. Right-sided airways were patent without significant mucosal abnormality or endobronchial lesion. Throughout the left lung there were copious whitish secretions identified throughout. These were more prominent in the left lower lobe. These required extensive saline lavage to clear the airway and there were some residual secretions which continued to emanate from the left lower lobe even after extensive lavage. The airways had been adequately cleared with catholic of patency of the left mainstem bronchus and the scope was withdrawn. Impression: 1. Ulcers on the vocal cords and proximal trachea consistent with prior intubation. 2. Extensive mucoid secretions in the left mainstem bronchus extending down to the left lower lobe. These were cleared with saline lavage and sent for microbiologic analysis. Continued aggressive pulmonary toilet and mucolytic's as tolerated
[2019-11-27] MEDS: SODIUM CHLOR 7% 4 ML NEB NEB SCH (19:45)
[2019-11-27] MEDS ORDERED: MoRPHine SULFATE 2 MG/ML CARP IV STA (22:10)
[2019-11-28] MEDS: INSULIN ASPART 100 UNITS/ML 3 ML PEN SC SCH ×5 (00:01→21:49)
[2019-11-28] MEDS: TRIMETHOPRIM/POLYMYXIN B OPL SCH ×8 (02:01→23:20)
[2019-11-28] MEDS: ALBUT/IPRATROP 3MG/0.5MG NEB 3 ML VIAL NEB SCH ×6 (03:17→23:16)
[2019-11-28 04:31] LABS: Hematocrit (blood only) 31.4 % (37-47); Hemoglobin 9.3 g/dL (12.0-16.0); Mean Corpuscular Hemoglobin 29.3 pg (25-34); Mean Corpuscular Hgb Conc 29.6 g/dL (32-36); Mean Corpuscular Volume 99.1 fL (80-100); Mean Platelet Volume 9.2 fL (7.4-10.4); Platelet Count 311 K/uL (130-400); RDW Standard Deviation 68.7 fL (36.4-46.3); Red Blood Count 3.17 M/uL (4.2-5.4); White Blood Count 8.19 K/uL (4.8-10.8)
[2019-11-28 04:52] LABS: BUN Creatinine Ratio 47.5 (10-20); Est GFR (African American) 126.2; Est GFR (Non-African American) 108.9; Magnesium 2.1 mg/dl (1.8-2.4); Phosphorus 4.5 mg/dl (2.5-4.9)
--- NOTE | 2019-11-28 06:47 | Hospitalist Progress Note ---
Date of Service November 28, 2019 Assessment & Plan (1) Acute on chronic respiratory failure with hypoxia and hypercapnia: Lakeisha is a 59yo female with history of O2 dependent COPD, EtOH abuse currently undergoing outpatient detoxification who presented with 1-2 days of SOB, confusion, slurred speech. Patient became unresponsive and hypoxic in the ER requiring urgent intubation for hypoxic/hypercarbic respiratory failure. Acute Hypoxic, Hypercarbic Respiratory Failure 2/2 PNA vs Acute on Chronic COPD w/ baseline O2 dependence vs. benzodiazepine toxicity in outpatient: - Pt afebrile today, no leukocytosis. - CXR today with marked improvement in left lung aeration. Residual left basilar opacity with volume loss. - BC x2 negative. Bronchial washings with no growth. Had therapeutic aspiration of secretions two days ago. - Empiric ceftriaxone 2g daily + Azithromycin 250mg daily (started 11/21 just before midnight). Procalcitonin negative. Antibiotics d/c'ed after day 5, continues to be afebrile. - Currently saturating well on 3LNC, feeling well. Stable for transfer out of ICU to Telemetry level of care. - DuoNeb q4h scheduled, q2h PRN. Macrocytic Anemia 2/2 EtOH use: - Patient with macrocytic anemia, MCV 104 on admit. - Hgb 9.3, relatively stable s/p 1x RBC transfusion on 11/23 with appropriate rise during admission. - Folate level normal at 21.02. - B12 wnl. - Continue folic acid 1mg po daily. Elevated troponin/BNP: - Troponin downtrended, peaked at 0.267. Suspect demand in setting of respiratory failure. - BNP 1999 on admission. - Echo hyperdynamic with no akinesis/hypokinesis. - EKG without ST or T wave changes. - BP normotensive. EtOH Abuse: - Patient had be detoxifying at home with scheduled Librium since November 12. On propofol then ativan Q6H during admission, currently held. - Doing well and without symptoms of withdrawal. - Continue AWSS scoring, though unlikely to experience withdrawal symptoms given length of time since last drink. History of ETOH abuse with hepatitis/cirrhosis/transaminitis: - Transaminitis to low 100s on admit. - INR within normal limits. Electrolyte Derangement: - Formerly on ICU repletion protocol. - Mg, Phos, K normal today. PO intake encouraged, repeat levels tomorrow. Smoking Hx: - Nicotine patches daily. FEN/GI: Carb controlled diet DVT Ppx: Heparin SQ q12. Code - Full Code Dispo - Telemetry Admission and Anticipated Discharge Date Admission Date: November 22, 2019 Supervising Physician Co-Signing Physician Notes Patient seen and examined with PGY-2 Dr. Ochoa. Agree with history, exam findings, assessment and plan of care. In brief, Ms. Aguirre is a 59 year old female with history of COPD (on chronic O2), ETOH use disorder admitted with confusion and became unresponsive and hypoxic in the ED. She remains extubated. She is now on NC O2. Throat continues to be a bit uncomfortable. She is eating--feels that her appetite is picking back up. On exam, she is breathing comfortably without use of accessory muscles. Oxymask on. 1. Acute, hypoxic, hypercarbic respiratory failure secondary to pneumonia and acute COPD exacerbation. Blood cultures neg. Completed 5 days of ceftriaxone and azithromycin. Extubated on 11/25. O2 support as indicated. Transfer to tele this afternoon. 2. macrocytic anemia. s/p 1 unit PRBCs. 3. elevated trop and BNP. Demand in nature. Echo with hyperdynamic motion but no akinesis or hypokinesis. 4. Severe alcohol use disorder. Motivated to work towards cessation. She was previously doing an outpatient Librium taper. Will plan to discuss outpatient vs inpatient therapy/rehab. AWSS, but at this point, is likely through withdrawal. 5. ETOH cirrhosis. Trending LFTs. INR normal. 6. Electrolyte derangement. Repleting. Dispo: pending clinical improvement. Subjective Weaned from BiPAP to Oxymask to 3LNC this morning to this afternoon after tracheal suctoining to remove mucous. Patient with good appetite this afternoon, feeling "so much better compared to yesterday". Denies chest pain. Some sore throat from intubation. Has not had a BM in several days though had food for the first time in several days today. Denies fevers or chills. Review of Systems Review of Systems: All systems reviewed & are unremarkable except as noted in Subjective Physical Exam Constitutional: WD/WN, vitals as above Eyes: PERRL, conjunctivae normal, anicteric sclerae Neck: normal visual inspection Respiratory: normal respiratory effort Auscultation: no crackles intermittent wheeze Cardiovascular: RRR, no murmur, no edema Gastrointestinal (Abdomen): normal bowel sounds, soft, nontender, no hepatosplenomegaly Skin: no rashes, warm and dry Psychiatric: A+Ox3, euthymic affect Results & Data Results & Data ([facility]) Vital Signs (Past 12 Hours) Vital Signs Temp Pulse Pulse Resp BP Pulse Ox 11/28/19 03:20 70 18 92 11/28/19 03:18 70 18 94 11/28/19 02:00 71 31 H 93 11/28/19 01:58 71 34 H 91/54 L 94 11/28/19 01:28 71 31 H 87/56 L 92 11/28/19 01:00 71 31 H 91 11/28/19 00:58 72 32 H 93/50 L 92 11/28/19 00:28 72 33 H 87/50 L 90 11/28/19 00:00 36.6 C 73 32 H 93 11/27/19 23:58 77 27 H 93/51 L 92 11/27/19 23:28 76 33 H 93/57 L 95 11/27/19 23:08 77 20 100 11/27/19 23:07 77 20 100 11/27/19 23:00 77 26 H 96 11/27/19 22:58 77 29 H 96/55 L 96 11/27/19 22:29 85 30 H 100/71 95 11/27/19 22:15 95 H 20 95 11/27/19 22:00 73 17 87 L 11/27/19 21:58 89 15 110/56 L 11/27/19 21:28 84 17 89/50 L 86 L 11/27/19 21:01 85 31 H 86 L 11/27/19 20:58 87 26 H 93/52 L 87 L 11/27/19 20:28 88 17 106/51 L 85 L 11/27/19 20:01 36.9 C 82 21 95 11/27/19 19:58 81 18 96/58 L 95 11/27/19 19:49 80 24 93 11/27/19 19:28 81 31 H 97/50 L 87 L 11/27/19 19:00 85 22 100 11/27/19 18:58 85 23 95/58 L 100 Resident Activity Tracking Resident Involvement: Resident Care Provided Care Provided: Adult Hospital Medicine
--- NOTE | 2019-11-28 07:33 | Critical Care Progress Note ---
Date of Service November 28, 2019 Assessment & Plan (1) Respiratory failure: Impression: 59-year-old female with history of COPD and alcohol dependence undergoing alcohol detoxification at home admitted with altered mental status, hypoxemic and hypercarbic respiratory failure, lower extremity edema, and metabolic alkalosis with respiratory acidosis. 24-hour events: Patient underwent urgent bronchoscopy yesterday morning for mucous plug. Significant secretions were identified in the left mainstem bronchus which were lavaged free. Her respiratory status improved after removal of the plug. She was placed on aggressive pulmonary toilet regiment. She did require nasotracheal suctioning last evening and remained on BiPAP although her respiratory status appears improved at this point time. Recommendations: 1. Acute on chronic hypoxemic and hypercarbic respiratory failure: Appears stabilized at this point time. Would continue nocturnal BiPAP 10/5 cmH2O pending outpatient sleep study. She does have hypercarbic respiratory failure at baseline likely secondary to underlying obstructive lung disease. Outpatient PFTs recommended. Smoking cessation again discussed with the patient. Wean oxygen to maintain saturations 88 to 90%. 2. Metabolic alkalosis: Unclear etiology. Previous blood gases showed PCO2 to be running in the 50 range. Now appears resolved. Follow clinically 3. Elevated troponin: Suspect supply demand mismatch. Patient did have lower extremity edema prior to presentation. Troponin is decreasing. No obvious EKG changes. With normal echocardiogram, suspect this was supply demand mismatch. No indication for serial imaging at this point time. Continue to follow clinically 4. History of alcohol abuse: Continue high-dose thiamine and folate. Doing well clinically 5. Lower lower lobe atelectasis: Continue flutter valve, incentive spirometry, and out of bed. Chest x-ray in a.m. 6. Probable pneumonia: Cultures all negative and the patient never manifested an elevated white blood cell count. She completed 5 days of Rocephin and azithromycin. Repeat bronchoscopy samples from yesterday are currently pending. 7. Anemia: Possibly due to effects of alcohol. Reticulocyte count and ferritin were normal however total iron was low. Review of her outpatient clinical notes indicate that this was a problem before and she had been referred for consideration of GI evaluation with endoscopy. Hemoglobin currently stable but if she has continued losses, will consult gastroenterology for consideration of endoscopy. 8. Abnormal LFTs: Continue to trend at this point time. Likely sequelae of prior alcohol use. 9. Unable to do swallow evaluation yesterday due to respiratory status. Speech therapy to reevaluate today. Hopefully we can get a diet in place. 10. Persistent fevers: Now resolved Continues to show slow and steady progress. We will see how she does getting out of bed and with speech therapy. If her respiratory status remains stable, may consider transfer out of the ICU this afternoon or tomorrow. If she has continued respiratory issues, continued monitoring may be appropriate (2) Acute alteration in mental status: (3) Metabolic alkalosis: Admission and Anticipated Discharge Date Admission Date: November 22, 2019 Subjective Patient seen and examined. EMR reviewed. Discussed with ICU nurse and critical care [facility]. Patient has done reasonably well overnight. She did undergo bronchoscopy yesterday morning for a mucous plug. She did well until the evening hours where she developed increasing hypoxemia and had to have a nasal trumpet placed to assist with nasotracheal suctioning. She was maintained on BiPAP overnight. This morning she states she is feeling well. She is ready to have the BiPAP removed. She appears in no respiratory distress whatsoever. Review of Systems Review of Systems: All systems reviewed & are unremarkable except as noted in HPI & below Physical Exam Constitutional: well developed; no acute distress and not ill appearing Neck: trachea midline, no thyromegaly Respiratory: normal respiratory effort Cardiovascular: Rate/Rhythm: regular rate Heart Sounds: normal S1 and normal S2 Extremities: + edema Gastrointestinal (Abdomen): normal bowel sounds, soft, nontender, no hepatosplenomegaly Musculoskeletal: Extremities: extremities normal to inspection Skin: no rashes, warm and dry Lymphatic: no cervical lymphadenopathy Results & Data Results & Data ([facility]) Vital Signs (Past 12 Hours) Vital Signs Temp Pulse Pulse Resp BP Pulse Ox 11/28/19 03:20 70 18 92 11/28/19 03:18 70 18 94 11/28/19 02:00 71 31 H 93 11/28/19 01:58 71 34 H 91/54 L 94 11/28/19 01:28 71 31 H 87/56 L 92 11/28/19 01:00 71 31 H 91 11/28/19 00:58 72 32 H 93/50 L 92 11/28/19 00:28 72 33 H 87/50 L 90 11/28/19 00:00 36.6 C 73 32 H 93 11/27/19 23:58 77 27 H 93/51 L 92 11/27/19 23:28 76 33 H 93/57 L 95 11/27/19 23:08 77 20 100 11/27/19 23:07 77 20 100 11/27/19 23:00 77 26 H 96 11/27/19 22:58 77 29 H 96/55 L 96 11/27/19 22:29 85 30 H 100/71 95 11/27/19 22:15 95 H 20 95 11/27/19 22:00 73 17 87 L 11/27/19 21:58 89 15 110/56 L 11/27/19 21:28 84 17 89/50 L 86 L 11/27/19 21:01 85 31 H 86 L 11/27/19 20:58 87 26 H 93/52 L 87 L 11/27/19 20:28 88 17 106/51 L 85 L 11/27/19 20:01 36.9 C 82 21 95 11/27/19 19:58 81 18 96/58 L 95 11/27/19 19:49 80 24 93 Laboratory Results 11/28/19 04:09 11/28/19 04:09 Bronchoscopy cultures from yesterday are currently pending Diagnostic Findings Chest x-ray from today was independently reviewed. There continues to be manifest left lower lobe atelectasis however the left upper lobe is now much better aerated. Right lung remains clear. Coding Level of Care Code 95465 Subseq [facility] 3 Diagnoses Respiratory failure J96.01; J96.02 Chronicity: acute Respiratory failure complication: hypoxia and hypercapnia Acute alteration in mental status R41.82 Metabolic alkalosis E87.3 (1) Respiratory failure Chronicity: acute Respiratory failure complication: hypoxia and hypercapnia Qualified Code(s): J96.01 - Acute respiratory failure with hypoxia; J96.02 - Acute respiratory failure with hypercapnia
[2019-11-28] MEDS: SODIUM CHLOR 7% 4 ML NEB NEB SCH ×2 (07:52→20:27)
--- NOTE | 2019-11-28 08:08 | XRay Report ---
XR chest 1V portable CLINICAL HISTORY: Respiratory failure. COMPARISON STUDY: Chest CT November 22, 2019. Chest radiograph November 27, 2019. FINDINGS: There is no pneumothorax. A probable small left pleural effusion is noted. Left lung aerati on has markedly improved since exam of November 27, 2019. There is persistent left lower lung airspace op acity with volume loss. There is elevation of the left hemidiaphragm. There is mild right basilar opa city. Vascularity is normal. IMPRESSION: 1. Marked improvement in left lung aeration. Residual left basilar opacity with volume loss. 2. Mild right basilar opacity. ACT 112: Negative or not required by law. Electronically signed by: Jeffry Milian M.D. 11/28/2019 8:07 AM
[2019-11-28] MEDS: FOLIC ACID 1 MG TAB PO SCH (09:52)
[2019-11-28] MEDS: NICOTINE 14 MG/24 HR PATCH TD SCH (09:52)
[2019-11-28] MEDS: LANSOPRAZOLE 30 MG SOLTAB NG SCH (09:53)
[2019-11-28] MEDS: HEPARIN SOD 5,000 UNIT/0.5 ML VIAL SQ SCH ×2 (09:53→23:19)
[2019-11-28] MEDS: INSULIN GLARGINE SOLOSTAR 100 UNITS/ML 3 ML PEN SC SCH (10:19)
[2019-11-28] MEDS ORDERED: Nursing to Pharmacy Communication SCH (15:15)
[2019-11-28] MEDS ORDERED: INSULIN ASPART 100 UNITS/ML 3 ML PEN SC SCH (16:30)
[2019-11-28] MEDS ORDERED: INSULIN GLARGINE SOLOSTAR 100 UNITS/ML 3 ML PEN SC SCH (21:00)
[2019-11-29] MEDS: TRIMETHOPRIM/POLYMYXIN B OPL SCH ×7 (03:07→19:11)
[2019-11-29] MEDS: ALBUT/IPRATROP 3MG/0.5MG NEB 3 ML VIAL NEB SCH ×6 (03:20→23:33)
--- NOTE | 2019-11-29 06:51 | Hospitalist Progress Note ---
Date of Service November 29, 2019 Assessment & Plan (1) Acute on chronic respiratory failure with hypoxia and hypercapnia: Lakeisha is a 59yo female with history of O2 dependent COPD, EtOH abuse currently undergoing outpatient detoxification who presented with 1-2 days of SOB, confusion, slurred speech. Patient became unresponsive and hypoxic in the ER requiring urgent intubation for hypoxic/hypercarbic respiratory failure. Acute Hypoxic, Hypercarbic Respiratory Failure 2/2 PNA vs Acute on Chronic COPD w/ baseline O2 dependence vs. benzodiazepine toxicity in outpatient: - Pt afebrile for several days, not currently on Abx and with continued improvement in symptoms. - CXR today: Persistent left basilar opacity with interval increase in left lung volume loss. The findings favor atelectasis although consolidation could appear similar. - BC x2 negative. Bronchial washings with no growth. Had therapeutic aspiration of secretions several days ago. - Empiric ceftriaxone 2g daily + Azithromycin 250mg daily (started 12 just before midnight). Procalcitonin negative. Antibiotics d/c'ed after day 5. - Currently saturating well on 3LNC, feeling well. - DuoNeb q4h scheduled, q2h PRN. - Continue to wean O2 as tolerated, encouraged use of incentive spirometer and flutter valve. - PT/OT evaluations to determine functional status prior to discharge. - Patient is on steroids for about one month (prednisone 5mg daily) for COPD, holding at this time. Macrocytic Anemia 2/2 EtOH use: - Patient with macrocytic anemia, MCV 104 on admit. - Hgb 9.2 today, stable s/p 1x RBC transfusion on 11/23 with appropriate rise during admission. - Folate level normal at 21.02. - B12 wnl. - Continue folic acid 1mg po daily. Elevated troponin/BNP: - Troponin downtrended, peaked at 0.267. Suspect demand in setting of respiratory failure. - BNP 2000 on admission. - Echo hyperdynamic with no akinesis/hypokinesis. - EKG without ST or T wave changes. - BP normotensive. - Have resumed patient's spironolactone; suspect some diuresis may benefit patient's respiratory status as well as trace edema in the lower extremities. EtOH Abuse: - Patient had been detoxifying at home with scheduled Librium since November 12. On propofol then ativan Q6H While in ICU, no longer on benzodiazepine or sedative medications. - Doing well and without symptoms of withdrawal. - Continue AWSS scoring, though unlikely to experience withdrawal symptoms given length of time since last drink. History of ETOH abuse with hepatitis/cirrhosis/transaminitis: - Transaminitis to low 100s on admit. - INR within normal limits. Electrolyte Derangement: - Formerly on ICU repletion protocol. - Mg, Phos, K normal. BMP AM. Smoking Hx: - Nicotine patches daily. FEN/GI: Carb controlled diet DVT Ppx: Heparin SQ q12. Code - Full Code Dispo - Telemetry Admission and Anticipated Discharge Date Admission Date: November 22, 2019 Supervising Physician Co-Signing Physician Notes Patient seen and examined with PGY-2 Dr. Ochoa. Agree with history, exam findings, assessment and plan of care. In brief, Ms. Aguirre is a 59 year old female with history of COPD (on chronic O2), ETOH use disorder admitted with confusion and became unresponsive and hypoxic in the ED. She remains extubated. She is now on NC O2 and breathing comfortably. Would like to walk in the te[place] with assistance--feels that this would be very helpful for her continued recovery. She has asked her to get rid of all the alcohol in the home. Does wish to do inpatient rehab. Does have an outpatient counselor. On exam, she is breathing comfortably without use of accessory muscles. Diminished air movement throughout. No wheezes, rales or ronchi. Heart rate is regular. No murmur. Trace lower extremity edema. 1. Acute, hypoxic, hypercarbic respiratory failure secondary to pneumonia and acute COPD exacerbation. Blood cultures neg. Completed 5 days of ceftriaxone and azithromycin. Extubated on 11/25. O2 support as indicated. Doing well. Continue to wean O2. Previously on 5mg daily prednisone. We are holding this--no clear indication to restart this right now. 2. macrocytic anemia. s/p 1 unit PRBCs. 3. elevated trop and BNP. Demand in nature. Echo with hyperdynamic motion but no akinesis or hypokinesis. 4. Severe alcohol use disorder. Motivated to work towards cessation. She was previously doing an outpatient Librium taper. AWSS, but at this point, is likely through withdrawal. 5. ETOH cirrhosis. Trending LFTs. INR normal. Restarted spironolactone. 6. Deconditioning. From critical illness. Would benefit from acute rehab. Dispo: Moving towards discharge. Anticipate that if she has a bed in the next day or two, we can discharge to acute rehab. Subjective Patient without acute events overnight. Feeling weak overall but feels her breathing is better, and states that "my nasal cannula fell off for a little bit and I didn't even notice". Has been using the incentive spirometer but struggles to inhale for very long into the tube. Denies fevers or chills, chest pain, constipation or diarrhea, nausea or vomiting. Has good appetite. No dizziness or headache. Slight tremor but she feels that it is "getting better". She wears 2LNC at night for bedtime at baseline. Endorses a history of snoring, and "she is suppsoed to get tested for slepe apnea". Sleeping well with BiPAP. Does not desire inpatient rehab neither for physical rehab or alcohol rehab. Is interested in outpatient services. Review of Systems Review of Systems: All systems reviewed & are unremarkable except as noted in Subjective Physical Exam Constitutional: WD/WN, vitals as above Eyes: PERRL, conjunctivae normal, anicteric sclerae Neck: normal visual inspection Respiratory: normal respiratory effort, lungs clear to auscultation Auscultation: no crackles diminished breath sounds bilateral bases Cardiovascular: RRR, no murmur, no edema Gastrointestinal (Abdomen): normal bowel sounds, soft, nontender, no hepatosplenomegaly Skin: no rashes, warm and dry Psychiatric: A+Ox3, euthymic affect Results & Data Results & Data ([facility]) Vital Signs (Past 12 Hours) Vital Signs Temp Pulse Pulse Resp BP BP Pulse Ox 11/29/19 04:54 36.7 C 78 21 114/69 90 11/29/19 03:22 76 20 91 11/29/19 03:21 76 20 91 11/28/19 23:35 36.6 C 91 H 22 116/66 93 11/28/19 23:17 89 89 21 99 11/28/19 23:00 85 11/28/19 22:05 76 20 96 11/28/19 20:32 88 20 92 11/28/19 20:27 88 20 96 11/28/19 19:30 37 C 95 H 87 18 104/64 94 Resident Activity Tracking Resident Involvement: Resident Care Provided Care Provided: Adult Hospital Medicine
[2019-11-29] MEDS: SODIUM CHLOR 7% 4 ML NEB NEB SCH ×2 (07:31→19:07)
--- NOTE | 2019-11-29 08:00 | XRay Report ---
XR chest 1V portable CLINICAL HISTORY: Respiratory failure. COMPARISON STUDY: Chest radiograph November 28, 2019. FINDINGS: There is no pneumothorax. Small left pleural effusion is noted. There is persistent left ba silar opacity with evidence for volume loss. A hiatal hernia is noted. No evidence for pulmonary oseas a. Right lung is clear. Patient is rotated. Left lung volume loss has mildly increased with mediastin al shift. IMPRESSION: Persistent left basilar opacity with interval increase in left lung volume loss. The fin dings favor atelectasis although consolidation could appear similar. Small left pleural effusion. ACT 112: Negative or not required by law. Electronically signed by: Jeffry Milian M.D. 11/29/2019 7:59 AM
[2019-11-29] MEDS: INSULIN ASPART 100 UNITS/ML 3 ML PEN SC SCH ×4 (08:26→20:24)
[2019-11-29] MEDS: FOLIC ACID 1 MG TAB PO SCH (08:28)
[2019-11-29] MEDS: LANSOPRAZOLE 30 MG SOLTAB NG SCH (08:29)
[2019-11-29] MEDS: NICOTINE 14 MG/24 HR PATCH TD SCH (08:30)
[2019-11-29 09:04] LABS: BUN Creatinine Ratio 43.5 (10-20); Calcium 8.9 mg/dl (8.5-10.1); Creatinine Clr Calc Pharmacy 128.6 ml/min; Est GFR (African American) 130.1; Est GFR (Non-African American) 112.3; Magnesium 2.1 mg/dl (1.8-2.4)
[2019-11-29 09:50] LABS: Phosphorus 3.7 mg/dl (2.5-4.9)
--- NOTE | 2019-11-29 10:52 | Pulmonology Progress Note ---
Date of Service November 29, 2019 Assessment & Plan (1) Respiratory failure: 59-year-old female with a past medical history of alcoholism, obesity, diastolic heart failure (grade 1 diastolic dysfunction), chronic hypercapnic respiratory failure, tobacco abuse and asthma who presented in respiratory failure with left-sided lung collapse. Acute on chronic hypoxemic and hypercarbic respiratory failure: Appears stabilized at this point time. Would continue nocturnal BiPAP 10/5 cmH2O pending outpatient sleep study. She does have hypercarbic respiratory failure at baseline likely secondary to underlying obstructive lung disease. Outpatient PFTs recommended. Smoking cessation encouraged. Continue flutter valve, incentive spirometer, CPT and physical therapy. Her cough appears to be relatively intact today. She does continue to demonstrate some mild left lower lobe collapse on chest x-ray today. No bronchoscopic intervention required today. Continue to wean her oxygen to maintain sats 88 to 92%.I suspect that her hypoxemia is related to shunt physiology from atelectasis and obesity. She does have some diastolic heart failure and would likely benefit from diuresis. Chronicity: acute Respiratory failure complication: hypoxia and hypercapnia Qualified Code(s): J96.01 - Acute respiratory failure with hypoxia; J96.02 - Acute respiratory failure with hypercapnia (2) Acute alteration in mental status: (3) Metabolic alkalosis: (4) Atelectasis of left lung: Admission and Anticipated Discharge Date Admission Date: November 22, 2019 Subjective Patient is laying in bed today with a family member at bedside. She says she tried to get up last night and was told to use bedpan because she was unsteady on her feet. She is upset that she is not able to ambulate to the commode. She is using her incentive spirometer every hour. She denies any chest pains, fevers or chills. Review of Systems Review of Systems: All systems reviewed & are unremarkable except as noted in HPI & below Physical Exam Constitutional: well developed; no acute distress and not ill appearing Neck: trachea midline, no thyromegaly Respiratory: normal respiratory effort Cardiovascular: Rate/Rhythm: regular rate Heart Sounds: normal S1 and normal S2 Gastrointestinal (Abdomen): normal bowel sounds, soft, nontender, no hepa tosplenomegaly Musculoskeletal: Extremities: extremities normal to inspection Skin: no rashes, warm and dry Lymphatic: no cervical lymphadenopathy Results & Data Results & Data ([facility]) Vital Signs (Past 12 Hours) Vital Signs Temp Pulse Pulse Resp BP BP Pulse Ox 11/29/19 07:36 70 22 94 11/29/19 07:34 70 22 94 11/29/19 07:19 97.9 F 71 22 101/61 89 L 11/29/19 04:54 98.1 F 78 21 114/69 90 11/29/19 03:22 76 20 91 11/29/19 03:21 76 20 91 11/28/19 23:35 97.9 F 91 H 22 116/66 93 11/28/19 23:17 89 89 21 99 11/28/19 23:00 85 I personally reviewed labs, chest imaging and vital signs. PG Care Time/CCT Total # of Minutes Spent Total Time Spent with Patient: Total time spent is greater than 50% in coordination of care (as documented) at patient's floor/unit and/or counseling patient: Coding Level of Care Code 81437 Subseq [facility] 3 Diagnoses Respiratory failure J96.01; J96.02 Chronicity: acute Respiratory failure complication: hypoxia and hypercapnia Acute alteration in mental status R41.82 Metabolic alkalosis E87.3 Atelectasis of left lung J98.11
[2019-11-29] MEDS: HEPARIN SOD 5,000 UNIT/0.5 ML VIAL SQ SCH ×2 (11:58→22:31)
[2019-11-29 13:58] LABS: Basophils # (auto) 0.04 K/uL (0-0.2); Eosinophils # (auto) 0.22 K/uL (0-0.5); Eosinophils % (auto) 5.3 %; Hematocrit (blood only) 31.5 % (37-47); Hemoglobin 9.2 g/dL (12.0-16.0); Immature Granulocytes # (auto) 0.06 K/uL (0.00-0.02); Immature Granulocytes % (auto) 1.4 %; Lymphocytes # (auto) 0.71 K/uL (1.2-3.4); Lymphocytes % (auto) 17.1 %; Mean Corpuscular Hemoglobin 29.1 pg (25-34); Mean Corpuscular Hgb Conc 29.2 g/dL (32-36); Mean Corpuscular Volume 99.7 fL (80-100); Mean Platelet Volume 9.3 fL (7.4-10.4); Monocytes # (auto) 0.53 K/uL (0.11-0.59); Monocytes % (auto) 12.8 %; Neutrophils # (auto) 2.59 K/uL (1.4-6.5); Neutrophils % (auto) 62.4 %; Platelet Count 333 K/uL (130-400); RDW Coefficient of Variation 18.6 % (11.5-14.5); RDW Standard Deviation 68.2 fL (36.4-46.3); Red Blood Count 3.16 M/uL (4.2-5.4); White Blood Count 4.15 K/uL (4.8-10.8)
--- NOTE | 2019-11-29 15:08 | Pharmacy Report ---
Pharmacy Glycemic Sign Off Nt - Date of Service November 29, 2019 - Assessment & Plan ASSESSMENT: * Pharmacy was consulted by Dr Tena on 11/23 for glycemic control and to write orders per [facility] inpatient glycemic control protocol. * Patient has been receiving/requiring 0 units of insulin per day for adequate glycemic control - over the past 3 days * BSGs ranging 76-105 mg/dl * Regimen has only required minor adjustments over the past 48hrs to achieve this level of control * Do not anticipate further changes in patient status that would quickly deteriorate glycemic control (i.e. patient to be NPO for upcoming procedure, steroids tapering, starting tube feedings, etc). * Please see recommendations for outpatient antidiabetic regimen below. PLAN FOR INPATIENT GLYCEMIC CONTROL: No changes needed to current regimen. * Continue to hold basal insulin at this time / not warranted * Continue NovoLog per scale ACHS/Q6hrs while NPO * Goal range = 120 - 160 mg/dl * CF = 40 mg/dl/unit * CR = 1 unit for ever -- g CHO consumed * Pharmacy is signing off of glycemic consult and will no longer be making adjustments to inpatient regimen. Please feel free to re-consult if needed. Thank you. DISCHARGE RECOMMENDATIONS: * A1c 4.6 % on 11/23 - Patient not diabetic and is not on any medications at home
[2019-11-29] MEDS: SPIRONOLACTONE 25 MG TAB PO SCH (20:23)
[2019-11-30] MEDS: ALBUT/IPRATROP 3MG/0.5MG NEB 3 ML VIAL NEB SCH ×4 (03:09→15:31)
[2019-11-30 06:33] LABS: BUN Creatinine Ratio 27.1 (10-20); Calcium 8.8 mg/dl (8.5-10.1); Creatinine Clr Calc Pharmacy 112.2 ml/min; Est GFR (African American) 124.4; Est GFR (Non-African American) 107.4; Magnesium 1.8 mg/dl (1.8-2.4); Phosphorus 3.3 mg/dl (2.5-4.9)
[2019-11-30] MEDS: SODIUM CHLOR 7% 4 ML NEB NEB SCH (06:58)
[2019-11-30] MEDS: NICOTINE 14 MG/24 HR PATCH TD SCH (08:30)
[2019-11-30] MEDS: FOLIC ACID 1 MG TAB PO SCH (08:30)
[2019-11-30] MEDS: SPIRONOLACTONE 25 MG TAB PO SCH (08:30)
[2019-11-30] MEDS: LANSOPRAZOLE 30 MG SOLTAB NG SCH (08:30)
--- NOTE | 2019-11-30 08:36 | Pulmonology Progress Note ---
Date of Service November 30, 2019 Assessment & Plan (1) Atelectasis of left lung: Impression: 59-year-old female with extensive history of alcohol and tobacco abuse admitted with respiratory failure and intubated. She has issues with pulmonary toilet and persistent left lower lobe atelectasis. Recommendations: 1. Atelectasis: Continue aggressive pulmonary toilet including incentive spirometry and flutter valve. Out of bed to chair as tolerated. Recommend follow-up chest x-ray in 2 to 4 weeks. 2. History of tobacco abuse: Smoking cessation recommended. She is using a nicotine patch and appears to be responding favorably. Consideration for outpatient pulmonary function testing may be appropriate. She is not bronchospastic and does not require aggressive steroids or antibiotics at this point time. Bronchodilators as needed. 3. Hypoxemic respiratory failure: Secondary to atelectasis and underlying obstructive lung disease. Continue to wean oxygen saturation as tolerated for sats greater than or equal to 88%. 4. Hypercapnic respiratory failure: Appears resolving. Outpatient sleep study recommended. Patient appears to be responding favorably. Aggressive physical therapy and Occupational Therapy is recommended. (2) Acute on chronic respiratory failure with hypoxia and hypercapnia: (3) COPD exacerbation: Admission and Anticipated Discharge Date Admission Date: November 22, 2019 Subjective Patient seen and examined. EMR reviewed. She is sitting up in chair at bedside. She just finished breakfast. She states she is feeling better. She feels stronger and is anxious to participate in therapy. She wants to get up and walk around. She is coughing and expectorating phlegm. No chest pain palpitations. Her oxygen has been weaned down to 4 L nasal cannula. She is on baseline oxygen at home at night typically. She is doing well off of cigarettes and alcohol. Review of Systems Review of Systems: All systems reviewed & are unremarkable except as noted in HPI & below Physical Exam Constitutional: well developed; no acute distress and not ill appearing Neck: trachea midline, no thyromegaly Respiratory: normal respiratory effort Cardiovascular: Rate/Rhythm: regular rate Heart Sounds: normal S1 and normal S2 Gastrointestinal (Abdomen): normal bowel sounds, soft, nontender, no hepato splenomegaly Musculoskeletal: Extremities: extremities normal to inspection Skin: no rashes, warm and dry Lymphatic: no cervical lymphadenopathy Results & Data Results & Data ([facility]) Vital Signs (Past 12 Hours) Vital Signs Temp Pulse Pulse Resp BP BP Pulse Ox 11/30/19 08:11 88 24 121/76 95 11/30/19 06:59 80 18 95 11/30/19 03:09 79 79 18 93 11/30/19 03:00 68 18 93 11/30/19 02:53 36.6 C 85 18 131/71 93 11/29/19 23:44 37.1 C 82 20 105/48 L 100 11/29/19 23:34 84 84 20 94 11/29/19 23:00 85 Laboratory Results 11/29/19 13:45 11/30/19 05:40 Diagnostic Findings Chest x-ray from yesterday was reviewed and shows persistent left lower lobe collapse. Prior film November 03, 2019 demonstrated that the lung was well aerated at that point time PG Care Time/CCT Total # of Minutes Spent Total Time Spent with Patient: Total time spent is greater than 50% in coordination of care (as documented) at patient's floor/unit and/or counseling patient: Coding Level of Care Code 71717 Subseq [facility]osp Care L[facility] 2 Diagnoses Atelectasis of left lung J98.11 Acute on chronic respiratory failure with hypoxia and hypercapnia J96.21; J96.22 COPD exacerbation J44.1
[2019-11-30] MEDS: HEPARIN SOD 5,000 UNIT/0.5 ML VIAL SQ SCH (12:40)
--- NOTE | 2019-11-30 19:20 | Discharge Summary ---
Date of Service November 30, 2019 Admission HPI Per Admitting Provider Lakeisha Aguirre is a 59yo female with history of COPD on 2L O2 qHS and PRN, EtOH abuse with alcoholic hepatitis and cirrhosis presenting with hypoxic/hypercarbic respiratory failure. History obtained through discussion with and ER staff as well as chart review. Patient intubated and sedated at time of encounter. Patient has be detoxifying at home with scheduled Librium since November 12. Overall she has been doing well with that. Over the last two weeks she has been complaining of increased lower extremity edema, R>L. She had an outpatient venous doppler of the RLE performed on 11/11/19 which was negative for DVT. She was started on Spironolactone. She reports decreased UOP over the last two days. Patient was behaving strangely today, confused, possible hallucinations about bears in her home with some shortness of breath. She became somnolent earlier today and took a nap. Her reports HR of 110 and oxygen saturation of 87% despite being on her home oxygen. Upon arrival to the ER she ws found to be afebrile, tachycardic at 101, BP 136/79, RR of 30 saturating 92 on 5L NC. Patient was initially somnolent but arousable with slurred speech. She was following commands and moving all extremities. Patient then became minimally responsive, hypoxic with saturations reportedly in the 50's and apneic episodes. She was intubated for hypoxic/hypercarbic respiratory failure. ER Course: Thiamine 100mg, Folic acid 1mg, Albuterol 12mL/neb, Solumedrol 125mg IV Principal Diagnosis respiratory failure Discharge Exam gen aao pleasnat nad heent nc at mmm breathing unlabored no accessory muscles good effort skin no rashes no pallor or icterus neuro no focal deficits. OT notes reviewed d/w nursing - pt walking steadily around halls w walker no assist otherwise. Discharge Data Allergies Allergy/AdvReac Type Severity Reaction Status Date / Time RACIEL Inhibitors AdvReac Mild COUGH Verified 07/16/19 20:39 naltrexone [From Vivitrol] AdvReac Hair Verified 07/16/19 20:39 loss/ingrown hairs over body Consultations 11/22/19 20:16 ED Decision to Admit Stat 11/22/19 22:20 Consult Case Management - Discharge Planning Routine Consult Non Ferrous Material Handler Routine 11/30/19 17:15 Consult Case Management - Discharge Planning Routine Ordered Studies 11/22/19 18:59 CT head/brain wo con Stat 11/22/19 19:35 CT angio chest PE protocol Stat 11/23/19 US duplex portal hepatic veins Routine 11/23/19 11:00 US liver Routine 11/25/19 11:54 US venous doppler LE BI Routine Hospital Course (1) Acute on chronic respiratory failure with hypoxia and hypercapnia: Lakeisha is a 59yo female with history of O2 dependent COPD, EtOH abuse currently undergoing outpatient detoxification who presented with 1-2 days of SOB, confusion, slurred speech. Patient became unresponsive and hypoxic in the ER requiring urgent intubation for hypoxic/hypercarbic respiratory failure. Acute Hypoxic, Hypercarbic Respiratory Failure 2/2 PNA vs Acute on Chronic COPD w/ baseline O2 dependence vs. benzodiazepine toxicity in outpatient: - Pt afebrile for several days, not currently on Abx and with continued improvement in symptoms. - CXR showed Persistent left basilar opacity with interval increase in left lung volume loss. The findings favor atelectasis although consolidation could appear similar. outpt f/u on this - BC x2 negative. Bronchial washings with no growth. Had therapeutic aspiration of secretions several days ago. - Empiric ceftriaxone 2g daily + Azithromycin 250mg daily (started 11/21 just before midnight). Procalcitonin negative. Antibiotics d/c'ed after day 5. - doing well on home range of supplemental O2, able to ambulate steadily, main reason for ongoing hospital stay had been need for rehab - but now seems to have improved well enough that home w home PT is reasonable. Macrocytic Anemia 2/2 EtOH use: - Patient with macrocytic anemia, MCV 104 on admit. - Hgb overall stable s/p 1x RBC transfusion on 11/23 with appropriate rise during admission. - Folate level normal at 21.02. - B12 wnl. - Continue folic acid 1mg po daily. Elevated troponin/BNP: - Troponin downtrended, peaked at 0.267. Suspect demand in setting of respiratory failure. - BNP 2000 on admission. - Echo hyperdynamic with no akinesis/hypokinesis. - EKG without ST or T wave changes. - BP normotensive. - Have resumed patient's spironolactone EtOH Abuse: - Patient had been detoxifying at home with scheduled Librium since November 12. On propofol then ativan Q6H While in ICU, but no longer on benzodiazepine or sedative medications for several days prior to dc. - Doing well and without symptoms of withdrawal. - Continue AWSS scoring, though unlikely to experience withdrawal symptoms given length of time since last drink. History of ETOH abuse with hepatitis/cirrhosis/transaminitis: - Transaminitis to low 100s on admit. - INR within normal limits. Smoking Hx: - Nicotine patches daily. stable for home, outpt f/u Total Time Total Time Spent Total Time Spent (In Minutes): <30 Discharge Plan Discharge Items Patient Disposition: Home - Self-Care Reason For Visit: ETOH DETOX/AMS Discharge Diagnosis: resolved acute hypoxic respiratory failure Activity: Per Instructions section Non-emergency contact: Primary Care Provider Call non-emergency contact if: your symptoms worsen Follow-up/Referrals: Bentley Childs Jr, [Primary Care Provider] - Diet: Regular Addtl Attending Provider Instructions: Trouble breathing You were found to be in respiratory failure and this required us to place a tube down your throat (intubation) and breath for you (ventilation). You were placed in the intensive care for this. The cause of your respiratory failure could have been from pneumonia that lead to worsening of your chronic lung disease. Alternatively it could have been due to medications (benzodiazepines - Librium) that you were given as part of your outpatient detoxification from alcohol. You will need to clarify with your primary doctor if they will want you to continue the Librium when you leave the hospital. The medication may have lead to or worsened any difficulty with breathing that you had. You did not require the medication for concerns of withdrawal while you were in the hospital, so it would be reasonable to stop the medication unless there becomes a concern for withdrawal. Symptoms of withdrawal include sweating, palpitations, headaches and tremor. If you have symptoms please call or come in to get evaluated you may need to restart the medications you were taking previously. Oxygen At home you can use your pulse oximetry (oxygen saturation/%) to taper or decrease the oxygen that you are on back to a lower level than you are currently on. If you can keep your oxygen above 88% you can continue to decrease the oxygen that you are on. If you are having any shortness of breath or find that you are going below 88% you should increase the oxygen until you are feeling improvement in your symptoms. You should call your primary doctor to clarify if they will want you to restart the steroids that you were previously on. You may need to have lung function testing and a sleep study in the future. You may also require a chest x-ray in 2-4 weeks to evaluate you for improvement in your lungs. Rehabilitation It will be important for you to continue to work on strengthening and rehabilitation at home. We will work on getting you PT at home to work with you. It is very common to have decreased strength after being in the hospital and especially if you are in the intensive care unit. It may take a while to improve your capacity and you should listen to your body. Slowly increase the amount of walking and exercise that you are able to do. Smoking It would be good for you to quit smoking when you are ready since this will likely improve your lung function in the short and over the skilled nursing. There are many tools to help you to quit including nicotine replacement and medications. Some things that help quit smoking include setting a date, and removing the things in your house/car that you associate with smoking like kenji trays. If you have more questions about smoking your primary doctor will likely be happy to discuss this with you more. Follow up It will be important to follow up with your primary doctor in the next 3-5 days after discharge. Call them when you leave the hospital to set up this appointment. Return Precautions If you find that you are doing poorly at home with increased shortness of breath, fevers, or trouble breathing call or come in to get evaluated. Pending Studies at Discharge: Yes Studies:: blood cultures from 11/24 (no growth at 48 hours) Stand-Alone Forms: My [facility], Smoking Cessation Medications and DC Order Prescriptions: Continued budesonide-formoterol [Symbicort] 80-4.5 mcg/actuation Hfa Aerosol Inhaler 2 puff INHALATION BID RF: 0 Combivent Respimat 20-100 mcg/actuation mist 1 puffs INH QID Qty: 4 RF: 3 ergocalciferol (vitamin D2) 1,250 mcg (50,000 unit) capsule 50,000 unit PO MONTHLY RF: 0 clonidine 0.1 mg/24 hr patch weekly 1 patch topical WK RF: 0 spironolactone 25 mg tablet 25 mg PO BID RF: 0 Discontinued prednisone 5 mg tablet 5 mg PO DAILY RF: 0 chlordiazepoxide HCl 25 mg capsule See Rx Instructions .ROUTE .COMPLEX RF: 0 Discharge Orders: Discharge Order (Routine); Ordered 11/30/19 Ordered By: Stanislav Cardozo/Other Patient Handouts: COPD Using Inhalers, Chronic Lung Disease Quit Smoking, Alcoholism Resources, Alcohol Addiction, Chronic Lung Disease Oxygen, Chronic Lung Disease Be Active Admission Data Admit Date/Time: 11/22/19 21:25 Attending Provider: Robby Barnes Admit Provider: Dio Tena Primary Care Provider: Bentley Childs Jr Other Providers: Indy Hernanedz ; Nico Padilla ; Ankit Murillo Other Interventions: Discharge Summary Assessment (RN) Last Done: 11/30/19 17:47 DC Date/Time DO NOT enter until pt leaves facility: 11/30/19 18:37 Coding Level of Care Code D/C Day Management <30 mins Diagnoses Acute on chronic respiratory failure with hypoxia and hypercapnia J96.21; J96.22
== END 2019-11-30 18:37 | disposition home health service (06) | DRG 871 ==
LOC: ED 18:31 → 1E 21:25 → SUATTDRO 21:25 → 1E 21:42 → 2E 11-28 16:47

== ENCOUNTER 2020-08-15 01:07 | Inpatient (IN) ==
[2020-08-15] MEDS ORDERED: ALBUT/IPRATROP 3MG/0.5MG NEB 3 ML VIAL NEB ONE ×2 (01:19→13:13)
[2020-08-15] MEDS ORDERED: ALBUT/IPRATROP 3MG/0.5MG NEB 3 ML VIAL ONE ×2 (01:21→13:24)
[2020-08-15] MEDS ORDERED: MAGNESIUM SULFATE / D5W 1 GM/100 ML BAG IV STA (01:23)
--- NOTE | 2020-08-15 01:29 | Emergency Department Note ---
History of Present Illness General Chief complaint: Shortness of Breath/Dyspnea Stated complaint: SHORT OF BREATH Time Seen by Provider: 08/15/20 01:08 Source: patient Mode of arrival: EMS Limitations: clinical acuity History of Present Illness Provider complaint: Shortness of breath Onset (ago): hour(s) Location: chest Associated symptoms: + cough and + shortness of breath; no fever/chills, no headaches and no nausea/vomiting This is a 60-year-old female who presents via EMS due to significant shortness of breath. Patient does have a well-documented history of COPD and is on chronic home oxygen at 3 L/min. Patient states she began feeling more more short of breath earlier today, she and family attempted to come to the emergency department by private vehicle however her breathing worsened so they pulled over and called 911. EMS states patient initially tachypneic in the 40s, with significantly increased work of breathing. Patient was given 2 nebulizer treatments and Solu-Medrol 125 mg in route to the hospital. Machine Filler Servicer states he does feel that patient's work of breathing is slightly improved and she is able to now speak slightly better. Patient still with obvious increased work of breathing. Patient denies any other recent illness or change in medications. Patient states she has continued to use her usual breathing treatments at home and wear home oxygen as directed. Patient has previously been intubated due to significant respiratory distress. Patient denies any known sick contacts or con cern for Covid exposure. Patient does have a hx of alcohol abuse and reported to EMS that she drank 2 L of liquor earlier. Pt seen during a time of high acuity and national emergency pandemic while wearing PPE. Home Medications Medication Instructions Recorded Confirmed Type ergocalciferol (vitamin D2) 50,000 unit PO MONTHLY 11/03/19 08/15/20 History clonidine 1 patch TOPICAL WK 11/22/19 08/15/20 History acetylcysteine 200 mg/mL (20 %) 3 ml INH Q6H PRN #200 ml 12/09/19 08/15/20 Rx solution bupropion HCl 150 mg tablet,12 hr 150 mg PO BID 12/09/19 08/15/20 History sustained-release ipratropium 0.5 mg-albuterol 3 mg 3 ml INH Q8H PRN #360 ml 12/09/19 08/15/20 Rx (2.5 mg base)/3 mL nebulization soln levocetirizine 5 mg tablet 5 mg PO DAILY PRN #90 tab 12/09/19 08/15/20 Rx nebulizers #1 ea 12/09/19 03/21/20 Rx divalproex [Depakote] 500 mg PO HS 02/29/20 08/15/20 History fluticasone propionate [Allergy 1 spray INTNAS QAM PRN 02/29/20 08/15/20 History Relief (fluticasone)] pantoprazole 40 mg PO DAILY #30 tab 03/07/20 08/15/20 Rx albuterol sulfate 90 mcg/actuation 2 puff INH Q6H PRN #18 gm 03/21/20 08/15/20 Rx aerosol inhaler umeclidinium 62.5 mcg-vilanterol 1 inh INH QAM #60 ea 03/21/20 08/15/20 Rx 25 mcg/actuation powdr for inhalation prednisone 5 mg PO DAILY 08/15/20 08/15/20 History trazodone 50 - 100 mg PO HS PRN 08/15/20 08/15/20 History Allergies Allergy/AdvReac Type Severity Reaction Status Date / Time naltrexone [From Vivitrol] AdvReac Intermediate Hair Verified 08/15/20 02:54 loss/ingrown hairs over body RACIEL Inhibitors AdvReac Mild COUGH Verified 08/15/20 02:54 Past Med/Surg History Medical History (Updated 08/16/20 @ 01:43 by Krissy Archibald DO) Alcoholic hepatitis Anemia Anxiety reason for depakote Ascites Asthma Atelectasis of left lung COPD (chronic obstructive pulmonary disease) inhaler daily/prn Depression Emphysema of lung Hiatal hernia Jaundice Leukocytosis (04/21/14) On home oxygen therapy 1-2L N/C prn Sepsis due to Streptococcus pneumoniae hx of Sleep apnea cpap with 2 L oxygen at hs Tachycardia (08/17/13) Surgical History History of bronchoscopy History of colonoscopy History of ovarian cystectomy History of tooth extraction S/P removal of ovarian cyst Family History Father Myocardial infarction Hypertension Other No family history of adverse response to anesthesia Social History Smoking Status: Current every day smoker Tobacco Type: Cigarettes Cigarettes Per Day: 20; Second Hand Exposure: Yes; Hx Alcohol Use: Yes Alcohol type: wine Alcohol Intake Frequency Comment: 500 ml a day Hx Substance Use: No Preferred Language: British Communication Ability: Effective Burner Technician Required: No Beliefs That Will Affect Care: None marital status: Current Living Situation: Spouse How many Children do You have: 3 Feels Safe at Home: Yes Assistive Devices: BiPap and Oxygen - Continuous Review of Systems See HPI for pertinent positives & negatives. Other Physical Exam Vital Signs Vital Signs - 24 hr 08/15/20 01:45 08/15/20 02:14 08/15/20 02:30 Pulse Rate 108 H 113 H 107 H Pulse Rate from SpO2 Sensor 108 H 114 H 107 H Respiratory Rate 22 28 H 20 Respiratory Effort / Characteristics Respiratory Depth Respiratory Pattern Blood Pressure 151/107 H 146/105 H Blood Pressure Mean 121 118 Pulse Oximetry 100 99 100 Oxygen Delivery Method BiPAP BiPAP BiPAP Fraction of Inspired Oxygen 08/15/20 03:00 08/15/20 03:14 08/15/20 03:16 Pulse Rate 153 H 143 H 145 H Pulse Rate from SpO2 Sensor 152 H 144 H 145 H Respiratory Rate 30 H 23 24 Respiratory Effort / Characteristics Respiratory Depth Respiratory Pattern Blood Pressure 135/83 130/74 Blood Pressure Mean 100 92 Pulse Oximetry 94 95 95 Oxygen Delivery Method BiPAP BiPAP BiPAP Fraction of Inspired Oxygen 08/15/20 03:30 08/15/20 03:34 08/15/20 03:45 Pulse Rate 142 H 144 H 113 H Pulse Rate from SpO2 Sensor 143 H 145 H 113 H Respiratory Rate 21 18 22 Respiratory Effort / Characteristics Respiratory Depth Respiratory Pattern Blood Pressure 119/81 139/92 Blood Pressure Mean 93 107 Pulse Oximetry 93 94 93 Oxygen Delivery Method BiPAP BiPAP BiPAP Fraction of Inspired Oxygen 08/15/20 04:00 08/15/20 04:15 08/15/20 04:30 Pulse Rate 109 H 108 H 108 H Pulse Rate from SpO2 Sensor 109 H 108 H 108 H Respiratory Rate 28 H 27 H 25 H Respiratory Effort / Characteristics Respiratory Depth Respiratory Pattern Blood Pressure 142/78 H 123/74 109/75 Blood Pressure Mean 99 90 86 Pulse Oximetry 92 93 91 Oxygen Delivery Method BiPAP BiPAP BiPAP Fraction of Inspired Oxygen 04/05/21 04:46 08/15/20 05:00 08/15/20 05:08 Pulse Rate 112 H 104 H 112 H Pulse Rate from SpO2 Sensor 112 H 103 H Respiratory Rate 28 H 28 H 24 Respiratory Effort / Characteristics Non-Labored Spontaneous Respiratory Depth Normal Respiratory Pattern Regular Blood Pressure 125/76 121/73 Blood Pressure Mean 92 89 Pulse Oximetry 93 94 93 Oxygen Delivery Method BiPAP BiPAP Fraction of Inspired Oxygen 30 08/15/20 05:15 Pulse Rate 102 H Pulse Rate from SpO2 Sensor 101 H Respiratory Rate 30 H Respiratory Effort / Characteristics Respiratory Depth Respiratory Pattern Blood Pressure 126/78 Blood Pressure Mean 94 Pulse Oximetry 97 Oxygen Delivery Method BiPAP Fraction of Inspired Oxygen GENERAL: alert, ill appearing, well nourished, significant distress, non-toxic, sitting straight upright almost leaning forward, speaks in short phrases which EMS states is improved EYE EXAM: normal conjunctiva, PERRL and EOM's grossly intact OROPHARYNX: no exudate, no erythema, lips, buccal mucosa, and tongue normal and mucous membranes are moist NECK: supple, no nuchal rigidity, no adenopathy, non-tender LUNGS: Clear but markedly diminished to auscultation. Normal chest wall mechanics, no w/r/r, increased work of breathing, tachypnea noted HEART: no murmurs, S1 normal and S2 normal ABDOMEN: abdomen soft, non-tender, normo-active bowel sounds, no masses, no rebound or guarding. BACK: Back is symmetrical on inspection and there is no deformity, no midline tenderness, no CVA tenderness. SKIN: no rashes and no bruising UPPER EXTREMITIES: upper extremities are grossly normal. FROM, nml pulses b/l. LOWER EXTREMITIES: No pitting edema. FROM, nml pulses b/l. NEURO EXAM: Normal sensorium, cranial nerves II-XII grossly intact, normal speech, no gross weakness of arms, no gross weakness of legs. Gross sensation intact. Procedures Free Text Procedures Chemical cardioversion: Patient found to be in SVT. IV had already been established, fluids ongoing, patient was already on BiPAP. Additional cardiac specialist brought to bedside. Risk versus benefits explained to the patient and she gave verbal consent. 6 mg of adenosine was given IV. Patient appeared to have slowing and conversion to a sinus tachycardia on telemetry. Patient had no other recurrent episodes of SVT or other tachydysrhythmias while in the emergency room. No apparent complications secondary to use of adenosine, patient tolerated the procedure wel l. Course Course 0122: Pt being placed on BiPAP. Will start an hour-long nebulizer treatment. 0145: Pt appears more comfortable. 0226: Vs stable, pt resting. 0302: Pt suddenly changed to a rapid HR around 150. Repeat EKG will be performed. 0335: No prior hx of SVT/a.fib in EMR. Pt denies. Discussed trial of adenosin e, she verbalized understanding was in agreement. 0348: With 6 mg of adenosine IV, heart rate broke to a sinus tach at 110 and in the 1 teens. No other dysrhythmia identified. Patient otherwise hem odynamically stable on BiPAP. Administered Medications Albuterol (Albut/Ipratrop 3mg/0.5mg Neb 3 Ml Vial) 3 ml NEB QIDR YASMANI Stop: 09/14/20 17:22 Last Admin: 08/15/20 19:28 Dose: 3 ml Documented by: [id number] Admin: 08/15/20 17:35 Dose: Not Given Documented by: [id number] Bupropion HCl (Bupropion Sr 150 Mg Tabcr) 150 mg PO BID YASMANI Stop: 09/14/20 17:22 Last Admin: 08/15/20 23:42 Dose: Not Given Documented by: [id number] Admin: 08/15/20 18:36 Dose: 150 mg Documented by: [id number] Divalproex Sodium (Divalproex Delay Release 500 Mg Tab) 500 mg PO HS YASMANI Stop: 09/14/20 20:59 Last Admin: 08/15/20 20:22 Dose: 500 mg Documented by: [id number] Enoxaparin Sodium (Enoxaparin Inj 40 Mg/0.4 Ml Syr) 40 mg SQ Q24H YASMANI Stop: 09/14/20 17:59 Last Admin: 08/15/20 18:36 Dose: 40 mg Documented by: [id number] Folic Acid (Folic Acid 1 Mg Tab) 1 mg PO QAM YASMANI Stop: 09/14/20 08:59 Last Admin: 08/15/20 10:53 Dose: 1 mg Documented by: [id number] Guaifenesin (Guaifenesin 600 Mg Tabcr) 600 mg PO Q12 YASMANI Stop: 09/14/20 17:22 Last Admin: 08/15/20 20:22 Dose: 600 mg Documented by: [id number] Admin: 08/15/20 18:36 Dose: 600 mg Documented by: [id number] Lorazepam (Ativan) 0.5 mg in 1 mls @ 1 mls/min IV Q4H PRN PRN Reason: Alcohol Withdrawal Stop: 09/14/20 05:56 Last Admin: 08/15/20 20:18 Dose: 1 mls/min Documented by: [id number] Admin: 08/15/20 15:09 Dose: 1 mls/min Documented by: [id number] Admin: 08/15/20 10:54 Dose: 1 mls/min Documented by: [id number] Azithromycin 500 mg/ Dextrose 255 mls @ 125 mls/hr IV DAILY YASMANI Stop: 08/22/20 13:44 Last Infusion: 08/15/20 16:42 Dose: 0 mls/hr Documented by: [id number] Admin: 08/15/20 14:15 Dose: 125 mls/hr Documented by: [id number] Methylprednisolone 40 mg/ (Syringe) 0.64 mls @ 1.5 mls/min IV Q8H YASMANI Stop: 09/14/20 13:59 Last Admin: 08/15/20 21:45 Dose: 1.5 mls/min Documented by: [id number] Admin: 08/15/20 14:03 Dose: Not Given Documented by: [id number] Lorazepam (Lorazepam 1 Mg Tab) 1 - 3 mg PO UD PRN; Protocol PRN Reason: EtoH Withdrawal AWSS 6-10+ Stop: 09/14/20 05:26 Last Admin: 08/15/20 17:33 Dose: 2 mg Documented by: [id number] Admin: 08/15/20 15:11 Dose: 2 mg Documented by: [id number] Miscellaneous (Check Clonidine Patch Placement) 1 ea N/A QS YASMANI Stop: 09/14/20 17:22 Last Admin: 08/16/20 00:25 Dose: 1 ea Documented by: [id number] Admin: 08/15/20 18:03 Dose: 1 ea Documented by: [id number] Nicotine (Nicotine 14 Mg/24 Hr Patch) 14 mg TD QAM YASMANI Stop: 09/14/20 13:29 Last Admin: 08/15/20 14:01 Dose: 14 mg Documented by: [id number] Pantoprazole Sodium (Pantoprazole 40 Mg Tab) 40 mg PO DAILY YASMANI Stop: 09/14/20 17:22 Last Admin: 08/15/20 18:36 Dose: 40 mg Documented by: [id number] Thiamine HCl (Thiamine Hcl 100 Mg Tab) 100 mg PO QAM YASMANI Stop: 09/14/20 08:59 Last Admin: 08/15/20 10:54 Dose: 100 mg Documented by: [id number] Trazodone HCl (Trazodone Hcl 50 Mg Tab) 50 mg PO HS YASMANI Stop: 09/14/20 20:59 Last Admin: 08/15/20 20:22 Dose: 50 mg Documented by: [id number] Discontinued Medications Adenosine (Adenosine Iv Soln 3 Mg/Ml 2 Ml Vial) 6 mg IV NOW STA Stop: 08/15/20 03:36 Last Admin: 08/15/20 04:22 Dose: 6 mg Documented by: [id number] Albuterol (Albut/Ipratrop 3mg/0.5mg Neb 3 Ml Vial) Confirm Administered Dose 12 ml .ROUTE .STK-MED ONE Stop: 08/15/20 01:22 Last Admin: 08/15/20 03:24 Dose: Not Given Documented by: [id number] Albuterol (Albut/Ipratrop 3mg/0.5mg Neb 3 Ml Vial) 12 ml NEB ONE ONE Stop: 08/15/20 01:20 Last Admin: 08/15/20 01:27 Dose: 12 ml Documented by: [id number] Albuterol (Albut/Ipratrop 3mg/0.5mg Neb 3 Ml Vial) 12 ml NEB ONE ONE Stop: 08/15/20 13:14 Last Admin: 08/15/20 13:28 Dose: 12 ml Documented by: [id number] Albuterol (Albut/Ipratrop 3mg/0.5mg Neb 3 Ml Vial) Confirm Administered Dose 12 ml .ROUTE .STK-MED ONE Stop: 08/15/20 13:25 Last Admin: 08/15/20 13:54 Dose: Not Given Documented by: [id number] Magnesium Sulfate/Dextrose (Magnesium Sulfate / D5w) 1 gm in 100 mls @ 100 mls/hr IV NOW STA Stop: 08/15/20 02:22 Last Infusion: 08/15/20 03:30 Dose: 0 mls/hr Documented by: [id number] Admin: 08/15/20 02:24 Dose: 100 mls/hr Documented by: [id number] Lorazepam (Ativan) 0.5 mg in 1 mls @ 1 mls/min IV NOW STA Stop: 08/15/20 03:16 Last Admin: 08/15/20 03:23 Dose: 1 mls/min Documented by: [id number] Lactated Ringer's (Lr) 1,000 mls @ 125 mls/hr IV .Q8H YASMANI Stop: 09/14/20 03:14 Last Infusion: 08/15/20 17:27 Dose: 0 mls/hr Documented by: [id number] Admin: 08/15/20 11:19 Dose: 125 mls/hr Documented by: [id number] Infusion: 08/15/20 11:19 Dose: 0 mls/hr Documented by: [id number] Admin: 08/15/20 03:23 Dose: 125 mls/hr Documented by: [id number] Multivitamins 10 ml/ Thiamine HCl 100 mg/ Folic Acid 1 mg/Sodium Chloride 1,011.2 mls @ 1,011.2 mls/hr IV .Q1H ONE Stop: 08/15/20 18:59 Last Infusion: 08/15/20 20:13 Dose: 0 mls/hr Documented by: [id number] Admin: 08/15/20 17:51 Dose: 1,011.2 mls/hr Documented by: [id number] Lorazepam (Lorazepam 1 Mg Tab) 1 mg PO NOW STA Stop: 08/15/20 13:15 Last Admin: 08/15/20 14:02 Dose: 1 mg Documented by: [id number] Methylprednisolone (Methylprednisolone 125 Mg/2 Ml Vial) Confirm Administered Dose 125 mg .ROUTE .STK-MED ONE Stop: 08/15/20 14:00 Last Admin: 08/15/20 14:01 Dose: 40 mg Documented by: [id number] Critical Care Time Critical Care Time: Yes Total Critical Care Time: 49 Critical care of 49 min performed to assess and manage high likelihood of life- threatening respiratory failure, involving labs and imaging performed with assessment to evaluate respiratory failure diagnosis with frequent reassessment. This time includes bedside time, treatment discussions with patient/family/consultants, documentation time and excludes procedure time. Medical Decision Making Differential Diagnosis Differential diagnoses includes but is not limited to pneumonia, bronchitis, COPD/Asthma exacerbation, pneumothorax, pulmonary embolism, congestive heart failure, acute coronary syndrome Medical Records Attestation: I reviewed the patient's medical records. Home Medications Current Medication List: was personally reviewed by me Laboratory Data Attestation: I reviewed the patient's lab results. Result diagrams: 08/15/20 01:39 08/15/20 01:39 Lab Results 08/15/20 08/15/20 08/15/20 Range/Units 01:39 01:39 01:39 WBC 5.87 (4.8-10.8) K/uL RBC 3.88 L (4.2-5.4) M/uL Hgb 13.3 (12.0-16.0) g/dL Hct 40.3 (37-47) % MCV 103.9 H (80-100) fL MCH 34.3 H (25-34) pg MCHC 33.0 (32-36) g/dL RDW Std Deviation 50.7 H (36.4-46.3) fL RDW Coeff of Don 13.6 (11.5-14.5) % Plt Count 154 (130-400) K/uL MPV 9.5 (7.4-10.4) fL Immature Gran % (Auto) 0.5 % Neut % (Auto) 51.0 % Lymph % (Auto) 30.3 % [place] % (Auto) 17.4 % Eos % (Auto) 0.5 % Baso % (Auto) 0.3 % Neut # (Auto) 2.99 (1.4-6.5) K/uL Lymph # (Auto) 1.78 (1.2-3.4) K/uL [place] # (Auto) 1.02 H (0.11-0.59) K/uL Eos # (Auto) 0.03 (0-0.5) K/uL Baso # (Auto) 0.02 (0-0.2) K/uL Immature Gran # (Auto) 0.03 H (0.00-0.02) K/uL PT 10.1 (9.0-12.0) Seconds INR 1.0 (0.9-1.1) Sodium 135 L (136-145) mmol/L Potassium 4.0 (3.5-5.1) mmol/L Chloride 97 L (98-107) mmol/L Carbon Dioxide 30 (21-32) mmol/L Anion Gap 8.0 (3-11) BUN 6 L (7-18) mg/dl Creatinine 0.53 L (0.6-1.2) mg/dl Est Cr Clr Drug Dosing Not Reportable Est GFR ( Amer) 118.8 Est GFR (Non-Af Amer) 102.5 BUN/Creatinine Ratio 12.1 (10-20) Glucose 125 H (70-99) mg/dl Lactate (0.4-2.0) mmol/L Calcium 9.2 (8.5-10.1) mg/dl Magnesium 1.9 (1.8-2.4) mg/dl Total Bilirubin 0.7 (0.2-1) mg/dl AST 215 H (15-37) U/L ALT 125 H (12-78) U/L Alkaline Phosphatase 288 H (45-117) U/L Troponin I < 0.015 (0-0.045) ng/ml NT-Pro-B Natriuret Pep 205 (0-900) pg/ml Total Protein 7.4 (6.4-8.2) gm/dl Albumin 3.2 L (3.4-5.0) gm/dl Globulin 4.2 H (2.5-4.0) gm/dl Albumin/Globulin Ratio 0.8 L (0.9-2) Lipase 193 (73-393) U/L TSH 3.790 (0.300-4.500) uIu/ml Ethyl Alcohol mg/dL (0-3) mg/dl COVID-19 Eval Order SARS-CoV-2 (PCR) (Negative) Influenza Type A (PCR) (Neg) Influenza Type B (PCR) (Neg) RSV (RT-PCR) (Neg) 08/15/20 08/15/20 08/15/20 Range/Units 01:39 01:39 03:33 WBC (4.8-10.8) K/uL RBC (4.2-5.4) M/uL Hgb (12.0-16.0) g/dL Hct (37-47) % MCV (80-100) fL MCH (25-34) pg MCHC (32-36) g/dL RDW Std Deviation (36.4-46.3) fL RDW Coeff of Don (11.5-14.5) % Plt Count (130-400) K/uL MPV (7.4-10.4) fL Immature Gran % (Auto) % Neut % (Auto) % Lymph % (Auto) % [place] % (Auto) % Eos % (Auto) % Baso % (Auto) % Neut # (Auto) (1.4-6.5) K/uL Lymph # (Auto) (1.2-3.4) K/uL [place] # (Auto) (0.11-0.59) K/uL Eos # (Auto) (0-0.5) K/uL Baso # (Auto) (0-0.2) K/uL Immature Gran # (Auto) (0.00-0.02) K/uL PT (9.0-12.0) Seconds INR (0.9-1.1) Sodium (136-145) mmol/L Potassium (3.5-5.1) mmol/L Chloride (98-107) mmol/L Carbon Dioxide (21-32) mmol/L Anion Gap (3-11) BUN (7-18) mg/dl Creatinine (0.6-1.2) mg/dl Est Cr Clr Drug Dosing Est GFR ( Amer) Est GFR (Non-Af Amer) BUN/Creatinine Ratio (10-20) Glucose (70-99) mg/dl Lactate 1.7 (0.4-2.0) mmol/L Calcium (8.5-10.1) mg/dl Magnesium (1.8-2.4) mg/dl Total Bilirubin (0.2-1) mg/dl AST (15-37) U/L ALT (12-78) U/L Alkaline Phosphatase (45-117) U/L Troponin I (0-0.045) ng/ml NT-Pro-B Natriuret Pep (0-900) pg/ml Total Protein (6.4-8.2) gm/dl Albumin (3.4-5.0) gm/dl Globulin (2.5-4.0) gm/dl Albumin/Globulin Ratio (0.9-2) Lipase (73-393) U/L TSH (0.300-4.500) uIu/ml Ethyl Alcohol mg/dL < 3.0 (0-3) mg/dl COVID-19 Eval Order CovFluRsv at [facility] SARS-CoV-2 (PCR) (Negative) Influenza Type A (PCR) (Neg) Influenza Type B (PCR) (Neg) RSV (RT-PCR) (Neg) 08/15/20 Range/Units 03:33 WBC (4.8-10.8) K/uL RBC (4.2-5.4) M/uL Hgb (12.0-16.0) g/dL Hct (37-47) % MCV (80-100) fL MCH (25-34) pg MCHC (32-36) g/dL RDW Std Deviation (36.4-46.3) fL RDW Coeff of Don (11.5-14.5) % Plt Count (130-400) K/uL MPV (7.4-10.4) fL Immature Gran % (Auto) % Neut % (Auto) % Lymph % (Auto) % [place] % (Auto) % Eos % (Auto) % Baso % (Auto) % Neut # (Auto) (1.4-6.5) K/uL Lymph # (Auto) (1.2-3.4) K/uL [place] # (Auto) (0.11-0.59) K/uL Eos # (Auto) (0-0.5) K/uL Baso # (Auto) (0-0.2) K/uL Immature Gran # (Auto) (0.00-0.02) K/uL PT (9.0-12.0) Seconds INR (0.9-1.1) Sodium (136-145) mmol/L Potassium (3.5-5.1) mmol/L Chloride (98-107) mmol/L Carbon Dioxide (21-32) mmol/L Anion Gap (3-11) BUN (7-18) mg/dl Creatinine (0.6-1.2) mg/dl Est Cr Clr Drug Dosing Est GFR ( Amer) Est GFR (Non-Af Amer) BUN/Creatinine Ratio (10-20) Glucose (70-99) mg/dl Lactate (0.4-2.0) mmol/L Calcium (8.5-10.1) mg/dl Magnesium (1.8-2.4) mg/dl Total Bilirubin (0.2-1) mg/dl AST (15-37) U/L ALT (12-78) U/L Alkaline Phosphatase (45-117) U/L Troponin I (0-0.045) ng/ml NT-Pro-B Natriuret Pep (0-900) pg/ml Total Protein (6.4-8.2) gm/dl Albumin (3.4-5.0) gm/dl Globulin (2.5-4.0) gm/dl Albumin/Globulin Ratio (0.9-2) Lipase (73-393) U/L TSH (0.300-4.500) uIu/ml Ethyl Alcohol mg/dL (0-3) mg/dl COVID-19 Eval Order SARS-CoV-2 (PCR) NEGATIVE (Negative) Influenza Type A (PCR) Negative (Neg) Influenza Type B (PCR) Negative (Neg) RSV (RT-PCR) Negative (Neg) Imaging Data My Impression: X-ray: I interpreted the following studies. Chest: A single view study of the chest was reviewed and was negative for cardiomegaly, focal infiltr ate, effusion, pulmonary edema, or wide mediastinum. Hyperinflated. Radiologist's Impression: Chest X-Ray 08/15/20 01:20 XR chest 1V portable CLINICAL HISTORY: Shortness of breath COMPARISON STUDY: 12/09/2019 FINDINGS: The patient is hyperinflated. There is no focal pulmonary consolidation. There is no failure. There is scattered granulomatous calcifications. There are no significant pleural effusions. There is a retrocardiac opacity consistent with a hiatal hernia.[ IMPRESSION: 1. Hyperinflation 2. Evidence of prior granulomatous disease 3. Small hiatal hernia 4. No acute findings ACT 112: Negative or not required by law. Electronically signed by: Dariel Rangel M.D. 08/15/2020 6:58 AM ECG Data Attestation: I personally reviewed and interpreted this ECG as follows: Indication: + SOB/dyspnea Rate (beats per minute): 119 Rhythm: + sinus tachycardia ECG Intervals/blocks: + Normal QRS and + Prolonged QT ECG [place]: + Normal ECG ST segments: + Nonspecific ST abnormalities Additional Comments: baseline artifact MDM Narrative This is a 60-year-old female with significant pulmonary history who presents via EMS with markedly increased work of breathing and respiratory distress. Patient did improve following EMS interventions including steroids and 2 nebulizer treatments. Patient was oxygenating well on arrival on nasal cannula, however still had significant work of breathing. I discussed options for interventions at bedside with the patient and then with RT, patient was placed on BiPAP and started on an hour-long nebulizer treatment. Patient with significant underlying COPD, on chronic oxygen, and has previously been intubated during prior admissions with similar symptoms. Patient was afebrile, other labs are reassuring, no leukocytosis noted. IV mag was given additionally. Patient was rechecked frequently and multiple times by both myself and RT. Patient continued to slowly improve with additional BiPAP and nebulizer therapy. Patient otherwise remained hemodynamically stable. Around the time of my discussion with the hospitalist regarding need for additional inpatient management, patient appeared to change to SVT in the 150s. Patient unable to perform vagal maneuvers due to her other symptoms, so after discussion at bedside patient was given 6 mg of adenosine and converted to a sinus tachycardia at 110. Patient tolerated this chemical intervention well and without other complications. Patient denies any prior history of dysrhythmia. Patient was given additional Ativan due to concern for possible symptomatic alcohol withdrawal given her reported frequent use of alcohol and prior history of withdrawal symptoms. No evidence of pneumonia or effusion on chest x-ray. Patient's LFTs were abnormal although I suspect this is secondary to her alcohol use. No evidence for other cardiac etiology of her respiratory symptoms. Patient continued to improve while being monitored in the emergency room. An order was placed for continuous cardiac monitoring. The monitor shows a rate of 103_ with sinus tachycardia_ rhythm. Impression & Plan Acute dyspnea, COPD (chronic obstructive pulmonary disease), Respiratory failure, SVT (supraventricular tachycardia), Chronic respiratory failure with hypoxia, on home oxygen therapy Discharge Plan Visit Data Chief Complaint: Shortness of Breath/Dyspnea Stated Complaint: SHORT OF BREATH ED Provider: Krissy Archibald Discharge Problem: Acute dyspnea, COPD (chronic obstructive pulmonary disease), Respiratory failure, SVT (supraventricular tachycardia), Chronic respiratory failure with hypoxia, on home oxygen therapy Patient Disposition: Admitted As Inpatient Discharge Instructions Interventions: ED Discharge Assessment Last Done: 08/15/20 16:49 Discharge Problem: COPD (chronic obstructive pulmonary disease) Qualifiers: COPD type: unspecified COPD Qualified Code(s): J44.9 - Chronic obstructive pulmonary disease, unspecified Respiratory failure Qualifiers: Chronicity: acute on chronic Respiratory failure complication: hypoxia Qualified Code(s): J96.21 - Acute and chronic respiratory failure with hypoxia
[2020-08-15 01:56] LABS: Basophils # (auto) 0.02 K/uL (0-0.2); Basophils % (auto) 0.3 %; Eosinophils # (auto) 0.03 K/uL (0-0.5); Eosinophils % (auto) 0.5 %; Hematocrit (blood only) 40.3 % (37-47); Hemoglobin 13.3 g/dL (12.0-16.0); Immature Granulocytes # (auto) 0.03 K/uL (0.00-0.02); Immature Granulocytes % (auto) 0.5 %; Lymphocytes # (auto) 1.78 K/uL (1.2-3.4); Lymphocytes % (auto) 30.3 %; Mean Corpuscular Hemoglobin 34.3 pg (25-34); Mean Corpuscular Volume 103.9 fL (80-100); Mean Platelet Volume 9.5 fL (7.4-10.4); Monocytes # (auto) 1.02 K/uL (0.11-0.59); Monocytes % (auto) 17.4 %; Neutrophils # (auto) 2.99 K/uL (1.4-6.5); Platelet Count 154 K/uL (130-400); RDW Coefficient of Variation 13.6 % (11.5-14.5); RDW Standard Deviation 50.7 fL (36.4-46.3); Red Blood Count 3.88 M/uL (4.2-5.4); White Blood Count 5.87 K/uL (4.8-10.8)
[2020-08-15 02:08] LABS: Prothrombin Time 10.1 Seconds (9.0-12.0)
[2020-08-15 02:15] LABS: Albumin Level 3.2 gm/dl (3.4-5.0); Aspartate Aminotransferase 215 U/L (15-37); BUN Creatinine Ratio 12.1 (10-20); Blood Urea Nitrogen 6 mg/dl (7-18); Calcium 9.2 mg/dl (8.5-10.1); Carbon Dioxide 30 mmol/L (21-32); Chloride 97 mmol/L (98-107); Est GFR (African American) 118.8; Est GFR (Non-African American) 102.5; Glucose 125 mg/dl (70-99); Lipase 193 U/L (73-393); Magnesium 1.9 mg/dl (1.8-2.4); Sodium 135 mmol/L (136-145)
[2020-08-15 02:26] LABS: Alanine Aminotransferase 125 U/L (12-78); Albumin Globulin Ratio 0.8 (0.9-2); Alkaline Phosphatase 288 U/L (45-117); Bilirubin,Total 0.7 mg/dl (0.2-1); Globulin 4.2 gm/dl (2.5-4.0); NT Pro B Type Natriuretic Pept 205 pg/ml (0-900); Total Protein 7.4 gm/dl (6.4-8.2); Troponin I < 0.015 ng/ml (0-0.045)
[2020-08-15] MEDS ORDERED: LORazepam 0.5 MG/1 ML VIAL IV STA (03:15)
[2020-08-15] MEDS: LACTATED RINGER'S 1,000 ML IV SCH ×2 (03:23→11:19)
[2020-08-15] MEDS ORDERED: ADENOSINE IV SOLN 3 MG/ML 2 ML VIAL IV STA (03:35)
[2020-08-15 04:40] LABS: Influenza A virus by PCR Negative (Neg); Influenza B virus by PCR Negative (Neg); RSV by PCR Negative (Neg); SARS CoV2 RNA(COVID-19) InHosp NEGATIVE (Negative)
--- NOTE | 2020-08-15 06:00 | History & Physical Report ---
Date of Service August 15, 2020 Assessment & Plan (1) Acute on chronic respiratory failure with hypoxia and hypercapnia: Acute on chronic respiratory failure with hypoxia and hypercapnia/COPD exacerbation/tobacco use disorder- Methylprednisolone 40 mg IV every 8 hours Duonebs every 4 hours while awake and every 2 hours when necessary. Continue BiPAP, titrate downward as symptoms improve, with goal pulse ox of 92% Azithromycin 500 mg IV daily Guaifenesin extended release 600 mg p.o. twice daily Present on Admission?: Yes (2) COPD (chronic obstructive pulmonary disease): Hold usual inhalers for now Present on Admission?: Yes (3) Alcoholic hepatitis: Follow serial transaminases Present laboratories: AST 215, ALT 125 are at or near her maximum Present on Admission?: Yes (4) Current smoker: Tobacco cessation counseling Present on Admission?: Yes (5) ETOH abuse: AWSS protocol with IV Ativan She reports that her last intake with 2 L of liquor earlier in the day Alcohol cessation counseling Present on Admission?: Yes (6) Depression: Continue bupropion Present on Admission?: Yes History of Present Illness Chief Complaint: The patient presents to the emergency department with productive cough, shortness of breath, dyspnea on exertion, chronic home use of 3 L oxygen per minute, and continued tobacco use and alcohol abuse Primary Care Provider: Bentley Childs Jr, DO The patient is a 60-year-old female with a past medical history including COPD, tobacco use disorder, iron deficiency anemia, chronic low back pain, alcohol abuse disorder, constipation, pneumonia, severe sepsis, hypoxia, parapneumonic effusion, ADHD, sleep disturbance, alcohol dependence, halo hernia, chronic respiratory failure, abnormal LFTs, elevated troponin, hypersomnia, depression, asthma, jaundice and alcoholic hepatitis. Patient called EMS due to significantly worsening shortness of breath. She continues with tobacco use, and reports to EMS that she drank 2 L of liquor earlier in the day today. Allergies Allergy/AdvReac Type Severity Reaction Status Date / Time naltrexone [From Vivitrol] AdvReac Intermediate Hair Verified 08/15/20 02:54 loss/ingrown hairs over body RACIEL Inhibitors AdvReac Mild COUGH Verified 08/15/20 02:54 Home Medications Medication Instructions Recorded Confirmed Type ergocalciferol (vitamin D2) 50,000 unit PO MONTHLY 11/03/19 08/15/20 History clonidine 1 patch TOPICAL WK 11/22/19 08/15/20 History acetylcysteine 200 mg/mL (20 %) 3 ml INH Q6H PRN #200 ml 12/09/19 08/15/20 Rx solution bupropion HCl 150 mg tablet,12 hr 150 mg PO BID 12/09/19 08/15/20 History sustained-release ipratropium 0.5 mg-albuterol 3 mg 3 ml INH Q8H PRN #360 ml 12/09/19 08/15/20 Rx (2.5 mg base)/3 mL nebulization soln levocetirizine 5 mg tablet 5 mg PO DAILY PRN #90 tab 12/09/19 08/15/20 Rx nebulizers #1 ea 12/09/19 03/21/20 Rx divalproex [Depakote] 500 mg PO HS 02/29/20 08/15/20 History fluticasone propionate [Allergy 1 spray INTNAS QAM PRN 02/29/20 08/15/20 History Relief (fluticasone)] pantoprazole 40 mg PO DAILY #30 tab 03/07/20 08/15/20 Rx albuterol sulfate 90 mcg/actuation 2 puff INH Q6H PRN #18 gm 03/21/20 08/15/20 Rx aerosol inhaler umeclidinium 62.5 mcg-vilanterol 1 inh INH QAM #60 ea 03/21/20 08/15/20 Rx 25 mcg/actuation powdr for inhalation prednisone 5 mg PO DAILY 08/15/20 08/15/20 History trazodone 50 - 100 mg PO HS PRN 08/15/20 08/15/20 History Past Med/Surg History Medical History Alcoholic hepatitis Anemia Anxiety reason for depakote Ascites Asthma Atelectasis of left lung COPD (chronic obstructive pulmonary disease) inhaler daily/prn Depression Emphysema of lung Hiatal hernia Jaundice Leukocytosis (04/21/14) On home oxygen therapy 1-2L N/C prn Sepsis due to Streptococcus pneumoniae hx of Sleep apnea cpap with 2 L oxygen at hs Tachycardia (08/17/13) Surgical History History of bronchoscopy History of colonoscopy History of ovarian cystectomy History of tooth extraction S/P removal of ovarian cyst Family History Father Myocardial infarction Hypertension Other No family history of adverse response to anesthesia Social History Smoking Status: Current every day smoker Tobacco Type: Cigarettes Cigarettes Per Day: 20; Second Hand Exposure: Yes; Hx Alcohol Use: Yes Alcohol type: wine Alcohol Intake Frequency Comment: 500 ml a day Hx Substance Use: No Preferred Language: Bahraini Communication Ability: Effective Logistic Manager Required: No Beliefs That Will Affect Care: None marital status: Current Living Situation: Spouse How many Children do You have: 3 Other Information That Helps Us Care for You: No Feels Safe at Home: Yes Safety Concerns: Feels Safe At This Time Assistive Devices: Oxygen - Continuous and Walker Review of Systems Review of Systems: The patient denies chest pain, palpitations, lower extremity swelling, sore throat, fevers, chills, sweats, nausea, vomiting, diarrhea , constipation, abdominal pain, pelvic pain, blood in urine or stool, dysuria, urinary frequency or urgency, lightheadedness, dizziness, headache, loss of consciousness, rash, abnormal bruising or bleeding, imbalance, focal or generalized weakness, numbness or tingling in arms or legs, generalized arthralgias or myalgias, back or neck pain, or night sweats. The review of systems is otherwise negative other than for that already noted above, and at least 10 systems have been reviewed. Physical Exam Physical Exam: The patient is awake, alert and oriented 3, well developed and well nourished, has BiPAP mask in place, lying in bed and in no further acute distress. HEENT--PERRL, EOMI, mucous membranes and oropharynx dry. Neck--supple. No JVD. No bruits. Thyroid normal, trachea midline, no adenopathy. Heart--normal S1 and S2. No murmurs, rubs or gallops. Lungs--coarse breath sounds bilaterally. No further respiratory distress, no accessory muscle use. Abdomen--normal bowel sounds and soft. Nontender. Nondistended. Extremities--no cyanosis or clubbing. No edema. Dermatologic--normal skin turgor, normal color, no abnormal lymph nodes, no rash. Neurologic--cranial nerves II through XII grossly intact. Rheumatologic--normal range of motion. Psychiatric--normal affect. Results & Data Results & Data ([facility]) Vital Signs (Past 12 Hours) Vital Signs Temp Pulse Pulse Resp BP Pulse Ox 08/15/20 05:30 103 H 21 107/75 96 08/15/20 05:15 102 H 30 H 126/78 97 08/15/20 05:08 112 H 24 93 08/15/20 05:00 104 H 28 H 121/73 94 08/15/20 04:46 112 H 28 H 125/76 93 08/15/20 04:30 108 H 25 H 109/75 91 08/15/20 04:15 108 H 27 H 123/74 93 08/15/20 04:00 109 H 28 H 142/78 H 92 08/15/20 03:45 113 H 22 139/92 93 08/15/20 03:34 144 H 18 119/81 94 08/15/20 03:30 142 H 21 93 08/15/20 03:16 145 H 24 95 08/15/20 03:14 143 H 23 130/74 95 08/15/20 03:00 153 H 30 H 135/83 94 08/15/20 02:30 107 H 20 146/105 H 100 08/15/20 02:14 113 H 28 H 151/107 H 99 08/15/20 01:45 108 H 22 100 08/15/20 01:30 113 H 32 H 144/97 H 100 08/15/20 01:28 112 H 108 H 34 H 99 08/15/20 01:26 116 H 25 H 145/92 H 99 08/15/20 01:14 119 H 40 H 156/101 H 97 08/15/20 01:12 119 H 31 H 174/124 H 99 08/15/20 01:10 99.3 F 114 H 34 H 156/107 H 96 Laboratory Results Laboratory Results WBC 5.87 K/uL (4.8-10.8) 08/15/20 01:39 RBC 3.88 M/uL (4.2-5.4) L 08/15/20 01:39 Hgb 13.3 g/dL (12.0-16.0) 08/15/20 01:39 Hct 40.3 % (37-47) 08/15/20 01:39 MCV 103.9 fL (80-100) H 08/15/20 01:39 MCH 34.3 pg (25-34) H 08/15/20 01:39 MCHC 33.0 g/dL (32-36) 08/15/20 01:39 RDW Std Deviation 50.7 fL (36.4-46.3) H 08/15/20 01:39 RDW Coeff of Don 13.6 % (11.5-14.5) 08/15/20 01:39 Plt Count 154 K/uL (130-400) 08/15/20 01:39 MPV 9.5 fL (7.4-10.4) 08/15/20 01:39 Immature Gran % (Auto) 0.5 % 08/15/20 01:39 Neut % (Auto) 51.0 % 08/15/20 01:39 Lymph % (Auto) 30.3 % 08/15/20 01:39 Tucker % (Auto) 17.4 % 08/15/20 01:39 Eos % (Auto) 0.5 % 08/15/20 01:39 Baso % (Auto) 0.3 % 08/15/20 01:39 Neut # (Auto) 2.99 K/uL (1.4-6.5) 08/15/20 01:39 Lymph # (Auto) 1.78 K/uL (1.2-3.4) 08/15/20 01:39 Tucker # (Auto) 1.02 K/uL (0.11-0.59) H 08/15/20 01:39 Eos # (Auto) 0.03 K/uL (0-0.5) 08/15/20 01:39 Baso # (Auto) 0.02 K/uL (0-0.2) 08/15/20 01:39 Immature Gran # (Auto) 0.03 K/uL (0.00-0.02) H 08/15/20 01:39 PT 10.1 Seconds (9.0-12.0) 08/15/20 01:39 INR 1.0 (0.9-1.1) 08/15/20 01:39 Sodium 135 mmol/L (136-145) L 08/15/20 01:39 Potassium 4.0 mmol/L (3.5-5.1) 08/15/20 01:39 Chloride 97 mmol/L (98-107) L 08/15/20 01:39 Carbon Dioxide 30 mmol/L (21-32) 08/15/20 01:39 Anion Gap 8.0 (3-11) 08/15/20 01:39 BUN 6 mg/dl (7-18) L 08/15/20 01:39 Creatinine 0.53 mg/dl (0.6-1.2) L 08/15/20 01:39 Est Cr Clr Drug Dosing Not Reportable 08/15/20 01:39 Est GFR ( Amer) 118.8 08/15/20 01:39 Est GFR (Non-Af Amer) 102.5 08/15/20 01:39 BUN/Creatinine Ratio 12.1 (10-20) 08/15/20 01:39 Glucose 125 mg/dl (70-99) H 08/15/20 01:39 Lactate 1.7 mmol/L (0.4-2.0) 08/15/20 01:39 Calcium 9.2 mg/dl (8.5-10.1) 08/15/20 01:39 Magnesium 1.9 mg/dl (1.8-2.4) 08/15/20 01:39 Total Bilirubin 0.7 mg/dl (0.2-1) 08/15/20 01:39 AST 215 U/L (15-37) H 08/15/20 01:39 ALT 125 U/L (12-78) H 08/15/20 01:39 Alkaline Phosphatase 288 U/L (45-117) H 08/15/20 01:39 Troponin I < 0.015 ng/ml (0-0.045) 08/15/20 01:39 NT-Pro-B Natriuret Pep 205 pg/ml (0-900) 08/15/20 01:39 Total Protein 7.4 gm/dl (6.4-8.2) 08/15/20 01:39 Albumin 3.2 gm/dl (3.4-5.0) L 08/15/20 01:39 Globulin 4.2 gm/dl (2.5-4.0) H 08/15/20 01:39 Albumin/Globulin Ratio 0.8 (0.9-2) L 08/15/20 01:39 Lipase 193 U/L (73-393) 08/15/20 01:39 TSH 3.790 uIu/ml (0.300-4.500) 08/15/20 01:39 Ethyl Alcohol mg/dL < 3.0 mg/dl (0-3) 08/15/20 01:39 COVID-19 Eval Order CovFluRsv at [facility] 08/15/20 03:33 SARS-CoV-2 (PCR) NEGATIVE (Negative) 08/15/20 03:33 Influenza Type A (PCR) Negative (Neg) 08/15/20 03:33 Influenza Type B (PCR) Negative (Neg) 08/15/20 03:33 RSV (RT-PCR) Negative (Neg) 08/15/20 03:33 Code Status & VTE Plan Code Status Full code VTE Prophylaxis Plan VTE Prophylaxis will be ordered: Yes PG Care Time/CCT Total # of Minutes Spent Total Time Spent with Patient: Total time spent is greater than 50% in coordination of care (as documented) at patient's floor/unit and/or counseling patient: Coding Level of Care Code 46195 Initial Inpt Care Lvl 3 Diagnoses Acute on chronic respiratory failure with hypoxia and hypercapnia J96.21; J96.22 COPD (chronic obstructive pulmonary disease) J44.9 Alcoholic hepatitis K70.10 Current smoker F17.200 ETOH abuse F10.10 Depression F32.89 Depression Type: other depression (1) Depression Depression Type: other depression Qualified Code(s): F32.89 - Other specified depressive episodes
--- NOTE | 2020-08-15 07:00 | XRay Report ---
XR chest 1V portable CLINICAL HISTORY: Shortness of breath COMPARISON STUDY: 12/09/2019 FINDINGS: The patient is hyperinflated. There is no focal pulmonary consolidation. There is no failur e. There is scattered granulomatous calcifications. There are no significant pleural effusions. There is a retrocardiac opacity consistent with a hiatal hernia.[ IMPRESSION: 1. Hyperinflation 2. Evidence of prior granulomatous disease 3. Small hiatal hernia 4. No acute findings ACT 112: Negative or not required by law. Electronically signed by: Dariel Rangel M.D. 08/15/2020 6:58 AM
[2020-08-15] MEDS: FOLIC ACID 1 MG TAB PO SCH (10:53)
[2020-08-15] MEDS: LORazepam 0.5 MG/1 ML VIAL IV PRN ×3 (10:54→20:18)
[2020-08-15] MEDS: THIAMINE HCL 100 MG TAB PO SCH (10:54)
[2020-08-15] MEDS ORDERED: LORazepam 1 MG TAB PO STA (13:14)
[2020-08-15] MEDS ORDERED: ONDANSETRON INJ 2 MG/ML 2 ML VIAL IV PRN (13:21)
--- NOTE | 2020-08-15 13:48 | History & Physical Bridge Note ---
Date of Service August 15, 2020 History & Physical Bridge Note I have examined the patient, reviewed the History & Physical and in the interval since the performance of the History & Physical I have noted the following changes of clinical significance: noted below Patient admitted to feeling lightheaded prior to coming to the ER. Admits to using nebulizers at home over the past week but not prior to that. Using due to increased shortness of breath. Pulse ox at home with O2 sats 98-99% during entire episode but did not heart rates up to 180s and increased with any movement. She is on 3L via NC chronically and required BiPAP this morning and is currently back to her usual 3L with 96% O2 saturations. She got a nebulizer treatment this morning and she notes this did have improvement in her breathing but she hasn't been up. She also has had poor PO intake over the past couple months. She attributes this to being told she needed to have teeth pulled and she has a plate that she has taken back >10 times for refitting and utilizes the Fixodent but has issues after first two bites, which has caused her to relapse on both drinking and smoking cigarettes. She notes over the past several weeks smoking between 7 cigarettes to 1 pack per day and will need a nicotine patch. She has associated increase in anxiety/depression due to this issue and would like easy to chew diet as she is requesting to eat at this time. She also endorses relapse in drinking and has been going through a case of wine approximately 2.5 days. Will order dose of Ativan now and nebulizer as she is still in ER and medications have not yet crossed over. Had episode of SVT this morning and converted back to SR/tachycardia after dose of adenosine. Assessment/Plan 1) Acute on chronic respiratory failure with hypoxia and hypercapnia: * Acute on chronic respiratory failure with hypoxia and hypercapnia/COPD exacerbation/tobacco use disorder- * Methylprednisolone 40 mg IV every 8 hours -- changed to now given patient still in ER * BiPAP this morning and titrated back to her usual 3L via NC with SpO2 96% * Supplemental O2 as needed to keep sats >92% * Duoneb x 1 hour long now and then Q4H WA * LR @ 80cc/hr due to lack of PO intake secondary to eating difficulties --> ordered minced/moist diet * Azithromycin -- will order dose now and continue daily * Guaifenesin 600mg PO BID * Monitor on telemetry * AWSS -- ativan prn. Will also consult psych for increased anxiety/depression with dental plate and difficulty eating on top of usual stressors during COVID * Nicoderm patch ordered -- will need continued smoking cessation (2) COPD (chronic obstructive pulmonary disease): * Hold usual inhalers for now -- admits she had only been using her nebs over the past week for increased SOB. BNP without elevation * Steroids and Duonebs as above * Will need f/u with pulm at discharge -- recently seen by Dr. Noland (3) Alcoholic hepatitis: * Upper limit of her normal -- she had quite drinking but recently relapsed and has been drinking a case of wine every 2-3 days * LFTs in AM * AWSS, Ativan Prn * Will also add B12/folate to AM labs given MCV >100 on CBC. Placed (4) Current smoker: * Quit but recently started again in past couple of months * Nicoderm patch ordered * Educations on smoking cessation to be continued (5) ETOH abuse: * AWSS protocol with IV Ativan * She reports that her last intake with 2 L of liquor earlier in the day * Alcohol cessation counseling (6) Depression: * Continue bupropion * Also with increased anxiety as well -- psych consulted * Hx etoh with increased anxiety/depression related to dentures/eating/poor fit -- will need f/u at discharge
[2020-08-15] MEDS ORDERED: methylPREDNISolone 125 MG/2 ML VIAL ONE (13:59)
[2020-08-15] MEDS: NICOTINE 14 MG/24 HR PATCH TD SCH (14:01)
[2020-08-15] MEDS: methylPREDNISolone 40 MG in SYRINGE 0 ML IV SCH ×2 (14:03→21:45)
[2020-08-15] MEDS: AZITHROMYCIN 500 MG in DEXTROSE 5% 250 ML IV SCH (14:15)
--- NOTE | 2020-08-15 14:21 | Electrocardiogram Report ---
Test Reason : Blood Pressure : / mmHG Vent. Rate : 113 BPM Atrial Rate : 113 BPM P-R Int : 128 ms QRS Dur : 070 ms QT Int : 344 ms P-R-T Axes : 095 091 056 degrees QTc Int : 471 ms Poor data quality, interpretation may be adversely affected Sinus tachycardia Rightward axis Borderline ECG When compared with ECG of 22-NOV-2019 19:00, No significant change was found Confirmed by Jorge Beckham ([id number]) on 08/15/2020 2:21:24 PM Referred By: REFERRED SELF Confirmed By:Jorge Beckham
--- NOTE | 2020-08-15 14:22 | Electrocardiogram Report ---
Test Reason : Blood Pressure : / mmHG Vent. Rate : 119 BPM Atrial Rate : 119 BPM P-R Int : 176 ms QRS Dur : 058 ms QT Int : 388 ms P-R-T Axes : 080 079 054 degrees QTc Int : 545 ms Poor data quality, interpretation may be adversely affected Sinus tachycardia Otherwise normal ECG When compared with ECG of 15-AUG-2020 01:19, (unconfirmed) No significant change Confirmed by Jorge Beckham ([id number]) on 08/15/2020 2:22:17 PM Referred By: REFERRED SELF Confirmed By:Jorge Beckham
--- NOTE | 2020-08-15 14:23 | Electrocardiogram Report ---
Test Reason : Blood Pressure : / mmHG Vent. Rate : 110 BPM Atrial Rate : 110 BPM P-R Int : 138 ms QRS Dur : 080 ms QT Int : 330 ms P-R-T Axes : 074 079 051 degrees QTc Int : 446 ms Sinus tachycardia Otherwise normal ECG When compared with ECG of 15-AUG-2020 03:11, (unconfirmed) No significant change was found Confirmed by Jorge Beckham ([id number]) on 08/15/2020 2:23:46 PM Referred By: REFERRED SELF Confirmed By:Jorge Beckham
--- NOTE | 2020-08-15 14:23 | Electrocardiogram Report ---
Test Reason : Blood Pressure : / mmHG Vent. Rate : 143 BPM Atrial Rate : 141 BPM P-R Int : 000 ms QRS Dur : 084 ms QT Int : 286 ms P-R-T Axes : 000 085 026 degrees QTc Int : 441 ms Supraventricular tachycardia Otherwise normal ECG When compared with ECG of 15-AUG-2020 01:24, (unconfirmed) Supraventricular tachycardia has replaced Sinus tachycardia Confirmed by Jorge Beckham ([id number]) on 08/15/2020 2:23:39 PM Referred By: REFERRED SELF Confirmed By:Jorge Beckham
[2020-08-15 15:07] LABS: Folate (Folic Acid) > 20.00 ng/ml (>5.38); Vitamin B12 960 pg/ml (193-986)
[2020-08-15] MEDS: LORazepam 1 MG TAB PO PRN ×2 (15:11→17:33)
[2020-08-15] MEDS ORDERED: MAGNESIUM HYDROXIDE SUSP 30 ML UDC PO PRN (17:23)
[2020-08-15] MEDS ORDERED: ALUMINUM/MAGNESIUM SUSP 30 ML UDC PO PRN (17:23)
[2020-08-15] MEDS: ALBUT/IPRATROP 3MG/0.5MG NEB 3 ML VIAL NEB SCH ×2 (17:35→19:28)
[2020-08-15] MEDS ORDERED: MULTI-VITAMIN INFUSION 10 ML, THIAMINE HCL 100 MG, FOLIC ACID 1 MG in SODIUM CHLORIDE 0... IV ONE (18:00)
[2020-08-15] MEDS: CHECK CLONIDINE PATCH PLACEMENT SCH (18:03)
[2020-08-15] MEDS: guaiFENesin 600 MG TABCR PO SCH ×2 (18:36→20:22)
[2020-08-15] MEDS: ENOXAPARIN INJ 40 MG/0.4 ML SYR SQ SCH (18:36)
[2020-08-15] MEDS: PANTOprazole 40 MG TAB PO SCH (18:36)
[2020-08-15] MEDS: buPROPion SR 150 MG TABCR PO SCH ×3 (18:36→23:42)
[2020-08-15] MEDS: DIVALPROEX DELAY RELEASE 500 MG TAB PO SCH (20:22)
[2020-08-15] MEDS: traZODone HCL 50 MG TAB PO SCH (20:22)
[2020-08-15 22:50] LABS: Amphetamines+Metham, Urine Neg (Neg); Barbiturates, Urine Neg (Neg); Benzodiazepine, Urine Neg (Neg); Cocaine, Urine Neg (Neg); MDMA (Ecstacy), Urine Pos (Neg); Methadone, Urine Neg (Neg); Opiate, Urine Neg (Neg); Phencyclidine, Urine Neg (Neg)
[2020-08-16] MEDS: CHECK CLONIDINE PATCH PLACEMENT SCH ×3 (00:25→15:51)
[2020-08-16] MEDS: methylPREDNISolone 40 MG in SYRINGE 0 ML IV SCH ×3 (06:15→20:17)
[2020-08-16 06:40] LABS: Hematocrit (blood only) 31.3 % (37-47); Immature Granulocytes # (auto) 0.03 K/uL (0.00-0.02); Immature Granulocytes % (auto) 0.7 %; Lymphocytes # (auto) 0.29 K/uL (1.2-3.4); Lymphocytes % (auto) 6.6 %; Mean Corpuscular Hemoglobin 34.4 pg (25-34); Mean Corpuscular Hgb Conc 31.9 g/dL (32-36); Mean Corpuscular Volume 107.6 fL (80-100); Mean Platelet Volume 9.5 fL (7.4-10.4); Monocytes # (auto) 0.56 K/uL (0.11-0.59); Monocytes % (auto) 12.8 %; Neutrophils % (auto) 79.9 %; Platelet Count 138 K/uL (130-400); RDW Coefficient of Variation 13.6 % (11.5-14.5); RDW Standard Deviation 53.3 fL (36.4-46.3); Red Blood Count 2.91 M/uL (4.2-5.4); White Blood Count 4.38 K/uL (4.8-10.8)
[2020-08-16 07:20] LABS: Albumin Level 2.6 gm/dl (3.4-5.0); Bilirubin Direct 0.2 mg/dl (0-0.2); Calcium 8.6 mg/dl (8.5-10.1); Est GFR (African American) 115.3; Est GFR (Non-African American) 99.5; Potassium 3.9 mmol/L (3.5-5.1)
[2020-08-16 07:27] LABS: Bilirubin,Total 0.4 mg/dl (0.2-1); Total Protein 6.1 gm/dl (6.4-8.2)
[2020-08-16] MEDS: NICOTINE 14 MG/24 HR PATCH TD SCH (07:41)
[2020-08-16] MEDS: buPROPion SR 150 MG TABCR PO SCH (07:41)
[2020-08-16] MEDS: FOLIC ACID 1 MG TAB PO SCH (07:42)
[2020-08-16] MEDS: PANTOprazole 40 MG TAB PO SCH ×2 (07:42→20:20)
[2020-08-16] MEDS: THIAMINE HCL 100 MG TAB PO SCH (07:42)
[2020-08-16] MEDS: guaiFENesin 600 MG TABCR PO SCH ×2 (07:42→20:19)
[2020-08-16] MEDS: AZITHROMYCIN 500 MG in DEXTROSE 5% 250 ML IV SCH (07:47)
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
[2020-08-16] MEDS: LORazepam 1 MG TAB PO PRN ×3 (08:02→20:16)
[2020-08-16] MEDS: ALBUT/IPRATROP 3MG/0.5MG NEB 3 ML VIAL NEB SCH ×4 (08:33→19:26)
[2020-08-16 08:34] LABS: Prothrombin Time 9.7 Seconds (9.0-12.0)
--- NOTE | 2020-08-16 08:48 | XCELERA ---
[id number]
[2020-08-16 09:20] LABS: Lyme Ab IgG w/WB Rflx Negative (Negative)
[2020-08-16] MEDS: MAGNESIUM SULFATE / D5W 1 GM/100 ML BAG IV ONE ×2 (09:35→09:47)
[2020-08-16] MEDS ORDERED: LORazepam 0.5 MG TAB PO PRN (09:46)
[2020-08-16 09:51] LABS: Lyme Ab IgM w/WB Rflx Positive (Negative)
--- NOTE | 2020-08-16 10:56 | Psychiatric Consultation ---
Date of Consultation August 16, 2020 Impression / Recommendations Impression Dr. Sarah Gipson was directly involved in review and discussion of the patient's case and participated in medical decision making regarding treatment recommendations. RECOMMENDATIONS: 08/16/20 - Psychiatric consultation requested by our hospitalist service to evaluate patient for worsening anxiety and alcohol abuse. Increased anxiety is in the setting of upcoming dental procedures and a poorly fitting dental plate. - Management of alcohol withdrawal and other medical concerns per primary team. Pt is actively scoring on AWSS protocol and receiving intermittent lorazepam. Recommend discontinuation of bupropion given patient is at increased risk of seizure in the setting of acute alcohol withdrawal, and for the same reason this particular medication is not ideal given longstanding alcohol abuse. Would suggest outpatient re-evaluation before this medication is resumed. - Given history of respiratory problems and alcohol abuse, would use of benzodiazepines only for treatment of acute withdrawal symptoms while inpatient. - Per the patient's reports, her present anxiety is related to very specific stressors - primary her dental concerns. Seems most appropriate to encourage and assist patient with directly targeting this underlying stressor. - Pt did agree to attempt to resume outpatient therapy and was willing for a referral for outpatient psychiatry as well. Case management can be consulted for assistance with substance abuse treatment as desired by the patient, who is presently verbalizing a desire for sobriety. Inpatient rehab is indicated, and if she is not willing, IOP. - Pt denies acute safety concerns. She admits to intermittent hopelessness, but denies acute SI. No indication at this time for inpatient psychiatric treatment. Please reach out to our service with any additional questions or updates. (1) Alcohol dependence: Substance use status: unspecified alcohol-induced disorder Qualified Code(s): F10.29 - Alcohol dependence with unspecified alcohol-induced disorder (2) Depression: Depression Type: other depression Qualified Code(s): F32.89 - Other specified depressive episodes Psych History Identifying Data 60-year-old female admitted medically on 08/15/2020 after presenting to the ED with shortness of breath. Pt reported recent relapse of alcohol use, history of alcohol abuse. Psychiatric consultation requested to evaluate patient for worsening anxiety. Chief Complaint "One day I got a toothache, and it just wouldn't let up." History of Present Illness Lakeisha Aguirre is a 60-year-old female admitted medically on 08/15/20 after presenting to the ED via EMS due to concern for shortness of breath and cough. Pt is reportedly on continuous oxygen at home and has a history of COPD. Pt had admitted during her initial assessments that she had also relapsed and was drinking heavily. AWSS protocol ordered and patient has been requiring intermittent lorazepam based on scores. Psychiatric consultation was requested to evaluate patient for reports of worsening anxiety. H&P indicates anxiety is related to poorly fitted dental plate and anticipatory anxiety regarding a dental procedure. Pt was cooperative with psychiatric assessment and reports "I'm an alcoholic, but I was sober for like 8 or 10 months." "One day I got a toothache, and it just wouldn't let up." Pt shared the numerous visits she has had to her dental office and frustrations related to anticipated cost of procedures to correct these concerns. Pt admits that the stress of this situation was directly related to a relapse with alcohol use. Pt stated that she began drinking again around 2019. In May 2020, she was drinking 2.5 bottles of wine daily. Pt admits to withdrawal symptoms of tremor and heat/cold intolerance. We reviewed recommendation to discontinue bupropion in the setting of acute withdrawal/alcohol abuse. Pt verbalized understanding and was agreeable. Pt admits to "depression in the first place, but deep winter depression." When asked about her Depakote prescription, patient states it was started for anxiety. Pt agreed that there had been conversations about bipolar disorder with her past psychiatrist. Pt admits to intermittent feelings of hopelessness, but denies active SI. She denies current safety concerns and reports feeling as though she could reach out to her and son for support as needed. Pt agreed to allowing our service to explore potential to resume outpatient therapy as well as referrals for outpatient psychiatry. Pt denied other acute needs at this time. Past Psychiatric History Previous Psych History: Reports history of outpatient psychiatry with Dr. Mosqueda, however, missed too many appointments. Pt also was meeting with Yobany Cheek for D&A counseling - last in 02/2020. Outpatient Services: Medications prescribed by PCP. History of Previous Suicide Attempt: No Allergies Allergy/AdvReac Type Severity Reaction Status Date / Time naltrexone [From Vivitrol] AdvReac Intermediate Hair Verified 08/15/20 02:54 loss/ingrown hairs over body RACIEL Inhibitors AdvReac Mild COUGH Verified 08/15/20 02:54 Home Medications Medication Instructions Recorded Confirmed Type ergocalciferol (vitamin D2) 50,000 unit PO MONTHLY 11/03/19 08/15/20 History clonidine 1 patch TOPICAL WK 11/22/19 08/15/20 History acetylcysteine 200 mg/mL (20 %) 3 ml INH Q6H PRN #200 ml 12/09/19 08/15/20 Rx solution bupropion HCl 150 mg tablet,12 hr 150 mg PO BID 12/09/19 08/15/20 History sustained-release ipratropium 0.5 mg-albuterol 3 mg 3 ml INH Q8H PRN #360 ml 12/09/19 08/15/20 Rx (2.5 mg base)/3 mL nebulization soln levocetirizine 5 mg tablet 5 mg PO DAILY PRN #90 tab 12/09/19 08/15/20 Rx nebulizers #1 ea 12/09/19 03/21/20 Rx divalproex [Depakote] 500 mg PO HS 02/29/20 08/15/20 History fluticasone propionate [Allergy 1 spray INTNAS QAM PRN 02/29/20 08/15/20 History Relief (fluticasone)] pantoprazole 40 mg PO DAILY #30 tab 03/07/20 08/15/20 Rx albuterol sulfate 90 mcg/actuation 2 puff INH Q6H PRN #18 gm 03/21/20 08/15/20 Rx aerosol inhaler umeclidinium 62.5 mcg-vilanterol 1 inh INH QAM #60 ea 03/21/20 08/15/20 Rx 25 mcg/actuation powdr for inhalation prednisone 5 mg PO DAILY 08/15/20 08/15/20 History trazodone 50 - 100 mg PO HS PRN 08/15/20 08/15/20 History Substance Abuse History Most recently patient has been smoking up to a pack per day of cigarettes. Reports 8-10 months of sobriety prior to 2019. Beginning in May 2020, patient began drinking 2.5 bottles of wine on a daily basis. Reports history of D&A counseling, AA meetings, IOPs, [facility] Personal History Living Arrangements: Home Employment Status: Disabled Marital Status: Number Of Children: 3 Patient History Medical History (Updated 08/16/20 @ 15:19 by Ame Pablo PA-C) Alcoholic hepatitis Anemia Anxiety reason for depakote Ascites Asthma Atelectasis of left lung COPD (chronic obstructive pulmonary disease) inhaler daily/prn Depression Emphysema of lung Hiatal hernia Jaundice Leukocytosis (04/21/14) On home oxygen therapy 1-2L N/C prn Sepsis due to Streptococcus pneumoniae hx of Sleep apnea cpap with 2 L oxygen at hs Tachycardia (08/17/13) Surgical History History of bronchoscopy History of colonoscopy History of ovarian cystectomy History of tooth extraction S/P removal of ovarian cyst Family History Father Myocardial infarction Hypertension Other No family history of adverse response to anesthesia Social History Smoking Status: Current every day smoker Tobacco Type: Cigarettes Cigarettes Per Day: 20; Second Hand Exposure: Yes; Hx Alcohol Use: Yes Alcohol type: wine Alcohol Intake Frequency Comment: 500 ml a day Hx Substance Use: No Preferred Language: Croatian Communication Ability: Effective 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 Pt is appropriately dressed for clinical setting, wearing a hospital gown. Hair is pulled back but appears somewhat unkempt. Pt intermittently wearing nasal cannula. Eye Contact: + fair eye contact Motor Behavior: + tremor most notable in hands bilaterally, intermittency observed to be affecting neck/head Speech: normal rate/rhythm/volume of speech Affect: + anxious affect and + tearful affect (only intermittently) Mood: + anxious mood Thought Process: goal directed thought process and clear/coherent thought process Thought Content: reality based without delusions and + hopelessness (intermittently ) Suicidal Thoughts: denies suicidal thoughts and denies suicidal intent reports occasional passive thoughts to "escape", but denies active SI Homicidal Thoughts: denies homicidal thoughts Hallucinations: no auditory hallucinations and no visual hallucinations Cognition: attention grossly intact and language grossly intact Estimated Intelligence: consistent with education level Insight: + fair insight Judgement: + fair judgement Vital Signs (Past 24 Hours): Last Vital Signs Temp 36.6 C 08/16/20 08:53 Pulse 79 08/16/20 09:00 Resp 18 08/16/20 08:53 BP 139/83 08/16/20 08:53 Pulse Ox 90 08/16/20 08:53 Review of Systems Constitutional: reports fatigue, weakness, cold sweats, hot flashes Cardiovascular: denied Respiratory: reports shortness of breath, persistent cough Gastrointestinal: denied Neurological: full body tremor, not present at baseline per patient Psychiatric: denies symptoms other than stated above Total of at least 10 systems reviewed, pertinent positives as above and in HPI. Results & Data (PSY) Medications Administered Albuterol (Albut/Ipratrop 3mg/0.5mg Neb 3 Ml Vial) 3 ml NEB QIDR YASMANI Stop: 09/14/20 17:22 Last Admin: 08/16/20 08:33 Dose: 3 ml Documented by: [id number] Admin: 08/15/20 19:28 Dose: 3 ml Documented by: [id number] Admin: 08/15/20 17:35 Dose: Not Given Documented by: [id number] Bupropion HCl (Bupropion Sr 150 Mg Tabcr) 150 mg PO BID YASMANI Stop: 09/14/20 17:22 Last Admin: 08/16/20 07:41 Dose: 150 mg Documented by: [id number] Admin: 08/15/20 23:42 Dose: Not Given Documented by: [id number] Admin: 08/15/20 18:36 Dose: 150 mg Documented by: [id number] Divalproex Sodium (Divalproex Delay Release 500 Mg Tab) 500 mg PO HS [facility] Stop: 09/14/20 20:59 Last Admin: 08/15/20 20:22 Dose: 500 mg Documented by: [id number] Enoxaparin Sodium (Enoxaparin Inj 40 Mg/0.4 Ml Syr) 40 mg SQ Q24H YASMANI Stop: 09/14/20 17:59 Last Admin: 08/15/20 18:36 Dose: 40 mg Documented by: [id number] Folic Acid (Folic Acid 1 Mg Tab) 1 mg PO QAM YASMANI Stop: 09/14/20 08:59 Last Admin: 08/16/20 07:42 Dose: 1 mg Documented by: [id number] Admin: 08/15/20 10:53 Dose: 1 mg Documented by: [id number] Guaifenesin (Guaifenesin 600 Mg Tabcr) 600 mg PO Q12 YASMANI Stop: 09/14/20 17:22 Last Admin: 08/16/20 07:42 Dose: 600 mg Documented by: [id number] Admin: 08/15/20 20:22 Dose: 600 mg Documented by: [id number] Admin: 08/15/20 18:36 Dose: 600 mg Documented by: [id number] Lorazepam (Ativan) 0.5 mg in 1 mls @ 1 mls/min IV Q4H PRN PRN Reason: Alcohol Withdrawal Stop: 09/14/20 05:56 Last Admin: 08/15/20 20:18 Dose: 1 mls/min Documented by: [id number] Admin: 08/15/20 15:09 Dose: 1 mls/min Documented by: [id number] Admin: 08/15/20 10:54 Dose: 1 mls/min Documented by: [id number] Azithromycin 500 mg/ Dextrose 255 mls @ 125 mls/hr IV DAILY YASMANI Stop: 08/22/20 13:44 Last Infusion: 08/16/20 09:50 Dose: 0 mls/hr Documented by: [id number] Admin: 08/16/20 07:47 Dose: 125 mls/hr Documented by: [id number] Infusion: 08/15/20 16:42 Dose: 0 mls/hr Documented by: [id number] Admin: 08/15/20 14:15 Dose: 125 mls/hr Documented by: [id number] Methylprednisolone 40 mg/ (Syringe) 0.64 mls @ 1.5 mls/min IV Q8H YASMANI Stop: 09/14/20 13:59 Last Admin: 08/16/20 06:15 Dose: 1.5 mls/min Documented by: [id number] Admin: 08/15/20 21:45 Dose: 1.5 mls/min Documented by: [id number] Admin: 08/15/20 14:03 Dose: Not Given Documented by: [id number] Magnesium Sulfate/Dextrose (Magnesium Sulfate / D5w) 1 gm in 100 mls @ 50 mls/hr IV ONE ONE Stop: 08/16/20 11:19 Last Admin: 08/16/20 09:47 Dose: Not Given Documented by: [id number] Lorazepam (Lorazepam 1 Mg Tab) 1 - 3 mg PO UD PRN; Protocol PRN Reason: EtoH Withdrawal AWSS 6-10+ Stop: 09/14/20 05:26 Last Admin: 08/16/20 08:02 Dose: 1 mg Documented by: [id number] Admin: 08/15/20 17:33 Dose: 2 mg Documented by: [id number] Admin: 08/15/20 15:11 Dose: 2 mg Documented by: [id number] Lorazepam (Lorazepam 0.5 Mg Tab) 0.5 mg PO Q4H PRN PRN Reason: Anxiety Stop: 09/15/20 09:45 Last Admin: 08/16/20 10:23 Dose: 0.5 mg Documented by: [id number] Miscellaneous (Remove Nicoderm Patch) 1 ea N/A [facility] Stop: 09/15/20 08:58 Last Admin: 08/16/20 07:48 Dose: 1 ea Documented by: [id number] Admin: 08/16/20 07:41 Dose: 1 ea Documented by: [id number] Miscellaneous (Check Clonidine Patch Placement) 1 ea N/A [facility] Stop: 09/14/20 17:22 Last Admin: 08/16/20 07:41 Dose: 1 ea Documented by: [id number] Admin: 08/16/20 00:25 Dose: 1 ea Documented by: [id number] Admin: 08/15/20 18:03 Dose: 1 ea Documented by: [id number] Nicotine (Nicotine 14 Mg/24 Hr Patch) 14 mg TD [facility] Stop: 09/14/20 13:29 Last Admin: 08/16/20 07:41 Dose: 14 mg Documented by: [id number] Admin: 08/15/20 14:01 Dose: 14 mg Documented by: [id number] Pantoprazole Sodium (Pantoprazole 40 Mg Tab) 40 mg PO DAILY [facility] Stop: 09/14/20 17:22 Last Admin: 08/16/20 07:42 Dose: 40 mg Documented by: [id number] Admin: 08/15/20 18:36 Dose: 40 mg Documented by: [id number] Thiamine HCl (Thiamine Hcl 100 Mg Tab) 100 mg PO QAM YASMANI Stop: 09/14/20 08:59 Last Admin: 08/16/20 07:42 Dose: 100 mg Documented by: [id number] Admin: 08/15/20 10:54 Dose: 100 mg Documented by: [id number] Trazodone HCl (Trazodone Hcl 50 Mg Tab) 50 mg PO HS [facility]AS[facility] Stop: 09/14/20 20:59 Last Admin: 08/15/20 20:22 Dose: 50 mg Documented by: [id number] Coding Level of Care Code 86431 [facility] Intl Hosp Care Lvl 2 Diagnoses Alcohol dependence F10.29 Substance use status: unspecified alcohol-induced disorder Depression F32.89 Depression Type: other depression
[2020-08-16] MEDS: LORazepam 0.5 MG/1 ML VIAL IV PRN (12:44)
[2020-08-16] MEDS ORDERED: ACETYLCYSTEINE 10% INHAL SOLN 4 ML **DISPENSED BY RESP. INH SCH (13:00)
[2020-08-16 14:52] LABS: Reticulocyte % 3.3 % (0.5-2.0); Reticulocytes # 0.1 10^6/uL (0.02-0.10)
[2020-08-16] MEDS: ACETYLCYSTEINE 20% INHAL SOLN 4ML ***DISPENSED BY RESP. INH SCH ×2 (15:22→19:26)
[2020-08-16] MEDS: DOXYCYCLINE HYCLATE 100 MG in DEXTROSE 5% 100 ML IV SCH (15:51)
[2020-08-16] MEDS: ENOXAPARIN INJ 40 MG/0.4 ML SYR SQ SCH (17:02)
[2020-08-16] MEDS ORDERED: chlordiazePOXIDE ALCOHOL WITHDRAWL 25MG PO STA (17:26)
[2020-08-16] MEDS: chlordiazePOXIDE HCl 25 MG CAP PO SCH ×2 (17:46→23:35)
[2020-08-16] MEDS: traZODone HCL 50 MG TAB PO SCH (20:17)
[2020-08-16] MEDS: DIVALPROEX DELAY RELEASE 500 MG TAB PO SCH (20:18)
[2020-08-17] MEDS: CHECK CLONIDINE PATCH PLACEMENT SCH ×3 (01:27→15:06)
[2020-08-17] MEDS: DOXYCYCLINE HYCLATE 100 MG in DEXTROSE 5% 100 ML IV SCH ×2 (03:00→13:52)
[2020-08-17] MEDS: chlordiazePOXIDE HCl 25 MG CAP PO SCH ×3 (05:05→17:04)
[2020-08-17] MEDS: methylPREDNISolone 40 MG in SYRINGE 0 ML IV SCH (05:05)
[2020-08-17 05:40] LABS: Hematocrit (blood only) 31.8 % (37-47); Immature Granulocytes # (auto) 0.09 K/uL (0.00-0.02); Immature Granulocytes % (auto) 2.1 %; Lymphocytes # (auto) 0.41 K/uL (1.2-3.4); Lymphocytes % (auto) 9.6 %; Mean Corpuscular Hemoglobin 33.9 pg (25-34); Mean Corpuscular Hgb Conc 31.4 g/dL (32-36); Mean Corpuscular Volume 107.8 fL (80-100); Mean Platelet Volume 9.2 fL (7.4-10.4); Monocytes # (auto) 0.35 K/uL (0.11-0.59); Monocytes % (auto) 8.2 %; Neutrophils # (auto) 3.42 K/uL (1.4-6.5); Neutrophils % (auto) 80.1 %; Platelet Count 152 K/uL (130-400); RDW Coefficient of Variation 13.6 % (11.5-14.5); RDW Standard Deviation 53.7 fL (36.4-46.3); Red Blood Count 2.95 M/uL (4.2-5.4); White Blood Count 4.27 K/uL (4.8-10.8)
[2020-08-17 06:14] LABS: Albumin Level 2.6 gm/dl (3.4-5.0); BUN Creatinine Ratio 21.5 (10-20); Calcium 8.5 mg/dl (8.5-10.1); Creatinine Clr Calc Pharmacy 82.1 ml/min; Est GFR (African American) 112.2; Est GFR (Non-African American) 96.8; Potassium 3.8 mmol/L (3.5-5.1)
[2020-08-17 06:17] LABS: Bilirubin Direct 0.3 mg/dl (0-0.2); Bilirubin,Total 0.4 mg/dl (0.2-1); Ferritin 242.8 ng/ml (8-388); Total Protein 6.1 gm/dl (6.4-8.2)
[2020-08-17] MEDS: ACETYLCYSTEINE 20% INHAL SOLN 4ML ***DISPENSED BY RESP. INH SCH ×4 (07:15→19:52)
[2020-08-17] MEDS: ALBUT/IPRATROP 3MG/0.5MG NEB 3 ML VIAL NEB SCH ×4 (07:15→19:52)
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
[2020-08-17] MEDS: guaiFENesin 600 MG TABCR PO SCH ×2 (08:15→20:18)
[2020-08-17] MEDS: CETIRIZINE HCL 10 MG TABLET PO PRN (08:15)
[2020-08-17] MEDS: FOLIC ACID 1 MG TAB PO SCH (08:15)
[2020-08-17] MEDS: THIAMINE HCL 100 MG TAB PO SCH (08:15)
[2020-08-17] MEDS: PANTOprazole 40 MG TAB PO SCH ×2 (08:16→20:18)
[2020-08-17] MEDS: NICOTINE 14 MG/24 HR PATCH TD SCH (08:38)
[2020-08-17 13:06] LABS: 18KDIGG Band NON-REACTIVE; 23KDIGG Band NON-REACTIVE; 23KDIGM Band REACTIVE; 28KDIGG Band NON-REACTIVE; 30KDIGG Band NON-REACTIVE; 39KDIGG Band NON-REACTIVE; 39KDIGM Band NON-REACTIVE; 41KDIGG Band REACTIVE; 41KDIGM Band NON-REACTIVE; 45KDIGG Band NON-REACTIVE; 58KDIGG Band NON-REACTIVE; 66KDIGG Band NON-REACTIVE; 93KDIGG Band NON-REACTIVE; Lyme Antibodies, WB IgG NEGATIVE (NEGATIVE); Lyme Antibodies, WB IgM NEGATIVE (NEGATIVE)
[2020-08-17] MEDS: LORazepam 1 MG TAB PO PRN ×2 (13:50→20:17)
[2020-08-17] MEDS ORDERED: methylPREDNISolone 30 MG in SYRINGE 0 ML IV SCH (14:00)
[2020-08-17] MEDS: NICOTINE 21 MG/24 HR TDSY TD SCH (14:24)
[2020-08-17] MEDS: ENOXAPARIN INJ 40 MG/0.4 ML SYR SQ SCH (17:04)
[2020-08-17] MEDS: traZODone HCL 50 MG TAB PO SCH (20:17)
[2020-08-17] MEDS: DIVALPROEX DELAY RELEASE 500 MG TAB PO SCH (20:18)
[2020-08-18] MEDS: CHECK CLONIDINE PATCH PLACEMENT SCH ×4 (01:17→23:29)
[2020-08-18] MEDS: chlordiazePOXIDE HCl 25 MG CAP PO SCH ×2 (03:00→09:30)
[2020-08-18] MEDS: DOXYCYCLINE HYCLATE 100 MG in DEXTROSE 5% 100 ML IV SCH ×2 (04:02→16:06)
[2020-08-18] MEDS: ACETYLCYSTEINE 20% INHAL SOLN 4ML ***DISPENSED BY RESP. INH SCH ×4 (07:19→19:14)
[2020-08-18] MEDS: ALBUT/IPRATROP 3MG/0.5MG NEB 3 ML VIAL NEB SCH ×4 (07:19→19:14)
[2020-08-18] MEDS: guaiFENesin 600 MG TABCR PO SCH ×2 (07:37→20:04)
[2020-08-18] MEDS: PANTOprazole 40 MG TAB PO SCH ×2 (07:37→20:03)
[2020-08-18] MEDS: FOLIC ACID 1 MG TAB PO SCH (07:38)
[2020-08-18] MEDS: THIAMINE HCL 100 MG TAB PO SCH (07:39)
[2020-08-18] MEDS: CETIRIZINE HCL 10 MG TABLET PO PRN (07:40)
[2020-08-18] MEDS: NICOTINE 21 MG/24 HR TDSY TD SCH (07:41)
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
[2020-08-18 08:39] LABS: Basophils # (auto) 0.03 K/uL (0-0.2); Basophils % (auto) 0.6 %; Hematocrit (blood only) 34.5 % (37-47); Hemoglobin 11.1 g/dL (12.0-16.0); Immature Granulocytes # (auto) 0.21 K/uL (0.00-0.02); Immature Granulocytes % (auto) 4.3 %; Lymphocytes # (auto) 0.98 K/uL (1.2-3.4); Lymphocytes % (auto) 20.2 %; Mean Corpuscular Hemoglobin 34.5 pg (25-34); Mean Corpuscular Hgb Conc 32.2 g/dL (32-36); Mean Corpuscular Volume 107.1 fL (80-100); Monocytes # (auto) 0.75 K/uL (0.11-0.59); Monocytes % (auto) 15.5 %; Neutrophils # (auto) 2.87 K/uL (1.4-6.5); Neutrophils % (auto) 59.4 %; Nucleated RBC # (auto) 0.07 K/uL (0-0); Nucleated RBC % (auto) 1.4 %; Platelet Count 157 K/uL (130-400); RDW Coefficient of Variation 13.5 % (11.5-14.5); RDW Standard Deviation 53.3 fL (36.4-46.3); Red Blood Count 3.22 M/uL (4.2-5.4); White Blood Count 4.84 K/uL (4.8-10.8)
[2020-08-18] MEDS ORDERED: predniSONE 20 MG TAB PO SCH (09:00)
[2020-08-18] MEDS ORDERED: cloNIDine HCL 0.1 MG/24 HR TRANSDERM SYS TD SCH (09:00)
[2020-08-18 09:12] LABS: Albumin Level 2.7 gm/dl (3.4-5.0); BUN Creatinine Ratio 26.2 (10-20); Bilirubin Direct 0.1 mg/dl (0-0.2); Bilirubin,Total 0.5 mg/dl (0.2-1); Calcium 9.4 mg/dl (8.5-10.1); Creatinine Clr Calc Pharmacy 73.2 ml/min; Est GFR (African American) 106.5; Est GFR (Non-African American) 91.9; Potassium 3.7 mmol/L (3.5-5.1); Total Protein 5.9 gm/dl (6.4-8.2)
[2020-08-18] MEDS: SPIRONOLACTONE 25 MG TAB PO SCH (09:44)
--- NOTE | 2020-08-18 11:00 | XRay Report ---
SINGLE VIEW CHEST CLINICAL HISTORY: Dyspnea FINDINGS: An AP, portable, upright chest radiograph is compared to study dated 08/15/2020 and correlate d with chest CT dated 11/22/2019. The cardiomediastinal silhouette is unremarkable noting atherosclero tic calcification of the thoracic aorta. A hiatal hernia is noted. Emphysema and chronic interstitial thickening is similar to previous. Scarring/atelectasis is noted at the lung bases. There are scatte red calcified granulomas. No airspace consolidation or large pleural effusion is identified. No pneum othorax is seen. The skeletal structures are osteopenic. The bony thorax is grossly intact. IMPRESSION: Emphysematous change with no acute cardiopulmonary abnormality. ACT 112: Negative or not required by law. Electronically signed by: Alexis Angel M.D. 08/18/2020 10:58 AM
[2020-08-18] MEDS: ENOXAPARIN INJ 40 MG/0.4 ML SYR SQ SCH (17:12)
[2020-08-18] MEDS: POLYETHYLENE (MIRALAX) 17 GM PACK PO SCH (19:53)
[2020-08-18] MEDS: DOCUSATE SODIUM 100 MG CAP PO SCH (20:03)
[2020-08-18] MEDS: DIVALPROEX DELAY RELEASE 500 MG TAB PO SCH (20:04)
[2020-08-18] MEDS: traZODone HCL 50 MG TAB PO SCH (20:04)
[2020-08-18] MEDS: ACETAMINOPHEN 325 MG TAB PO PRN (21:22)
[2020-08-19] MEDS: DOXYCYCLINE HYCLATE 100 MG in DEXTROSE 5% 100 ML IV SCH ×2 (02:41→15:59)
[2020-08-19 06:31] LABS: Albumin Level 2.5 gm/dl (3.4-5.0); BUN Creatinine Ratio 30.9 (10-20); Bilirubin Direct 0.3 mg/dl (0-0.2); Bilirubin,Total 0.5 mg/dl (0.2-1); Calcium 9.1 mg/dl (8.5-10.1); Creatinine Clr Calc Pharmacy 64.9 ml/min; Est GFR (African American) 93.6; Est GFR (Non-African American) 80.8; Total Protein 5.6 gm/dl (6.4-8.2)
[2020-08-19] MEDS: ALBUT/IPRATROP 3MG/0.5MG NEB 3 ML VIAL NEB SCH ×4 (07:14→19:25)
[2020-08-19] MEDS: ACETYLCYSTEINE 20% INHAL SOLN 4ML ***DISPENSED BY RESP. INH SCH ×4 (07:14→19:25)
[2020-08-19] MEDS: CHECK CLONIDINE PATCH PLACEMENT SCH ×3 (07:25→18:03)
[2020-08-19] MEDS: POLYETHYLENE (MIRALAX) 17 GM PACK PO SCH (07:26)
[2020-08-19] MEDS: PANTOprazole 40 MG TAB PO SCH ×2 (07:27→21:08)
[2020-08-19] MEDS: guaiFENesin 600 MG TABCR PO SCH (07:27)
[2020-08-19] MEDS: SPIRONOLACTONE 25 MG TAB PO SCH (07:28)
[2020-08-19] MEDS: FOLIC ACID 1 MG TAB PO SCH (07:29)
[2020-08-19] MEDS: THIAMINE HCL 100 MG TAB PO SCH (07:30)
[2020-08-19] MEDS: NICOTINE 21 MG/24 HR TDSY TD SCH (07:30)
[2020-08-19] MEDS: DOCUSATE SODIUM 100 MG CAP PO SCH ×2 (07:31→21:08)
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
[2020-08-19] MEDS ORDERED: OPTIRAY 320 100ml IV ONE (09:02)
--- NOTE | 2020-08-19 09:35 | CT Scan Report ---
ABDOMEN AND PELVIS CT WITH AND WITHOUT INTRAVENOUS CONTRAST, LIVER PROTOCOL HISTORY: elevated LFTs, admitted poor appetite, hx etoh TECHNIQUE: Multiaxial CT images of the abdomen and pelvis were performed both before and after the in travenous administration of 94 cc of Optiray 320 to evaluate the liver. COMPARISON STUDY: Abdomen and pelvis CT 08/13/2018. FINDINGS: A few bibasilar linear densities consistent with subsegmental atelectasis. There are scatte red calcified granulomas within the lung bases. No pneumoperitoneum. No pneumatosis. Patchy areas of sclerosis within the bilateral femoral heads consistent with avascular necrosis. No evidence for femo ral head collapse. There is moderate hiatus hernia, unchanged. Severe hepatic steatosis which has pro gressed. Subtle nodular contour to the liver consistent with cirrhosis. No hepatic or splenic masses. The spleen is normal in size. The pancreas, adrenal glands, kidneys, gallbladder are unremarkable. N o retroperitoneal lymphadenopathy. Mild calcified plaque within the normal caliber abdominal aorta. T he main portal vein is patent. The bladder, uterus, bilateral adnexa are within normal limits. Coloni c diverticulosis. No evidence for acute diverticulitis. No bowel wall thickening or obstruction. Norm al appendix. IMPRESSION: 1. Mild hepatic cirrhosis with severe steatosis. 2. No hepatic masses. 3. Moderate hiatus hernia, unchanged. 4. Colonic diverticulosis. No evidence for acute diverticulitis. 5. No bowel wall thickening or obstruction. 6. Bilateral femoral head avascular necrosis. ACT 112: Negative or not required by law. Electronically signed by: Malvin Garcia M.D. 08/19/2020 9:33 AM
[2020-08-19 10:33] LABS: EBV Virus Capsid Ag IgG Ab >750.00 U/mL
--- NOTE | 2020-08-19 12:51 | XRay Report ---
XR hip ALIA 2v w pelvis HISTORY: 60 years-old Female avascular necrosis on CT? Chronic bilateral hand pain COMPARISON: CT abdomen pelvis of same day TECHNIQUE: AP view the pelvis with 2 views of the hips FINDINGS: Contrast is noted within the urinary bladder lumen. Colonic fecal retention. Avascular necrosis of th e bilateral femoral heads is better characterized on CT abdomen and pelvis study of same day. Mild os teoarthritis of the bilateral hips. No acute fracture or articular collapse. IMPRESSION: 1. No acute fracture or dislocation. 2. Avascular necrosis of the femoral heads without articular collapse. 3. Mild bilateral hip osteoarthritis. ACT 112: Negative or not required by law. The above report was generated using voice recognition software. It may contain grammatical, syntax o r spelling errors. Electronically signed by: Idris Lawrence M.D. 08/19/2020 12:49 PM
--- NOTE | 2020-08-19 13:35 | Orthopedic Consultation ---
Date of Service August 19, 2020 Assessment & Plan (1) Avascular necrosis of femoral head: She was seen and examined by Dr. Hernandez today as well. She has some sclerotic change in the femoral heads on CT scan but no signs of AVN on the xray. She really isn't having any symptoms from this and we feel this is an incidental finding on the CT scan. We would not recommend any further imaging, work-up, or intervention for her hips at this time. History of Present Illness Reason for Consultation: .Bilateral femoral head AVN Requesting Physician: . Attending Physician: Daniel Church MD . 60 year old female admitted with copd, h/o alcohol abuse, who we were asked to see regarding CT scan findings of AVN. She denies any hip pain at this time. She does have some pain but says that it is more her low back and has a h/o sciatica type symptoms. Initially denied having groin pain but then said maybe occasionally she gets groin pain. She ambulates independently. Allergies Allergy/AdvReac Type Severity Reaction Status Date / Time naltrexone [From Vivitrol] AdvReac Intermediate Hair Verified 08/15/20 02:54 loss/ingrown hairs over body RACIEL Inhibitors AdvReac Mild COUGH Verified 08/15/20 02:54 Home Medications Medication Instructions Recorded Confirmed Type ergocalciferol (vitamin D2) 50,000 unit PO MONTHLY 11/03/19 08/15/20 History clonidine 1 patch TOPICAL WK 11/22/19 08/15/20 History acetylcysteine 200 mg/mL (20 %) 3 ml INH Q6H PRN #200 ml 12/09/19 08/15/20 Rx solution bupropion HCl 150 mg tablet,12 hr 150 mg PO BID 12/09/19 08/15/20 History sustained-release ipratropium 0.5 mg-albuterol 3 mg 3 ml INH Q8H PRN #360 ml 12/09/19 08/15/20 Rx (2.5 mg base)/3 mL nebulization soln levocetirizine 5 mg tablet 5 mg PO DAILY PRN #90 tab 12/09/19 08/15/20 Rx nebulizers #1 ea 12/09/19 03/21/20 Rx divalproex [Depakote] 500 mg PO HS 02/29/20 08/15/20 History fluticasone propionate [Allergy 1 spray INTNAS QAM PRN 02/29/20 08/15/20 History Relief (fluticasone)] pantoprazole 40 mg PO DAILY #30 tab 03/07/20 08/15/20 Rx albuterol sulfate 90 mcg/actuation 2 puff INH Q6H PRN #18 gm 03/21/20 08/15/20 Rx aerosol inhaler umeclidinium 62.5 mcg-vilanterol 1 inh INH QAM #60 ea 03/21/20 08/15/20 Rx 25 mcg/actuation powdr for inhalation prednisone 5 mg PO DAILY 08/15/20 08/15/20 History trazodone 50 - 100 mg PO HS PRN 08/15/20 08/15/20 History Past Med/Surg History Medical History (Updated 08/19/20 @ 13:33 by Duglas Moffett PA-C) Alcoholic hepatitis Anemia Anxiety reason for depakote Ascites Asthma Atelectasis of left lung COPD (chronic obstructive pulmonary disease) inhaler daily/prn Depression Emphysema of lung Hiatal hernia Jaundice Leukocytosis (04/21/14) On home oxygen therapy 1-2L N/C prn Sepsis due to Streptococcus pneumoniae hx of Sleep apnea cpap with 2 L oxygen at hs Tachycardia (08/17/13) Surgical History History of bronchoscopy History of colonoscopy History of ovarian cystectomy History of tooth extraction S/P removal of ovarian cyst Family History Father Myocardial infarction Hypertension Other No family history of adverse response to anesthesia Social History Smoking Status: Current every day smoker Tobacco Type: Cigarettes Cigarettes Per Day: 20; Second Hand Exposure: Yes; Hx Alcohol Use: Yes Alcohol type: wine Alcohol Intake Frequency Comment: 500 ml a day Hx Substance Use: No Preferred Language: Tunisian Communication Ability: Effective Conference Director Required: No marital status: Current Living Situation: Spouse How many Children do You have: 3 Feels Safe at Home: Yes Assistive Devices: Walker Review of Systems All systems reviewed & are unremarkable except as noted in HPI & below. Physical Exam . Constitutional no altered mental status and not in distress Respiratory + cough; no respiratory distress Cardiovascular Extremities: no edema Musculoskeletal Good hip range of motion bilaterally. No pain with motion. Tender laterally over the greater trochanteric bursa. Psychiatric Orientation: alert and oriented x 3 Results & Data Results & Data Laboratory Results . Diagnostic Findings . CT scan reviewed which shows some sclerotic change of bilateral femoral heads. xray of the pelvis and hip reviewed which shows some mild DJD, well maintained joint space of the hips. No AVN PG Care Time/CCT Total # of Minutes Spent Total Time Spent with Patient: Total time spent is greater than 50% in coordination of care (as documented) at patient's floor/unit and/or counseling patient: Coding Level of Care Code 92230 Inpt Consult Level 3 Diagnoses Avascular necrosis of femoral head M87.059
[2020-08-19 14:03] LABS: MDA negative; MDEA negative; MDMA (Ecstasy) Urine, Confirm negative
[2020-08-19] MEDS ORDERED: chlordiazePOXIDE HCl 5 MG CAP PO SCH (17:30)
[2020-08-19] MEDS: ENOXAPARIN INJ 40 MG/0.4 ML SYR SQ SCH (18:48)
[2020-08-19] MEDS ORDERED: cloNIDine HCL 0.1 MG/24 HR TRANSDERM SYS TD SCH (19:00)
[2020-08-19] MEDS: ACETAMINOPHEN 325 MG TAB PO PRN (19:01)
[2020-08-19] MEDS ORDERED: MELATONIN 3 MG TAB PO PRN (20:30)
[2020-08-19] MEDS: DIVALPROEX DELAY RELEASE 500 MG TAB PO SCH (21:08)
[2020-08-19] MEDS: traZODone HCL 50 MG TAB PO SCH (21:08)
[2020-08-20] MEDS: CHECK CLONIDINE PATCH PLACEMENT SCH ×3 (00:02→15:47)
[2020-08-20 05:36] LABS: Hematocrit (blood only) 34.6 % (37-47); Hemoglobin 10.8 g/dL (12.0-16.0); Mean Corpuscular Hemoglobin 33.8 pg (25-34); Mean Corpuscular Hgb Conc 31.2 g/dL (32-36); Mean Corpuscular Volume 108.1 fL (80-100); Mean Platelet Volume 9.2 fL (7.4-10.4); Nucleated RBC # (auto) 0.06 K/uL (0-0); Nucleated RBC % (auto) 1.2 %; Platelet Count 134 K/uL (130-400); RDW Coefficient of Variation 13.6 % (11.5-14.5); RDW Standard Deviation 53.3 fL (36.4-46.3); White Blood Count 4.81 K/uL (4.8-10.8)
[2020-08-20 06:04] LABS: Albumin Level 2.6 gm/dl (3.4-5.0); BUN Creatinine Ratio 37.7 (10-20); Bilirubin Direct 0.4 mg/dl (0-0.2); Calcium 8.9 mg/dl (8.5-10.1); Creatinine Clr Calc Pharmacy 90.6 ml/min; Est GFR (Non-African American) 100.1; Potassium 3.7 mmol/L (3.5-5.1)
[2020-08-20 06:07] LABS: Bilirubin,Total 0.6 mg/dl (0.2-1)
[2020-08-20 06:20] LABS: Basophils # (auto) 0.01 K/uL (0-0.2); Basophils % (auto) 0.2 %; Eosinophils # (auto) 0.11 K/uL (0-0.5); Eosinophils % (auto) 2.3 %; Immature Granulocytes # (auto) 0.28 K/uL (0.00-0.02); Immature Granulocytes % (auto) 5.8 %; Lymphocytes # (auto) 0.92 K/uL (1.2-3.4); Lymphocytes % (auto) 19.1 %; Monocytes % (auto) 16.6 %; Neutrophils # (auto) 2.69 K/uL (1.4-6.5); Stomatocytes 1+
[2020-08-20] MEDS: ALBUT/IPRATROP 3MG/0.5MG NEB 3 ML VIAL NEB SCH (07:30)
[2020-08-20] MEDS: ACETYLCYSTEINE 20% INHAL SOLN 4ML ***DISPENSED BY RESP. INH SCH (07:32)
[2020-08-20] MEDS: DOCUSATE SODIUM 100 MG CAP PO SCH ×3 (08:07→21:26)
[2020-08-20] MEDS: PANTOprazole 40 MG TAB PO SCH ×2 (08:07→21:21)
[2020-08-20] MEDS: NICOTINE 21 MG/24 HR TDSY TD SCH (08:08)
[2020-08-20] MEDS: SPIRONOLACTONE 12.5 MG TAB PO SCH (08:08)
[2020-08-20] MEDS: THIAMINE HCL 100 MG TAB PO SCH (08:08)
[2020-08-20] MEDS: FOLIC ACID 1 MG TAB PO SCH (08:10)
[2020-08-20] MEDS: POLYETHYLENE (MIRALAX) 17 GM PACK PO SCH (08:12)
[2020-08-20] MEDS ORDERED: DOXYCYCLINE HYCLATE 100 MG CAP PO SCH (09:00)
[2020-08-20] MEDS: LACTULOSE SYRUP 20 GM/30 ML UDC PO SCH (10:38)
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
[2020-08-20] MEDS: ENOXAPARIN INJ 40 MG/0.4 ML SYR SQ SCH (17:40)
[2020-08-20] MEDS: ALBUT/IPRATROP 3MG/0.5MG NEB 3 ML VIAL NEB PRN (17:59)
[2020-08-20] MEDS ORDERED: MICONAZOLE NITRATE POWDER 43 GM EXT PRN (18:20)
[2020-08-20] MEDS: DIVALPROEX DELAY RELEASE 500 MG TAB PO SCH (21:21)
[2020-08-20] MEDS: traZODone HCL 50 MG TAB PO SCH (21:24)
[2020-08-21] MEDS: CHECK CLONIDINE PATCH PLACEMENT SCH ×3 (00:33→15:58)
[2020-08-21 07:30] LABS: Albumin Level 2.5 gm/dl (3.4-5.0); Bilirubin Direct 0.2 mg/dl (0-0.2); Calcium 8.8 mg/dl (8.5-10.1); Creatinine Clr Calc Pharmacy 108.5 ml/min; Est GFR (African American) 122.7; Est GFR (Non-African American) 105.9; Potassium 3.4 mmol/L (3.5-5.1)
[2020-08-21 07:33] LABS: Bilirubin,Total 0.6 mg/dl (0.2-1); Total Protein 5.8 gm/dl (6.4-8.2)
[2020-08-21] MEDS: SPIRONOLACTONE 12.5 MG TAB PO SCH (08:27)
[2020-08-21] MEDS: THIAMINE HCL 100 MG TAB PO SCH (08:27)
[2020-08-21] MEDS: LACTULOSE SYRUP 20 GM/30 ML UDC PO SCH (08:27)
[2020-08-21] MEDS: PANTOprazole 40 MG TAB PO SCH ×2 (08:28→21:47)
[2020-08-21] MEDS: NICOTINE 21 MG/24 HR TDSY TD SCH (08:28)
[2020-08-21] MEDS: FOLIC ACID 1 MG TAB PO SCH (08:29)
[2020-08-21] MEDS: POLYETHYLENE (MIRALAX) 17 GM PACK PO SCH (08:30)
[2020-08-21] MEDS: DOCUSATE SODIUM 100 MG CAP PO SCH ×2 (08:30→21:47)
[2020-08-21] MEDS: ACETAMINOPHEN 325 MG TAB PO PRN (08:37)
[2020-08-21] MEDS ORDERED: POTASSIUM CHLORIDE CRTAB 20 MEQ TABCR PO STA (09:18)
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
[2020-08-21] MEDS: MAGNESIUM SULFATE / D5W 1 GM/100 ML BAG IV SCH ×2 (09:44→11:50)
[2020-08-21] MEDS: ENOXAPARIN INJ 40 MG/0.4 ML SYR SQ SCH (17:39)
[2020-08-21] MEDS: ALBUT/IPRATROP 3MG/0.5MG NEB 3 ML VIAL NEB PRN (19:58)
[2020-08-21] MEDS: DIVALPROEX DELAY RELEASE 500 MG TAB PO SCH (21:46)
[2020-08-21] MEDS: traZODone HCL 50 MG TAB PO SCH (21:46)
[2020-08-22] MEDS: CHECK CLONIDINE PATCH PLACEMENT SCH ×2 (00:24→08:25)
[2020-08-22 07:06] LABS: Albumin Level 2.5 gm/dl (3.4-5.0); Bilirubin Direct 0.2 mg/dl (0-0.2); Calcium 8.8 mg/dl (8.5-10.1); Creatinine Clr Calc Pharmacy 125.9 ml/min; Est GFR (African American) 129.2; Est GFR (Non-African American) 111.5; Magnesium 2.1 mg/dl (1.8-2.4); Potassium 3.9 mmol/L (3.5-5.1)
[2020-08-22 07:08] LABS: Bilirubin,Total 0.5 mg/dl (0.2-1); Total Protein 5.8 gm/dl (6.4-8.2)
[2020-08-22] MEDS: LACTULOSE SYRUP 20 GM/30 ML UDC PO SCH (08:21)
[2020-08-22] MEDS: PANTOprazole 40 MG TAB PO SCH (08:23)
[2020-08-22] MEDS: NICOTINE 21 MG/24 HR TDSY TD SCH (08:23)
[2020-08-22] MEDS: THIAMINE HCL 100 MG TAB PO SCH (08:23)
[2020-08-22] MEDS: SPIRONOLACTONE 12.5 MG TAB PO SCH (08:24)
[2020-08-22] MEDS: CETIRIZINE HCL 10 MG TABLET PO PRN (08:24)
[2020-08-22] MEDS: FOLIC ACID 1 MG TAB PO SCH (08:24)
[2020-08-22] MEDS: DOCUSATE SODIUM 100 MG CAP PO SCH (10:04)
[2020-08-22] MEDS: POLYETHYLENE (MIRALAX) 17 GM PACK PO SCH (10:05)
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
== END 2020-08-22 15:30 | DRG 189 ==
LOC: ED 01:07 → EDINP 05:27 → SUATTDRO 05:27 → EDINP 09:29 → 2S 16:51 → 2N 08-19 17:47

== ENCOUNTER 2021-11-14 11:55 | Inpatient (IN) ==
--- NOTE | 2021-11-14 12:19 | Emergency Department Note ---
Impression & Plan Tachycardia, Anemia, Alcohol use, Acute dehydration ED Provider Note NAME: CHET ZAVALETA AGE: 61 SEX: F : 1960 ARRIVES VIA: Walk-In INFORMANT: Patient, ED PROVIDER(S): Santhosh Wolf MD Chief Complaint: Weakness, dry heaves, alcohol use HPI: Patient presents from home due to concern for worsening weakness. The patient has had associated dry heaves and has a known history of alcohol abuse. The patient did have recurrence of alcohol use approximately 3 months ago but has had worsening alcohol use in the last several days. Last drink was prior to arrival. The patient in the last 36 hours has drank 9 beers and 2 bottles of wine. Patient has no history of COPD chronic cough and does wear 2 L of oxygen at all times. The patient denies any abdominal pain or lower extremity swelling. Patient denies any fevers or chills. The patient was noted to be tachycardic and hypotensive in triage and was placed back in a room fairly quickly. ROS: See HPI for pertinent positives and negatives. A total of 10 systems were reviewed and otherwise negative. Past medical history: See below Surgical history: See below Social history: See below Physical Exam: GENERAL: Mildly ill in appearance, nasal cannula in place. EYE EXAM: Normal conjunctiva. PERRL, no anisocoria and EOM's grossly intact w/o pain. [OROPHARYNX: Moist mucus membranes. Poor dentition. NECK: Supple, no nuchal rigidity, no adenopathy, non-tender. No signs of meningismus. LUNGS: Scant wheezes noted. Normal chest wall mechanics. HEART: Tachycardic and regular, no MRG. ABDOMEN: Abdomen soft, non-tender, normo-active bowel sounds, no masses, no rebound or guarding. BACK: No CVA TTP. SKIN: No rashes and no bruising. UPPER EXTREMITIES: Upper extremities are grossly normal. LOWER EXTREMITIES: Grossly normal, no edema. Negative Homans' sign bilaterally. NEURO EXAM: A&O x3, cranial nerves II-XII grossly intact, normal speech, moves all 4 extremities on command w/o issue. Differential diagnoses: Infection, dehydration, metabolic abnormality, hypo/hyperglycemia, electrolyte disturbance, anemia, hypoxia, cardiac sources, intracerebral event, toxicologic, neurologic, as well as other pathologies. Course: Patient was seen and evaluated the bedside. Full history physical exam was performed. EKG interpreted by me Possible junctional rhythm but regular, rate of 124, normal QRS, right axis deviation. Imaging Studies: See Below Cardiac monitoring: An order was placed for continuous cardiac monitoring. The monitor shows a rate of 112 with regular rhythm. MDM: Patient was seen due to concern for weakness dry heaves and concomitant alcohol use. Blood work is obtained. Patient did have cultures and a lactate ordered. The patient did have IV fluid bolus as well as a banana bag for total of 2 L ordered as well. The patient's blood work is fairly unremarkable. Alcohol is slightly greater than 100. Patient does not appear to be withdrawing. The patient has had maybe 1 total liter of IV fluids. The patient's EKG showed possible junctional rhythm but I do not believe that the patient has had adequate fluid challenge at this time. After further discussion with the patient the patient does not feel that she is able to care for self at home and would like to achieve some sobriety. Patient was ordered gabapentin load and a dose of Ativan. I did speak the on-call hospitalist Dr. Ruiz and the patient was admitted to the medicine service. I did discuss patient's EKG and that the patient had only received 1 of 2 L ordered at this time. He understood. Patient was admitted to the medicine service. Past Med/Surg History Medical History (Updated 11/15/21 @ 08:27 by Santhosh Wolf MD) Alcoholic hepatitis Anemia Anxiety reason for depakote Ascites Asthma Atelectasis of left lung COPD (chronic obstructive pulmonary disease) inhaler daily/prn Depression Emphysema of lung Hiatal hernia Jaundice Leukocytosis (04/21/14) On home oxygen therapy 1-2L N/C prn Sepsis due to Streptococcus pneumoniae hx of Sleep apnea cpap with 2 L oxygen at hs Tachycardia (08/17/13) Surgical History History of bronchoscopy History of colonoscopy History of ovarian cystectomy History of tooth extraction S/P removal of ovarian cyst Family History Father Myocardial infarction Hypertension Other No family history of adverse response to anesthesia Social History Smoking Status: Current every day smoker Tobacco Type: Cigarettes Cigarettes Per Day: 20; Second Hand Exposure: Yes; Tobacco Cessation Education Requested by Patient: No Hx Alcohol Use: Yes Alcohol type: beer, wine and hard liquor Alcohol Intake Frequency Comment: 500 ml a day Hx Substance Use: No Preferred Language: Spanish Communication Ability: Effective Cake Washer Required: No Beliefs That Will Affect Care: None marital status: Current Living Situation: Spouse How many Children do You have: 3 Other Information That Helps Us Care for You: No Feels Safe at Home: Yes Safety Concerns: Feels Safe At This Time Assistive Devices: Denture - Upper, Glasses and Oxygen - Continuous Assistive Devices Comment: 2L Allergies Allergies Allergy/AdvReac Type Severity Reaction Status Date / Time RACIEL Inhibitors AdvReac Intermediate COUGH Verified 11/14/21 15:17 naltrexone [From Vivitrol] AdvReac Intermediate Hair Verified 11/14/21 15:17 loss/ingrown hairs over body Home Meds Home Medications Medication Instructions Recorded Confirmed ergocalciferol (vitamin D2) 1,250 50,000 unit PO MONTHLY 11/03/19 11/14/21 mcg (50,000 unit) capsule clonidine 0.1 mg/24 hr weekly 1 patch TOPICAL WK 11/22/19 11/14/21 transdermal patch fluticasone propionate 50 1 spray INTNAS QAM PRN 02/29/20 11/14/21 mcg/actuation nasal spray,suspension (Allergy Relief (fluticasone)) trazodone 100 mg tablet 100 - 150 mg PO HS PRN 08/15/20 11/14/21 acetaminophen 500 mg tablet 1,000 mg PO Q6H PRN 09/14/20 11/14/21 (Tylenol Extra Strength) aspirin 325 mg tablet 650 mg PO BID PRN 09/14/20 11/14/21 quetiapine 50 mg tablet 50 mg PO HS 11/14/21 11/14/21 topiramate 25 mg tablet 50 mg PO HS 11/14/21 11/14/21 vortioxetine 10 mg tablet 10 mg PO DAILY 11/14/21 11/14/21 (Trintellix) vortioxetine 5 mg tablet 5 mg PO DAILY 11/14/21 11/14/21 (Trintellix) Previous Rx's Medication Instructions Recorded nebulizers (Aeroneb Go Nebulizer) #1 ea 12/09/19 pantoprazole 40 mg tablet,delayed 40 mg PO DAILY #30 tab 03/07/20 release acetylcysteine 200 mg/mL (20 %) 3 ml INH Q8 PRN #200 ml 09/27/20 solution levocetirizine 5 mg tablet 5 mg PO DAILY PRN #90 tab 11/28/20 albuterol sulfate 90 mcg/actuation 2 puff INH Q6H PRN #18 gm 06/22/21 aerosol inhaler ipratropium 0.5 mg-albuterol 3 mg 3 ml INH Q8H PRN #360 ml 06/22/21 (2.5 mg base)/3 mL nebulization soln umeclidinium 62.5 mcg-vilanterol 1 inh INH QAM #60 ea 06/22/21 25 mcg/actuation powdr for inhalation (Anoro Ellipta) Results & Data (ED) Vital Signs Vital Signs - 24 hr 11/14/21 12:08 11/14/21 12:26 11/14/21 12:30 Temperature 36.3 C L Temperature Source Temporal Artery Scan Pulse Rate 132 H 129 H 135 H Pulse Rate [Apical] 114 H Pulse Rate from SpO2 Sensor 126 H 110 H Respiratory Rate 24 24 16 Respiratory Effort / Characteristics Non-Labored Spontaneous Respiratory Depth Normal Blood Pressure 82/51 L Blood Pressure [Left Arm] 93/66 L Blood Pressure Mean 61 Blood Pressure Mean [Left Arm] 75 Pulse Oximetry 95 93 95 Oxygen Delivery Method Nasal Cannula Nasal Cannula Oxygen Flow Rate 2 1.5 Sepsis Recent Fever Within 48 Hours No Sepsis New/Unexplained Change in Mental Status N/A Sepsis Action Taken by Nursing Physician Notified 11/14/21 12:45 11/14/21 13:00 11/14/21 13:01 Temperature Temperature Source Pulse Rate 125 H 105 H 126 H Pulse Rate [Apical] 127 H 122 H Pulse Rate from SpO2 Sensor 125 H 110 H 92 H Respiratory Rate 17 15 18 Respiratory Effort / Characteristics Non-Labored Spontaneous Non-Labored Spontaneous Respiratory Depth Normal Blood Pressure 119/86 138/83 Blood Pressure [Left Arm] 119/86 138/83 Blood Pressure Mean 97 101 Blood Pressure Mean [Left Arm] 97 101 Pulse Oximetry 93 95 96 Oxygen Delivery Method Nasal Cannula Nasal Cannula Oxygen Flow Rate 1.5 1.5 Sepsis Recent Fever Within 48 Hours Sepsis New/Unexplained Change in Mental Status Sepsis Action Taken by Nursing 11/14/21 13:15 11/14/21 13:30 11/14/21 13:45 Temperature Temperature Source Pulse Rate 111 H 108 H 103 H Pulse Rate [Apical] 117 H 108 H Pulse Rate from SpO2 Sensor 99 H 103 H Respiratory Rate 19 18 18 Respiratory Effort / Characteristics Non-Labored Spontaneous Non-Labored Spontaneous Respiratory Depth Normal Blood Pressure 119/88 131/86 128/81 Blood Pressure [Left Arm] 119/88 131/86 Blood Pressure Mean 98 101 96 Blood Pressure Mean [Left Arm] 98 101 Pulse Oximetry 94 94 94 Oxygen Delivery Method Nasal Cannula Room Air Oxygen Flow Rate 1.5 1.5 Sepsis Recent Fever Within 48 Hours Sepsis New/Unexplained Change in Mental Status Sepsis Action Taken by Nursing 11/14/21 14:00 11/14/21 14:15 11/14/21 14:30 Temperature Temperature Source Pulse Rate 106 H 110 H 125 H Pulse Rate [Apical] 123 H 107 H Pulse Rate from SpO2 Sensor 106 H 106 H 107 H Respiratory Rate 16 16 16 Respiratory Effort / Characteristics Non-Labored Spontaneous Non-Labored Spontaneous Respiratory Depth Normal Normal Blood Pressure 125/85 Blood Pressure [Left Arm] 116/96 125/85 Blood Pressure Mean 98 Blood Pressure Mean [Left Arm] 102 98 Pulse Oximetry 95 93 95 Oxygen Delivery Method Nasal Cannula Nasal Cannula Oxygen Flow Rate 1.5 1.5 Sepsis Recent Fever Within 48 Hours Sepsis New/Unexplained Change in Mental Status Sepsis Action Taken by Nursing 11/14/21 14:45 11/14/21 14:52 11/14/21 15:00 Temperature Temperature Source Pulse Rate 117 H 106 H 113 H Pulse Rate [Apical] Pulse Rate from SpO2 Sensor 117 H 107 H 97 H Respiratory Rate 22 30 H 18 Respiratory Effort / Characteristics Respiratory Depth Blood Pressure 118/92 134/68 Blood Pressure [Left Arm] Blood Pressure Mean 100 90 Blood Pressure Mean [Left Arm] Pulse Oximetry 95 93 92 Oxygen Delivery Method Oxygen Flow Rate Sepsis Recent Fever Within 48 Hours Sepsis New/Unexplained Change in Mental Status Sepsis Action Taken by Nursing 11/14/21 15:15 11/14/21 15:30 11/14/21 15:45 Temperature Temperature Source Pulse Rate 104 H 93 H 106 H Pulse Rate [Apical] 120 H Pulse Rate from SpO2 Sensor Respiratory Rate 35 H 25 H 24 Respiratory Effort / Characteristics Non-Labored Spontaneous Respiratory Depth Normal Blood Pressure 144/84 H 126/72 147/72 H Blood Pressure [Left Arm] 144/84 H Blood Pressure Mean 104 90 97 Blood Pressure Mean [Left Arm] 104 Pulse Oximetry 98 Oxygen Delivery Method Room Air Oxygen Flow Rate Sepsis Recent Fever Within 48 Hours Sepsis New/Unexplained Change in Mental Status Sepsis Action Taken by Nursing 11/14/21 16:00 11/14/21 16:01 Temperature Temperature Source Pulse Rate 106 H 103 H Pulse Rate [Apical] Pulse Rate from SpO2 Sensor 91 H 93 H Respiratory Rate 33 H 38 H Respiratory Effort / Characteristics Non-Labored Spontaneous Respiratory Depth Blood Pressure 135/95 Blood Pressure [Left Arm] Blood Pressure Mean 108 Blood Pressure Mean [Left Arm] Pulse Oximetry 93 93 Oxygen Delivery Method Nasal Cannula Oxygen Flow Rate 2 Sepsis Recent Fever Within 48 Hours Sepsis New/Unexplained Change in Mental Status Sepsis Action Taken by Prison Medications Current Medication List: was personally reviewed by me Laboratory Data Attestation: I reviewed the patient's lab results. Result diagrams: 11/15/21 05:22 11/15/21 05:22 Lab Results 11/14/21 11/14/21 11/14/21 Range/Units 12:25 12:25 12:25 WBC 9.29 (4.8-10.8) K/uL RBC 4.52 (4.2-5.4) M/uL Hgb 14.2 (12.0-16.0) g/dL Hct 42.0 (37-47) % MCV 92.9 (80-100) fL MCH 31.4 (25-34) pg MCHC 33.8 (32-36) g/dL RDW Std Deviation 42.7 (36.4-46.3) fL RDW Coeff of Don 12.6 (11.5-14.5) % Plt Count 145 (130-400) K/uL MPV 9.4 (7.4-10.4) fL Immature Gran % (Auto) 0.2 % Neut % (Auto) 80.6 % Lymph % (Auto) 10.3 % [place] % (Auto) 8.7 % Eos % (Auto) 0.1 % Baso % (Auto) 0.1 % Neut # (Auto) 7.48 H (1.4-6.5) K/uL Lymph # (Auto) 0.96 L (1.2-3.4) K/uL [place] # (Auto) 0.81 H (0.11-0.59) K/uL Eos # (Auto) 0.01 (0-0.5) K/uL Baso # (Auto) 0.01 (0-0.2) K/uL Immature Gran # (Auto) 0.02 (0.00-0.02) K/uL PT 10.0 (9.0-12.0) Seconds INR 0.9 (0.9-1.1) APTT 24.2 (21.0-31.0) Seconds PTT Ratio 0.9 Sodium 137 (136-145) mmol/L Potassium 4.1 (3.5-5.1) mmol/L Chloride 99 (98-107) mmol/L Carbon Dioxide 25 (21-32) mmol/L Anion Gap 13 H (3-11) BUN 9 (6-23) mg/dl Creatinine 0.51 L (0.6-1.2) mg/dl Est Cr Clr Drug Dosing 95.9 ml/min Est GFR ( Amer) 119.4 ml/min Est GFR (Non-Af Amer) 103.1 ml/min BUN/Creatinine Ratio 17.6 (10-20) Glucose 117 H (70-99(Fasting)) mg/dl Lactate (0.4-2.0) mmol/L Calcium 10.0 (8.5-10.1) mg/dl Magnesium 1.9 (1.7-2.4) mg/dl Total Bilirubin 0.4 (0.2-1.0) mg/dl AST 34 (13-39) U/L ALT 18 (7-52) U/L Alkaline Phosphatase 116 H (34-104) U/L Troponin I High Sens (0-14) pg/ml Total Protein 7.8 (6.0-8.3) gm/dl Albumin 4.5 (3.4-5.0) gm/dl Globulin 3.3 (2.5-4.0) gm/dl Albumin/Globulin Ratio 1.4 (0.9-2) Lipase (11-82) U/L Urine Color Urine Appearance (Clear) Urine pH (4.5-7.5) Ur Specific [place] (1.000-1.030) Urine Protein (Negative) Urine Glucose (UA) (Negative) Urine Ketones (Negative) Urine Blood (Negative) Urine Nitrite (Negative) Urine Bilirubin (Negative) Urine Urobilinogen (Negative) Ur Leukocyte Esterase (Negative) Ethyl Alcohol mg/dL (<10.0) mg/dl 11/14/21 11/14/21 11/14/21 Range/Units 12:25 12:25 12:25 WBC (4.8-10.8) K/uL RBC (4.2-5.4) M/uL Hgb (12.0-16.0) g/dL Hct (37-47) % MCV (80-100) fL MCH (25-34) pg MCHC (32-36) g/dL RDW Std Deviation (36.4-46.3) fL RDW Coeff of Don (11.5-14.5) % Plt Count (130-400) K/uL MPV (7.4-10.4) fL Immature Gran % (Auto) % Neut % (Auto) % Lymph % (Auto) % [place] % (Auto) % Eos % (Auto) % Baso % (Auto) % Neut # (Auto) (1.4-6.5) K/uL Lymph # (Auto) (1.2-3.4) K/uL [place] # (Auto) (0.11-0.59) K/uL Eos # (Auto) (0-0.5) K/uL Baso # (Auto) (0-0.2) K/uL Immature Gran # (Auto) (0.00-0.02) K/uL PT (9.0-12.0) Seconds INR (0.9-1.1) APTT (21.0-31.0) Seconds PTT Ratio Sodium (136-145) mmol/L Potassium (3.5-5.1) mmol/L Chloride (98-107) mmol/L Carbon Dioxide (21-32) mmol/L Anion Gap (3-11) BUN (6-23) mg/dl Creatinine (0.6-1.2) mg/dl Est Cr Clr Drug Dosing ml/min Est GFR ( Amer) ml/min Est GFR (Non-Af Amer) ml/min BUN/Creatinine Ratio (10-20) Glucose (70-99(Fasting)) mg/dl Lactate 2.2 H* (0.4-2.0) mmol/L Calcium (8.5-10.1) mg/dl Magnesium (1.7-2.4) mg/dl Total Bilirubin (0.2-1.0) mg/dl AST (13-39) U/L ALT (7-52) U/L Alkaline Phosphatase (34-104) U/L Troponin I High Sens 4.1 (0-14) pg/ml Total Protein (6.0-8.3) gm/dl Albumin (3.4-5.0) gm/dl Globulin (2.5-4.0) gm/dl Albumin/Globulin Ratio (0.9-2) Lipase (11-82) U/L Urine Color Urine Appearance (Clear) Urine pH (4.5-7.5) Ur Specific [place] (1.000-1.030) Urine Protein (Negative) Urine Glucose (UA) (Negative) Urine Ketones (Negative) Urine Blood (Negative) Urine Nitrite (Negative) Urine Bilirubin (Negative) Urine Urobilinogen (Negative) Ur Leukocyte Esterase (Negative) Ethyl Alcohol mg/dL 124.6 H (<10.0) mg/dl 11/14/21 11/14/21 11/14/21 Range/Units 12:33 14:14 14:45 WBC (4.8-10.8) K/uL RBC (4.2-5.4) M/uL Hgb (12.0-16.0) g/dL Hct (37-47) % MCV (80-100) fL MCH (25-34) pg MCHC (32-36) g/dL RDW Std Deviation (36.4-46.3) fL RDW Coeff of Don (11.5-14.5) % Plt Count (130-400) K/uL MPV (7.4-10.4) fL Immature Gran % (Auto) % Neut % (Auto) % Lymph % (Auto) % [place] % (Auto) % Eos % (Auto) % Baso % (Auto) % Neut # (Auto) (1.4-6.5) K/uL Lymph # (Auto) (1.2-3.4) K/uL [place] # (Auto) (0.11-0.59) K/uL Eos # (Auto) (0-0.5) K/uL Baso # (Auto) (0-0.2) K/uL Immature Gran # (Auto) (0.00-0.02) K/uL PT (9.0-12.0) Seconds INR (0.9-1.1) APTT (21.0-31.0) Seconds PTT Ratio Sodium (136-145) mmol/L Potassium (3.5-5.1) mmol/L Chloride (98-107) mmol/L Carbon Dioxide (21-32) mmol/L Anion Gap (3-11) BUN (6-23) mg/dl Creatinine (0.6-1.2) mg/dl Est Cr Clr Drug Dosing ml/min Est GFR ( Amer) ml/min Est GFR (Non-Af Amer) ml/min BUN/Creatinine Ratio (10-20) Glucose (70-99(Fasting)) mg/dl Lactate 1.9 (0.4-2.0) mmol/L Calcium (8.5-10.1) mg/dl Magnesium (1.7-2.4) mg/dl Total Bilirubin (0.2-1.0) mg/dl AST (13-39) U/L ALT (7-52) U/L Alkaline Phosphatase (34-104) U/L Troponin I High Sens (0-14) pg/ml Total Protein (6.0-8.3) gm/dl Albumin (3.4-5.0) gm/dl Globulin (2.5-4.0) gm/dl Albumin/Globulin Ratio (0.9-2) Lipase 65 (11-82) U/L Urine Color Yellow Urine Appearance Clear (Clear) Urine pH 6.5 (4.5-7.5) Ur Specific [place] 1.005 (1.000-1.030) Urine Protein Negative (Negative) Urine Glucose (UA) Negative (Negative) Urine Ketones Negative (Negative) Urine Blood Negative (Negative) Urine Nitrite Negative (Negative) Urine Bilirubin Negative (Negative) Urine Urobilinogen Negative (Negative) Ur Leukocyte Esterase Negative (Negative) Ethyl Alcohol mg/dL (<10.0) mg/dl Administered Medications Enoxaparin Sodium (Enoxaparin Inj 40 Mg/0.4 Ml Syr) 40 mg SQ Q24H YASMANI Stop: 12/14/21 18:59 Last Admin: 11/14/21 19:56 Dose: 40 mg Documented by: [id number] Folic Acid (Folic Acid 1 Mg Tab) 1 mg PO QAM [facility] Stop: 12/14/21 18:05 Last Admin: 11/14/21 19:55 Dose: 1 mg Documented by: [id number] Guaifenesin (Guaifenesin 600 Mg Tabcr) 600 mg PO Q12 YASMANI Stop: 12/14/21 20:59 Last Admin: 11/14/21 19:57 Dose: 600 mg Documented by: [id number] Lactated Ringer's (Lr) 1,000 mls @ 125 mls/hr IV .Q8H YASMANI Stop: 12/14/21 18:05 Last Admin: 11/15/21 02:44 Dose: 125 mls/hr Documented by: [id number] Infusion: 11/15/21 02:44 Dose: 125 mls/hr Documented by: [id number] Admin: 11/14/21 18:50 Dose: 125 mls/hr Documented by: [id number] Miscellaneous (*Vortioxetine [Trintellix]*Order Awaiting Action) 1 ea N/A QS [facility] Stop: 12/15/21 00:00 Last Admin: 11/15/21 00:52 Dose: Not Given Documented by: [id number] Miscellaneous (Check Clonidine Patch Placement) 1 ea N/A QS [facility] Stop: 12/14/21 18:05 Last Admin: 11/15/21 00:51 Dose: Not Given Documented by: [id number] Admin: 11/14/21 19:55 Dose: Not Given Documented by: [id number] Nicotine (Nicotine 14 Mg/24 Hr Patch) 14 mg TD QAM [facility] Stop: 12/14/21 18:05 Last Admin: 11/14/21 19:55 Dose: 14 mg Documented by: [id number] Quetiapine Fumarate (Quetiapine Fumarate 25 Mg Tablet) 50 mg PO HS YASMANI Stop: 12/14/21 20:59 Last Admin: 11/14/21 19:58 Dose: 50 mg Documented by: [id number] Sucralfate (Sucralfate 1 Gm/10 Ml Udc) 1 gm PO QID YASMANI Stop: 12/14/21 18:05 Last Admin: 11/14/21 22:30 Dose: Not Given Documented by: [id number] Admin: 11/14/21 19:56 Dose: 1 gm Documented by: [id number] Thiamine HCl (Thiamine Hcl 100 Mg Tab) 100 mg PO QAM YASMANI Stop: 12/14/21 18:05 Last Admin: 11/14/21 19:56 Dose: 100 mg Documented by: [id number] Topiramate (Topiramate 50 Mg Tab) 50 mg PO HS [facility] Stop: 12/14/21 20:59 Last Admin: 11/14/21 19:58 Dose: 50 mg Documented by: [id number] Discontinued Medications Gabapentin (Gabapentin 400 Mg Cap) 800 mg PO NOW ONE Stop: 11/14/21 14:43 Last Admin: 11/14/21 15:14 Dose: 800 mg Documented by: [id number] Gabapentin (Gabapentin 400 Mg Cap) 400 mg PO Q6H YASMANI Stop: 11/15/21 02:46 Last Admin: 11/15/21 02:45 Dose: 400 mg Documented by: [id number] Admin: 11/14/21 19:57 Dose: 400 mg Documented by: [id number] Sodium Chloride (Nss 1000ml) 1,000 mls @ 999 mls/hr IV .Q1H1M ONE Stop: 11/14/21 13:31 Last Infusion: 11/14/21 13:47 Dose: 0 mls/hr Documented by: [id number] Admin: 11/14/21 12:46 Dose: 999 mls/hr Documented by: [id number] Multivitamins 10 ml/ Thiamine HCl 100 mg/ Folic Acid 1 mg/Sodium Chloride 1 ,011.2 mls @ 1,011.2 mls/hr IV .Q1H ONE Stop: 11/14/21 13:30 Last Infusion: 11/14/21 14:31 Dose: 0 mls/hr Documented by: [id number] Admin: 11/14/21 13:24 Dose: 1,011.2 mls/hr Documented by: [id number] Lorazepam (Lorazepam 2 Mg/1 Ml Vial) 1 mg IV NOW STA; Protocol Stop: 11/14/21 14:33 Last Admin: 11/14/21 14:43 Dose: 1 mg Documented by: [id number] Lorazepam (Lorazepam 1 Mg Tab) 1 mg PO ONE PRN; Protocol PRN Reason: EtoH Withdrawal AWSS 6-10 Last Admin: 11/15/21 02:54 Dose: 1 mg Documented by: [id number] Imaging Data Radiologist's Impression: Chest X-Ray 11/14/21 12:30 XR chest 1V portable CLINICAL HISTORY: SEPSIS. Left chest wall discomfort COMPARISON STUDY: 11/19/2020 TECHNIQUE: 1 view of the chest FINDINGS: Single frontal view of the chest demonstrates the cardiomediastinal silhouette to be within normal limits. There is a decreased inspiratory effort with elevation of the hemidiaphragms and crowding of the bronchovascular markings at the lung bases and centrally. The lungs are clear of alveolar opacities. There is no evidence for pleural effusion. There is no evidence for vascular congestion. There is no acute osseous pathology. IMPRESSION: 1. There is a decreased inspiratory effort with otherwise no acute chest disease. ACT 112: Negative or not required by law. Electronically signed by: Bienvenido Syed M.D. 11/14/2021 1:14 PM Discharge Plan Visit Data Chief Complaint: Illness Stated Complaint: ABDOMINAL PAIN,CHEST PAIN ED Provider: Santhosh Wolf Discharge Problem: Tachycardia, Anemia, Alcohol use, Acute dehydration Patient Disposition: Admitted As Inpatient Discharge Instructions Interventions: ED Discharge Assessment Last Done: 11/14/21 18:21
[2021-11-14] MEDS ORDERED: SODIUM CHLORIDE 0.9% 1000ML 1,000 ML IV ONE (12:31)
[2021-11-14] MEDS ORDERED: MULTI-VITAMIN INFUSION 10 ML, THIAMINE HCL 100 MG, FOLIC ACID 1 MG in SODIUM CHLORIDE 0... IV ONE (12:31)
[2021-11-14 12:44] LABS: Basophils # (auto) 0.01 K/uL (0-0.2); Basophils % (auto) 0.1 %; Eosinophils # (auto) 0.01 K/uL (0-0.5); Eosinophils % (auto) 0.1 %; Hemoglobin 14.2 g/dL (12.0-16.0); Immature Granulocytes # (auto) 0.02 K/uL (0.00-0.02); Immature Granulocytes % (auto) 0.2 %; Lymphocytes # (auto) 0.96 K/uL (1.2-3.4); Lymphocytes % (auto) 10.3 %; Mean Corpuscular Hemoglobin 31.4 pg (25-34); Mean Corpuscular Hgb Conc 33.8 g/dL (32-36); Mean Corpuscular Volume 92.9 fL (80-100); Mean Platelet Volume 9.4 fL (7.4-10.4); Monocytes # (auto) 0.81 K/uL (0.11-0.59); Monocytes % (auto) 8.7 %; Neutrophils # (auto) 7.48 K/uL (1.4-6.5); Neutrophils % (auto) 80.6 %; Platelet Count 145 K/uL (130-400); RDW Coefficient of Variation 12.6 % (11.5-14.5); RDW Standard Deviation 42.7 fL (36.4-46.3); Red Blood Count 4.52 M/uL (4.2-5.4); White Blood Count 9.29 K/uL (4.8-10.8)
[2021-11-14 13:01] LABS: INR 0.9 (0.9-1.1); Partial Thromboplastin Ratio 0.9; Partial Thromboplastin Time 24.2 Seconds (21.0-31.0)
[2021-11-14 13:13] LABS: Albumin Globulin Ratio 1.4 (0.9-2); Albumin Level 4.5 gm/dl (3.4-5.0); BUN Creatinine Ratio 17.6 (10-20); Bilirubin,Total 0.4 mg/dl (0.2-1.0); Creatinine Clr Calc Pharmacy 95.9 ml/min; Est GFR (African American) 119.4 ml/min; Est GFR (Non-African American) 103.1 ml/min; Globulin 3.3 gm/dl (2.5-4.0); Magnesium 1.9 mg/dl (1.7-2.4); Potassium 4.1 mmol/L (3.5-5.1); Total Protein 7.8 gm/dl (6.0-8.3)
--- NOTE | 2021-11-14 13:15 | XRay Report ---
XR chest 1V portable CLINICAL HISTORY: SEPSIS. Left chest wall discomfort COMPARISON STUDY: 11/19/2020 TECHNIQUE: 1 view of the chest FINDINGS: Single frontal view of the chest demonstrates the cardiomediastinal silhouette to be within normal li mits. There is a decreased inspiratory effort with elevation of the hemidiaphragms and crowding of th e bronchovascular markings at the lung bases and centrally. The lungs are clear of alveolar opacities . There is no evidence for pleural effusion. There is no evidence for vascular congestion. There is n o acute osseous pathology. IMPRESSION: 1. There is a decreased inspiratory effort with otherwise no acute chest disease. ACT 112: Negative or not required by law. Electronically signed by: Bienvenido Syed M.D. 11/14/2021 1:14 PM
[2021-11-14] MEDS ORDERED: LORazepam 2 MG/1 ML VIAL IV STA (14:32)
[2021-11-14] MEDS ORDERED: GABAPENTIN 800MG ALCOHOL WITHDRAWAL LOAD PO STA (14:42)
[2021-11-14] MEDS ORDERED: LORazepam 1 MG TAB PO PRN (14:42)
[2021-11-14] MEDS ORDERED: GABAPENTIN 400 MG CAP PO ONE (14:42)
--- NOTE | 2021-11-14 14:55 | History & Physical Report ---
Date of Service November 14, 2021 Assessment & Plan (1) COPD (chronic obstructive pulmonary disease): Plan: - Chronic, without evidence of acute exacerbation. Somewhat worse cough due to increased cigarette smoking the past week or so. - Continue home O2 requirement of 1.5 L NC, along with home inhalers. - Add on Mucinex 600 mg BID. (2) Chronic respiratory failure with hypoxia, on home oxygen therapy: Plan: - As above. (3) ETOH abuse: Plan: - Had been sober for several months, however slowly increased alcohol intake over the past 2 weeks, with reported consumption of 6 bottles of wine and 9 beers in the last 72 hours. EtOH 124.6 today in ED. - AWSS with scheduled gabapentin, Ativan prn. - Banana bag and IVF in ED; continue fluids, thiamine and folate supplementation while admitted. - B12 and folate levels with AM labs. - Would like to stop drinking again, has bee to rehab several times and is open to this upon d/c. - No history of DTs or hallucinations with previous detoxes. - History of hiatal hernia with multiple [place] ulcers--continue Protonix, add on Carafate. No signs or symptoms suggestive of GI bleed, will continue to monitor. Holding aspirin which she has prescribed prn for pain. (4) SVT (supraventricular tachycardia): Plan: - Initially presented with HR in 130s and appeared to be in SVT on EKG, however after a banana bag and 1L IVF bolus, appears to be in NSR. - During admission last August, she presented similarly and converted to NSR after receiving adenosine. - Will admit to PCU for now, however suspect with IVF and alcohol cessation, she may remain in NSR. (5) Chest pain: Plan: - Transient episode this AM at home upon getting out of bed, lasted 3-4 minutes and alleviated with rest. Again today in ED upon getting off commode. No hx of CAD. Low suspicion for ACS, more likely related to anxiety/palpitations or may be more epigastric in nature and due to ? gastritis or perhaps MSk in nature from coughing, dry heaving. * Troponin ordered on admission-- 4.1. No further workup necessary unless patient begins to experience chest pain again. - EKG with any chest pain. (6) Depression: Plan: - Prescribed Trintellix 15 mg, Topamax 50mg, trazodone 100 mg, and Seroquel 50 mg daily---however stopped taking these 2 weeks ago when her alcohol intake increased, did restart these 3 days ago. - Continue these. (7) Tobacco dependence: Plan: - Admit to PCU. - SCDs, Lovenox for VTE ppx. - Full Code. History of Present Illness Chief Complaint: fatigue, palpitations secondary to increased alcohol intake Primary Care Provider: Bentley Childs Jr, Lakeisha Aguirre is a 61 y/o female with a PMH of COPD chronically on 2L NC, alcohol abuse disorder, and depression who presents today for alcohol detox. Patient has an extensive history of alcohol abuse, however had been sober for several months until starting to drink again over the past few weeks. She, along with who is at bedside, reporting for 72 hours she has consumed about 6 bottles of wine and 9 beers. Along with this, she has started smoking cigarettes again and eating less due to feeling bloated from the alcohol, and over the past several days has felt fatigued, has a burning sensation in her stomach, and this morning felt her heart racing, which seems to be the event that caused her most concern and prompted her to present to the ED. Additionally, she has frequently been forgetting to take her antidepressants and PPI, esentially stopping them about 2 weeks ago, however restarted them within the past 3 days. She has noticed she is wheezing a bit more than normal and her cough is worse, which she attributes to smoking more cigarettes than usual along with her drinking. She does not have any difficulty catching her breath and denies fever/chills. She has been to rehab for her alcoholism several times, denies any seizures or hallucinations with previous detoxes. She does have a history of ulcers, has been dry heaving over the past day or so but has not had any hematemesis, dark stools, or marge red blood with bowel movements. In ED, she is tachycardic with HR 120s, SpO2 > 95% on 1.5 L NC. Labs largely unremarkable, significant for initial lactate 2.2 without leukocytosis, repeat after IVF is 1.9. EtOH 124.6 mg/dl. CXR with decreased inspiratory effort, otherwise no acute cardiopulmonary disease. Allergies Allergy/AdvReac Type Severity Reaction Status Date / Time RACIEL Inhibitors AdvReac Intermediate COUGH Verified 11/14/21 15:17 naltrexone [From Vivitrol] AdvReac Intermediate Hair Verified 11/14/21 15:17 loss/ingrown hairs over body Home Medications Medication Instructions Recorded Confirmed Type ergocalciferol (vitamin D2) 1,250 50,000 unit PO MONTHLY 11/03/19 11/14/21 History mcg (50,000 unit) capsule clonidine 0.1 mg/24 hr weekly 1 patch TOPICAL WK 11/22/19 11/14/21 History transdermal patch nebulizers (Aeroneb Go Nebulizer) #1 ea 12/09/19 06/22/21 Rx fluticasone propionate 50 1 spray INTNAS QAM PRN 02/29/20 11/14/21 History mcg/actuation nasal spray,suspension (Allergy Relief (fluticasone)) pantoprazole 40 mg tablet,delayed 40 mg PO DAILY #30 tab 03/07/20 11/14/21 Rx release trazodone 100 mg tablet 100 - 150 mg PO HS PRN 08/15/20 11/14/21 History acetaminophen 500 mg tablet 1,000 mg PO Q6H PRN 09/14/20 11/14/21 History (Tylenol Extra Strength) aspirin 325 mg tablet 650 mg PO BID PRN 09/14/20 11/14/21 History acetylcysteine 200 mg/mL (20 %) 3 ml INH Q8 PRN #200 ml 09/27/20 11/14/21 Rx solution levocetirizine 5 mg tablet 5 mg PO DAILY PRN #90 tab 11/28/20 11/14/21 Rx albuterol sulfate 90 mcg/actuation 2 puff INH Q6H PRN #18 gm 06/22/21 11/14/21 Rx aerosol inhaler ipratropium 0.5 mg-albuterol 3 mg 3 ml INH Q8H PRN #360 ml 06/22/21 11/14/21 Rx (2.5 mg base)/3 mL nebulization soln umeclidinium 62.5 mcg-vilanterol 1 inh INH QAM #60 ea 06/22/21 11/14/21 Rx 25 mcg/actuation powdr for inhalation (Anoro Ellipta) quetiapine 50 mg tablet 50 mg PO HS 11/14/21 11/14/21 History topiramate 25 mg tablet 50 mg PO HS 11/14/21 11/14/21 History vortioxetine 10 mg tablet 10 mg PO DAILY 11/14/21 11/14/21 History (Trintellix) vortioxetine 5 mg tablet 5 mg PO DAILY 11/14/21 11/14/21 History (Trintellix) Past Med/Surg History Medical History (Updated 11/15/21 @ 07:06 by Campos Ruiz) Alcoholic hepatitis Anemia Anxiety reason for depakote Ascites Asthma Atelectasis of left lung COPD (chronic obstructive pulmonary disease) inhaler daily/prn Depression Emphysema of lung Hiatal hernia Jaundice Leukocytosis (04/21/14) On home oxygen therapy 1-2L N/C prn Sepsis due to Streptococcus pneumoniae hx of Sleep apnea cpap with 2 L oxygen at hs Tachycardia (08/17/13) Surgical History History of bronchoscopy History of colonoscopy History of ovarian cystectomy History of tooth extraction S/P removal of ovarian cyst Family History (Updated 11/14/21 @ 16:15 by Maryjo Ramirez PA-C) Father Myocardial infarction Hypertension Other No family history of adverse response to anesthesia Social History Smoking Status: Current every day smoker Tobacco Type: Cigarettes Cigarettes Per Day: 20; Second Hand Exposure: Yes; Tobacco Cessation Education Requested by Patient: No Hx Alcohol Use: Yes Alcohol type: beer, wine and hard liquor Alcohol Intake Frequency Comment: 500 ml a day Hx Substance Use: No Preferred Language: Turkmen Communication Ability: Effective Manager Quantitative Required: No Beliefs That Will Affect Care: None marital status: Current Living Situation: Spouse How many Children do You have: 3 Other Information That Helps Us Care for You: No Feels Safe at Home: Yes Safety Concerns: Feels Safe At This Time Assistive Devices: Denture - Upper, Glasses and Oxygen - Continuous Assistive Devices Comment: 2L Review of Systems Review of Systems: Constitutional: reports fatigue; No fever/chills, weakness, myalgias, anorexia, night sweats Eyes: No diplopia, no worsening or blurred vision ENT: normal hearing, no trouble swallowing Respiratory: chronic cough with sputum production has been more frequent; no acute worsening of chronic SOB or JARVIS Cardiovascular: left chest wall discomfort this AM for 3-4 minutes upon getting out of bed, also reports palpitations; no tightness Abdomen: burning epigastric pain and dry heaving without nausea, vomiting, diarrhea or constipation : Denies dysuria, hematuria, increased urgency/frequency, urinary retention Musculoskeletal: No joint pain, calf pain, swelling Neurologic: No weakness, numbness/tingling, or balance problems Psychiatric: No anxiety or depression Skin: No rash or itch Physical Exam Physical Exam: General: awake, alert, no apparent distress, on 1.5 L NC Head: Normocephalic, atraumatic ENT: PERRL, EOMI, no pharyngeal exudate, mucous membranes moist Chest: scattered wheezes appreciated, without crackles or other adventitious breath sounds Cardiac: tachycardic, regular rhythm, no murmur, no JVD, normal peripheral pulses, good capillary refill Abdominal: NABS x 4 quadrants, soft, nontender to palpation, no rebound, guarding or tenderness Extremities: Normal inspection, no peripheral edema or erythema, calfs nontender to palpation Psych: Normal mood and affect Neuro: AAO x 3, strength intact bilaterally and rated 5/5, no motor deficits, speech is slow and slightly slurred consistent with EtOH intoxication; no peripheral sensory deficits Skin: no rash or erythema Results & Data Results & Data ([facility]) Vital Signs (Past 12 Hours) Vital Signs Temp Pulse Pulse Resp BP BP Pulse Ox 11/14/21 14:30 107 H 17 125/85 95 11/14/21 14:00 123 H 17 116/96 95 11/14/21 13:30 108 H 19 131/86 94 11/14/21 13:15 117 H 18 119/88 94 11/14/21 13:00 122 H 16 138/83 100 11/14/21 12:45 127 H 14 119/86 94 11/14/21 12:30 114 H 14 93/66 L 93 11/14/21 12:08 36.3 C L 132 H 24 82/51 L 95 Laboratory Results Abnormal lab results 11/14/21 11/14/21 11/14/21 Range/Units 12:25 12:25 12:25 Neut # (Auto) 7.48 H (1.4-6.5) K/uL Lymph # (Auto) 0.96 L (1.2-3.4) K/uL [place] # (Auto) 0.81 H (0.11-0.59) K/uL Anion Gap 13 H (3-11) Creatinine 0.51 L (0.6-1.2) mg/dl Glucose 117 H (70-99(Fasting)) mg/dl Lactate 2.2 H* (0.4-2.0) mmol/L Alkaline Phosphatase 116 H (34-104) U/L Ethyl Alcohol mg/dL (<10.0) mg/dl 11/14/21 Range/Units 12:25 Neut # (Auto) (1.4-6.5) K/uL Lymph # (Auto) (1.2-3.4) K/uL [place] # (Auto) (0.11-0.59) K/uL Anion Gap (3-11) Creatinine (0.6-1.2) mg/dl Glucose (70-99(Fasting)) mg/dl Lactate (0.4-2.0) mmol/L Alkaline Phosphatase (34-104) U/L Ethyl Alcohol mg/dL 124.6 H (<10.0) mg/dl Diagnostic Findings Chest X-Ray 11/14/21 12:30 XR chest 1V portable CLINICAL HISTORY: SEPSIS. Left chest wall discomfort COMPARISON STUDY: 11/19/2020 TECHNIQUE: 1 view of the chest FINDINGS: Single frontal view of the chest demonstrates the cardiomediastinal silhouette to be within normal limits. There is a decreased inspiratory effort with elevation of the hemidiaphragms and crowding of the bronchovascular markings at the lung bases and centrally. The lungs are clear of alveolar opacities. There is no evidence for pleural effusion. There is no evidence for vascular congestion. There is no acute osseous pathology. IMPRESSION: 1. There is a decreased inspiratory effort with otherwise no acute chest disease. ACT 112: Negative or not required by law. Electronically signed by: Bienvenido Syed M.D. 11/14/2021 1:14 PM ECG Additional Comments: Accelerated Junctional rhythm After IVF, upon my visit patient appears to be in NSR with HR in 100s. Code Status & VTE Plan Code Status Full code. Supervising Physician Co-Signing Physician Notes Attending Attestation & Admission Note: Pt seen/examined, chart reviewed, care plan d/w ETHAN Ramirez. I agree w/ the lombardo components of her documentation. 61yo female with COPD, chronic hypoxic resp failure on home O2 due to COPD, ongoing tobacco usage, and alcoholism presenting with recent alcohol binging, palpitations, and stomach pain/upset. Upon presentation today she had an elevated etoh level, appeared to be in SVT on EKG/telemetry, and c/o upper abdominal pain. She does wish to get help for her etoh abuse. During my bedside assessment it appeared she had converted back from SVT to sinus tach. was at bedside. In addition she has had worsening cough/congestion/wheezing over the last few days - symptoms are above baseline. PMH/PSH/allergies/meds/sochx/famhx - reviewed vitals - tachy, afebrile, O2 sats mid-high 90s on 2 L NC O2 gen - slurred speech, but NAD mouth - MM dry neck - no JVD heart - tachy, s1 s2 lungs - mild b/l wheezes, no rales, no increased work of breathing abd - soft ND BS+; tender epigastric region ext - no edema, pulses 2+ b/l labs reviewed imaging reviewed EKG - my reading - AVNRT (SVT) A/P: 1. etoh intoxication 2. at risk of etoh withdrawal 3. alcoholism 4. tobacco dependence 5. COPD with resulting chronic hypoxic resp failure 6. abdominal pain - likely alcoholic gastritis; cannot rule out PUD (has prior h/o [place] ulcers) 7. SVT etoh withdrawal precautions, ativan per protocol, gabapentin taper thiamine/folate/MVI nicoderm patch cont usual inhalers - is actively wheezing today, if any worsening consider short course of prednisone/narrow spectrum PO abx PPI for #6; add carafate; if refractory symptoms - GI consult #7 - appears to have converted (at least at time of my assessment) back to sinus tach; has prior h/o SVT; place on telemetry; consider low-dose BB if recurrent runs SVT; echo 08/2020 was normal Campos Ruiz MD PG Care Time/CCT Total # of Minutes Spent Total Time Spent with Patient: Total time spent is greater than 50% in coordination of care (as documented) at patient's floor/unit and/or counseling patient: Coding Level of Care Code 09748 Initial Inpt Care Lvl 3 Diagnoses Chronic respiratory failure with hypoxia, on home oxygen therapy J96.11; Z99.81 COPD (chronic obstructive pulmonary disease) J44.9 SVT (supraventricular tachycardia) I47.1 ETOH abuse F10.10 Depression F32.89 Depression Type: other depression Chest pain R07.9 Tobacco dependence F17.200 (1) Depression Depression Type: other depression Qualified Code(s): F32.89 - Other specified depressive episodes
[2021-11-14 15:17] LABS: Appearance Urine Clear (Clear); Bilirubin Urine Negative (Negative); Blood Urine Negative (Negative); Color Urine Yellow; Glucose Urine UA Negative (Negative); Ketones Urine Negative (Negative); Leukocyte Esterase Urine Negative (Negative); Nitrite Urine Negative (Negative); Protein Urine Negative (Negative); Specific Gravity Urine 1.005 (1.000-1.030); Urobilinogen Urine Negative (Negative); pH Urine 6.5 (4.5-7.5)
[2021-11-14] MEDS ORDERED: ALBUTEROL HFA 8 GM INHALER INH PRN (18:06)
[2021-11-14] MEDS ORDERED: ACETAMINOPHEN 500 MG TAB PO PRN (18:06)
[2021-11-14] MEDS ORDERED: ALBUT/IPRATROP 3MG/0.5MG NEB 3 ML VIAL INH PRN (18:06)
[2021-11-14] MEDS ORDERED: ONDANSETRON INJ 2 MG/ML 2 ML VIAL IV PRN (18:06)
[2021-11-14] MEDS ORDERED: FLUTICASONE PROPIONATE NA SPR 16 GM BTL PRN (18:06)
[2021-11-14] MEDS ORDERED: POLYETHYLENE (MIRALAX) 17 GM PACK PO PRN (18:06)
[2021-11-14] MEDS ORDERED: ERGOCALCIFEROL 50,000 UNITS 1250 MCG CAP PO SCH (18:06)
[2021-11-14] MEDS ORDERED: NON-FORMULARY MEDICATION (Levocetirizine 5 mg tablet) PO PRN (18:06)
[2021-11-14] MEDS ORDERED: traZODone HCL 100 MG TAB PO PRN (18:06)
[2021-11-14] MEDS ORDERED: ACETYLCYSTEINE 20% INHAL SOLN 30ML INH PRN (18:06)
[2021-11-14] MEDS: LACTATED RINGER'S 1,000 ML IV SCH (18:50)
[2021-11-14] MEDS: NICOTINE 14 MG/24 HR PATCH TD SCH (19:55)
[2021-11-14] MEDS: CHECK CLONIDINE PATCH PLACEMENT SCH (19:55)
[2021-11-14] MEDS: FOLIC ACID 1 MG TAB PO SCH (19:55)
[2021-11-14] MEDS: ENOXAPARIN INJ 40 MG/0.4 ML SYR SQ SCH (19:56)
[2021-11-14] MEDS: SUCRALFATE 1 GM/10 ML UDC PO SCH ×2 (19:56→22:30)
[2021-11-14] MEDS: THIAMINE HCL 100 MG TAB PO SCH (19:56)
[2021-11-14] MEDS: GABAPENTIN 400 MG CAP PO SCH (19:57)
[2021-11-14] MEDS: guaiFENesin 600 MG TABCR PO SCH (19:57)
[2021-11-14] MEDS: QUEtiapine FUMARATE 25 MG TABLET PO SCH (19:58)
[2021-11-14] MEDS: TOPIRAMATE 50 MG TAB PO SCH (19:58)
[2021-11-15] MEDS: CHECK CLONIDINE PATCH PLACEMENT SCH ×3 (00:51→16:44)
[2021-11-15] MEDS: LACTATED RINGER'S 1,000 ML IV SCH ×3 (02:44→20:47)
[2021-11-15] MEDS: GABAPENTIN 400 MG CAP PO SCH ×3 (02:45→18:53)
[2021-11-15 06:25] LABS: Basophils # (auto) 0.01 K/uL (0-0.2); Basophils % (auto) 0.1 %; Eosinophils # (auto) 0.01 K/uL (0-0.5); Eosinophils % (auto) 0.1 %; Hematocrit (blood only) 32.4 % (37-47); Hemoglobin 10.6 g/dL (12.0-16.0); Immature Granulocytes # (auto) 0.01 K/uL (0.00-0.02); Immature Granulocytes % (auto) 0.1 %; Lymphocytes # (auto) 1.53 K/uL (1.2-3.4); Lymphocytes % (auto) 21.3 %; Mean Corpuscular Hemoglobin 31.5 pg (25-34); Mean Corpuscular Hgb Conc 32.7 g/dL (32-36); Mean Corpuscular Volume 96.1 fL (80-100); Mean Platelet Volume 9.5 fL (7.4-10.4); Monocytes # (auto) 0.63 K/uL (0.11-0.59); Monocytes % (auto) 8.8 %; Neutrophils % (auto) 69.6 %; Platelet Count 110 K/uL (130-400); RDW Coefficient of Variation 13.1 % (11.5-14.5); RDW Standard Deviation 45.6 fL (36.4-46.3); Red Blood Count 3.37 M/uL (4.2-5.4); White Blood Count 7.19 K/uL (4.8-10.8)
[2021-11-15 06:28] LABS: Prothrombin Time 10.3 Seconds (9.0-12.0)
[2021-11-15 06:59] LABS: Albumin Globulin Ratio 1.4 (0.9-2); Albumin Level 3.2 gm/dl (3.4-5.0); BUN Creatinine Ratio 21.2 (10-20); Bilirubin,Total 0.6 mg/dl (0.2-1.0); Calcium 8.2 mg/dl (8.5-10.1); Creatinine Clr Calc Pharmacy 94.7 ml/min; Est GFR (African American) 118.7 ml/min; Est GFR (Non-African American) 102.4 ml/min; Globulin 2.3 gm/dl (2.5-4.0); Magnesium 1.8 mg/dl (1.7-2.4); Potassium 3.9 mmol/L (3.5-5.1); Total Protein 5.5 gm/dl (6.0-8.3)
[2021-11-15 07:05] LABS: Folate (Folic Acid) > 22.30 ng/ml (>5.38)
[2021-11-15 07:06] LABS: Vitamin B12 283 pg/ml (180-914)
[2021-11-15] MEDS: THIAMINE HCL 100 MG TAB PO SCH (08:40)
[2021-11-15] MEDS: SUCRALFATE 1 GM/10 ML UDC PO SCH ×4 (08:41→20:48)
[2021-11-15] MEDS: guaiFENesin 600 MG TABCR PO SCH ×2 (08:41→20:48)
[2021-11-15] MEDS: FOLIC ACID 1 MG TAB PO SCH (08:41)
[2021-11-15] MEDS: PANTOprazole 40 MG TAB PO SCH (08:41)
[2021-11-15] MEDS: UMECLIDINIUM/VILANTEROL 62.5/25MCG 7 PUFFS/INHALER INH SCH (08:43)
[2021-11-15] MEDS: NICOTINE 14 MG/24 HR PATCH TD SCH (08:45)
[2021-11-15] MEDS ORDERED: ATIVAN IV ALCOHOL WITHDRAWL IV PRN (09:21)
[2021-11-15] MEDS ORDERED: LORazepam 3 MG in SYRINGE 1.5 ML IV PRN (09:21)
[2021-11-15] MEDS ORDERED: LORazepam 2 MG in SYRINGE 1 ML IV PRN (09:21)
[2021-11-15] MEDS: VORTIOXETINE HYDROBROMIDE 5 MG PO SCH (12:28)
[2021-11-15] MEDS: VORTIOXETINE HYDROBROMIDE 10 MG PO SCH (12:28)
[2021-11-15] MEDS: LORazepam 1 MG in SYRINGE 0.5 ML IV PRN ×2 (14:32→22:18)
--- NOTE | 2021-11-15 17:31 | Hospitalist Progress Note ---
Date of Service November 15, 2021 Assessment & Plan (1) COPD (chronic obstructive pulmonary disease): Plan: - Chronic, without evidence of acute exacerbation. Somewhat worse cough due to increased cigarette smoking the past week or so. - Continue home O2 requirement of 1.5 L NC, along with home inhalers. - Add on Mucinex 600 mg BID. -breath sounds appear to be improved. will continue to monitor. (2) Chronic respiratory failure with hypoxia, on home oxygen therapy: Plan: - As above. (3) ETOH abuse: Plan: - Had been sober for several months, however slowly increased alcohol intake over the past 2 weeks, with reported consumption of 6 bottles of wine and 9 beers in the last 72 hours. EtOH 124.6 today in ED. - AWSS with scheduled gabapentin, - Banana bag and IVF in ED; continue fluids, thiamine and folate supplementation while admitted. - B12 and folate levels with AM labs. - Would like to stop drinking again, has bee to rehab several times and is open to this upon d/c. - No history of DTs or hallucinations with previous detoxes. - History of hiatal hernia with multiple [place] ulcers--continue Protonix, add on Carafate. No signs or symptoms suggestive of GI bleed, will continue to monitor. Holding aspirin which she has prescribed prn for pain. Added Ativan AWSS on 11/15 as patient was having tremors Patient appears more comfortable. Possible discharge WITHIN NEXT 24-48 HOURS. (4) SVT (supraventricular tachycardia): Plan: - Initially presented with HR in 130s and appeared to be in SVT on EKG, however after a banana bag and 1L IVF bolus, appears to be in NSR. - During admission last August, she presented similarly and converted to NSR after receiving adenosine. - Will admit to PCU for now, however suspect with IVF and alcohol cessation, she may remain in NSR. -On sinus on 11/15/21 (5) Chest pain: Plan: - Transient episode this AM at home upon getting out of bed, lasted 3-4 minutes and alleviated with rest. Again today in ED upon getting off commode. No hx of CAD. Low suspicion for ACS, more likely related to anxiety/palpitations or may be more epigastric in nature and due to ? gastritis or perhaps MSk in nature from coughing, dry heaving. * Troponin ordered on admission-- 4.1. No further workup necessary unless patient begins to experience chest pain again. - EKG with any chest pain. (6) Depression: Plan: - Prescribed Trintellix 15 mg, Topamax 50mg, trazodone 100 mg, and Seroquel 50 mg daily---however stopped taking these 2 weeks ago when her alcohol intake incr eased, did restart these 3 days ago. - Continue these. (7) Tobacco dependence: Plan: - Admit to PCU. - SCDs, Lovenox for VTE ppx. - Full Code. Admission and Anticipated Discharge Date Admission Date: November 14, 2021 Subjective Patient reports feeling much better after ativan AWSS was started. Patient states only her legs are having the shakes, but she reports it is mild. Review of Systems Review of Systems: All systems reviewed & are unremarkable except as noted in HPI & below Physical Exam Physical Exam: General: awake, alert, no apparent distress, on 2 L NC Head: Normocephalic, atraumatic ENT: PERRL, EOMI, no pharyngeal exudate, mucous membranes moist Chest: decreased breath sounds, without crackles or other adventitious breath sounds Cardiac: Regular rate, regular rhythm, no murmur, no JVD, normal peripheral pulses, good capillary refill Abdominal: NABS x 4 quadrants, soft, nontender to palpation, no rebound, guarding or tenderness Extremities: Normal inspection, no peripheral edema or erythema, calfs nontender to palpation Psych: Normal mood and affect Neuro: AAO x 3, strength intact bilaterally and rated 5/5, no motor deficits, speech is clear; no peripheral sensory deficits Skin: no rash or erythema Results & Data Results & Data ([facility]) Vital Signs (Past 12 Hours) Vital Signs Temp Pulse Pulse Resp BP Pulse Ox 11/15/21 15:44 36.8 C 73 18 121/70 95 11/15/21 15:00 74 11/15/21 11:48 36.6 C 90 18 115/63 93 11/15/21 08:00 37 C 73 82 20 107/72 95 PG Care Time/CCT Total # of Minutes Spent Total Time Spent with Patient: Total time spent is greater than 50% in coordination of care (as documented) at patient's floor/unit and/or counseling patient: Coding Level of Care Code 73555 Subseq Hosp Care Lvl 3 Diagnoses COPD (chronic obstructive pulmonary disease) J44.9 Chronic respiratory failure with hypoxia, on home oxygen therapy J96.11; Z99.81 ETOH abuse F10.10 SVT (supraventricular tachycardia) I47.1 Chest pain R07.9 Depression F32.89 Depression Type: other depression Tobacco dependence F17.200 (1) Depression Depression Type: other depression Qualified Code(s): F32.89 - Other specified depressive episodes
[2021-11-15] MEDS: ENOXAPARIN INJ 40 MG/0.4 ML SYR SQ SCH (18:53)
[2021-11-15] MEDS: TOPIRAMATE 50 MG TAB PO SCH (20:48)
[2021-11-15] MEDS: QUEtiapine FUMARATE 25 MG TABLET PO SCH (20:48)
--- NOTE | 2021-11-15 21:31 | Electrocardiogram Report ---
Test Reason : Blood Pressure : / mmHG Vent. Rate : 124 BPM Atrial Rate : 081 BPM P-R Int : 000 ms QRS Dur : 068 ms QT Int : 294 ms P-R-T Axes : 000 095 041 degrees QTc Int : 422 ms Supraventricular tachycardia Rightward axis Abnormal ECG When compared with ECG of 19-NOV-2020 14:13, Supraventricular tachycardia has replaced Sinus rhythm Confirmed by Maicol Najera ([id number]) on 11/15/2021 9:31:50 PM Referred By: ED Confirmed By:Maicol Najera
[2021-11-16] MEDS: CHECK CLONIDINE PATCH PLACEMENT SCH ×2 (00:10→11:05)
[2021-11-16] MEDS: GABAPENTIN 400 MG CAP PO SCH (03:24)
[2021-11-16] MEDS: LACTATED RINGER'S 1,000 ML IV SCH (04:48)
[2021-11-16] MEDS: guaiFENesin 600 MG TABCR PO SCH (09:20)
[2021-11-16] MEDS: THIAMINE HCL 100 MG TAB PO SCH (09:20)
[2021-11-16] MEDS: PANTOprazole 40 MG TAB PO SCH (09:20)
[2021-11-16] MEDS: FOLIC ACID 1 MG TAB PO SCH (09:20)
[2021-11-16] MEDS: UMECLIDINIUM/VILANTEROL 62.5/25MCG 7 PUFFS/INHALER INH SCH (09:21)
[2021-11-16] MEDS: SUCRALFATE 1 GM/10 ML UDC PO SCH (09:21)
[2021-11-16] MEDS: NICOTINE 14 MG/24 HR PATCH TD SCH (09:21)
[2021-11-16] MEDS: VORTIOXETINE HYDROBROMIDE 5 MG PO SCH (09:22)
[2021-11-16] MEDS: VORTIOXETINE HYDROBROMIDE 10 MG PO SCH (09:22)
[2021-11-16 09:30] LABS: Hematocrit (blood only) 35.1 % (34.1-44.9); Hemoglobin 11.5 g/dl (12.0-16.0); Mean Corpuscular Hgb Conc 32.8 g/dL (32.0-36.0); Mean Corpuscular Volume 97.8 fL (80.0-100.0); Mean Platelet Volume 9.2 fL (9.4-12.3); Platelet Count 109 K/uL (130-400); RDW Coefficient of Variation 12.3 % (11.5-14.5); RDW Standard Deviation 44.6 fL (36.4-46.3); Red Blood Count 3.59 M/uL (3.93-5.22); White Blood Count 3.33 K/ul (4.8-10.8)
[2021-11-16] MEDS ORDERED: GABAPENTIN 400 MG CAP PO SCH (14:45)
--- NOTE | 2021-11-16 15:28 | Discharge Summary ---
Date of Service November 16, 2021 Admission HPI Per Admitting Provider Lakeisha Aguirre is a 61 y/o female with a PMH of COPD chronically on 2L NC, alcohol abuse disorder, and depression who presents today for alcohol detox. Patient has an extensive history of alcohol abuse, however had been sober for several months until starting to drink again over the past few weeks. She, along with who is at bedside, reporting for 72 hours she has consumed about 6 bottles of wine and 9 beers. Along with this, she has started smoking cigarettes again and eating less due to feeling bloated from the alcohol, and over the past several days has felt fatigued, has a burning sensation in her st omach, and this morning felt her heart racing, which seems to be the event that caused her most concern and prompted her to present to the ED. Additionally, she has frequently been forgetting to take her antidepressants and PPI, esentially stopping them about 2 weeks ago, however restarted them within the past 3 days. She has noticed she is wheezing a bit more than normal and her cough is worse, which she attributes to smoking more cigarettes than usual along with her drinking. She does not have any difficulty catching her breath and denies fever/chills. She has been to rehab for her alcoholism several times, denies any seizures or hallucinations with previous detoxes. She does have a history of ulcers, has been dry heaving over the past day or so but has not had any hematemesis, dark stools, or marge red blood with bowel movements. In ED, she is tachycardic with HR 120s, SpO2 > 95% on 1.5 L NC. Labs largely unremarkable, significant for initial lactate 2.2 without leukocytosis, repeat after IVF is 1.9. EtOH 124.6 mg/dl. CXR with decreased inspiratory effort, otherwise no acute cardiopulmonary disease. Principal Diagnosis Alcohol withdrawal Discharge Exam Constitutional WD/WN, vitals as above Eyes EOM intact bilaterally; no conjunctival abnormality ENMT external ear and nose normal, oropharynx normal Neck trachea midline, no thyromegaly normal visual inspection Respiratory normal respiratory effort, lungs clear to auscultation no respiratory distress Cardiovascular RRR, no murmur, no edema Gastrointestinal (Abdomen) Inspection/Auscultation: abdomen normal to inspection; abdomen not distended Musculoskeletal no cyanosis or clubbing, extremities motor strength 5/5 Skin no rashes, warm and dry Neurologic moves all extremities and awake Psychiatric Orientation: alert, oriented to person and cooperative Discharge Data Allergies Allergy/AdvReac Type Severity Reaction Status Date / Time RACIEL Inhibitors AdvReac Intermediate COUGH Verified 11/14/21 15:17 naltrexone [From Vivitrol] AdvReac Intermediate Hair Verified 11/14/21 15:17 loss/ingrown hairs over body Consultations 11/14/21 15:58 ED Decision to Admit Stat Hospital Course (1) COPD (chronic obstructive pulmonary disease): - Chronic, without evidence of acute exacerbation. Somewhat worse cough due to increased cigarette smoking the past week or so. - Continue home O2 requirement of 1.5 L NC, along with home inhalers. - Add on Mucinex 600 mg BID. - Breath sounds appear to be improved. will continue to monitor. (2) Chronic respiratory failure with hypoxia, on home oxygen therapy: - As above. (3) ETOH abuse: - Had been sober for several months, however slowly increased alcohol intake over the past 2 weeks, with reported consumption of 6 bottles of wine and 9 beers in the last 72 hours. EtOH 124.6 today in ED. - AWSS with scheduled gabapentin, - Banana bag and IVF in ED; continue fluids, thiamine and folate supplementation while admitted. - B12 and folate levels with AM labs. - Would like to stop drinking again, has bee to rehab several times and is open to this upon d/c. - No history of DTs or hallucinations with previous detoxes. - History of hiatal hernia with multiple [place] ulcers--continue Protonix, add on Carafate. No signs or symptoms suggestive of GI bleed, will continue to monitor. Holding aspirin which she has prescribed prn for pain. Added Ativan AWSS on 11/15 as patient was having tremors - No signs of withdrawal on the day of discharge. (4) SVT (supraventricular tachycardia): - Initially presented with HR in 130s and appeared to be in SVT on EKG, however after a banana bag and 1L IVF bolus, appears to be in NSR. - During admission last August, she presented similarly and converted to NSR after receiving adenosine. - Will admit to PCU for now, however suspect with IVF and alcohol cessation, she may remain in NSR. -On sinus on 11/15/21 (5) Chest pain: - Transient episode this AM at home upon getting out of bed, lasted 3-4 m inutes and alleviated with rest. Again today in ED upon getting off commode. No hx of CAD. Low suspicion for ACS, more likely related to anxiety/palpitations or may be more epigastric in nature and due to ? gastritis or perhaps MSk in nature from coughing, dry heaving. * Troponin ordered on admission-- 4.1. No further workup necessary unless patient begins to experience chest pain again. - EKG with any chest pain. (6) Depression: - Prescribed Trintellix 15 mg, Topamax 50mg, trazodone 100 mg, and Seroquel 50 mg daily---however stopped taking these 2 weeks ago when her alcohol intake increased, did restart these 3 days ago. - Continue these. (7) Tobacco dependence: - Admit to PCU. - SCDs, Lovenox for VTE ppx. - Full Code. Total Time Total Time Spent Total Time Spent (In Minutes): 35 Discharge Plan Discharge Items Patient Disposition: Home - Self-Care Reason For Visit: ALCOHOL WITHDRAWL Discharge Diagnosis: Alcohol withdrawal Activity: Resume your previous activity Non-emergency contact: Primary Care Provider Call non-emergency contact if: your symptoms worsen Follow-up/Referrals: Bentley Childs Jr, [Primary Care Provider] - Diet: Regular Addtl Attending Provider Instructions: Ms. Aguirre, You were admitted to the hospital with alcohol withdrawal symptoms. You had done quite well staying abstinent, but had a relapse for the last few weeks. Luckily, your withdrawal has been fairly mild, and you only needed a bit of medication to help. Otherwise, your health issues have largely stayed stable for us. Your COPD is chronic, and you are on your home O2. Please follow up with your normal pulmonary visit. You reported you have nicotine patches at home, so please continue your efforts to stop smoking. Pending Studies at Discharge: No [facility]Alone [facility] Medications and DC Order Prescriptions: New cyanocobalamin (vitamin B-12) 1,000 mcg capsule 1,000 mcg PO DAILY Qty: 30 RF: 0 thiamine HCl (vitamin B1) 100 mg tablet 100 mg PO DAILY Qty: 30 RF: 0 Continued acetylcysteine 200 mg/mL (20 %) solution 3 ml INH Q8 PRN (Reason: congestion) Qty: 200 RF: 2 albuterol sulfate 90 mcg/actuation HFA aerosol inhaler 2 puff INH Q6H PRN (Reason: Shortness Of Breath Or Wheezing) Qty: 18 RF: 3 Anoro Ellipta 62.5-25 mcg/actuation blister with device 1 inh INH QAM Qty: 60 RF: 11 ipratropium-albuterol 0.5 mg-3 mg(2.5 mg base)/3 mL solution for nebulization 3 ml INH Q8H PRN (Reason: shortness of breath or wheezing) Qty: 360 RF: 5 (DME) Aeroneb Go Nebulizer Misc See Rx Instructions .ROUTE .MEDSUPPLY Qty: 1 RF: 0 levocetirizine 5 mg tablet 5 mg PO DAILY PRN (Reason: allergy symptoms) Qty: 90 RF: 1 ergocalciferol (vitamin D2) 1,250 mcg (50,000 unit) capsule 50,000 unit PO MONTHLY RF: 0 clonidine 0.1 mg/24 hr patch weekly 1 patch topical WK RF: 0 fluticasone propionate [Allergy Relief (fluticasone)] 50 mcg/actuation spray,suspension 1 spray INTNAS QAM PRN (Reason: allergies) RF: 0 pantoprazole 40 mg tablet,delayed release (DR/EC) 40 mg PO DAILY Qty: 30 RF: 11 topiramate 25 mg tablet 50 mg PO HS RF: 0 quetiapine 50 mg tablet 50 mg PO HS RF: 0 Trintellix 5 mg tablet 5 mg PO DAILY RF: 0 Trintellix 10 mg tablet 10 mg PO DAILY RF: 0 trazodone 100 mg tablet 100 - 150 mg PO HS PRN (Reason: Sleep) RF: 0 acetaminophen [Tylenol Extra Strength] 500 mg Tablet 1,000 mg PO Q6H PRN (Reason: Pain) RF: 0 Discontinued aspirin 325 mg Tablet 650 mg PO BID PRN (Reason: Pain) RF: 0 Discharge Orders: Discharge Order (Routine); Ordered 11/16/21 Ordered By: Leonel Urias Admission Data Admit Date/Time: 11/14/21 16:04 Attending Provider: Leonel Urias Admit Provider: Campos Ruiz Primary Care Provider: Bentley Childs Jr Other Providers: Leonel Urias Other Interventions: Discharge Summary Assessment (RN) Last Done: 11/16/21 11:09 Coding Level of Care Code D/C DAY MANAGEMENT >30 MINS Diagnoses COPD (chronic obstructive pulmonary disease) J44.9 Chronic respiratory failure with hypoxia, on home oxygen therapy J96.11; Z99.81 ETOH abuse F10.10 SVT (supraventricular tachycardia) I47.1 Chest pain R07.9 Depression F32.89 Depression Type: other depression Tobacco dependence F17.200
[2021-11-18] MEDS ORDERED: GABAPENTIN 400 MG CAP PO SCH (02:45)
[2021-11-20] MEDS ORDERED: cloNIDine HCL 0.1 MG/24 HR TRANSDERM SYS TD SCH (09:00)
== END 2021-11-16 13:06 | disposition home or self-care (01) | DRG 897 ==
LOC: ED 11:55 → 2E 16:04 → SUATTDRO 16:04 → 2E 18:21

== ENCOUNTER 2022-06-10 20:43 | Inpatient (IN) ==
[2022-06-10] MEDS ORDERED: MULTI-VITAMIN INFUSION 10 ML, THIAMINE HCL 100 MG, FOLIC ACID 1 MG in SODIUM CHLORIDE 0... IV ONE (20:59)
--- NOTE | 2022-06-10 21:05 | Emergency Department Note ---
Impression & Plan Weakness, Acute alcoholism ED Provider Note INFORMANT: Patient ED PROVIDER(S): Bright Augustine DO CHIEF COMPLAINT: Weakness, alcoholism, COPD PLAN: Disposition: Admission Condition: Good Outpatient prescription management: none Referral: I spoke with the hospitalist, who will see the patient for admission/observation and further evaluation and consultation. MEDICAL DECISION MAKING: This is a 62-year-old female who presents to the ED with a chief complaint of not feeling well. She states that she is an alcoholic. She drinks about 2-3 bottles of wine daily. She reports poor appetite and not eating well. She states that she has a history of COPD and feels little short of breath. She states that she has been congested slightly recently. She complains of g eneralized weakness. She states that she would like to detox. No vomiting. No abdominal pains. No fevers. Vital signs are normal. Last alcoholic beverage was just prior to coming into the ED. Exam was unremarkable. Small ketones on the breath. The patient's EKG shows normal sinus rhythm. CBC did not show any leukocytosis or anemia. The platelet count is low likely related to her chronic alcoholism. Alcohol level was 167. Chemistry panel did not show electrolyte abnormality, transaminitis or kidney dysfunction. A COVID test was negative. Chest x-ray did not show pneumonia or pneumothorax. A VBG shows a normal acid- base status. The patient was told the results. She will be seen by the hospitalist for further evaluation and care for her symptoms. She was treated with a banana bag IV. Triage Nursing notes reviewed. Vital Signs: reviewed Prior /Outside records reviewed: none Differential diagnosis: Differential includes alcohol intoxication, malnutrition, electrolyte abnormality, dehydration, liver injury, other. Diagnostics, as interpreted by me: 12 lead ECG: Normal sinus rhythm at a rate of 87. No ST elevation. No PVCs. Normal QTC. Cardiac Monitoring: none Medical decision rules: [none] Imaging studies: Chest x-ray: No acute disease. No pneumonia or pneumothorax. Procedures: none. Critical care: none. HPI: See MDM above. PAST MEDICAL HISTORY: See Below PAST SURGICAL HISTORY: See Below SOCIAL HISTORY: See Below HOME MEDICATIONS: See Below ALLERGIES: See Below VITALS: See Below PHYSICAL EXAMINATION: CONSTITUTIONAL/VITAL SIGNS: Reviewed GENERAL: Non-toxic in appearance. INTEGUMENTARY: Warm, dry, and [place]. HEAD: Normocephalic. EYES: without scleral icterus. ENT/OROPHARYNX: clear and moist. RESPIRATORY: No increased work of breathing. Lungs clear. CARDIOVASCULAR: Regular rate. Regular rhythm. GI/ABDOMEN: Soft and nontender. . EXTREMITIES: Normal NEUROLOGICAL: Intact without focal deficits. PSYCHIATRIC: Normal affect. MUSCULOSKELETAL: Normal. TRIAGE NURSING DOCUMENTATION REVIEWED. Past Med/Surg History Medical History (Updated 06/10/22 @ 21:04 by Bright Augustine DO) Alcoholic hepatitis Anemia Anxiety reason for depakote Ascites Asthma Atelectasis of left lung COPD (chronic obstructive pulmonary disease) inhaler daily/prn Depression Emphysema of lung Hiatal hernia Jaundice Leukocytosis (04/21/14) On home oxygen therapy 1-2L N/C prn Sepsis due to Streptococcus pneumoniae hx of Sleep apnea cpap with 2 L oxygen at hs Tachycardia (08/17/13) Surgical History History of bronchoscopy History of colonoscopy History of ovarian cystectomy History of tooth extraction S/P removal of ovarian cyst Family History Father Myocardial infarction Hypertension Other No family history of adverse response to anesthesia Social History Smoking Status: Current every day smoker Tobacco Type: Cigarettes Cigarettes Per Day: 20; Second Hand Exposure: Yes; Hx Alcohol Use: Yes Alcohol type: beer, wine and hard liquor Alcohol Intake Frequency Comment: 500 ml a day Hx Substance Use: No Preferred Language: Sammarinese Communication Ability: Effective Back Tender Insulation Board Required: No Beliefs That Will Affect Care: None marital status: Current Living Situation: Spouse How many Children do You have: 3 Feels Safe at Home: Yes Assistive Devices: BiPap and Oxygen - Continuous Allergies Allergies Allergy/AdvReac Type Severity Reaction Status Date / Time RACIEL Inhibitors AdvReac Intermediate COUGH Verified 11/14/21 15:17 naltrexone [From Vivitrol] AdvReac Intermediate Hair Verified 11/14/21 15:17 loss/ingrown hairs over body Home Meds Home Medications Medication Instructions Recorded Confirmed ergocalciferol (vitamin D2) 1,250 50,000 unit PO MONTHLY 11/03/19 11/14/21 mcg (50,000 unit) capsule clonidine 0.1 mg/24 hr weekly 1 patch topical WK 11/22/19 11/14/21 transdermal patch fluticasone propionate 50 1 spray intranasal QAM PRN 02/29/20 11/14/21 mcg/actuation nasal allergies spray,suspension (Allergy Relief (fluticasone)) trazodone 100 mg tablet 100 - 150 mg PO HS PRN Sleep 08/15/20 11/14/21 acetaminophen 500 mg tablet 1,000 mg PO Q6H PRN Pain 09/14/20 11/14/21 (Tylenol Extra Strength) quetiapine 50 mg tablet 50 mg PO HS 11/14/21 11/14/21 topiramate 25 mg tablet 50 mg PO HS 11/14/21 11/14/21 vortioxetine 10 mg tablet 10 mg PO DAILY 11/14/21 11/14/21 (Trintellix) vortioxetine 5 mg tablet 5 mg PO DAILY 11/14/21 11/14/21 (Trintellix) Previous Rx's Medication Instructions Recorded nebulizers (Aeroneb Go Nebulizer) #1 ea 12/09/19 pantoprazole 40 mg tablet,delayed 40 mg PO DAILY #30 tabs 03/07/20 release acetylcysteine 200 mg/mL (20 %) 3 ml inhalation Q8 PRN congestion 09/27/20 solution #200 mL levocetirizine 5 mg tablet 5 mg PO DAILY PRN allergy symptoms 11/28/20 #90 tabs albuterol sulfate 90 mcg/actuation 2 puff inhalation Q6H PRN 06/22/21 aerosol inhaler Shortness Of Breath Or Wheezing #18 grams ipratropium 0.5 mg-albuterol 3 mg 3 ml inhalation Q8H PRN shortness 06/22/21 (2.5 mg base)/3 mL nebulization of breath or wheezing #360 mL soln umeclidinium 62.5 mcg-vilanterol 1 inh inhalation QAM #60 ea 06/22/21 25 mcg/actuation powdr for inhalation (Anoro Ellipta) cyanocobalamin (vitamin B-12) 1,000 mcg PO DAILY #30 caps 11/16/21 1,000 mcg capsule thiamine HCl (vitamin B1) 100 mg 100 mg PO DAILY #30 tabs 11/16/21 tablet Results & Data (ED) Vital Signs Vital Signs - 24 hr 06/10/22 20:44 06/10/22 22:31 Temperature 36.4 C L Temperature Source Temporal Artery Scan Pulse Rate 90 92 H Pulse Rate from SpO2 Sensor 92 H Pulse Rhythm Regular Pulse Strength Normal Respiratory Rate 20 23 Respiratory Effort / Characteristics Non-Labored Spontaneous Respiratory Depth Normal Respiratory Pattern Regular Blood Pressure 142/90 H 125/94 Blood Pressure Mean 107 104 Blood Pressure Position Sitting Pulse Oximetry 97 97 Oxygen Delivery Method Room Air Nasal Cannula Oxygen Flow Rate 2 Sepsis Recent Fever Within 48 Hours No Sepsis New/Unexplained Change in Mental Status N/A Sepsis Action Taken by Nursing No Action Required Laboratory Data 06/10/22 21:18 06/10/22 21:18 Lab Results 06/10/22 06/10/22 06/10/22 Range/Units 21:15 21:18 21:18 WBC 3.41 L (4.8-10.8) K/ul RBC 3.82 L (4.20-5.40) M/uL Hgb 12.9 (12.0-16.0) g/dl Hct 37.5 (37.0-47.0) % MCV 98.2 (80.0-100.0) fL MCH 33.8 (25.0-34.0) pg MCHC 34.4 (32.0-36.0) g/dL RDW Std Deviation 41.1 (36.4-46.3) fL RDW Coeff of Don 11.5 (11.5-14.5) % Plt Count 103 L (130-400) K/uL MPV 9.7 (9.4-12.4) fL Immature Gran % (Auto) 0.3 % Neut % (Auto) 46.3 % Lymph % (Auto) 37.2 % [place] % (Auto) 14.1 % Eos % (Auto) 1.2 % Baso % (Auto) 0.9 % Neut # (Auto) 1.58 (1.40-6.50) K/uL Lymph # (Auto) 1.27 (1.2-3.4) K/uL [place] # (Auto) 0.48 (0.11-0.59) K/uL Eos # (Auto) 0.04 (0-0.50) K/uL Baso # (Auto) 0.03 (0-0.2) K/uL Immature Gran # (Auto) 0.01 (0.01-0.20) K/uL VBG pH (7.36-7.41) VBG pCO2 (38-50) mmHg VBG pO2 mmHg VBG HCO3 mmol/L VBG O2 Saturation % VBG Base Excess mEq/L Sodium 136 (136-145) mmol/L Potassium 3.6 (3.5-5.1) mmol/L Chloride 97 L (98-107) mmol/L Carbon Dioxide 26 (21-32) mmol/L Anion Gap 13 H (3-11) BUN 3 L (6-23) mg/dl Creatinine 0.40 L (0.6-1.2) mg/dl Est Cr Clr Drug Dosing Not Reportable Est GFR ( Amer) 128.5 ml/min Est GFR (Non-Af Amer) 110.9 ml/min BUN/Creatinine Ratio 7.5 L (10-20) Glucose 83 (70-99(Fasting)) mg/dl Calcium 9.0 (8.5-10.1) mg/dl Total Bilirubin 0.3 (0.2-1.0) mg/dl AST 90 H (13-39) U/L ALT 38 (7-52) U/L Alkaline Phosphatase 159 H (34-104) U/L Total Protein 6.7 (6.0-8.3) gm/dl Albumin 4.1 (3.4-5.0) gm/dl Globulin 2.6 (2.5-4.0) gm/dl Albumin/Globulin Ratio 1.6 (0.9-2) Ethyl Alcohol mg/dL (<10.0) mg/dl SARS-CoV-2, RNA, NAAT NEGATIVE (NEGATIVE) 06/10/22 06/10/22 Range/Units 21:18 22:36 WBC (4.8-10.8) K/ul RBC (4.20-5.40) M/uL Hgb (12.0-16.0) g/dl Hct (37.0-47.0) % MCV (80.0-100.0) fL MCH (25.0-34.0) pg MCHC (32.0-36.0) g/dL RDW Std Deviation (36.4-46.3) fL RDW Coeff of Don (11.5-14.5) % Plt Count (130-400) K/uL MPV (9.4-12.4) fL Immature Gran % (Auto) % Neut % (Auto) % Lymph % (Auto) % [place] % (Auto) % Eos % (Auto) % Baso % (Auto) % Neut # (Auto) (1.40-6.50) K/uL Lymph # (Auto) (1.2-3.4) K/uL [place] # (Auto) (0.11-0.59) K/uL Eos # (Auto) (0-0.50) K/uL Baso # (Auto) (0-0.2) K/uL Immature Gran # (Auto) (0.01-0.20) K/uL VBG pH 7.34 L (7.36-7.41) VBG pCO2 58 H (38-50) mmHg VBG pO2 31 mmHg VBG HCO3 31 mmol/L VBG O2 Saturation < 60.0 % VBG Base Excess 3.9 mEq/L Sodium (136-145) mmol/L Potassium (3.5-5.1) mmol/L Chloride (98-107) mmol/L Carbon Dioxide (21-32) mmol/L Anion Gap (3-11) BUN (6-23) mg/dl Creatinine (0.6-1.2) mg/dl Est Cr Clr Drug Dosing Est GFR ( Amer) ml/min Est GFR (Non-Af Amer) ml/min BUN/Creatinine Ratio (10-20) Glucose (70-99(Fasting)) mg/dl Calcium (8.5-10.1) mg/dl Total Bilirubin (0.2-1.0) mg/dl AST (13-39) U/L ALT (7-52) U/L Alkaline Phosphatase (34-104) U/L Total Protein (6.0-8.3) gm/dl Albumin (3.4-5.0) gm/dl Globulin (2.5-4.0) gm/dl Albumin/Globulin Ratio (0.9-2) Ethyl Alcohol mg/dL 167.7 H (<10.0) mg/dl SARS-CoV-2, RNA, NAAT (NEGATIVE) Administered Medications Discontinued Medications Multivitamins 10 ml/ Thiamine HCl 100 mg/ Folic Acid 1 mg/Sodium Chloride 1,011.2 mls @ 1,011.2 mls/hr IV .Q1H ONE Stop: 06/10/22 21:58 Last Admin: 06/10/22 22:21 Dose: 1,011.2 mls/hr Documented By: CEZAR Discharge Plan Visit Data Chief Complaint: Detox Request Stated Complaint: ALCOHOL DETOX, HASN'T EATEN IN 4 DAYS ED Provider: Bright Augustine Discharge Problem: Weakness, Acute alcoholism Patient Disposition: Being Evaluated by Hospitalist Forms Stand Alone Forms: My [facility], Suicide Prevention Resources Prescriptions Prescriptions: No Action acetylcysteine 200 mg/mL (20 %) solution 3 ml INH Q8 PRN (Reason: congestion) Qty: 200 2RF Rx Instructions: from pt list albuterol sulfate 90 mcg/actuation HFA aerosol inhaler 2 puff INH Q6H PRN (Reason: Shortness Of Breath Or Wheezing) Qty: 18 3RF Anoro Ellipta 62.5-25 mcg/actuation blister with device 1 inh INH QAM Qty: 60 11RF ipratropium-albuterol 0.5 mg-3 mg(2.5 mg base)/3 mL solution for nebulization 3 ml INH Q8H PRN (Reason: shortness of breath or wheezing) Qty: 360 5RF (DME) Aeroneb Go Nebulizer Mis See Rx Instructions .ROUTE .MEDSUPPLY Qty: 1 0RF Rx Instructions: With tubing and supplies. J44.9. J45.9. levocetirizine 5 mg tablet 5 mg PO DAILY PRN (Reason: allergy symptoms) Qty: 90 1RF ergocalciferol (vitamin D2) 1,250 mcg (50,000 unit) capsule 50,000 unit PO MONTHLY Rx Instructions: PER PT "CAN'T REMEMBER TO ALWAYS TAKE". clonidine 0.1 mg/24 hr patch weekly 1 patch topical WK Label Comments: changes on Rx Instructions: CHANGES ON MONDAYS. PLACE ONE PATCH ONTO THE SKIN ONCE A WEEK ON UPPER OUTER ARM OR CHEST fluticasone propionate [Allergy Relief (fluticasone)] 50 mcg/actuation spray,suspension 1 spray INTNAS QAM PRN (Reason: allergies) Rx Instructions: administer into each nostril once daily pantoprazole 40 mg tablet,delayed release (DR/EC) 40 mg PO DAILY Qty: 30 11RF topiramate 25 mg tablet 50 mg PO HS quetiapine 50 mg tablet 50 mg PO HS Trintellix 5 mg tablet 5 mg PO DAILY Rx Instructions: TOTAL DOSE 15 MG--TAKES WITH 10 MG TAB. Trintellix 10 mg tablet 10 mg PO DAILY Rx Instructions: TOTAL DOSE 15 MG--TAKES WITH 5 MG TAB. cyanocobalamin (vitamin B-12) 1,000 mcg capsule 1,000 mcg PO DAILY Qty: 30 0RF thiamine HCl (vitamin B1) 100 mg tablet 100 mg PO DAILY Qty: 30 0RF trazodone 100 mg tablet 100 - 150 mg PO HS PRN (Reason: Sleep) acetaminophen [Tylenol Extra Strength] 500 mg Tablet 1,000 mg PO Q6H PRN (Reason: Pain) Referrals Referrals: Whit Martinez MD [Primary Care Provider] -
[2022-06-10 21:50] LABS: Basophils # (auto) 0.03 K/uL (0-0.2); Basophils % (auto) 0.9 %; Eosinophils # (auto) 0.04 K/uL (0-0.50); Eosinophils % (auto) 1.2 %; Hematocrit (blood only) 37.5 % (37.0-47.0); Hemoglobin 12.9 g/dl (12.0-16.0); Immature Granulocytes # (auto) 0.01 K/uL (0.01-0.20); Immature Granulocytes % (auto) 0.3 %; Lymphocytes # (auto) 1.27 K/uL (1.2-3.4); Lymphocytes % (auto) 37.2 %; Mean Corpuscular Hemoglobin 33.8 pg (25.0-34.0); Mean Corpuscular Hgb Conc 34.4 g/dL (32.0-36.0); Mean Corpuscular Volume 98.2 fL (80.0-100.0); Mean Platelet Volume 9.7 fL (9.4-12.4); Monocytes # (auto) 0.48 K/uL (0.11-0.59); Monocytes % (auto) 14.1 %; Neutrophils # (auto) 1.58 K/uL (1.40-6.50); Neutrophils % (auto) 46.3 %; Platelet Count 103 K/uL (130-400); RDW Coefficient of Variation 11.5 % (11.5-14.5); RDW Standard Deviation 41.1 fL (36.4-46.3); Red Blood Count 3.82 M/uL (4.20-5.40); White Blood Count 3.41 K/ul (4.8-10.8)
[2022-06-10 22:07] LABS: Albumin Level 4.1 gm/dl (3.4-5.0); Anion Gap 13 (3-11); Bilirubin,Total 0.3 mg/dl (0.2-1.0); Carbon Dioxide 26 mmol/L (21-32); Chloride 97 mmol/L (98-107); Potassium 3.6 mmol/L (3.5-5.1); Sodium 136 mmol/L (136-145)
[2022-06-10 22:13] LABS: Alanine Aminotransferase 38 U/L (7-52); Albumin Globulin Ratio 1.6 (0.9-2); Alkaline Phosphatase 159 U/L (34-104); Aspartate Aminotransferase 90 U/L (13-39); BUN Creatinine Ratio 7.5 (10-20); Blood Urea Nitrogen 3 mg/dl (6-23); Est GFR (African American) 128.5 ml/min; Est GFR (Non-African American) 110.9 ml/min; Globulin 2.6 gm/dl (2.5-4.0); Glucose 83 mg/dl (70-99(Fasting)); Total Protein 6.7 gm/dl (6.0-8.3)
[2022-06-10 22:42] LABS: Base Excess VBG 3.9 mEq/L; HCO3 VBG 31 mmol/L; Oxygen Saturation VBG < 60.0 %; PCO2 VBG 58 mmHg (38-50); PO2 VBG 31 mmHg; pH VBG 7.34 (7.36-7.41)
[2022-06-10] MEDS ORDERED: QUEtiapine FUMARATE 25 MG TABLET PO STA (23:53)
[2022-06-10] MEDS ORDERED: TOPIRAMATE 100 MG TAB PO STA (23:53)
[2022-06-10] MEDS ORDERED: traZODone HCL 100 MG TAB PO STA (23:53)
--- NOTE | 2022-06-10 23:55 | History & Physical Report ---
Date of Service June 10, 2022 Assessment & Plan (1) Alcohol dependence: Plan: 62-year-old female with history of alcohol use disorder presenting with request for detoxification. Patient drinks approximately 2-3 750 mL bottles of wine daily (approximately 15 drinks daily). Last drink was prior to arrival 06/10/2022 evening. Presently patient does not feel that she is withdrawing but does have shakes in the morning Admit to medical telemetry Activate alcohol withdrawal severity scale protocol with Librium and IV Ativan as needed Folic acid 1 mg p.o. daily Thiamine 100 mg p.o. daily Mild elevation of AST = 90 and alkaline phosphatase to 159. Will repeat labs/LFTs in the morning (2) COPD (chronic obstructive pulmonary disease): Plan: Patient reports worsening cough and sputum production. She has adequate oxygenation on her baseline 2 L of oxygen. She feels that her worsening cough is due to increased smoking over the last several weeks. She denies shortness of breath. Nicotine patch requested Smoking cessation counseling. Patient further counseled about the dangers of smoking while on oxygen. Continue umeclidinium vilanterol DuoNeb as needed Guaifenesin as needed (3) Depression: Plan: Chronic. Stable. Continue Trintellixpatient will need to bring from home Continue Seroquel 50 mg p.o. nightly Continue Topamax 100 mg p.o. nightly Continue trazodone 100 mg p.o. nightly F/E/NLR at 125 mL/h x 1 L, electrolytes within normal limits. Patient does have a slight anion gap of 13, most likely secondary to alcohol, regular diet as tolerated Prophylaxislow risk for DVT Codefull per discussion patient Dispositionadmit to medical telemetry History of Present Illness Chief Complaint: Alcohol detox request Primary Care Provider: Whit Martinez MD Lakeisha Aguirre is a 62-year-old female with history of alcohol use disorder, hepatitis and COPD on 2 L of home oxygen as well as depression presenting with request for alcohol detoxification. Patient has been drinking for many years. Was recently sober for several months over the summer however, now continues to drink. She drinks 2-3 750 mL bottles of wine daily. Her last drink was immediately prior to arrival to the ER this evening 06/10/2022. She reports abdominal bloating, and decreased appetite. Reports when she wakes in the morning she does have shakes, nausea and dry heaves which is relieved by drinking. She has history of minor withdrawal symptoms. No DTs or seizures. Additionally, she reports she has been smoking more lately. She smokes approximately 1-1/2 packs/day. She reports worsening of her cough and thickening of her sputum over the last week. Denies fevers, chills, night sweats. Denies abdominal pain. No additional complaints at this time. Upon arrival to the ER patient is afebrile, hemodynamically stable, stable respiratory status on her baseline 2 L of oxygen. She reports that this time she does not feel like she is going through withdrawal symptoms however, does anticipate feeling shaky in the morning. ER course: Banana bag Allergies Allergy/AdvReac Type Severity Reaction Status Date / Time RACIEL Inhibitors AdvReac Intermediate COUGH Verified 11/14/21 15:17 naltrexone [From Vivitrol] AdvReac Intermediate Hair Verified 11/14/21 15:17 loss/ingrown hairs over body Home Medications Medication Instructions Recorded Confirmed Type trazodone 100 mg tablet 100 mg PO HS PRN Sleep 08/15/20 06/10/22 History umeclidinium 62.5 mcg-vilanterol 1 inh inhalation QAM #60 ea 06/22/21 06/10/22 Rx 25 mcg/actuation powdr for inhalation (Anoro Ellipta) quetiapine 50 mg tablet 50 mg PO HS 11/14/21 06/10/22 History topiramate 25 mg tablet 100 mg PO HS 11/14/21 06/10/22 History vortioxetine 10 mg tablet 20 mg PO DAILY 11/14/21 06/10/22 History (Trintellix) Past Med/Surg History Medical History Alcoholic hepatitis Anemia Anxiety reason for depakote Ascites Asthma Atelectasis of left lung COPD (chronic obstructive pulmonary disease) inhaler daily/prn Depression Emphysema of lung Hiatal hernia Jaundice Leukocytosis (04/21/14) On home oxygen therapy 1-2L N/C prn Sepsis due to Streptococcus pneumoniae hx of Sleep apnea cpap with 2 L oxygen at hs Tachycardia (08/17/13) Surgical History History of bronchoscopy History of colonoscopy History of ovarian cystectomy History of tooth extraction S/P removal of ovarian cyst Family History Father Myocardial infarction Hypertension Other No family history of adverse response to anesthesia Social History Smoking Status: Current every day smoker Tobacco Type: Cigarettes Cigarettes Per Day: 20; Second Hand Exposure: Yes; Hx Alcohol Use: Yes Alcohol type: beer, wine and hard liquor Alcohol Intake Frequency Comment: 500 ml a day Hx Substance Use: No Preferred Language: Turkish Communication Ability: Effective [employer]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 [employer] Required: No Beliefs That Will Affect Care: None marital status: Current Living Situation: Spouse How many Children do You have: 3 Feels Safe at Home: Yes Assistive Devices: BiPap and Oxygen - Continuous Review of Systems Review of Systems: All systems reviewed & are unremarkable except as noted in HPI & below Physical Exam Physical Exam: General: patient resting comfortably, NAD, non-toxic in appearance, AA&O x 4 Skin: warm, dry, intact, no rashes or lesions HEENT: NC/AT, PERRL, EOMI, anicteric sclera, conjunctiva without injection, external ear normal to inspection and nontender, nares patent, slightly dry mucus membranes, dentition intact, no oropharyngeal lesions, neck supple, trachea midline, no LAD, no thyromegaly, no JVD Heart: +S1/S2, regular, no m/r/g Lungs: Diminished breath sounds bilaterally, diffuse end expiratory wheezing throughout bilateral lung partida, no rhonchi Abd: +BS, soft, NT/ND, no masses/organomegaly/ascites Ext: warm, 2+ pulses in UE/LE bilaterally, no clubbing/cyanosis or edema Neuro: nonfocal, patient AA&O x 4, speech intact, no facial droop, moving all extremities on command with equal strength 5/5 Results & Data Results & Data ([facility]) Vital Signs (Past 12 Hours) Vital Signs Temp Pulse Resp BP Pulse Ox O2 Del Method O2 Flow Rate 06/10/22 23:01 81 21 109/65 94 Nasal Cannula 2 06/10/22 22:31 92 H 23 125/94 97 Nasal Cannula 2 06/10/22 20:44 36.4 C L 90 20 142/90 H 97 Room Air Laboratory Results Laboratory Results WBC 3.41 K/ul (4.8-10.8) L 06/10/22 21:18 RBC 3.82 M/uL (4.20-5.40) L 06/10/22 21:18 Hgb 12.9 g/dl (12.0-16.0) 06/10/22 21:18 Hct 37.5 % (37.0-47.0) 06/10/22 21:18 MCV 98.2 fL (80.0-100.0) 06/10/22 21:18 MCH 33.8 pg (25.0-34.0) 06/10/22 21:18 MCHC 34.4 g/dL (32.0-36.0) 06/10/22 21:18 RDW Std Deviation 41.1 fL (36.4-46.3) 06/10/22 21:18 RDW Coeff of Don 11.5 % (11.5-14.5) 06/10/22 21:18 Plt Count 103 K/uL (130-400) L 06/10/22 21:18 MPV 9.7 fL (9.4-12.4) 06/10/22 21:18 Immature Gran % (Auto) 0.3 % 06/10/22 21:18 Neut % (Auto) 46.3 % 06/10/22 21:18 Lymph % (Auto) 37.2 % 06/10/22 21:18 Wilcox % (Auto) 14.1 % 06/10/22 21:18 Eos % (Auto) 1.2 % 06/10/22 21:18 Baso % (Auto) 0.9 % 06/10/22 21:18 Neut # (Auto) 1.58 K/uL (1.40-6.50) 06/10/22 21:18 Lymph # (Auto) 1.27 K/uL (1.2-3.4) 06/10/22 21:18 Wilcox # (Auto) 0.48 K/uL (0.11-0.59) 06/10/22 21:18 Eos # (Auto) 0.04 K/uL (0-0.50) 06/10/22 21:18 Baso # (Auto) 0.03 K/uL (0-0.2) 06/10/22 21:18 Immature Gran # (Auto) 0.01 K/uL (0.01-0.20) 06/10/22 21:18 VBG pH 7.34 (7.36-7.41) L 06/10/22 22:36 VBG pCO2 58 mmHg (38-50) H 06/10/22 22:36 VBG pO2 31 mmHg 06/10/22 22:36 VBG HCO3 31 mmol/L 06/10/22 22:36 VBG O2 Saturation < 60.0 % 06/10/22 22:36 VBG Base Excess 3.9 mEq/L 06/10/22 22:36 Sodium 136 mmol/L (136-145) 06/10/22 21:18 Potassium 3.6 mmol/L (3.5-5.1) 06/10/22 21:18 Chloride 97 mmol/L (98-107) L 06/10/22 21:18 Carbon Dioxide 26 mmol/L (21-32) 06/10/22 21:18 Anion Gap 13 (3-11) H 06/10/22 21:18 BUN 3 mg/dl (6-23) L 06/10/22 21:18 Creatinine 0.40 mg/dl (0.6-1.2) L 06/10/22 21:18 Est Cr Clr Drug Dosing Not Reportable 06/10/22 21:18 Est GFR ( Amer) 128.5 ml/min 06/10/22 21:18 Est GFR (Non-Af Amer) 110.9 ml/min 06/10/22 21:18 BUN/Creatinine Ratio 7.5 (10-20) L 06/10/22 21:18 Glucose 83 mg/dl (70-99(Fasting)) 06/10/22 21:18 Calcium 9.0 mg/dl (8.5-10.1) 06/10/22 21:18 Total Bilirubin 0.3 mg/dl (0.2-1.0) 06/10/22 21:18 AST 90 U/L (13-39) H 06/10/22 21:18 ALT 38 U/L (7-52) 06/10/22 21:18 Alkaline Phosphatase 159 U/L (34-104) H 06/10/22 21:18 Total Protein 6.7 gm/dl (6.0-8.3) 06/10/22 21:18 Albumin 4.1 gm/dl (3.4-5.0) 06/10/22 21:18 Globulin 2.6 gm/dl (2.5-4.0) 06/10/22 21:18 Albumin/Globulin Ratio 1.6 (0.9-2) 06/10/22 21:18 Ethyl Alcohol mg/dL 167.7 mg/dl (<10.0) H 06/10/22 21:18 SARS-CoV-2, RNA, NAAT NEGATIVE (NEGATIVE) 06/10/22 21:15 PG Care Time/CCT Total # of Minutes Spent Total Time Spent with Patient: Total time spent is greater than 50% in coordination of care (as documented) at patient's floor/unit and/or counseling patient: Coding Level of Care Code 40476 INT INP/OBS CARE 255MIN Diagnoses Alcohol dependence F10.29 Substance use status: unspecified alcohol-induced disorder COPD (chronic obstructive pulmonary disease) J44.9 COPD type: unspecified COPD Depression F32.89 Depression Type: other depression (1) Alcohol dependence Substance use status: unspecified alcohol-induced disorder Qualified Code(s): F10.29 - Alcohol dependence with unspecified alcohol-induced disorder (2) Depression Depression Type: other depression Qualified Code(s): F32.89 - Other specified depressive episodes (3) COPD (chronic obstructive pulmonary disease) COPD type: unspecified COPD Qualified Code(s): J44.9 - Chronic obstructive pulmonary disease, unspecified
[2022-06-11] MEDS ORDERED: LACTATED RINGER'S 1,000 ML IV SCH (02:39)
[2022-06-11] MEDS ORDERED: Ativan PO Alcohol Withdrawal--Active Protocol PO PRN (02:39)
[2022-06-11] MEDS ORDERED: chlordiazePOXIDE ALCOHOL WITHDRAWL 50MG PO STA (02:39)
[2022-06-11] MEDS ORDERED: LORazepam 1 MG TAB PO PRN ×2 (02:39)
[2022-06-11] MEDS: chlordiazePOXIDE HCl 25 MG CAP PO SCH ×4 (03:03→21:20)
[2022-06-11 03:05] LABS: Magnesium 1.7 mg/dl (1.7-2.4)
[2022-06-11 03:11] LABS: Phosphorus 3.6 mg/dl (2.5-4.9)
--- NOTE | 2022-06-11 08:50 | XRay Report ---
XR chest 1V portable HISTORY: 62 years-old Female copd, weak acute weakness COMPARISON: Chest radiograph 11/14/2021 TECHNIQUE: AP view of the chest FINDINGS: Cardiomediastinal and hilar silhouettes are within normal limits. No pneumothorax, large pleural effu amber or overt pulmonary edema. Numerous subcentimeter calcified pulmonary granulomata redemonstrated along with emphysema and chronic interstitial coarsening. Mild linear scarring versus atelectasis of the left lung base. Degenerative changes of the shoulders and spine. IMPRESSION: 1. Emphysema without acute process. 2. Prior granulomatous disease. ACT 112: Negative or not required by law. The above report was generated using voice recognition software. It may contain grammatical, syntax o r spelling errors. Electronically signed by: Bk Lawrence M.D. 06/11/2022 8:49 AM
[2022-06-11] MEDS: UMECLIDINIUM/VILANTEROL 62.5/25MCG 7 PUFFS/INHALER INH SCH (09:28)
[2022-06-11] MEDS: NICOTINE 21 MG/24 HR TDSY TD SCH (09:28)
[2022-06-11] MEDS: THIAMINE HCL 100 MG TAB PO SCH (09:29)
[2022-06-11] MEDS: FOLIC ACID 1 MG TAB PO SCH (09:29)
[2022-06-11] MEDS: guaiFENesin/DEXTROM SYRUP 200MG/20MG 10ML UDC PO PRN ×2 (09:34→14:23)
[2022-06-11 09:40] LABS: Hemoglobin 11.8 g/dl (12.0-16.0); Mean Corpuscular Hemoglobin 33.4 pg (25.0-34.0); Mean Corpuscular Hgb Conc 33.7 g/dL (32.0-36.0); Mean Corpuscular Volume 99.2 fL (80.0-100.0); Mean Platelet Volume 9.4 fL (9.4-12.4); Platelet Count 90 K/uL (130-400); Platelet Estimate Decreased (Normal); RDW Coefficient of Variation 11.7 % (11.5-14.5); RDW Standard Deviation 42.5 fL (36.4-46.3); Red Blood Count 3.53 M/uL (4.20-5.40); White Blood Count 1.87 K/ul (4.8-10.8)
[2022-06-11] MEDS: ALBUT/IPRATROP 3MG/0.5MG NEB 3 ML VIAL NEB PRN ×3 (09:43→19:48)
[2022-06-11 09:44] LABS: Albumin Level 3.3 gm/dl (3.4-5.0); Bilirubin Direct 0.1 mg/dl (0-0.2); Bilirubin,Total 0.4 mg/dl (0.2-1.0); Potassium 3.4 mmol/L (3.5-5.1)
[2022-06-11 09:50] LABS: BUN Creatinine Ratio 7.1 (10-20); Creatinine Clr Calc Pharmacy 110.9 ml/min; Est GFR (African American) 126.4 ml/min; Est GFR (Non-African American) 109.1 ml/min; Total Protein 5.5 gm/dl (6.0-8.3)
--- NOTE | 2022-06-11 10:00 | Electrocardiogram Report ---
Test Reason : Blood Pressure : / mmHG Vent. Rate : 087 BPM Atrial Rate : 087 BPM P-R Int : 152 ms QRS Dur : 078 ms QT Int : 386 ms P-R-T Axes : 075 095 052 degrees QTc Int : 464 ms Normal sinus rhythm Rightward axis Septal infarct , age undetermined Abnormal ECG When compared with ECG of 14-NOV-2021 12:22, No significant change was found Confirmed by Wilman De La Rosa ([id number]) on 06/11/2022 10:00:10 AM Referred By: REFERRED SELF Confirmed By:Wilman De La Rosa
[2022-06-11] MEDS ORDERED: Flu Vaccine (Fluarix) 0.5mL SYR (Standard Dose) IM ONE (12:00)
[2022-06-11] MEDS: AMOXICILLIN/CLAVULANATE 875 MG TAB PO SCH (17:06)
[2022-06-11] MEDS: LORazepam 1 MG TAB PO PRN ×2 (17:38→21:28)
[2022-06-11] MEDS: QUEtiapine FUMARATE 25 MG TABLET PO SCH (21:20)
[2022-06-11] MEDS: TOPIRAMATE 100 MG TAB PO SCH (21:21)
[2022-06-11] MEDS: traZODone HCL 50 MG TAB PO PRN (21:22)
--- NOTE | 2022-06-11 21:39 | Hospitalist Progress Note ---
Date of Service June 11, 2022 Assessment & Plan (1) Alcohol dependence: Plan: Nose evidence of significant alcohol withdrawal, currently patient is scheduled dose of Librium, no significant tremor, complaining of having productive cough, patient is active smoker, start Augmentin for bronchitis 62-year-old female with history of alcohol use disorder presenting with request for detoxification. Patient drinks approximately 2-3 750 mL bottles of wine daily (approximately 15 drinks daily). Last drink was prior to arrival 06/10/2022 evening. Presently patient does not feel that she is withdrawing but does have shakes in the morning Admit to medical telemetry Activate alcohol withdrawal severity scale protocol with Librium and IV Ativan as needed Folic acid 1 mg p.o. daily Thiamine 100 mg p.o. daily Mild elevation of AST = 90 and alkaline phosphatase to 159. Will repeat labs/LFTs in the morning (2) Pancytopenia: Plan: Pancytopenia, mostly secondary to bone marrow suppression due to alcoholism Worsening today, white cell count dropped from 3.4 yesterday to 1.87 today -Platelet count dropped from 100-90,000 Repeat CBC tomorrow -Absolute neutrophil count is more than 700 Present on Admission?: Yes (3) COPD (chronic obstructive pulmonary disease): Plan: -Complain of productive cough, no wheezing on exam, started on Augmentin oxygen dependent, currently oxygen requirement is at the baseline Smoking cessation counseling. Patient further counseled about the dangers of smoking while on oxygen. Continue umeclidinium vilanterol DuoNeb as needed Guaifenesin as needed (4) Depression: Plan: Chronic. Stable. Continue Trintellixpatient will need to bring from home Continue Seroquel 50 mg p.o. nightly Continue Topamax 100 mg p.o. nightly Continue trazodone 100 mg p.o. nightly F/E/NLR at 125 mL/h x 1 L, electrolytes within normal limits. Patient does have a slight anion gap of 13, most likely secondary to alcohol, regular diet as tolerated Prophylaxislow risk for DVT Codefull per discussion patient Dispositionadmit to medical telemetry Admission and Anticipated Discharge Date Admission Date: June 10, 2022 Subjective Examined today, no evidence of significant alcohol withdrawal syndrome, currently scheduled dose of Librium Physical Exam Physical Exam: General: patient resting comfortably, NAD, non-toxic in appearance, AA&O x 4 Skin: warm, dry, intact, no rashes or lesions HEENT: NC/AT, PERRL, EOMI, anicteric sclera, conjunctiva without injection, external ear normal to inspection and nontender, nares patent, slightly dry mucus membranes, dentition intact, no oropharyngeal lesions, neck supple, trachea midline, no LAD, no thyromegaly, no JVD Heart: +S1/S2, regular, no m/r/g Lungs: Diminished breath sounds bilaterally, diffuse end expiratory wheezing throughout bilateral lung partida, no rhonchi Abd: +BS, soft, NT/ND, no masses/organomegaly/ascites Ext: warm, 2+ pulses in UE/LE bilaterally, no clubbing/cyanosis or edema Neuro: nonfocal, patient AA&O x 4, speech intact, no facial droop, moving all extremities on command with equal strength 5/5 Results & Data Results & Data ([facility]) Vital Signs (Past 12 Hours) Vital Signs Temp Pulse Pulse Resp BP Pulse Ox Pulse Ox 06/11/22 19:50 36.5 C 78 18 104/68 94 06/11/22 19:48 79 18 93 06/11/22 19:12 06/11/22 17:35 36.4 C L 80 22 95/62 L 94 06/11/22 16:00 93 06/11/22 14:39 78 06/11/22 15:03 36.8 C 79 16 95/63 L 100 06/11/22 14:39 78 18 94 06/11/22 11:56 36.9 C 77 16 99/66 L 94 06/11/22 09:43 77 18 90 O2 Del Method O2 Del Method O2 Flow Rate O2 Flow Rate 06/11/22 19:50 Nasal Cannula 2 06/11/22 19:48 Nasal Cannula 2 06/11/22 19:12 Nasal Cannula 2 06/11/22 17:35 Nasal Cannula 2 06/11/22 16:00 Nasal Cannula 2 06/11/22 14:39 06/11/22 15:03 Nasal Cannula 2 06/11/22 14:39 Nasal Cannula 2 06/11/22 11:56 Nasal Cannula 2 06/11/22 09:43 Nasal Cannula 2 PG Care Time/CCT Total # of Minutes Spent Total Time Spent with Patient: Total time spent is greater than 50% in coordination of care (as documented) at patient's floor/unit and/or counseling patient: Coding Level of Care Code 43843 SUB INP/OBS CARE Diagnoses Alcohol dependence F10.29 Substance use status: unspecified alcohol-induced disorder Pancytopenia D61.818 COPD (chronic obstructive pulmonary disease) J44.9 COPD type: unspecified COPD Depression F32.89 Depression Type: other depression (1) Alcohol dependence Substance use status: unspecified alcohol-induced disorder Qualified Code(s): F10.29 - Alcohol dependence with unspecified alcohol-induced disorder (2) COPD (chronic obstructive pulmonary disease) COPD type: unspecified COPD Qualified Code(s): J44.9 - Chronic obstructive pulmonary disease, unspecified (3) Depression Depression Type: other depression Qualified Code(s): F32.89 - Other specified depressive episodes
[2022-06-12] MEDS: chlordiazePOXIDE HCl 25 MG CAP PO SCH ×2 (02:05→11:04)
[2022-06-12] MEDS: LORazepam 1 MG TAB PO PRN (07:08)
[2022-06-12 08:03] LABS: Basophils # (auto) 0.01 K/uL (0-0.2); Basophils % (auto) 0.4 %; Eosinophils # (auto) 0.06 K/uL (0-0.50); Eosinophils % (auto) 2.2 %; Hematocrit (blood only) 34.7 % (37.0-47.0); Hemoglobin 11.3 g/dl (12.0-16.0); Immature Granulocytes # (auto) 0.01 K/uL (0.01-0.20); Immature Granulocytes % (auto) 0.4 %; Lymphocytes # (auto) 0.49 K/uL (1.2-3.4); Lymphocytes % (auto) 18.4 %; Mean Corpuscular Hemoglobin 33.4 pg (25.0-34.0); Mean Corpuscular Hgb Conc 32.6 g/dL (32.0-36.0); Mean Corpuscular Volume 102.7 fL (80.0-100.0); Mean Platelet Volume 9.7 fL (9.4-12.4); Monocytes # (auto) 0.28 K/uL (0.11-0.59); Monocytes % (auto) 10.5 %; Neutrophils # (auto) 1.82 K/uL (1.40-6.50); Neutrophils % (auto) 68.1 %; Platelet Count 76 K/uL (130-400); RDW Coefficient of Variation 11.9 % (11.5-14.5); RDW Standard Deviation 44.7 fL (36.4-46.3); Red Blood Count 3.38 M/uL (4.20-5.40); White Blood Count 2.67 K/ul (4.8-10.8)
[2022-06-12 08:22] LABS: BUN Creatinine Ratio 13.6 (10-20); Calcium 9.3 mg/dl (8.5-10.1); Creatinine Clr Calc Pharmacy 105.9 ml/min; Est GFR (African American) 124.5 ml/min; Est GFR (Non-African American) 107.4 ml/min; Potassium 3.3 mmol/L (3.5-5.1)
[2022-06-12] MEDS: FOLIC ACID 1 MG TAB PO SCH (08:37)
[2022-06-12] MEDS: AMOXICILLIN/CLAVULANATE 875 MG TAB PO SCH ×2 (08:37→16:48)
[2022-06-12] MEDS: THIAMINE HCL 100 MG TAB PO SCH (08:37)
[2022-06-12] MEDS: NICOTINE 21 MG/24 HR TDSY TD SCH (08:37)
[2022-06-12] MEDS: UMECLIDINIUM/VILANTEROL 62.5/25MCG 7 PUFFS/INHALER INH SCH (08:37)
[2022-06-12] MEDS: guaiFENesin/DEXTROM SYRUP 200MG/20MG 10ML UDC PO PRN ×2 (08:37→19:11)
[2022-06-12] MEDS: ACETAMINOPHEN 325 MG TAB PO PRN (08:40)
[2022-06-12] MEDS: ALBUT/IPRATROP 3MG/0.5MG NEB 3 ML VIAL NEB PRN ×2 (09:02→15:56)
[2022-06-12] MEDS ORDERED: chlordiazePOXIDE HCl 25 MG CAP PO PRN (11:04)
[2022-06-12] MEDS: VORTIOXETINE HYDROBROMIDE PO SCH (11:44)
[2022-06-12] MEDS: POTASSIUM CHLORIDE CRTAB 20 MEQ TABCR PO SCH (11:46)
--- NOTE | 2022-06-12 17:36 | Hospitalist Progress Note ---
Date of Service June 12, 2022 Assessment & Plan (1) Alcohol dependence: Plan: 62-year-old female with history of alcohol use disorder presenting with request for detoxification. Patient drinks approximately 2-3 750 mL bottles of wine daily (approximately 15 drinks daily). Last drink was prior to arrival 06/10/2022 evening. Currently on CIWA protocol no evidence of significant alcohol withdrawal, currently patient is scheduled dose of Librium, no significant tremor, the patient is very lethargic, discontinue scheduled Librium, possible discharge tomorrow start Augmentin for bronchitis Folic acid 1 mg p.o. daily Thiamine 100 mg p.o. daily Mild elevation of AST = 90 and alkaline phosphatase to 159. (2) Pancytopenia: Plan: Pancytopenia, mostly secondary to bone marrow suppression due to alcoholism Monitor for now CBC tomorrow (3) COPD (chronic obstructive pulmonary disease): Plan: -productive cough, no wheezing on exam, started on Augmentin oxygen dependent, currently oxygen requirement is at the baseline Smoking cessation counseling. Patient further counseled about the dangers of smoking while on oxygen. Continue umeclidinium vilanterol DuoNeb as needed Guaifenesin as needed (4) Depression: Plan: Chronic. Stable. Continue Trintellixpatient will need to bring from home Continue Seroquel 50 mg p.o. nightly Continue Topamax 100 mg p.o. nightly Continue trazodone 100 mg p.o. nightly F/E/NLR at 125 mL/h x 1 L, electrolytes within normal limits. Patient does have a slight anion gap of 13, most likely secondary to alcohol, regular diet as tolerated Prophylaxislow risk for DVT Codefull per discussion patient Dispositionadmit to medical telemetry Admission and Anticipated Discharge Date Admission Date: June 10, 2022 Subjective No evidence of alcohol withdrawal signs and symptoms, patient is lethargic and sleepy, stop scheduled Librium Results & Data Results & Data ([facility]) Vital Signs (Past 12 Hours) Vital Signs Temp Pulse Pulse Resp BP Pulse Ox Pulse Ox 06/12/22 15:56 84 18 97 06/12/22 15:29 36.5 C 80 16 118/76 94 06/12/22 14:10 80 06/12/22 12:44 36.7 C 90 22 144/75 H 94 06/12/22 08:00 90 06/12/22 11:09 22 91 06/12/22 11:05 37.3 C 80 20 99/65 L 89 L 06/12/22 11:04 87 L 06/12/22 09:02 88 18 94 06/12/22 07:10 06/12/22 07:14 36.8 C 83 16 115/79 91 06/12/22 05:59 79 O2 Del Method O2 Del Method O2 Flow Rate O2 Flow Rate 06/12/22 15:56 Nasal Cannula 3 06/12/22 15:29 Nasal Cannula 3 06/12/22 14:10 06/12/22 12:44 Nasal Cannula 3 06/12/22 08:00 Nasal Cannula 2 06/12/22 11:09 Nasal Cannula 3 06/12/22 11:05 Nasal Cannula 2 06/12/22 11:04 Nasal Cannula 2 06/12/22 09:02 Nasal Cannula 2 06/12/22 07:10 Nasal Cannula 2 06/12/22 07:14 Nasal Cannula 1 06/12/22 05:59 PG Care Time/CCT Total # of Minutes Spent Total Time Spent with Patient: Total time spent is greater than 50% in coordination of care (as documented) at patient's floor/unit and/or counseling patient: Coding Level of Care Code 65116 SUB INP/OBS CARE 3/50MIN Diagnoses Alcohol dependence F10.29 Substance use status: unspecified alcohol-induced disorder Pancytopenia D61.818 COPD (chronic obstructive pulmonary disease) J44.9 COPD type: unspecified COPD Depression F32.89 Depression Type: other depression (1) Alcohol dependence Substance use status: unspecified alcohol-induced disorder Qualified Code(s): F10.29 - Alcohol dependence with unspecified alcohol-induced disorder (2) COPD (chronic obstructive pulmonary disease) COPD type: unspecified COPD Qualified Code(s): J44.9 - Chronic obstructive pulmonary disease, unspecified (3) Depression Depression Type: other depression Qualified Code(s): F32.89 - Other specified depressive episodes
[2022-06-12] MEDS: TOPIRAMATE 100 MG TAB PO SCH (19:10)
[2022-06-12] MEDS: QUEtiapine FUMARATE 25 MG TABLET PO SCH (19:11)
[2022-06-13] MEDS: ALBUT/IPRATROP 3MG/0.5MG NEB 3 ML VIAL NEB PRN (07:20)
[2022-06-13 08:22] LABS: Hematocrit (blood only) 38.1 % (37.0-47.0); Hemoglobin 12.5 g/dl (12.0-16.0); Mean Corpuscular Hemoglobin 33.5 pg (25.0-34.0); Mean Corpuscular Hgb Conc 32.8 g/dL (32.0-36.0); Mean Corpuscular Volume 102.1 fL (80.0-100.0); Mean Platelet Volume 9.8 fL (9.4-12.4); Platelet Count 81 K/uL (130-400); RDW Standard Deviation 45.1 fL (36.4-46.3); Red Blood Count 3.73 M/uL (4.20-5.40); White Blood Count 2.51 K/ul (4.8-10.8)
[2022-06-13] MEDS: NICOTINE 21 MG/24 HR TDSY TD SCH (08:25)
[2022-06-13] MEDS: AMOXICILLIN/CLAVULANATE 875 MG TAB PO SCH ×2 (08:25→17:06)
[2022-06-13] MEDS: POTASSIUM CHLORIDE CRTAB 20 MEQ TABCR PO SCH (08:25)
[2022-06-13] MEDS: VORTIOXETINE HYDROBROMIDE PO SCH (08:26)
[2022-06-13] MEDS: FOLIC ACID 1 MG TAB PO SCH (08:26)
[2022-06-13] MEDS: THIAMINE HCL 100 MG TAB PO SCH (08:26)
[2022-06-13 08:27] LABS: Albumin Globulin Ratio 1.3 (0.9-2); Albumin Level 3.4 gm/dl (3.4-5.0); BUN Creatinine Ratio 15.2 (10-20); Bilirubin,Total 0.3 mg/dl (0.2-1.0); Calcium 9.6 mg/dl (8.5-10.1); Est GFR (African American) 122.7 ml/min; Est GFR (Non-African American) 105.9 ml/min; Globulin 2.6 gm/dl (2.5-4.0); Potassium 3.7 mmol/L (3.5-5.1)
[2022-06-13] MEDS: UMECLIDINIUM/VILANTEROL 62.5/25MCG 7 PUFFS/INHALER INH SCH (08:27)
[2022-06-13] MEDS: LORazepam 1 MG TAB PO PRN (08:30)
--- NOTE | 2022-06-13 16:33 | Hospitalist Progress Note ---
Date of Service June 13, 2022 Assessment & Plan (1) Alcohol dependence: Plan: 62-year-old female with history of alcohol use disorder presenting with request for detoxification. Patient drinks approximately 2-3 750 mL bottles of wine daily (approximately 15 drinks daily). Last drink was prior to arrival 06/10/2022 evening. Currently on CIWA protocol Patient still has some tremors on exam On Librium and Ativan PRN Continue Thiamine and Folate (2) Pancytopenia: Plan: Pancytopenia, mostly secondary to bone marrow suppression due to alcoholism Monitor for now CBC tomorrow (3) COPD (chronic obstructive pulmonary disease): Plan: -productive cough, no wheezing on exam, started on Augmentin oxygen dependent, currently oxygen requirement is at the baseline Smoking cessation counseling. Patient further counseled about the dangers of smoking while on oxygen. Continue umeclidinium vilanterol DuoNeb as needed Guaifenesin as needed (4) Depression: Plan: Chronic. Stable. Continue Trintellixpatient will need to bring from home Continue Seroquel 50 mg p.o. nightly Continue Topamax 100 mg p.o. nightly Continue trazodone 100 mg p.o. nightly F/E/NLR at 125 mL/h x 1 L, electrolytes within normal limits. Prophylaxislow risk for DVT Codefull per discussion patient Dispositionadmit to medical telemetry Plan hoefully d/c in the next 24 hrs Admission and Anticipated Discharge Date Admission Date: June 10, 2022 Subjective patient seen and examined, still having tremors Review of Systems Review of Systems: All systems reviewed are negative, apart from the ones contained in the history. Physical Exam Physical Exam: The patient is awake, alert and oriented 3, well developed and well nourished, normocephalic and atraumatic, lying in bed and in no acute distress. HEENT--PERRL, EOMI, mucous membranes and oropharynx mildly dry Neck--supple. No JVD. No bruits. Thyroid normal, trachea midline, no adenopathy. Heart--normal S1 and S2. No murmurs, rubs or gallops. Lungs--clear bilaterally, no respiratory distress, no accessory muscle use. Abdomen--normal bowel sounds and soft. Mild epigastric and left sided abdominal pain Extremities--no cyanosis or clubbing. No edema. Dermatologic--normal skin turgor, normal color, no abnormal lymph nodes, no rash. Neurologic--tremors Rheumatologic--normal range of motion. Psychiatric--normal affect. Results & Data Results & Data ([facility]) Vital Signs (Past 12 Hours) Vital Signs Temp Pulse Pulse Resp BP Pulse Ox Pulse Ox 06/13/22 15:38 81 06/13/22 11:40 98.2 F 80 16 113/78 94 06/13/22 08:00 93 06/13/22 08:00 06/13/22 07:33 97.9 F 75 20 113/70 96 06/13/22 07:22 72 06/13/22 07:20 77 18 92 O2 Del Method O2 Del Method O2 Flow Rate O2 Flow Rate 06/13/22 15:38 06/13/22 11:40 Nasal Cannula 2 06/13/22 08:00 Nasal Cannula 3 06/13/22 08:00 Nasal Cannula 3 06/13/22 07:33 Nasal Cannula 2 06/13/22 07:22 06/13/22 07:20 Nasal Cannula 2 PG Care Time/CCT Total # of Minutes Spent Total Time Spent with Patient: Total time spent is greater than 50% in coordination of care (as documented) at patient's floor/unit and/or counseling patient: Coding Level of Care Code 33350 SUB INP/OBS CARE 2/35MIN Diagnoses Alcohol dependence F10.29 Substance use status: unspecified alcohol-induced disorder Pancytopenia D61.818 COPD (chronic obstructive pulmonary disease) J44.9 COPD type: unspecified COPD Depression F32.89 Depression Type: other depression Time Spent (min) 35 (1) Alcohol dependence Substance use status: unspecified alcohol-induced disorder Qualified Code(s): F10.29 - Alcohol dependence with unspecified alcohol-induced disorder (2) COPD (chronic obstructive pulmonary disease) COPD type: unspecified COPD Qualified Code(s): J44.9 - Chronic obstructive pulmonary disease, unspecified (3) Depression Depression Type: other depression Qualified Code(s): F32.89 - Other specified depressive episodes
[2022-06-13] MEDS: TOPIRAMATE 100 MG TAB PO SCH (21:07)
[2022-06-13] MEDS: QUEtiapine FUMARATE 25 MG TABLET PO SCH (21:07)
[2022-06-14] MEDS: POTASSIUM CHLORIDE CRTAB 20 MEQ TABCR PO SCH (07:57)
[2022-06-14] MEDS: AMOXICILLIN/CLAVULANATE 875 MG TAB PO SCH ×2 (07:57→17:32)
[2022-06-14] MEDS: NICOTINE 21 MG/24 HR TDSY TD SCH (07:57)
[2022-06-14] MEDS: THIAMINE HCL 100 MG TAB PO SCH (07:57)
[2022-06-14] MEDS: FOLIC ACID 1 MG TAB PO SCH (07:57)
[2022-06-14] MEDS: guaiFENesin 600 MG TABCR PO SCH ×2 (07:57→21:30)
[2022-06-14] MEDS: UMECLIDINIUM/VILANTEROL 62.5/25MCG 7 PUFFS/INHALER INH SCH (07:58)
[2022-06-14] MEDS: VORTIOXETINE HYDROBROMIDE PO SCH (07:58)
[2022-06-14] MEDS: ACETAMINOPHEN 325 MG TAB PO PRN (08:03)
--- NOTE | 2022-06-14 15:03 | Hospitalist Progress Note ---
Date of Service June 14, 2022 Assessment & Plan (1) Alcohol dependence: Plan: 62-year-old female with history of alcohol use disorder presenting with request for detoxification. Patient drinks approximately 2-3 750 mL bottles of wine daily (approximately 15 drinks daily). Last drink was prior to arrival 06/10/2022 evening. Currently on CIWA protocol Patient still has some tremors on exam On Librium and Ativan PRN Continue Thiamine and Folate (2) Pancytopenia: Plan: Pancytopenia, mostly secondary to bone marrow suppression due to alcoholism Monitor for now CBC tomorrow (3) COPD (chronic obstructive pulmonary disease): Plan: -productive cough, no wheezing on exam, started on Augmentin oxygen dependent, currently oxygen requirement is at the baseline Smoking cessation counseling. Patient further counseled about the dangers of smoking while on oxygen. Continue umeclidinium vilanterol DuoNeb as needed Guaifenesin as needed (4) Depression: Plan: Chronic. Stable. Continue Trintellixpatient will need to bring from home Continue Seroquel 50 mg p.o. nightly Continue Topamax 100 mg p.o. nightly Continue trazodone 100 mg p.o. nightly F/E/NLR at 125 mL/h x 1 L, electrolytes within normal limits. Prophylaxislow risk for DVT Codefull per discussion patient Dispositionadmit to medical telemetry (5) Physical deconditioning: Plan: Patient endorses weakness will consult PT Plan hopefully d/c in the next 24 hrs, awaiting PT eval Admission and Anticipated Discharge Date Admission Date: June 10, 2022 Subjective patient seen and examined, minimal tremors, but endorses weakness Review of Systems Review of Systems: All systems reviewed are negative, apart from the ones contained in the history. Physical Exam Physical Exam: The patient is awake, alert and oriented 3, well developed and well nourished, normocephalic and atraumatic, lying in bed and in no acute distress. HEENT--PERRL, EOMI, mucous membranes and oropharynx mildly dry Neck--supple. No JVD. No bruits. Thyroid normal, trachea midline, no adenopathy. Heart--normal S1 and S2. No murmurs, rubs or gallops. Lungs--clear bilaterally, no respiratory distress, no accessory muscle use. Abdomen--normal bowel sounds and soft. Mild epigastric and left sided abdominal pain Extremities--no cyanosis or clubbing. No edema. Dermatologic--normal skin turgor, normal color, no abnormal lymph nodes, no rash. Neurologic--tremors Rheumatologic--normal range of motion. Psychiatric--normal affect. Results & Data Results & Data ([facility]) Vital Signs (Past 12 Hours) Vital Signs Temp Pulse Pulse Pulse Resp BP Pulse Ox 06/14/22 14:51 98.6 F 75 18 116/76 95 06/14/22 07:40 06/14/22 08:00 71 06/14/22 13:46 06/14/22 12:00 97.3 F L 71 20 131/85 94 06/14/22 06:18 97.7 F 68 18 111/71 94 06/14/22 03:47 98.1 F 69 24 99/66 L 93 Pulse Ox O2 Del Method O2 Flow Rate O2 Flow Rate 06/14/22 14:51 Nasal Cannula 2 06/14/22 07:40 Nasal Cannula 2 06/14/22 08:00 06/14/22 13:46 95 2 06/14/22 12:00 Nasal Cannula 2 06/14/22 06:18 Nasal Cannula 2 06/14/22 03:47 Nasal Cannula 2 PG Care Time/CCT Total # of Minutes Spent Total Time Spent with Patient: Total time spent is greater than 50% in coordination of care (as documented) at patient's floor/unit and/or counseling patient: Coding Level of Care Code 77650 SUB INP/OBS CARE 2/35MIN Diagnoses Alcohol dependence F10.29 Substance use status: unspecified alcohol-induced disorder Pancytopenia D61.818 COPD (chronic obstructive pulmonary disease) J44.9 COPD type: unspecified COPD Depression F32.89 Depression Type: other depression Physical deconditioning R53.81 Time Spent (min) 35 (1) Alcohol dependence Substance use status: unspecified alcohol-induced disorder Qualified Code(s): F10.29 - Alcohol dependence with unspecified alcohol-induced disorder (2) COPD (chronic obstructive pulmonary disease) COPD type: unspecified COPD Qualified Code(s): J44.9 - Chronic obstructive pulmonary disease, unspecified (3) Depression Depression Type: other depression Qualified Code(s): F32.89 - Other specified depressive episodes
[2022-06-14] MEDS: TOPIRAMATE 100 MG TAB PO SCH (21:30)
[2022-06-14] MEDS: QUEtiapine FUMARATE 25 MG TABLET PO SCH (21:30)
[2022-06-14] MEDS ORDERED: POLYETHYLENE (MIRALAX) 17 GM PACK PO PRN (22:31)
[2022-06-14] MEDS ORDERED: FLUARIX QUADRIVALENT 0.5 ML SYR IM ONE (22:59)
[2022-06-15] MEDS: NICOTINE 21 MG/24 HR TDSY TD SCH (08:44)
[2022-06-15] MEDS: AMOXICILLIN/CLAVULANATE 875 MG TAB PO SCH ×2 (08:45→16:46)
[2022-06-15] MEDS: POTASSIUM CHLORIDE CRTAB 20 MEQ TABCR PO SCH (08:45)
[2022-06-15] MEDS: FOLIC ACID 1 MG TAB PO SCH (08:46)
[2022-06-15] MEDS: guaiFENesin 600 MG TABCR PO SCH ×2 (08:46→21:47)
[2022-06-15] MEDS: SENNA 8.6 MG TAB PO SCH (08:46)
[2022-06-15] MEDS: UMECLIDINIUM/VILANTEROL 62.5/25MCG 7 PUFFS/INHALER INH SCH (08:47)
[2022-06-15] MEDS: THIAMINE HCL 100 MG TAB PO SCH (08:47)
[2022-06-15] MEDS: VORTIOXETINE HYDROBROMIDE PO SCH (08:47)
--- NOTE | 2022-06-15 13:53 | Hospitalist Progress Note ---
Date of Service June 15, 2022 Assessment & Plan (1) Alcohol dependence: Plan: 62-year-old female with history of alcohol use disorder presenting with request for detoxification. Patient drinks approximately 2-3 750 mL bottles of wine daily (approximately 15 drinks daily). Last drink was prior to arrival 06/10/2022 evening. Currently on CIWA protocol Patient has very minimal tremors On Librium and Ativan PRN, hasnt required in a couple days Continue Thiamine and Folate (2) Pancytopenia: Plan: Pancytopenia, mostly secondary to bone marrow suppression due to alcoholism Monitor for now CBC tomorrow (3) COPD (chronic obstructive pulmonary disease): Plan: -productive cough, no wheezing on exam, started on Augmentin oxygen dependent, currently oxygen requirement is at the baseline Smoking cessation counseling. Patient further counseled about the dangers of smoking while on oxygen. Continue umeclidinium vilanterol DuoNeb as needed Guaifenesin as needed (4) Depression: Plan: Chronic. Stable. Continue Trintellixpatient will need to bring from home Continue Seroquel 50 mg p.o. nightly Continue Topamax 100 mg p.o. nightly Continue trazodone 100 mg p.o. nightly F/E/NLR at 125 mL/h x 1 L, electrolytes within normal limits. Prophylaxislow risk for DVT Codefull per discussion patient Dispositionadmit to medical telemetry (5) Physical deconditioning: Plan: Patient endorses weakness will consult PT Plan d/c to SNF when accepted Admission and Anticipated Discharge Date Admission Date: June 10, 2022 Subjective patient seen and examined, still has cough and feels very weak Review of Systems Review of Systems: All systems reviewed are negative, apart from the ones contained in the history. Physical Exam Physical Exam: The patient is awake, alert and oriented 3, well developed and well nourished, normocephalic and atraumatic, lying in bed and in no acute distress. HEENT--PERRL, EOMI, mucous membranes and oropharynx mildly dry Neck--supple. No JVD. No bruits. Thyroid normal, trachea midline, no adenopathy. Heart--normal S1 and S2. No murmurs, rubs or gallops. Lungs--clear bilaterally, no respiratory distress, no accessory muscle use. Abdomen--normal bowel sounds and soft. Mild epigastric and left sided abdominal pain Extremities--no cyanosis or clubbing. No edema. Dermatologic--normal skin turgor, normal color, no abnormal lymph nodes, no rash. Neurologic--tremors Rheumatologic--normal range of motion. Psychiatric--normal affect. Results & Data Results & Data ([facility]) Vital Signs (Past 12 Hours) Vital Signs Temp Pulse Pulse Resp BP Pulse Ox O2 Del Method 06/15/22 11:00 98.1 F 78 18 110/74 96 Nasal Cannula 06/15/22 09:10 Nasal Cannula 06/15/22 07:48 97.2 F L 66 20 106/73 94 Nasal Cannula 06/15/22 07:19 69 06/15/22 04:00 96.6 F L 62 19 104/69 95 Nasal Cannula O2 Flow Rate 06/15/22 11:00 2 06/15/22 09:10 2 06/15/22 07:48 2 06/15/22 07:19 06/15/22 04:00 2 PG Care Time/CCT Total # of Minutes Spent Total Time Spent with Patient: Total time spent is greater than 50% in coordination of care (as documented) at patient's floor/unit and/or counseling patient: Coding Level of Care Code 00748 SUB INP/OBS CARE 2/35MIN Diagnoses Alcohol dependence F10.29 Substance use status: unspecified alcohol-induced disorder Pancytopenia D61.818 COPD (chronic obstructive pulmonary disease) J44.9 COPD type: unspecified COPD Depression F32.89 Depression Type: other depression Physical deconditioning R53.81 Time Spent (min) 35 (1) Alcohol dependence Substance use status: unspecified alcohol-induced disorder Qualified Code(s): F10.29 - Alcohol dependence with unspecified alcohol-induced disorder (2) COPD (chronic obstructive pulmonary disease) COPD type: unspecified COPD Qualified Code(s): J44.9 - Chronic obstructive pulmonary disease, unspecified (3) Depression Depression Type: other depression Qualified Code(s): F32.89 - Other specified depressive episodes
[2022-06-15] MEDS: TOPIRAMATE 100 MG TAB PO SCH (21:43)
[2022-06-15] MEDS: QUEtiapine FUMARATE 25 MG TABLET PO SCH (21:43)
[2022-06-16] MEDS: AMOXICILLIN/CLAVULANATE 875 MG TAB PO SCH ×2 (07:41→16:54)
[2022-06-16] MEDS: POTASSIUM CHLORIDE CRTAB 20 MEQ TABCR PO SCH (07:42)
[2022-06-16] MEDS: SENNA 8.6 MG TAB PO SCH (07:42)
[2022-06-16] MEDS: THIAMINE HCL 100 MG TAB PO SCH (07:42)
[2022-06-16] MEDS: FOLIC ACID 1 MG TAB PO SCH (07:42)
[2022-06-16] MEDS: guaiFENesin 600 MG TABCR PO SCH ×2 (07:42→21:40)
[2022-06-16] MEDS: VORTIOXETINE HYDROBROMIDE PO SCH (07:43)
[2022-06-16] MEDS: NICOTINE 21 MG/24 HR TDSY TD SCH (07:43)
[2022-06-16] MEDS: UMECLIDINIUM/VILANTEROL 62.5/25MCG 7 PUFFS/INHALER INH SCH (07:43)
[2022-06-16] MEDS ORDERED: bisacodyL 10 MG SUPP PR ONE (10:45)
--- NOTE | 2022-06-16 15:05 | Hospitalist Progress Note ---
Date of Service June 16, 2022 Assessment & Plan (1) Alcohol dependence: Plan: 62-year-old female with history of alcohol use disorder presenting with request for detoxification. Patient drinks approximately 2-3 750 mL bottles of wine daily (approximately 15 drinks daily). Last drink was prior to arrival 06/10/2022 evening. Currently on CIWA protocol Patient has very minimal tremors On Librium and Ativan PRN, hasnt required in a couple days Continue Thiamine and Folate (2) Pancytopenia: Plan: Pancytopenia, mostly secondary to bone marrow suppression due to alcoholism Monitor for now CBC tomorrow (3) COPD (chronic obstructive pulmonary disease): Plan: -productive cough, no wheezing on exam, started on Augmentin oxygen dependent, currently oxygen requirement is at the baseline Smoking cessation counseling. Patient further counseled about the dangers of smoking while on oxygen. Continue umeclidinium vilanterol DuoNeb as needed Guaifenesin as needed (4) Depression: Plan: Chronic. Stable. Continue Trintellixpatient will need to bring from home Continue Seroquel 50 mg p.o. nightly Continue Topamax 100 mg p.o. nightly Continue trazodone 100 mg p.o. nightly F/E/NLR at 125 mL/h x 1 L, electrolytes within normal limits. Prophylaxislow risk for DVT Codefull per discussion patient Dispositionadmit to medical telemetry (5) Physical deconditioning: Plan: Patient endorses weakness will consult PT Plan d/c to SNF when accepted Admission and Anticipated Discharge Date Admission Date: June 10, 2022 Subjective patient seen and examined, feels overall better Review of Systems Review of Systems: All systems reviewed are negative, apart from the ones contained in the history. Physical Exam Physical Exam: The patient is awake, alert and oriented 3, well developed and well nourished, normocephalic and atraumatic, lying in bed and in no acute distress. HEENT--PERRL, EOMI, mucous membranes and oropharynx mildly dry Neck--supple. No JVD. No bruits. Thyroid normal, trachea midline, no a denopathy. Heart--normal S1 and S2. No murmurs, rubs or gallops. Lungs--clear bilaterally, no respiratory distress, no accessory muscle use. Abdomen--normal bowel sounds and soft. Mild epigastric and left sided abdominal pain Extremities--no cyanosis or clubbing. No edema. Dermatologic--normal skin turgor, normal color, no abnormal lymph nodes, no rash. Neurologic--tremors Rheumatologic--normal range of motion. Psychiatric--normal affect. Results & Data Results & Data ([facility]) Vital Signs (Past 12 Hours) Vital Signs Temp Pulse Resp BP Pulse Ox O2 Del Method O2 Flow Rate 06/16/22 08:00 Nasal Cannula 2 06/16/22 11:36 97.7 F 86 18 107/73 94 Nasal Cannula 2 06/16/22 06:00 98.4 F 72 20 126/81 94 Nasal Cannula 2 06/16/22 04:00 97.0 F L 70 20 126/85 95 Nasal Cannula 2 PG Care Time/CCT Total # of Minutes Spent Total Time Spent with Patient: Total time spent is greater than 50% in coordination of care (as documented) at patient's floor/unit and/or counseling patient: Coding Level of Care Code 97502 SUB INP/OBS CARE 2/35MIN Diagnoses Alcohol dependence F10.29 Substance use status: unspecified alcohol-induced disorder Pancytopenia D61.818 COPD (chronic obstructive pulmonary disease) J44.9 COPD type: unspecified COPD Depression F32.89 Depression Type: other depression Physical deconditioning R53.81 Time Spent (min) 35 (1) Alcohol dependence Substance use status: unspecified alcohol-induced disorder Qualified Code(s): F10.29 - Alcohol dependence with unspecified alcohol-induced disorder (2) COPD (chronic obstructive pulmonary disease) COPD type: unspecified COPD Qualified Code(s): J44.9 - Chronic obstructive pulmonary disease, unspecified (3) Depression Depression Type: other depression Qualified Code(s): F32.89 - Other specified depressive episodes
[2022-06-16 15:11] LABS: Basophils # (auto) 0.02 K/uL (0-0.2); Basophils % (auto) 0.7 %; Eosinophils # (auto) 0.09 K/uL (0-0.50); Eosinophils % (auto) 2.9 %; Hematocrit (blood only) 38.7 % (37.0-47.0); Hemoglobin 12.8 g/dl (12.0-16.0); Immature Granulocytes # (auto) 0.02 K/uL (0.01-0.20); Immature Granulocytes % (auto) 0.7 %; Lymphocytes # (auto) 0.81 K/uL (1.2-3.4); Lymphocytes % (auto) 26.5 %; Mean Corpuscular Hemoglobin 33.3 pg (25.0-34.0); Mean Corpuscular Hgb Conc 33.1 g/dL (32.0-36.0); Mean Corpuscular Volume 100.8 fL (80.0-100.0); Mean Platelet Volume 9.7 fL (9.4-12.4); Monocytes % (auto) 16.3 %; Neutrophils # (auto) 1.62 K/uL (1.40-6.50); Neutrophils % (auto) 52.9 %; Platelet Count 125 K/uL (130-400); RDW Coefficient of Variation 11.9 % (11.5-14.5); RDW Standard Deviation 44.1 fL (36.4-46.3); Red Blood Count 3.84 M/uL (4.20-5.40); White Blood Count 3.06 K/ul (4.8-10.8)
[2022-06-16 15:12] LABS: Albumin Globulin Ratio 1.3 (0.9-2); Albumin Level 3.7 gm/dl (3.4-5.0); BUN Creatinine Ratio 27.1 (10-20); Bilirubin,Total 0.3 mg/dl (0.2-1.0); Creatinine Clr Calc Pharmacy 96.5 ml/min; Est GFR (Non-African American) 104.4 ml/min; Globulin 2.8 gm/dl (2.5-4.0); Potassium 4.1 mmol/L (3.5-5.1); Total Protein 6.5 gm/dl (6.0-8.3)
[2022-06-16] MEDS: TOPIRAMATE 100 MG TAB PO SCH (21:39)
[2022-06-16] MEDS: ACETAMINOPHEN 325 MG TAB PO PRN (21:40)
[2022-06-16] MEDS: QUEtiapine FUMARATE 25 MG TABLET PO SCH (21:40)
[2022-06-17] MEDS: ACETAMINOPHEN 325 MG TAB PO PRN (02:40)
[2022-06-17] MEDS: AMOXICILLIN/CLAVULANATE 875 MG TAB PO SCH ×2 (08:44→17:17)
[2022-06-17] MEDS: SENNA 8.6 MG TAB PO SCH (08:44)
[2022-06-17] MEDS: guaiFENesin 600 MG TABCR PO SCH ×2 (08:44→20:22)
[2022-06-17] MEDS: POTASSIUM CHLORIDE CRTAB 20 MEQ TABCR PO SCH (08:45)
[2022-06-17] MEDS: UMECLIDINIUM/VILANTEROL 62.5/25MCG 7 PUFFS/INHALER INH SCH (08:45)
[2022-06-17] MEDS: NICOTINE 21 MG/24 HR TDSY TD SCH (08:45)
[2022-06-17] MEDS: FOLIC ACID 1 MG TAB PO SCH (08:45)
[2022-06-17] MEDS: VORTIOXETINE HYDROBROMIDE PO SCH (08:45)
[2022-06-17] MEDS: THIAMINE HCL 100 MG TAB PO SCH (08:45)
--- NOTE | 2022-06-17 13:52 | Hospitalist Progress Note ---
Date of Service June 17, 2022 Assessment & Plan (1) Alcohol dependence: Plan: 62-year-old female with history of alcohol use disorder presenting with request for detoxification. Patient drinks approximately 2-3 750 mL bottles of wine daily (approximately 15 drinks daily). Last drink was prior to arrival 06/10/2022 evening. Currently on CIWA protocol Patient has very minimal tremors On Librium and Ativan PRN, hasnt required in a couple days Continue Thiamine and Folate (2) Pancytopenia: Plan: Pancytopenia, mostly secondary to bone marrow suppression due to alcoholism Monitor for now CBC tomorrow (3) COPD (chronic obstructive pulmonary disease): Plan: -productive cough, no wheezing on exam, started on Augmentin oxygen dependent, currently oxygen requirement is at the baseline Smoking cessation counseling. Patient further counseled about the dangers of smoking while on oxygen. Continue umeclidinium vilanterol DuoNeb as needed Guaifenesin as needed (4) Depression: Plan: Chronic. Stable. Continue Trintellixpatient will need to bring from home Continue Seroquel 50 mg p.o. nightly Continue Topamax 100 mg p.o. nightly Continue trazodone 100 mg p.o. nightly F/E/NLR at 125 mL/h x 1 L, electrolytes within normal limits. Prophylaxislow risk for DVT Codefull per discussion patient (5) Physical deconditioning: Plan: Patient endorses weakness will consult PT (6) Abnormal LFTs: Plan: from alcohol abuse will monitor Plan d/c to SNF when accepted Admission and Anticipated Discharge Date Admission Date: June 10, 2022 Subjective patient seen and examined, feels overall better, but still feels very weak Review of Systems Review of Systems: All systems reviewed are negative, apart from the ones contained in the history. Physical Exam Physical Exam: The patient is awake, alert and oriented 3, well developed and well nourished, normocephalic and atraumatic, lying in bed and in no acute distress. HEENT--PERRL, EOMI, mucous membranes and oropharynx mildly dry Neck--supple. No JVD. No bruits. Thyroid normal, trachea midline, no adenopathy. Heart--normal S1 and S2. No murmurs, rubs or gallops. Lungs--clear bilaterally, no respiratory distress, no accessory muscle use. Abdomen--normal bowel sounds and soft. Mild epigastric and left sided abdominal pain Extremities--no cyanosis or clubbing. No edema. Dermatologic--normal skin turgor, normal color, no abnormal lymph nodes, no rash. Neurologic--tremors Rheumatologic--normal range of motion. Psychiatric--normal affect. Results & Data Results & Data ([facility]) Vital Signs (Past 12 Hours) Vital Signs Temp Pulse Resp BP Pulse Ox O2 Del Method O2 Flow Rate 06/17/22 11:23 98.4 F 81 18 127/79 94 Nasal Cannula 2 06/17/22 09:00 Nasal Cannula 2 06/17/22 07:26 97.7 F 69 18 105/70 95 Nasal Cannula 2 06/17/22 03:09 97.3 F L 79 18 107/72 93 Nasal Cannula 2 PG Care Time/CCT Total # of Minutes Spent Total Time Spent with Patient: Total time spent is greater than 50% in coordination of care (as documented) at patient's floor/unit and/or counseling patient: Coding Level of Care Code 32993 SUB INP/OBS CARE 2/35MIN Diagnoses Alcohol dependence F10.29 Substance use status: unspecified alcohol-induced disorder Pancytopenia D61.818 COPD (chronic obstructive pulmonary disease) J44.9 COPD type: unspecified COPD Depression F32.89 Depression Type: other depression Physical deconditioning R53.81 Abnormal LFTs R94.5 Time Spent (min) 35 (1) Alcohol dependence Substance use status: unspecified alcohol-induced disorder Qualified Code(s): F10.29 - Alcohol dependence with unspecified alcohol-induced disorder (2) COPD (chronic obstructive pulmonary disease) COPD type: unspecified COPD Qualified Code(s): J44.9 - Chronic obstructive pulmonary disease, unspecified (3) Depression Depression Type: other depression Qualified Code(s): F32.89 - Other specified depressive episodes
[2022-06-17] MEDS: TOPIRAMATE 100 MG TAB PO SCH (20:23)
[2022-06-17] MEDS: QUEtiapine FUMARATE 25 MG TABLET PO SCH (20:23)
[2022-06-17] MEDS: traZODone HCL 50 MG TAB PO PRN (21:46)
[2022-06-18] MEDS: ACETAMINOPHEN 325 MG TAB PO PRN (06:01)
[2022-06-18] MEDS: VORTIOXETINE HYDROBROMIDE PO SCH (07:47)
[2022-06-18] MEDS: AMOXICILLIN/CLAVULANATE 875 MG TAB PO SCH (07:48)
[2022-06-18] MEDS: UMECLIDINIUM/VILANTEROL 62.5/25MCG 7 PUFFS/INHALER INH SCH (07:48)
[2022-06-18] MEDS: SENNA 8.6 MG TAB PO SCH (07:48)
[2022-06-18] MEDS: THIAMINE HCL 100 MG TAB PO SCH (07:48)
[2022-06-18] MEDS: FOLIC ACID 1 MG TAB PO SCH (07:48)
[2022-06-18] MEDS: guaiFENesin 600 MG TABCR PO SCH (07:48)
[2022-06-18] MEDS: POTASSIUM CHLORIDE CRTAB 20 MEQ TABCR PO SCH (07:48)
[2022-06-18] MEDS: NICOTINE 21 MG/24 HR TDSY TD SCH (07:49)
--- NOTE | 2022-06-18 13:02 | Discharge Summary ---
Date of Service June 18, 2022 Admission HPI Per Admitting Provider Lakeisha Aguirre is a 62-year-old female with history of alcohol use disorder, hepatitis and COPD on 2 L of home oxygen as well as depression presenting with request for alcohol detoxification. Patient has been drinking for many years. Was recently sober for several months over the summer however, now continues to drink. She drinks 2-3 750 mL bottles of wine daily. Her last drink was immediately prior to arrival to the ER this evening 06/10/2022. She reports abdominal bloating, and decreased appetite. Reports when she wakes in the morning she does have shakes, nausea and dry heaves which is relieved by drinking. She has history of minor withdrawal symptoms. No DTs or seizures. Additionally, she reports she has been smoking more lately. She smokes approximately 1-1/2 packs/day. She reports worsening of her cough and thickening of her sputum over the last week. Denies fevers, chills, night sweats. Denies abdominal pain. No additional complaints at this time. Upon arrival to the ER patient is afebrile, hemodynamically stable, stable respiratory status on her baseline 2 L of oxygen. She reports that this time she does not feel like she is going through withdrawal symptoms however, does anticipate feeling shaky in the morning. ER course: Banana bag Principal Diagnosis alcohol withdrawal Discharge Exam The patient is awake, alert and oriented 3, well developed and well nourished, normocephalic and atraumatic, lying in bed and in no acute distress. HEENT--PERRL, EOMI, mucous membranes and oropharynx mildly dry Neck--supple. No JVD. No bruits. Thyroid normal, trachea midline, no adenopathy. Heart--normal S1 and S2. No murmurs, rubs or gallops. Lungs--clear bilaterally, no respiratory distress, no accessory muscle use. Abdomen--normal bowel sounds and soft. Mild epigastric and left sided abdominal pain Extremities--no cyanosis or clubbing. No edema. Dermatologic--normal skin turgor, normal color, no abnormal lymph nodes, no rash. Neurologic--tremors Rheumatologic--normal range of motion. Psychiatric--normal affect. Discharge Data Allergies Allergy/AdvReac Type Severity Reaction Status Date / Time RACIEL Inhibitors AdvReac Intermediate COUGH Verified 11/14/21 15:17 naltrexone [From Vivitrol] AdvReac Intermediate Hair Verified 11/14/21 15:17 loss/ingrown hairs over body Consultations 06/10/22 23:55 ED Decision to Admit Stat 06/16/22 11:15 Consult Podiatry Routine Hospital Course (1) Alcohol dependence: 62-year-old female with history of alcohol use disorder presenting with request for detoxification. Patient drinks approximately 2-3 750 mL bottles of wine daily (approximately 15 drinks daily). Last drink was prior to arrival 06/10/2022 evening. Currently on CIWA protocol Patient has very minimal tremors On Librium and Ativan PRN, hasnt required in a couple days Continue Thiamine and Folate (2) Pancytopenia: Pancytopenia, mostly secondary to bone marrow suppression due to alcoholism Monitor for now CBC tomorrow (3) COPD (chronic obstructive pulmonary disease): -productive cough, no wheezing on exam, started on Augmentin oxygen dependent, currently oxygen requirement is at the baseline Smoking cessation counseling. Patient further counseled about the dangers of smoking while on oxygen. Continue umeclidinium vilanterol DuoNeb as needed Guaifenesin as needed (4) Depression: Chronic. Stable. Continue Trintellixpatient will need to bring from home Continue Seroquel 50 mg p.o. nightly Continue Topamax 100 mg p.o. nightly Continue trazodone 100 mg p.o. nightly F/E/NLR at 125 mL/h x 1 L, electrolytes within normal limits. Prophylaxislow risk for DVT Codefull per discussion patient (5) Physical deconditioning: Patient endorses weakness will consult PT (6) Abnormal LFTs: from alcohol abuse will monitor Plan d/c to Rehab Total Time Total Time Spent Total Time Spent (In Minutes): 35 Discharge Plan Discharge Items Patient Disposition: Transfer Inpatient Rehab Fac Reason For Visit: ETOH DETOX REQUEST Discharge Diagnosis: Alcohol abuse, withdrawal Activity: Resume your previous activity Non-emergency contact: Primary Care Provider Call non-emergency contact if: you have any medication questions Follow-up/Referrals: Whit Martinez MD [Primary Care Provider] - Diet: Regular Addtl Attending Provider Instructions: please make appointment to follow up with your regular PCP and also endeavor to abstain from alcohol Pending Studies at Discharge: No Stand-Alone Forms: My [facility] Skilled Items Patient informed of condition?: Yes DNR: No Discharge Level of Care: Acute rehab Communicable Disease: No Discharge Prognosis: Stable Lines: None Urinary Catheter: No Medications and DC Order Prescriptions: Continued Anoro Ellipta 62.5-25 mcg/actuation blister with device 1 inh INH QAM Qty: 60 11RF topiramate 25 mg tablet 100 mg PO HS quetiapine 50 mg tablet 50 mg PO HS Trintellix 10 mg tablet 20 mg PO DAILY trazodone 100 mg tablet 100 mg PO HS PRN (Reason: Sleep) Discharge Orders: Discharge Order (Routine); Ordered 06/18/22 Ordered By: Moriah Shafer Admission Data Admit Date/Time: 06/10/22 23:39 Attending Provider: Moriah Shafer Admit Provider: Indy Hernandez Primary Care Provider: Whit Martinez Other Providers: Indy Hernandez ; [facility] ; Igor Walker Other Interventions: Discharge Summary Assessment (RN) Last Done: 06/18/22 12:21 Coding Level of Care Code HOSP INP/OBS DISCH >30 MIN Diagnoses Alcohol dependence F10.29 Substance use status: unspecified alcohol-induced disorder Pancytopenia D61.818 COPD (chronic obstructive pulmonary disease) J44.9 COPD type: unspecified COPD Depression F32.89 Depression Type: other depression Physical deconditioning R53.81 Abnormal LFTs R94.5 Time Spent (min) 35
== END 2022-06-18 13:21 | DRG 897 ==
LOC: ED 20:43 → SUATTDRO 23:39 → 2W 23:39

== ENCOUNTER 2024-08-03 14:29 | Inpatient (IN) ==
--- NOTE | 2024-08-03 16:17 | Electrocardiogram Report ---
Test Reason : Blood Pressure : */* mmHG Vent. Rate : 74 BPM Atrial Rate : 74 BPM P-R Int : 176 ms QRS Dur : 64 ms QT Int : 394 ms P-R-T Axes : 86 70 51 degrees QTcB Int : 437 ms Normal sinus rhythm Septal infarct , age undetermined Abnormal ECG When compared with ECG of 21-Jan-2023 13:41, Premature ventricular complexes are no longer Present Confirmed by Wilman De La Rosa ([id number]) on 08/03/2024 4:16:49 PM Referred By: REFERRED SELF Confirmed By: Wilman De La Rosa
--- NOTE | 2024-08-03 16:26 | XRay Report ---
EXAM: X-ray chest one-view portable CLINICAL HISTORY: Chest pain PRIORS: 01/21/2013 TECHNIQUE: Frontal view chest FINDINGS: The chest is hyperexpanded. No airspace consolidation, effusion or congestive changes. Heart size is normal. No pneumothorax. Moderate to large hiatal hernia noted. Trachea is patent. Moderate atherosclerotic disease of the abdominal aorta. Osseous structures demonstrate no acute abnormality. No radiopaque foreign body. IMPRESSION: No plain film evidence of an acute cardiopulmonary process. Electronically signed by Gloria Martino 08-03-2024 4:24 PM
[2024-08-03 16:52] LABS: Basophils # (auto) 0.02 K/uL (0.00-0.20); Basophils % (auto) 0.5 %; Eosinophils # (auto) 0.01 K/uL (0.00-0.50); Eosinophils % (auto) 0.3 %; Hemoglobin 13.4 g/dl (12.0-16.0); Immature Granulocytes # (auto) 0.01 K/uL (0.01-0.20); Immature Granulocytes % (auto) 0.3 %; Lymphocytes # (auto) 0.64 K/uL (1.20-3.40); Lymphocytes % (auto) 16.5 %; Mean Corpuscular Hemoglobin 33.8 pg (25.0-34.0); Mean Corpuscular Hgb Conc 35.3 g/dL (32.0-36.0); Mean Platelet Volume 8.6 fL (9.4-12.4); Monocytes # (auto) 0.52 K/uL (0.11-0.59); Monocytes % (auto) 13.4 %; Neutrophils # (auto) 2.68 K/uL (1.40-6.50); Platelet Count 127 K/uL (130-400); RDW Coefficient of Variation 11.9 % (11.5-14.5); RDW Standard Deviation 42.1 fL (36.4-46.3); Red Blood Count 3.96 M/uL (4.20-5.40); White Blood Count 3.88 K/ul (4.8-10.8)
[2024-08-03 17:03] LABS: Alanine Aminotransferase 10 U/L (7-52); Albumin Globulin Ratio 1.7 (0.9-2); Albumin Level 4.4 gm/dl (3.4-5.0); Alkaline Phosphatase 65 U/L (34-104); Anion Gap 12 (3-11); Aspartate Aminotransferase 25 U/L (13-39); BUN Creatinine Ratio 15.6 (10-20); Bilirubin,Total 0.4 mg/dl (0.2-1.0); Blood Urea Nitrogen 5 mg/dl (6-23); Calcium 9.5 mg/dl (8.6-10.3); Carbon Dioxide 28 mmol/L (21-32); Chloride 87 mmol/L (98-107); Globulin 2.6 gm/dl (2.5-4.0); Glucose 68 mg/dl (70-99(Fasting)); Lipase 30 U/L (11-82); Potassium 4.5 mmol/L (3.5-5.1); Sodium 127 mmol/L (136-145)
[2024-08-03 17:06] LABS: Troponin I High Sensitivity < 2.3 pg/ml (0-14)
--- NOTE | 2024-08-03 17:42 | Emergency Department Note ---
Impression & Plan Acute hyponatremia, Acute alcoholism, Physical deconditioning, Failure to thrive in adult ED Provider Note NAME: CHET ZAVALETA AGE: 64 SEX: F : 1960 ARRIVES VIA: Walk-In INFORMANT: Patient, ED PROVIDER(S): Geovanna Horton MD CHIEF COMPLAINT: Cough, shortness of breath, anxiety HPI: This is a 64-year-old female sent for cough, shortness of breath anxiety. Patient states that she has been drinking more the past few days. She notes that her breathing has been somewhat off. She notes she is having panic attacks for last few days as well. She reports no chest pain, fevers or chills. She has not for any nausea vomiting. She states she has not gone more than 1 day without drinking for the past 2 years. She cages plus marijuana as well. She otherwise notes no previous alcohol withdrawal seizures. She does not know what happens when she stops drinking. ROS: See above HPI for pertinent positives & negatives. A total of 10 systems reviewed and were otherwise negative. PAST MEDICAL HISTORY: See Below PAST SURGICAL HISTORY: See Below FAMILY HISTORY: See Below SOCIAL HISTORY: See Below HOME MEDICATIONS: See Below ALLERGIES: See Below VITALS: See Below PHYSICAL EXAMINATION: General: Thin, cachectic Head: Normocephalic and atraumatic Eyes: Normal inspection, extraocular muscles intact Ear, nose, throat: Normal external exam Neck: Normal range of motion Respiratory: lungs clear to auscultation bilaterally Cardiovascular: Regular rate/rhythm, no murmur GI: soft, nontender, no guarding or rebound Extremities: nontender, moves all extremities Neuro: The patient awake and alert, appropriately conversive, no focal deficits, symmetric faces Skin: Warm, dry, and intact MEDICAL DECISION MAKING: This is a 64-year-old female presenting for cough, shortness of breath/anxiety. Patient currently states she does not feel well with diarrhea, shortness of breath and cough. She reports no chest pain. No pleurisy. Low concern for PE clinically. She currently wears 2 L for COPD. -Chest Xray independently interpreted by me showing no pneumothorax, focal opacity, or pleural effusions. -Blood work reveals no leukocytosis, does show hyponatremia however. Low creatinine otherwise. -This time she will require due to her hyponatremia, concern for alcohol induced hyponatremia as well as concern for alcohol withdrawal. -Discussed care with hospitalist service Differential diagnosis: COPD, pneumonia, dehydration, alcohol withdrawal Independent History obtained from: Diagnostics interpreted by me: ECG: ECG independently interpreted by me with normal sinus rhythm, rate of 74, normal WA, normal QRS, normal QTc, no ST segment elevations consistent with STEMI criteria Cardiac Monitoring: An order was placed for continuous cardiac monitoring. The monitor shows a rate of 90 with sinus rhythm. Past Med/Surg History Problem List (Updated 08/04/24 @ 18:45 by Geovanna Horton MD) Acute hyponatremia (Acute) Failure to thrive in adult (Acute) Alcoholism Encounter for pre-operative examination Low back pain (Acute) Bronchitis Constipation (Acute) Pneumonia Left lower lobe pneumonia (Acute) Severe sepsis Sepsis (Acute) Hypoxia (Acute) Parapneumonic effusion Pneumonia (Acute) Shortness of breath (Acute) ADHD Sleep disturbance Alcohol dependence (Acute) COPD exacerbation (Acute) Pancytopenia Tobacco abuse Hiatal hernia Respiratory failure (Acute) Abnormal LFTs (Acute) Acute alteration in mental status (Acute) Elevated troponin Elevated troponin (Acute) Metabolic alkalosis Acute on chronic respiratory failure with hypoxia and hypercapnia COPD with emphysema Chronic bronchitis Chronic respiratory failure with hypoxia and hypercapnia Hypersomnia Encounter for pre-operative examination Iron deficiency anemia Current smoker COPD (chronic obstructive pulmonary disease) Pre-op testing Acute dyspnea (Acute) COPD (chronic obstructive pulmonary disease) (Acute) Respiratory failure (Acute) SVT (supraventricular tachycardia) (Acute) Chronic respiratory failure with hypoxia, on home oxygen therapy (Acute) Anemia Avascular necrosis of femoral head Pulmonary nodule Chest pain Tobacco dependence Anemia (Acute) Alcohol use (Acute) Acute dehydration (Acute) Weakness (Acute) Acute alcoholism (Acute) Pancytopenia Physical deconditioning (Acute) Multiple pulmonary nodules Atelectasis of left lung Emphysema of lung Ascites (Acute) Sepsis due to Streptococcus pneumoniae hx of Depression Tachycardia (Acute 08/17/13) COPD (chronic obstructive pulmonary disease) (Chronic) inhaler daily/prn Asthma (Chronic) Jaundice (Acute) Leukocytosis (Acute 04/21/14) Alcoholic hepatitis (Chronic) Medical History (Updated 08/04/24 @ 18:45 by Geovanna Horton MD) Unintentional weight loss 35 lb wt loss over past year Poor appetite Hiatal hernia Anemia Anxiety reason for depakote Sleep apnea pt denies On home oxygen therapy 1-2L N/C prn Surgical History History of ovarian cystectomy History of colonoscopy History of tooth extraction History of bronchoscopy S/P removal of ovarian cyst Family History Father Myocardial infarction Hypertension Other No family history of adverse response to anesthesia Social History Smoking Status: Heavy tobacco smoker Tobacco Type: Cigars Cigarettes Per Day: 20; Second Hand Exposure: Yes; Do You Dip or Chew Tobacco: No; Hx Alcohol Use: Yes Alcohol type: wine Alcohol Intake Frequency Comment: 500 ml a day Hx Substance Use: No Preferred Language: Slovenian Communication Ability: Effective 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: No Beliefs That Will Affect Care: None marital status: Current Living Situation: Spouse How many Children do You have: 3 Feels Safe at Home: Yes Assistive Devices: BiPap and Oxygen - Continuous Allergies Allergies Allergy/AdvReac Type Severity Reaction Status Date / Time RACIEL Inhibitors AdvReac Intermediate COUGH Verified 09/05/23 14:16 naltrexone [From Vivitrol] AdvReac Intermediate Hair Verified 09/05/23 14:16 loss/ingrown hairs over body Home Meds Home Medications Medication Instructions Recorded Confirmed mirtazapine 30 mg tablet (Remeron) 30 mg PO HS 09/05/23 08/03/24 trazodone 100 mg tablet 200 mg PO HS 09/05/23 08/03/24 topiramate 100 mg tablet 100 mg PO HS 08/03/24 08/03/24 Previous Rx's Medication Instructions Recorded albuterol sulfate 90 mcg/actuation 2 puff inhalation Q6H PRN 09/10/23 aerosol inhaler Shortness Of Breath Or Wheezing #18 grams fluticasone fur. 100 mcg-umeclid 1 inh inhalation DAILY #60 ea 09/20/23 62.5 mcg-vilant 25 mcg inhalat.powder (Trelegy Ellipta) Results & Data (ED) Vital Signs Vital Signs - 24 hr 08/03/24 18:55 08/03/24 19:00 08/03/24 19:30 Pulse Rate 84 73 72 Pulse Rate from SpO2 Sensor 74 71 Respiratory Rate 23 22 Blood Pressure 129/76 122/67 Blood Pressure Mean 93 85 Pulse Oximetry 99 98 08/03/24 20:24 08/03/24 21:00 Pulse Rate 78 65 Pulse Rate from SpO2 Sensor 78 65 Respiratory Rate 19 14 Blood Pressure 107/71 131/78 Blood Pressure Mean 83 95 Pulse Oximetry 96 97 Laboratory Data 08/04/24 07:11 08/04/24 07:11 Lab Results 08/03/24 08/03/24 Range/Units 16:32 16:44 WBC 3.88 L (4.8-10.8) K/ul RBC 3.96 L (4.20-5.40) M/uL Hgb 13.4 (12.0-16.0) g/dl Hct 38.0 (37.0-47.0) % MCV 96.0 (80.0-100.0) fL MCH 33.8 (25.0-34.0) pg MCHC 35.3 (32.0-36.0) g/dL RDW Std Deviation 42.1 (36.4-46.3) fL RDW Coeff of Don 11.9 (11.5-14.5) % Plt Count 127 L (130-400) K/uL MPV 8.6 L (9.4-12.4) fL Immature Gran % (Auto) 0.3 % Neut % (Auto) 69.0 % Lymph % (Auto) 16.5 % [place] % (Auto) 13.4 % Eos % (Auto) 0.3 % Baso % (Auto) 0.5 % Neut # (Auto) 2.68 (1.40-6.50) K/uL Lymph # (Auto) 0.64 L (1.20-3.40) K/uL [place] # (Auto) 0.52 (0.11-0.59) K/uL Eos # (Auto) 0.01 (0.00-0.50) K/uL Baso # (Auto) 0.02 (0.00-0.20) K/uL Immature Gran # (Auto) 0.01 (0.01-0.20) K/uL Sodium 127 L (136-145) mmol/L Potassium 4.5 (3.5-5.1) mmol/L Chloride 87 L (98-107) mmol/L Carbon Dioxide 28 (21-32) mmol/L Anion Gap 12 H (3-11) BUN 5 L (6-23) mg/dl Creatinine 0.32 L (0.6-1.2) mg/dl Est Cr Clr Drug Dosing Not Reportable eGFR 115.83 BUN/Creatinine Ratio 15.6 (10-20) Glucose 68 L (70-99(Fasting)) mg/dl Osmolality 264 L (280-300) mOsm/kg Calcium 9.5 (8.6-10.3) mg/dl Total Bilirubin 0.4 (0.2-1.0) mg/dl AST 25 (13-39) U/L ALT 10 (7-52) U/L Alkaline Phosphatase 65 (34-104) U/L Troponin I High Sens < 2.3 (0-14) pg/ml Total Protein 7.0 (6.0-8.3) gm/dl Albumin 4.4 (3.4-5.0) gm/dl Globulin 2.6 (2.5-4.0) gm/dl Albumin/Globulin Ratio 1.7 (0.9-2) Lipase 30 (11-82) U/L Ethyl Alcohol mg/dL < 10.0 (<10.0) mg/dl Adenovirus (PCR) Not Detected (NotDetected) B. pertussis DNA (PCR) Not Detected (NotDetected) B.parapertussis DNA PCR Not Detected (NotDetected) C. pneumoniae DNA (PCR) Not Detected (NotDetected) Coronavirus OC43 (PCR) Not Detected (NotDetected) Coronavirus HKU1 (PCR) Not Detected (NotDetected) Coronavirus 229E (PCR) Not Detected (NotDetected) SARS-CoV-2 (PCR) Not Detected (NotDetected) Coronavirus NL63 (PCR) Not Detected (NotDetected) Human Metapneumovir PCR Not Detected (NotDetected) Influenza Type A (PCR) Not Detected (NotDetected) Influenza Type B (PCR) Not Detected (NotDetected) M. pneumoniae (PCR) Not Detected (NotDetected) Parainfluenza 1 (PCR) Not Detected (NotDetected) Parainfluenza 2 (PCR) Not Detected (NotDetected) Parainfluenza 3 (PCR) Not Detected (NotDetected) Parainfluenza 4 (PCR) Not Detected (NotDetected) RSV (PCR) Not Detected (NotDetected) Entero/Rhino (PCR) Not Detected (NotDetected) Administered Medications Acetaminophen (Acetaminophen 325 Mg Tab) 650 mg PO Q4H PRN PRN Reason: Pain or Fever Stop: 09/02/24 23:38 Last Admin: 08/04/24 18:24 Dose: 650 mg Documented By: ESMarquise Chlordiazepoxide HCl (Chlordiazepoxide Hcl 25 Mg Cap) 25 mg PO Q8H [facility] Stop: 08/05/24 16:01 Last Admin: 08/04/24 06:00 Dose: 25 mg Documented By: JORDI Enoxaparin Sodium (Enoxaparin Inj 30 Mg/0.3 Ml Syr) 30 mg SQ QAM [facility] Stop: 09/03/24 08:59 Last Admin: 08/04/24 09:22 Dose: 30 mg Documented By: DANIELLE Fluticasone Furoate (Fluticasone Furoate 100mcg 14 Puffs/Inhaler) 1 puffs INH DAILY [facility] Stop: 09/03/24 08:59 Last Admin: 08/04/24 09:23 Dose: 1 puffs Documented By: ESMarquise Folic Acid (Folic Acid 1 Mg Tab) 1 mg PO QAM [facility] Stop: 09/03/24 08:59 Last Admin: 08/04/24 09:23 Dose: 1 mg Documented By: DANIELLE Sodium Chloride (Nss) 1,000 mls @ 80 mls/hr IV .[id number] [facility] Stop: 08/05/24 04:29 Last Admin: 08/04/24 16:22 Dose: 80 mls/hr Documented By: DANIELLE Miscellaneous (Remove Nicoderm Patch) 1 each N/A DAILY@0859 [facility] Stop: 09/03/24 08:58 Last Admin: 08/04/24 09:20 Dose: 1 each Documented By: DANIELLE Nicotine (Nicotine 21 Mg/24 Hr Tdsy) 1 patch TD DAILY [facility] Stop: 09/03/24 00:34 Last Admin: 08/04/24 09:25 Dose: 1 patch Documented By: Admin: 08/04/24 00:41 Dose: 1 patch Documented By: JORDI Thiamine HCl (Thiamine Hcl 100 Mg Tab) 100 mg PO QAM [facility] Stop: 09/03/24 08:59 Last Admin: 08/04/24 09:25 Dose: 100 mg Documented By: DANIELLE Umeclidinium/Vilanterol (Umeclidinium/Vilanterol 62.5/25mcg 7 Puffs/Inhaler) 1 puffs INH DAILY [facility] Stop: 09/03/24 08:59 Last Admin: 08/04/24 09:25 Dose: 1 puffs Documented By: ESMarquise Discontinued Medications Albuterol (Albut/Ipratrop 3mg/0.5mg Neb 3 Ml Vial) 3 ml NEB QIDR PRN; Protocol PRN Reason: Shortness Of Breath Or Wheezing Stop: 09/02/24 23:38 Last Admin: 08/04/24 00:25 Dose: 3 ml Documented By: AHSAN Chlordiazepoxide HCl (Chlordiazepoxide Hcl 25 Mg Cap) 25 mg PO Q6H [facility] Stop: 08/04/24 18:01 Last Admin: 08/04/24 17:15 Dose: 25 mg Documented By: Admin: 08/04/24 12:13 Dose: 25 mg Documented By: Admin: 08/04/24 06:00 Dose: 25 mg Documented By: Admin: 08/04/24 00:41 Dose: 25 mg Documented By: AES Folic Acid 1 mg/ Syringe 10 mls @ 5 mls/min IV NOW STA Stop: 08/03/24 21:31 Last Admin: 08/03/24 22:29 Dose: 5 mls/min Documented By: PONCHO Thiamine HCl 100 mg/ Syringe 10 mls @ 2 mls/min IV NOW STA Stop: 08/03/24 21:51 Last Admin: 08/03/24 22:30 Dose: 2 mls/min Documented By: SHCam Dextrose/Sodium Chloride (D5w And 1/2nss) 1,000 mls @ 100 mls/hr IV .Q10H [facility] Stop: 08/04/24 09:38 Last Infusion: 08/04/24 09:46 Dose: Infused Documented By: ESMarquise Admin: 08/04/24 01:03 Dose: 100 mls/hr Documented By: AES Miscellaneous (Patient's Height &/Or Weight Needed) 1 each N/A NOW STA Stop: 08/03/24 23:54 Last Admin: 08/03/24 23:57 Dose: 1 each Documented By: AES Imaging Data Radiologist's Impression: Chest X-Ray 08/03/24 15:17 EXAM: X-ray chest one-view portable CLINICAL HISTORY: Chest pain PRIORS: 01/21/2013 TECHNIQUE: Frontal view chest FINDINGS: The chest is hyperexpanded. No airspace consolidation, effusion or congestive changes. Heart size is normal. No pneumothorax. Moderate to large hiatal hernia noted. Trachea is patent. Moderate atherosclerotic disease of the abdominal aorta. Osseous structures demonstrate no acute abnormality. No radiopaque foreign body. IMPRESSION: No plain film evidence of an acute cardiopulmonary process. Electronically signed by Gloria Martino 08-03-2024 4:24 PM Discharge Plan Visit Data Chief Complaint: Anxiety Stated Complaint: NO APPETITE, DRINKING/ALCOHOL, SOB/PANIC ATTACKS ED Provider: Geovanna Horton Discharge Problem: Acute hyponatremia, Acute alcoholism, Physical deconditioning, Failure to thrive in adult Patient Disposition: Admitted As Inpatient Discharge Instructions Interventions: ED Discharge Assessment Last Done: 08/03/24 23:08
[2024-08-03 17:49] LABS: Adenovirus PCR Not Detected (NotDetected); Bordetella parapertussis PCR Not Detected (NotDetected); Bordetella pertussis PCR Not Detected (NotDetected); Chlamydia pneumoniae PCR Not Detected (NotDetected); Coronavirus 229E PCR Not Detected (NotDetected); Coronavirus CoV-2 (COVID19)PCR Not Detected (NotDetected); Coronavirus HKU1 PCR Not Detected (NotDetected); Coronavirus NL63 PCR Not Detected (NotDetected); Coronavirus OC43PCR Not Detected (NotDetected); Human Metapneumovirus PCR Not Detected (NotDetected); Influenza A PCR Not Detected (NotDetected); Influenza B PCR Not Detected (NotDetected); Mycoplasma pneumoniae PCR Not Detected (NotDetected); Parainfluenza Virus 1 PCR Not Detected (NotDetected); Parainfluenza Virus 2 PCR Not Detected (NotDetected); Parainfluenza Virus 3 PCR Not Detected (NotDetected); Parainfluenza Virus 4 PCR Not Detected (NotDetected); Respiratory Syncytial VirusPCR Not Detected (NotDetected); Rhinovirus/Enterovirus PCR Not Detected (NotDetected)
--- NOTE | 2024-08-03 20:24 | History & Physical Report ---
"Date of Service August 03, 2024 Assessment & Plan (1) Pancytopenia: (2) COPD with emphysema: (3) Alcohol use disorder: (4) Failure to thrive in adult: (5) Depression: (6) Pancytopenia: Plan Hyponatremia -Na 127 on arrival, suspect secondary to alcohol use/beer potomania. Notes about 1 week of looser stools, denies true diarrhea. -Urine and serum osmolality pending. Anion gap mildly elevated at 12 -Poor PO intake for extended period. Ordered IVF x1L as below -Repeat metabolic panel ordered for 00:00, recheck with a.m. labs Alcohol Use Disorder -Alcohol level negative on arrival, last reported drink was morning of 08/03 -Reports drinking approximately 2 bottles of wine daily -AWSS protocol ordered with Librium taper, IV Ativan as needed -Ordered Folic Acid, Thiamine Malnutrition/Failure to Thrive -Decreasing PO intake of food and liquids over weeks to months -Hypoglycemic on arrival with BSG 68 -Will order 1L of D5W 1/2 NSS, encourage adequate PO intake -Dietitian consult ordered, appreciate recommendations -Restart Mirtazapine (has been out of medications for several weeks) -Ordered PT/OT evaluations Depression and Anxiety -Out of home psychiatric medications for several weeks, reports increasing frequency of panic attacks -History of SI, denies current suicidal ideation -Restart Trazodone, Mirtazapine, Topiramate -Will need close follow up with psychiatry and PCP after discharge COPD with Emphysema | Chronic Hypoxic Respiratory Failure -Continue Trelegy. Duonebs PRN -Baseline oxygen requirement at home is 2L NC, currently 98% on 2L NC -CXR in ED without evidence of acute process. Respiratory biofire negative. -Denies dyspnea at rest, suspect some degree of dyspnea secondary to panic attacks as above. -BiPAP ordered HS, patient states she doesn't always use this because the set up and mask are difficult for her to use Pancytopenia -WBC 3.88, RBC 3.96, platelets 127 -Chronic per prior admissions, likely due to bone marrow suppression from alcohol use -Monitor daily CBC Admit to: Med/tele VTE Prophylaxis: Lovenox Diet: Regular Code Status: Full Code History of Present Illness Primary Care Provider: Jamila Benjamin MD Lakeisha Aguirre is a 64 year-old female who presents to the ED due to increasing shortness of breath/anxiety attacks. Her medical history is significant for COPD with emphysema, alcohol abuse, anxiety and depression, ALEJANDRO. History is obtained from patient as well as her who is at bedside. Patient states she has been feeling unwell for several weeks, feeling dizzy at times and has had panic attacks. Also notes some looser stool in the past week. Her notes that she eats very small amounts of food, has been going up to several days without any food and he has to remind her throughout the day to drink only 8-12 ounces of water. states that he will try to get her to eat any food but she continues to complain of no appetite, has had ongoing weight loss for over a year. Patient notes that she has a history of alcohol abuse- has gone to rehab on multiple occasions and is currently drinking 2 bottles of wine per day. Has never had seizures with alcohol withdrawal, but has always gone to rehab or the hospital in order to detox from alcohol. States her last drink was a glass of wine this morning. Her notes that she has not left the house in over a month- she missed her psychiatry appointment at [facility] earlier this month so she has been without all of her medications for several weeks. Patient expresses that she has struggled mentally over the last several months after there were several deaths in her family (her brother and [id number] as well as a close friend). Patient lives at home with her . Uses 2L NC continuously, follows with Dr. Oscar/pulmonology. Does not use any assistive devices at home for ambulation, is restricted in her mobility due to her oxygen tubing. ED Course: -CXR -CBC, CMP, troponin, alcohol level -Respiratory biofire Allergies Allergy/AdvReac Type Severity Reaction Status Date / Time RACIEL Inhibitors AdvReac Intermediate COUGH Verified 09/05/23 14:16 naltrexone [From Vivitrol] AdvReac Intermediate Hair Verified 09/05/23 14:16 loss/ingrown hairs over body Home Medications Medication Instructions Recorded Confirmed Type mirtazapine 30 mg tablet (Remeron) 30 mg PO HS 09/05/23 08/03/24 History trazodone 100 mg tablet 200 mg PO HS 09/05/23 08/03/24 History albuterol sulfate 90 mcg/actuation 2 puff inhalation Q6H PRN 09/10/23 08/03/24 Rx aerosol inhaler Shortness Of Breath Or Wheezing #18 grams fluticasone fur. 100 mcg-umeclid 1 inh inhalation DAILY #60 ea 09/20/23 08/03/24 Rx 62.5 mcg-vilant 25 mcg inhalat.powder (Trelegy Ellipta) topiramate 100 mg tablet 100 mg PO HS 08/03/24 08/03/24 History Past Med/Surg History Problem List (Updated 08/03/24 @ 22:15 by Ashley Wong DO) Failure to thrive in adult Alcoholism Encounter for pre-operative examination Low back pain (Acute) Bronchitis Constipation (Acute) Pneumonia Left lower lobe pneumonia (Acute) Severe sepsis Sepsis (Acute) Hypoxia (Acute) Parapneumonic effusion Pneumonia (Acute) Shortness of breath (Acute) ADHD Sleep disturbance Alcohol dependence (Acute) COPD exacerbation (Acute) Pancytopenia Tobacco abuse Hiatal hernia Respiratory failure (Acute) Abnormal LFTs (Acute) Acute alteration in mental status (Acute) Elevated troponin Elevated troponin (Acute) Metabolic alkalosis Acute on chronic respiratory failure with hypoxia and hypercapnia COPD with emphysema Chronic bronchitis Chronic respiratory failure with hypoxia and hypercapnia Hypersomnia Encounter for pre-operative examination Iron deficiency anemia Current smoker COPD (chronic obstructive pulmonary disease) Pre-op testing Acute dyspnea (Acute) COPD (chronic obstructive pulmonary disease) (Acute) Respiratory failure (Acute) SVT (supraventricular tachycardia) (Acute) Chronic respiratory failure with hypoxia, on home oxygen therapy (Acute) Anemia Avascular necrosis of femoral head Pulmonary nodule Chest pain Tobacco dependence Anemia (Acute) Alcohol use (Acute) Acute dehydration (Acute) Weakness (Acute) Acute alcoholism (Acute) Pancytopenia Physical deconditioning Multiple pulmonary nodules Atelectasis of left lung Emphysema of lung Ascites (Acute) Sepsis due to Streptococcus pneumoniae hx of Depression Tachycardia (Acute 08/17/13) COPD (chronic obstructive pulmonary disease) (Chronic) inhaler daily/prn Asthma (Chronic) Jaundice (Acute) Leukocytosis (Acute 04/21/14) Alcoholic hepatitis (Chronic) Medical History (Updated 08/03/24 @ 22:15 by Ashley Wong DO) Unintentional weight loss 35 lb wt loss over past year Poor appetite Hiatal hernia Anemia Anxiety reason for depakote Sleep apnea pt denies On home oxygen therapy 1-2L N/C prn Surgical History History of ovarian cystectomy History of colonoscopy History of tooth extraction History of bronchoscopy S/P removal of ovarian cyst Family History Father Myocardial infarction Hypertension Other No family history of adverse response to anesthesia Social History Smoking Status: Heavy tobacco smoker Tobacco Type: Cigars Cigarettes Per Day: 20; Second Hand Exposure: Yes; Do You Dip or Chew Tobacco: No; Hx Alcohol Use: Yes Alcohol type: wine Alcohol Intake Frequency Comment: 500 ml a day Hx Substance Use: No Preferred Language: Kinyarwanda Communication Ability: Effective Corporate Strategy Intern Required: No Beliefs That Will Affect Care: None marital status: Current Living Situation: Spouse How many Children do You have: 3 Feels Safe at Home: Yes Safety Concerns: Feels Safe At This Time Assistive Devices: Denture - Lower and Oxygen - Continuous Review of Systems Review of Systems: As per above Physical Exam Constitutional: + malnourished; no acute distress Eyes: PERRL; no conjunctival abnormality ENMT: Ears: no external ear abnormality Nose: no external nose abnormality Moist mucous membranes Respiratory: normal respiratory effort, lungs clear to auscultation Cardiovascular: Rate/Rhythm: regular rate and regular rhythm Extremities: no edema Gastrointestinal (Abdomen): Inspection/Auscultation: abdomen normal to inspec tion; abdomen not distended Percussion/Palpation: abdomen soft; abdomen nontender and no guarding Musculoskeletal: Moves all limbs independently. Normal addresser strength at bilateral upper extremities Skin: no rashes, warm and dry Psychiatric: A+Ox3, euthymic affect Results & Data Results & Data Vital Signs (Past 12 Hours) Vital Signs Temp Pulse Resp BP Pulse Ox O2 Del Method O2 Flow Rate 08/03/24 19:30 72 22 122/67 98 08/03/24 19:00 73 23 129/76 99 08/03/24 18:55 84 08/03/24 18:30 83 22 147/93 H 99 08/03/24 17:30 72 24 141/82 H 96 08/03/24 16:06 78 24 130/86 97 08/03/24 15:30 77 24 119/77 95 08/03/24 15:17 97 Nasal Cannula 2 08/03/24 15:00 72 22 140/76 95 08/03/24 15:00 81 08/03/24 14:41 Nasal Cannula 2 08/03/24 14:35 36.8 C 90 20 146/87 H 97 Nasal Cannula 2 Diagnostic Findings Chest X-Ray 08/03/24 15:17 EXAM: X-ray chest one-view portable CLINICAL HISTORY: Chest pain PRIORS: 01/21/2013 TECHNIQUE: Frontal view chest FINDINGS: The chest is hyperexpanded. No airspace consolidation, effusion or congestive changes. Heart size is normal. No pneumothorax. Moderate to large hiatal hernia noted. Trachea is patent. Moderate atherosclerotic disease of the abdominal aorta. Osseous structures demonstrate no acute abnormality. No radiopaque foreign body. IMPRESSION: No plain film evidence of an acute cardiopulmonary process. Electronically signed by Gloria Martino 08-03-2024 4:24 PM Supervising Physician Co-Signing Physician Notes Attending addendum: I have physically seen this patient, have supervised the medical residents activities, and agree with the H&P unless as otherwise noted. Assessment and Plan: The patient is a 64-year-old female with past medical history including COPD with emphysema, alcohol abuse, anxiety and depression, ALEJANDRO, ADHD, SVT, insomnia. She is accompanied by her in the emergency department, with complaint of feeling unwell for several weeks, intermittent dizziness, intermittent panic attacks, food intake has been eating very small amounts at a time, often times on several days of the night with a ball. Patient has a history of alcohol abuse, and has gone to rehab on multiple occasions. She reports currently drinking 2 bottles of wine daily. She reports her last drink was a glass of wine the morning of admission. She missed her most recent psychiatry appointment at [facility] earlier this month, reporting that she has not been out of the house for over a month. She reports significant issues with depression over the past several months due to a number of deaths in her family. The patient is referred for evaluation to the [facility] for evaluation and potential treatment. #Alcohol use disorder- Patient continues with significant alcohol intake, with current alcohol level less than 10 She is at high risk for alcohol withdrawal and seizures Placed on AWSS protocol with Librium taper, and IV Ativan as needed Thiamine 100 mg IV daily Folic acid 1 mg IV daily #Hypoglycemia/malnutrition/failure to thrive- Glucose 68 on admission Give first dose of thiamine IV, and will then place on D5 1/2 NSS as noted Restart mirtazapine Consult PT/OT #Hyponatremia-sodium 127 on admission Serum and urine osmolalities pending Secondary to alcohol intake Follow laboratory serially as noted, with IV fluids as noted #COPD with emphysema/chronic hypoxic respiratory failure- Continue usual Trelegy. DuoNebs as needed. Baseline 2 L nasal cannula oxygen, currently at 98% Respiratory BioFire test negative Chest x-ray without acute findings Continue BiPAP at bedtime, reports that she periodically has intolerance due to the mask fits Resident Activity Tracking Resident Involvement: Resident Care Provided Care Provided: Adult Hospital Medicine"
[2024-08-03] MEDS: FOLIC ACID 1 MG in SYRINGE 9.8 ML IV STA (22:29)
[2024-08-03] MEDS: THIAMINE HCL 100 MG in SYRINGE 9 ML IV STA (22:30)
[2024-08-03] MEDS ORDERED: ONDANSETRON INJ 2 MG/ML 2 ML VIAL IV PRN (23:39)
[2024-08-03] MEDS ORDERED: chlordiazePOXIDE ALCOHOL WITHDRAWL 25MG PO STA (23:39)
[2024-08-03] MEDS ORDERED: LORazepam 2 MG/1 ML VIAL IV PRN (23:39)
[2024-08-03] MEDS: Patient's HEIGHT &/or WEIGHT Needed STA (23:57)
[2024-08-04] MEDS: ALBUT/IPRATROP 3MG/0.5MG NEB 3 ML VIAL NEB PRN (00:25)
[2024-08-04] MEDS ORDERED: NICOTINE 14 MG/24 HR PATCH TD SCH (00:35)
[2024-08-04] MEDS: chlordiazePOXIDE HCl 25 MG CAP PO SCH ×2 (00:41→06:00)
[2024-08-04] MEDS: NICOTINE 21 MG/24 HR TDSY TD SCH (00:41)
[2024-08-04] MEDS: D5W AND 1/2NSS 1,000 ML IV SCH (01:03)
[2024-08-04 01:22] LABS: BUN Creatinine Ratio 17.2 (10-20); Calcium 9.3 mg/dl (8.6-10.3); Creatinine Clr Calc Pharmacy 129.8 ml/min; Potassium 4.2 mmol/L (3.5-5.1)
--- NOTE | 2024-08-04 03:25 | Billing Data ---
Date of Service August 04, 2024 Coding Level of Care Code 71895 INT INP/OBS CARE
[2024-08-04 07:43] LABS: Basophils # (auto) 0.02 K/uL (0.00-0.20); Basophils % (auto) 0.7 %; Eosinophils # (auto) 0.05 K/uL (0.00-0.50); Eosinophils % (auto) 1.7 %; Hematocrit (blood only) 31.6 % (37.0-47.0); Hemoglobin 11.1 g/dl (12.0-16.0); Immature Granulocytes # (auto) 0.01 K/uL (0.01-0.20); Immature Granulocytes % (auto) 0.3 %; Lymphocytes # (auto) 0.74 K/uL (1.20-3.40); Lymphocytes % (auto) 25.6 %; Mean Corpuscular Hemoglobin 33.9 pg (25.0-34.0); Mean Corpuscular Hgb Conc 35.1 g/dL (32.0-36.0); Mean Corpuscular Volume 96.6 fL (80.0-100.0); Mean Platelet Volume 9.1 fL (9.4-12.4); Monocytes # (auto) 0.57 K/uL (0.11-0.59); Monocytes % (auto) 19.7 %; Platelet Count 104 K/uL (130-400); RDW Coefficient of Variation 11.8 % (11.5-14.5); RDW Standard Deviation 41.1 fL (36.4-46.3); Red Blood Count 3.27 M/uL (4.20-5.40); White Blood Count 2.89 K/ul (4.8-10.8)
[2024-08-04 08:03] LABS: Albumin Globulin Ratio 1.6 (0.9-2); Albumin Level 3.5 gm/dl (3.4-5.0); BUN Creatinine Ratio 14.3 (10-20); Bilirubin,Total 0.4 mg/dl (0.2-1.0); Calcium 8.7 mg/dl (8.6-10.3); Creatinine Clr Calc Pharmacy 134.4 ml/min; Globulin 2.2 gm/dl (2.5-4.0); Potassium 3.7 mmol/L (3.5-5.1); Total Protein 5.7 gm/dl (6.0-8.3)
[2024-08-04 08:17] LABS: Thyroid Stimulating Hormone 2.348 uIu/ml (0.300-4.500)
[2024-08-04] MEDS ORDERED: INFLUENZA VACC TS2024-25(65y+)/PF (IIV3) 0.5mL Syr IM ONE (09:00)
[2024-08-04] MEDS ORDERED: NICOTINE 21 MG/24 HR TDSY TD SCH (09:00)
[2024-08-04] MEDS ORDERED: PNEUMOCOCCAL VACCINE (PCV20) 20-VAL CONJ-DIP CRM/PF 0.5 ML SYR IM ONE (09:00)
[2024-08-04] MEDS: ENOXAPARIN INJ 30 MG/0.3 ML SYR SQ SCH (09:22)
[2024-08-04] MEDS: FOLIC ACID 1 MG TAB PO SCH (09:23)
[2024-08-04] MEDS: FLUTICASONE FUROATE 100MCG 14 PUFFS/INHALER INH SCH (09:23)
[2024-08-04] MEDS: UMECLIDINIUM/VILANTEROL 62.5/25MCG 7 PUFFS/INHALER INH SCH (09:25)
[2024-08-04] MEDS: THIAMINE HCL 100 MG TAB PO SCH (09:25)
[2024-08-04] MEDS: SODIUM CHLORIDE 0.9% 1,000 ML IV SCH (16:22)
[2024-08-04] MEDS: ACETAMINOPHEN 325 MG TAB PO PRN (18:24)
[2024-08-04] MEDS: TOPIRAMATE 100 MG TAB PO SCH (20:16)
[2024-08-04] MEDS: MIRTAZAPINE TAB 15 MG TAB PO SCH (20:16)
[2024-08-04] MEDS: traZODone HCL 100 MG TAB PO SCH (20:17)
[2024-08-04] MEDS: LEVALBUTEROL 1.25 MG/3 ML NEB NEB SCH (22:30)
--- NOTE | 2024-08-04 23:12 | Hospitalist Progress Note ---
"Date of Service August 04, 2024 Assessment & Plan (1) Pancytopenia: (2) COPD with emphysema: (3) Alcohol use disorder: (4) Failure to thrive in adult: (5) Depression: Plan Hyponatremia -Na 127 on arrival, suspect secondary to alcohol use/beer potomania. Notes about 1 week of looser stools, denies true diarrhea. -Urine and serum osmolality pending. Anion gap mildly elevated at 12 -Poor PO intake for extended period. Ordered another liter of IVF. -sodium at 129, will continue to monitor. Alcohol Use Disorder -Alcohol level negative on arrival, last reported drink was morning of 08/03 -Reports drinking approximately 2 bottles of wine daily -AWSS protocol ordered with Librium taper, IV Ativan as needed -Ordered Folic Acid, Thiamine Malnutrition/Failure to Thrive -Decreasing PO intake of food and liquids over weeks to months -Hypoglycemic on arrival with BSG 68 -Ordered PT/OT evaluations Depression and Anxiety -Out of home psychiatric medications for several weeks, reports increasing frequency of panic attacks -History of SI, denies current suicidal ideation -Restart Trazodone, Mirtazapine, Topiramate -Will need close follow up with psychiatry and PCP after discharge COPD with Emphysema | Chronic Hypoxic Respiratory Failure -Continue Trelegy. Duonebs PRN -Baseline oxygen requirement at home is 2L NC, currently 98% on 2L NC -CXR in ED without evidence of acute process. Respiratory biofire negative. -Patient currently reports feeling SOB at rest. will switch xopenex scheduled. Pancytopenia -WBC 3.88, RBC 3.96, platelets 127 -Chronic per prior admissions, likely due to bone marrow suppression from alcohol use -Monitor daily CBC Admit to: Med/tele VTE Prophylaxis: Lovenox Diet: Regular Code Status: Full Code Admission and Anticipated Discharge Date Admission Date: August 03, 2024 Subjective Patient reports no new symptoms. Physical Exam Constitutional: + malnourished; no acute distress Eyes: PERRL; no conjunctival abnormality ENMT: Ears: no external ear abnormality Nose: no external nose abnormality Moist mucous membranes Respiratory: normal respiratory effort, lungs clear to auscultation Cardiovascular: Rate/Rhythm: regular rate and regular rhythm Extremities: no edema Gastrointestinal (Abdomen): Inspection/Auscultation: abdomen normal to inspection; abdomen not distended Percussion/Palpation: abdomen soft; abdomen nontender and no guarding Musculoskeletal: Moves all limbs independently. Normal retail analytics manager strength at bilateral upper extremities Skin: no rashes, warm and dry Psychiatric: A+Ox3, euthymic affect Results & Data Results & Data Vital Signs (Past 12 Hours) Vital Signs Temp Pulse Pulse Resp BP Pulse Ox O2 Del Method 08/04/24 23:10 83 08/04/24 23:09 86 30 H 94 08/04/24 22:30 86 18 94 Nasal Cannula 08/04/24 19:53 36.7 C 85 20 88/58 L 96 Nasal Cannula 08/04/24 15:45 90 08/04/24 15:02 37.3 C 93 H 18 109/75 91 Nasal Cannula 08/04/24 14:11 97 O2 Flow Rate 08/04/24 23:10 08/04/24 23:09 2 08/04/24 22:30 2 08/04/24 19:53 2 08/04/24 15:45 08/04/24 15:02 2 08/04/24 14:11 PG Care Time/CCT Total # of Minutes Spent Total Time Spent with Patient: Total time spent is greater than 50% in coordination of care (as documented) at patient's floor/unit and/or counseling patient: Coding Level of Care Code 61032 SUB INP/OBS CARE 3/50MIN Diagnoses Pancytopenia D61.818 COPD with emphysema J43.9 Alcohol use disorder F10.90 Failure to thrive in adult R62.7 Depression F32.A"
--- NOTE | 2024-08-05 08:48 | XRay Report ---
XR chest 2V PA/lateral CLINICAL HISTORY: hypoxia COMPARISON STUDY: 08/03/2024 FINDINGS: Heart size and pulmonary vasculature are normal. Stable hyperexpanded lungs suggesting emph ysema. Stable mild scarring or atelectasis at the left lung base. No other consolidation or pleural e ffusion. No pneumothorax. IMPRESSION: Hyperexpanded lungs with no pneumonia seen. ACT 112: Negative or not required by law. Electronically signed by: Fortino Pickens M.D. 08/05/2024 8:47 AM
[2024-08-05 08:58] LABS: Hematocrit (blood only) 30.2 % (37.0-47.0); Hemoglobin 10.2 g/dl (12.0-16.0); Mean Corpuscular Hemoglobin 33.9 pg (25.0-34.0); Mean Corpuscular Hgb Conc 33.8 g/dL (32.0-36.0); Mean Corpuscular Volume 100.3 fL (80.0-100.0); Platelet Count 102 K/uL (130-400); RDW Coefficient of Variation 12.4 % (11.5-14.5); RDW Standard Deviation 45.9 fL (36.4-46.3); Red Blood Count 3.01 M/uL (4.20-5.40)
[2024-08-05 08:59] LABS: Mean Platelet Volume 9.2 fL (9.4-12.4)
[2024-08-05 09:18] LABS: Albumin Globulin Ratio 1.6 (0.9-2); Albumin Level 3.3 gm/dl (3.4-5.0); BUN Creatinine Ratio 21.1 (10-20); Bilirubin,Total 0.3 mg/dl (0.2-1.0); Calcium 8.7 mg/dl (8.6-10.3); Creatinine Clr Calc Pharmacy 100.7 ml/min; Globulin 2.1 gm/dl (2.5-4.0); Potassium 3.4 mmol/L (3.5-5.1); Total Protein 5.4 gm/dl (6.0-8.3)
[2024-08-05 09:40] LABS: Polychromasia 1+; Target Cells 1+
[2024-08-05 09:42] LABS: Basophils # (auto) 0.01 K/uL (0.00-0.20); Basophils % (auto) 0.6 %; Eosinophils # (auto) 0.03 K/uL (0.00-0.50); Eosinophils % (auto) 1.7 %; Immature Granulocytes # (auto) 0.01 K/uL (0.01-0.20); Immature Granulocytes % (auto) 0.6 %; Lymphocytes # (auto) 0.64 K/uL (1.20-3.40); Lymphocytes % (auto) 35.6 %; Monocytes # (auto) 0.33 K/uL (0.11-0.59); Monocytes % (auto) 18.3 %; Neutrophils # (auto) 0.78 K/uL (1.40-6.50); Neutrophils % (auto) 43.2 %
[2024-08-05 15:53] LABS: Reticulocyte % 2.38 % (0.50-2.00)
[2024-08-05 16:21] LABS: Folate (Folic Acid),Ser orPlas 8.79 ng/ml (>5.38)
[2024-08-05] MEDS: POTASSIUM CHLORIDE CRTAB 20 MEQ TABCR PO STA (16:56)
--- NOTE | 2024-08-05 23:28 | Hospitalist Progress Note ---
"Date of Service August 05, 2024 Assessment & Plan (1) Pancytopenia: (2) COPD with emphysema: (3) Alcohol use disorder: (4) Failure to thrive in adult: (5) Depression: Plan Hyponatremia -Na 127 on arrival, suspect secondary to alcohol use/beer potomania. Notes about 1 week of looser stools, denies true diarrhea. -sodium now imprved to 139. -will monitor Alcohol Use Disorder -Alcohol level negative on arrival, last reported drink was morning of 08/03 -Reports drinking approximately 2 bottles of wine daily -AWSS protocol ordered with Librium taper, IV Ativan as needed -Ordered Folic Acid, Thiamine Severe protein-calorie malnutrition Cachexia with BMI=18 Malnutrition/Failure to Thrive -Decreasing PO intake of food and liquids over weeks to months -Hypoglycemic on arrival with BSG 68 -Ordered PT/OT evaluations Depression and Anxiety -Out of home psychiatric medications for several weeks, reports increasing frequency of panic attacks -History of SI, denies current suicidal ideation -Restart Trazodone, Mirtazapine, Topiramate -Will need close follow up with psychiatry and PCP after discharge COPD with Emphysema | Chronic Hypoxic Respiratory Failure -Continue Trelegy. Duonebs PRN -Baseline oxygen requirement at home is 2L NC, currently 98% on 2L NC -CXR in ED without evidence of acute process. Respiratory biofire negative. -Patient currently reports feeling SOB at rest. will switch xopenex scheduled. neutropenia/Pancytopenia -now neutropenic -Chronic per prior admissions, likely due to bone marrow suppression from alcohol use -Monitor daily CBC -ordered iron levels, folate, b12 Admit to: Med/tele VTE Prophylaxis: Lovenox Diet: Regular Code Status: Full Code Admission and Anticipated Discharge Date Admission Date: August 03, 2024 Subjective Patient reports drinking 2 bottles of wine daily. She states she has cut back but still drinks daily. She reports she is having some tremors today. Physical Exam Constitutional: + malnourished; no acute distress Eyes: PERRL; no conjunctival abnormality ENMT: Ears: no external ear abnormality Nose: no external nose abnormality Respiratory: normal respiratory effort, lungs clear to auscultation Cardiovascular: Rate/Rhythm: regular rate and regular rhythm Extremities: no edema Gastrointestinal (Abdomen): Inspection/Auscultation: abdomen normal to inspection; abdomen not distended Percussion/Palpation: abdomen soft; abdomen nontender and no guarding Skin: no rashes, warm and dry Psychiatric: A+Ox3, euthymic affect Results & Data Results & Data Vital Signs (Past 12 Hours) Vital Signs Temp Pulse Pulse Pulse Resp BP Pulse Ox 08/05/24 23:23 69 18 97 08/05/24 23:12 37 C 92 H 16 102/64 95 08/05/24 19:30 37.1 C 96 H 18 99/64 L 95 08/05/24 16:45 36.6 C 94 H 16 96/61 L 95 08/05/24 16:03 101 H 08/05/24 14:53 91 H 16 96 08/05/24 11:36 36.4 C L 85 16 94/62 L 98 O2 Del Method O2 Flow Rate 08/05/24 23:23 Nasal Cannula 3 08/05/24 23:12 Room Air 08/05/24 19:30 Nasal Cannula 08/05/24 16:45 Nasal Cannula 2.5 08/05/24 16:03 08/05/24 14:53 Nasal Cannula 3 08/05/24 11:36 Nasal Cannula PG Care Time/CCT Total # of Minutes Spent Total Time Spent with Patient: Total time spent is greater than 50% in coordination of care (as documented) at patient's floor/unit and/or counseling patient: Coding Level of Care Code 87868 SUB INP/OBS CARE 3/50MIN Diagnoses Pancytopenia D61.818 COPD with emphysema J43.9 Alcohol use disorder F10.90 Failure to thrive in adult R62.7 Depression F32.A"
--- NOTE | 2024-08-06 07:32 | Hospitalist Progress Note ---
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 The patient had been eating little to no food and consuming two bottles of wine daily. #Hyponatremia -Na 127 on arrival, suspect secondary to alcohol use/beer potomania. Notes about 1 week of looser stools, denies true diarrhea. -sodium now improved to 142. #Alcohol Use Disorder -Alcohol level negative on arrival, last reported drink was morning of 08/03 -Reports drinking approximately 2 bottles of wine daily -Ordered Folic Acid, Thiamine. Continue Thiamine injections during admission. Transition to PO daily upon discharge. Check levels in 1 month. Plan: -Discontinue Librium taper -IV Ativan as needed #Constipation: -No BM during admission -LUQ tenderness: Plan: -Mirilax sliding scale: 3-5 doses #Malnutrition/Failure to Thrive #Cachexia with BMI 18 -Decreasing PO intake of food and liquids over weeks to months. Days at a time with no food. -Hypoglycemic on arrival with BSG 68 -Ordered PT/OT evaluations #Depression and Anxiety -Out of home psychiatric medications for several weeks, reports increasing frequency of panic attacks -History of SI, denies current suicidal ideation -Restart Trazodone, Mirtazapine, Topiramate -Will need close follow up with psychiatry and PCP after discharge -Encourage to lean on support system/family #COPD with Emphysema | Chronic Hypoxic Respiratory Failure -Continue Trelegy. Duonebs PRN -Baseline oxygen requirement at home is 2L NC -CXR in ED without evidence of acute process. Respiratory biofire negative. -Patient currently reports feeling SOB at rest. will switch xopenex scheduled. -currently 93-95% on 2L NC #neutropenia/Pancytopenia -now neutropenic -Chronic per prior admissions, likely due to bone marrow suppression from alcohol use -Monitor daily CBC -ordered iron levels, folate, b12 VTE Prophylaxis: Lovenox Diet: Regular Code Status: Full Code Admission and Anticipated Discharge Date Admission Date: August 03, 2024 Admission and Anticipated Discharge Date Admission Date: August 03, 2024 Supervising Physician Co-Signing Physician Notes I personally examined the patient and verified all lombardo points of history and exam, discussed case, and agree with decision making with Dr Ramos and Sumaya George MS2 abdominal pain at this time -epigastric and LUQ. overall weak. vitals noted, thin and frail appearing mildly uncomfortable no overt distress. abd soft (+) epigastric and LUQ tenderness no guarding/rebound/rigidity. skin mildly ashen. neuro no focal deficits abdominal pain - likely elements of both gastritis and constipation - acid suppression / miralax pancytopenia - most likely EtOH marrow suppression compounded by malnutrition (as well as specific B12 deficiency) - po intake improving, replace B12, follow fairly severe calorie (and at least mild/moderate protein) malnutrition - as well as unintentional weight loss - likely from depression/EtOH abuse - obviously will need to follow but this appears to be the most likely ddx causing the weight loss. encourage PO intake, follow. w/u further if doesn't show improvement depression - home meds, encourage lifestyle/counselling methods of helping too. this is most likely what causes her to drink EtOH abuse - likely from depression. still mild withdrawal. manage symptomatically mild hypontremia - improved. 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 She states that she has not been eating well for around 2.5yrs. This time correlates to around the time she got her dentures. She states she used to weigh 145lbs and has lost around 50lbs without trying. Her appetite has not decreasing and recently she has went several days with no food. She has been struggling with her depression all winter and has had 3 recent deaths in her family. She has been off of her depression medications. She notes that her alcohol use has also been increasing. She was drinking 2-3 glasses of wine for awhile which has increased to 2 bottles daily a couple of months ago. Today she is concerned that she feels shaky. The shakiness started 2 days ago and is progressively getting worse. She also feels dehydrated and states she has not had a BM during her admission. She is having some left-sided abdominal pain. Review of Systems Review of Systems: Constitutional: 50lbs weight loss over 2 years. Denies fever, chills, malaise, night sweats HEENT: Denies head pain, headaches. Denies eye pain, vision loss/changes, blurry vision, double vision. Denies ear pain, and hearing loss. Denies sore throat or sore neck or sinus pain. Respiratory: SOB and cough at baseline, Denies pleuritic chest pain, wheezing CV: Denies chest pain, heart palpitations, tachycardia, bradycardia, edema GI: States she is having some constipation and has not had a BM during her admission, Denies diarrhea, nausea, vomiting, hematochezia : Denies dysuria, increased urinary frequency, hematuria MSK: Denies joint pain, muscle pain, decreased ROM, Neuro: Denies altered mental status, slurred speech, numbness or tingling Psych: Still experiencing depression and anxiety Physical Exam Physical Exam: General: Alert and oriented X3, well appearing and in no acute distress HEENT: Normocephalic, atraumatic, Pupils are 3mm, round, equal and sluggishly reactive to light, neck is supple, trachea midline, no lymphadenopathy or thyromegaly appreciated Respiratory: Lung sounds are decreased bilaterally without wheezes, rales, or rhonchi Cardiovascular: Heart has RRR without murmurs, rubs, or gallops. No carotid bruits, JVD, or lower extremity edema. 2+ distal pulse palpated in all four extremities Abdomen: Abdomen tender in the LLQ, soft, nondistended. No hepatosplenomegaly appreciated. Normoactive bowel sounds. No CVA tenderness. Negative Craven's and McBurneys Neurologic: health nurse II-XII grossly intact. No focal neurological deficits. Psychiatric: Patient had a flat affect on examination Results & Data Results & Data Vital Signs (Past 12 Hours) Vital Signs Temp Pulse Pulse Resp BP Pulse Ox O2 Del Method 08/06/24 04:29 37 C 74 16 103/67 92 Nasal Cannula 08/06/24 00:48 Nasal Cannula 08/06/24 00:48 82 08/05/24 23:25 75 27 H 95 03/26/25 23:23 69 18 97 Nasal Cannula 08/05/24 23:12 37 C 92 H 16 102/64 95 Room Air 08/05/24 19:30 37.1 C 96 H 18 99/64 L 95 Nasal Cannula O2 Flow Rate 08/06/24 04:29 2 08/06/24 00:48 3 08/06/24 00:48 08/05/24 23:25 2 08/05/24 23:23 3 08/05/24 23:12 08/05/24 19:30 Resident Activity Tracking Resident Involvement: Resident Care Provided Care Provided: Adult [facility] Resident Supervision Co-Signing Physician Notes I also saw the patient and confirmed lombardo portions of the history and exam. I agree with the assessment and plan as written by student-Dr. George. Any changes or additions are summarized as follows: Subjective: Main concern today is feeling weak, which she says came on abruptly. Reports having enough experience w alcohol withdrawal to know her current shakiness is frustrating but expected, while the weakness is abnormal and she would expect to be getting stronger. Has been eating w/o issue. Reports not having a BM for several days. Also notes she was out of her psych meds for about 2 weeks. Denies FLORES, lightheaded/dizziness, SOB, CP, n/v, dysuria, muscle or joint aches. Exam: NAD, frail-appearing, no diaphoresis, NCAT, MMM, RRR, no m/r/g, CTAB w diffusely diminished lung sounds, abd ND w mild LLQ tenderness, A&Ox3, PERRL, EOMI, +tremor, no pronator drift, SILT Alcohol withdrawal/AUD: stop librium; TAVO protocol w IV Ativan; continue monitoring AWSS; B12, thiamine, and folate values LLN, continue to supplement Depression/anxiety: stopped medications for at least 2 weeks when rx ran out; trazodone, mirtazapine, and topamax restarted Pancytopenia: likely 2/2 bone marrow suppression from chronic alcohol abuse; ANC, retic index and iron profile all c/w AUD as underlying cause of anemia & leukopenia; daily CBC, heme/onc consulted Hyponatremia: likely potomania + decreased po; level 127 on arrival; improved w IVF, 142 this AM FTT/weight loss/weakness: multifactorial including AUD, decreased po intake, h/o erosive gastropathy (2022 EGD); low suspicion for malignant cause; encourage po intake + supplemental shakes; protonix iv 40mg bid; continue acute PT/OT; rec outpatient GI f/u COPD exacerbation: continue trelegy, duonebs prn, supplemental O2 via NC (home req 2L) Constipation: reports LLQ pain & no BM for several days; should improve now w/ increased intake; 1 x 51g miralax then 17g daily Aldo Ramos MD PGY-1, PSH FCM (2) Alcohol dependence Substance use status: unspecified alcohol-induced disorder Qualified Code(s): F10.29 - Alcohol dependence with unspecified alcohol-induced disorder"
[2024-08-06 07:50] LABS: Basophils # (auto) 0.01 K/uL (0.00-0.20); Basophils % (auto) 0.4 %; Eosinophils % (auto) 4.3 %; Hematocrit (blood only) 28.8 % (37.0-47.0); Hemoglobin 9.6 g/dl (12.0-16.0); Immature Granulocytes # (auto) 0.01 K/uL (0.01-0.20); Immature Granulocytes % (auto) 0.4 %; Lymphocytes # (auto) 0.78 K/uL (1.20-3.40); Lymphocytes % (auto) 33.8 %; Mean Corpuscular Hemoglobin 34.5 pg (25.0-34.0); Mean Corpuscular Hgb Conc 33.3 g/dL (32.0-36.0); Mean Corpuscular Volume 103.6 fL (80.0-100.0); Mean Platelet Volume 9.3 fL (9.4-12.4); Monocytes % (auto) 17.3 %; Neutrophils # (auto) 1.01 K/uL (1.40-6.50); Neutrophils % (auto) 43.8 %; Platelet Count 108 K/uL (130-400); RDW Coefficient of Variation 12.9 % (11.5-14.5); RDW Standard Deviation 48.7 fL (36.4-46.3); Red Blood Count 2.78 M/uL (4.20-5.40); White Blood Count 2.31 K/ul (4.8-10.8)
[2024-08-06 08:11] LABS: Albumin Globulin Ratio 1.5 (0.9-2); Albumin Level 3.2 gm/dl (3.4-5.0); BUN Creatinine Ratio 32.4 (10-20); Bilirubin,Total 0.2 mg/dl (0.2-1.0); Calcium 8.9 mg/dl (8.6-10.3); Creatinine Clr Calc Pharmacy 103.4 ml/min; Globulin 2.2 gm/dl (2.5-4.0); Potassium 4.1 mmol/L (3.5-5.1); Total Protein 5.4 gm/dl (6.0-8.3)
[2024-08-06 08:13] LABS: INR 0.9 (0.9-1.1); Prothrombin Time 9.7 Seconds (9.0-12.0)
[2024-08-06] MEDS: CYANOCOBALAMIN 1000 MCG/ML VIAL IM SCH (10:00)
[2024-08-06] MEDS ORDERED: Ativan IV Alcohol Withdrawal--Active Protocol IV PRN (11:27)
[2024-08-06] MEDS ORDERED: LORazepam 2 MG/1 ML VIAL IV PRN ×2 (11:27)
--- NOTE | 2024-08-06 12:59 | Billing Data ---
Date of Service August 06, 2024 Coding Level of Care Code 11510 SUB INP/OBS CARE MIN
[2024-08-06] MEDS: FAMOTIDINE 20MG IV PUSH 20 MG/5 ML SYR IV ONE (14:52)
[2024-08-06] MEDS: PANTOprazole 40 MG TAB PO ONE (14:52)
[2024-08-06] MEDS: ALUMINUM/MAGNESIUM SUSP 30 ML UDC PO STA (14:54)
--- NOTE | 2024-08-06 16:43 | Oncology Consultation ---
Date of Consultation August 06, 2024 Assessment & Plan (1) Alcohol dependence: (2) Pancytopenia: Plan -Pancytopenia appears chronic since at least November,. Based on review of peripheral smear, no evidence to suggest acute leukemia/myelodysplasia. ANC which was 0.78 yesterday appears to be improving. -Suspect that her chronic pancytopenia is due to bone marrow suppression from heavy alcohol use , Acute illness as well as liver cirrhosis with possible sequestration from splenomegaly. Will obtain SPEP with SOFIE to rule out multiple myeloma in the setting of macrocytosis. However, there is low suspicion for this. -Recommend checking iron studies including ferritin. Last time ferritin was checked was 09/04/2021 and was low normal at 51. If ferritin is below 50, recommend iron supplementation. Agree with folate and B12 supplementation. - No indication at this time for bone marrow biopsy. Would consider if cytopenias worsen Thank you for this consult. Please feel free to call if you have any further questions. History of Present Illness Reason for Consultation: Pancytopenia Attending Physician: Robby Barnes DO History of Present Illness 64-year-old female with medical history significant for alcohol use disorder, COPD who was admitted after she had presented with cough, shortness of breath. Hematology was consulted due to pancytopenia. Review of labs indicate that she has been pancytopenic since 2021. Last abdominal imaging on 09/15/2021 revealed liver cirrhosis Allergies Allergy/AdvReac Type Severity Reaction Status Date / Time RACIEL Inhibitors AdvReac Intermediate COUGH Verified 09/05/23 14:16 naltrexone [From Vivitrol] AdvReac Intermediate Hair Verified 09/05/23 14:16 loss/ingrown hairs over body Home Medications Medication Instructions Recorded Confirmed Type mirtazapine 30 mg tablet (Remeron) 30 mg PO HS 09/05/23 08/03/24 History trazodone 100 mg tablet 200 mg PO HS 09/05/23 08/03/24 History albuterol sulfate 90 mcg/actuation 2 puff inhalation Q6H PRN 09/10/23 08/03/24 Rx aerosol inhaler Shortness Of Breath Or Wheezing #18 grams fluticasone fur. 100 mcg-umeclid 1 inh inhalation DAILY #60 ea 09/20/23 08/03/24 Rx 62.5 mcg-vilant 25 mcg inhalat.powder (Trelegy Ellipta) topiramate 100 mg tablet 100 mg PO HS 08/03/24 08/03/24 History cyanocobalamin (vitamin B-12) 1,000 mcg PO DAILY #30 tabs 08/06/24 Rx 1,000 mcg tablet Patient History Medical History (Updated 08/06/24 @ 13:16 by Aldo Ramos MD) Encounter for pre-operative examination Alcoholism Physical deconditioning Pancytopenia Acute alcoholism Weakness Acute dehydration Alcohol use Anemia Tobacco dependence Chest pain Pulmonary nodule Avascular necrosis of femoral head Anemia SVT (supraventricular tachycardia) Respiratory failure COPD (chronic obstructive pulmonary disease) Acute dyspnea Pre-op testing COPD (chronic obstructive pulmonary disease) Encounter for pre-operative examination Hypersomnia Chronic respiratory failure with hypoxia and hypercapnia Chronic bronchitis COPD with emphysema Atelectasis of left lung Metabolic alkalosis Elevated troponin Elevated troponin Acute alteration in mental status Abnormal LFTs Respiratory failure Hiatal hernia Tobacco abuse COPD exacerbation Emphysema of lung Sleep disturbance Shortness of breath Pneumonia Sepsis due to Streptococcus pneumoniae hx of Parapneumonic effusion Hypoxia Sepsis Severe sepsis Left lower lobe pneumonia Pneumonia Bronchitis Alcoholic hepatitis ETOH abuse (08/17/13) Leukocytosis (04/21/14) Jaundice Ascites Asthma COPD (chronic obstructive pulmonary disease) inhaler daily/prn Tachycardia (08/17/13) Low back pain Poor appetite Hiatal hernia Anemia Sleep apnea pt denies On home oxygen therapy 1-2L N/C prn Surgical History History of ovarian cystectomy History of colonoscopy History of tooth extraction History of bronchoscopy S/P removal of ovarian cyst Family History Father Myocardial infarction Hypertension Other No family history of adverse response to anesthesia Social History Smoking Status: Heavy tobacco smoker Tobacco Type: Cigars Cigarettes Per Day: 20; Second Hand Exposure: Yes; Do You Dip or Chew Tobacco: No; Hx Alcohol Use: Yes Alcohol type: wine Alcohol Intake Frequency Comment: 500 ml a day Hx Substance Use: No Preferred Language: Mauritian Communication Ability: Effective Open Source Developer Required: No Beliefs That Will Affect Care: None marital status: Current Living Situation: Spouse How many Children do You have: 3 Feels Safe at Home: Yes Assistive Devices: BiPap and Oxygen - Continuous Results & Data Vital Signs (Past 12 Hours) Vital Signs Temp Pulse Pulse Resp BP Pulse Ox O2 Del Method 08/06/24 15:20 99 H 08/06/24 15:04 37.1 C 96 H 18 119/76 94 Nasal Cannula 08/06/24 14:57 96 H 20 94 Nasal Cannula 08/06/24 11:19 36.5 C 85 18 93/65 L 98 Nasal Cannula 08/06/24 08:00 Nasal Cannula 08/06/24 07:52 67 08/06/24 07:29 36.3 C L 74 18 106/65 93 Nasal Cannula 08/06/24 07:25 77 18 93 Room Air O2 Flow Rate 08/06/24 15:20 08/06/24 15:04 2 08/06/24 14:57 2 08/06/24 11:19 2 08/06/24 08:00 3 08/06/24 07:52 08/06/24 07:29 2 08/06/24 07:25 (1) Alcohol dependence Substance use status: unspecified alcohol-induced disorder Qualified Code(s): F10.29 - Alcohol dependence with unspecified alcohol-induced disorder
[2024-08-06] MEDS: POLYETHYLENE (MIRALAX) 17 GM PACK PO ONE (18:17)
[2024-08-06] MEDS: POLYETHYLENE (MIRALAX) 17 GM PACK PO PRN (19:40)
[2024-08-06] MEDS: PANTOprazole 40 MG TAB PO SCH (19:46)
[2024-08-06] MEDS: LORazepam 1 MG TAB PO STA (21:22)
[2024-08-07] MEDS ORDERED: chlordiazePOXIDE HCl 5 MG CAP PO SCH (04:00)
--- NOTE | 2024-08-07 07:30 | Hospitalist Progress Note ---
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 The patient had been eating little to no food and consuming two bottles of wine daily. #Alcohol withdrawal - TAVO protocol - continue monitoring AWSS, prn IV Ativan ordered, Librium stopped 08/06 - B12, thiamine, and folate values LLN; continue to supplement #Alcohol Use Disorder - BAL < 10.0 on arrival, last reported drink was morning of 08/03 - Reports drinking approximately 2 bottles of wine daily but has been trying to cut back - Continue supplementation as above; recheck levels in 1 month #Hyponatremia Resolved - Na 127 on arrival, likely 2/2 potomania + decreased po intake - Pt reports ~1 week of looser stools, denies true diarrhea - Improved w IVF, 138 this AM #Malnutrition/Failure to Thrive #Cachexia with BMI 18 - Multifactorial including AUD, decreased po intake (including liquids, chronic over weeks to months), h/o erosive gastropathy (2022 EGD); low suspicion for malignant cause - Hypoglycemic on arrival with BSG 68; Vitamins B1, B9, and B12 LLN - Ordered PT/OT evaluations - Pt reports improving appetite; encourage po intake + supplemental shakes - Continue protonix iv 40mg bid - Continue acute PT/OT - Rec outpatient GI f/u #Depression and Anxiety - Pt w h/o SI, had stopped medications for at least 2 weeks when rx ran out, does report increasing frequency of panic attacks. Denies current suicidal ideation - Restarted Trazodone, Mirtazapine, Topiramate - Will need close follow up with psychiatry and PCP after discharge - Encourage to lean on support system #Neutropenia/Pancytopenia - Chronic per prior admissions, since at least 2021 - likely 2/2 bone marrow suppression from chronic alcohol abuse; ANC, retic index and iron profile all c/w this etiology - Monitor daily CBC - Continue supplementing folate, b12 - Heme/onc consulted & agree w/ assessment and plan #Constipation: - Pt reports LLQ pain & no BM for several days; - Should improve now w/ increased intake - 1 x 51g Miralax given 08/06, then continue w 3-5 doses daily as needed #COPD with Emphysema | Chronic Hypoxic Respiratory Failure - Patient reporting SOB at rest. CXR in ED without evidence of acute process. Respiratory biofire negative. - Continue Trelegy. Duonebs PRN - Continue supplemental O2 for SpO2 ~ 92%; baseline O2 requirement at home is 2L NC VTE Prophylaxis: Lovenox Diet: Regular Code Status: Full Code Admission Date: 08/03/2024 Admission and Anticipated Discharge Date Admission Date: August 03, 2024 Supervising Physician Co-Signing Physician Notes I personally examined the patient and verified all lombardo points of history and exam, discussed case, and agree with decision making with Dr Ramos sleeping comfortably, in d/w dr ramos pt was still tremulous with withdrawal but also was eating better. given that she was finally getting rest and overall stable/slightly improved - allowed pt to rest vitals noted, thin and frail appearing sleeping comfortably nad. breathing unlabored no accessory muscles good effort. skin mildly ashen. neuro no focal deficits abdominal pain - likely elements of both gastritis and constipation - acid suppression / miralax - sounds to be eating somewhat better today pancytopenia - most likely EtOH marrow suppression compounded by malnutrition (as well as specific B12 deficiency) - po intake improving, replace B12, follow - improved fairly severe calorie (and at least mild/moderate protein) malnutrition - as well as unintentional weight loss - likely from depression/EtOH abuse - obviously will need to follow but this appears to be the most likely ddx causing the weight loss. encourage PO intake, follow. w/u further if doesn't show improvement; in d/w dr ramos PO intake better today depression - home meds, encourage lifestyle/counselling methods of helping too. this is most likely what causes her to drink EtOH abuse - likely from depression. still mild withdrawal. manage symptomatically mild hypontremia - improved. almost certainly related to EtOH Subjective Doing about the same as yesterday. Says she aches all over but no specific area is painful. Feels less shaky with the Ativan. Somewhat improved appetite. No new complaints. Review of Systems 2 Review of Systems: As per HPI. Physical Exam 2 Physical Exam: Gen: NAD, appears tired HEENT: NCAT, PERRL, MMM CV: RRR, no m/r/g, S1/S2 normal Resp: CTAB, symmetrical chest rise, on 2L NC Abd: Soft, NT/ND, +BS Skin: Warm, dry, well-perfused Neuro: AOx3, PERRL, EOMI, no tremor noted, no pronator drift, SILT, b/l UE str 07/15 Results & Data Results & Data Vital Signs (Past 12 Hours) Vital Signs Temp Pulse Pulse Pulse Resp BP Pulse Ox 08/07/24 07:00 82 08/07/24 03:59 37 C 89 16 129/82 96 08/07/24 03:11 76 32 H 97 08/07/24 01:28 08/07/24 01:27 88 08/06/24 23:29 37.1 C 87 16 129/80 95 08/06/24 23:08 79 29 H 98 08/06/24 23:08 79 29 H 98 08/06/24 19:50 37.2 C 91 H 16 129/80 96 O2 Del Method O2 Flow Rate 08/07/24 07:00 08/07/24 03:59 Nasal Cannula 2 08/07/24 03:11 2 08/07/24 01:28 Nasal Cannula 2 08/07/24 01:27 08/06/24 23:29 Nasal Cannula 2 08/06/24 23:08 BiPAP 2 08/06/24 23:08 2 08/06/24 19:50 Nasal Cannula 2 Laboratory Results 08/07/24 07:10 08/07/24 07:10 Resident Activity Tracking Resident Involvement: Resident Care Provided Care Provided: Adult Hospital Medicine (2) Alcohol dependence Substance use status: unspecified alcohol-induced disorder Qualified Code(s): F10.29 - Alcohol dependence with unspecified alcohol-induced disorder"
[2024-08-07] MEDS: LORazepam 2 MG/1 ML VIAL IV PRN (07:49)
[2024-08-07 08:03] LABS: Hematocrit (blood only) 32.1 % (37.0-47.0); Hemoglobin 10.6 g/dl (12.0-16.0); Mean Corpuscular Hemoglobin 33.8 pg (25.0-34.0); Mean Corpuscular Volume 102.2 fL (80.0-100.0); Mean Platelet Volume 9.1 fL (9.4-12.4); Platelet Count 115 K/uL (130-400); RDW Coefficient of Variation 13.1 % (11.5-14.5); RDW Standard Deviation 49.1 fL (36.4-46.3); Red Blood Count 3.14 M/uL (4.20-5.40); White Blood Count 6.15 K/ul (4.8-10.8)
[2024-08-07 08:13] LABS: BUN Creatinine Ratio 30.8 (10-20); Calcium 9.1 mg/dl (8.6-10.3); Creatinine Clr Calc Pharmacy 98.1 ml/min; Potassium 3.9 mmol/L (3.5-5.1)
[2024-08-07] MEDS ORDERED: LEVALBUTEROL 1.25 MG/3 ML NEB NEB PRN (15:09)
--- NOTE | 2024-08-07 17:12 | Billing Data ---
Date of Service August 07, 2024 Coding Level of Care Code 20374 SUB INP/OBS CARE
[2024-08-08 06:17] LABS: Hematocrit (blood only) 30.5 % (37.0-47.0); Mean Corpuscular Hemoglobin 33.7 pg (25.0-34.0); Mean Corpuscular Hgb Conc 32.8 g/dL (32.0-36.0); Mean Corpuscular Volume 102.7 fL (80.0-100.0); Mean Platelet Volume 9.3 fL (9.4-12.4); Platelet Count 121 K/uL (130-400); RDW Coefficient of Variation 12.5 % (11.5-14.5); RDW Standard Deviation 47.4 fL (36.4-46.3); Red Blood Count 2.97 M/uL (4.20-5.40); White Blood Count 5.55 K/ul (4.8-10.8)
[2024-08-08 06:29] LABS: BUN Creatinine Ratio 44.1 (10-20); Calcium 9.1 mg/dl (8.6-10.3); Creatinine Clr Calc Pharmacy 112.5 ml/min; Potassium 3.7 mmol/L (3.5-5.1)
--- NOTE | 2024-08-08 09:28 | Hospitalist Progress Note ---
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 She had not taken her psych meds for weeks, and had been eating little to no food and consuming two bottles of wine daily. Currently pending placement at [facility]. #Alcohol withdrawal - TAVO protocol - continue monitoring AWSS, prn IV Ativan ordered, Librium stopped 08/06 - B12, thiamine, and folate values LLN; continue to supplement #Alcohol Use Disorder - BAL < 10.0 on arrival, last reported drink was morning of 08/03 - Reports drinking approximately 2 bottles of wine daily but has been trying to cut back - Continue supplementation as above; recheck levels in 1 month #Malnutrition/Failure to Thrive #Cachexia with BMI 18 - Multifactorial including AUD, decreased po intake (including liquids, chronic over weeks to months), h/o erosive gastropathy (2022 EGD); low suspicion for malignant cause - Hypoglycemic on arrival with BSG 68; Vitamins B1, B9, and B12 LLN - Ordered PT/OT evaluations - Pt reports improving appetite; encourage po intake + supplemental shakes - Continue protonix iv 40mg bid - Continue acute PT/OT - Rec outpatient GI f/u #Depression and Anxiety - Pt w h/o SI, had stopped medications for at least 2 weeks when rx ran out, does report increasing frequency of panic attacks. Denies current suicidal ideation - Restarted Trazodone, Mirtazapine, Topiramate - Will need close follow up with psychiatry and PCP after discharge - Encourage to lean on support system #Neutropenia/Pancytopenia - Chronic per prior admissions, since at least 2021 - likely 2/2 bone marrow suppression from chronic alcohol abuse; ANC, retic index and iron profile all c/w this etiology - Monitor daily CBC - Continue supplementing folate, b12 - Heme/onc consulted & agree w/ assessment and plan #Constipation: - Pt reports LLQ pain & no BM for several days; - Should improve now w/ increased intake - 1 x 51g Miralax given 08/06, then continue w 3-5 doses daily as needed #Hyponatremia Resolved - Na 127 on arrival, likely 2/2 potomania + decreased po intake - Pt reports ~1 week of looser stools, denies true diarrhea - Improved w IVF, 138 this AM #COPD with Emphysema | Chronic Hypoxic Respiratory Failure - Patient reporting SOB at rest. CXR in ED without evidence of acute process. Respiratory biofire negative. - Continue Trelegy. Duonebs PRN - Continue supplemental O2 to maintain SpO2 ~ 92%; baseline O2 requirement at home is 2L NC VTE Prophylaxis: Lovenox Diet: Regular Code Status: Full Code Admission Date: 08/03/2024 Admission and Anticipated Discharge Date Admission Date: August 03, 2024 Supervising Physician Co-Signing Physician Notes I personally examined the patient and verified all lombardo points of history and exam, discussed case, and agree with decision making with Dr Ramos once again sleeping comfortably, in d/w dr ramos pt was doing better eating a little better no acute concerns just slowly progressing. allowed pt to rest vitals noted, thin and frail appearing sleeping comfortably nad. breathing unlabored no accessory muscles good effort. skin mildly ashen. neuro no focal deficits abdominal pain - likely elements of both gastritis and constipation - acid suppression / miralax - with these additions PO intake has improved some pancytopenia - most likely EtOH marrow suppression compounded by malnutrition (as well as specific B12 deficiency) - po intake improving, replace B12, follow -is showing improvement (likely right now more due to lack of EtOH and ongiong suppression far more than anything we're adding) fairly severe calorie (and at least mild/moderate protein) malnutrition - as well as unintentional weight loss - likely from depression/EtOH abuse - obviously will need to follow but this appears to be the most likely ddx causing the weight loss. encourage PO intake, follow. w/u further if doesn't show improvement; that said last 2 days maybe sl improvement in PO intake depression - home meds, encourage lifestyle/counselling methods of helping too. this is most likely what causes her to drink EtOH abuse - likely from depression. still mild withdrawal. manage symptomatically mild hypontremia - improved. almost certainly related to EtOH dispo right now would be home with close f/u based on last PT assessments, but she does appear frail and feels quite weak - ongoing "work in progress' re home vs rehab once she's feeling better/less withdrawal/more medically ready for dc Subjective Feeling "okay" today. Still aches all over but no focal pain. Feels less shaky, has been able to eat a little, no new complaints. Review of Systems 2 Review of Systems: As per HPI. Physical Exam 2 Physical Exam: Gen: NAD, appears tired HEENT: NCAT, PERRL, MMM CV: RRR, no m/r/g, S1/S2 normal Resp: CTAB, symmetrical chest rise, on 2L NC Abd: Soft, NT/ND, +BS Skin: Warm, dry, well-perfused Neuro: AOx3, PERRL, EOMI, mild tremor when lifting anything, no pronator drift, SILT Results & Data Results & Data Vital Signs (Past 12 Hours) Vital Signs Temp Pulse Pulse Resp BP Pulse Ox O2 Del Method 08/08/24 07:53 36.6 C 66 16 115/73 95 Nasal Cannula 08/08/24 06:45 74 08/08/24 04:22 37.3 C 92 H 20 127/82 97 Nasal Cannula 08/08/24 03:24 66 35 H 97 08/07/24 23:56 36.8 C 79 22 150/87 H 95 CPAP 08/07/24 22:02 79 32 H 96 08/07/24 21:53 77 O2 Flow Rate 08/08/24 07:53 2 08/08/24 06:45 08/08/24 04:22 3 08/08/24 03:24 3 08/07/24 23:56 08/07/24 22:02 3 08/07/24 21:53 Laboratory Results 08/08/24 05:30 08/08/24 05:30 Resident Activity Tracking Resident Involvement: Resident Care Provided Care Provided: Adult Hospital Medicine (2) Alcohol dependence Substance use status: unspecified alcohol-induced disorder Qualified Code(s): F10.29 - Alcohol dependence with unspecified alcohol-induced disorder
--- NOTE | 2024-08-08 14:55 | Billing Data ---
Date of Service August 08, 2024 Coding Level of Care Code 19355 SUB INP/OBS CARE
[2024-08-09 06:31] LABS: Hematocrit (blood only) 29.9 % (37.0-47.0); Hemoglobin 10.1 g/dl (12.0-16.0); Mean Corpuscular Hemoglobin 34.4 pg (25.0-34.0); Mean Corpuscular Hgb Conc 33.8 g/dL (32.0-36.0); Mean Corpuscular Volume 101.7 fL (80.0-100.0); Platelet Count 142 K/uL (130-400); RDW Coefficient of Variation 11.9 % (11.5-14.5); RDW Standard Deviation 44.9 fL (36.4-46.3); Red Blood Count 2.94 M/uL (4.20-5.40); White Blood Count 4.63 K/ul (4.8-10.8)
[2024-08-09 06:56] LABS: BUN Creatinine Ratio 48.6 (10-20); Calcium 9.3 mg/dl (8.6-10.3); Creatinine Clr Calc Pharmacy 109.3 ml/min; Potassium 3.4 mmol/L (3.5-5.1)
--- NOTE | 2024-08-09 13:55 | Hospitalist Progress Note ---
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 She had not taken her psych meds for weeks, and had been eating little to no food and consuming two bottles of wine daily. Currently pending placement at [facility]. #Alcohol withdrawal -Patient is now 6 days out from withdrawal, has a significant anxiety component but outside of the window for ongoing alcohol withdrawal. - B12, thiamine, and folate values LLN; continue to supplement #Alcohol Use Disorder - BAL < 10.0 on arrival, last reported drink was morning of 08/03 - Reports drinking approximately 2 bottles of wine daily but has been trying to cut back - Continue supplementation as above; recheck levels in 1 month #Malnutrition/Failure to Thrive, BMI 18 - Multifactorial including AUD, decreased po intake (including liquids, chronic over weeks to months), h/o erosive gastropathy (2022 EGD); low suspicion for malignant cause - Hypoglycemic on arrival with BSG 68; Vitamins B1, B9, and B12 LLN -Outpatient GI follow-up Continue PPI twice daily Placement pending #Depression and Anxiety - Pt w h/o SI, had stopped medications for at least 2 weeks when rx ran out, does report increasing frequency of panic attacks. Denies current suicidal ideation -Continue trazodone, Mirtazapine, Topiramate -Outpatient PCP and psychiatry follow-up #Neutropenia/Pancytopenia - Chronic per prior admissions, since at least 2021 - likely 2/2 bone marrow suppression from chronic alcohol abuse - Continue supplementing folate, b12 - Heme/onc consulted & agree w/ assessment and plan CBC stable, hemoglobin stable #Constipation: - Pt reports LLQ pain & no BM for several days; -Has been on MiraLAX MiraLAX daily continued, may add Docosavit and if still with no bowel movements after 1/2 days can add milk of magnesia. Oral liquid intake encouraged #Hyponatremia Resolved - Na 127 on arrival, likely 2/2 potomania + decreased po intake -Improved #COPD with Emphysema | Chronic Hypoxic Respiratory Failure - Patient reporting SOB at rest. CXR in ED without evidence of acute process. Respiratory biofire negative. - Continue Trelegy. Duonebs PRN - Continue supplemental O2 to maintain SpO2 ~ 92%; baseline O2 requirement at home is 2L NC Patient is coarse but without acute wheezing. A flutter valve/incentive spirometry/Mucinex ordered to help with expectoration of thick mucus VTE Prophylaxis: Lovenox Diet: Regular Code Status: Full Code Admission Date: 08/03/2024 Admission and Anticipated Discharge Date Admission Date: August 03, 2024 Subjective Seen at the bedside. Sitting up in the chair at time of visit. Feels tired and would like to get back into the bed. Continues to feel weak and have a cough. [place] very tremulous yesterday, tremor improved this morning. Discussed with nursing at time of bedside visit, patient is having some coarse secretions which he is having difficulty expectorating Physical Exam Physical Exam: General: A&Ox3. NAD. Cooperative. Appears thin/cachectic HEENT: Atraumatic, normocephalic. Vision and hearing grossly intact Pulm: Basilar rhonchi and coarse without wheezing/rales Cardiac: RRR, -mrg. Radial pulses intact and symmetrical. Abdominal: Nontender, nondistended, soft. BS present. Results & Data Results & Data Vital Signs (Past 12 Hours) Vital Signs Temp Pulse Pulse Resp BP Pulse Ox O2 Del Method 08/09/24 10:41 36.4 C L 87 20 122/75 93 Nasal Cannula 08/09/24 07:57 37 C 78 20 124/80 95 CPAP 08/09/24 06:45 73 08/09/24 04:12 36.9 C 74 20 132/83 96 CPAP 08/09/24 02:16 70 35 H 94 O2 Flow Rate 08/09/24 10:41 2 08/09/24 07:57 08/09/24 06:45 08/09/24 04:12 2 08/09/24 02:16 2 PG Care Time/CCT Total # of Minutes Spent Total Time Spent with Patient: Total time spent is greater than 50% in coordination of care (as documented) at patient's floor/unit and/or counseling patient: Coding Level of Care Code 91314 SUB INP/OBS CARE MIN Diagnoses Anxiety F41.9 Alcohol dependence with unspecified alcohol-induced disorder F10.29 Substance use status: unspecified alcohol-induced disorder Acute hyponatremia E87.1 Pancytopenia D61.818 Unintentional weight loss R63.4 Failure to thrive in adult R62.7 Chronic respiratory failure with hypoxia, on home oxygen therapy J96.11; Z99.81 Acute on chronic respiratory failure with hypoxia and hypercapnia J96.21; J96.22 Constipation K59.00 (2) Alcohol dependence Substance use status: unspecified alcohol-induced disorder Qualified Code(s): F10.29 - Alcohol dependence with unspecified alcohol-induced disorder"
[2024-08-09] MEDS: bisacodyL 5 MG TABEC PO PRN (18:22)
[2024-08-09] MEDS: guaiFENesin 600 MG TABCR PO SCH (20:56)
[2024-08-10 06:42] LABS: Hemoglobin 9.1 g/dl (12.0-16.0); Mean Corpuscular Hemoglobin 33.7 pg (25.0-34.0); Mean Corpuscular Hgb Conc 32.5 g/dL (32.0-36.0); Mean Corpuscular Volume 103.7 fL (80.0-100.0); Mean Platelet Volume 9.6 fL (9.4-12.4); Platelet Count 177 K/uL (130-400); RDW Coefficient of Variation 12.1 % (11.5-14.5); RDW Standard Deviation 45.9 fL (36.4-46.3); White Blood Count 2.85 K/ul (4.8-10.8)
[2024-08-10 07:12] LABS: BUN Creatinine Ratio 44.2 (10-20); Calcium 9.1 mg/dl (8.6-10.3); Potassium 3.3 mmol/L (3.5-5.1)
[2024-08-10 07:17] LABS: Albumin 3.1 g/dL (3.8-4.8); Alpha 1 Globulin 0.3 g/dL (0.2-0.3); Alpha 2 Globulin 0.7 g/dL (0.5-0.9); Beta-1-Globulin 0.3 g/dL (0.4-0.6); Beta-2-Globulin 0.3 g/dL (0.2-0.5); Gamma Globulin 0.5 g/dL (0.8-1.7); Monoclonal Protein Band 1 DNR g/dL (NONE DETECTED); Monoclonal Protein Band 2 DNR g/dL (NONE DETECTED); Monoclonal Protein Band 3 DNR g/dL (NONE DETECTED); Total Protein 5.2 g/dL (6.1-8.1)
--- NOTE | 2024-08-10 09:46 | Discharge Summary ---
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 She had not taken her psych meds for weeks, and had been eating little to no food and consuming two bottles of wine daily. She clinically progressed, remained stable past 6 days and outside of acute withdrawal window, and was discharged to acute rehab at [facility]. Day of discharge she was back on her home baseline of 2 L of oxygen and did appear quite frail however her hyponatremia had resolved, she did not show evidence of acute infectious process, and will require ongoing care for her pancytopenia and nutritional deficiency. Due to her frailty, COPD, and pancytopenia she is at high risk of readmission however at this time does not have any active issues requiring acute hospitalization and progression to rehab and oral supplementation we will give her her best shot at recovery and minimize her risk of both prolonged deconditioning/weakness and avoiding hospital pathogens.Normotensive at time of discharge assessment, heart rate regular and without tachycardia. Because membranes were slightly tacky, continued oral supplements encouraged. To do as outpatient: Continue PPI twice daily Nutrition supplements, boost 3 times daily with meals Continue depression/anxiety meds, and follow-up with PCP and psychiatry CBC in 1 week to follow pancytopenia suspected due to bone marrow suppression from chronic alcohol use, heme-onc follow-up. Continue B12/folate supplementation Repeat BMP in 1 week for electrolyte stability. Replete potassium as needed. Hyponatremia likely due to potomania resolved during admission Continue MiraLAX daily, Dulcolax second line, milk of magnesia third line for chronic constipation PT/OT and continued strengthening. Patient has weakness, frailty, cachexia and emphysema. She did not show evidence of acute pneumonia and was not wheezing at time of discharge but did fatigue easily. Flutter valve/incentive spirometry/Mucinex were continued. She did have a white count or fevers or evidence of pneumonia at time of discharge assessment #Alcohol withdrawal -Newly treated with Librium and aWSS which was discontinued, patient was stable after 6-7 days from last drink. Has a significant anxiety component but outside of the window for ongoing alcohol withdrawal. - B12, thiamine, and folate values LLN; continue to supplement #Alcohol Use Disorder - BAL < 10.0 on arrival, last reported drink was morning of 08/03 - Reports drinking approximately 2 bottles of wine daily but has been trying to cut back - Continue vitamin supplementation #Malnutrition/Failure to Thrive, BMI 18 - Multifactorial including AUD, decreased po intake (including liquids, chronic over weeks to months), h/o erosive gastropathy (2022 EGD); low suspicion for malignant cause - Hypoglycemic on arrival with BSG 68; Vitamins B1, B9, and B12 LLN -Outpatient GI follow-up Continue boost 3 times daily with meals Discharge [facility]hab History of erosive gastropathy, GERD Continue PPI twice daily If stable after 1 month consider going to once daily dosing to demise gastric nutritional impairment #Depression and Anxiety - Pt w h/o SI, had stopped medications for at least 2 weeks when rx ran out, does report increasing frequency of panic attacks. Denies current suicidal ideation -Continue trazodone, Mirtazapine, Topiramate -Outpatient PCP and psychiatry follow-up #Neutropenia/Pancytopenia - Chronic per prior admissions, since at least 2021 - likely 2/2 bone marrow suppression from chronic alcohol abuse - Continue supplementing folate, b12 - Heme/onc consulted & agree w/ assessment and plan CBC stable, hemoglobin stable #Constipation: -Has been on MiraLAX Dulcolax/milk of magnesia second and third line if needed #Hyponatremia Resolved - Na 127 on arrival, likely 2/2 potomania + decreased po intake -Improved #COPD with Emphysema | Chronic Hypoxic Respiratory Failure - Patient reporting SOB at rest. CXR in ED without evidence of acute process. Respiratory biofire negative. - Continue Trelegy. Duonebs PRN - Continue supplemental O2 to maintain SpO2 ~ 92%; baseline O2 requirement at home is 2L NC Patient remained coarse but without acute wheezing. flutter valve/incentive spirometry/Mucinex ordered to help with expectoration of thick mucus. Coarseness improved but not completely resolved with flutter valve/Mucinex Admission HPI Per Admitting Provider Lakeisha Aguirre is a 64 year-old female who presents to the ED due to increasing shortness of breath/anxiety attacks. Her medical history is significant for COPD with emphysema, alcohol abuse, anxiety and depression, ALEJANDRO. History is obtained from patient as well as her who is at bedside. Patient states she has been feeling unwell for several weeks, feeling dizzy at times and has had panic attacks. Also notes some looser stool in the past week. Her notes that she eats very small amounts of food, has been going up to several days without any food and he has to remind her throughout the day to drink only 8-12 ounces of water. states that he will try to get her to eat any food but she continues to complain of no appetite, has had ongoing weight loss for over a year. Patient notes that she has a history of alcohol abuse- has gone to rehab on multiple occasions and is currently drinking 2 bottles of wine per day. Has never had seizures with alcohol withdrawal, but has always gone to rehab or the hospital in order to detox from alcohol. States her last drink was a glass of wine this morning. Her notes that she has not left the house in over a month- she missed her psychiatry appointment at [facility] earlier this month so she has been without all of her medications for several weeks. Patient expresses that she has struggled mentally over the last several months after there were several deaths in her family (her brother and [id number] as well as a close friend). Patient lives at home with her . Uses 2L NC continuously, follows with Dr. Oscar/pulmonology. Does not use any assistive devices at home for ambulation, is restricted in her mobility due to her oxygen tubing. ED Course: -CXR -CBC, CMP, troponin, alcohol level -Respiratory biofire Discharge Exam General: A&Ox3. NAD. Cooperative. Appears thin/cachectic. Normotensive at bedside check HEENT: Atraumatic, normocephalic. Vision and hearing grossly intact Pulm: Previously nose basilar rhonchi resolved. Moderate to good air movement without wheezing. Somewhat prolonged expiration phase. On 2 L nasal cannula, Cardiac: RRR, -mrg. Radial pulses intact and symmetrical. Abdominal: Nontender, nondistended, soft. BS present. Extremities: Thin Discharge Plan Discharge Items Patient Disposition: Transfer Inpatient Rehab Fac Reason For Visit: HYPONATREMIA Discharge Diagnosis: hyponatremia, AUD, FTT Activity: Per Instructions section Non-emergency contact: Primary Care Provider and Psychiatrist Call non-emergency contact if: you have any medication questions and your symptoms worsen Follow-up/Referrals: Whit Ireland PA-C [Physician Software Development Specialist] - Jamila Benjamin MD [Primary Care Provider] - Diet: Regular Addtl Attending Provider Instructions: You were seen in the hospital for malnutrition, depression/anxiety, pancytopenia, hyponatremia, and concern for potential alcohol withdrawal. You moved outside of the alcohol withdrawal. You are clinically stable. Your cell counts remain low, you have been prescribed multiple vitamins as noted with follow-up to your PCP and hematology with outpatient checks to make sure that these gradually improve. You did not have any evidence of pneumonia at time of discharge. Your heart rate was regular time of discharge. Your low sodium levels resolved by time of discharge. You remained weak and easily fatigued, it was recommended that you remain at rehab for additional monitoring and strengthening Please continue Protonix 40 mg by mouth twice daily for erosive gastropathy It is recommended you take a nutrition supplement such as boost with meals 3 times daily Your home depression/anxiety medications have been resumed Please take MiraLAX daily for constipation. You may also use Dulcolax if no bowel movement in 1-2 days, and milk of magnesia if no bowel movement in another 1-2 days after that. You have been prescribed multiple vitamins as below due to both malnutrition and to help your cell counts recover. You should have a repeat CBC and BMP within 1 week performed at either rehab or by your PCP. Follow-up with hematology oncology is being scheduled for you as noted If you develop any new or worsening symptoms including fever, chills, sweats, chest pain, chest pressure, difficulty breathing, uncontrolled nausea/vomiting, rash, wheezing, passing out or nearly passing out, bleeding, black/bloody bowel movements, or other new or concerning symptoms please call your primary care physician, or call 911 for re-evaluation in the emergency department if you are very concerned. Pending Studies at Discharge: No Stand-Alone Forms: My [facility] Skilled Items Patient informed of condition?: Yes DNR: No Discharge Level of Care: Acute rehab Communicable Disease: No Discharge Prognosis: Improving Lines: None Urinary Catheter: No Medications and DC Order Prescriptions: New cyanocobalamin (vitamin B-12) 1,000 mcg tablet 1,000 mcg PO DAILY Qty: 30 3RF pantoprazole 40 mg Tablet,Delayed Release (Dr/Ec) 40 mg PO BID Qty: 60 0RF guaifenesin [Mucinex] 600 mg Tablet Extended Release 12hr 600 mg PO Q12 Qty: 14 0RF thiamine HCl (vitamin B1) 100 mg Tablet 100 mg PO QAM Qty: 30 0RF folic acid 1 mg Tablet 1 mg PO QAM Qty: 30 0RF Continued Trelegy Ellipta 100-62.5-25 mcg blister with device 1 inh inhalation DAILY Qty: 60 12RF trazodone 100 mg tablet 200 mg PO HS mirtazapine [Remeron] 30 mg tablet 30 mg PO HS Rx Instructions: Last filled 06/18/24 x30 day supply albuterol sulfate 90 mcg/actuation HFA aerosol inhaler 2 puff inhalation Q6H PRN (Reason: Shortness Of Breath Or Wheezing) Qty: 18 3RF topiramate 100 mg tablet 100 mg PO HS Rx Instructions: Last filled 05/2024 x30 day supply Discharge Orders: Discharge Order (Routine); Ordered 08/10/24 Ordered By: Akil Snow Admission Data Admit Date/Time: 08/03/24 21:06 Attending Provider: Akil Snow Admit Provider: Ashley Wong Primary Care Provider: Jamila Benjamin Other Providers: Tierra Dan; [facility] Other Interventions: Discharge Summary Assessment (RN) Last Done: 08/10/24 12:47 Hospital Stay Data Consultations 08/03/24 19:20 ED Decision to Admit Stat 08/05/24 14:58 Consult Oncology Routine Pending Results Patient Have Any Pending Studies at Discharge: No Discharge Instructions Given to Patient (Per Discharging Provider) You were seen in the hospital for malnutrition, depression/anxiety, pancytopenia, hyponatremia, and concern for potential alcohol withdrawal. You moved outside of the alcohol withdrawal. You are clinically stable. Your cell counts remain low, you have been prescribed multiple vitamins as noted with follow-up to your PCP and hematology with outpatient checks to make sure that these gradually improve. You did not have any evidence of pneumonia at time of discharge. Your heart rate was regular time of discharge. Your low sodium levels resolved by time of discharge. You remained weak and easily fatigued, it was recommended that you remain at rehab for additional monitoring and strengthening Please continue Protonix 40 mg by mouth twice daily for erosive gastropathy It is recommended you take a nutrition supplement such as boost with meals 3 times daily Your home depression/anxiety medications have been resumed Please take MiraLAX daily for constipation. You may also use Dulcolax if no bowel movement in 1-2 days, and milk of magnesia if no bowel movement in another 1-2 days after that. You have been prescribed multiple vitamins as below due to both malnutrition and to help your cell counts recover. You should have a repeat CBC and BMP within 1 week performed at either rehab or by your PCP. Follow-up with hematology oncology is being scheduled for you as noted If you develop any new or worsening symptoms including fever, chills, sweats, chest pain, chest pressure, difficulty breathing, uncontrolled nausea/vomiting, rash, wheezing, passing out or nearly passing out, bleeding, black/bloody bowel movements, or other new or concerning symptoms please call your primary care physician, or call 911 for re-evaluation in the emergency department if you are very concerned. Total Time Total Time Spent Total Time Spent (In Minutes): Time spend day of discharge 25 minutes including direct patient care, documentation, review of labs and images, and coordination of care. Coding Level of Care Code 54804 INP/OBS DISCH >30 MIN Diagnoses Anxiety F41.9 Alcohol dependence with unspecified alcohol-induced disorder F10.29 Substance use status: unspecified alcohol-induced disorder Acute hyponatremia E87.1 Pancytopenia D61.818 Unintentional weight loss R63.4 Failure to thrive in adult R62.7 Chronic respiratory failure with hypoxia, on home oxygen therapy J96.11; Z99.81 Acute on chronic respiratory failure with hypoxia and hypercapnia J96.21; J96.22 Constipation K59.00"
[2024-08-10] MEDS: POTASSIUM CHLORIDE CRTAB 20 MEQ TABCR PO STA (10:06)
[2024-08-10] MEDS: MAGNESIUM HYDROXIDE SUSP 30 ML UDC PO ONE (10:52)
[2024-08-10 11:54] VITALS: BP 97/64; RESP 24; TEMP 98.1; O2SAT 95
[2024-08-10 16:08] VITALS: PULSE 89
== END 2024-08-10 14:12 | DRG 808 ==
LOC: ED 14:29 → 2W 21:06 → SUATTDRO 21:06 → 2W 23:08
DX: F10.239 Alcohol dependence with withdrawal, unspecified; D61.818 Other pancytopenia; J43.9 Emphysema, unspecified; E16.2 Hypoglycemia, unspecified; R64 Cachexia; K59.00 Constipation, unspecified; E43 Unspecified severe protein-calorie malnutrition; Z99.81 Dependence on supplemental oxygen; K25.9 Gastric ulcer, unspecified as acute or chronic, without hemorrhage or perforation; Z68.1 Body mass index [BMI] 19.9 or less, adult; J96.21 Acute and chronic respiratory failure with hypoxia; R62.7 Adult failure to thrive; J96.22 Acute and chronic respiratory failure with hypercapnia; E87.1 Hypo-osmolality and hyponatremia; F32.A Depression, unspecified; F41.9 Anxiety disorder, unspecified